=== PATIENT | male | born 1970 | race Caucasian/White ===

== ENCOUNTER 2016-04-18 11:37 | Inpatient (IN) | payer MEDICARE, BC, OTHER ==
[2016-04-18] MEDS ORDERED: HYDROmorphone 1 MG/ML 1 ML SYRINGE IVP STA ×2 (12:03→13:35)
[2016-04-18] MEDS ORDERED: SODIUM CHLORIDE 0.9% 1,000 ML IV STA (12:03)
[2016-04-18] MEDS ORDERED: SODIUM CHLORIDE 0.9% 500 ML IV STA (12:03)
[2016-04-18] MEDS ORDERED: ONDANSETRON 4 MG/2 ML VIAL IVP STA (12:03)
[2016-04-18 13:28] LABS: Basophils # (A) 0.1 k/uL (0-0.2); Basophils % (A) 0 %; CH 29.5; CHCM 31.1; Eosinophils # (A) 0.3 k/uL (0-0.7); Eosinophils % (A) 2 %; HCT 42.8 % (39.0-53.0); HDW 2.98; HGB 13.2 gm/dL (13.0-17.5); Hypochromasia Moderate; Large Platelets Flag Marked; Luc # (Auto) 0.39; Luc % (Auto) 3; Lymphocytes # (A) 2.5 k/uL (1.0-4.8); Lymphocytes % (A) 16 %; MCH 29.4 pg (25.0-35.0); MCHC 30.9 g/dL (31.0-37.0); MCV 95.3 fL (80.0-100.0); Mean Platelet Volume 14.1; Monocytes # (A) 1.8 k/uL (0-1.0); Monocytes % (A) 12 %; Neutrophils # (A) 10.8 k/uL (1.3-7.7); Neutrophils % (A) 68 %; RBC 4.49 m/uL (4.30-5.90); RDW 15.9 % (11.5-15.5); WBC 15.8 k/uL (3.8-10.6); WBC (Perox) 16.19
[2016-04-18 13:32] LABS: ALT 31 U/L (21-72); AST 25 U/L (17-59); Alkaline Phosphatase 96 U/L (38-126); Amylase 298 U/L (30-110); Anion Gap 13 mmol/L; Blood Urea Nitrogen 16 mg/dL (9-20); Calcium 8.8 mg/dL (8.4-10.2); Carbon Dioxide 30 mmol/L (22-30); Chloride 100 mmol/L (98-107); Glucose 104 mg/dL (74-99); Non-African American GFR(MDRD) >60 (>60 ml/min/1.73 sqM); Potassium 4.2 mmol/L (3.5-5.1); Sodium 143 mmol/L (137-145); Total Bilirubin 0.5 mg/dL (0.2-1.3); Total Protein 7.2 g/dL (6.3-8.2)
[2016-04-18 13:35] LABS: INR 3.9 (<1.1); Partial Thromboplastin Time 35.9 sec (22.0-30.0)
[2016-04-18 13:45] LABS: Creatine Kinase 24 U/L (55-170)
--- NOTE | 2016-04-18 13:46 | XR ---
EXAMINATION TYPE: XR KUB DATE OF EXAM: 04/18/2016 1:41 PM COMPARISON: 09/22/2015 HISTORY: Abdominal pain, nausea and vomiting TECHNIQUE: Single supine KUB image of the abdomen is obtained. FINDINGS: The osseous structures are intact. The bowel gas pattern is nonspecific. Lung bases are clear. 5 mm c alcification overlying the left upper quadrant. There is a chronic appearing deformity of the left ri b cage suggestive of previous trauma. The heart is enlarged. Air-fluid levels in the right lower quadrant noted. IMPRESSION: 1. Could not exclude a 5 mm left renal calculus. Curvilinear calcification overlying the left upper q uadrant is stable and nonspecific. 2. Nonspecific abdomen with air-fluid levels correlate for ileus or enteritis. Partial obstruction no t excluded.
[2016-04-18 13:56] LABS: Appearance,Urine Clear (Clear); Bilirubin,Urine Negative (Negative); Glucose,Urine (UA) Negative (Negative); Ketones,Urine 1+ (Negative); Leukocyte Esterase,Urine Negative (Negative); Nitrite,Urine Negative (Negative); PH, Urine 7.5 (5.0-8.0); Protein,Urine Trace (Negative); Specific Gravity,Urine 1.008 (1.001-1.035); UA Billing (MACRO vs. MICRO) CHEM; Urobilinogen,Urine <2.0 mg/dL (<2.0)
[2016-04-18 13:58] LABS: Creatine Kinase MB <0.2 ng/mL (0.0-2.4); Troponin I <0.012 ng/mL (0.000-0.034)
[2016-04-18] MEDS ORDERED: SODIUM CHLORIDE 0.9% 500 ML IV ONE (14:30)
[2016-04-18] MEDS ORDERED: RX INFO: IV CONTRAST WAS GIVEN 1 EACH MISC MISCELLANE PRN (14:31)
[2016-04-18] MEDS ORDERED: cefTRIAXone 2,000 MG in SODIUM CHLORIDE 0.9% 100 ML IVPB STA (14:31)
--- NOTE | 2016-04-18 14:40 | ED ---
Abdominal Pain HPI - General Chief Complaint: Abdominal Pain Stated Complaint: ABDOMINAL PAIN Time Seen by Provider: 04/18/16 11:54 Source: patient Mode of arrival: wheelchair Limitations: no limitations - History of Present Illness Initial Comments: Abdominal pain him a he has a history of pancreatitis he feels it's back again complaining about the epigastric pain started about 2 days ago he been now vomiting been nauseous and also had a diarrhea. He is immunocompromised he is pancreatic transplant patient he denies any fever no chills he does have a history of alcohol use in the past he has a history of complex transplant is included pancreatitis and some other internal organs. He denies any fever has some chills no neck pain no chest pain does have abdominal pain and diarrhea no frequency urgency dysuria no weakness of upper or lower extremity - Related Data Home Medications Medication Instructions Recorded Confirmed Calcium Citrate/Vitamin D3 1 tab PO BID 09/02/13 04/18/16 [Calcium Citrate - Vit D3 Tab] Clopidogrel [Plavix] 75 mg PO QAM 09/02/13 04/18/16 Ferrous Gluconate 325 mg PO BID 09/02/13 04/18/16 Magnesium Gluconate [Magonate] 500 mg PO BID 09/02/13 04/18/16 Methadone [Dolophine] 5 mg PO BID 09/02/13 04/18/16 Metoprolol Tartrate [Lopressor] 50 mg PO BID 09/02/13 04/18/16 Multivitamin [Men's Multi-Vitamin] 1 tab PO QAM 09/02/13 04/18/16 Omeprazole [PriLOSEC] 40 mg PO AC-BID 09/02/13 04/18/16 Sertraline [Zoloft] 100 mg PO QAM 09/02/13 04/18/16 Sulfamethox-Tmp 800-160Mg [Bactrim 0.5 tab PO MOWEFR 09/02/13 04/18/16 DS 800-160 mg] Tacrolimus [Prograf] 1 mg PO HS 09/02/13 04/18/16 Tacrolimus [Prograf] 2 mg PO AC-BRKFST 09/02/13 04/18/16 Tamsulosin HCl [Flomax] 0.4 mg PO QAM 09/02/13 04/18/16 Ursodiol [Actigall] 300 mg PO BID 09/02/13 04/18/16 clonazePAM [KlonoPIN] 0.5 mg PO BID 09/02/13 04/18/16 Albuterol Sulfate [Proair 2 puff PO RT-Q4H PRN 09/22/15 04/18/16 Respiclick] Cholecalciferol (Vitamin D3) 10,000 unit PO QAM 09/22/15 04/18/16 [Vitamin D3] Hydrocodone/Acetaminophen 1 tab PO QID 09/22/15 04/18/16 [Hydrocodon-Acetaminophn 10-325] Hydrocortisone 15 mg PO BID 09/22/15 04/18/16 Mspayy-Qfkffpcu-Nssjnsj [Zenpep 10] 1 cap PO BID 09/22/15 04/18/16 Metoclopramide [Reglan] 10 mg PO BID 09/22/15 04/18/16 Naloxegol Oxalate [Movantik] 25 mg PO HS 09/22/15 04/18/16 Sertraline [Zoloft] 50 mg PO QAM 09/22/15 04/18/16 Warfarin Sodium 3 mg PO HS 09/22/15 04/18/16 Previous Rx's Medication Instructions Recorded Ondansetron HCl [Zofran] 4 mg PO TID #30 tablet 04/03/16 Allergies Allergy/AdvReac Type Severity Reaction Status Date / Time ketorolac tromethamine AdvReac migraines Verified 04/18/16 11:50 [From Toradol] morphine AdvReac Itching Verified 04/18/16 11:50 Review of Systems ROS Statement: Those systems with pertinent positive or pertinent negative responses have been documented in the HPI. ROS Other: All systems not noted in ROS Statement are negative. 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, gastritis, gastroparesis, pt regurgitates after eating , past pancreatitis, adrenal insufficiency, chronic anemia, tracheobronchitis History of Any Multi-Drug Resistant Organisms: MRSA Date of last positivie culture/infection: 2002 MDRO Source:: "carrier" only per pt nasal swab Additional Past Surgical History / Comment(s): STATES MULTIPLE STOMACH SX, 2003 HAD 4 ORGAN TRANSPLANT: SMALL BOWEL, PANCREAS, duodenum, AND STOMACH performed at the [facility], knee surgical repair after injury on a barbed wire fence, as infant he had heart surgery for closed valves, EGDs and colonoscopies with last EGD 08/08/15. Past Anesthesia/Blood Transfusion Reactions: No Reported Reaction Additional Past Anesthesia/Blood Transfusion Reaction / Comment(s): STATES R/T TO MULTIPLE SX HE REQUIRES A LOT OF MEDICATION for anesthesia. He has had multiple blood transfusions without reaction. Past Psychological History: Anxiety, Depression Additional Psychological History / Comment(s): Pt resides with his significant other. He is independent. He drives. Smoking Status: Former smoker Past Alcohol Use History: Occasional Additional Past Alcohol Use History / Comment(s): Started smoking about 1981 and quit in 2011 Past Drug Use History: None Reported - Past Family History Mother History Unknown: Yes Additional Family Medical History / Comment(s): pt is adopted, does not know any hx Father History Unknown: Yes Additional Family Medical History / Comment(s): pt is adopted, does not know any hx General Exam - General Exam Comments Initial Comments: General: The patient is awake and alert, severe distress, he looks pale GCS is 15 Skin: Skin is warm and dry and no rashes or lesions are noted. Eye: Pupils are equal, round and reactive to light, extra-ocular movements are intact; there is normal conjunctiva bilaterally. Ears, nose, mouth and throat: There are moist mucous membranes and no oral lesions. Neck: The neck is supple, there is no tenderness . Cardiovascular: There is a regular rate and rhythm. No murmur, rub or gallop is appreciated. Respiratory: To auscultation bilateral, no wheezing no rhonchi no distress respiratory simeon noticed Gastrointestinal: Fairly tender in epigastric area and tender and paraumbilical area, decreased breath sounds no guarding no rebounds Back: There is no tenderness to palpation in the midline. There is no obvious deformity. Musculoskeletal: Normal ROM, no tenderness, There is no pedal edema. There is no calf tenderness or swelling. No cords were appreciated. Neurological: CN II-XII intact, Cranial nerves III through XII are intact. There are no obvious motor or sensory deficits. Coordination appears grossly intact. Speech is normal. Psychiatric: Cooperative, appropriate mood & affect, normal judgment. Limitations: no limitations Course Vital Signs 04/18/16 04/18/16 04/18/16 11:48 12:57 13:34 Temperature 99.2 F 98.7 F Pulse Rate 90 78 Respiratory 18 18 16 Rate Blood Pressure 138/65 156/75 145/76 O2 Sat by Pulse 95 98 98 Oximetry 04/18/16 04/18/16 14:15 14:53 Temperature 99.0 F Pulse Rate 87 121 H Respiratory 16 20 Rate Blood Pressure 162/83 162/83 O2 Sat by Pulse 94 L 94 L Oximetry Reason was reassessed at 1500, attempt was 99.2 white count is 15.8 with a left shift INR is 3.9 compressive metabolic panel is within normal range lipase lipase is 1600 Amylase is advised to 98, considering his pain or history of pancreatic transplant with the leukocytosis mild fever rule culture blood as well as urine and start him and rhythm. Can't about x-ray Rocephin 2 g IV him over the admit him and Dr. Carrion service, CT of the abdomen be performed as well Medical Decision Making - Lab Data Result diagrams: 04/18/16 12:50 04/18/16 12:50 Lab Results 04/18/16 04/18/16 04/18/16 Range/Units 12:50 12:50 12:50 WBC 15.8 H (3.8-10.6) k/uL RBC 4.49 (4.30-5.90) m/uL Hgb 13.2 (13.0-17.5) gm/dL Hct 42.8 (39.0-53.0) % MCV 95.3 (80.0-100.0) fL MCH 29.4 (25.0-35.0) pg MCHC 30.9 L (31.0-37.0) g/dL RDW 15.9 H (11.5-15.5) % Plt Count 171 (150-450) k/uL Neutrophils % 68 % Lymphocytes % 16 % Monocytes % 12 % Eosinophils % 2 % Basophils % 0 % Neutrophils # 10.8 H (1.3-7.7) k/uL Lymphocytes # 2.5 (1.0-4.8) k/uL Monocytes # 1.8 H (0-1.0) k/uL Eosinophils # 0.3 (0-0.7) k/uL Basophils # 0.1 (0-0.2) k/uL Hypochromasia Moderate PT (9.0-12.0) sec INR (<1.1) APTT (22.0-30.0) sec Sodium 143 (137-145) mmol/L Potassium 4.2 (3.5-5.1) mmol/L Chloride 100 (98-107) mmol/L Carbon Dioxide 30 (22-30) mmol/L Anion Gap 13 mmol/L BUN 16 (9-20) mg/dL Creatinine 1.22 (0.66-1.25) mg/dL Est GFR (MDRD) Af Amer >60 (>60 ml/min/1.73 sqM) Est GFR (MDRD) Non-Af >60 (>60 ml/min/1.73 sqM) Glucose 104 H (74-99) mg/dL Plasma Lactic Acid [place] (0.7-2.0) mmol/L Calcium 8.8 (8.4-10.2) mg/dL Total Bilirubin 0.5 (0.2-1.3) mg/dL AST 25 (17-59) U/L ALT 31 (21-72) U/L Alkaline Phosphatase 96 (38-126) U/L Total Creatine Kinase 24 L (55-170) U/L CK-MB (CK-2) <0.2 (0.0-2.4) ng/mL CK-MB (CK-2) Rel Index Troponin I <0.012 (0.000-0.034) ng/mL Total Protein 7.2 (6.3-8.2) g/dL Albumin 3.9 (3.5-5.0) g/dL Amylase 298 H (30-110) U/L Lipase 1609 H (23-300) U/L Urine Color Urine Appearance (Clear) Urine pH (5.0-8.0) Ur Specific [place] (1.001-1.035) Urine Protein (Negative) Urine Glucose (UA) (Negative) Urine Ketones (Negative) Urine Blood (Negative) Urine Nitrate (Negative) Urine Bilirubin (Negative) Urine Urobilinogen (<2.0) mg/dL Ur Leukocyte Esterase (Negative) 04/18/16 04/18/16 04/18/16 Range/Units 12:50 12:50 13:45 WBC (3.8-10.6) k/uL RBC (4.30-5.90) m/uL Hgb (13.0-17.5) gm/dL Hct (39.0-53.0) % MCV (80.0-100.0) fL MCH (25.0-35.0) pg MCHC (31.0-37.0) g/dL RDW (11.5-15.5) % Plt Count (150-450) k/uL Neutrophils % % Lymphocytes % % Monocytes % % Eosinophils % % Basophils % % Neutrophils # (1.3-7.7) k/uL Lymphocytes # (1.0-4.8) k/uL Monocytes # (0-1.0) k/uL Eosinophils # (0-0.7) k/uL Basophils # (0-0.2) k/uL Hypochromasia PT 38.0 H (9.0-12.0) sec INR 3.9 (<1.1) APTT 35.9 H (22.0-30.0) sec Sodium (137-145) mmol/L Potassium (3.5-5.1) mmol/L Chloride (98-107) mmol/L Carbon Dioxide (22-30) mmol/L Anion Gap mmol/L BUN (9-20) mg/dL Creatinine (0.66-1.25) mg/dL Est GFR (MDRD) Af Amer (>60 ml/min/1.73 sqM) Est GFR (MDRD) Non-Af (>60 ml/min/1.73 sqM) Glucose (74-99) mg/dL Plasma Lactic Acid Barrie 1.5 (0.7-2.0) mmol/L Calcium (8.4-10.2) mg/dL Total Bilirubin (0.2-1.3) mg/dL AST (17-59) U/L ALT (21-72) U/L Alkaline Phosphatase (38-126) U/L Total Creatine Kinase (55-170) U/L CK-MB (CK-2) (0.0-2.4) ng/mL CK-MB (CK-2) Rel Index Troponin I (0.000-0.034) ng/mL Total Protein (6.3-8.2) g/dL Albumin (3.5-5.0) g/dL Amylase (30-110) U/L Lipase (23-300) U/L Urine Color Yellow Urine Appearance Clear (Clear) Urine pH 7.5 (5.0-8.0) Ur Specific [place] 1.008 (1.001-1.035) Urine Protein Trace H (Negative) Urine Glucose (UA) Negative (Negative) Urine Ketones 1+ H (Negative) Urine Blood Negative (Negative) Urine Nitrate Negative (Negative) Urine Bilirubin Negative (Negative) Urine Urobilinogen <2.0 (<2.0) mg/dL Ur Leukocyte Esterase Negative (Negative) Disposition Clinical Impression: Pancreatitis, Ileus, Pancreatitis of transplanted pancreas Disposition: ADMITTED IP TO THIS [facility] Condition: Fair
[2016-04-18] MEDS ORDERED: NALOXONE 0.4 MG/ML 1 ML VIAL IV PRN (15:25)
[2016-04-18] MEDS: HYDROmorphone 1 MG/ML 1 ML SYRINGE IVP PRN ×4 (15:32→22:14)
[2016-04-18] MEDS ORDERED: ALBUTEROL NEBULIZED 2.5 MG/3 ML INHALATION PRN (15:34)
--- NOTE | 2016-04-18 16:28 | CT ---
EXAMINATION TYPE: CT abdomen pelvis w con DATE OF EXAM: 04/18/2016 4:03 PM COMPARISON: Chest CT November 09, 2012 HISTORY: Middle upper abdominal pain with nausea and vomiting x [address] DLP: 1684.00 mGycm, Automated Exposure Control for Dose Reduction was Utilized. CONTRAST: CT scan of the abdomen and pelvis is performed without oral and with IV Contrast, patient injected wi th 100 mL of Omnipaque 300. FINDINGS: LUNG BASES: Some left-sided gynecomastia is suspected on axial image 1 versus possible scar, partiall y imaged. This correlates with gynecomastia on prior chest CT. LIVER/GB: No significant abnormality is appreciated. PANCREAS: There is truncation of distal pancreatic body and tail. Pancreatic duct is mildly dilated i n the proximal body and head. No obvious mass is present. SPLEEN: Spleen is tough to visualize distinct from liver but likely is absent. ADRENALS: No significant abnormality is seen. KIDNEYS: A few low-density subcentimeter lesions scattered throughout both kidneys likely reflect sim ple cysts but are too small to definitively characterize. BOWEL: The evaluation of bowel is suboptimal due to lack of enteric contrast. There is no suspicious small or large bowel dilatation. There is suspected surgical sutures near level of gastric antrum see n best coronal image 29. There is poor visualization of duodenal sweep which may be surgically resect ed. There is suspected surgical sutures in the proximal right transverse colon. Distal remnant sigmoi d colon extends into the right lower quadrant which is mildly prominent and fluid-filled, this ends i n surgical sutures in the mid to lower abdomen near axial image 57. PROSTATE/SEMINAL VESICLES: No gross abnormality seen. LYMPH NODES: No greater than 1cm abdominal or pelvic lymph nodes are appreciated. OSSEOUS STRUCTURES: Disc space narrowing L4-L5 level is present. OTHER: There is unusual prominent vessel arising from the anterior aorta infrarenal location extendin g towards the left upper abdomen appears to have communication through branch vessel of the SMA. This is seen best on axial image 32. Curvilinear density along left lateral margin could reflect sutures. There is moderate plaque in this vessel measuring up to 2.9 cm in diameter. This could reflect fistu lous communication or aneurysm related to prior splenectomy. Clinical correlation is advised. Correla tion with old outside studies would be beneficial. Below this there is felt likely occluded LORENA to le ft of midline near axial image 46. Slight swirling of mesentery in the epigastric region is seen. IMPRESSION: 1. No bowel obstruction is seen. No significant acute finding is identified to account for patient's symptoms. 2. Unusual mid abdominal findings, strict correlation with history of prior surgery identified as the re is suspected surgery involving the colon, spleen, and duodenal sweep. There is abnormal dilated ve ssel originating from the anterior infrarenal abdominal aorta of uncertain etiology. Correlation with old outside studies and prior surgery is necessary.
[2016-04-18] MEDS: SULFAMETHOX-TMP 400-80MG 1 EACH TAB PO SCH (17:07)
[2016-04-18] MEDS: HYDROcodone/APAP 10-325MG 1 EACH TAB PO SCH ×2 (18:21→21:56)
[2016-04-18] MEDS: METOPROLOL TARTRATE 50 MG TAB PO SCH (20:14)
[2016-04-18] MEDS: URSODIOL 300 MG CAP PO SCH (20:15)
[2016-04-18] MEDS: METOCLOPRAMIDE 10 MG TAB PO SCH (20:15)
[2016-04-18] MEDS: LIPASE 5,000/PROTEASE 17,000/AMYLASE 27,0000 PO SCH (20:15)
[2016-04-18] MEDS: HYDROCORTISONE 10 MG TAB PO SCH (20:16)
[2016-04-18] MEDS: TACROLIMUS 1 MG CAP PO SCH (20:16)
[2016-04-18] MEDS: MAGNESIUM OXIDE 400 MG TAB PO SCH (20:16)
[2016-04-18] MEDS: METHADONE 5 MG TAB PO SCH (20:32)
[2016-04-18] MEDS: clonazePAM 0.5 MG TAB PO SCH (20:32)
[2016-04-18 20:40] LABS: INR 4.2 (<1.1); Prothrombin Time 41.1 sec (9.0-12.0)
[2016-04-18] MEDS ORDERED: NON-FORMULARY DRUG (Naloxegol Oxalate [Movantik] 25 MG) PO SCH (21:00)
[2016-04-19] MEDS: HYDROmorphone 1 MG/ML 1 ML SYRINGE IVP PRN ×11 (00:11→23:29)
[2016-04-19] MEDS: HYDROcodone/APAP 10-325MG 1 EACH TAB PO SCH ×5 (01:34→23:28)
[2016-04-19] MEDS: DILTIAZEM 125 MG in SODIUM CHLORIDE 0.9% 100 ML IV SCH ×2 (02:30→15:06)
[2016-04-19 06:59] LABS: Basophils # (A) 0.1 k/uL (0-0.2); Basophils % (A) 1 %; CH 28.9; CHCM 29.4; Eosinophils # (A) 0.1 k/uL (0-0.7); Eosinophils % (A) 1 %; HCT 45.2 % (39.0-53.0); HDW 2.79; HGB 13.4 gm/dL (13.0-17.5); Hypochromasia Marked; Large Platelets Flag Marked; Luc # (Auto) 0.42; Luc % (Auto) 3; Lymphocytes # (A) 2.5 k/uL (1.0-4.8); Lymphocytes % (A) 19 %; MCH 29.3 pg (25.0-35.0); MCHC 29.7 g/dL (31.0-37.0); MCV 98.7 fL (80.0-100.0); Macrocytosis Slight; Mean Platelet Volume 14.2; Monocytes # (A) 1.4 k/uL (0-1.0); Monocytes % (A) 11 %; Neutrophils # (A) 8.5 k/uL (1.3-7.7); Neutrophils % (A) 66 %; RBC 4.58 m/uL (4.30-5.90); RDW 15.7 % (11.5-15.5); WBC 12.9 k/uL (3.8-10.6); WBC (Perox) 14.88
[2016-04-19 07:36] LABS: Amylase 400 U/L (30-110)
[2016-04-19] MEDS: clonazePAM 0.5 MG TAB PO SCH ×2 (08:27→21:18)
[2016-04-19] MEDS: TACROLIMUS 1 MG CAP PO SCH ×2 (08:28→21:15)
[2016-04-19] MEDS: CLOPIDOGREL 75 MG TAB PO SCH (08:28)
[2016-04-19] MEDS: SERTRALINE 100 MG TAB PO SCH (08:29)
[2016-04-19] MEDS: METOCLOPRAMIDE 10 MG TAB PO SCH ×2 (08:29→21:14)
[2016-04-19] MEDS: MAGNESIUM OXIDE 400 MG TAB PO SCH ×2 (08:29→21:14)
[2016-04-19] MEDS: SERTRALINE 50 MG TAB PO SCH (08:29)
[2016-04-19] MEDS: URSODIOL 300 MG CAP PO SCH ×2 (08:29→21:15)
[2016-04-19] MEDS: LIPASE 5,000/PROTEASE 17,000/AMYLASE 27,0000 PO SCH ×2 (08:30→21:13)
[2016-04-19] MEDS: HYDROCORTISONE 10 MG TAB PO SCH ×2 (08:30→21:13)
[2016-04-19] MEDS: METOPROLOL TARTRATE 50 MG TAB PO SCH ×2 (08:31→21:14)
[2016-04-19] MEDS: TAMSULOSIN 0.4 MG CAP.ER.24H PO SCH (08:32)
[2016-04-19] MEDS: METHADONE 5 MG TAB PO SCH ×2 (08:39→21:18)
--- NOTE | 2016-04-19 08:58 | HP ---
DATE OF ADMISSION: 04/18/2016 CHIEF COMPLAINT: Abdominal pain. Mr. Dubon is a 46-year-old male with known history of pancreatitis, ( ) transplant including pancreas, stomach and duodenum, and small intestine and chronic pain, came to the hospital with complaints of abdominal pain, mainly in the epigastric region and unable to tolerate any p.o. diet. Patient does have pancreatic transplant at ( ) and is immunocompromised. Otherwise, denied any fever or chills. No chest pain or short of breath. Patient does history of alcohol abuse in the past. Patient denied recent illnesses and patient did have a similar admission with acute pancreatic a few months ago, patient was also found to have elevated WBC count and was started on antibiotics in the form of Zosyn empirically. Patient was found to have elevated lipase level at 1609 and ( ) level 298 on admission. REVIEW OF SYSTEMS: CONSTITUTIONAL: No fever. No chills. No weakness, malaise. RESPIRATORY: No cough or sputum production. CARDIOVASCULAR: No chest pain or short of breath. No leg swelling. ABDOMEN: The patient does have epigastric abdominal pain and nausea and no vomiting. No diarrhea. GENITOURINARY: No dysuria. No hematuria. ENDOCRINE: Negative. PSYCHIATRIC: Anxiety, anxious and ( ). All other fourteen-point review of systems negative except as above. 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 Chronic anemia and tracheobronchitis. History of methicillin-resistant Staphylococcus aureus. PAST SURGICAL HISTORY: Multiple stomach surgeries. In 2002, patient had ( ) transplant, small bowel, pancreas and duodenum and stomach performed at the [facility], left ( ) surgical repair after injury on barbed wire fence, ( ) he had heart surgery for closed valve, EGD and colonoscopy with last EGD on 08/08/2015. PSYCHOSOCIAL HISTORY: Anxiety and depression. SOCIAL HISTORY: Patient resides with his significant other. He is independent. He drives. Former smoker, started smoking age about 1981 and quit in 2011. FAMILY HISTORY: Patient adopted, not known. Home medications including. 1. Vitamin D3. 2. Lasix. 3. Ferrous Gluconate. 4. Magnesium gluconate. 5. Methadone. 6. Metoprolol. 7. Multivitamins. 8. Omeprazole. 9. Sertraline. 10. Bactrim DS 0.5 tablets p.o. Saturday, Saturday, Saturday. 11. Tacrolimus. 12. Tamsulosin. 13. Estradiol. 14. Klonopin. 15. ( ) sulfate. 16. Vitamin D3. 17. [place] 10. 18. Hydrocortisone. 19. ( ). 20. Reglan. 21. Movantick. 22. Zoloft. 23. Warfarin. PHYSICAL EXAMINATION: A 46-year-old male lying in bed. Awake, alert, oriented, x3. Appears to be in mild distress due to pain. VITALS: Blood pressure is 132/73, pulse 101, respirations 18, temperature afebrile. Pulse ox is 95% on room air. HEENT: Atraumatic, normocephalic. Neck is supple. No JVD. CVS: S1, S2 heard. No murmurs, no gallop, no rub. LUNGS: Bilateral air entry is present. No wheezing. No crackles. Nonlabored breathing. Decreased breath sounds bilaterally of lower lobes. ABDOMEN: Soft, moderate tenderness in the epigastric region and the upper abdomen. No guarding or rigidity. Bowel sounds are present. AUDIT MGR: Awake, alert and oriented x3. No focal neurological deficits. Cranial nerves grossly intact. EXTREMITIES: No edema. Pulses palpable bilaterally. No clubbing or cyanosis. PSYCHIATRIC: Cooperative, anxious. Appears to be in pain. LABORATORY DATA: WBC 15.8, hemoglobin 13.2, platelets 171, INR 3.9, sodium 143, potassium 4.2, chloride 100, bicarb is 30. BUN 16, creatinine 1.22. Liver enzymes within normal limits. Amylase 298 and lipase is 1609. UA negative for infection. INR is 3.[address] abdomen and pelvis showed no bowel obstruction ( ) mid abdominal findings. IMPRESSION: 1. Acute on chronic pancreatitis with intractable abdominal pain. 2. History of pancreas transplant. 3. History of ( ) transplant including pancreas, duodenum and ( ), in 2002 at [facility]. 4. 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 5. Atrial fibrillation, chronic. 6. Chronic pain syndrome on methadone. 7. Chronic obstructive pulmonary disease. 8. Gastroesophageal reflux disease. 9. History of Methicillin-resistant Staph aureus. 10. Adrenal insufficiency. 11. Chronic anemia. 12. Coumadin coagulopathy INR level of 3.9. 13. Chronic adrenal insufficiency. 14. Anemia of chronic disease. 15. Gastroparesis. 16. Previous history of smoking. 17. Paroxysmal atrial fibrillation. 18. Atrial fibrillation with rapid ventricular rate on admission, resolved now. DISCUSSION AND PLAN: This 45 -year-old male admitted to the hospital with acute pancreatitis, will continue with the IV fluids, pain management and Dilaudid, keep the patient n.p.o. until the pain improves and start back on his home medications including pain medications and once patient is tolerating p.o. diet. Patient does have elevated white count is 15.6 and patient was given a dose of Zosyn due to being immunocompromised patient. Otherwise, patient does not have any fever or chills. We will continue with the Lopressor and follow up closely. Prognosis is guarded. Further recommendations based on clinical course.
[2016-04-19] MEDS ORDERED: PANTOPRAZOLE 40 MG/10 ML VIAL IV SCH (09:00)
--- NOTE | 2016-04-19 14:21 | P.CRDCN ---
History of Present Illness Consult date: 04/19/16 History of present illness: This is a 46-year-old gentleman with history of smoking and alcohol use and also history of pancreatic transplantation done several years ago who was admitted to the hospital with complaints of nausea and vomiting and abdominal pain. It appears that patient has been treated for pancreatitis. Last night patient went into atrial fibrillation with fast and corresponds. Patient was asymptomatic. However patient was transferred for IV Cardizem therapy. This morning patient converted back to sinus rhythm. He seemed to be asymptomatic from atrial fibrillation. He does give history of having atrial fibrillation and also in the past several years ago. He claims he is not chronically in atrial fibrillation. He is also anticoagulated. I'm going to discontinue Cardizem at this time and continue with metoprolol. He is taking 50 mg by mouth twice a day. We cannot increase the dose because of low blood pressures. We'll continue to watch him and if he has any further recurrence ,may consider adding antiarrhythmic medication. However once his acute illness settles, he may stay in a sinus rhythm. 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 History of Any Multi-Drug Resistant Organisms: MRSA Date of last positivie culture/infection: 2002 MDRO Source:: unsure where when had organ transplant Additional Past Surgical History / Comment(s): STATES MULTIPLE STOMACH SX, 2002 HAD 4 ORGAN TRANSPLANT: SMALL BOWEL, PANCREAS, duodenum, AND STOMACH performed at the [facility], knee surgical repair after injury on a barbed wire fence, as infant he had heart surgery for closed valves, EGDs and colonoscopies with last EGD 08/08/15. Past Anesthesia/Blood Transfusion Reactions: No Reported Reaction Additional Past Anesthesia/Blood Transfusion Reaction / Comment(s): STATES R/T TO MULTIPLE SX HE REQUIRES A LOT OF MEDICATION for anesthesia. He has had multiple blood transfusions without reaction. Past Psychological History: Anxiety, Depression Additional Psychological History / Comment(s): Pt resides with his significant other. He is independent. He drives. Smoking Status: Former smoker Past Alcohol Use History: Occasional Additional Past Alcohol Use History / Comment(s): Started smoking about 1981 and quit in 2011 Past Drug Use History: None Reported - Past Family History Mother History Unknown: Yes Additional Family Medical History / Comment(s): pt is adopted, does not know any hx Father History Unknown: Yes Additional Family Medical History / Comment(s): pt is adopted, does not know any hx Medications and Allergies Home Medications Medication Instructions Recorded Confirmed Type Calcium Citrate/Vitamin D3 1 tab PO BID 09/02/13 04/18/16 History [Calcium Citrate - Vit D3 Tab] Clopidogrel [Plavix] 75 mg PO QAM 09/02/13 04/18/16 History Ferrous Gluconate 325 mg PO BID 09/02/13 04/18/16 History Magnesium Gluconate [Magonate] 500 mg PO BID 09/02/13 04/18/16 History Methadone [Dolophine] 5 mg PO BID 09/02/13 04/18/16 History Metoprolol Tartrate [Lopressor] 50 mg PO BID 09/02/13 04/18/16 History Multivitamin [Men's Multi-Vitamin] 1 tab PO QAM 09/02/13 04/18/16 History Omeprazole [PriLOSEC] 40 mg PO AC-BID 09/02/13 04/18/16 History Sertraline [Zoloft] 100 mg PO QAM 09/02/13 04/18/16 History Sulfamethox-Tmp 800-160Mg [Bactrim 0.5 tab PO MOWEFR 09/02/13 04/18/16 History DS 800-160 mg] Tacrolimus [Prograf] 1 mg PO HS 09/02/13 04/18/16 History Tacrolimus [Prograf] 2 mg PO AC-BRKFST 09/02/13 04/18/16 History Tamsulosin HCl [Flomax] 0.4 mg PO QAM 09/02/13 04/18/16 History Ursodiol [Actigall] 300 mg PO BID 09/02/13 04/18/16 History clonazePAM [KlonoPIN] 0.5 mg PO BID 09/02/13 04/18/16 History Albuterol Sulfate [Proair 2 puff PO RT-Q4H PRN 09/22/15 04/18/16 History Respiclick] Cholecalciferol (Vitamin D3) 10,000 unit PO QAM 09/22/15 04/18/16 History [Vitamin D3] Hydrocodone/Acetaminophen 1 tab PO QID 09/22/15 04/18/16 History [Hydrocodon-Acetaminophn 10-325] Hydrocortisone 15 mg PO BID 09/22/15 04/18/16 History Xrrteu-Ufhqyfcc-Nveeagf [Zenpep 10] 1 cap PO BID 09/22/15 04/18/16 History Metoclopramide [Reglan] 10 mg PO BID 09/22/15 04/18/16 History Naloxegol Oxalate [Movantik] 25 mg PO HS 09/22/15 04/18/16 History Sertraline [Zoloft] 50 mg PO QAM 09/22/15 04/18/16 History Warfarin Sodium 3 mg PO HS 09/22/15 04/18/16 History Allergies Allergy/AdvReac Type Severity Reaction Status Date / Time ketorolac tromethamine AdvReac migraines Verified 04/18/16 11:50 [From Toradol] morphine AdvReac Itching Verified 04/18/16 11:50 Physical Exam Vitals: Vital Signs Temp Pulse Pulse Pulse Resp BP BP 04/19/16 12:49 97.6 F 88 14 04/19/16 08:00 97.7 F 83 14 04/19/16 04:10 97.8 F 104 H 18 04/19/16 00:02 120 H 04/18/16 21:40 98.4 F 86 17 04/18/16 21:30 140 H 04/18/16 20:30 144/75 04/18/16 20:15 140 H 04/18/16 18:18 99.1 F 95 16 136/68 04/18/16 16:00 98.2 F 101 H 18 132/73 04/18/16 15:37 16 BP Pulse Ox 04/19/16 12:49 96/56 94 L 04/19/16 08:00 113/57 94 L 04/19/16 04:10 114/78 94 L 04/19/16 00:02 04/18/16 21:40 128/78 95 04/18/16 21:30 04/18/16 20:30 04/18/16 20:15 04/18/16 18:18 91 L 04/18/16 16:00 95 04/18/16 15:37 Intake and Output 04/18/16 04/19/16 04/19/16 22:59 06:59 14:59 Output Total 300 200 Balance -300 -200 Output: Urine 300 200 Other: Voiding Method Toilet Weight 98.7 kg 98.7 kg Patient Weight 04/20/16 06:59 Weight 98.7 kg GENERAL EXAM: Patient is alert and oriented and appears to be in moderate distress from the pain. HEENT: Normocephalic. Normal reaction of pupils, equal size, normal range of extraocular motion. No erythema or exudates in the throat. NECK: No masses, no nuchal rigidity. CHEST: No chest wall deformity. LUNGS: Equal air entry with no crackles or wheeze. HEART: S1 and S2 normal with no audible mumurs or gallops. Regular rhythm ABDOMEN: Distended and the diffuse tenderness and multiple scars from previous surgeries . SKIN: No rashes CENTRAL NERVOUS SYSTEM: No focal deficits. EXTREMITIES: No cyanosis, clubbing or edema. Results 04/19/16 05:50 04/18/16 12:50 Coagulation 04/18/16 Range/Units 20:08 PT 41.1 H (9.0-12.0) sec CBC 04/19/16 Range/Units 05:50 WBC 12.9 H (3.8-10.6) k/uL RBC 4.58 (4.30-5.90) m/uL Hgb 13.4 (13.0-17.5) gm/dL Hct 45.2 (39.0-53.0) % Plt Count 182 (150-450) k/uL Current Medications Generic Name Dose Route Start Last Admin Trade Name Freq PRN Reason Stop Dose Admin Acetaminophen/Hydrocodone Bitart 1 each 04/18/16 18:00 04/19/16 12:40 Mcrae [place] 10 PO 1 each QID GUY Administration Albuterol Sulfate 2.5 mg 04/18/16 15:34 Ventolin Nebulized INHALATION RT-Q4H PRN Shortness Of Breath Lipase/Protease/Amylase 2 each 04/18/16 21:00 04/19/16 08:[address] 5,000 Units Capsule PO 2 each BID GUY Administration Clonazepam 0.5 mg 04/18/16 21:00 04/19/16 08:27 Klonopin PO 0.5 mg BID GUY Administration Clopidogrel Bisulfate 75 mg 04/19/16 09:00 04/19/16 08:28 Plavix PO 75 mg QAM GUY Administration Hydrocortisone 15 mg 04/18/16 21:00 04/19/16 08:30 Cortef PO 15 mg BID GUY Administration Hydromorphone HCl 1 mg 04/18/16 15:24 04/19/16 12:41 Dilaudid IVP 1 mg Q1HR PRN Administration Pain Diltiazem HCl 125 mg/ Sodium 125 mls @ 10 mls/hr 04/19/16 01:00 04/19/16 02: 30 Chloride IV 10 mg/hr .[id number] GUY 10 mls/hr 10 MG/HR Administration Magnesium Oxide 400 mg 04/18/16 21:00 04/19/16 08:29 Mag-Ox PO 400 mg BID GUY Administration Methadone HCl 5 mg 04/18/16 21:00 04/19/16 08:39 Dolophine PO 5 mg BID GUY Administration Metoclopramide HCl 10 mg 04/18/16 21:00 04/19/16 08:29 Reglan PO 10 mg BID GUY Administration Metoprolol Tartrate 50 mg 04/18/16 21:00 04/19/16 08:31 Lopressor PO 50 mg BID GUY Administration Miscellaneous Information 1 each 04/18/16 14:31 Rx Info: Iv Contrast Was Given MISCELLANE 04/20/16 14:32 DAILY PRN Per Protocol Naloxone HCl 0.2 mg 04/18/16 15:25 Narcan IV Q2M PRN Opioid Reversal Ondansetron HCl 4 mg 04/18/16 15:32 Zofran IVP Q8HR PRN Nausea And Vomiting Pantoprazole Sodium 40 mg 04/19/16 09:00 04/19/16 08:31 Protonix IV 40 mg DAILY GUY Administration Sertraline HCl 50 mg 04/19/16 09:00 04/19/16 08:29 Zoloft PO 50 mg QAM GUY Administration Sertraline HCl 100 mg 04/19/16 09:00 04/19/16 08:29 Zoloft PO 100 mg QAM GUY Administration Tacrolimus 1 mg 04/18/16 21:00 04/18/16 20:16 Prograf PO 1 mg HS GUY Administration Tacrolimus 2 mg 04/19/16 07:30 04/19/16 08:28 Prograf PO 2 mg AC-BRKFST GUY Administration Tamsulosin HCl 0.4 mg 04/19/16 09:00 04/19/16 08:32 Flomax PO 0.4 mg QAM GUY Administration Trimethoprim/Sulfamethoxazole 1 each 04/18/16 16:15 04/18/16 17:07 Bactrim Ss PO 1 each MOWEFR GUY Administration Ursodiol 300 mg 04/18/16 21:00 04/19/16 08:29 Actigall PO 300 mg BID GUY Administration Intake and Output 04/18/16 04/19/16 04/19/16 22:59 06:59 14:59 Output Total 300 200 Balance -300 -200 Output: Urine 300 200 Other: Voiding Method Toilet Weight 98.7 kg 98.7 kg Patient Weight 04/20/16 06:59 Weight 98.7 kg 04/19/16 05:50 EKG Interpretations (text) Atrial fibrillation with rapid ventricular response. Patient is going to have another EKG after conversion Assessment and Plan (1) Paroxysmal atrial fibrillation Status: Acute (2) Pancreatitis Status: Acute (3) History of organ transplantation Status: Acute Plan: Patient converted back to sinus rhythm. He is on metoprolol 50 twice a day and will continue the beta lali and increase the dose as tolerated t. IV Cardizem to be discontinued. Echocardiogram to be done. Further recommend she' ll depend upon the results of the tests and clinical course.
[2016-04-20] MEDS: HYDROmorphone 1 MG/ML 1 ML SYRINGE IVP PRN ×10 (03:57→22:54)
[2016-04-20] MEDS: PANTOPRAZOLE 40 MG TABLET PO SCH (06:54)
[2016-04-20] MEDS: TACROLIMUS 1 MG CAP PO SCH ×2 (06:54→20:58)
[2016-04-20 07:13] LABS: Amylase 248 U/L (30-110); Anion Gap 12 mmol/L; Blood Urea Nitrogen 15 mg/dL (9-20); Calcium 7.7 mg/dL (8.4-10.2); Carbon Dioxide 29 mmol/L (22-30); Chloride 101 mmol/L (98-107); Glucose 97 mg/dL (74-99); Non-African American GFR(MDRD) >60 (>60 ml/min/1.73 sqM); Potassium 4.5 mmol/L (3.5-5.1); Sodium 142 mmol/L (137-145)
[2016-04-20] MEDS: METHADONE 5 MG TAB PO SCH ×2 (08:25→20:58)
[2016-04-20] MEDS: CLOPIDOGREL 75 MG TAB PO SCH (08:25)
[2016-04-20] MEDS: MAGNESIUM OXIDE 400 MG TAB PO SCH ×2 (08:25→20:58)
[2016-04-20] MEDS: clonazePAM 0.5 MG TAB PO SCH ×2 (08:25→20:58)
[2016-04-20] MEDS: LIPASE 5,000/PROTEASE 17,000/AMYLASE 27,0000 PO SCH ×2 (08:25→20:58)
[2016-04-20] MEDS: METOPROLOL TARTRATE 50 MG TAB PO SCH ×2 (08:26→20:58)
[2016-04-20] MEDS: METOCLOPRAMIDE 10 MG TAB PO SCH ×2 (08:26→20:58)
[2016-04-20] MEDS: TAMSULOSIN 0.4 MG CAP.ER.24H PO SCH (08:26)
[2016-04-20] MEDS: SERTRALINE 100 MG TAB PO SCH (08:26)
[2016-04-20] MEDS: URSODIOL 300 MG CAP PO SCH ×2 (08:26→20:58)
[2016-04-20 08:30] LABS: CH 28.7; CHCM 29.3; HCT 41.5 % (39.0-53.0); HDW 2.72; HGB 12.3 gm/dL (13.0-17.5); Hypochromasia Marked; Large Platelets Flag Marked; MCH 29.3 pg (25.0-35.0); MCHC 29.7 g/dL (31.0-37.0); MCV 98.5 fL (80.0-100.0); Macrocytosis Slight; Mean Platelet Volume 14.8; RBC 4.21 m/uL (4.30-5.90); RDW 15.6 % (11.5-15.5); WBC 12.2 k/uL (3.8-10.6); WBC (Perox) 13.99
[2016-04-20] MEDS: SERTRALINE 50 MG TAB PO SCH (08:32)
[2016-04-20] MEDS: HYDROCORTISONE 10 MG TAB PO SCH ×2 (08:32→20:58)
[2016-04-20 08:53] LABS: Add Differential Manual Differential
[2016-04-20 08:54] LABS: Howell-Jolly Bodies Present; Large Platelets Present; Nucleated Red Blood Cells 0 /100 WBC (0-0); Total Cells Counted 100
[2016-04-20 08:58] LABS: Target Cells Present
[2016-04-20] MEDS: HYDROcodone/APAP 10-325MG 1 EACH TAB PO SCH ×4 (09:55→20:57)
--- NOTE | 2016-04-20 10:17 | ECHOF ---
Referral Reason:Chest pain and cardiomyopathy MEASUREMENTS -------- HEIGHT: 188.0 cm WEIGHT: 98.4 kg BP: 96/56 RVIDd: 2.5 cm (< 3.3) IVSd: 1.3 cm (0.6 - 1.1) LVIDd: 4.7 cm (3.9 - 5.3) LVPWd: 1.2 cm (0.6 - 1.1) IVSs: 1.7 cm LVIDs: 2.9 cm LVPWs: 1.6 cm LA Diam: 2.8 cm (2.7 - 3.8) LAESV Index (A-L): 14.92 ml/m Ao Diam: 3.1 cm (2.0 - 3.7) AV Cusp: 2.0 cm (1.5 - 2.6) LA Diam: 3.2 cm (2.7 - 3.8) MV EXCURSION: 12.148 mm (> 18.000) MV EF SLOPE: 52 mm/s (70 - 150) EPSS: 0.2 cm MV E Anthony: 1.06 m/s MV DecT: 288 ms MV A Anthony: 0.66 m/s MV E/A Ratio: 1.59 FINDINGS -------- Sinus rhythm. This was a technically adequate study. There is mild concentric left ventricular hypertrophy. Overall left ventricular systolic function is normal with, an EF between 55 - 60 %. The right ventricle is normal in size. The left atrial size is normal. The right atrium is normal in size. The aortic valve is trileaflet and appears structurally normal. The mitral valve leaflets are mildly thickened. Mild mitral annular calcification present. Trace tricuspid regurgitation present. Pulmonic valve appears structurally normal. The aortic root size is normal. The pericardium is normal. CONCLUSIONS -------- 1. Sinus rhythm. 2. Mild mitral annular calcification present. 3. Trace tricuspid regurgitation present. 4. Pulmonic valve appears structurally normal. 5. The aortic root size is normal. 6. The pericardium is normal. 7. This was a technically adequate study. 8. There is mild concentric left ventricular hypertrophy. 9. Overall left ventricular systolic function is normal with, an EF between 55 - 60 %. 10. The right ventricle is normal in size. 11. The left atrial size is normal. 12. The right atrium is normal in size. 13. The aortic valve is trileaflet and appears structurally normal. 14. The mitral valve leaflets are mildly thickened. BRIM AND CROWN PRESSER: Olesya Hart RDCS
[2016-04-20 11:33] LABS: INR 3.5 (<1.1); Prothrombin Time 33.7 sec (9.0-12.0)
--- NOTE | 2016-04-20 12:48 | PN ---
DATE OF SERVICE: 04/19/2016 Interval history: Mr. Dubon is a 46-year-old male with known history of pancreatitis and four organ transplant including pancreas stomach, duodenum and small intestine and chronic pain syndrome was admitted to the hospital with epigastric abdominal pain and unable to tolerate p.o. diet. Patient was found to have an elevated lipase level and acute pancreatitis. Currently abdominal pain slightly improved. Otherwise, patient developed atrial fibrillation with rapid ventricular rate. Patient was started back on Metoprolol dose. IV Cardizem has been discontinued. Cardiology has been following this patient. Otherwise, patient denied any complaints of chest pain at this time. No fever. No chills. REVIEW OF SYSTEMS: CONSTITUTIONAL: No fever. No chills. No weakness or malaise. RESPIRATORY: No cough or sputum production. CARDIOVASCULAR: No chest pain, no palpitations. ABDOMEN: Patient does have nausea and no episodes of vomiting. Patient does have abdominal pain. No diarrhea. GENITOURINARY: No dysuria or hematuria. ENDOCRINE: Negative. SKIN: Negative. All other fourteen-point review of systems negative except as above. CURRENT MEDICATIONS: Reviewed. PHYSICAL EXAMINATION: 46-year-old male lying in bed comfortably, awake, alert, in mild distress due to pain. VITALS: Blood pressure is 128/68, pulse is 79, respiratory rate 16, temperature afebrile, pulse ox 95% on 2 L nasal cannula. HEENT: Atraumatic, normocephalic. Neck is supple. No JVD. CVS: S1, S2 heard. No murmurs, no gallops. Pulses irregularly irregular. LUNGS: Bilateral air entry is present. No wheezing. No crackles. ABDOMEN: Soft. Epigastric tenderness, moderate. Bowel sounds are present. No guarding or rigidity. Bowel sounds are present. 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 No focal neurologic deficit. Cranial nerves grossly intact. EXTREMITIES: No edema. Pulses palpable bilaterally. No clubbing. No cyanosis. PSYCHIATRIC: Cooperative. Nonsuicidal. SKIN: No rash or skin lesions. LABORATORY DATA: WBC 12.9, hemoglobin 13.4, platelets 182, amylase is increased to 400 and lipase level increased to 1973, UA negative. IMPRESSION: 1. Acute on chronic pancreatitis. 2. History of pancreatic transplant. 3. History of four organ transplant at [facility]. 4. History of mesenteric artery thrombus, on Coumadin for that. 5. Chronic atrial fibrillation which is atrial fibrillation with rapid ventricular rate improved now. 6. Chronic pain syndrome on methadone at home. 7. Chronic obstructive pulmonary disease. 8. Gastroesophageal reflux disease. 9. History of Methicillin-resistant Staph aureus. 10. Adrenal insufficiency. 11. Chronic anemia. 12. Coumadin coagulopathy on admission. 13. Chronic adrenal insufficiency. 14. Anemia of chronic disease. 15. Gastroparesis. 16. Previous history of smoking. DISCUSSION AND PLAN: A 46-year-old male admitted to the hospital with worsening abdominal pain and acute on chronic pancreatitis. Patient also developed acute atrial fibrillation with rapid ventricular rate. Rate is controlled now. Continue the pain management. Continue with IV fluids and advance the diet as tolerated. Further recommendations based on the clinical course. Follow-up WBC level tomorrow. Further recommendations based on the clinical course. Prognosis is guarded.
[2016-04-20] MEDS: SULFAMETHOX-TMP 400-80MG 1 EACH TAB PO SCH (17:12)
[2016-04-21] MEDS: HYDROmorphone 1 MG/ML 1 ML SYRINGE IVP PRN ×14 (02:17→23:38)
[2016-04-21] MEDS: SODIUM CHLORIDE 0.9% 1,000 ML IV SCH ×3 (02:19→20:20)
[2016-04-21] MEDS: TACROLIMUS 1 MG CAP PO SCH ×2 (07:02→20:13)
[2016-04-21] MEDS: PANTOPRAZOLE 40 MG TABLET PO SCH (07:02)
[2016-04-21] MEDS: LIPASE 5,000/PROTEASE 17,000/AMYLASE 27,0000 PO SCH ×2 (08:31→20:12)
[2016-04-21] MEDS: HYDROCORTISONE 10 MG TAB PO SCH ×2 (08:33→20:14)
[2016-04-21] MEDS: METOPROLOL TARTRATE 50 MG TAB PO SCH ×2 (08:33→20:13)
[2016-04-21] MEDS: CLOPIDOGREL 75 MG TAB PO SCH (08:35)
[2016-04-21] MEDS: SERTRALINE 50 MG TAB PO SCH (08:35)
[2016-04-21] MEDS: URSODIOL 300 MG CAP PO SCH ×2 (08:35→20:13)
[2016-04-21] MEDS: MAGNESIUM OXIDE 400 MG TAB PO SCH ×2 (08:35→20:14)
[2016-04-21] MEDS: METOCLOPRAMIDE 10 MG TAB PO SCH ×2 (08:36→20:13)
[2016-04-21] MEDS: METHADONE 5 MG TAB PO SCH ×2 (08:39→20:19)
[2016-04-21] MEDS: clonazePAM 0.5 MG TAB PO SCH ×2 (08:39→20:11)
[2016-04-21] MEDS: HYDROcodone/APAP 10-325MG 1 EACH TAB PO SCH ×4 (10:27→21:37)
[2016-04-21] MEDS: TAMSULOSIN 0.4 MG CAP.ER.24H PO SCH (10:41)
[2016-04-21] MEDS: SERTRALINE 100 MG TAB PO SCH (10:41)
--- NOTE | 2016-04-21 13:10 | PN ---
DATE OF SERVICE: 04/20/2016 Mr. Lopez is a 46-year-old male with known history of pancreatitis and a four organ transplant including pancreas, stomach, duodenum and small intestine and a chronic pain, was admitted to the hospital with epigastric abdominal, unable to tolerate p.o. The patient was found to have elevated lipase level and amylase level which are trending down at this time. Otherwise, the patient also has history of atrial fibrillation and developed rapid ventricular rate while in the hospital. He is now on Cardizem drip, currently heart rate is controlled with metoprolol. 2D echo shows normal ejection fraction, no residual valvular motion abnormality and Cardiology has seen the patient. Otherwise, the patient is tolerating liquid diet now and complaining of abdominal pain 8 out of 10. No chills. No acute overnight issues. REVIEW OF SYSTEMS: CONSTITUTIONAL: No fever. No chills. RESPIRATORY: No cough or congestion. CARDIOVASCULAR: No chest pain or shortness of breath. ABDOMEN: No nausea, no vomiting. The patient does have abdominal pain. No diarrhea. No constipation. GENITOURINARY: No dysuria. No hematuria. ENDOCRINE: Negative. PSYCHIATRIC: Negative. SKIN: ( ) Other fourteen-point review of as above. CURRENT MEDICATIONS: Reviewed. PHYSICAL EXAMINATION: A 46-year-old male lying in the bed. Awake, alert, oriented, x3. Patient in no apparent distress. VITALS: Blood pressure is 135/62, pulse 84, respirations 18, temperature afebrile, pulse ox 82% on room air. HEENT: Atraumatic, normocephalic. Neck is supple. No JVD. CVS: S1, S2 heard. No murmurs, no gallop. LUNGS: Bilateral air entry is present. No wheezing, no rales. ABDOMEN: Soft. Epigastric tenderness moderate. No guarding or rigidity. Bowel sounds are present. 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 No focal deficits. Cranial nerves intact. EXTREMITIES: No edema. Pulses palpable bilaterally. No clubbing or tenderness. PSYCHIATRIC: Cooperative. Nonsuicidal. SKIN: No rash or skin lesions. LABORATORY DATA: WBC 12.2, hemoglobin 12.3, platelets 132. Sodium 142, potassium 4.8, chloride 101, bicarbonate 29, BUN 15, creatinine 1.08. Lipase is elevated to 1003. Amylase 248. INR is 3.5. IMPRESSION: 1. Acute on chronic pancreatitis with abdominal pain. Patient is still having abdominal pain. 2. History of four organ transplant as discussed above. 3. History of mesenteric artery thrombus and Coumadin for that. 4. Chronic atrial fibrillation, currently rate controlled. Continue with anticoagulation with Coumadin as well. 5. Chronic pain syndrome on methadone at home. 6. Chronic obstructive pulmonary disease. 7. GERD. 8. History of MRSA. 9. Chronic adrenal insufficiency. 10. Chronic anemia. 11. Coumadin coagulopathy on admission. 12. Anemia of chronic disease. 13. Gastroparesis. 14. History of smoking. 46-year-old male admitted to the hospital with abdominal pain and found to have elevated lipase and amylase level and now trending down. Currently the patient is admitted. Current IV placed. Will continue the liquid diet and advance as tolerated. Heart rate is controlled now. Continue the anticoagulation and Coumadin monitoring and will follow up closely. Further recommendations based on clinical results.
[2016-04-22] MEDS: HYDROmorphone 1 MG/ML 1 ML SYRINGE IVP PRN ×12 (01:17→23:30)
[2016-04-22] MEDS: SODIUM CHLORIDE 0.9% 1,000 ML IV SCH ×3 (06:20→20:25)
[2016-04-22] MEDS: TACROLIMUS 1 MG CAP PO SCH ×2 (06:40→20:20)
[2016-04-22] MEDS: PANTOPRAZOLE 40 MG TABLET PO SCH (06:40)
[2016-04-22] MEDS: LIPASE 5,000/PROTEASE 17,000/AMYLASE 27,0000 PO SCH ×2 (08:01→20:20)
[2016-04-22] MEDS: CLOPIDOGREL 75 MG TAB PO SCH (08:01)
[2016-04-22] MEDS: METOCLOPRAMIDE 10 MG TAB PO SCH ×2 (08:02→20:20)
[2016-04-22] MEDS: METOPROLOL TARTRATE 50 MG TAB PO SCH ×2 (08:02→20:21)
[2016-04-22] MEDS: MAGNESIUM OXIDE 400 MG TAB PO SCH ×2 (08:02→20:20)
[2016-04-22] MEDS: SERTRALINE 100 MG TAB PO SCH (08:02)
[2016-04-22] MEDS: TAMSULOSIN 0.4 MG CAP.ER.24H PO SCH (08:02)
[2016-04-22] MEDS: URSODIOL 300 MG CAP PO SCH ×2 (08:03→20:20)
[2016-04-22] MEDS: SERTRALINE 50 MG TAB PO SCH (08:03)
[2016-04-22] MEDS: HYDROCORTISONE 10 MG TAB PO SCH ×2 (08:04→20:21)
[2016-04-22] MEDS: HYDROcodone/APAP 10-325MG 1 EACH TAB PO SCH ×4 (08:06→21:48)
[2016-04-22] MEDS: clonazePAM 0.5 MG TAB PO SCH ×2 (08:06→20:19)
[2016-04-22] MEDS: METHADONE 5 MG TAB PO SCH ×2 (08:06→20:19)
[2016-04-22 09:30] LABS: INR 3.8 (<1.1); Prothrombin Time 36.9 sec (9.0-12.0)
[2016-04-22 13:33] LABS: CH 28.5; CHCM 29.4; Hypochromasia Marked; Large Platelets Flag Marked
[2016-04-22 13:40] LABS: Anion Gap 13 mmol/L; Blood Urea Nitrogen 13 mg/dL (9-20); Calcium 8.4 mg/dL (8.4-10.2); Carbon Dioxide 26 mmol/L (22-30); Chloride 101 mmol/L (98-107); Glucose 100 mg/dL (74-99); Non-African American GFR(MDRD) >60 (>60 ml/min/1.73 sqM); Potassium 4.5 mmol/L (3.5-5.1); Sodium 140 mmol/L (137-145)
[2016-04-22 13:41] LABS: Basophils % (A) 0 %; Eosinophils # (A) 0.3 k/uL (0-0.7); Eosinophils % (A) 2 %; HCT 39.2 % (39.0-53.0); HDW 2.94; HGB 11.7 gm/dL (13.0-17.5); Luc # (Auto) 0.56; Luc % (Auto) 4; Lymphocytes # (A) 2.4 k/uL (1.0-4.8); Lymphocytes % (A) 17 %; MCH 29.1 pg (25.0-35.0); MCHC 29.9 g/dL (31.0-37.0); MCV 97.4 fL (80.0-100.0); Mean Platelet Volume 15.6; Monocytes # (A) 1.2 k/uL (0-1.0); Monocytes % (A) 9 %; Neutrophils # (A) 9.1 k/uL (1.3-7.7); Neutrophils % (A) 67 %; RBC 4.03 m/uL (4.30-5.90); RDW 15.6 % (11.5-15.5); WBC 13.7 k/uL (3.8-10.6); WBC (Perox) 16.24
[2016-04-22 14:03] LABS: Large Platelets Present; Manual Review Performed
[2016-04-22 14:04] LABS: Howell-Jolly Bodies Present; Target Cells Present
[2016-04-23] MEDS: HYDROmorphone 1 MG/ML 1 ML SYRINGE IVP PRN ×12 (01:12→23:46)
[2016-04-23] MEDS: SODIUM CHLORIDE 0.9% 1,000 ML IV SCH ×2 (01:17→11:48)
[2016-04-23] MEDS: TACROLIMUS 1 MG CAP PO SCH ×2 (07:00→20:03)
[2016-04-23] MEDS: PANTOPRAZOLE 40 MG TABLET PO SCH (07:00)
[2016-04-23] MEDS: clonazePAM 0.5 MG TAB PO SCH ×2 (09:12→20:01)
[2016-04-23] MEDS: HYDROcodone/APAP 10-325MG 1 EACH TAB PO SCH ×3 (09:13→16:58)
[2016-04-23] MEDS: SERTRALINE 100 MG TAB PO SCH (09:13)
[2016-04-23] MEDS: SERTRALINE 50 MG TAB PO SCH (09:13)
[2016-04-23] MEDS: METOPROLOL TARTRATE 50 MG TAB PO SCH ×2 (09:13→20:13)
[2016-04-23] MEDS: MAGNESIUM OXIDE 400 MG TAB PO SCH ×2 (09:13→20:02)
[2016-04-23] MEDS: CLOPIDOGREL 75 MG TAB PO SCH (09:13)
[2016-04-23] MEDS: METHADONE 5 MG TAB PO SCH ×2 (09:13→20:13)
[2016-04-23] MEDS: METOCLOPRAMIDE 10 MG TAB PO SCH ×2 (09:14→20:03)
[2016-04-23] MEDS: LIPASE 5,000/PROTEASE 17,000/AMYLASE 27,0000 PO SCH ×2 (09:14→20:02)
[2016-04-23] MEDS: TAMSULOSIN 0.4 MG CAP.ER.24H PO SCH (09:14)
[2016-04-23] MEDS: HYDROCORTISONE 10 MG TAB PO SCH ×2 (09:14→20:01)
[2016-04-23] MEDS: URSODIOL 300 MG CAP PO SCH ×2 (09:15→20:03)
[2016-04-23] MEDS: SULFAMETHOX-TMP 400-80MG 1 EACH TAB PO SCH (16:00)
[2016-04-23] MEDS: ONDANSETRON 4 MG/2 ML VIAL IVP PRN (20:14)
[2016-04-23] MEDS: TEMAZEPAM 15 MG CAP PO PRN (23:46)
[2016-04-24] MEDS: HYDROcodone/APAP 10-325MG 1 EACH TAB PO SCH ×4 (02:12→19:30)
[2016-04-24] MEDS: DOCUSATE 100 MG CAP PO SCH ×3 (03:39→21:29)
[2016-04-24] MEDS: SODIUM CHLORIDE 0.9% 1,000 ML IV SCH ×3 (03:39→16:39)
[2016-04-24] MEDS: HYDROmorphone 1 MG/ML 1 ML SYRINGE IVP PRN ×7 (03:42→22:21)
[2016-04-24] MEDS: ONDANSETRON 4 MG/2 ML VIAL IVP PRN (03:43)
[2016-04-24 06:39] LABS: INR 2.6 (<1.1); Prothrombin Time 25.2 sec (9.0-12.0)
[2016-04-24 06:44] LABS: Anion Gap 15 mmol/L; Blood Urea Nitrogen 13 mg/dL (9-20); Calcium 9.1 mg/dL (8.4-10.2); Carbon Dioxide 23 mmol/L (22-30); Chloride 101 mmol/L (98-107); Glucose 88 mg/dL (74-99); Non-African American GFR(MDRD) >60 (>60 ml/min/1.73 sqM); Potassium 4.6 mmol/L (3.5-5.1); Sodium 139 mmol/L (137-145)
[2016-04-24 06:47] LABS: Amylase 409 U/L (30-110)
[2016-04-24 07:49] LABS: Aty Lym Flag Slight; CH 28.3; CHCM 29.4; HCT 43.3 % (39.0-53.0); HDW 2.88; HGB 13.2 gm/dL (13.0-17.5); Hypochromasia Marked; Large Platelets Flag Marked; MCH 29.3 pg (25.0-35.0); MCHC 30.4 g/dL (31.0-37.0); MCV 96.5 fL (80.0-100.0); Mean Platelet Volume 18.3; RBC 4.49 m/uL (4.30-5.90); RDW 15.4 % (11.5-15.5); WBC 13.7 k/uL (3.8-10.6); WBC (Perox) 15.55
[2016-04-24] MEDS: clonazePAM 0.5 MG TAB PO SCH ×2 (08:42→21:36)
[2016-04-24] MEDS: METHADONE 5 MG TAB PO SCH ×2 (08:42→19:30)
[2016-04-24] MEDS: PANTOPRAZOLE 40 MG TABLET PO SCH (08:43)
[2016-04-24] MEDS: TACROLIMUS 1 MG CAP PO SCH ×2 (08:43→21:28)
[2016-04-24] MEDS: CLOPIDOGREL 75 MG TAB PO SCH (08:44)
[2016-04-24] MEDS: LIPASE 5,000/PROTEASE 17,000/AMYLASE 27,0000 PO SCH ×2 (08:44→21:29)
[2016-04-24] MEDS: MAGNESIUM OXIDE 400 MG TAB PO SCH ×2 (08:44→21:29)
[2016-04-24] MEDS: TAMSULOSIN 0.4 MG CAP.ER.24H PO SCH (08:45)
[2016-04-24] MEDS: METOPROLOL TARTRATE 50 MG TAB PO SCH ×2 (08:45→21:28)
[2016-04-24] MEDS: URSODIOL 300 MG CAP PO SCH ×2 (08:45→21:29)
[2016-04-24] MEDS: SERTRALINE 100 MG TAB PO SCH (08:45)
[2016-04-24] MEDS: SERTRALINE 50 MG TAB PO SCH (08:45)
[2016-04-24] MEDS: HYDROCORTISONE 10 MG TAB PO SCH ×2 (08:46→21:29)
[2016-04-24] MEDS: METOCLOPRAMIDE 10 MG TAB PO SCH ×2 (08:46→21:29)
[2016-04-24] MEDS ORDERED: POLYETHYLENE GLYCOL 3350 17 GM POWD.PACK PO PRN (09:00)
[2016-04-24 10:28] LABS: Add Differential Manual Differential
[2016-04-24 10:31] LABS: Howell-Jolly Bodies Present; Nucleated Red Blood Cells 0 /100 WBC (0-0); Target Cells Present; Total Cells Counted 100
--- NOTE | 2016-04-24 11:28 | P.CONS ---
History of Present Illness - Reason for Consult Consult date: 04/24/16 pancreatitis Requesting physician: Alycia Worley - History of Present Illness 46-year-old gentleman history of Dr. Zhao with a past medical history of multivisceral transplantation; stomach, duodenum/small bowel, and pancreas secondary to intestinal severe obstruction in 2002 at [facility], recurrent pancreatitis, remote EtOH abuse with current dependency, cholecystectomy, atrial fibrillation with Coumadin monitoring, mesentery vein graft thrombosis, gastroparesis, COPD, and GERD. Admitted week ago with abdominal pain secondary to pancreatitis. Patient had a previous episode of pancreatitis early March. He drinks on a daily basis 2-3 glasses of vodka tonic. Consultation requested for pancreatitis. Admission lipase 1609 currently 1439. Admission amylase 298 currently 409. Patient states his diet was advanced today but due to increased nausea and abdominal discomfort his diet was decreased. Currently he is resting comfortably with minimal abdominal discomfort. He has been afebrile. White count 13.7 unchanged from 2 days ago. Hemoglobin 13.2. Platelet 104. INR 2.6. CMP 04/18/[address] abdomen and pelvis 04/18/2016 reported no bowel obstruction. Postsurgical changes. No mentioning of pancreatic masses or necrosis. 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 History of Any Multi-Drug Resistant Organisms: MRSA Year Discovered:: 2002 MDRO Source:: unsure where when had organ transplant Additional Past Surgical History / Comment(s): STATES MULTIPLE STOMACH SX, 2002 HAD 4 ORGAN TRANSPLANT: SMALL BOWEL, PANCREAS, duodenum, AND STOMACH performed at the [facility], knee surgical repair after injury on a barbed wire fence, as he had heart surgery for closed valves, EGDs and colonoscopies with last EGD 08/08/15. Past Anesthesia/Blood Transfusion Reactions: No Reported Reaction Additional Past Anesthesia/Blood Transfusion Reaction / Comm: STATES R/T TO MULTIPLE SX HE REQUIRES A LOT OF MEDICATION for anesthesia. He has had multiple blood transfusions without reaction. Past Psychological History: Anxiety, Depression Additional Psychological History / Comment(s): Pt resides with his significant other. He is independent. He drives. Smoking Status: Former smoker Past Alcohol Use History: Occasional Additional Past Alcohol Use History / Comment(s): Started smoking about 1981 and quit in 2011 Past Drug Use History: None Reported - Past Family History Mother History Unknown: Yes Additional Family Medical History / Comment(s): pt is adopted, does not know any hx Father History Unknown: Yes Additional Family Medical History / Comment(s): pt is adopted, does not know any hx Medications and Allergies Home Medications Medication Instructions Recorded Confirmed Type Calcium Citrate/Vitamin D3 1 tab PO BID 09/02/13 04/18/16 History [Calcium Citrate - Vit D3 Tab] Clopidogrel [Plavix] 75 mg PO QAM 09/02/13 04/18/16 History Ferrous Gluconate 325 mg PO BID 09/02/13 04/18/16 History Magnesium Gluconate [Magonate] 500 mg PO BID 09/02/13 04/18/16 History Methadone [Dolophine] 5 mg PO BID 09/02/13 04/18/16 History Metoprolol Tartrate [Lopressor] 50 mg PO BID 09/02/13 04/18/16 History Multivitamin [Men's Multi-Vitamin] 1 tab PO QAM 09/02/13 04/18/16 History Omeprazole [PriLOSEC] 40 mg PO AC-BID 09/02/13 04/18/16 History Sertraline [Zoloft] 100 mg PO QAM 09/02/13 04/18/16 History Sulfamethox-Tmp 800-160Mg [Bactrim 0.5 tab PO MOWEFR 09/02/13 04/18/16 History DS 800-160 mg] Tacrolimus [Prograf] 1 mg PO HS 09/02/13 04/18/16 History Tacrolimus [Prograf] 2 mg PO AC-BRKFST 09/02/13 04/18/16 History Tamsulosin HCl [Flomax] 0.4 mg PO QAM 09/02/13 04/18/16 History Ursodiol [Actigall] 300 mg PO BID 09/02/13 04/18/16 History clonazePAM [KlonoPIN] 0.5 mg PO BID 09/02/13 04/18/16 History Albuterol Sulfate [Proair 2 puff PO RT-Q4H PRN 09/22/15 04/18/16 History Respiclick] Cholecalciferol (Vitamin D3) 10,000 unit PO QAM 09/22/15 04/18/16 History [Vitamin D3] Hydrocodone/Acetaminophen 1 tab PO QID 09/22/15 04/18/16 History [Hydrocodon-Acetaminophn 10-325] Hydrocortisone 15 mg PO BID 09/22/15 04/18/16 History Tyfukv-Tpefbbgs-Dzleonc [Zenpep 10] 1 cap PO BID 09/22/15 04/18/16 History Metoclopramide [Reglan] 10 mg PO BID 09/22/15 04/18/16 History Naloxegol Oxalate [Movantik] 25 mg PO HS 09/22/15 04/18/16 History Sertraline [Zoloft] 50 mg PO QAM 09/22/15 04/18/16 History Warfarin Sodium 3 mg PO HS 09/22/15 04/18/16 History Allergies Allergy/AdvReac Type Severity Reaction Status Date / Time ketorolac tromethamine AdvReac migraines Verified 04/18/16 11:50 [From Toradol] morphine AdvReac Itching Verified 04/18/16 11:50 Physical Exam Vitals: Vital Signs Temp Pulse Pulse Resp BP Pulse Ox 04/24/16 08:00 98.7 F 82 20 133/69 92 L 04/24/16 04:00 97.8 F 72 72 16 117/69 90 L 04/24/16 00:00 99.2 F 82 18 127/61 91 L 04/23/16 20:00 98.2 F 120 H 24 126/77 94 L 04/23/16 16:00 17 04/23/16 15:59 98.8 F 79 17 140/75 95 04/23/16 11:33 70 16 134/66 94 L Intake and Output 04/23/16 04/24/16 04/24/16 22:59 06:59 14:59 Intake Total 160 1000 600 Output Total 700 275 Balance -540 1000 325 Intake: IV 100 300 Sodium Chloride 0.9% 1, 100 300 000 ml @ 100 mls/hr IV . Q10H [facility] Rx#:[id number] Intake, IV Titration 700 Amount Sodium Chloride 0.9% 1, 700 000 ml @ 100 mls/hr IV . Q10H [facility] Rx#:[id number] Oral 60 600 Output: Urine 700 275 Other: Voiding Method Urinal Urinal Urinal # Voids 1 1 Weight 96.1 kg Patient Weight 04/25/16 06:59 Weight 96.1 kg General appearance: The patient is alert, oriented, in no acute distress. HET: Head is normocephalic and atraumatic. Pupils are equal and reactive. Oropharynx is clear without lesions. Neck: Supple without lymphadenopathy. Trachea midline. Heart: S1 S2. Regular rate and rhythm. Lungs: No crackles or wheezes are heard. Abdomen: Soft, multiple scars defects, tenderness midepigastrium left upper quadrant, nondistended with bowel sounds. No peritoneal signs. No palpable organomegaly or masses. Extremities: Normal skin color and turgor. No cyanosis, rash, ulceration, clubbing, or edema. Radial and pedal pulses are 2/4 bilaterally. Neurological: No focal deficits. Strength and sensation are grossly intact. Results CBC & Chem 7: 04/25/16 06:39 04/24/16 06:02 Labs: Abnormal Lab Results - Last 24 Hours (Table) 04/24/16 04/24/16 04/24/16 Range/Units 06:02 06:02 06:02 WBC 13.7 H (3.8-10.6) k/uL MCHC 30.4 L (31.0-37.0) g/dL Plt Count 104 L (150-450) k/uL Neutrophils # (Manual) 10.4 H (1.3-7.7) k/uL PT 25.2 H (9.0-12.0) sec Amylase 409 H* (30-110) U/L Lipase 1439 H (23-300) U/L CT scan - abdomen: report reviewed CT scan - pelvis: report reviewed (Reviewed by Dr. Worley) Assessment and Plan (1) Pancreatitis Status: Acute (2) ETOH abuse Status: Chronic (3) History of organ transplantation Status: Acute (4) Pancreatitis of transplanted pancreas Status: Acute (5) Paroxysmal atrial fibrillation Status: Acute (6) Coagulopathy Status: Chronic (7) EtOH dependence Status: Acute Plan: 1. Supportive measures. 2. Alcohol abstinence is strongly advised. 3. Continue to monitor chemistries. We'll follow with you. Thank you for this kind referral and the opportunity to participate in the care of your patient. This consultation was discussed with Dr. Worley. The impression and plan of care have been directed as dictated.
--- NOTE | 2016-04-24 12:00 | PN ---
DATE OF SERVICE: 04/22/2016 INTERVAL HISTORY: Mr. Dubon is a 46-year-old male admitted to the hospital with acute pancreatitis with elevated amylase and lipase levels. The patient does have a history of pancreatitis and pancreatic transplant. The patient is otherwise still complaining of abdominal pain, 7/10. He did tolerate a liquid diet and it will be advanced. Plan is for discharge in the next 24 hours if more clinical improvement. Otherwise the patient denies any fevers or chills. No nausea or vomiting. White count was slightly elevated at 13.7 today. No fevers, no chills noted. No worsening abdominal pain. REVIEW OF SYSTEMS: CONSTITUTIONAL: None. RESPIRATORY: No cough or sputum production. CARDIOVASCULAR: No chest pain. ABDOMEN: No nausea. The patient does have abdominal pain. Denied any constipation. No vomiting. GENITOURINARY: No dysuria or hematuria. ENDOCRINE: Negative. PSYCHIATRIC: Negative. SKIN: Negative. MUSCULOSKELETAL: Negative. All other fourteen-point review of systems negative except as above. CURRENT MEDICATIONS: Reviewed. PHYSICAL EXAMINATION: A 46-year-old male lying in bed comfortably, awake, alert, oriented x3. The patient is in no apparent distress. VITALS: Blood pressure is 127/80, pulse is 86, respirations 16, temperature afebrile, pulse ox 92% on room air. HEENT: Atraumatic, normocephalic. NECK: Supple. No JVD. CVS: S1, S2, no rub or gallop. LUNGS: Bilateral air entry is present. No wheezing. ABDOMEN: Soft. Epigastric tenderness. No guarding or rigidity. Bowel sounds are present. DIRECTOR OF EVENT MANAGEMENT: Awake, alert oriented x3. No focal deficit. Cranial nerves grossly intact. EXTREMITIES: No edema. Pulses palpable bilaterally. No clubbing or cyanosis. PSYCHIATRIC: Cooperative. LABORATORY DATA: WBC 13.7, hemoglobin 11.7, platelets 103, sodium 140, potassium 4.5, chloride 101, bicarb is 26. BUN 13, creatinine 0.87. Calcium 8.4. IMPRESSION: 1. Acute on chronic pancreatitis, improved abdominal pain. Start on liquid diet and advance as tolerated. 2. History of 4 organ transplant. 3. History of mesenteric artery thrombus. 4. Chronic atrial fibrillation, on anticoagulation with Coumadin, and also rate controlled with beta blockers. 5. Chronic pain syndrome, on methadone at home. 6. Chronic obstructive pulmonary disease. 7. Gastroesophageal reflux disease. 8. History of methicillin-resistant Staphylococcus aureus. 9. Chronic renal insufficiency. 10. Chronic anemia. 11. Coumadin coagulopathy on admission. 12. Anemia of chronic disease. 13. Gastroparesis. 14. History of smoking. DISCUSSION AND PLAN: A 46-year-old male admitted to the hospital with acute on chronic pancreatitis. Abdominal pain improving. Continue IV fluids. Continue pain medications. Liquid diet, advance as tolerated. Further recommendations based on progress. We will follow up on amylase and lipase levels tomorrow.
--- NOTE | 2016-04-24 12:00 | PN ---
DATE OF SERVICE: 04/23/2016 INTERVAL HISTORY: Mr. Dubon is a 46-year-old male with known history of pancreatitis, was admitted to the hospital with worsening abdominal pain and elevated lipase level and amylase level. Patient does have a history of four organ transplant including pancreas, stomach, duodenum and small intestine at [facility]. Patient is otherwise still complaining of abdominal pain of 7/10, slightly tolerating liquid diet but is still having abdominal pain, no fever, no chills. No acute overnight issues. REVIEW OF SYSTEMS: CONSTITUTIONAL: No fever or chills. RESPIRATORY: No cough or sputum production. CARDIOVASCULAR: No chest pain or short of breath. ABDOMEN: No nausea, no vomiting. Patient does have abdominal, no diarrhea, no constipation. GENITOURINARY: Negative. ENDOCRINE: Negative. PSYCHIATRY: Negative. SKIN: Negative. MUSCULOSKELETAL: Negative. All other 14-point review of systems negative except as above. Current medications include Ventress 10, Ventolin, Zenpep, Klonopin, Plavix, Colace, Cortef, Dilaudid, magnesium oxide, methadone, metoclopramide, metoprolol, Narcan, Zofran, Protonix, MiraLax, Zoloft, ( ), tacrolimus, Flomax, Restoril, Bactrim DS, and ursodiol. PHYSICAL EXAM: This is a 46-year-old male lying in bed comfortably; awake, alert, oriented x3, appears to be in no apparent distress. VITALS: Blood pressure is 133/60, pulse is 75, respiratory rate is 16, afebrile, pulse ox 93% on room air. Laboratory data reviewed. HEENT: Atraumatic, normocephalic. Neck is supple. No JVD. CVS EXAM: S1, S2 heard. No murmurs, no gallop, no rub. LUNGS: Bilateral air entry is present. No wheezing noted. ABDOMEN: Soft, no severe tenderness. No guarding or rigidity. Bowel sounds are present. GREEN TIRE INSPECTOR: Awake, alert, oriented, x3. No focal neurologic deficits. Cranial nerves grossly intact. EXTREMITIES: No edema. Pulses palpable bilaterally. No clubbing or cyanosis. PSYCHIATRIC: Cooperative. LABORATORY DATA: Reviewed. IMPRESSION: 1. Acute on chronic pancreatitis, still have abdominal pain, tolerating liquid diet slowly. 2. History of four organ transplant as discussed above. 3. 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 4. Chronic atrial fibrillation, on anticoagulation with Coumadin and rate controlled with beta lali. 5. Chronic pain syndrome on methadone. 6. Chronic obstructive pulmonary disease. 7. Gastroesophageal reflux disease. 8. Methicillin-resistant Staphylococcus aureus. 9. Chronic adrenal insufficiency. 10. Chronic anemia, chronic disease, which is Coumadin coagulopathy on admission. 11. Anemia of chronic disease. 12. Gastroparesis. 13. History of smoking. DISCUSSION AND PLAN: Patient will be continued on pain management with Dilaudid, continue with IV fluids. Continue with the current management and advance diet as tolerated. Will follow up clinically. Further recommendation based on present illness. Will repeat labs in the morning.
--- NOTE | 2016-04-24 12:16 | PN ---
DATE OF SERVICE: 04/21/2016 Mr. Dubon is a 46-year-old male with known history of pancreatitis and pancreatic transplant admitted to the hospital with epigastric abdominal pain and unable to tolerate p.o. Patient was found to have elevated lipase and amylase, which are trending down at this time. Otherwise patient was started on clear liquids and otherwise the patient is still complaining of abdominal pain. Patient was found to have atrial fibrillation on admission with rapid ventricular rate. Off Cardizem, started back on home dose of Metoprolol. Otherwise the patient denied any complaints of fever or chills. No acute overnight issues. Pain is at 8/10. REVIEW OF SYSTEMS: CONSTITUTIONAL: No fever. No chills. RESPIRATORY: No cough or sputum production. CARDIOVASCULAR: No chest pain or short of breath. ABDOMEN: Patient does have nausea, no vomiting. Patient does have abdominal pain. No diarrhea. GENITOURINARY: Negative. ENDOCRINE: Negative. PSYCHIATRIC: Negative. SKIN: Negative. All other review of systems negative except as above. VITALS: Blood pressure 138/74, pulse is 114, respirations 16, temperature afebrile, pulse ox 93% on room air. HEENT: Atraumatic, normocephalic. Neck is supple. No JVD. CVS: S1, S2 heard. No murmurs, no gallop. LUNGS: Bilateral air entry is present. No wheezing. No crackles. Nonlabored breathing. ABDOMEN: Soft. Epigastric tenderness. Bowel sounds are present. No palpable organomegaly. FLOOR SANDER: Awake, alert, oriented x3. No focal neurological deficits. EXTREMITIES: No edema. Pulses palpable bilaterally. No clubbing or cyanosis. PSYCHIATRIC: Cooperative. Nonsuicidal. SKIN: No rash or skin lesions. LABORATORY DATA: Reviewed. IMPRESSION: 1. Acute on chronic pancreatitis. Patient is still having abdominal pain and currently tolerating liquid diet and lipase and amylase are trending down. 2. History of four organ transplant as discussed above. 3. History of mesenteric artery thrombus and currently on Coumadin for that. 4. Chronic atrial fibrillation, currently rate controlled. Continue with the anticoagulation and metoprolol. 5. Chronic pain syndrome on methadone at home. 6. Chronic obstructive pulmonary disease. 7. Gastroesophageal reflux disease. 8. History of methicillin-resistant Staphylococcus aureus. 9. Chronic adrenal insufficiency. 10. Chronic anemia. 11. Coumadin coagulopathy on admission. 12. Anemia of chronic disease. 13. Gastroparesis. 14. History of smoking. DISCUSSION AND PLAN: A 46-year-old male admitted to the hospital and found to have elevated lipase and amylase. Now trending down. Continue with the pain management and liquid diet. Advanced as tolerated and follow up closely. Continue with the Coumadin monitoring.
[2016-04-24] MEDS: TEMAZEPAM 15 MG CAP PO PRN (21:36)
[2016-04-24] MEDS: WARFARIN 3 MG TAB PO SCH (22:21)
[2016-04-25] MEDS: HYDROmorphone 1 MG/ML 1 ML SYRINGE IVP PRN ×7 (01:41→23:10)
[2016-04-25] MEDS: SODIUM CHLORIDE 0.9% 1,000 ML IV SCH ×2 (01:42→07:52)
[2016-04-25] MEDS: HYDROcodone/APAP 10-325MG 1 EACH TAB PO SCH ×5 (01:47→21:00)
[2016-04-25 06:51] LABS: Basophils % (A) 0 %; CH 28.5; CHCM 30.2; Eosinophils # (A) 0.4 k/uL (0-0.7); Eosinophils % (A) 3 %; HCT 41.8 % (39.0-53.0); HGB 12.8 gm/dL (13.0-17.5); Hypochromasia Marked; Large Platelets Flag Marked; Luc # (Auto) 0.48; Luc % (Auto) 4; Lymphocytes % (A) 22 %; MCH 28.9 pg (25.0-35.0); MCHC 30.5 g/dL (31.0-37.0); MCV 94.6 fL (80.0-100.0); Mean Platelet Volume 17.8; Monocytes # (A) 1.1 k/uL (0-1.0); Monocytes % (A) 8 %; Neutrophils # (A) 8.5 k/uL (1.3-7.7); Neutrophils % (A) 63 %; RBC 4.42 m/uL (4.30-5.90); RDW 15.6 % (11.5-15.5); WBC 13.4 k/uL (3.8-10.6); WBC (Perox) 16.12
[2016-04-25 07:03] LABS: INR 2.8 (<1.1); Prothrombin Time 27.5 sec (9.0-12.0)
[2016-04-25 07:31] LABS: Amylase 302 U/L (30-110)
[2016-04-25] MEDS: DOCUSATE 100 MG CAP PO SCH ×2 (07:53→21:02)
[2016-04-25] MEDS: MAGNESIUM OXIDE 400 MG TAB PO SCH ×2 (07:53→21:02)
[2016-04-25] MEDS: CLOPIDOGREL 75 MG TAB PO SCH (07:53)
[2016-04-25] MEDS: PANTOPRAZOLE 40 MG TABLET PO SCH (07:53)
[2016-04-25] MEDS: LIPASE 5,000/PROTEASE 17,000/AMYLASE 27,0000 PO SCH ×2 (07:54→21:01)
[2016-04-25] MEDS: URSODIOL 300 MG CAP PO SCH ×2 (07:54→21:01)
[2016-04-25] MEDS: TAMSULOSIN 0.4 MG CAP.ER.24H PO SCH (07:55)
[2016-04-25] MEDS: SERTRALINE 100 MG TAB PO SCH (07:55)
[2016-04-25] MEDS: METOPROLOL TARTRATE 50 MG TAB PO SCH ×2 (07:55→21:01)
[2016-04-25] MEDS: SERTRALINE 50 MG TAB PO SCH (07:55)
[2016-04-25] MEDS: TACROLIMUS 1 MG CAP PO SCH ×2 (07:56→21:02)
[2016-04-25] MEDS: METOCLOPRAMIDE 10 MG TAB PO SCH ×2 (07:56→21:01)
[2016-04-25] MEDS: HYDROCORTISONE 10 MG TAB PO SCH ×2 (07:57→21:02)
[2016-04-25] MEDS: METHADONE 5 MG TAB PO SCH ×2 (08:03→20:59)
[2016-04-25] MEDS: clonazePAM 0.5 MG TAB PO SCH ×2 (08:03→21:00)
--- NOTE | 2016-04-25 09:31 | P.PN ---
Subjective Principal diagnosis: Pancreatitis 46-year-old male with a history of multivisceral organ/periodic transplantation admitted with recurrent pancreatitis with underlying EtOH dependency. Afebrile. White count 13.4. Pancreatic enzymes slightly improved today. Objective - Vital Signs Vital signs: Vital Signs Temp 98.2 F 04/25/16 04:00 Pulse 65 04/25/16 04:00 Resp 17 04/25/16 04:00 BP 126/67 04/25/16 04:00 Pulse Ox 92 L 04/25/16 04:00 Intake & Output 04/24/16 04/25/16 04/25/16 18:59 06:59 18:59 Intake Total 700 200 Output Total 1075 750 900 Balance -375 -550 -900 Weight 96.1 kg 96.1 kg Intake: IV 200 Sodium Chloride 0.9% 1, 200 000 ml @ 100 mls/hr IV . Q10H [facility] Rx#:[id number] Oral 700 Output: Urine 1075 750 900 Other: Voiding Method Urinal Urinal # Voids 1 # Bowel Movements 0 - Exam General appearance: The patient is alert, oriented, in no acute distress. HET: Head is normocephalic and atraumatic. Pupils are equal and reactive. Oropharynx is clear without lesions. Neck: Supple without lymphadenopathy. Trachea midline. Heart: S1 S2. Regular rate and rhythm. Lungs: No crackles or wheezes are heard. Abdomen: Soft, multiple scars defects, tenderness midepigastrium left upper quadrant, nondistended with bowel sounds. No peritoneal signs. No palpable organomegaly or masses. Extremities: Normal skin color and turgor. No cyanosis, rash, ulceration, clubbing, or edema. Radial and pedal pulses are 2/4 bilaterally. Neurological: No focal deficits. Strength and sensation are grossly intact. - Labs CBC & Chem 7: 04/25/16 06:39 04/24/16 06:02 Labs: Abnormal Lab Results - Last 24 Hours (Table) 04/24/16 04/25/16 04/25/16 Range/Units 06:02 06:39 06:39 WBC 13.7 H 13.4 H (3.8-10.6) k/uL Hgb 12.8 L (13.0-17.5) gm/dL MCHC 30.4 L 30.5 L (31.0-37.0) g/dL RDW 15.6 H (11.5-15.5) % Plt Count 104 L 115 L (150-450) k/uL Neutrophils # 8.5 H (1.3-7.7) k/uL Neutrophils # (Manual) 10.4 H (1.3-7.7) k/uL Monocytes # 1.1 H (0-1.0) k/uL PT (9.0-12.0) sec Amylase 302 H* (30-110) U/L Lipase 1295 H (23-300) U/L 04/25/16 Range/Units 06:39 WBC (3.8-10.6) k/uL Hgb (13.0-17.5) gm/dL MCHC (31.0-37.0) g/dL RDW (11.5-15.5) % Plt Count (150-450) k/uL Neutrophils # (1.3-7.7) k/uL Neutrophils # (Manual) (1.3-7.7) k/uL Monocytes # (0-1.0) k/uL PT 27.5 H (9.0-12.0) sec Amylase (30-110) U/L Lipase (23-300) U/L Assessment and Plan (1) Pancreatitis Status: Acute (2) ETOH abuse Status: Chronic (3) History of organ transplantation Status: Acute (4) Pancreatitis of transplanted pancreas Status: Acute (5) Paroxysmal atrial fibrillation Status: Acute (6) Coagulopathy Status: Chronic (7) EtOH dependence Status: Acute Plan: 1. Supportive measures. 2. Diet as tolerated. Consider PPN/TPN if patient is not able to advance diet. 3. Continue to monitor chemistries. We'll follow with you.
--- NOTE | 2016-04-25 11:29 | P.PN ---
Subjective Principal diagnosis: Abdominal pain 46-year-old gentleman with multiorgan transplant secondary to some defect in 2002' admitted to the hospital with abdominal pain secondary to acute pancreatitis due to alcohol intake. Patient has not been able to tolerate diet. States that his pain at rest is tolerable and he is able to tolerate ice chips at this time. Denies having any chest pain, difficulty breathing, any bloody diarrhea or hematemesis. Objective - Vital Signs Vital signs: Vital Signs Temp 97.1 F L 04/25/16 08:00 Pulse 113 H 04/25/16 08:00 Resp 18 04/25/16 08:00 BP 124/83 04/25/16 08:00 Pulse Ox 93 L 04/25/16 08:00 Intake & Output 04/24/16 04/25/16 04/25/16 18:59 06:59 18:59 Intake Total 700 200 Output Total 1075 750 900 Balance -375 -550 -900 Weight 96.1 kg 96.1 kg Intake: IV 200 Sodium Chloride 0.9% 1, 200 000 ml @ 100 mls/hr IV . Q10H [facility] Rx#:[id number] Oral 700 Output: Urine 1075 750 900 Other: Voiding Method Urinal Urinal Urinal # Voids 1 # Bowel Movements 0 - Exam Gen Appearance alert oriented 3 in no distress Lungs currently clear to auscultation Abdomen is soft multiple previous surgical scars noted. Nontender to palpation. Neurologically no focal motor or sensory deficit patient Heart regular rate and rhythm no murmurs appreciated - Labs CBC & Chem 7: 04/25/16 06:39 04/24/16 06:02 Labs: Abnormal Lab Results - Last 24 Hours (Table) 04/25/16 04/25/16 04/25/16 Range/Units 06:39 06:39 06:39 WBC 13.4 H (3.8-10.6) k/uL Hgb 12.8 L (13.0-17.5) gm/dL MCHC 30.5 L (31.0-37.0) g/dL RDW 15.6 H (11.5-15.5) % Plt Count 115 L (150-450) k/uL Neutrophils # 8.5 H (1.3-7.7) k/uL Monocytes # 1.1 H (0-1.0) k/uL PT 27.5 H (9.0-12.0) sec Amylase 302 H* (30-110) U/L Lipase 1295 H (23-300) U/L Assessment and Plan Plan: #1 acute pancreatitis secondary to alcohol intake #2 chronic atrial fibrillation that is rate controlled #3 history of mesenteric artery thrombosis #4 COPD #5 chronic adrenal insufficiency #6 anemia of chronic disease #7 history of gastroparesis #8 history of multiorgan transplant #8 chronic tobacco use plan Continue ongoing care. We'll try clear liquid diet again today. Ideally, feeding tube set her postpyloric in location would be ideal, however with the patient's history of a complicated surgery would need to consider parenteral nutrition in the next 2 days if patient does not tolerate increase oral intake.
--- NOTE | 2016-04-25 11:34 | CDI ---
In responding to this query, please exercise your independent professional judgment. The [facility] Coding Staff and Clinical Documentation Specialists appreciate your assistance in clarifying documentation, maintaining compliance with coding guidelines, accurately documenting patients condition and capturing severity of illness. The fact that a question is asked does not imply that any particular answer is desired or expected. Communication forms are a method of clarifying documentation and are not made part of the Legal Health Record. Thank you in advance for your clarification. Last Revision, June 2015 Chrissy Rico [address] [facility] [place] [address] Documentation Clarification Form Date: 04/25/2016 10:56:00 AM From: Nicki Robledo CCS, CCDS Admit Date: 04/18/2016 3:26:00 PM Patient Name: Adrian Dubon Visit Number: [id number] Discharge Date: Dr. Singh Marcmu: Pancreatitis is documented in the ED note, the H&P, Cardiology and GI consults and progress notes as Patient history/risk factors: History of multivisceral transplantation in 2002 at [facility], History of chronic pancreatitis and history of alcohol dependence and abuse, patient drinks daily. Clinical Indicators: Presented with abdominal pain, vomiting, nausea and epigastric pain. Immunocompromised due to transplant. LAB: WBC 15.8, Amylase 298, Lipase 1609; Enzymes trended up. Radiology: KUB: cannot exclude 5mm left renal calculus, partial obstruction not excluded. Treatment: IV Dilaudid, IV Zofran, IV fluid, IV fluid bolus x2, IV Rocephin, IV Narcan, Albuteral INH Consults: Cardiology, Gastrointestinal n your professional opinion, can the acuity and the etiology of the pancreatitis be further specified as one of the following, if known? Acuity: Acute Acute on Chronic Chronic Reoccurring Other, please specify ____ Unable to determine Etiology: Alcohol induced Biliary Cytomegaloviral Drug induced Gallstone Idiopathic Other, please specify Unable to determine Please document in your progress notes and discharge summary in order to capture severity of illness and risk of mortality. Include clinical findings that support your diagnosis. FYI: Press F11 to launch patient chart Place X here if this finding has no clinical significance, is not applicable or if you are not able to provide any additional documentation. Thank you. CA
[2016-04-25] MEDS: SULFAMETHOX-TMP 400-80MG 1 EACH TAB PO SCH (11:47)
--- NOTE | 2016-04-25 11:54 | PN ---
DATE OF SERVICE: 04/24/2016 INTERVAL HISTORY: Mr. Dubon is a 46-year-old male who has a known history of pancreatitis, was admitted to the hospital with worsening abdominal pain and elevated amylase and lipase levels. The patient does have ongoing alcohol abuse. Otherwise, patient still complaining abdominal pain today 8 out of 10 and slightly elevated lipase and amylase level today. The patient will be kept n.p.o. and continue the pain medication and IV fluids. Otherwise, no fever, no chills. No acute overnight issues. Patient is able to ambulate in the hallway today. Gastroenterology is following this patient. REVIEW OF SYSTEMS: CONSTITUTIONAL: No fever. No chills. RESPIRATORY: No cough or sputum production. CARDIOVASCULAR: No chest pain or short of breath. ABDOMEN: Patient does have nausea. No vomiting. . Patient does have abdominal pain. No diarrhea. No constipation. GENITOURINARY: Negative. ENDOCRINE: Negative. PSYCHIATRIC: Negative. SKIN: Negative. All other 14-point review of systems negative except as above. Current medications include albuterol, [place] 10, Zenpep, Klonopin, Plavix, Colace, Cortef, Dilaudid, magnesium oxide, methadone, Reglan, Lopressor, Narcan, Zofran, Protonix, MiraLAX, Zoloft, Tacrolimus. Flomax, Bactrim ( ), Ursodiol and warfarin. PHYSICAL EXAMINATION: This is a 46-year-old male, lying on the bed, awake, alert, oriented x3. Appear to be in no apparent distress. VITALS: Blood pressure 140/75, pulse is 79, respirations 19, temperature afebrile, pulse ox 90% on room air. HEENT: Atraumatic, normocephalic. Neck is supple. No JVD. CVS: S1, S2 heard. No murmurs, no gallop. LUNGS: Bilateral air entry is present. No wheezing. No crackles. ABDOMEN: Soft. Epigastric tenderness. No guarding or rigidity. Bowel sounds are present. [employer]: Awake, alert, oriented x3. No focal neurological deficits. Cranial nerves grossly intact. EXTREMITIES: No edema. Pulses palpable bilaterally. No clubbing or cyanosis. PSYCHIATRIC: Cooperative. LABORATORY DATA: WBC 13.7, hemoglobin 13.2, platelets 104. INR 2.6. Sodium 139, potassium 4.6, chloride 101, bicarb is 23, BUN 13, creatinine 1.1. Amylase 409 and lipase 1439. IMPRESSION: 1. Acute on chronic pancreatitis with continued alcohol abuse, still having abdominal pain. Will place the patient n.p.o. except medications. Continue the IV fluids and pain management with IV Dilaudid. 2. History of four organ transplant, stomach, duodenum, pancreas ( ) [facility]. 3. 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 4. Chronic atrial fibrillation, on anticoagulation with Coumadin. Rate is controlled with beta blockers. 5. Chronic pain syndrome on methadone. 6. Chronic obstructive pulmonary disease. 7. Gastroesophageal reflux disease. 8. Methicillin-resistant Staphylococcus aureus history. 9. Chronic adrenal insufficiency. 10. Chronic anemia. 11. Coumadin coagulopathy on admission. 12. Anemia of chronic disease. 13. Gastroparesis. 14. History of smoking. DISCUSSION AND PLAN: The patient will be continued on pain management with Dilaudid. Will change 1 mg q.3 hours, continue the methadone. Continue the IV fluids. Will keep the patient n.p.o. except medications. Continue with current management. Gastroenterology is following this patient. Further recommendations based on clinical course. Patient was extensively counseled for alcohol abuse. I did discuss with his mother in detail at bedside.
[2016-04-25] MEDS ORDERED: WARFARIN 3 MG TAB PO SCH (18:00)
[2016-04-25] MEDS: WARFARIN 3 MG TAB PO SCH (18:44)
[2016-04-26] MEDS: HYDROmorphone 1 MG/ML 1 ML SYRINGE IVP PRN ×8 (02:06→23:32)
[2016-04-26] MEDS: SODIUM CHLORIDE 0.9% 1,000 ML IV SCH ×3 (05:26→23:27)
[2016-04-26] MEDS: TACROLIMUS 1 MG CAP PO SCH ×2 (06:31→21:25)
[2016-04-26] MEDS: PANTOPRAZOLE 40 MG TABLET PO SCH (06:31)
[2016-04-26 06:53] LABS: Basophils # (A) 0.1 k/uL (0-0.2); Basophils % (A) 0 %; CH 28.3; CHCM 29.9; Eosinophils # (A) 0.4 k/uL (0-0.7); Eosinophils % (A) 3 %; HCT 38.6 % (39.0-53.0); HDW 2.96; HGB 11.8 gm/dL (13.0-17.5); Hypochromasia Marked; Large Platelets Flag Marked; Luc # (Auto) 0.47; Luc % (Auto) 4; Lymphocytes # (A) 3.1 k/uL (1.0-4.8); Lymphocytes % (A) 25 %; MCH 29.1 pg (25.0-35.0); MCHC 30.6 g/dL (31.0-37.0); MCV 94.9 fL (80.0-100.0); Mean Platelet Volume 17.8; Monocytes # (A) 1.2 k/uL (0-1.0); Monocytes % (A) 9 %; Neutrophils % (A) 58 %; RBC 4.06 m/uL (4.30-5.90); RDW 15.5 % (11.5-15.5); WBC 12.2 k/uL (3.8-10.6); WBC (Perox) 15.32
[2016-04-26 06:59] LABS: ALT 31 U/L (21-72); AST 19 U/L (17-59); Alkaline Phosphatase 75 U/L (38-126); Anion Gap 13 mmol/L; Blood Urea Nitrogen 14 mg/dL (9-20); Calcium 8.7 mg/dL (8.4-10.2); Carbon Dioxide 27 mmol/L (22-30); Chloride 104 mmol/L (98-107); Glucose 88 mg/dL (74-99); Non-African American GFR(MDRD) >60 (>60 ml/min/1.73 sqM); Potassium 4.2 mmol/L (3.5-5.1); Sodium 144 mmol/L (137-145); Total Bilirubin 0.4 mg/dL (0.2-1.3); Total Protein 6.6 g/dL (6.3-8.2)
[2016-04-26 07:03] LABS: Large Platelets Present; Manual Review Performed
[2016-04-26 07:05] LABS: Target Cells Present
[2016-04-26 09:23] LABS: Prothrombin Time 50.8 sec (9.0-12.0)
[2016-04-26] MEDS: LIPASE 5,000/PROTEASE 17,000/AMYLASE 27,0000 PO SCH ×2 (10:03→21:25)
[2016-04-26] MEDS: MAGNESIUM OXIDE 400 MG TAB PO SCH ×2 (10:03→23:27)
[2016-04-26] MEDS: clonazePAM 0.5 MG TAB PO SCH ×2 (10:03→21:26)
[2016-04-26] MEDS: CLOPIDOGREL 75 MG TAB PO SCH (10:03)
[2016-04-26] MEDS: TAMSULOSIN 0.4 MG CAP.ER.24H PO SCH (10:04)
[2016-04-26] MEDS: SERTRALINE 100 MG TAB PO SCH (10:04)
[2016-04-26] MEDS: SERTRALINE 50 MG TAB PO SCH (10:04)
[2016-04-26] MEDS: URSODIOL 300 MG CAP PO SCH ×2 (10:04→21:25)
[2016-04-26] MEDS: METHADONE 5 MG TAB PO SCH ×2 (10:04→21:26)
[2016-04-26] MEDS: DOCUSATE 100 MG CAP PO SCH ×2 (10:04→23:26)
[2016-04-26] MEDS: METOCLOPRAMIDE 10 MG TAB PO SCH ×2 (10:05→21:26)
[2016-04-26] MEDS: HYDROcodone/APAP 10-325MG 1 EACH TAB PO SCH ×4 (10:05→21:27)
[2016-04-26] MEDS: METOPROLOL TARTRATE 50 MG TAB PO SCH ×2 (10:05→21:27)
[2016-04-26] MEDS: HYDROCORTISONE 10 MG TAB PO SCH ×2 (10:06→21:26)
[2016-04-26 10:41] LABS: INR 5.1 (<1.1)
--- NOTE | 2016-04-26 10:59 | P.PN ---
Subjective Principal diagnosis: Pancreatitis 46-year-old male with a history of multivisceral organ/periodic transplantation admitted with recurrent pancreatitis with underlying EtOH dependency. Afebrile. Pancreatic enzymes improved yesterday. Objective - Vital Signs Vital signs: Vital Signs Temp 97.5 F L 04/26/16 03:50 Pulse 70 04/26/16 03:50 Resp 18 04/26/16 03:50 BP 118/59 04/26/16 03:50 Pulse Ox 92 L 04/26/16 03:50 Intake & Output 04/25/16 04/26/16 04/26/16 18:59 06:59 18:59 Intake Total 20 800 Output Total 900 300 300 Balance -880 500 -300 Weight 96.1 kg Intake: IV 800 Sodium Chloride 0.9% 1, 800 000 ml @ 100 mls/hr IV . Q10H [facility] Rx#:[id number] Oral 20 Output: Urine 900 300 300 Other: Voiding Method Urinal # Voids 2 - Exam General appearance: The patient is alert, oriented, in no acute distress. HET: Head is normocephalic and atraumatic. Pupils are equal and reactive. Oropharynx is clear without lesions. Neck: Supple without lymphadenopathy. Trachea midline. Heart: S1 S2. Regular rate and rhythm. Lungs: No crackles or wheezes are heard. Abdomen: Soft, multiple scars defects, tenderness midepigastrium left upper quadrant, nondistended with bowel sounds. No peritoneal signs. No palpable organomegaly or masses. Extremities: Normal skin color and turgor. No cyanosis, rash, ulceration, clubbing, or edema. Radial and pedal pulses are 2/4 bilaterally. Neurological: No focal deficits. Strength and sensation are grossly intact. - Labs CBC & Chem 7: 04/26/16 06:12 04/26/16 06:12 Labs: Abnormal Lab Results - Last 24 Hours (Table) 04/26/16 04/26/16 04/26/16 Range/Units 06:12 06:12 06:12 WBC 12.2 H (3.8-10.6) k/uL RBC 4.06 L (4.30-5.90) m/uL Hgb 11.8 L (13.0-17.5) gm/dL Hct 38.6 L (39.0-53.0) % MCHC 30.6 L (31.0-37.0) g/dL Plt Count 121 L (150-450) k/uL Monocytes # 1.2 H (0-1.0) k/uL PT 50.8 H (9.0-12.0) sec INR 5.1 H* (<1.1) Albumin 3.3 L (3.5-5.0) g/dL Assessment and Plan (1) Pancreatitis Status: Acute (2) ETOH abuse Status: Chronic (3) History of organ transplantation Status: Acute (4) Pancreatitis of transplanted pancreas Status: Acute (5) Paroxysmal atrial fibrillation Status: Acute (6) Coagulopathy Status: Chronic (7) EtOH dependence Status: Acute Plan: 1. Supportive measures. 2. Diet as tolerated. 3. Continue to monitor chemistries. Will follow as needed. RTO 2 weeks.
[2016-04-26] MEDS: WARFARIN 3 MG TAB PO SCH (17:48)
--- NOTE | 2016-04-26 19:49 | P.PN ---
Subjective Principal diagnosis: Abdominal pain 46-year-old gentleman with multiorgan transplant secondary to some defect in admitted to the hospital with abdominal pain secondary to acute pancreatitis due to alcohol intake. Patient has not been able to tolerate diet. States that his pain at rest is tolerable and he is able to tolerate ice chips at this time. Denies having any chest pain, difficulty breathing, any bloody diarrhea or hematemesis. 04/26/2016 Patient is significantly improved. Is able to tolerate liquids today. Abdominal pain is significantly improved. Objective - Vital Signs Vital signs: Vital Signs Temp 97.8 F 04/26/16 16:00 Pulse 74 04/26/16 16:00 Resp 18 04/26/16 16:00 BP 141/84 04/26/16 16:00 Pulse Ox 94 L 04/26/16 16:00 Intake & Output 04/26/16 04/26/16 04/27/16 06:59 18:59 06:59 Intake Total 800 600 Output Total 300 425 Balance 500 175 Weight 96.1 kg Intake: IV 800 Sodium Chloride 0.9% 1, 800 000 ml @ 100 mls/hr IV . Q10H [facility] Rx#:[id number] Oral 600 Output: Urine 300 425 Other: Voiding Method Urinal # Voids 1 # Bowel Movements 1 - Exam Gen Appearance alert oriented 3 in no distress Lungs currently clear to auscultation Abdomen is soft multiple previous surgical scars noted. Nontender to palpation. Neurologically no focal motor or sensory deficit patient Heart regular rate and rhythm no murmurs appreciated - Labs CBC & Chem 7: 04/26/16 06:12 04/26/16 06:12 Labs: Abnormal Lab Results - Last 24 Hours (Table) 04/26/16 04/26/16 04/26/16 Range/Units 06:12 06:12 06:12 WBC 12.2 H (3.8-10.6) k/uL RBC 4.06 L (4.30-5.90) m/uL Hgb 11.8 L (13.0-17.5) gm/dL Hct 38.6 L (39.0-53.0) % MCHC 30.6 L (31.0-37.0) g/dL Plt Count 121 L (150-450) k/uL Monocytes # 1.2 H (0-1.0) k/uL PT 50.8 H (9.0-12.0) sec INR 5.1 H* (<1.1) Albumin 3.3 L (3.5-5.0) g/dL Assessment and Plan Plan: #1 acute on chronic pancreatitis secondary to alcohol intake #2 chronic atrial fibrillation that is rate controlled #3 history of mesenteric artery thrombosis #4 COPD #5 chronic adrenal insufficiency #6 anemia of chronic disease #7 history of gastroparesis #8 history of multiorgan transplant #8 chronic tobacco use plan Continue ongoing care. Advance diet to soft as tolerated patient is recommended to try full liquid diet later today. Patient is encouraged to take oral fluids. Patient will likely be discharged home in the next 24 hours.
[2016-04-27] MEDS: SODIUM CHLORIDE 0.9% 1,000 ML IV SCH (03:09)
[2016-04-27] MEDS: HYDROmorphone 1 MG/ML 1 ML SYRINGE IVP PRN ×3 (03:11→09:58)
[2016-04-27] MEDS: LIPASE 5,000/PROTEASE 17,000/AMYLASE 27,0000 PO SCH (08:56)
[2016-04-27] MEDS: TACROLIMUS 1 MG CAP PO SCH (08:57)
[2016-04-27] MEDS: SERTRALINE 100 MG TAB PO SCH (08:58)
[2016-04-27] MEDS: URSODIOL 300 MG CAP PO SCH (08:58)
[2016-04-27] MEDS: DOCUSATE 100 MG CAP PO SCH (08:58)
[2016-04-27] MEDS: PANTOPRAZOLE 40 MG TABLET PO SCH (08:59)
[2016-04-27] MEDS: CLOPIDOGREL 75 MG TAB PO SCH (08:59)
[2016-04-27] MEDS: MAGNESIUM OXIDE 400 MG TAB PO SCH (09:00)
[2016-04-27] MEDS: HYDROCORTISONE 10 MG TAB PO SCH (09:00)
[2016-04-27] MEDS: METOCLOPRAMIDE 10 MG TAB PO SCH (09:02)
[2016-04-27] MEDS: METOPROLOL TARTRATE 50 MG TAB PO SCH (09:03)
[2016-04-27] MEDS: TAMSULOSIN 0.4 MG CAP.ER.24H PO SCH (09:04)
[2016-04-27] MEDS: SERTRALINE 50 MG TAB PO SCH (09:04)
[2016-04-27] MEDS: clonazePAM 0.5 MG TAB PO SCH (09:07)
[2016-04-27] MEDS: HYDROcodone/APAP 10-325MG 1 EACH TAB PO SCH ×2 (09:07→13:00)
[2016-04-27] MEDS: METHADONE 5 MG TAB PO SCH (09:08)
--- NOTE | 2016-04-27 12:23 | P.DS ---
Providers Date of admission: 04/18/16 15:26 Expected date of discharge: 04/27/16 Attending physician: Eros Carrion Consults: 04/19/16 00:04 Consult Physician Routine Consulting Provider: Miguel Call Consult Reason/Comments: afib/a flutter heart rate of 130-140bpm. Do you want consulting provider notified?: Yes Primary care physician: Ras Zhao [place] Course: #1 acute on chronic pancreatitis secondary to alcohol intake #2 chronic atrial fibrillation that is rate controlled #3 history of mesenteric artery thrombosis #4 COPD #5 chronic adrenal insufficiency #6 anemia of chronic disease #7 history of gastroparesis #8 history of multiorgan transplant #8 chronic tobacco use Coumadin toxicity 46-year-old gentleman is admitted to the hospital with complaints of abdominal pain. Patient has a history of chronic otitis. Patient has a multiorgan transplant at [facility]. Patient also has chronic pain syndrome currently maintained on methadone. Patient apparently ingested alcohol during the holidays and came in to the hospital with acute pancreatic otitis. Patient's amylase and lipase were elevated and thousands. Patient was maintained on nothing by mouth and was given IV fluids and clear liquids. On the day of discharge patient was able to tolerate medications and fluids. However he is not able tolerate any solid diet. Patient will be discharged home on Dilaudid 8 mg every 6 hours for 4 days is to follow-up with Dr. Ras Zhao. Patient is recommended complete alcohol cessation. Patient is encouraged to slowly advance his diet. Patient will be given a liter of IV fluids prior to discharge. Patient was also noted to have an INR of 5.1 on the day of discharge will be sent home and is recommended not to take Coumadin until Saturday. This was discussed with the patient and he is in agreement with the plan. On the day of discharge abdomen is soft nontender no organomegaly Lungs good air entry clear to auscultation Heart S1-S2 heard regular rate and rhythm no murmurs appreciated Neurologically no focal motor or sensory deficits appreciated. Patient Condition at Discharge: Fair Plan - Discharge Summary New Discharge Prescriptions: HYDROmorphone HCL [Dilaudid] 8 mg PO Q6HR PRN #30 tab PRN Reason: Pain Scale 4 To 6 Discharge Medication List Calcium Citrate/Vitamin D3 [Calcium Citrate - Vit D3 Tab] 1 tab PO BID 09/02/13 [History] Clopidogrel [Plavix] 75 mg PO QAM 09/02/13 [History] Ferrous Gluconate 325 mg PO BID 09/02/13 [History] Magnesium Gluconate [Magonate] 500 mg PO BID 09/02/13 [History] Methadone [Dolophine] 5 mg PO BID 09/02/13 [History] Metoprolol Tartrate [Lopressor] 50 mg PO BID 09/02/13 [History] Multivitamin [Men's Multi-Vitamin] 1 tab PO QAM 09/02/13 [History] Omeprazole [PriLOSEC] 40 mg PO AC-BID 09/02/13 [History] Sertraline [Zoloft] 100 mg PO QAM 09/02/13 [History] Tacrolimus [Prograf] 1 mg PO HS 09/02/13 [History] Tacrolimus [Prograf] 2 mg PO AC-BRKFST 09/02/13 [History] Tamsulosin HCl [Flomax] 0.4 mg PO QAM 09/02/13 [History] Ursodiol [Actigall] 300 mg PO BID 09/02/13 [History] clonazePAM [KlonoPIN] 0.5 mg PO BID 09/02/13 [History] Albuterol Sulfate [Proair Respiclick] 2 puff PO RT-Q4H PRN 09/22/15 [History] Cholecalciferol (Vitamin D3) [Vitamin D3] 10,000 unit PO QAM 09/22/15 [History] Hydrocortisone 15 mg PO BID 09/22/15 [History] [place]-Swyscfwt-Gomytgc [Zenpep 10] 1 cap PO BID 09/22/15 [History] Metoclopramide [Reglan] 10 mg PO BID 09/22/15 [History] Naloxegol Oxalate [Movantik] 25 mg PO HS 09/22/15 [History] Sertraline [Zoloft] 50 mg PO QAM 09/22/15 [History] Ondansetron HCl [Zofran] 4 mg PO TID #30 tablet 04/03/16 [Rx] Docusate [Colace] 100 mg PO BID cap 04/27/16 [Rx] HYDROmorphone HCL [Dilaudid] 8 mg PO Q6HR PRN #30 tab 04/27/16 [Rx] Follow up Appointment(s)/Referral(s): Ras Zhao MD [Primary Care Provider] - 1-2 days Alycia Worley MD [STAFF PHYSICIAN] - 1 Week Activity/Diet/Wound Care/Special Instructions: Hold coumadin for 3 days Discharge Disposition: HOME SELF-CARE
[2016-04-27 13:50] VITALS: BP 118/66; PULSE 78; RESP 16; TEMP 97.5
[2016-04-27 15:22] VITALS: BMI 27.1
== END 2016-04-27 17:47 | disposition home or self-care (01) | DRG 439 ==
LOC: EC 11:37 → 5MS5E 15:26 → 6SEL 04-19 01:05 → 3SUR 04-26 22:33
PROVIDERS: ADMIT Hospitalist; ATTEND Hospitalist
DX: K85.20 Alcohol induced acute pancreatitis without necrosis or infection (principal); E27.40 Unspecified adrenocortical insufficiency; Z94.83 Pancreas transplant status; Z94.82 Intestine transplant status; Z94.89 Other transplanted organ and tissue status; I48.92 Unspecified atrial flutter; K31.84 Gastroparesis; I48.0 Paroxysmal atrial fibrillation; D63.8 Anemia in other chronic diseases classified elsewhere; K86.0 Alcohol-induced chronic pancreatitis; F10.20 Alcohol dependence, uncomplicated; F32.9 Major depressive disorder, single episode, unspecified; F41.9 Anxiety disorder, unspecified; G89.4 Chronic pain syndrome; I48.2 Chronic atrial fibrillation; J44.9 Chronic obstructive pulmonary disease, unspecified; K21.9 Gastro-esophageal reflux disease without esophagitis; N18.9 Chronic kidney disease, unspecified; R79.1 Abnormal coagulation profile; T45.511A Poisoning by anticoagulants, accidental (unintentional), initial encounter; T45.515A Adverse effect of anticoagulants, initial encounter; Z72.0 Tobacco use; Z79.02 Long term (current) use of antithrombotics/antiplatelets; Z86.14 Personal history of Methicillin resistant Staphylococcus aureus infection; Z79.899 Other long term (current) drug therapy
CPT/HCPCS: 36415; 74000; 74177; 80048; 80053; 81003; 82150; 82550; 82553; 83605; 83690; 84484; 85025; 85610; 85730; 87040; 87086; 93306; 94640; 96361; 96365; 96375; 96376; 99285

== ENCOUNTER → 2016-05-01 | Outpatient (CLI) | payer MEDICARE, BC, OTHER ==
[2016-05-01 18:34] LABS: Basophils % (A) 0 %; Eosinophils % (A) 0 %; HCT 45.5 % (39.0-53.0); HDW 3.05; HGB 13.6 gm/dL (13.0-17.5); Hypochromasia Marked; Large Platelets Flag Marked; Luc # (Auto) 0.38; Luc % (Auto) 3; Lymphocytes # (A) 0.3 k/uL (1.0-4.8); Lymphocytes % (A) 3 %; MCHC 29.9 g/dL (31.0-37.0); MCV 93.7 fL (80.0-100.0); Mean Platelet Volume 17.7; Monocytes # (A) 1.2 k/uL (0-1.0); Monocytes % (A) 10 %; Neutrophils # (A) 9.8 k/uL (1.3-7.7); Neutrophils % (A) 84 %; RBC 4.86 m/uL (4.30-5.90); RDW 15.4 % (11.5-15.5); WBC 11.7 k/uL (3.8-10.6); WBC (Perox) 14.74
[2016-05-01 18:37] LABS: Calcium 10.1 mg/dL (8.4-10.2); Potassium 4.2 mmol/L (3.5-5.1); Total Bilirubin 2.5 mg/dL (0.2-1.3); Total Protein 7.4 g/dL (6.3-8.2)
[2016-05-01 21:05] LABS: Manual Review Performed
[2016-05-01 21:06] LABS: Howell-Jolly Bodies Present; Target Cells Present
[2016-05-01 21:08] LABS: Large Platelets Present
== END | disposition home or self-care (01) ==
LOC: LABWHC1 17:10
PROVIDERS: ATTEND Internal Medicine Gastroenterology
DX: K85.90 Acute pancreatitis without necrosis or infection, unspecified (principal)
CPT/HCPCS: 36415; 80053; 82150; 83690; 85025; 85610; 85730

== ENCOUNTER 2016-05-18 19:33 | Emergency (ER) | payer MEDICARE, BC, OTHER ==
[2016-05-18 19:48] VITALS: TEMP 98.1
[2016-05-18] MEDS ORDERED: SODIUM CHLORIDE 0.9% 500 ML IV STA (20:22)
[2016-05-18] MEDS ORDERED: ONDANSETRON 4 MG/2 ML VIAL IVP STA (20:22)
[2016-05-18] MEDS ORDERED: SODIUM CHLORIDE 0.9% 1,000 ML IV STA ×2 (20:22→22:08)
--- NOTE | 2016-05-18 20:37 | ED ---
General Adult HPI - General Chief complaint: Dizziness Stated complaint: LBP/96/? Time Seen by Provider: 05/18/16 20:10 Source: patient, family, RN notes reviewed, old records reviewed Mode of arrival: wheelchair Limitations: no limitations - History of Present Illness Initial comments: This is a 46-year-old male ER for evaluation of multiple complaints is a real nausea vomiting diarrhea. Patient is a chronic pain patient on the methadone. Patient is feeling been feeling lightheaded dizzy and weak, no known fevers no chest pain mild shortness of breath. Patient was sent in by his doctor's office for low blood pressure as well as debility. - Related Data Home Medications Medication Instructions Recorded Confirmed Calcium Citrate/Vitamin D3 1 tab PO BID 09/02/13 05/18/16 [Calcium Citrate - Vit D3 Tab] Clopidogrel [Plavix] 75 mg PO QAM 09/02/13 05/18/16 Ferrous Gluconate 325 mg PO BID 09/02/13 05/18/16 Magnesium Gluconate [Magonate] 500 mg PO BID 09/02/13 05/18/16 Methadone [Dolophine] 5 mg PO BID 09/02/13 05/18/16 Metoprolol Tartrate [Lopressor] 50 mg PO BID 09/02/13 05/18/16 Multivitamin [Men's Multi-Vitamin] 1 tab PO QAM 09/02/13 05/18/16 Omeprazole [PriLOSEC] 40 mg PO AC-BID 09/02/13 05/18/16 Sertraline [Zoloft] 100 mg PO QAM 09/02/13 05/18/16 Tacrolimus [Prograf] 1 mg PO HS 09/02/13 05/18/16 Tacrolimus [Prograf] 2 mg PO AC-BRKFST 09/02/13 05/18/16 Tamsulosin HCl [Flomax] 0.4 mg PO QAM 09/02/13 05/18/16 Ursodiol [Actigall] 300 mg PO BID 09/02/13 05/18/16 clonazePAM [KlonoPIN] 0.5 mg PO BID 09/02/13 05/18/16 Albuterol Sulfate [Proair 2 puff PO RT-Q4H PRN 09/22/15 05/18/16 Respiclick] Cholecalciferol (Vitamin D3) 10,000 unit PO QAM 09/22/15 05/18/16 [Vitamin D3] Hydrocortisone 15 mg PO BID 09/22/15 05/18/16 Lpajeh-Uvxihqcj-Bhiqjwr [Zenpep 10] 1 cap PO BID 09/22/15 05/18/16 Metoclopramide [Reglan] 10 mg PO BID 09/22/15 05/18/16 Naloxegol Oxalate [Movantik] 25 mg PO HS 09/22/15 05/18/16 Sertraline [Zoloft] 50 mg PO QAM 09/22/15 05/18/16 Previous Rx's Medication Instructions Recorded Ondansetron HCl [Zofran] 4 mg PO TID #30 tablet 04/03/16 Docusate [Colace] 100 mg PO BID cap 04/27/16 HYDROmorphone HCL [Dilaudid] 8 mg PO Q6HR PRN #30 tab 04/27/16 Allergies Allergy/AdvReac Type Severity Reaction Status Date / Time heparin Allergy Unknown Verified 05/18/16 20:15 ketorolac tromethamine AdvReac migraines Verified 05/18/16 20:15 [From Toradol] morphine AdvReac Itching Verified 05/18/16 20:15 Review of Systems ROS Statement: Those systems with pertinent positive or pertinent negative responses have been documented in the HPI. ROS Other: All systems not noted in ROS Statement are negative. 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 History of Any Multi-Drug Resistant Organisms: MRSA Date of last positivie culture/infection: 2002 MDRO Source:: unsure where when had organ transplant Additional Past Surgical History / Comment(s): STATES MULTIPLE STOMACH SX, 2003 HAD 4 ORGAN TRANSPLANT: SMALL BOWEL, PANCREAS, duodenum, AND STOMACH performed at the [facility], knee surgical repair after injury on a barbed wire fence, as he had heart surgery for closed valves, EGDs and colonoscopies with last EGD 08/08/15. Past Anesthesia/Blood Transfusion Reactions: No Reported Reaction Additional Past Anesthesia/Blood Transfusion Reaction / Comment(s): STATES R/T TO MULTIPLE SX HE REQUIRES A LOT OF MEDICATION for anesthesia. He has had multiple blood transfusions without reaction. Past Psychological History: Anxiety, Depression Additional Psychological History / Comment(s): Pt resides with his significant other. He is independent. He drives. Smoking Status: Former smoker Past Alcohol Use History: None Reported Additional Past Alcohol Use History / Comment(s): Started smoking about 1981 and quit in 2011 Past Drug Use History: None Reported - Past Family History Mother History Unknown: Yes Additional Family Medical History / Comment(s): pt is adopted, does not know any hx Father History Unknown: Yes Additional Family Medical History / Comment(s): pt is adopted, does not know any hx General Exam Limitations: no limitations General appearance: alert, in no apparent distress Head exam: Present: atraumatic, normocephalic, normal inspection Eye exam: Present: normal appearance, PERRL, EOMI. Absent: scleral icterus, conjunctival injection, periorbital swelling ENT exam: Present: normal exam, mucous membranes moist Neck exam: Present: normal inspection. Absent: tenderness, meningismus, lymphadenopathy Respiratory exam: Present: normal lung sounds bilaterally. Absent: respiratory distress, wheezes, rales, rhonchi, stridor Cardiovascular Exam: Present: regular rate, normal rhythm, normal heart sounds. Absent: systolic murmur, diastolic murmur, rubs, gallop, clicks GI/Abdominal exam: Present: soft, normal bowel sounds. Absent: distended, tenderness, guarding, rebound, rigid Extremities exam: Present: normal inspection, full ROM, normal capillary refill. Absent: tenderness, pedal edema, joint swelling, calf tenderness Back exam: Present: normal inspection Neurological exam: Present: alert, oriented X3, CN II-XII intact Psychiatric exam: Present: normal affect, normal mood Skin exam: Present: warm, dry, intact, normal color. Absent: rash Course Vital Signs 05/18/16 05/18/16 19:43 20:33 Temperature 98.1 F Pulse Rate 78 73 Respiratory 18 18 Rate Blood Pressure 95/51 113/57 O2 Sat by Pulse 94 L 98 Oximetry - Reevaluation(s) Reevaluation #1: 05/18/16 22:15 At this time patient feels much better no diarrhea, able to ambulate without difficulty no dizziness, patient refuses hospital admission for resuscitation, states she is able to take by mouth EKG Findings - EKG Comments: EKG Findings:: EKG shows atrial flutter shows rate of 73 QRS 108, QTC 429 Medical Decision Making - Medical Decision Making For female in the ER for weakness, increasing dizziness and lethargy, chronic diarrhea. Patient states that he feels much better with IV fluids, will like to be discharged home - Lab Data Result diagrams: 05/18/16 20:15 05/18/16 20:15 Lab Results 05/18/16 05/18/16 05/18/16 Range/Units 20:15 20:15 20:15 WBC 16.3 H (3.8-10.6) k/uL RBC 4.22 L (4.30-5.90) m/uL Hgb 11.8 L (13.0-17.5) gm/dL Hct 39.2 (39.0-53.0) % MCV 92.7 (80.0-100.0) fL MCH 28.0 (25.0-35.0) pg MCHC 30.2 L (31.0-37.0) g/dL RDW 16.0 H (11.5-15.5) % Plt Count 148 L (150-450) k/uL Neutrophils % (Manual) 68.0 % Lymphocytes % (Manual) 19.0 % Monocytes % (Manual) 11.0 % Eosinophils % (Manual) 2.0 % Neutrophils # (Manual) 11.1 H (1.3-7.7) k/uL Lymphocytes # (Manual) 3.1 (1.0-4.8) k/uL Monocytes # (Manual) 1.8 H (0-1.0) k/uL Eosinophils # (Manual) 0.3 (0-0.7) k/uL Nucleated RBCs 0 (0-0) /100 WBC Hypersegmented Neuts Present Large Platelets Present Polychromasia Present Hypochromasia Marked Poikilocytosis (manual Present Target Cells Present PT (9.0-12.0) sec INR (<1.1) APTT (22.0-30.0) sec Sodium 142 (137-145) mmol/L Potassium 4.0 (3.5-5.1) mmol/L Chloride 109 H (98-107) mmol/L Carbon Dioxide 22 (22-30) mmol/L Anion Gap 11 mmol/L BUN 24 H (9-20) mg/dL Creatinine 1.72 H (0.66-1.25) mg/dL Est GFR (MDRD) Af Amer 52 (>60 ml/min/1.73 sqM) Est GFR (MDRD) Non-Af 43 (>60 ml/min/1.73 sqM) Glucose 112 H (74-99) mg/dL Plasma Lactic Acid Barrie (0.7-2.0) mmol/L Calcium 9.0 (8.4-10.2) mg/dL Phosphorus 3.0 (2.5-4.5) mg/dL Total Bilirubin 0.6 (0.2-1.3) mg/dL AST 17 (17-59) U/L ALT 33 (21-72) U/L Alkaline Phosphatase 127 H (38-126) U/L Total Creatine Kinase 30 L (55-170) U/L CK-MB (CK-2) 2.7 H* (0.0-2.4) ng/mL CK-MB (CK-2) Rel Index 9.0 Troponin I <0.012 (0.000-0.034) ng/mL Total Protein 6.7 (6.3-8.2) g/dL Albumin 3.5 (3.5-5.0) g/dL Lipase 145 (23-300) U/L 05/18/16 05/18/16 Range/Units 20:15 20:15 WBC (3.8-10.6) k/uL RBC (4.30-5.90) m/uL Hgb (13.0-17.5) gm/dL Hct (39.0-53.0) % MCV (80.0-100.0) fL MCH (25.0-35.0) pg MCHC (31.0-37.0) g/dL RDW (11.5-15.5) % Plt Count (150-450) k/uL Neutrophils % (Manual) % Lymphocytes % (Manual) % Monocytes % (Manual) % Eosinophils % (Manual) % Neutrophils # (Manual) (1.3-7.7) k/uL Lymphocytes # (Manual) (1.0-4.8) k/uL Monocytes # (Manual) (0-1.0) k/uL Eosinophils # (Manual) (0-0.7) k/uL Nucleated RBCs (0-0) /100 WBC Hypersegmented Neuts Large Platelets Polychromasia Hypochromasia Poikilocytosis (manual Target Cells PT 30.3 H (9.0-12.0) sec INR 3.1 (<1.1) APTT 35.3 H (22.0-30.0) sec Sodium (137-145) mmol/L Potassium (3.5-5.1) mmol/L Chloride (98-107) mmol/L Carbon Dioxide (22-30) mmol/L Anion Gap mmol/L BUN (9-20) mg/dL Creatinine (0.66-1.25) mg/dL Est GFR (MDRD) Af Amer (>60 ml/min/1.73 sqM) Est GFR (MDRD) Non-Af (>60 ml/min/1.73 sqM) Glucose (74-99) mg/dL Plasma Lactic Acid Barrie 1.4 (0.7-2.0) mmol/L Calcium (8.4-10.2) mg/dL Phosphorus (2.5-4.5) mg/dL Total Bilirubin (0.2-1.3) mg/dL AST (17-59) U/L ALT (21-72) U/L Alkaline Phosphatase (38-126) U/L Total Creatine Kinase (55-170) U/L CK-MB (CK-2) (0.0-2.4) ng/mL CK-MB (CK-2) Rel Index Troponin I (0.000-0.034) ng/mL Total Protein (6.3-8.2) g/dL Albumin (3.5-5.0) g/dL Lipase (23-300) U/L - Radiology Data Radiology results: report reviewed (Chest x-ray 2 view negative for acute disease), image reviewed Disposition Clinical Impression: ETOH abuse, History of organ transplantation, Dehydration, Dizziness Disposition: HOME SELF-CARE Condition: Good Instructions: Dizziness (ED), Near Syncope (ED), Lightheadedness (ED) Referrals: Ras Zhao MD [Primary Care Provider] - 1-2 days
[2016-05-18 20:49] LABS: CH 27.7; HCT 39.2 % (39.0-53.0); HDW 3.05; HGB 11.8 gm/dL (13.0-17.5); Hypochromasia Marked; Large Platelets Flag Marked; MCHC 30.2 g/dL (31.0-37.0); MCV 92.7 fL (80.0-100.0); Mean Platelet Volume 13.5; RBC 4.22 m/uL (4.30-5.90); WBC 16.3 k/uL (3.8-10.6); WBC (Perox) 18.53
[2016-05-18 20:50] LABS: Total Bilirubin 0.6 mg/dL (0.2-1.3); Total Protein 6.7 g/dL (6.3-8.2)
[2016-05-18 20:54] LABS: Creatine Kinase 30 U/L (55-170)
[2016-05-18 20:56] LABS: INR 3.1 (<1.1); Partial Thromboplastin Time 35.3 sec (22.0-30.0); Prothrombin Time 30.3 sec (9.0-12.0)
--- NOTE | 2016-05-18 21:06 | XR ---
EXAMINATION TYPE: XR chest 2V DATE OF EXAM: 05/18/2016 8:42 PM COMPARISON: 10/29/2012 HISTORY: Weakness and dizziness TECHNIQUE: Frontal and lateral views of the chest are obtained. FINDINGS: Heart size is normal. There is no heart failure. There is some coarsening of interstitial m arkings. There is some prominence of the pulmonary pablo as well as the superior mediastinum. There is no pleural effusion. There are chest leads. Bony thorax is intact. IMPRESSION: Pulmonary fibrotic changes. There is prominence of the pulmonary pablo apparently due to pulmonary hypertension and large central pulmonary arteries. There is prominent mediastinum consiste nt with lipomatosis evident on the old CT scan of 10/29/2012.. Heart and lungs are not significantly d ifferent than old chest x-ray.. No acute lung disease.
[2016-05-18 21:07] LABS: Troponin I <0.012 ng/mL (0.000-0.034)
[2016-05-18 21:09] LABS: Creatine Kinase MB 2.7 ng/mL (0.0-2.4)
[2016-05-18 21:15] LABS: Add Differential Manual Differential
[2016-05-18 21:16] LABS: Nucleated Red Blood Cells 0 /100 WBC (0-0); Total Cells Counted 100
[2016-05-18 21:17] LABS: Large Platelets Present; Polychromasia Present; Target Cells Present
[2016-05-18 21:18] LABS: Hypersegmented Neutrophils Present
[2016-05-18] MEDS ORDERED: DICYCLOMINE 10 MG/ML 2 ML AMP IM STA (22:15)
[2016-05-18 23:05] VITALS: RESP 18
[2016-05-18 23:06] VITALS: BP 106/51; PULSE 74
[2016-05-18 23:07] LABS: Appearance,Urine Clear (Clear); Bilirubin,Urine Negative (Negative); Glucose,Urine (UA) Negative (Negative); Ketones,Urine Negative (Negative); Leukocyte Esterase,Urine Negative (Negative); Mucus,Urine Few /hpf; Nitrite,Urine Negative (Negative); Particle Count 3815; Protein,Urine 1+ (Negative); RBC,Urine 1 /hpf (0-5); Specific Gravity,Urine 1.021 (1.001-1.035); UA Billing (MACRO vs. MICRO) MICRO; Urobilinogen,Urine <2.0 mg/dL (<2.0); WBC,Urine 1 /hpf (0-5)
== END 2016-05-18 23:45 | disposition home or self-care (01) ==
LOC: EC 19:33
DX: E86.0 Dehydration (principal); R55 Syncope and collapse; F10.10 Alcohol abuse, uncomplicated; R06.02 Shortness of breath; I95.9 Hypotension, unspecified; I48.91 Unspecified atrial fibrillation; J44.9 Chronic obstructive pulmonary disease, unspecified; K21.9 Gastro-esophageal reflux disease without esophagitis; F41.8 Other specified anxiety disorders; D64.9 Anemia, unspecified; Z87.19 Personal history of other diseases of the digestive system; Z53.20 Procedure and treatment not carried out because of patient's decision for unspecified reasons; Z87.891 Personal history of nicotine dependence; Z79.02 Long term (current) use of antithrombotics/antiplatelets; Z79.899 Other long term (current) drug therapy; Z88.5 Allergy status to narcotic agent; Z88.8 Allergy status to other drugs, medicaments and biological substances; Z94.83 Pancreas transplant status; Z94.82 Intestine transplant status; Z94.89 Other transplanted organ and tissue status
CPT/HCPCS: 36415; 71020; 80053; 81001; 82550; 82553; 83605; 83690; 84100; 84484; 85025; 85610; 85730; 87086; 93005; 96360; 96361; 99284

== ENCOUNTER 2016-06-04 12:26 | Inpatient (IN) | payer MEDICARE, BC, OTHER ==
[2016-06-04] MEDS ORDERED: ALBUTEROL NEBULIZED 2.5 MG/3 ML INHALATION STA (13:05)
[2016-06-04] MEDS ORDERED: methylPREDNISolone SOD SUCCI 125 MG/2 ML VIAL IV STA (13:05)
[2016-06-04] MEDS ORDERED: SODIUM CHLORIDE 0.9% 1,000 ML IV STA (13:05)
[2016-06-04] MEDS ORDERED: IPRATROPIUM-ALBUTEROL 3 ML NEB INHALATION STA (13:05)
[2016-06-04] MEDS: HYDROmorphone 1 MG/ML 1 ML SYRINGE IVP PRN ×2 (13:48→21:06)
[2016-06-04 13:59] LABS: Calcium 9.1 mg/dL (8.4-10.2); Total Bilirubin 0.6 mg/dL (0.2-1.3); Total Protein 6.7 g/dL (6.3-8.2)
[2016-06-04 14:03] LABS: Anisocytosis Slight; Basophils # (A) 0.1 k/uL (0-0.2); Basophils % (A) 0 %; CH 27.3; CHCM 29.9; Eosinophils # (A) 0.2 k/uL (0-0.7); Eosinophils % (A) 1 %; HCT 36.6 % (39.0-53.0); HDW 3.57; HGB 11.1 gm/dL (13.0-17.5); Hypochromasia Marked; Large Platelets Flag Marked; Luc # (Auto) 0.44; Luc % (Auto) 2; Lymphocytes # (A) 2.5 k/uL (1.0-4.8); Lymphocytes % (A) 13 %; MCH 27.8 pg (25.0-35.0); MCHC 30.3 g/dL (31.0-37.0); MCV 91.8 fL (80.0-100.0); Mean Platelet Volume 13.3; Monocytes # (A) 1.5 k/uL (0-1.0); Monocytes % (A) 7 %; Neutrophils # (A) 15.4 k/uL (1.3-7.7); Neutrophils % (A) 77 %; Poikilocytosis Slight; RBC 3.98 m/uL (4.30-5.90); RDW 16.3 % (11.5-15.5); WBC 20.1 k/uL (3.8-10.6); WBC (Perox) 23.09
[2016-06-04 14:10] LABS: Creatine Kinase 23 U/L (55-170)
[2016-06-04 14:12] LABS: INR 1.7 (<1.1); Partial Thromboplastin Time 31.7 sec (22.0-30.0); Prothrombin Time 16.8 sec (9.0-12.0)
[2016-06-04 14:24] LABS: Creatine Kinase MB 0.5 ng/mL (0.0-2.4); Troponin I <0.012 ng/mL (0.000-0.034)
[2016-06-04 14:30] LABS: Large Platelets Present; Manual Review Performed
[2016-06-04 14:35] LABS: Howell-Jolly Bodies Present; Target Cells Present
--- NOTE | 2016-06-04 15:14 | XR ---
EXAMINATION TYPE: XR chest 2V DATE OF EXAM: 06/04/2016 3:09 PM COMPARISON: 05/18/2016 TECHNIQUE: PA and lateral views submitted. HISTORY: Shortness of breath and congestion FINDINGS: There is cardiomegaly and diffuse left-sided infiltrate. No pleural effusion or pneumothorax. No inte rstitial edema. Underlying COPD suspected. IMPRESSION: 1. Left-sided infiltrate correlate for pneumonia.
[2016-06-04] MEDS ORDERED: HYDROmorphone 1 MG/ML 1 ML SYRINGE IVP STA (15:18)
[2016-06-04] MEDS ORDERED: cefTRIAXone 2,000 MG in SODIUM CHLORIDE 0.9% 100 ML IVPB STA (15:26)
[2016-06-04] MEDS ORDERED: AZITHROMYCIN 500 MG in SODIUM CHLORIDE 0.9% 250 ML IVPB STA (15:27)
[2016-06-04] MEDS ORDERED: ACETAMINOPHEN TAB 500 MG TAB PO STA (15:34)
--- NOTE | 2016-06-04 15:38 | ED ---
SOB HPI - General Chief Complaint: Shortness of Breath Stated Complaint: Cough, shortness of breath Time Seen by Provider: 06/04/16 13:01 Source: patient Mode of arrival: ambulatory Limitations: no limitations - History of Present Illness Initial Comments: And with the shortness of breath, he fell recently and now bruised his ribs and the left sidecomplaining about shortness of breath and nitrates with deep breaths and he can take for] he also had a fever and chills last night he had some right is as well and his temp in the ER is a slightly elevated. Eyes any headaches no neck stiffness he does have shortness of breath and pleuritic chest pain no abdominal pain no frequency urgency dysuria - Related Data Home Medications Medication Instructions Recorded Confirmed Calcium Citrate/Vitamin D3 1 tab PO BID 09/02/13 06/04/16 [Calcium Citrate - Vit D3 Tab] Clopidogrel [Plavix] 75 mg PO QAM 09/02/13 06/04/16 Ferrous Gluconate 325 mg PO BID 09/02/13 06/04/16 Magnesium Gluconate [Magonate] 500 mg PO BID 09/02/13 06/04/16 Methadone [Dolophine] 5 mg PO BID 09/02/13 06/04/16 Metoprolol Tartrate [Lopressor] 50 mg PO BID 09/02/13 06/04/16 Multivitamin [Men's Multi-Vitamin] 1 tab PO QAM 09/02/13 06/04/16 Omeprazole [PriLOSEC] 40 mg PO AC-BID 09/02/13 06/04/16 Sertraline [Zoloft] 100 mg PO QAM 09/02/13 06/04/16 Tacrolimus [Prograf] 1 mg PO HS 09/02/13 06/04/16 Tacrolimus [Prograf] 2 mg PO AC-BRKFST 09/02/13 06/04/16 Tamsulosin HCl [Flomax] 0.4 mg PO QAM 09/02/13 06/04/16 Ursodiol [Actigall] 300 mg PO BID 09/02/13 06/04/16 clonazePAM [KlonoPIN] 0.5 mg PO BID 09/02/13 06/04/16 Albuterol Sulfate [Proair 2 puff PO RT-Q4H PRN 09/22/15 06/04/16 Respiclick] Cholecalciferol (Vitamin D3) 10,000 unit PO QAM 09/22/15 06/04/16 [Vitamin D3] Hydrocortisone 15 mg PO BID 09/22/15 06/04/16 Tpvmmr-Lzwyytgk-Uurjjrf [Zenpep 10] 1 cap PO BID 09/22/15 06/04/16 Metoclopramide [Reglan] 10 mg PO BID 09/22/15 06/04/16 Naloxegol Oxalate [Movantik] 25 mg PO HS 09/22/15 06/04/16 Sertraline [Zoloft] 50 mg PO QAM 09/22/15 06/04/16 Previous Rx's Medication Instructions Recorded Ondansetron HCl [Zofran] 4 mg PO TID #30 tablet 04/03/16 Docusate [Colace] 100 mg PO BID cap 04/27/16 HYDROmorphone HCL [Dilaudid] 8 mg PO Q6HR PRN #30 tab 04/27/16 Allergies Allergy/AdvReac Type Severity Reaction Status Date / Time heparin Allergy Unknown Verified 06/04/16 13:18 ketorolac tromethamine AdvReac migraines Verified 06/04/16 13:18 [From Toradol] morphine AdvReac Itching Verified 06/04/16 13:18 Review of Systems ROS Statement: Those systems with pertinent positive or pertinent negative responses have been documented in the HPI. ROS Other: All systems not noted in ROS Statement are negative. 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 History of Any Multi-Drug Resistant Organisms: MRSA Date of last positivie culture/infection: 2002 MDRO Source:: unsure where when had organ transplant Additional Past Surgical History / Comment(s): STATES MULTIPLE STOMACH SX, 2003 HAD 4 ORGAN TRANSPLANT: SMALL BOWEL, PANCREAS, duodenum, AND STOMACH performed at the [facility], knee surgical repair after injury on a barbed wire fence, as infant he had heart surgery for closed valves, EGDs and colonoscopies with last EGD 08/08/15. Past Anesthesia/Blood Transfusion Reactions: No Reported Reaction Additional Past Anesthesia/Blood Transfusion Reaction / Comment(s): STATES R/T TO MULTIPLE SX HE REQUIRES A LOT OF MEDICATION for anesthesia. He has had multiple blood transfusions without reaction. Past Psychological History: Anxiety, Depression Additional Psychological History / Comment(s): Pt resides with his significant other. He is independent. He drives. Smoking Status: Former smoker Past Alcohol Use History: None Reported Additional Past Alcohol Use History / Comment(s): Started smoking about 1981 and quit in 2011 Past Drug Use History: None Reported - Past Family History Mother History Unknown: Yes Additional Family Medical History / Comment(s): pt is adopted, does not know any hx Father History Unknown: Yes Additional Family Medical History / Comment(s): pt is adopted, does not know any hx General Exam - General Exam Comments Initial Comments: General: The patient is awake and alert, in [id number] distress, he looks pale, he is tachycardic Skin: Skin is warm and dry and no rashes or lesions are noted. Eye: Pupils are equal, round and reactive to light, extra-ocular movements are intact; there is normal conjunctiva bilaterally. Ears, nose, mouth and throat: There are moist mucous membranes and no oral lesions. Neck: The neck is supple, there is no tenderness or JVD. Cardiovascular: There is a regular rate and rhythm. No murmur, rub or gallop is appreciated. Respiratory: To auscultation bilateral, his breath sounds on the lower bases, crackles noticed and now COPD on the both sides as well Gastrointestinal: Soft, non-distended, non-tender abdomen without masses or organomegaly noted. There is no rebound or guarding present. Bowel sounds are unremarkable. Back: There is no tenderness to palpation in the midline. There is no obvious deformity. Musculoskeletal: Normal ROM, no tenderness, There is no pedal edema. There is no calf tenderness or swelling. No cords were appreciated. Neurological: CN II-XII intact, Cranial nerves III through XII are intact. There are no obvious motor or sensory deficits. Coordination appears grossly intact. Speech is normal. Psychiatric: Cooperative, appropriate mood & affect, normal judgment. Limitations: no limitations Course Vital Signs 06/04/16 06/04/16 06/04/16 12:55 13:46 14:00 Temperature 98.1 F Pulse Rate 92 93 124 H Respiratory 22 Rate Blood Pressure 90/54 O2 Sat by Pulse 86 L Oximetry 06/04/16 06/04/16 06/04/16 14:15 14:18 14:29 Temperature Pulse Rate 126 H 100 101 H Respiratory 18 Rate Blood Pressure 97/54 O2 Sat by Pulse 95 Oximetry 06/04/16 06/04/16 14:58 15:08 Temperature Pulse Rate 164 H Respiratory 18 Rate Blood Pressure 157/87 O2 Sat by Pulse Oximetry EKG is atrial fibrillation with rapid ventricular response is a ventricular rate is 1 or 9 QRS duration is 82 QT/QTc is 292/393, this EKG has a multiple artifacts, do not see any ST elevation or significant S2 depression in this EKG Medical Decision Making - Lab Data Result diagrams: 06/04/16 13:36 06/04/16 13:36 Lab Results 06/04/16 06/04/16 06/04/16 Range/Units 13:36 13:36 13:36 WBC 20.1 H (3.8-10.6) k/uL RBC 3.98 L (4.30-5.90) m/uL Hgb 11.1 L (13.0-17.5) gm/dL Hct 36.6 L (39.0-53.0) % MCV 91.8 (80.0-100.0) fL MCH 27.8 (25.0-35.0) pg MCHC 30.3 L (31.0-37.0) g/dL RDW 16.3 H (11.5-15.5) % Plt Count 263 (150-450) k/uL Neutrophils % 77 % Lymphocytes % 13 % Monocytes % 7 % Eosinophils % 1 % Basophils % 0 % Neutrophils # 15.4 H (1.3-7.7) k/uL Lymphocytes # 2.5 (1.0-4.8) k/uL Monocytes # 1.5 H (0-1.0) k/uL Eosinophils # 0.2 (0-0.7) k/uL Basophils # 0.1 (0-0.2) k/uL Manual Slide Review Performed Large Platelets Present Hypochromasia Marked Poikilocytosis Slight Anisocytosis Slight Target Cells Present Ross-Chadbourn Bodies Present PT (9.0-12.0) sec INR (<1.1) APTT (22.0-30.0) sec D-Dimer (<0.60) mg/L FEU Sodium 143 (137-145) mmol/L Potassium 4.0 (3.5-5.1) mmol/L Chloride 109 H (98-107) mmol/L Carbon Dioxide 23 (22-30) mmol/L Anion Gap 11 mmol/L BUN 23 H (9-20) mg/dL Creatinine 1.64 H (0.66-1.25) mg/dL Est GFR (MDRD) Af Amer 55 (>60 ml/min/1.73 sqM) Est GFR (MDRD) Non-Af 45 (>60 ml/min/1.73 sqM) Glucose 110 H (74-99) mg/dL Calcium 9.1 (8.4-10.2) mg/dL Total Bilirubin 0.6 (0.2-1.3) mg/dL AST 18 (17-59) U/L ALT 20 L (21-72) U/L Alkaline Phosphatase 138 H (38-126) U/L Total Creatine Kinase 23 L (55-170) U/L CK-MB (CK-2) 0.5 (0.0-2.4) ng/mL CK-MB (CK-2) Rel Index 2.2 Troponin I <0.012 (0.000-0.034) ng/mL NT-Pro-B Natriuret Pep pg/mL Total Protein 6.7 (6.3-8.2) g/dL Albumin 3.3 L (3.5-5.0) g/dL 06/04/16 06/04/16 Range/Units 13:36 13:36 WBC (3.8-10.6) k/uL RBC (4.30-5.90) m/uL Hgb (13.0-17.5) gm/dL Hct (39.0-53.0) % MCV (80.0-100.0) fL MCH (25.0-35.0) pg MCHC (31.0-37.0) g/dL RDW (11.5-15.5) % Plt Count (150-450) k/uL Neutrophils % % Lymphocytes % % Monocytes % % Eosinophils % % Basophils % % Neutrophils # (1.3-7.7) k/uL Lymphocytes # (1.0-4.8) k/uL Monocytes # (0-1.0) k/uL Eosinophils # (0-0.7) k/uL Basophils # (0-0.2) k/uL Manual Slide Review Large Platelets Hypochromasia Poikilocytosis Anisocytosis Target Cells Ross-Chadbourn Bodies PT 16.8 H (9.0-12.0) sec INR 1.7 (<1.1) APTT 31.7 H (22.0-30.0) sec D-Dimer 0.75 H (<0.60) mg/L FEU Sodium (137-145) mmol/L Potassium (3.5-5.1) mmol/L Chloride (98-107) mmol/L Carbon Dioxide (22-30) mmol/L Anion Gap mmol/L BUN (9-20) mg/dL Creatinine (0.66-1.25) mg/dL Est GFR (MDRD) Af Amer (>60 ml/min/1.73 sqM) Est GFR (MDRD) Non-Af (>60 ml/min/1.73 sqM) Glucose (74-99) mg/dL Calcium (8.4-10.2) mg/dL Total Bilirubin (0.2-1.3) mg/dL AST (17-59) U/L ALT (21-72) U/L Alkaline Phosphatase (38-126) U/L Total Creatine Kinase (55-170) U/L CK-MB (CK-2) (0.0-2.4) ng/mL CK-MB (CK-2) Rel Index Troponin I (0.000-0.034) ng/mL NT-Pro-B Natriuret Pep 1100 pg/mL Total Protein (6.3-8.2) g/dL Albumin (3.5-5.0) g/dL Disposition Clinical Impression: Tachycardia, Tachypnea, Pneumonia, Atrial fibrillation, Chronic renal failure, Elevated d-dimer Disposition: ADMITTED IP TO THIS HOSP Condition: Fair
[2016-06-04] MEDS ORDERED: PNEUMONIA PROTOCOL UTILIZED 1 EACH MISC PO PRN (15:48)
[2016-06-04] MEDS ORDERED: IPRATROPIUM-ALBUTEROL 3 ML NEB INHALATION PRN (15:48)
[2016-06-04] MEDS ORDERED: IPRATROPIUM 0.5 MG/2.5 ML NEBU INHALATION PRN (15:48)
[2016-06-04] MEDS ORDERED: ALBUTEROL NEBULIZED 2.5 MG/3 ML INHALATION PRN (15:52)
[2016-06-04] MEDS ORDERED: ONDANSETRON 4 MG TAB PO PRN (16:00)
[2016-06-04] MEDS ORDERED: DILTIAZEM 5 MG/ML 5 ML VIAL IVP STA (16:04)
[2016-06-04] MEDS ORDERED: DILTIAZEM 125 MG in SODIUM CHLORIDE 0.9% 100 ML IV ONE (16:04)
[2016-06-04] MEDS ORDERED: NON-FORMULARY DRUG (Naloxegol Oxalate [Movantik] 25 MG) PO SCH (21:00)
[2016-06-05] MEDS: HYDROmorphone 1 MG/ML 1 ML SYRINGE IVP PRN ×4 (01:19→21:36)
[2016-06-05] MEDS: PANTOPRAZOLE 40 MG TABLET PO SCH ×3 (06:53→17:26)
[2016-06-05] MEDS: LIPASE 5,000/PROTEASE 17,000/AMYLASE 27,0000 PO SCH ×3 (06:53→17:26)
[2016-06-05] MEDS: FERROUS SULFATE 325 MG TAB PO SCH ×3 (06:53→17:26)
[2016-06-05] MEDS: CALCIUM CARB-VIT D 500MG-200UN 1 EACH TAB PO SCH ×3 (06:53→17:26)
[2016-06-05] MEDS: clonazePAM 0.5 MG TAB PO SCH ×3 (06:54→21:35)
[2016-06-05] MEDS: DOCUSATE 100 MG CAP PO SCH ×3 (06:54→21:28)
[2016-06-05] MEDS: HYDROCORTISONE 10 MG TAB PO SCH ×3 (06:54→21:26)
[2016-06-05] MEDS: MAGNESIUM OXIDE 400 MG TAB PO SCH ×3 (06:54→21:27)
[2016-06-05] MEDS: METHADONE 5 MG TAB PO SCH ×3 (06:55→21:34)
[2016-06-05] MEDS: METOCLOPRAMIDE 10 MG TAB PO SCH ×3 (06:55→21:29)
[2016-06-05] MEDS: URSODIOL 300 MG CAP PO SCH ×4 (06:55→21:29)
[2016-06-05] MEDS: METOPROLOL TARTRATE 50 MG TAB PO SCH ×3 (06:55→21:29)
[2016-06-05] MEDS: TACROLIMUS 1 MG CAP PO SCH ×3 (06:55→21:29)
--- NOTE | 2016-06-05 09:05 | NM ---
EXAMINATION TYPE: NM pul vent and perfuse DATE OF EXAM: 06/05/2016 8:55 AM COMPARISON: Chest x-ray from yesterday. HISTORY: Shortness of breath and congestion. History of recent rib fractures. TECHNIQUE: Utilizing inhalation of 70 mCi Tc 99m DTPA aerosol and intravenous injection of 5.5 mCi o f Tc 99m MAA, ventilation and perfusion images are acquired post injection in multiple projections. FINDINGS: There are some small to moderate-sized matching defects throughout both lungs most pronounced central ly. Findings more pronounced in upper lungs. No mismatch defects are clearly seen. IMPRESSION: Low probability for pulmonary embolism.
[2016-06-05] MEDS: HYDROmorphone 2 MG TAB PO PRN ×2 (09:58→19:58)
[2016-06-05] MEDS: CHOLECALCIFEROL 1,000 UNIT TAB PO SCH (10:02)
[2016-06-05] MEDS: TAMSULOSIN 0.4 MG CAP.ER.24H PO SCH (10:03)
[2016-06-05] MEDS: SERTRALINE 50 MG TAB PO SCH (10:04)
[2016-06-05] MEDS: SERTRALINE 100 MG TAB PO SCH (10:05)
[2016-06-05] MEDS: CLOPIDOGREL 75 MG TAB PO SCH (10:05)
--- NOTE | 2016-06-05 10:34 | XR ---
EXAMINATION TYPE: XR chest 2V DATE OF EXAM: 06/05/2016 9:24 AM COMPARISON: Prior chest x-ray May, prior CT abdomen pelvis 18 April 2016 HISTORY: Pneumonia, left rib fractures TECHNIQUE: Frontal and lateral views of the chest are obtained. FINDINGS: Multiple old left-sided rib fractures are present. There is no pneumothorax or pleural eff usion. There are overlying cardiac leads. Question some airspace disease at the left lower lobe. Hear t size is borderline enlarged although the size may be accentuated by rotation. IMPRESSION: There may be some improvement in aeration in the left lower lobe. Additional follow-up r ecommended. Consider follow-up CT abdomen pelvis for abnormal appearance of pancreas.
--- NOTE | 2016-06-05 10:54 | ECHOF ---
Referral Reason:afib MEASUREMENTS -------- HEIGHT: 188.0 cm WEIGHT: 96.2 kg BP: 117/55 RVIDd: 3.3 cm (< 3.3) IVSd: 1.0 cm (0.6 - 1.1) LVIDd: 5.4 cm (3.9 - 5.3) LVPWd: 1.0 cm (0.6 - 1.1) IVSs: 1.6 cm LVIDs: 3.0 cm LVPWs: 1.7 cm LA Diam: 3.6 cm (2.7 - 3.8) LAESV Index (A-L): 15.87 ml/m Ao Diam: 3.0 cm (2.0 - 3.7) AV Cusp: 2.2 cm (1.5 - 2.6) MV EXCURSION: 18.048 mm (> 18.000) MV EF SLOPE: 64 mm/s (70 - 150) EPSS: 0.7 cm MV E Anthony: 1.56 m/s MV DecT: 231 ms MV A Anthony: 0.98 m/s MV E/A Ratio: 1.60 FINDINGS -------- Sinus rhythm. This was a technically adequate study. The left ventricular size is normal. Left ventricular wall thickness is normal. Overall left ventricular systolic function is normal with, an EF between 60 - 65 %. The right ventricle is normal in size and function. The left atrium is normal in size. Normal LA size by volume 22+/-6 ml/m2. The right atrium is normal in size. Aortic valve is trileaflet and is mildly thickened. Mild mitral annular calcification present. Mild mitral regurgitation is present. The tricuspid valve appears structurally normal. No regurgitation noted Trace/mild (physiologic) pulmonic regurgitation. The aortic root size is normal. The inferior vena cava is moderately dilated. There is no pericardial effusion. CONCLUSIONS -------- 1. Sinus rhythm. 2. Mild mitral annular calcification present. 3. Mild mitral regurgitation is present. 4. The tricuspid valve appears structurally normal. 5. Trace/mild (physiologic) pulmonic regurgitation. 6. The aortic root size is normal. 7. The inferior vena cava is moderately dilated. 8. There is no pericardial effusion. 9. This was a technically adequate study. 10. The left ventricular size is normal. 11. Left ventricular wall thickness is normal. 12. Overall left ventricular systolic function is normal with, an EF between 60 - 65 %. 13. The right ventricle is normal in size and function. 14. Normal LA size by volume 22+/-6 ml/m2. 15. The right atrium is normal in size. 16. Aortic valve is trileaflet and is mildly thickened. CHECK WRITER: Lorene Holly RDCS
[2016-06-05] MEDS: MULTIVITAMINS, THERA 1 EACH TAB PO SCH (11:13)
--- NOTE | 2016-06-05 11:39 | CONS ---
DATE OF CONSULTATION: CHIEF COMPLAINT: Chest discomfort and shortness of breath. Patient states that he has developed a sensation of cough, sharp chest pain and when he initially arrived was in atrial fibrillation with rapid ventricular rate for which Cardiology has been consulted. He converted back to sinus rhythm on his own. His D-dimer was elevated, underwent a V/Q scan that did not reveal any pulmonary embolism. Had an echocardiogram that showed normal LV function with mild mitral regurgitation patient. Patient has history of kidney and pancreatic transplant and states that he takes Coumadin regularly for thrombus that he has in relation to his graft. MEDICATIONS: He is on Klonopin, Actigall, Flomax, Prograf, Zoloft, Zofran, Prilosec, Lopressor 50 b.i.d., methadone and Dilaudid, Colace, Plavix, albuterol. Allergies are as charted and include HEPARIN, TORADOL and MORPHINE. FAMILY HISTORY: Negative for premature coronary artery disease. SOCIAL HISTORY: Negative current smoking, EtOH abuse, or drug abuse. REVIEW OF SYSTEMS: HEENT: Unremarkable. CARDIAC: As described above. RESPIRATORY: As described above. GI: Negative. GENITOURINARY: Significant for renal failure and transplant. PSYCHOSOCIAL: Negative. ENDOCRINE: Negative. HEMATOLOGIC: Negative. DERMATOLOGIC: Negative. CONSTITUTIONAL: Negative. The rest of the system review is not relevant. Labs show a BUN of 23, creatinine 1.6. INR is 1.7. D-dimer is 0.75. White cell count is elevated at 20, hemoglobin is 11.1. EKGs, the initial EKG showed atrial fibrillation with rapid ventricular rate. He subsequently converted to sinus rhythm. I do not have any EKGs from the conversion. V/Q scan was low probability for pulmonary embolism. Echocardiogram shows normal LV function. ASSESSMENT: 1. Paroxysmal atrial fibrillation. 2. Shortness of breath, probably due to left possible pneumonia. Patient has multiple rib fractures. 3. History of renal and pancreatic transplant. PLAN: From cardiac standpoint, patient is doing well. Will continue with his current medications then discharge. Please arrange followup with Dr. Call who seen him at last visit. Please resume Coumadin. His INR is 1.7, try to maintain the INR between 2 to 2.5.
--- NOTE | 2016-06-05 13:22 | HP ---
DATE OF ADMISSION: 06/04/2016 PRESENTING COMPLAINT: Cough, shortness of breath. HISTORY OF PRESENTING COMPLAINT: This is pleasant 46-year-old patient of Dr. Karimi who has got extensive medical history. Patient had a intestinal tract obstruction from congenital defect and had multiple visceral transplants at [facility] including mesenteric vein graft thrombosis and also ( ) gastroparesis. The chronic stable medical conditions include adrenal insufficiency, chronic anemia and as well as pancreatitis in the past. Patient had 4 organ transplant in 2002 including small bowel, pancreas, duodenum and stomach. Patient also had as infant cardiac surgery for cardiac valves. Patient about 2 weeks ago took a fall and has fractures of left-sided ribs. Patient started to cough more yesterday with yellow significant amount of sputum, low grade fever, pulse ox at home did drop down to about 70% and therefore decided to come in. Patient also was found to be in atrial fibrillation with rapid ventricular rate. The patient at the baseline has about 6 to 7 bowel movements a day. REVIEW OF SYSTEMS: CONSTITUTIONAL: Tired. HEENT: None. RESPIRATORY: As above. CARDIOVASCULAR: As above. GASTROINTESTINAL: As above. GENITOURINARY: None. MUSCULOSKELETAL: None. DERMATOLOGICAL: Chronic skin changes. HEMATOLOGICAL: None. LYMPHATIC: None. PSYCHIATRY: Some depression. NEUROLOGICAL: None. Past medical history of atrial fibrillation, COPD, GERD, congenital defects with intestinal tract obstruction including multivisceral organ transplant including small bowel, pancreas, duodenum and stomach at [facility] in 2002. Also patient had mesenteric vein graft thrombosis, gastritis, gastroparesis, adrenal insufficiency, chronic anemia. Additional surgical history includes left knee surgical repair after barbed wire fence and heart surgery as before. SOCIAL HISTORY: Patient resides with significant other. Patient smoked for about 30 years; stopped in 2011. FAMILY HISTORY: Patient is adopted. HOME MEDICATIONS: 1. Klonopin 0.5 mg p.o. b.i.d. 2. Actigall 300 mg p.o. b.i.d. 3. Flomax 0.4 mg p.o. daily. 4. Prograf 2 mg p.o. at breakfast. 5. Prograf 1 mg p.o. q.h.s. 6. Zoloft 50 mg in the morning and 100 mg in the morning. 7. Zofran 4 mg p.o. t.i.d. 8. Prilosec 40 mg a.c. b.i.d. 9. Movantik 25 mg p.o. q.h.s. 10. Multivitamin 1 tablet p.o. daily. 11. Lopressor 50 mg p.o. b.i.d. 12. Reglan 10 mg p.o. b.i.d. 13. Methadone 5 mg p.o. b.i.d. 14. Magnesium 500 mg p.o. b.i.d. 15. Zenpep 1 capsule p.o. b.i.d. 16. Hydrocortisone 15 mg p.o. b.i.d. 17. Dilaudid 8 mg p.o. q.6 p.r.n. 18. Ferrous gluconate 325 p.o. b.i.d. 19. Colace 100 mg b.i.d. 20. Plavix 75 p.o. daily. 21. Vitamin D3, 10,000 units p.o. daily. 22. ( ) vitamin D3 1 tablet p.o. b.i.d. 23. ProAir 2 puffs q.4 p.r.n. Allergy to HEPARIN, TORADOL, MORPHINE. ON EXAMINATION: VITAL SIGNS ON PRESENTATION: Temperature 100, pulse of 128, respirations 16, blood pressure 91/5, pulse ox 93% on 2 L. GENERAL APPEARANCE: Average built, lying in bed, tired appearing. EYES: Pupils equal. Conjunctivae normal. HEENT: Oral cavity normal. NECK: JVD not raised. Mass not palpable. RESPIRATORY: Effort ( ). LUNGS: Some diminished breath sounds on the left side. CARDIOVASCULAR: First and second sounds normal. No edema. ABDOMEN: Soft, nontender. Liver and spleen not palpable. LYMPHATIC: No lymph nodes palpable of the neck or axillae. PSYCHIATRY: Alert and oriented x3. Mood and affect slightly low appearing. NEUROLOGICAL: Pupils equal. Cranial nerves grossly intact. Power and sensation grossly intact. INVESTIGATIONS: White count 20.1, [id number]. INR 1.7. Potassium 4. BUN 23, creatinine 1.64. Patient's baseline was 14 and 1.08 on 04/26/16. Influenza A and B is negative. Chest x-ray reviewed by me shows left lower lobe infiltrate. ASSESSMENT: 1. Left lower lobe pneumonia, community acquired in an immunosuppressed patient. 2. Paroxysmal atrial fibrillation. 3. History for 4 organ transplant in 2002 including small bowel, pancreas, duodenum and stomach at [facility]. 4. Acute renal failure, could be prerenal, multifactorial including that from sepsis. 5. Chronic obstructive pulmonary disease in an ex-smoker. 6. Gastroesophageal reflux disease. 7. Gastroparesis. 8. Chronic mesenteric vein thrombosis for which the patient is on Coumadin. 9. Coumadin monitoring for therapeutic level. 10. Chronic adrenal insufficiency. 11. Anemia of chronic disease. PLAN: Patient is on ceftriaxone. Home medications are resumed. Will put the patient on IV stress dose of cortisone. Patient also was put on IV Cardizem, did convert to sinus rhythm. Home medication resumed. Care was discussed with the patient. Repeat electrolytes in the morning.
[2016-06-05] MEDS: AZITHROMYCIN 500 MG TAB PO SCH (15:55)
--- NOTE | 2016-06-05 15:57 | P.CNPUL ---
History of Present Illness Consult date: 06/05/16 Requesting physician: Angel Swanson Reason for consult: dyspnea Chief complaint: Left-sided chest pain, cough, congestion, palpitations History of present illness: This is a very pleasant 46-year-old gentleman who follows with Dr. Ras Zhao as his primary care physician. He has a history of previous history of small bowel pancreas duodenum and stomach transplant at the [facility] secondary to congenital defects and gastroparesis. 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 He also has a history of chronic obstructive pulmonary disease and paroxysmal atrial fibrillation. He presented here yesterday with complaints of left-sided chest pain. He had sustained a fall about 2 weeks ago. He developed increasing shortness of breath, cough and congestion. Left-sided chest pain with inhalation as well. He presented to the emergency room yesterday for the same. His initial chest x-ray did reveal left-sided infiltrate suspicious for pneumonia. He also has underlying chronic obstructive pulmonary disease. He does have a 30 year pack per day smoking history however quit approximately 4 years ago. He was found to be in atrial fibrillation with a rapid ventricular response requiring Cardizem drip. INR 1.7. White count 20.1. T-max 100.1. He initially was 86% on room air. He is maintaining O2 saturations in the 90s on 2 L/m per nasal cannula. He is seen today in consultation on the selective care unit. He is awake and alert in no acute distress. He has a loose nonproductive cough. He still has left-sided chest pain on inhalation. Denies any chills or night sweats. He is initiated on Rocephin and azithromycin. His heart rate is better controlled. Resume drip down to 5 mg per hour. Review of Systems 14 point review of system was conducted. 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, gastritis, gastroparesis, pt regurgitates after eating , past pancreatitis, adrenal insufficiency, chronic anemia, tracheobronchitis, pt stated stool is always on the loose side.BRONCHITIS History of Any Multi-Drug Resistant Organisms: MRSA Date of last positivie culture/infection: 2002 MDRO Source:: unsure where when had organ transplant Additional Past Surgical History / Comment(s): STATES MULTIPLE STOMACH SX, 2003 HAD 4 ORGAN TRANSPLANT: SMALL BOWEL, PANCREAS, duodenum, AND STOMACH performed at the [facility], knee surgical repair after injury on a barbed wire fence, as infant he had heart surgery for closed valves, EGDs and colonoscopies with last EGD 08/08/15. Past Anesthesia/Blood Transfusion Reactions: No Reported Reaction Additional Past Anesthesia/Blood Transfusion Reaction / Comment(s): STATES R/T TO MULTIPLE SX HE REQUIRES A LOT OF MEDICATION for anesthesia. He has had multiple blood transfusions without reaction. Past Psychological History: Anxiety, Depression Additional Psychological History / Comment(s): Pt resides with his significant other. He is independent. He drives. Smoking Status: Former smoker Past Alcohol Use History: None Reported Additional Past Alcohol Use History / Comment(s): Started smoking about 1981 and quit in 2011 Past Drug Use History: None Reported - Past Family History Mother History Unknown: Yes Additional Family Medical History / Comment(s): pt is adopted, does not know any hx Father History Unknown: Yes Additional Family Medical History / Comment(s): pt is adopted, does not know any hx Medications and Allergies Home Medications Medication Instructions Recorded Confirmed Type Calcium Citrate/Vitamin D3 1 tab PO BID 09/02/13 06/04/16 History [Calcium Citrate - Vit D3 Tab] Clopidogrel [Plavix] 75 mg PO QAM 09/02/13 06/04/16 History Ferrous Gluconate 325 mg PO BID 09/02/13 06/04/16 History Magnesium Gluconate [Magonate] 500 mg PO BID 09/02/13 06/04/16 History Methadone [Dolophine] 5 mg PO BID 09/02/13 06/04/16 History Metoprolol Tartrate [Lopressor] 50 mg PO BID 09/02/13 06/04/16 History Multivitamin [Men's Multi-Vitamin] 1 tab PO QAM 09/02/13 06/04/16 History Omeprazole [PriLOSEC] 40 mg PO AC-BID 09/02/13 06/04/16 History Sertraline [Zoloft] 100 mg PO QAM 09/02/13 06/04/16 History Tacrolimus [Prograf] 1 mg PO HS 09/02/13 06/04/16 History Tacrolimus [Prograf] 2 mg PO AC-BRKFST 09/02/13 06/04/16 History Tamsulosin HCl [Flomax] 0.4 mg PO QAM 09/02/13 06/04/16 History Ursodiol [Actigall] 300 mg PO BID 09/02/13 06/04/16 History clonazePAM [KlonoPIN] 0.5 mg PO BID 09/02/13 06/04/16 History Albuterol Sulfate [Proair 2 puff PO RT-Q4H PRN 09/22/15 06/04/16 History Respiclick] Cholecalciferol (Vitamin D3) 10,000 unit PO QAM 09/22/15 06/04/16 History [Vitamin D3] Hydrocortisone 15 mg PO BID 09/22/15 06/04/16 History Lucwqk-Syomgzqj-Raavepv [Zenpep 10] 1 cap PO BID 09/22/15 06/04/16 History Metoclopramide [Reglan] 10 mg PO BID 09/22/15 06/04/16 History Naloxegol Oxalate [Movantik] 25 mg PO HS 09/22/15 06/04/16 History Sertraline [Zoloft] 50 mg PO QAM 09/22/15 06/04/16 History Allergies Allergy/AdvReac Type Severity Reaction Status Date / Time heparin Allergy Unknown Verified 06/04/16 13:18 ketorolac tromethamine AdvReac migraines Verified 06/04/16 13:18 [From Toradol] morphine AdvReac Itching Verified 06/04/16 13:18 Physical Exam Vitals: Vital Signs Temp Pulse Pulse Pulse Resp BP BP 06/05/16 12:21 06/05/16 11:51 88 18 121/57 06/05/16 08:00 98 F 84 18 116/56 06/05/16 04:00 98.1 F 84 18 117/55 06/05/16 01:57 97.8 F 85 85 18 115/53 06/04/16 19:55 97.8 F 85 18 107/49 06/04/16 19:24 88 18 98/53 06/04/16 17:53 18 97/51 06/04/16 17:46 128 H 16 91/51 06/04/16 17:15 18 102/58 Pulse Ox 06/05/16 12:21 92 L 06/05/16 11:51 92 L 06/05/16 08:00 92 L 06/05/16 04:00 93 L 06/05/16 01:57 93 L 06/04/16 19:55 93 L 06/04/16 19:24 99 06/04/16 17:53 97 06/04/16 17:46 93 L 06/04/16 17:15 Intake and Output 06/05/16 06/05/16 06/05/16 06:59 14:59 22:59 Intake Total 240 120 Output Total 175 Balance 65 120 Intake: Oral 240 120 Output: Urine 175 Other: Voiding Method Urinal Weight 96.2 kg GENERAL EXAM: Alert, active, in no apparent distress. HEAD: Normocephalic. EYES: Normal reaction of pupils, equal size. NOSE: Clear with pink turbinates. THROAT: No erythema or exudates. NECK: No masses, no JVD. CHEST: No chest wall deformity. Left sided chest pain with inhalation. LUNGS: Equal air entry with crackles in the left posterior base. Diminished. CVS: S1 and S2 normal with no audible murmurs, irregular rhythm. ABDOMEN: Soft, normal bowel sounds, no guarding or rigidity. Extremities: There is no significant peripheral edema. No clubbing, no cyanosis. Peripheral pulses are intact. Results - Laboratory Findings CBC and BMP: 06/04/16 13:36 06/04/16 13:36 PT/INR, D-dimer PT 16.8 sec (9.0-12.0) H 06/04/16 13:36 INR 1.7 (<1.1) 06/04/16 13:36 D-Dimer 0.75 mg/L FEU (<0.60) H 06/04/16 13:36 - Diagnostic Findings Chest x-ray: image reviewed (Left lower lobe infiltrate) Assessment and Plan Plan: Impression: #1 Acute left lower lobe pneumonia, suspect community-acquired an immunocompromised patient. #2 Atrial fibrillation with a rapid ventricular response, currently better controlled on a Cardizem drip at 5 mg per hour. #3 History of for organ transplant including pancreas, stomach, duodenum, and small bowel in 2002 at the [facility]. Maintained on Prograf and Zenpep. #4 Chronic obstructive pulmonary disease in a patient with a 30 year smoking history. Quit in 2011. #5 History of mesenteric vein graft thrombosis, maintained on warfarin. #6 Adrenal insufficiency initiated on Cortef. #7 Anemia of chronic disease. #8 Chronic pain syndrome. Plan: The patient was seen and evaluated by Dr. Redmond. His chest x-ray and labs were reviewed. We'll continue with his current medications including ceftriaxone and azithromycin. We will continue with bronchodilators as needed. We'll continue to follow make further recommendations based on his clinical status.
[2016-06-06] MEDS ORDERED: cefTRIAXone 2,000 MG in SODIUM CHLORIDE 0.9% 100 ML IVPB SCH ×2 (03:20→03:21)
[2016-06-06] MEDS: FERROUS SULFATE 325 MG TAB PO SCH ×2 (06:11→16:56)
[2016-06-06] MEDS: PANTOPRAZOLE 40 MG TABLET PO SCH ×2 (06:11→22:01)
[2016-06-06] MEDS: TACROLIMUS 1 MG CAP PO SCH ×2 (06:11→22:02)
[2016-06-06] MEDS: CALCIUM CARB-VIT D 500MG-200UN 1 EACH TAB PO SCH ×2 (06:11→16:56)
[2016-06-06] MEDS: LIPASE 5,000/PROTEASE 17,000/AMYLASE 27,0000 PO SCH ×2 (06:11→16:56)
[2016-06-06] MEDS: HYDROmorphone 2 MG TAB PO PRN ×2 (06:12→14:49)
[2016-06-06] MEDS: METHADONE 5 MG TAB PO SCH ×2 (08:20→22:09)
[2016-06-06] MEDS: clonazePAM 0.5 MG TAB PO SCH ×2 (08:21→22:09)
[2016-06-06] MEDS: MAGNESIUM OXIDE 400 MG TAB PO SCH ×2 (08:21→22:01)
[2016-06-06] MEDS: HYDROmorphone 1 MG/ML 1 ML SYRINGE IVP PRN ×3 (08:21→20:40)
[2016-06-06] MEDS: METOPROLOL TARTRATE 50 MG TAB PO SCH ×2 (08:21→22:01)
[2016-06-06] MEDS: URSODIOL 300 MG CAP PO SCH ×2 (08:21→22:00)
[2016-06-06] MEDS: MULTIVITAMINS, THERA 1 EACH TAB PO SCH (08:22)
[2016-06-06] MEDS: CLOPIDOGREL 75 MG TAB PO SCH (08:22)
[2016-06-06] MEDS: CHOLECALCIFEROL 1,000 UNIT TAB PO SCH (08:22)
[2016-06-06] MEDS: SERTRALINE 50 MG TAB PO SCH (08:22)
[2016-06-06] MEDS: SERTRALINE 100 MG TAB PO SCH (08:23)
[2016-06-06] MEDS: HYDROCORTISONE 10 MG TAB PO SCH ×2 (08:23→22:10)
[2016-06-06] MEDS: METOCLOPRAMIDE 10 MG TAB PO SCH ×2 (08:23→22:01)
[2016-06-06] MEDS: DOCUSATE 100 MG CAP PO SCH ×2 (08:24→22:01)
[2016-06-06] MEDS: TAMSULOSIN 0.4 MG CAP.ER.24H PO SCH (08:24)
[2016-06-06 08:58] LABS: INR 1.5 (<1.1); Prothrombin Time 14.7 sec (9.0-12.0)
[2016-06-06 09:14] LABS: Anion Gap 10 mmol/L; Blood Urea Nitrogen 28 mg/dL (9-20); Carbon Dioxide 25 mmol/L (22-30); Chloride 108 mmol/L (98-107); Glucose 94 mg/dL (74-99); Non-African American GFR(MDRD) 55 (>60 ml/min/1.73 sqM); Potassium 4.2 mmol/L (3.5-5.1); Sodium 143 mmol/L (137-145)
--- NOTE | 2016-06-06 11:27 | P.PN ---
Subjective Principal diagnosis: Left-sided chest pain This is a 46-year-old gentleman who has history of paroxysmal atrial fibrillation, COPD, for prior origin transplant, small bowel, pancreas, duodenum , and stomach performed at [facility], anxiety and depression, prior smoking history, history of mesenteric vein graft thrombosis maintained on Coumadin, he presented to the hospital with symptoms of left-sided chest pain. Patient sustained a fall approximately 2 weeks prior to admission here, developed increasing shortness of breath with associated cough and congestion. Initial chest x-ray revealed a left-sided infiltrate suspicious for pneumonia. Patient does have significant prior smoking history. Cardiology consultation was initially requested because the patient was in atrial fibrillation with a rapid ventricular response. Patient's heart rate today is in the 70s to 80s, blood pressure 114/60. White blood cell count on admission 20.1. INR today 1.5. D-dimer 0.75, VQ scan of the chest was low probability for a pulmonary embolism. Echocardiogram with Doppler study was performed which revealed normal left ventricular systolic function. Patient is currently on metoprolol tartrate 50 mg one tablet by mouth twice a day, we'll give 7-1/2 mg of Coumadin today. Maintaining an INR in the range of 2-2.5. Objective - Vital Signs Vital signs: Vital Signs Temp 98.1 F 06/06/16 08:00 Pulse 79 06/06/16 08:00 Resp 18 06/06/16 08:00 BP 114/59 06/06/16 08:00 Pulse Ox 93 L 06/06/16 08:00 Intake & Output 06/05/16 06/06/16 06/06/16 18:59 06:59 18:59 Intake Total 720 100 Balance 720 100 Weight 96.5 kg Intake: Oral 720 100 Other: Voiding Method Urinal # Voids 1 0 - Exam PHYSICAL EXAMINATION: HEENT: Head is atraumatic, normocephalic. Pupils equal, round. Neck is supple. There is no elevated jugular venous pressure. HEART EXAMINATION: Heart S1, S2 normal. No murmur or gallop heard. CHEST EXAMINATION: Lungs reveal crackles to bilateral bases with diminished air entry to the bases. ABDOMEN: Soft, nontender. Bowel sounds are heard. No organomegaly noted. EXTREMITIES: 2+ peripheral pulses with no evidence of peripheral edema and no calf tenderness noted. NEUROLOGIC patient is awake, alert and oriented -3. . - Labs CBC & Chem 7: 06/04/16 13:36 06/06/16 08:35 Labs: Abnormal Lab Results - Last 24 Hours (Table) 06/06/16 06/06/16 Range/Units 08:35 08:35 PT 14.7 H (9.0-12.0) sec Chloride 108 H (98-107) mmol/L BUN 28 H (9-20) mg/dL Creatinine 1.39 H (0.66-1.25) mg/dL Assessment and Plan (1) Left lower lobe pneumonia Status: Acute (2) Paroxysmal a-fib Status: Acute (3) Anemia Status: Acute (4) Elevated d-dimer Status: Acute (5) History of organ transplantation Status: Acute (6) Pancreatitis of transplanted pancreas Status: Acute (7) Vascular graft thrombosis Status: Acute Plan: From cardiology's perspective, we'll give the patient 7-1/2 mg of Coumadin today. Maintain INR in the range of 2-2.5. Follow-up with Dr. Call in the office post discharge. Transferred to [facility] from cardiology's perspective. From cardiology's perspective, we will follow this patient with you now on an as-needed basis only, please don't hesitate to call with any questions.
--- NOTE | 2016-06-06 12:50 | P.PN ---
Subjective This is a very pleasant 46-year-old gentleman who follows with Dr. Ras Zhao as his primary care physician. He has a history of previous history of small bowel pancreas duodenum and stomach transplant at the [facility] secondary to congenital defects and gastroparesis. 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 He also has a history of chronic obstructive pulmonary disease and paroxysmal atrial fibrillation. He presented here yesterday with complaints of left-sided chest pain. He had sustained a fall about 2 weeks ago. He developed increasing shortness of breath, cough and congestion. Left-sided chest pain with inhalation as well. He presented to the emergency room yesterday for the same. His initial chest x-ray did reveal left-sided infiltrate suspicious for pneumonia. He also has underlying chronic obstructive pulmonary disease. He does have a 30 year pack per day smoking history however quit approximately 4 years ago. He was found to be in atrial fibrillation with a rapid ventricular response requiring Cardizem drip. INR 1.7. White count 20.1. T-max 100.1. He initially was 86% on room air. He is seen again today 06/06/2016 in follow-up on the selective care unit. He is awake and alert in no acute distress. He is breathing easier today as compared to yesterday. Not quite back to his baseline. He is dyspneic on extended conversation and with minimal exertion. He's been initiated on Rocephin and azithromycin. He is maintaining good O2 saturations in the 90s on 2 L/m per nasal cannula. His left-sided chest wall discomfort is improved. His atrial fibrillation is well controlled. He has been anticoagulated with warfarin. Objective - Vital Signs Vital signs: Vital Signs Temp 98.1 F 06/06/16 08:00 Pulse 80 06/06/16 12:00 Resp 18 06/06/16 12:00 BP 115/58 06/06/16 12:00 Pulse Ox 89 L 06/06/16 12:00 Intake & Output 06/05/16 06/06/16 06/06/16 18:59 06:59 18:59 Intake Total 720 200 Balance 720 200 Weight 96.5 kg Intake: Intake, IV Titration 100 Amount cefTRIAXone 2,000 mg In 100 Sodium Chloride 0.9% 100 ml @ 200 mls/hr IVPB Q24H [facility] Rx#:[id number] Oral 720 100 Other: Voiding Method Urinal # Voids 1 0 - Exam GENERAL EXAM: Alert, comfortable in no apparent distress. HEAD: Normocephalic. EYES: Normal reaction of pupils, equal size. NOSE: Clear with pink turbinates. THROAT: No erythema or exudates. NECK: No masses, no JVD. CHEST: No chest wall deformity. LUNGS: Equal air entry with few scattered rhonchi, crackles in the left posterior base. CVS: S1 and S2 normal with no audible murmurs, irregular rhythm. ABDOMEN: No hepatosplenomegaly, normal bowel sounds, no guarding or rigidity. SPINE: No scoliosis or deformity SKIN: No rashes CENTRAL NERVOUS SYSTEM: No focal deficits, tone is normal in all 4 extremities. Extremities: There is no significant peripheral edema. No clubbing, no cyanosis. Peripheral pulses are intact. - Labs CBC & Chem 7: 06/04/16 13:36 06/06/16 08:35 Labs: Abnormal Lab Results - Last 24 Hours (Table) 06/06/16 06/06/16 Range/Units 08:35 08:35 PT 14.7 H (9.0-12.0) sec Chloride 108 H (98-107) mmol/L BUN 28 H (9-20) mg/dL Creatinine 1.39 H (0.66-1.25) mg/dL Assessment and Plan Plan: Impression: #1 Acute left lower lobe pneumonia, suspect community-acquired an immunocompromised patient. #2 Atrial fibrillation with a rapid ventricular response, currently better controlled on a beta blockers and calcium channel blockers. #3 History of four organ transplant including pancreas, stomach, duodenum, and small bowel in 2002 at the [facility]. Maintained on Prograf and Zenpep. #4 Chronic obstructive pulmonary disease in a patient with a 30 year smoking history. Quit in 2011. #5 History of mesenteric vein graft thrombosis, maintained on warfarin. #6 Adrenal insufficiency initiated on Cortef. #7 Anemia of chronic disease. #8 Chronic pain syndrome. Plan: The patient was seen and evaluated by Dr. Redmond. The patient is improving from the pulmonary standpoint. We'll continue with his current medications. We will increase his activity as tolerated. We'll continue to follow make further recommendations based on his clinical status.
[2016-06-06] MEDS: AZITHROMYCIN 500 MG TAB PO SCH (16:56)
--- NOTE | 2016-06-06 18:16 | PN ---
DATE OF SERVICE: 06/06/2016 PRESENTING COMPLAINT: Cough, shortness of breath. INTERVAL HISTORY: This is a patient with multiple problems who presented with pneumonia. Cough is going down. Sputum production has gone down. Does feel weak and tired. Appetite is down. Patient also has atrial fibrillation, which is back in sinus rhythm. Lying in bed. Review of systems done for constitutional, cardiovascular, GI, pulmonary; relevant findings as above. Current medications are reviewed that include IV ceftriaxone. On examination, afebrile, pulse 79, respiration 18, blood pressure 114/59, pulse ox 93% on 2 L. GENERAL APPEARANCE: Lying in bed. Tired-appearing. EYES: Pupils equal. Conjunctivae normal. NECK: JVD not raised. Mass not palpable. RESPIRATORY: Effort normal. LUNGS: Decreased breath sounds in the bases. CARDIOVASCULAR: First and second sounds normal. No edema. ABDOMEN: Soft, non-tender. Liver and spleen not palpable. PSYCHIATRY: Alert and oriented x3. Mood and affect slightly low. INVESTIGATIONS: INR 1.5. Potassium 4.2. BUN 28, creatinine 1.39. ASSESSMENT: 1. Left lobe pneumonia, community-acquired, in an immunosuppressed patient, clinically improving. 2. Paroxysmal atrial fibrillation, currently in sinus rhythm. 3. History of 4-organ transplant in 2002, including small bowel, pancreas, duodenum and stomach at [facility]. 4. Acute renal failure; could be prerenal; multifactorial, including that from sepsis; could be acute tubular necrosis, slow to respond. 5. Chronic obstructive pulmonary disease in an ex-smoker. 6. Gastroesophageal reflux disease. 7. Gastroparesis. 8. Chronic mesenteric vein thrombosis, for which patient is on Coumadin. 9. Coumadin monitoring for therapeutic level. 10. Chronic adrenal insufficiency. 11. Anemia of chronic disease. PLAN: Continue current medication and treatment plan. Patient is doing better. Continue with antibiotics. Encourage to be out of bed.
[2016-06-06] MEDS ORDERED: traZODone HCL 100 MG TAB PO SCH (21:45)
[2016-06-06] MEDS: HYDROcodone/APAP 10-325MG 1 EACH TAB PO PRN (23:38)
[2016-06-06 23:53] VITALS: RESP 16
[2016-06-07] MEDS: HYDROcodone/APAP 10-325MG 1 EACH TAB PO PRN ×2 (05:56→13:17)
[2016-06-07] MEDS ORDERED: cefTRIAXone 2,000 MG in SODIUM CHLORIDE 0.9% 100 ML IVPB SCH (06:00)
[2016-06-07 07:59] VITALS: BP 132/91; PULSE 79; TEMP 99
[2016-06-07 08:53] LABS: INR 1.4 (<1.1); Prothrombin Time 13.4 sec (9.0-12.0)
[2016-06-07 08:57] LABS: Anion Gap 11 mmol/L; Blood Urea Nitrogen 22 mg/dL (9-20); Calcium 9.1 mg/dL (8.4-10.2); Carbon Dioxide 27 mmol/L (22-30); Chloride 105 mmol/L (98-107); Glucose 91 mg/dL (74-99); Non-African American GFR(MDRD) 59 (>60 ml/min/1.73 sqM); Potassium 4.4 mmol/L (3.5-5.1); Sodium 143 mmol/L (137-145)
[2016-06-07] MEDS: LIPASE 5,000/PROTEASE 17,000/AMYLASE 27,0000 PO SCH (09:43)
[2016-06-07] MEDS: TACROLIMUS 1 MG CAP PO SCH (09:45)
[2016-06-07] MEDS: FERROUS SULFATE 325 MG TAB PO SCH (09:45)
[2016-06-07] MEDS: PANTOPRAZOLE 40 MG TABLET PO SCH (09:46)
[2016-06-07] MEDS: URSODIOL 300 MG CAP PO SCH (09:46)
[2016-06-07] MEDS: DOCUSATE 100 MG CAP PO SCH (09:47)
[2016-06-07] MEDS: CLOPIDOGREL 75 MG TAB PO SCH (09:47)
[2016-06-07] MEDS: HYDROCORTISONE 10 MG TAB PO SCH (09:47)
[2016-06-07] MEDS: TAMSULOSIN 0.4 MG CAP.ER.24H PO SCH (09:47)
[2016-06-07] MEDS: CALCIUM CARB-VIT D 500MG-200UN 1 EACH TAB PO SCH (09:47)
[2016-06-07] MEDS: METOPROLOL TARTRATE 50 MG TAB PO SCH (09:47)
[2016-06-07] MEDS: SERTRALINE 100 MG TAB PO SCH (09:47)
[2016-06-07] MEDS: SERTRALINE 50 MG TAB PO SCH (09:47)
[2016-06-07] MEDS: METOCLOPRAMIDE 10 MG TAB PO SCH (09:47)
[2016-06-07] MEDS: MAGNESIUM OXIDE 400 MG TAB PO SCH (09:47)
[2016-06-07] MEDS: clonazePAM 0.5 MG TAB PO SCH (09:47)
[2016-06-07] MEDS: METHADONE 5 MG TAB PO SCH (09:48)
[2016-06-07] MEDS ORDERED: ENOXAPARIN 150 MG/ML SYRINGE SQ STA (12:47)
[2016-06-07] MEDS ORDERED: WARFARIN 5 MG TAB PO ONE (13:00)
[2016-06-07] MEDS: CHOLECALCIFEROL 1,000 UNIT TAB PO SCH (13:02)
[2016-06-07] MEDS: MULTIVITAMINS, THERA 1 EACH TAB PO SCH (13:02)
--- NOTE | 2016-06-07 13:24 | P.GSCN ---
History of Present Illness Consult date: 06/07/16 Reason for Consult: Surgical eval Requesting physician: Angel Swanson History of present illness: This is a 46-year-old gentleman who is being seen at the request of the attending for a surgical evaluation in a patient who has a past medical history of a multi-visceral transplantation involving stomach, duodenum, small bowel and pancreas secondary to interstitial severe obstruction in 2002 at the [place] [facility]. Patient does have a history of reoccurring pancreatitis remote history of alcohol abuse. Patient came into the emergency room this admission on June 04. Patient stated at that time he had fallen a couple weeks ago bruised his ribs on the left complaint of left-sided chest discomfort. He stated it hurt with he took in a deep breath. He did not any fever chills. Patient stated that he felt short of breath Patient is being treated by the attending for left lower lobe pneumonia community-acquired in a patient who is immune suppressed who is clinically improving. Patient currently is denying any abdominal discomfort. Denies any nausea vomiting. Denies any change in bowel habits. Patient states he follows up with Dr. Sanders [facility] and his last colonoscopy EGD was probably within the last 12 months with no acute findings. 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, knee surgical repair after injury on a barbed wire fence, as he had heart surgery for closed valves, EGDs and colonoscopies with last EGD 08/08/15. Past Anesthesia/Blood Transfusion Reactions: No Reported Reaction Additional Past Anesthesia/Blood Transfusion Reaction / Comm: STATES R/T TO MULTIPLE SX HE REQUIRES A LOT OF MEDICATION for anesthesia. He has had multiple blood transfusions without reaction. Past Psychological History: Anxiety, Depression Additional Psychological History / Comment(s): Pt resides with his significant other. He is independent. He drives. Smoking Status: Former smoker Past Alcohol Use History: None Reported Additional Past Alcohol Use History / Comment(s): Started smoking about 1981 and quit in 2011 Past Drug Use History: None Reported - Past Family History Mother History Unknown: Yes Additional Family Medical History / Comment(s): pt is adopted, does not know any hx Father History Unknown: Yes Additional Family Medical History / Comment(s): pt is adopted, does not know any hx Medications and Allergies Home Medications Medication Instructions Recorded Confirmed Type Calcium Citrate/Vitamin D3 1 tab PO BID 09/02/13 06/04/16 History [Calcium Citrate - Vit D3 Tab] Clopidogrel [Plavix] 75 mg PO QAM 09/02/13 06/04/16 History Ferrous Gluconate 325 mg PO BID 09/02/13 06/04/16 History Magnesium Gluconate [Magonate] 500 mg PO BID 09/02/13 06/04/16 History Methadone [Dolophine] 5 mg PO BID 09/02/13 06/04/16 History Metoprolol Tartrate [Lopressor] 50 mg PO BID 09/02/13 06/04/16 History Multivitamin [Men's Multi-Vitamin] 1 tab PO QAM 09/02/13 06/04/16 History Omeprazole [PriLOSEC] 40 mg PO AC-BID 09/02/13 06/04/16 History Sertraline [Zoloft] 100 mg PO QAM 09/02/13 06/04/16 History Tacrolimus [Prograf] 1 mg PO HS 09/02/13 06/04/16 History Tacrolimus [Prograf] 2 mg PO AC-BRKFST 09/02/13 06/04/16 History Tamsulosin HCl [Flomax] 0.4 mg PO QAM 09/02/13 06/04/16 History Ursodiol [Actigall] 300 mg PO BID 09/02/13 06/04/16 History clonazePAM [KlonoPIN] 0.5 mg PO BID 09/02/13 06/04/16 History Albuterol Sulfate [Proair 2 puff PO RT-Q4H PRN 09/22/15 06/04/16 History Respiclick] Cholecalciferol (Vitamin D3) 10,000 unit PO QAM 09/22/15 06/04/16 History [Vitamin D3] Hydrocortisone 15 mg PO BID 09/22/15 06/04/16 History Lsyxjh-Yalphngk-Hfrgutz [Zenpep 10] 1 cap PO BID 09/22/15 06/04/16 History Metoclopramide [Reglan] 10 mg PO BID 09/22/15 06/04/16 History Naloxegol Oxalate [Movantik] 25 mg PO HS 09/22/15 06/04/16 History Sertraline [Zoloft] 50 mg PO QAM 09/22/15 06/04/16 History Warfarin [Coumadin] 3 mg PO DAILY 06/07/16 06/07/16 History Allergies Allergy/AdvReac Type Severity Reaction Status Date / Time heparin Allergy Unknown Verified 06/04/16 13:18 ketorolac tromethamine AdvReac migraines Verified 06/04/16 13:18 [From Toradol] morphine AdvReac Itching Verified 06/04/16 13:18 Surgical - Exam Vital Signs Temp Pulse Resp BP Pulse Ox 98.1 F 92 22 90/54 86 L 06/04/16 12:55 06/04/16 12:55 06/04/16 12:55 06/04/16 12:55 06/04/16 12:55 Physical exam 46-year-old gentleman resting in bed appears stated age pleasant cooperative talkative oriented 3 states breathing feels improved. Denies cough. HEENT head is normocephalic mucous membranes moist no nasal drainage pupils equal neck is supple Lungs bilateral adequate air movement slightly diminished no wheezing noted no cough noted Heart S1-S2 audible regular no murmur denying chest pain Abdomen soft not distended no palpable organomegaly multiple well-healed scars on the abdominal wall no facial grimacing with palpitation to the abdominal wall no guarding no rigidity states no difficulty in urinating no frequent stooling Extremities upper and lower extremities no evidence of edema palpable peripheral pulse Skin warm and dry Results - Labs 06/04/16 13:36 06/07/16 08:08 Abnormal Lab Results - Last 24 Hours (Table) 06/07/16 06/07/16 Range/Units 08:08 08:08 PT 13.4 H (9.0-12.0) sec BUN 22 H (9-20) mg/dL Creatinine 1.29 H (0.66-1.25) mg/dL Diabetes panel 06/07/16 Range/Units 08:08 Sodium 143 (137-145) mmol/L Potassium 4.4 (3.5-5.1) mmol/L Chloride 105 (98-107) mmol/L Carbon Dioxide 27 (22-30) mmol/L BUN 22 H (9-20) mg/dL Creatinine 1.29 H (0.66-1.25) mg/dL Glucose 91 (74-99) mg/dL Calcium 9.1 (8.4-10.2) mg/dL Calcium panel 06/07/16 Range/Units 08:08 Calcium 9.1 (8.4-10.2) mg/dL Pituitary panel 06/07/16 Range/Units 08:08 Sodium 143 (137-145) mmol/L Potassium 4.4 (3.5-5.1) mmol/L Chloride 105 (98-107) mmol/L Carbon Dioxide 27 (22-30) mmol/L BUN 22 H (9-20) mg/dL Creatinine 1.29 H (0.66-1.25) mg/dL Glucose 91 (74-99) mg/dL Calcium 9.1 (8.4-10.2) mg/dL Adrenal panel 06/07/16 Range/Units 08:08 Sodium 143 (137-145) mmol/L Potassium 4.4 (3.5-5.1) mmol/L Chloride 105 (98-107) mmol/L Carbon Dioxide 27 (22-30) mmol/L BUN 22 H (9-20) mg/dL Creatinine 1.29 H (0.66-1.25) mg/dL Glucose 91 (74-99) mg/dL Calcium 9.1 (8.4-10.2) mg/dL Assessment and Plan Plan: Impression Present on admission shortness of breath likely due to left lower lobe pneumonia History of organ transplant involving the pancreas, stomach, duodenum, and small bowel in 2002 at the 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 This consultation has been discussed with Dr. carrillo. Impression and plan a care have been dictated as dictated
--- NOTE | 2016-06-07 14:24 | P.PN ---
Subjective This is a very pleasant 46-year-old gentleman who follows with Dr. Ras Zhao as his primary care physician. He has a history of previous history of small bowel pancreas duodenum and stomach transplant at the [facility] secondary to congenital defects and gastroparesis. 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 He also has a history of chronic obstructive pulmonary disease and paroxysmal atrial fibrillation. He presented here yesterday with complaints of left-sided chest pain. He had sustained a fall about 2 weeks ago. He developed increasing shortness of breath, cough and congestion. Left-sided chest pain with inhalation as well. He presented to the emergency room yesterday for the same. His initial chest x-ray did reveal left-sided infiltrate suspicious for pneumonia. He also has underlying chronic obstructive pulmonary disease. He does have a 30 year pack per day smoking history however quit approximately 4 years ago. He was found to be in atrial fibrillation with a rapid ventricular response requiring Cardizem drip. INR 1.7. White count 20.1. T-max 100.1. He initially was 86% on room air. He is seen again today 06/07/2016 in follow-up. He is awake and alert in no acute distress. He states he is breathing much easier today as compared to yesterday. The cultures show no growth to date. He is maintaining good O2 saturations in the 90s on room air. Current temperature 99.0. His creatinine is improving. Currently at 1.29. Objective - Vital Signs Vital signs: Vital Signs Temp 99.0 F 06/07/16 07:00 Pulse 79 06/07/16 07:00 Resp 16 06/07/16 07:00 BP 132/91 06/07/16 07:00 Pulse Ox 91 L 06/07/16 07:00 Intake & Output 06/06/16 06/07/16 06/07/16 18:59 06:59 18:59 Intake Total 200 500 Output Total 600 Balance 200 -600 500 Weight 96.5 kg Intake: Intake, IV Titration 100 Amount cefTRIAXone 2,000 mg In 100 Sodium Chloride 0.9% 100 ml @ 200 mls/hr IVPB Q24H [facility] Rx#:[id number] Oral 100 500 Output: Urine 600 Other: Voiding Method Urinal # Voids 0 - Exam GENERAL EXAM: Alert, comfortable in no apparent distress. HEAD: Normocephalic. EYES: Normal reaction of pupils, equal size. NOSE: Clear with pink turbinates. THROAT: No erythema or exudates. NECK: No masses, no JVD. CHEST: No chest wall deformity. LUNGS: Equal air entry with few scattered rhonchi, crackles in the left posterior base. CVS: S1 and S2 normal with no audible murmurs, irregular rhythm. ABDOMEN: No hepatosplenomegaly, normal bowel sounds, no guarding or rigidity. SPINE: No scoliosis or deformity SKIN: No rashes CENTRAL NERVOUS SYSTEM: No focal deficits, tone is normal in all 4 extremities. Extremities: There is no significant peripheral edema. No clubbing, no cyanosis. Peripheral pulses are intact. - Labs CBC & Chem 7: 06/04/16 13:36 06/07/16 08:08 Labs: Abnormal Lab Results - Last 24 Hours (Table) 06/07/16 06/07/16 Range/Units 08:08 08:08 PT 13.4 H (9.0-12.0) sec BUN 22 H (9-20) mg/dL Creatinine 1.29 H (0.66-1.25) mg/dL Assessment and Plan Plan: Impression: #1 Acute left lower lobe pneumonia, suspect community-acquired in an immunocompromised patient. #2 Atrial fibrillation with a rapid ventricular response, currently better controlled on a beta blockers and calcium channel blockers. #3 History of four organ transplant including pancreas, stomach, duodenum, and small bowel in 2002 at the [facility]. Maintained on Prograf and Zenpep. #4 Chronic obstructive pulmonary disease in a patient with a 30 year smoking history. Quit in 2011. #5 History of mesenteric vein graft thrombosis, maintained on warfarin. #6 Adrenal insufficiency initiated on Cortef. #7 Anemia of chronic disease. #8 Chronic pain syndrome. Plan: The patient was seen and evaluated by Dr. Redmond. The patient is improving from the pulmonary standpoint. We'll continue with his current medications including antibiotics in the form of ceftriaxone and bronchodilators. We will increase his activity as tolerated. We'll continue to follow make further recommendations based on his clinical status.
[2016-06-08] MEDS ORDERED: cefTRIAXone 2,000 MG in SODIUM CHLORIDE 0.9% 100 ML IVPB SCH (06:00)
--- NOTE | 2016-06-08 19:51 | DS ---
DATE OF ADMISSION: 06/04/2016 DATE OF DISCHARGE: 06/07/2016 FINAL DIAGNOSIS(ES): 1. Left lower lobe pneumonia community-acquired in an immunosuppressed patient suspect gram-negative organism, present on admission. 2. Paroxysmal atrial fibrillation with rapid ventricular rate on presentation back in sinus rhythm. 3. History of four organ transplant in 2002 including small bowel, pancreas, duodenum and stomach at the [facility]. 4. Acute renal failure; could be acute tubular necrosis from infection, present on admission, from underlying sepsis. 5. Chronic obstructive pulmonary disease in an ex-smoker. 6. Gastroesophageal reflux disease. 7. Gastroparesis. 8. Chronic mesenteric vein thrombosis. The patient on Coumadin. 9. Coumadin monitoring for therapeutic level. 10. Chronic ( ) insufficiency. 11. Anemia of chronic disease. CONSULTATIONS: Dr. Marc Worley from cardiology. Dr. Redmond from pulmonary. HOSPITAL COURSE: This patient presents with pneumonia. Blood culture was negative, but the time of discharge was afebrile, up and about in the hallway, feeling really well. On examination, lungs are clear. CARDIOVASCULAR: First and second seconds are normal. The patient advised against smoking. Patient also was in atrial fibrillation, ventricular sinus rhythm. Patient did have a 2-D echocardiogram shows preserved LV function. Care was discussed with the patient. DISCHARGE MEDICATIONS: 1. Calcium citrate. 2. Vitamin D3 1 tablet p.o. b.i.d. 3. Plavix 75 mg a day. 4. Iron 325 p.o. b.i.d. 5. Magnesium 500 mg p.o. b.i.d. 6. Methadone 5 mg p.o. b.i.d. 7. Lopressor 50 mg p.o. b.i.d. 8. Men's multivitamin 1 tablet p.o. daily. 9. Prilosec 40 mg p.o. b.i.d. 10. Zoloft 100 mg p.o. daily. 11. Prograf 1 mg p.o. q.h.s. 12. Prograf 2 mg a.c. before breakfast. 13. Flomax 0.4 mg p.o. daily. 14. Actigall 300 mg p.o. b.i.d. 15. Klonopin 0.5 mg p.o. b.i.d. 16. Pro-air 2 puffs q.4 p.r.n. 17. Vitamin D3 10,000 units p.o. daily. 18. Hydrocortisone 50 mg p.o. b.i.d. 19. ( ) 10 1 capsules p.o. b.i.d. 20. Reglan 10 mg p.o. b.i.d. 21. ( ) 25 mg p.o. q.h.s. 22. Zoloft 50 mg p.o. daily. 23. Zofran 4 mg p.o. t.i.d. 24. Colace 1 mg p.o. b.i.d. 25. Dilaudid 8 mg p.o. q.6 p.r.n. 26. Ceftin 500 mg p.o. b.i.d. 10 tablets. 27. Coumadin 3 mg p.o. daily. Follow-up with Dr. Zhao on 06/11/2016. LABS: CBC, BMP, INR in 3 days. Care was discussed with the patient.
== END 2016-06-07 15:36 | disposition home or self-care (01) | DRG 871 ==
LOC: EC 12:26 → 6SEL 15:49 → 4MS4W 06-06 21:35
PROVIDERS: ADMIT Hospitalist; ATTEND Hospitalist
DX: A41.9 Sepsis, unspecified organism (principal); J18.9 Pneumonia, unspecified organism; I81 Portal vein thrombosis; N17.9 Acute kidney failure, unspecified; E27.40 Unspecified adrenocortical insufficiency; J44.0 Chronic obstructive pulmonary disease with (acute) lower respiratory infection; S22.49XA Multiple fractures of ribs, unspecified side, initial encounter for closed fracture; I48.0 Paroxysmal atrial fibrillation; D63.8 Anemia in other chronic diseases classified elsewhere; K31.84 Gastroparesis; G89.4 Chronic pain syndrome; I34.0 Nonrheumatic mitral (valve) insufficiency; K21.9 Gastro-esophageal reflux disease without esophagitis; F32.9 Major depressive disorder, single episode, unspecified; F41.9 Anxiety disorder, unspecified; Z94.83 Pancreas transplant status; Z94.0 Kidney transplant status; Z79.01 Long term (current) use of anticoagulants; Z79.02 Long term (current) use of antithrombotics/antiplatelets; Z79.899 Other long term (current) drug therapy; Z88.5 Allergy status to narcotic agent; Z88.8 Allergy status to other drugs, medicaments and biological substances; Z86.14 Personal history of Methicillin resistant Staphylococcus aureus infection; Z87.891 Personal history of nicotine dependence; W19.XXXA Unspecified fall, initial encounter
CPT/HCPCS: 36415; 71020; 78582; 80048; 80053; 82550; 82553; 83880; 84484; 85025; 85379; 85610; 85730; 87040; 87502; 93005; 93306; 94644; 94760; 96361; 96365; 96366; 96367; 96375; 96376; 99285

== ENCOUNTER → 2016-07-06 | Outpatient (CLI) | payer MEDICARE, BC, OTHER ==
[2016-07-06 12:11] LABS: Calcium 8.8 mg/dL (8.4-10.2); Potassium 4.3 mmol/L (3.5-5.1); Total Bilirubin 0.3 mg/dL (0.2-1.3); Total Protein 7.2 g/dL (6.3-8.2)
[2016-07-06 12:45] LABS: Anisocytosis Slight; Aty Lym Flag Slight; CH 26.5; CHCM 28.4; HCT 38.6 % (39.0-53.0); HDW 3.14; HGB 11.3 gm/dL (13.0-17.5); Hypochromasia Marked; Large Platelets Flag Marked; MCH 27.3 pg (25.0-35.0); MCHC 29.2 g/dL (31.0-37.0); MCV 93.8 fL (80.0-100.0); Mean Platelet Volume 12.4; RBC 4.12 m/uL (4.30-5.90); RDW 16.4 % (11.5-15.5); WBC 10.2 k/uL (3.8-10.6); WBC (Perox) 12.16
[2016-07-06 13:52] LABS: Add Differential Manual Differential
[2016-07-06 13:57] LABS: Manual Review Performed; Nucleated Red Blood Cells 0 /100 WBC (0-0); Total Cells Counted 200
[2016-07-06 13:58] LABS: Large Platelets Present; Target Cells Present
[2016-07-06 13:59] LABS: Howell-Jolly Bodies Present
== END | disposition home or self-care (01) ==
LOC: LABWHC1 09:55
PROVIDERS: ATTEND Internal Medicine Gastroenterology
DX: K85.90 Acute pancreatitis without necrosis or infection, unspecified (principal); R94.5 Abnormal results of liver function studies
CPT/HCPCS: 36415; 80053; 85025

== ENCOUNTER 2016-08-02 13:36 | Inpatient (IN) | payer MEDICARE, BC, OTHER ==
[2016-08-02] MEDS ORDERED: IPRATROPIUM-ALBUTEROL 3 ML NEB INHALATION STA (14:19)
[2016-08-02] MEDS ORDERED: SODIUM CHLORIDE 0.9% 1,000 ML IV STA (14:19)
[2016-08-02] MEDS ORDERED: ACETAMINOPHEN TAB 500 MG TAB PO STA (14:20)
--- NOTE | 2016-08-02 14:22 | ED ---
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 He's saws . 2 days ago was placed on oral antibiotics is getting worse not better is scheduled shortness of breath cough or phlegm production is chronic abdominal pain surgery site. He just generally doesn't feel well. MD Complaint: shortness of breath, cough - Related Data Home Medications Medication Instructions Recorded Confirmed Calcium Citrate/Vitamin D3 1 tab PO BID 09/02/13 08/02/16 [Calcium Citrate - Vit D3 Tab] Clopidogrel [Plavix] 75 mg PO QAM 09/02/13 08/02/16 Ferrous Gluconate 325 mg PO BID 09/02/13 08/02/16 Magnesium Gluconate [Magonate] 500 mg PO BID 09/02/13 08/02/16 Metoprolol Tartrate [Lopressor] 50 mg PO BID 09/02/13 08/02/16 Multivitamin [Men's Multi-Vitamin] 1 tab PO QAM 09/02/13 08/02/16 Omeprazole [PriLOSEC] 40 mg PO AC-BID 09/02/13 08/02/16 Sertraline [Zoloft] 100 mg PO QAM 09/02/13 08/02/16 Tacrolimus [Prograf] 1 mg PO HS 09/02/13 08/02/16 Tacrolimus [Prograf] 2 mg PO AC-BRKFST 09/02/13 08/02/16 Tamsulosin HCl [Flomax] 0.4 mg PO HS 09/02/13 08/02/16 Ursodiol [Actigall] 300 mg PO BID 09/02/13 08/02/16 clonazePAM [KlonoPIN] 0.5 mg PO BID 09/02/13 08/02/16 Albuterol Sulfate [Proair 2 puff PO RT-Q4H PRN 09/22/15 08/02/16 Respiclick] Cholecalciferol (Vitamin D3) 10,000 unit PO QAM 06/02/16 04/13/17 [Vitamin D3] Hydrocortisone 15 mg PO BID 09/22/15 08/02/16 Ckucig-Uxcprduw-Mgtirsh [Zenpep 10] 1 cap PO BID 09/22/15 08/02/16 Metoclopramide [Reglan] 10 mg PO BID 09/22/15 08/02/16 Sertraline [Zoloft] 50 mg PO QAM 09/22/15 08/02/16 Warfarin [Coumadin] 3 mg PO DAILY 06/07/16 08/02/16 Budesonide-Formot 160-4.5 Mcg 2 puff PO RT-BID 08/02/16 08/02/16 [Symbicort 160-4.5 Mcg Inhaler] Methadone HCl [Methadone HCl] 10 mg PO BID 08/02/16 08/02/16 Sulfamethoxazole/Trimethoprim 0.5 tab PO MOWEFR 08/02/16 08/02/16 [Bactrim DS 800-160 mg] Previous Rx's Medication Instructions Recorded Ondansetron HCl [Zofran] 4 mg PO TID #30 tablet 04/03/16 Docusate [Colace] 100 mg PO BID cap 04/27/16 Allergies Allergy/AdvReac Type Severity Reaction Status Date / Time heparin Allergy Unknown Verified 08/02/16 14:41 ketorolac tromethamine AdvReac migraines Verified 08/02/16 14:41 [From Toradol] morphine AdvReac Itching Verified 08/02/16 14:41 Review of Systems ROS Statement: Those systems with pertinent positive or pertinent negative responses have been documented in the HPI. ROS Other: All systems not noted in ROS Statement are negative. 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, gastritis, gastroparesis, pt regurgitates after eating , past pancreatitis, adrenal insufficiency, chronic anemia, tracheobronchitis, pt stated stool is always on the loose side.BRONCHITIS History of Any Multi-Drug Resistant Organisms: MRSA Date of last positivie culture/infection: 2002 MDRO Source:: unknown Additional Past Surgical History / Comment(s): STATES MULTIPLE STOMACH SX, 2003 HAD 4 ORGAN TRANSPLANT: SMALL BOWEL, PANCREAS, duodenum, AND STOMACH performed at the [facility], L knee surgical repair after injury on a barbed wire fence, as he had heart surgery for closed valves, EGDs and colonoscopies with last EGD 08/08/15. Past Anesthesia/Blood Transfusion Reactions: No Reported Reaction Additional Past Anesthesia/Blood Transfusion Reaction / Comment(s): STATES R/T TO MULTIPLE SX HE REQUIRES A LOT OF MEDICATION for anesthesia. He has had multiple blood transfusions without reaction. Past Psychological History: Anxiety, Depression Additional Psychological History / Comment(s): Pt resides with his significant other. He is independent. He drives. Smoking Status: Former smoker Past Alcohol Use History: None Reported Additional Past Alcohol Use History / Comment(s): Started smoking about 1981 and quit in 2011 Past Drug Use History: None Reported - Past Family History Mother History Unknown: Yes Additional Family Medical History / Comment(s): pt is adopted, does not know any hx Father History Unknown: Yes Additional Family Medical History / Comment(s): pt is adopted, does not know any hx General Exam - General Exam Comments Initial Comments: Is a well-developed well-nourished awake alert oriented x 3 male Limitations: no limitations General appearance: alert, in no apparent distress Head exam: Present: atraumatic, normocephalic, normal inspection Eye exam: Present: normal appearance, PERRL, EOMI. Absent: scleral icterus, conjunctival injection, periorbital swelling ENT exam: Present: mucous membranes dry Neck exam: Present: normal inspection. Absent: tenderness, meningismus, lymphadenopathy Respiratory exam: Present: decreased breath sounds. Absent: respiratory distress, wheezes, rales, rhonchi, stridor Cardiovascular Exam: Present: regular rate, normal rhythm, normal heart sounds. Absent: systolic murmur, diastolic murmur, rubs, gallop, clicks GI/Abdominal exam: Present: soft, normal bowel sounds. Absent: distended, tenderness, guarding, rebound, rigid Extremities exam: Present: normal inspection, full ROM, normal capillary refill. Absent: tenderness, pedal edema, joint swelling, calf tenderness Back exam: Present: normal inspection Neurological exam: Present: alert, oriented X3, CN II-XII intact Psychiatric exam: Present: normal affect, normal mood Skin exam: Present: warm, dry, intact, normal color. Absent: rash Course Vital Signs 08/02/16 08/02/16 08/02/16 13:38 14:41 15:25 Temperature 102.7 F H 102.5 F H Pulse Rate 73 83 82 Respiratory 16 18 18 Rate Blood Pressure 92/48 112/58 92/54 O2 Sat by Pulse 93 L 94 L 96 Oximetry 08/02/16 08/02/16 15:26 15:40 Temperature Pulse Rate 86 85 Respiratory Rate Blood Pressure O2 Sat by Pulse Oximetry Medical Decision Making - Medical Decision Making I did discuss findings with the patient he will be admitted for inpatient treatment and outpatient failure consultation by Dr. Duarte. - Lab Data Result diagrams: 08/02/16 14:07 08/02/16 14:07 Lab Results 08/02/16 08/02/16 08/02/16 Range/Units 14:07 14:07 14:07 WBC 10.5 (3.8-10.6) k/uL RBC 3.73 L (4.30-5.90) m/uL Hgb 10.3 L (13.0-17.5) gm/dL Hct 34.8 L (39.0-53.0) % MCV 93.1 (80.0-100.0) fL MCH 27.5 (25.0-35.0) pg MCHC 29.6 L (31.0-37.0) g/dL RDW 16.9 H (11.5-15.5) % Plt Count 132 L (150-450) k/uL Neutrophils % 54 % Lymphocytes % 34 % Monocytes % 8 % Eosinophils % 1 % Basophils % 1 % Neutrophils # 5.6 (1.3-7.7) k/uL Lymphocytes # 3.5 (1.0-4.8) k/uL Monocytes # 0.8 (0-1.0) k/uL Eosinophils # 0.1 (0-0.7) k/uL Basophils # 0.1 (0-0.2) k/uL Large Platelets Present Hypochromasia Marked Anisocytosis Slight Sodium 140 (137-145) mmol/L Potassium 4.3 (3.5-5.1) mmol/L Chloride 98 (98-107) mmol/L Carbon Dioxide 31 H (22-30) mmol/L Anion Gap 11 mmol/L BUN 23 H (9-20) mg/dL Creatinine 2.26 H (0.66-1.25) mg/dL Est GFR (MDRD) Af Amer 38 (>60 ml/min/1.73 sqM) Est GFR (MDRD) Non-Af 31 (>60 ml/min/1.73 sqM) Glucose 107 H (74-99) mg/dL Plasma Lactic Acid Barrie 1.8 (0.7-2.0) mmol/L Calcium 9.3 (8.4-10.2) mg/dL Magnesium (1.6-2.3) mg/dL Total Bilirubin 0.4 (0.2-1.3) mg/dL AST 28 (17-59) U/L ALT 25 (21-72) U/L Alkaline Phosphatase 79 (38-126) U/L Total Protein 7.2 (6.3-8.2) g/dL Albumin 3.8 (3.5-5.0) g/dL Urine Color Urine Appearance (Clear) Urine pH (5.0-8.0) Ur Specific [place] (1.001-1.035) Urine Protein (Negative) Urine Glucose (UA) (Negative) Urine Ketones (Negative) Urine Blood (Negative) Urine Nitrite (Negative) Urine Bilirubin (Negative) Urine Urobilinogen (<2.0) mg/dL Ur Leukocyte Esterase (Negative) Urine RBC (0-5) /hpf Urine WBC (0-5) /hpf Ur Squamous Epith Cells (0-4) /hpf Hyaline Casts (0-2) /lpf Urine Mucus (None) /hpf 08/02/16 08/02/16 Range/Units 14:07 16:45 WBC (3.8-10.6) k/uL RBC (4.30-5.90) m/uL Hgb (13.0-17.5) gm/dL Hct (39.0-53.0) % MCV (80.0-100.0) fL MCH (25.0-35.0) pg MCHC (31.0-37.0) g/dL RDW (11.5-15.5) % Plt Count (150-450) k/uL Neutrophils % % Lymphocytes % % Monocytes % % Eosinophils % % Basophils % % Neutrophils # (1.3-7.7) k/uL Lymphocytes # (1.0-4.8) k/uL Monocytes # (0-1.0) k/uL Eosinophils # (0-0.7) k/uL Basophils # (0-0.2) k/uL Large Platelets Hypochromasia Anisocytosis Sodium (137-145) mmol/L Potassium (3.5-5.1) mmol/L Chloride (98-107) mmol/L Carbon Dioxide (22-30) mmol/L Anion Gap mmol/L BUN (9-20) mg/dL Creatinine (0.66-1.25) mg/dL Est GFR (MDRD) Af Amer (>60 ml/min/1.73 sqM) Est GFR (MDRD) Non-Af (>60 ml/min/1.73 sqM) Glucose (74-99) mg/dL Plasma Lactic Acid Barrie (0.7-2.0) mmol/L Calcium (8.4-10.2) mg/dL Magnesium 1.9 (1.6-2.3) mg/dL Total Bilirubin (0.2-1.3) mg/dL AST (17-59) U/L ALT (21-72) U/L Alkaline Phosphatase (38-126) U/L Total Protein (6.3-8.2) g/dL Albumin (3.5-5.0) g/dL Urine Color Yellow Urine Appearance Clear (Clear) Urine pH 5.5 (5.0-8.0) Ur Specific [place] 1.024 (1.001-1.035) Urine Protein 1+ H (Negative) Urine Glucose (UA) Negative (Negative) Urine Ketones Negative (Negative) Urine Blood Negative (Negative) Urine Nitrite Negative (Negative) Urine Bilirubin Negative (Negative) Urine Urobilinogen <2.0 (<2.0) mg/dL Ur Leukocyte Esterase Negative (Negative) Urine RBC 1 (0-5) /hpf Urine WBC 1 (0-5) /hpf Ur Squamous Epith Cells 1 (0-4) /hpf Hyaline Casts 54 H (0-2) /lpf Urine Mucus Rare H (None) /hpf - Radiology Data Radiology results: report reviewed (I did review the x-ray report evidence of a possible left upper lobe mass pneumonia was not mentioned though there is some evidence of scarring in the right lower lobe.), image reviewed Disposition Clinical Impression: Acute exacerbation of chronic obstructive airways disease, Adult respiratory distress syndrome, Bronchitis, Renal insufficiency, Dehydration, History of intestine transplant, Febrile illness, acute, Failure of outpatient treatment Disposition: ADMITTED IP TO THIS HOSP Condition: Stable
[2016-08-02 14:25] LABS: Anisocytosis Slight; Basophils # (A) 0.1 k/uL (0-0.2); Basophils % (A) 1 %; CH 26.6; CHCM 28.7; Eosinophils # (A) 0.1 k/uL (0-0.7); Eosinophils % (A) 1 %; HCT 34.8 % (39.0-53.0); HDW 3.01; HGB 10.3 gm/dL (13.0-17.5); Hypochromasia Marked; Large Platelets Flag Marked; Luc # (Auto) 0.38; Luc % (Auto) 4; Lymphocytes # (A) 3.5 k/uL (1.0-4.8); Lymphocytes % (A) 34 %; MCH 27.5 pg (25.0-35.0); MCHC 29.6 g/dL (31.0-37.0); MCV 93.1 fL (80.0-100.0); Monocytes # (A) 0.8 k/uL (0-1.0); Monocytes % (A) 8 %; Neutrophils # (A) 5.6 k/uL (1.3-7.7); Neutrophils % (A) 54 %; RBC 3.73 m/uL (4.30-5.90); RDW 16.9 % (11.5-15.5); WBC 10.5 k/uL (3.8-10.6); WBC (Perox) 11.29
[2016-08-02 14:30] LABS: Calcium 9.3 mg/dL (8.4-10.2); Potassium 4.3 mmol/L (3.5-5.1); Total Bilirubin 0.4 mg/dL (0.2-1.3); Total Protein 7.2 g/dL (6.3-8.2)
--- NOTE | 2016-08-02 14:34 | XR ---
EXAMINATION TYPE: XR chest 2V DATE OF EXAM: 08/02/2016 2:28 PM COMPARISON: 06/05/2016 TECHNIQUE: PA and lateral views submitted. HISTORY: Shortness of breath FINDINGS: Hyperinflation suggests COPD. The heart is enlarged. No pleural effusion or pneumothorax. Deformities involving the anterior left rib cage are again seen. Question a nodular density in the left suprahil ar region measuring 1.5 cm. IMPRESSION: 1. Recommend CT of the chest for possible left upper lobe pulmonary mass. 2. Chronic left rib deformities are 3 correlate for COPD
[2016-08-02] MEDS ORDERED: HYDROmorphone 1 MG/ML 1 ML SYRINGE IVP STA (15:16)
[2016-08-02] MEDS ORDERED: ONDANSETRON 4 MG/2 ML VIAL IVP STA (15:16)
[2016-08-02 15:25] LABS: Large Platelets Present
[2016-08-02 17:07] LABS: Appearance,Urine Clear (Clear); Bilirubin,Urine Negative (Negative); Glucose,Urine (UA) Negative (Negative); Ketones,Urine Negative (Negative); Leukocyte Esterase,Urine Negative (Negative); Mucus,Urine Rare /hpf; Nitrite,Urine Negative (Negative); PH, Urine 5.5 (5.0-8.0); Particle Count 3991; Protein,Urine 1+ (Negative); RBC,Urine 1 /hpf (0-5); Specific Gravity,Urine 1.024 (1.001-1.035); Squamous Epithelial Cell,Urine 1 /hpf (0-4); UA Billing (MACRO vs. MICRO) MICRO; Urobilinogen,Urine <2.0 mg/dL (<2.0); WBC,Urine 1 /hpf (0-5)
[2016-08-02] MEDS: methylPREDNISolone SOD SUCCI 125 MG/2 ML VIAL IV SCH ×2 (18:25→20:47)
[2016-08-02] MEDS: HYDROmorphone 1 MG/ML 1 ML SYRINGE IVP PRN (18:47)
[2016-08-02 18:58] LABS: INR 1.6 (<1.1); Prothrombin Time 15.4 sec (9.0-12.0)
[2016-08-02] MEDS: IPRATROPIUM-ALBUTEROL 3 ML NEB INHALATION SCH ×2 (19:44→20:37)
[2016-08-02] MEDS ORDERED: IPRATROPIUM-ALBUTEROL 3 ML NEB INHALATION PRN (20:41)
[2016-08-02] MEDS: URSODIOL 300 MG CAP PO SCH (20:49)
[2016-08-02] MEDS: METOCLOPRAMIDE 10 MG TAB PO SCH (20:49)
[2016-08-02] MEDS: MAGNESIUM OXIDE 400 MG TAB PO SCH (20:49)
[2016-08-02] MEDS: TAMSULOSIN 0.4 MG CAP.ER.24H PO SCH (20:49)
[2016-08-02] MEDS: DOCUSATE 100 MG CAP PO SCH (20:49)
[2016-08-02] MEDS: TACROLIMUS 1 MG CAP PO SCH (20:49)
[2016-08-02] MEDS: LIPASE 5,000/PROTEASE 17,000/AMYLASE 27,0000 PO SCH (20:50)
[2016-08-02] MEDS: METOPROLOL TARTRATE 50 MG TAB PO SCH (20:51)
[2016-08-02] MEDS ORDERED: IV VANCOMYCIN PER PHARMACY 1 EACH MISC MISCELLANE PRN (21:55)
[2016-08-02] MEDS ORDERED: VANCOMYCIN 1,750 MG in SODIUM CHLORIDE 0.9% 250 ML IVPB STA (21:59)
--- NOTE | 2016-08-02 22:37 | P.CNPUL ---
History of Present Illness Consult date: 08/02/16 Requesting physician: Angel Swanson Reason for consult: pneumonia Chief complaint: Cough shortness of breath wheezing History of present illness: This is a 46-year-old white male, smoker, history of transplant of the stomach, small bowel, pancreas in 2002 in [place]. 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 Patient has been complaining of cough wheezing shortness of breath for the last 2 weeks, and he received so far 2 courses of Levaquin by his primary care physician, but has not been improving. Follow-up chest x-ray showed worsening pneumonia involving both lungs, hence patient was advised to go to the ER for admission. Chest x-ray upon admission showed deformities involving the anterior left rib cage right lower lobe infiltrate was strongly suspected, and left lower lobe nodular infiltrate was also suspected. Considering the patient is immunocompromised, patient was admitted, and this consult was initiated. On the chest x-ray I have noted slight fullness of the mediastinum also. In addition to cough wheezing and shortness of breath, patient has been complaining of low-grade fever, no hemoptysis, no chest pain. Review of Systems 14 point review of systems were obtained, please refer to pertinent positives and negatives as per HPI. 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, gastritis, gastroparesis, pt regurgitates after eating , past pancreatitis, adrenal insufficiency, chronic anemia, tracheobronchitis, pt stated stool is always on the loose side.BRONCHITIS History of Any Multi-Drug Resistant Organisms: MRSA Date of last positivie culture/infection: 2002 MDRO Source:: unknown Additional Past Surgical History / Comment(s): STATES MULTIPLE STOMACH SX, 2002 HAD 4 ORGAN TRANSPLANT: SMALL BOWEL, PANCREAS, duodenum, AND STOMACH performed at the [facility], knee surgical repair after injury on a barbed wire fence, as he had heart surgery for closed valves, EGDs and colonoscopies with last EGD 08/08/15. Past Anesthesia/Blood Transfusion Reactions: No Reported Reaction Additional Past Anesthesia/Blood Transfusion Reaction / Comment(s): STATES R/T TO MULTIPLE SX HE REQUIRES A LOT OF MEDICATION for anesthesia. He has had multiple blood transfusions without reaction. Past Psychological History: Anxiety, Depression Additional Psychological History / Comment(s): Pt resides with his significant other. He is independent. He drives. Smoking Status: Former smoker Past Alcohol Use History: None Reported Additional Past Alcohol Use History / Comment(s): Started smoking about 1981 and quit in 2011 Past Drug Use History: None Reported - Past Family History Mother History Unknown: Yes Additional Family Medical History / Comment(s): pt is adopted, does not know any hx Father History Unknown: Yes Additional Family Medical History / Comment(s): pt is adopted, does not know any hx Medications and Allergies Home Medications Medication Instructions Recorded Confirmed Type Calcium Citrate/Vitamin D3 1 tab PO BID 09/02/13 08/02/16 History [Calcium Citrate - Vit D3 Tab] Clopidogrel [Plavix] 75 mg PO QAM 09/02/13 08/02/16 History Ferrous Gluconate 325 mg PO BID 09/02/13 08/02/16 History Magnesium Gluconate [Magonate] 500 mg PO BID 09/02/13 08/02/16 History Metoprolol Tartrate [Lopressor] 50 mg PO BID 09/02/13 08/02/16 History Multivitamin [Men's Multi-Vitamin] 1 tab PO QAM 09/02/13 08/02/16 History Omeprazole [PriLOSEC] 40 mg PO AC-BID 09/02/13 08/02/16 History Sertraline [Zoloft] 100 mg PO QAM 09/02/13 08/02/16 History Tacrolimus [Prograf] 1 mg PO HS 09/02/13 08/02/16 History Tacrolimus [Prograf] 2 mg PO AC-BRKFST 09/02/13 08/02/16 History Tamsulosin HCl [Flomax] 0.4 mg PO HS 09/02/13 08/02/16 History Ursodiol [Actigall] 300 mg PO BID 09/02/13 08/02/16 History clonazePAM [KlonoPIN] 0.5 mg PO BID 09/02/13 08/02/16 History Albuterol Sulfate [Proair 2 puff PO RT-Q4H PRN 09/22/15 08/02/16 History Respiclick] Cholecalciferol (Vitamin D3) 10,000 unit PO QAM 09/22/15 08/02/16 History [Vitamin D3] Hydrocortisone 15 mg PO BID 09/22/15 08/02/16 History Nzodde-Qbkmquqt-Xkzdaip [Zenpep 10] 1 cap PO BID 09/22/15 08/02/16 History Metoclopramide [Reglan] 10 mg PO BID 09/22/15 08/02/16 History Sertraline [Zoloft] 50 mg PO QAM 09/22/15 08/02/16 History Warfarin [Coumadin] 3 mg PO DAILY 06/07/16 08/02/16 History Budesonide-Formot 160-4.5 Mcg 2 puff PO RT-BID 08/02/16 08/02/16 History [Symbicort 160-4.5 Mcg Inhaler] Methadone HCl [Methadone HCl] 10 mg PO BID 08/02/16 08/02/16 History Sulfamethoxazole/Trimethoprim 0.5 tab PO MOWEFR 08/02/16 08/02/16 History [Bactrim DS 800-160 mg] Allergies Allergy/AdvReac Type Severity Reaction Status Date / Time heparin Allergy Unknown Verified 08/02/16 14:41 ketorolac tromethamine AdvReac migraines Verified 08/02/16 14:41 [From Toradol] morphine AdvReac Itching Verified 08/02/16 14:41 Physical Exam Vitals: Vital Signs Temp Pulse Resp BP BP Pulse Ox 08/02/16 21:07 16 96 08/02/16 20:45 84 08/02/16 20:44 16 107/53 96 08/02/16 20:37 79 08/02/16 20:00 99.0 F 16 119/55 94 L 08/02/16 18:24 99.0 F 99 20 112/53 96 08/02/16 18:08 16 121/61 93 L Intake and Output 08/02/16 08/02/16 08/02/16 06:59 14:59 22:59 Intake Total 750 Balance 750 Intake: Intake, IV Titration 750 Amount Sodium Chloride 0.9% 1, 750 000 ml @ 75 mls/hr IV . [id number] STA Rx#:[id number] Other: Weight 96.5 kg Patient Weight 08/03/16 06:59 Weight 96.5 kg Physical Exam: Revealed a 46-year-old white male in no distress, patient looks comfortable and he is presently on a nonrebreather mask. HEENT:[Neck is supple.] [No neck masses.] [No thyromegaly.] [No JVD.] Chest: [Diffuse crackles and rhonchi and wheezes noted bilaterally.] Cardiac Exam: [Normal S1 and S2, no S3 gallop, no murmur.] Abdomen: [Multiple surgical scars noted throughout the abdomen otherwise Soft, nontender, no megaly, no rebound, no guarding, normal bowel sounds.] Extremities: Positive clubbing, no edema, no cyanosis.] Neurological Exam: [No focal neurologic deficit.] Results - Laboratory Findings CBC and BMP: 08/02/16 14:07 08/02/16 14:07 PT/INR, D-dimer PT 15.4 sec (9.0-12.0) H 08/02/16 13:56 INR 1.6 (<1.1) 08/02/16 13:56 - Diagnostic Findings Chest x-ray: image reviewed (Chest x-ray is suspicious for nodular infiltrate involving the right lower lobe and some infiltrate in the left retrocardiac area.) Assessment and Plan Plan: Impression: 1 Acute exacerbation of COPD 2 acute right lower lobe pneumonia is strongly suspected, considering the patient is immunocompromised, and did not respond to different courses of antibiotics given on outpatient basis, patient will need to be placed on broad- spectrum empiric antibiotics coverage and it doesn't improve will definitely need bronchoscopy and BAL for diagnosis. 3 history of stomach small bowel and pancreatic transplant, patient is on immunosuppressive therapy 4 suspect chronic renal failure, creatinine is 2.26, no baseline for comparison. 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 Recommendation: Patient will be placed on bronchodilators, broad-spectrum antibiotics, steroids, we'll continue his cardiac meds including Coumadin and Plavix titrate O2 to keep saturation above 90%, resume his home meds including Prograf and Bactrim. Patient was evaluated and he was transferred [facility] monitoring. Bronchoscopy would have to be seriously considered if the patient doesn't show much improvement in the next couple of days. Time with Patient: Greater than 30
[2016-08-03] MEDS ORDERED: HYDROmorphone 1 MG/ML 1 ML SYRINGE ONE (04:40)
[2016-08-03] MEDS: clonazePAM 0.5 MG TAB PO SCH ×3 (05:15→22:06)
[2016-08-03] MEDS: METHADONE 10 MG TAB PO SCH ×3 (05:15→22:05)
[2016-08-03] MEDS: PIPERACILLIN-TAZOBACTAM 3.375 GM in DEXTROSE/WATER 1 50ML.BAG IVPB SCH ×3 (05:16→16:53)
[2016-08-03] MEDS: ONDANSETRON 4 MG TAB PO SCH ×4 (05:16→21:59)
[2016-08-03] MEDS: HYDROmorphone 1 MG/ML 1 ML SYRINGE IVP PRN ×5 (05:24→21:51)
[2016-08-03 06:26] LABS: Glucose,Whole Blood 189 mg/dL (75-99)
[2016-08-03] MEDS: methylPREDNISolone SOD SUCCI 125 MG/2 ML VIAL IV SCH ×2 (06:36→12:41)
[2016-08-03] MEDS: INSULIN LISPRO (humaLOG) 300 UNIT/3 ML VIAL SQ SCH ×4 (06:36→21:59)
[2016-08-03] MEDS: TACROLIMUS 1 MG CAP PO SCH ×2 (06:37→22:20)
[2016-08-03] MEDS: PANTOPRAZOLE 40 MG TABLET PO SCH ×2 (06:37→16:55)
[2016-08-03 06:50] LABS: Anisocytosis Slight; Basophils % (A) 0 %; Hypochromasia Marked; Large Platelets Flag Marked; Luc # (Auto) 0.11
[2016-08-03 06:58] LABS: INR 1.5 (<1.1); Prothrombin Time 14.7 sec (9.0-12.0)
[2016-08-03 06:59] LABS: CH 26.9; CHCM 28.2; Eosinophils % (A) 0 %; HCT 34.8 % (39.0-53.0); HDW 2.93; Luc % (Auto) 2; Lymphocytes # (A) 1.4 k/uL (1.0-4.8); Lymphocytes % (A) 21 %; MCH 27.6 pg (25.0-35.0); MCHC 28.7 g/dL (31.0-37.0); Macrocytosis Slight; Mean Platelet Volume 14.2; Monocytes # (A) 0.1 k/uL (0-1.0); Monocytes % (A) 2 %; Neutrophils # (A) 5.2 k/uL (1.3-7.7); Neutrophils % (A) 76 %; RBC 3.63 m/uL (4.30-5.90); WBC 6.8 k/uL (3.8-10.6); WBC (Perox) 7.61
--- NOTE | 2016-08-03 06:59 | HP ---
DATE OF ADMISSION: 08/02/2016 PRESENTING COMPLAINT: Cough, short of breath. HISTORY OF PRESENTING COMPLAINT: This is a pleasant 46-year-old patient of Dr. Zhao with extensive medical history. Patient had an intestinal tract obstruction from congenital defect and had multiple visceral transplant in [place] including mesenteric vein graft, mesenteric graft thrombosis and also had gastroparesis. Other stable medical conditions include adrenal insufficiency, chronic anemia. Patient also had a 4 organ transplant in 2002 including small bowel, pancreas, duodenum and stomach at [place]. Patient also had cardiac surgery for ( ) valve. Patient at a baseline has about 3 to 4 bowel movements a day. Patient has been treated by his family doctor, Dr. Zhao, for pneumonia. Has had 2 rounds of Levaquin and also got an IV antibiotic shot, not getting better, cough, sputum production, short of breath, wheezing. It may be noted that patient is a smoker. Hence, he came in. Appetite is gone. Patient is rundown and tired. REVIEW OF SYSTEMS: CONSTITUTIONAL: Weak, tired, fever. HEENT: As above. RESPIRATORY: As above. CARDIOVASCULAR: None. GASTROINTESTINAL: Chronic diarrhea. GENITOURINARY: None. MUSCULOSKELETAL: None. DERMATOLOGICAL: Chronic skin changes. HEMATOLOGICAL: None. LYMPHATICS: None. PSYCHIATRY: Some depression. NEUROLOGICAL: None. Past medical history of atrial fibrillation, COPD, GERD, congenital defect of the intestinal tract obstruction including multiple visceral organ transplant including small bowel, pancreas, duodenum and stomach at the [facility] in 2002. Also patient had mesenteric vein graft thrombosis, gastritis, gastroparesis, adrenal insufficiency, chronic anemia. Additional surgical history includes left knee surgical repair after barbed wire fence and heart surgery as before. SOCIAL HISTORY: The patient lives with significant other. Patient been smoking for a long time, still doing a few cigarettes a day. FAMILY HISTORY: Patient is adopted. HOME MEDICATIONS: 1. Methadone 10 mg p.o. b.i.d. 2. Klonopin 0.5 mg p.o. b.i.d. 3. Coumadin 3 mg p.o. daily. 4. Actigall 300 mg p.o. b.i.d. 5. Flomax 0.4 mg q.h.s. 6. Prograf 2 mg with breakfast, 1 mg at night. 7. Bactrim DS 1/2 tablet Saturday, Saturday and Saturday. 8. Zoloft 50 mg p.o. daily. 9. Zoloft 100 mg p.o. in the morning. 10. Zofran 4 mg t.i.d. 11. Prilosec 40 mg p.o. b.i.d. 12. Men's multivitamin 1 tablet p.o. daily. 13. Lopressor 50 mg p.o. b.i.d. 14. Reglan 10 mg p.o. b.i.d. 15. Magnesium 500 mg p.o. b.i.d. 16. Zenpep 10 one capsule p.o. b.i.d. 17. Hydrocortisone 15 mg p.o. b.i.d. 18. Iron 325 mg p.o. b.i.d. 19. Colace 100 mg p.o. b.i.d. 20. Plavix 75 mg p.o. daily. 21. Vitamin D3, 10,000 units p.o. daily. 22. Calcium with vitamin D 1 tablet p.o. b.i.d. 23. Symbicort 160/4.5 two puffs b.i.d. 24. ProAir 2 puffs q.4 p.r.n. Allergies to HEPARIN TORADOL, MORPHINE. ON EXAMINATION: VITAL SIGNS ON PRESENTATION: Temperature on 102.7, pulse 73, respiration 16, blood pressure 92/48, pulse ox 93% on 3 L. GENERAL APPEARANCE: Well built, lying in bed, tired appearing. EYES: Pupils equal. Conjunctivae normal. HENT: Oral cavity normal. NECK: JVD not raised. Mass not palpable. RESPIRATORY: Effort increased. LUNGS: Diminished breath sounds. Prolonged expiration wheezing, coarse crackles in the right side. CARDIOVASCULAR: First and second sounds normal. No edema. ABDOMEN: Multiple scars. Liver and spleen not palpable. No tenderness. LYMPHATIC: No lymph nodes palpable in the neck or axillae. PSYCHIATRY: Alert and oriented x3. Mood and affect anxious appearing. NEUROLOGICAL: Pupils equal. Cranial nerves grossly intact. Power and sensation grossly intact. INVESTIGATIONS: White count 10.5, hemoglobin 10.3, platelets 132. Potassium 4.3, BUN 23, creatinine 2.26. Patient's BUN and creatinine 22 and 1.29 on 06/07/16. Chest x-ray shows bilateral infiltrates. ASSESSMENT: 1. Acute bilateral pneumonia, multilobar, suspect gram-negative organism having failed outpatient treatment in an immunosuppressed patient. 2. Acute chronic obstructive pulmonary disease exacerbation in a smoker 3. Four organ transplant in 2002 including small bowel, pancreas, duodenum, stomach, being followed at [facility]. 4. Acute renal failure, could be acute tubular necrosis or prerenal including that from sepsis. 5. Gastroesophageal reflux disease. 6. Chronic gastroparesis. 7. Chronic mesenteric vein thrombosis for which patient is on Coumadin. 8. Chronic adrenal insufficiency. 9. Anemia of chronic disease. 10. Thrombocytopenia, could be from sepsis. 11. Chronic nicotine dependence. Patient is a smoker. PLAN: Patient was started on nebulized bronchodilator. Home medications are resumed. Patient is also put on IV Solu-Medrol. IV Zosyn and vancomycin. Coumadin will be continued. Dr. Duarte from pulmonary was consulted. Sputum will be sent for Gram stain and culture. Patient advised against smoking.
[2016-08-03 07:09] LABS: Calcium 8.6 mg/dL (8.4-10.2); Potassium 5.5 mmol/L (3.5-5.1)
[2016-08-03] MEDS ORDERED: VANCOMYCIN 1,500 MG in SODIUM CHLORIDE 0.9% 250 ML IVPB SCH (08:00)
[2016-08-03] MEDS: CLOPIDOGREL 75 MG TAB PO SCH (08:19)
[2016-08-03] MEDS: SERTRALINE 100 MG TAB PO SCH (08:20)
[2016-08-03] MEDS: MAGNESIUM OXIDE 400 MG TAB PO SCH ×2 (08:20→21:59)
[2016-08-03] MEDS: URSODIOL 300 MG CAP PO SCH ×2 (08:20→21:59)
[2016-08-03] MEDS: LIPASE 5,000/PROTEASE 17,000/AMYLASE 27,0000 PO SCH ×2 (08:20→21:59)
[2016-08-03] MEDS: DOCUSATE 100 MG CAP PO SCH ×3 (08:21→21:58)
[2016-08-03] MEDS: CHOLECALCIFEROL 1,000 UNIT TAB PO SCH (08:21)
[2016-08-03] MEDS: METOPROLOL TARTRATE 50 MG TAB PO SCH ×2 (08:21→21:59)
[2016-08-03] MEDS: LEVOFLOXACIN 500 MG TAB PO SCH (08:21)
[2016-08-03] MEDS: SERTRALINE 50 MG TAB PO SCH (08:22)
[2016-08-03] MEDS: IPRATROPIUM-ALBUTEROL 3 ML NEB INHALATION SCH ×5 (08:22→19:38)
[2016-08-03] MEDS: METOCLOPRAMIDE 10 MG TAB PO SCH ×2 (08:22→21:59)
[2016-08-03] MEDS: MULTIVITAMINS, THERA 1 EACH TAB PO SCH (08:23)
[2016-08-03 10:42] LABS: Large Platelets Present; Manual Review Performed; Target Cells Present
[2016-08-03 10:43] LABS: Polychromasia Present
--- NOTE | 2016-08-03 12:09 | P.PN ---
Subjective Principal diagnosis: Acute exacerbation of COPD and right lower lobe pneumonia This is a 46-year-old white male, smoker, history of transplant of the stomach, small bowel, pancreas in 2002 in [place]. 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 Patient has been complaining of cough wheezing shortness of breath for the last 2 weeks, and he received so far 2 courses of Levaquin by his primary care physician, but has not been improving. Follow-up chest x-ray showed worsening pneumonia involving both lungs, hence patient was advised to go to the ER for admission. Chest x-ray upon admission showed deformities involving the anterior left rib cage right lower lobe infiltrate was strongly suspected, and left lower lobe nodular infiltrate was also suspected. Considering the patient is immunocompromised, patient was admitted, and this consult was initiated. On the chest x-ray I have noted slight fullness of the mediastinum also. In addition to cough wheezing and shortness of breath, patient has been complaining of low-grade fever, no hemoptysis, no chest pain. Patient was reevaluated today on 08/03/2016, he is definitely feeling better, breathing easier. WBC count is 6.8 hemoglobin is 10. INR is 1.5 electrolytes are normal except for elevated potassium of 5.5 renal functioning is improving creatinine is down to 1.78 from 2.26 on admission. Influenza A and B are negative. Patient has no fever, and his vital signs are stable. Has some occasional wheezing, but overall significantly improved compared to yesterday. Objective - Vital Signs Vital signs: Vital Signs Temp 98.3 F 08/03/16 08:00 Pulse 84 08/03/16 12:01 Resp 18 08/03/16 08:00 BP 107/59 08/03/16 08:00 Pulse Ox 95 08/03/16 08:26 Intake & Output 08/02/16 08/03/16 08/03/16 18:59 06:59 18:59 Intake Total 1625 Output Total 650 Balance 975 Weight 96.5 kg 97 kg Intake: IV 750 Sodium Chloride 0.9% 1, 750 000 ml @ 75 mls/hr IV . [id number] [facility] Rx#:[id number] Intake, IV Titration 875 Amount Sodium Chloride 0.9% 1, 750 000 ml @ 75 mls/hr IV . [id number] [facility] Rx#:[id number] Vancomycin 1,500 mg In 125 Sodium Chloride 0.9% 250 ml @ 125 mls/hr IVPB Q12HR@0800,2000 [facility] Rx#: [id number] Output: Urine 650 Other: Voiding Method Urinal # Voids 1 - Exam Physical Exam: Revealed a 46-year-old white male in no distress, patient looks comfortable and he is presently on a nonrebreather mask. HEENT:[Neck is supple.] [No neck masses.] [No thyromegaly.] [No JVD.] Chest: [Diminished breath sounds at the bases some wheezing on forced expiratory maneuver noted.] Cardiac Exam: [Normal S1 and S2, no S3 gallop, no murmur.] Abdomen: [Multiple surgical scars noted throughout the abdomen otherwise Soft, nontender, no megaly, no rebound, no guarding, normal bowel sounds.] Extremities: Positive clubbing, no edema, no cyanosis.] Neurological Exam: [No focal neurologic deficit.] - Labs CBC & Chem 7: 08/03/16 05:32 08/03/16 05:32 Labs: Abnormal Lab Results - Last 24 Hours (Table) 08/03/16 08/03/16 08/03/16 Range/Units 05:32 05:32 05:32 RBC 3.63 L (4.30-5.90) m/uL Hgb 10.0 L (13.0-17.5) gm/dL Hct 34.8 L (39.0-53.0) % MCHC 28.7 L (31.0-37.0) g/dL RDW 17.0 H (11.5-15.5) % Plt Count 125 L (150-450) k/uL PT 14.7 H (9.0-12.0) sec Potassium 5.5 H (3.5-5.1) mmol/L BUN 24 H (9-20) mg/dL Creatinine 1.78 H (0.66-1.25) mg/dL Glucose 183 H (74-99) mg/dL POC Glucose (mg/dL) (75-99) mg/dL 08/03/16 Range/Units 06:24 RBC (4.30-5.90) m/uL Hgb (13.0-17.5) gm/dL Hct (39.0-53.0) % MCHC (31.0-37.0) g/dL RDW (11.5-15.5) % Plt Count (150-450) k/uL PT (9.0-12.0) sec Potassium (3.5-5.1) mmol/L BUN (9-20) mg/dL Creatinine (0.66-1.25) mg/dL Glucose (74-99) mg/dL POC Glucose (mg/dL) 189 H (75-99) mg/dL Assessment and Plan Plan: Impression: 1 Acute exacerbation of COPD 2 acute right lower lobe pneumonia is strongly suspected, considering the patient is immunocompromised, and did not respond to different courses of antibiotics given on outpatient basis, patient will need to be placed on broad- spectrum empiric antibiotics coverage and it doesn't improve will definitely need bronchoscopy and BAL for diagnosis. Today, I will arrange for a high- resolution CT of the chest to fully evaluate the nodular infiltrates noted on the chest x-ray. 3 history of stomach small bowel and pancreatic transplant, patient is on immunosuppressive therapy 4 suspect chronic renal failure, creatinine is improving compared to admission creatinine, no baseline for comparison. 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 Recommendation: Continue bronchodilators, broad-spectrum antibiotics, steroids, we'll continue his cardiac meds including Coumadin and Plavix titrate O2 to keep saturation above 90%, resume his home meds including Prograf and Bactrim. CT of the chest will be ordered without contrast. We'll continue to follow. Time with Patient: Less than 30
[2016-08-03 12:13] LABS: Glucose,Whole Blood 158 mg/dL (75-99)
--- NOTE | 2016-08-03 13:09 | CT ---
EXAMINATION TYPE: CT chest wo con DATE OF EXAM: 08/03/2016 1:00 PM COMPARISON: NONE HISTORY: nodular infiltrate CT DLP: 422.[address] of the chest was performed with lung and mediastinal window settings submitted. The la ck of contrast limits evaluation of the vascular, mediastinal and parenchymal structures including th e upper abdomen. LUNGS: There are scattered nodular infiltrates identified bilaterally. The largest area right upper l obe measures approximately 3.3 cm, right lower lobe measures 2.1 cm with air bronchogram. Largest are a on the left is seen within the left lower lobe measuring 1.8 cm. Consider multifocal pneumonia. Kaye ear atelectasis is also seen at the lung bases without effusion. MEDIASTINUM/KAVON: Anterior chest wall varices are noted on the left. There is prominence of the pulm onary arteries and pulmonary veins of uncertain etiology. Correlate for pulmonary arterial hypertensi on. Thoracic aorta is of normal caliber with limited evaluation given lack of contrast. The heart is not enlarged. No evidence for mediastinal mass. No lymph nodes greater than 1cm. UPPER ABDOMEN: Postoperative changes suspected. OTHER: Remote left-sided rib fractures. IMPRESSION: 1. Bilateral nodular infiltrates are nonspecific. Correlate for multifocal pneumonia. 2. Prominence of the pulmonary arteries may reflect pulmonary arterial hypertension.
--- NOTE | 2016-08-03 16:51 | CONS ---
DATE OF CONSULTATION: 08/03/2016 REASON FOR CONSULTATION: Pneumonia. HISTORY OF PRESENT ILLNESS: The patient is a 46-year-old male with a past medical history significant for COPD. Patient also has a history of a congenital defect and did have multiple visceral transplants , complications of a mesenteric graft thrombosis. Patient did have previous history of pneumonia. He started having difficulty in breathing, and that was getting worse over the last 2 weeks. The patient said he was using his updraft machine at home; however, the patient's breathing continued to get worse. He also had a cough productive of yellow sputum but no hemoptysis. No significant chest pain. Patient started having a fever that did concern him. The patient hence presented to the [facility] ER. Patient was evaluated by the ER physician. Patient did have a chest x-ray which shows chronic left rib deformities; correlate for COPD; and nodular density in the left suprahilar region. A CT of the chest was recommended, which was completed this afternoon, and it shows bilateral nodular infiltrates, non-specific; correlate for multifocal pneumonia. Patient has been treated with vancomycin, Zosyn and Levaquin. His fever seems to have resolved. I was asked to see the patient for further recommendations regarding antibiotic therapy. The patient denies having nausea or any vomiting; no significant abdominal pain or any diarrhea. No burning or frequency of urine. REVIEW OF SYSTEMS: CONSTITUTIONAL: Positive for weakness and a fever. EYES: No complaint. ENT: No complaint. RESPIRATORY: As per HPI. CARDIOVASCULAR: No complaint. GENITOURINARY: No complaint. GASTROINTESTINAL: No complaint. MUSCULOSKELETAL: No complaint. INTEGUMENTARY: No complaint. PSYCHOLOGICAL: No complaint. ENDOCRINE: No complaint. NEUROLOGICAL: No complaint. PAST MEDICAL HISTORY: 1. COPD. 2. Gastroesophageal reflux disease. 3. Congenital defect with reconstruction. 4. Mesenteric vein graft thrombosis. 5. Gastroparesis. 6. Adrenal insufficiency. 7. Chronic anemia. PAST SURGICAL HISTORY: Multiple visceral organ transplants, including small bowel, pancreas, duodenum and stomach. Left knee surgical repair. SOCIAL HISTORY: The patient lives with his significant other. He has a history of smoking but has cut down to a few cigarettes per day. No drug use. FAMILY HISTORY: None, as the patient was adopted. Medications currently include: 1. Vancomycin, Pharmacy to dose. 2. Zosyn. 3. Levaquin. 4. Zoloft. 5. Prograf. 6. Flomax. 7. Actigall. 8. Protonix. 9. Zofran. 10. Lopressor. 11. Solu-Medrol. 12. Humalog. 13. DuoNeb. On examination, blood pressure is 106/59 with a pulse of 68, temperature 98.1. He is 96% on 3 L nasal cannula. General description is a middle-aged male lying in bed in no distress. No tachypnea or accessory muscle of respiration use. HEENT examination shows pallor. No scleral icterus. Oral mucosal membranes dry. NECK: Trachea is central. No thyromegaly. LUNGS: Unlabored breathing. Some coarse breath sounds at the base. No wheeze. HEART: S1, S2. Regular rate and rhythm. ABDOMEN: Soft. No tenderness. EXTREMITIES: No edema of the feet. SKIN EXAMINATION: No rash or mass palpable. Neurologically patient is awake, alert, oriented x3. Mood and affect normal. LABS: Hemoglobin is 10.3, white count 10.5. BUN of 24, creatinine 1.78. Admission creatinine was 2.26. Potassium is 5.5. Liver enzymes are normal. Patient did have a blood culture obtained which is currently pending. DIAGNOSTIC IMPRESSION AND PLAN: Patient presented to hospital with a fever of 102 degrees Fahrenheit. Patient did have evidence of multifocal pneumonia on CT of the chest. The patient did have a significant cough with yellow sputum production; no hemoptysis. More likely a community-acquired pneumonia, though the patient has risk of opportunistic infection in view of the patient being immunocompromised from all the immunosuppressant medication he has been taking. But in view of response to the current antibiotic therapy, we are more likely dealing with a possible community-acquired pathogen, though resistant Gram-positive as well as Gram-negative cannot be entirely excluded. PLAN: 1. Will obtain sputum for Gram stain and culture and sensitivity. 2. Obtain urine for legionella antigen. 3. Will continue the patient on current antibiotics in the form of Zosyn and Vancomycin , will need to watch his kidney function closely. 4. Will follow up on the clinical condition and cultures to further adjust medication if needed. Thank you for this consultation. Will follow this patient along with you. CA
[2016-08-03] MEDS: WARFARIN 3 MG TAB PO SCH (16:55)
[2016-08-03 17:22] LABS: Glucose,Whole Blood 171 mg/dL (75-99)
--- NOTE | 2016-08-03 18:50 | PN ---
DATE OF SERVICE: 08/03/2016 PRESENTING COMPLAINT: Cough, yellow sputum. INTERVAL HISTORY: This is a patient with a 4-organ transplant, a smoker, who presented with bilateral multi-lobar pneumonia. Wheezing is slightly better. Still coughing up yellow sputum. Weak, tired. Lying down. Review of systems done for constitutional, cardiovascular, GI, pulmonary; relevant findings as above. Current medications are reviewed and include nebulized bronchodilator, IV Zosyn, IV vancomycin, Solu-Medrol. On examination, temperature 98.1, pulse 68, respiration 19, blood pressure 106/59, pulse ox 96% on 3 L. Patient's T-max last night was 102.5. GENERAL APPEARANCE: Lying in bed, tired-appearing. EYES: Pupils equal. Conjunctivae normal. NECK: JVD not raised. Mass not possible. RESPIRATORY: Effort increased. LUNGS: Decreased breath sounds. Some wheezing. Some ( ) crackles. CARDIOVASCULAR: First and second sounds normal. No edema. ABDOMEN: Soft, nontender. Liver and spleen not palpable. PSYCHIATRY: Alert and oriented x3. Mood and affect tired-appearing. INVESTIGATIONS: White count 6.8, hemoglobin 10. INR 1.5. Potassium 5.5. BUN 24, creatinine 1.78. ASSESSMENT: 1. Acute bilateral pneumonia, multi-lobar; suspect Gram-negative organism, having failed outpatient treatment in an immunosuppressed patient. 2. Acute chronic obstructive pulmonary disease exacerbation in a smoker, slow to respond. 3. Four-organ transplant in 2002, including small bowel, pancreas, duodenum, stomach done at [facility]. 4. Acute renal failure; could be acute tubular necrosis or prerenal, with some improvement, including that from sepsis. 5. Gastroesophageal reflux disease. 6. Chronic gastroparesis. 7. Chronic mesenteric vein thrombosis, for which patient is on Coumadin. 8. Chronic adrenal insufficiency, on IV steroids. 9. Anemia of chronic disease. 10. Thrombocytopenia; could be from sepsis. 11. Chronic nicotine dependence. Patient is a smoker. PLAN: Care was discussed with the patient. Cut back on the dose of Solu-Medrol. Continue the other antibiotics. Sputum to be sent off for Gram stain and culture. Will follow.
[2016-08-03 20:35] LABS: Glucose,Whole Blood 187 mg/dL (75-99)
[2016-08-03] MEDS: TAMSULOSIN 0.4 MG CAP.ER.24H PO SCH (21:59)
[2016-08-03] MEDS: methylPREDNISolone SOD SUCCI 40 MG/ML 1 ML VIAL IV SCH (23:30)
[2016-08-03] MEDS: VANCOMYCIN 1,500 MG in SODIUM CHLORIDE 0.9% 250 ML IVPB SCH (23:39)
[2016-08-04] MEDS: PIPERACILLIN-TAZOBACTAM 3.375 GM in DEXTROSE/WATER 1 50ML.BAG IVPB SCH ×4 (02:48→23:31)
[2016-08-04] MEDS: HYDROmorphone 1 MG/ML 1 ML SYRINGE IVP PRN ×5 (02:54→21:00)
[2016-08-04 06:02] LABS: Anion Gap 11 mmol/L; Blood Urea Nitrogen 27 mg/dL (9-20); Calcium 8.2 mg/dL (8.4-10.2); Carbon Dioxide 25 mmol/L (22-30); Chloride 105 mmol/L (98-107); Glucose 155 mg/dL (74-99); INR 1.6 (<1.1); Non-African American GFR(MDRD) 54 (>60 ml/min/1.73 sqM); Potassium 4.8 mmol/L (3.5-5.1); Prothrombin Time 15.6 sec (9.0-12.0); Sodium 141 mmol/L (137-145)
[2016-08-04 06:10] LABS: Glucose,Whole Blood 167 mg/dL (75-99)
[2016-08-04 06:11] LABS: Anisocytosis Slight; Basophils % (A) 0 %; CH 26.9; CHCM 28.3; Eosinophils % (A) 0 %; HCT 32.7 % (39.0-53.0); HDW 3.01; HGB 9.4 gm/dL (13.0-17.5); Hypochromasia Marked; Large Platelets Flag Marked; Luc % (Auto) 1; Lymphocytes # (A) 1.2 k/uL (1.0-4.8); Lymphocytes % (A) 14 %; MCH 27.4 pg (25.0-35.0); MCHC 28.7 g/dL (31.0-37.0); MCV 95.7 fL (80.0-100.0); Macrocytosis Slight; Mean Platelet Volume 13.1; Monocytes # (A) 0.4 k/uL (0-1.0); Monocytes % (A) 5 %; Neutrophils # (A) 6.4 k/uL (1.3-7.7); Neutrophils % (A) 79 %; RBC 3.41 m/uL (4.30-5.90); RDW 17.4 % (11.5-15.5); WBC 8.2 k/uL (3.8-10.6); WBC (Perox) 9.46
[2016-08-04] MEDS: INSULIN LISPRO (humaLOG) 300 UNIT/3 ML VIAL SQ SCH ×4 (06:31→21:22)
[2016-08-04] MEDS: TACROLIMUS 1 MG CAP PO SCH ×2 (06:31→20:56)
[2016-08-04] MEDS: PANTOPRAZOLE 40 MG TABLET PO SCH ×2 (06:32→17:10)
[2016-08-04 06:36] LABS: Large Platelets Present; Manual Review Performed; Target Cells Present
[2016-08-04 06:39] LABS: Howell-Jolly Bodies Present
[2016-08-04] MEDS: IPRATROPIUM-ALBUTEROL 3 ML NEB INHALATION SCH ×4 (08:28→19:47)
[2016-08-04] MEDS: DOCUSATE 100 MG CAP PO SCH ×2 (08:33→20:55)
[2016-08-04] MEDS: SERTRALINE 100 MG TAB PO SCH (08:47)
[2016-08-04] MEDS: clonazePAM 0.5 MG TAB PO SCH ×2 (08:47→20:59)
[2016-08-04] MEDS: SERTRALINE 50 MG TAB PO SCH (08:47)
[2016-08-04] MEDS: ONDANSETRON 4 MG TAB PO SCH ×3 (08:48→20:56)
[2016-08-04] MEDS: METOPROLOL TARTRATE 50 MG TAB PO SCH ×2 (08:48→20:56)
[2016-08-04] MEDS: METHADONE 10 MG TAB PO SCH ×2 (08:48→21:00)
[2016-08-04] MEDS: MULTIVITAMINS, THERA 1 EACH TAB PO SCH (08:48)
[2016-08-04] MEDS: URSODIOL 300 MG CAP PO SCH ×2 (08:48→20:56)
[2016-08-04] MEDS: methylPREDNISolone SOD SUCCI 40 MG/ML 1 ML VIAL IV SCH ×3 (08:49→23:31)
[2016-08-04] MEDS: CHOLECALCIFEROL 1,000 UNIT TAB PO SCH (08:49)
[2016-08-04] MEDS: METOCLOPRAMIDE 10 MG TAB PO SCH ×2 (08:55→20:56)
[2016-08-04] MEDS: CLOPIDOGREL 75 MG TAB PO SCH (08:55)
[2016-08-04] MEDS: MAGNESIUM OXIDE 400 MG TAB PO SCH ×2 (08:55→20:56)
[2016-08-04] MEDS: LIPASE 5,000/PROTEASE 17,000/AMYLASE 27,0000 PO SCH ×2 (08:55→20:55)
[2016-08-04] MEDS: LEVOFLOXACIN 500 MG TAB PO SCH (08:55)
--- NOTE | 2016-08-04 11:02 | P.PN ---
Subjective Principal diagnosis: Acute exacerbation of COPD and right lower lobe pneumonia This is a 46-year-old white male, smoker, history of transplant of the stomach, small bowel, pancreas in 2002 in [place]. 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 Patient has been complaining of cough wheezing shortness of breath for the last 2 weeks, and he received so far 2 courses of Levaquin by his primary care physician, but has not been improving. Follow-up chest x-ray showed worsening pneumonia involving both lungs, hence patient was advised to go to the ER for admission. Chest x-ray upon admission showed deformities involving the anterior left rib cage right lower lobe infiltrate was strongly suspected, and left lower lobe nodular infiltrate was also suspected. Considering the patient is immunocompromised, patient was admitted, and this consult was initiated. On the chest x-ray I have noted slight fullness of the mediastinum also. In addition to cough wheezing and shortness of breath, patient has been complaining of low-grade fever, no hemoptysis, no chest pain. Patient was reevaluated today on 08/03/2016, he is definitely feeling better, breathing easier. WBC count is 6.8 hemoglobin is 10. INR is 1.5 electrolytes are normal except for elevated potassium of 5.5 renal functioning is improving creatinine is down to 1.78 from 2.26 on admission. Influenza A and B are negative. Patient has no fever, and his vital signs are stable. Has some occasional wheezing, but overall significantly improved compared to yesterday. Patient was seen on 08/04/2016, continues to gradually improve, no cough no fever no chills no hemoptysis no chest pain. Patient is on multiple antibiotics for what seems to be bilateral pneumonia with nodular infiltrates. Patient is immunocompromised, overall he is doing much better today compared to 2 days ago. SGOT is 8.2 hemoglobin is 9.4 electrolytes and renal profile were noted, electrolytes are normal BUN is 27 creatinine is 1.41/improving. Blood cultures are negative so far. Sputum cultures are pending, patient was able to submit a sputum sample today. Objective - Vital Signs Vital signs: Vital Signs Temp 97.9 F 08/04/16 04:00 Pulse 92 08/04/16 08:41 Resp 18 08/04/16 04:00 BP 114/58 08/04/16 04:00 Pulse Ox 92 L 08/04/16 04:00 Intake & Output 08/03/16 08/04/16 08/04/16 18:59 06:59 18:59 Intake Total 1405 850 Output Total 1300 750 Balance 105 100 Weight 96.4 kg Intake: IV 750 600 Sodium Chloride 0.9% 1, 750 600 000 ml @ 75 mls/hr IV . [id number] [facility] Rx#:[id number] Intake, IV Titration 175 Amount Piperacillin-Tazobactam 3 50 .375 gm In Dextrose/Water 1 50ml.bag @ 12.5 mls/hr IVPB Q8HR [facility] Rx#: [id number] Vancomycin 1,500 mg In 125 Sodium Chloride 0.9% 250 ml @ 125 mls/hr IVPB Q16H [facility] Rx#:[id number] Oral 480 250 Output: Urine 1300 750 Other: Voiding Method Urinal # Voids 1 1 - Exam Physical Exam: Revealed a 46-year-old white male in no distress, patient looks comfortable and he is presently on a nonrebreather mask. HEENT:[Neck is supple.] [No neck masses.] [No thyromegaly.] [No JVD.] Chest: [Diminished breath sounds at the bases no crackles or rhonchi or wheezes noted today. Cardiac Exam: [Normal S1 and S2, no S3 gallop, no murmur.] Abdomen: [Multiple surgical scars noted throughout the abdomen otherwise Soft, nontender, no megaly, no rebound, no guarding, normal bowel sounds.] Extremities: Positive clubbing, no edema, no cyanosis.] Neurological Exam: [No focal neurologic deficit.] - Labs CBC & Chem 7: 08/04/16 05:39 08/04/16 05:39 Labs: Abnormal Lab Results - Last 24 Hours (Table) 08/03/16 08/03/16 08/03/16 Range/Units 12:10 17:01 20:34 RBC (4.30-5.90) m/uL Hgb (13.0-17.5) gm/dL Hct (39.0-53.0) % MCHC (31.0-37.0) g/dL RDW (11.5-15.5) % Plt Count (150-450) k/uL PT (9.0-12.0) sec BUN (9-20) mg/dL Creatinine (0.66-1.25) mg/dL Glucose (74-99) mg/dL POC Glucose (mg/dL) 158 H 171 H 187 H (75-99) mg/dL Calcium (8.4-10.2) mg/dL 08/04/16 08/04/16 08/04/16 Range/Units 05:39 05:39 05:39 RBC 3.41 L (4.30-5.90) m/uL Hgb 9.4 L (13.0-17.5) gm/dL Hct 32.7 L (39.0-53.0) % MCHC 28.7 L (31.0-37.0) g/dL RDW 17.4 H (11.5-15.5) % Plt Count 113 L (150-450) k/uL PT 15.6 H (9.0-12.0) sec BUN 27 H (9-20) mg/dL Creatinine 1.41 H (0.66-1.25) mg/dL Glucose 155 H (74-99) mg/dL POC Glucose (mg/dL) (75-99) mg/dL Calcium 8.2 L (8.4-10.2) mg/dL 08/04/16 Range/Units 06:09 RBC (4.30-5.90) m/uL Hgb (13.0-17.5) gm/dL Hct (39.0-53.0) % MCHC (31.0-37.0) g/dL RDW (11.5-15.5) % Plt Count (150-450) k/uL PT (9.0-12.0) sec BUN (9-20) mg/dL Creatinine (0.66-1.25) mg/dL Glucose (74-99) mg/dL POC Glucose (mg/dL) 167 H (75-99) mg/dL Calcium (8.4-10.2) mg/dL Assessment and Plan Plan: Impression: 1 Acute exacerbation of COPD 2 acute bilateral pneumonia , considering the patient is immunocompromised, and did not respond to different courses of antibiotics given on outpatient basis, patient will remain on present empiric antibiotics coverage and it doesn' t improve will definitely need bronchoscopy and BAL for diagnosis. High- resolution CT of the chest was reviewed again suggestive of bilateral nodular infiltrates/pneumonia. 3 history of stomach small bowel and pancreatic transplant, patient is on immunosuppressive therapy 4 suspect chronic renal failure, creatinine is improving compared to admission creatinine, no baseline for comparison. 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 Recommendation: Continue bronchodilators, broad-spectrum antibiotics, steroids, we'll continue his cardiac meds including Coumadin and Plavix titrate O2 to keep saturation above 90%, resume his home meds including Prograf and Bactrim. Follow-up chest x-ray on Saturday, and if improving consider discharge planning on Saturday. Otherwise if it is getting any worse, patient will need to be bronchoscoped. We'll continue to follow. Time with Patient: Less than 30
[2016-08-04 11:50] LABS: Glucose,Whole Blood 150 mg/dL (75-99)
[2016-08-04] MEDS ORDERED: VANCOMYCIN TROUGH DUE 1 EACH MISC MISCELLANE ONE (15:00)
[2016-08-04 17:08] LABS: Glucose,Whole Blood 158 mg/dL (75-99)
[2016-08-04] MEDS: WARFARIN 3 MG TAB PO SCH (17:11)
[2016-08-04] MEDS: VANCOMYCIN 1,500 MG in SODIUM CHLORIDE 0.9% 250 ML IVPB SCH (17:24)
[2016-08-04] MEDS: TAMSULOSIN 0.4 MG CAP.ER.24H PO SCH (20:56)
[2016-08-04 21:17] LABS: Glucose,Whole Blood 164 mg/dL (75-99)
[2016-08-05] MEDS: HYDROmorphone 1 MG/ML 1 ML SYRINGE IVP PRN ×6 (03:32→23:58)
[2016-08-05 06:09] LABS: Glucose,Whole Blood 124 mg/dL (75-99)
[2016-08-05 06:17] LABS: INR 1.8 (<1.1); Prothrombin Time 17.5 sec (9.0-12.0)
[2016-08-05] MEDS: INSULIN LISPRO (humaLOG) 300 UNIT/3 ML VIAL SQ SCH ×4 (06:18→21:28)
[2016-08-05] MEDS: PANTOPRAZOLE 40 MG TABLET PO SCH ×2 (06:44→17:02)
[2016-08-05] MEDS: TACROLIMUS 1 MG CAP PO SCH ×2 (06:45→20:22)
[2016-08-05] MEDS: IPRATROPIUM-ALBUTEROL 3 ML NEB INHALATION SCH ×4 (07:04→20:39)
--- NOTE | 2016-08-05 07:39 | PN ---
DATE OF SERVICE: 08/04/2016 Reason for follow-up is pneumonia. INTERVAL HISTORY: The patient is afebrile. Overall feeling better. He continues to have a cough decreased in intensity and bringing up some sputum. The patient denies having any chest pain. No abdominal pain and no diarrhea. On examination, blood pressure is 124/71 with a pulse of 93, temperature 98.4. He is 93% on 2 L nasal cannula. General description is a middle-age male lying in bed in no distress. RESPIRATORY SYSTEM: Unlabored breathing. Some coarse breath sounds at the bases. No wheezing. HEART: S1, S2 regular rate and rhythm. ABDOMEN: Soft, no tenderness. LABS: Hemoglobin 9.4, white count 8.2, BUN of 27, creatinine 1.41. Blood cultures so far negative. DIAGNOSTIC IMPRESSION AND PLAN: Patient admitted to hospital with sepsis, source is likely pneumonia in a patient who does have immuno compromise from his meds. However, the patient did show response to the current broad spectrum antibiotics that will be continued, adjusting antibiotics on the basis of sputum culture. Continue supportive care. CA
[2016-08-05] MEDS: methylPREDNISolone SOD SUCCI 40 MG/ML 1 ML VIAL IV SCH ×2 (08:20→17:02)
[2016-08-05] MEDS: CHOLECALCIFEROL 1,000 UNIT TAB PO SCH ×2 (08:21→08:36)
[2016-08-05] MEDS: LEVOFLOXACIN 500 MG TAB PO SCH (08:22)
[2016-08-05] MEDS: DOCUSATE 100 MG CAP PO SCH ×2 (08:22→20:21)
[2016-08-05] MEDS: CLOPIDOGREL 75 MG TAB PO SCH (08:22)
[2016-08-05] MEDS: LIPASE 5,000/PROTEASE 17,000/AMYLASE 27,0000 PO SCH ×2 (08:23→20:21)
[2016-08-05] MEDS: MAGNESIUM OXIDE 400 MG TAB PO SCH ×2 (08:23→20:21)
[2016-08-05] MEDS: URSODIOL 300 MG CAP PO SCH ×2 (08:23→20:21)
[2016-08-05] MEDS: ONDANSETRON 4 MG TAB PO SCH ×3 (08:24→20:21)
[2016-08-05] MEDS: METOCLOPRAMIDE 10 MG TAB PO SCH ×2 (08:24→20:22)
[2016-08-05] MEDS: SERTRALINE 50 MG TAB PO SCH (08:24)
[2016-08-05] MEDS: METOPROLOL TARTRATE 50 MG TAB PO SCH ×2 (08:24→20:21)
[2016-08-05] MEDS: SERTRALINE 100 MG TAB PO SCH (08:24)
[2016-08-05] MEDS: clonazePAM 0.5 MG TAB PO SCH ×2 (08:30→20:25)
[2016-08-05] MEDS: METHADONE 10 MG TAB PO SCH ×2 (08:30→20:25)
[2016-08-05] MEDS: VANCOMYCIN 1,500 MG in SODIUM CHLORIDE 0.9% 250 ML IVPB SCH ×2 (08:30→23:51)
--- NOTE | 2016-08-05 10:32 | P.PN ---
Subjective Principal diagnosis: Acute exacerbation of COPD and right lower lobe pneumonia This is a 46-year-old white male, smoker, history of transplant of the stomach, small bowel, pancreas in 2002 in [place]. 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 Patient has been complaining of cough wheezing shortness of breath for the last 2 weeks, and he received so far 2 courses of Levaquin by his primary care physician, but has not been improving. Follow-up chest x-ray showed worsening pneumonia involving both lungs, hence patient was advised to go to the ER for admission. Chest x-ray upon admission showed deformities involving the anterior left rib cage right lower lobe infiltrate was strongly suspected, and left lower lobe nodular infiltrate was also suspected. Considering the patient is immunocompromised, patient was admitted, and this consult was initiated. On the chest x-ray I have noted slight fullness of the mediastinum also. In addition to cough wheezing and shortness of breath, patient has been complaining of low-grade fever, no hemoptysis, no chest pain. Patient was reevaluated today on 08/03/2016, he is definitely feeling better, breathing easier. WBC count is 6.8 hemoglobin is 10. INR is 1.5 electrolytes are normal except for elevated potassium of 5.5 renal functioning is improving creatinine is down to 1.78 from 2.26 on admission. Influenza A and B are negative. Patient has no fever, and his vital signs are stable. Has some occasional wheezing, but overall significantly improved compared to yesterday. Patient was seen on 08/04/2016, continues to gradually improve, no cough no fever no chills no hemoptysis no chest pain. Patient is on multiple antibiotics for what seems to be bilateral pneumonia with nodular infiltrates. Patient is immunocompromised, overall he is doing much better today compared to 2 days ago. SGOT is 8.2 hemoglobin is 9.4 electrolytes and renal profile were noted, electrolytes are normal BUN is 27 creatinine is 1.41/improving. Blood cultures are negative so far. Sputum cultures are pending, patient was able to submit a sputum sample today. Seen on 08/05/2016, patient continues to gradually improve, no cough no wheezing no shortness of breath no fever no chills no hemoptysis and no chest pain. Labs were reviewed,CBC is unremarkable, INR is 1.8 basic metabolic profile is normal renal profile is significantly improved. Objective - Vital Signs Vital signs: Vital Signs Temp 97.9 F 08/05/16 03:41 Pulse 84 08/05/16 07:15 Resp 20 08/05/16 03:41 BP 107/59 08/05/16 03:41 Pulse Ox 93 L 08/05/16 03:41 Intake & Output 08/04/16 08/05/16 08/05/16 18:59 06:59 18:59 Intake Total 1965 60 Output Total 1250 1 Balance 715 59 Weight 95.1 kg Intake: IV 650 Piperacillin-Tazobactam 3 50 .375 gm In Dextrose/Water 1 50ml.bag @ 12.5 mls/hr IVPB Q8HR [facility] Rx#: [id number] Sodium Chloride 0.9% 1, 600 000 ml @ 75 mls/hr IV . [id number] [facility] Rx#:[id number] Intake, IV Titration 775 Amount Piperacillin-Tazobactam 3 50 .375 gm In Dextrose/Water 1 50ml.bag @ 12.5 mls/hr IVPB Q8HR [facility] Rx#: [id number] Vancomycin 1,500 mg In 125 Sodium Chloride 0.9% 250 ml @ 125 mls/hr IVPB Q12HR@0800,2000 [facility] Rx#: [id number] Vancomycin 1,500 mg In 600 Sodium Chloride 0.9% 250 ml @ 125 mls/hr IVPB Q16H [facility] Rx#:[id number] Oral 540 60 Output: Urine 1250 1 Other: Voiding Method Urinal Toilet # Voids 425 - Exam Physical Exam: Revealed a 46-year-old white male in no distress, patient looks comfortable and he is presently on a nonrebreather mask. HEENT:[Neck is supple.] [No neck masses.] [No thyromegaly.] [No JVD.] Chest: [Diminished breath sounds at the bases no crackles or rhonchi or wheezes noted today. Cardiac Exam: [Normal S1 and S2, no S3 gallop, no murmur.] Abdomen: [Multiple surgical scars noted throughout the abdomen otherwise Soft, nontender, no megaly, no rebound, no guarding, normal bowel sounds.] Extremities: Positive clubbing, no edema, no cyanosis.] Neurological Exam: [No focal neurologic deficit.] - Labs CBC & Chem 7: 08/04/16 05:39 08/04/16 05:39 Labs: Abnormal Lab Results - Last 24 Hours (Table) 08/04/16 08/04/16 08/04/16 Range/Units 11:42 16:58 20:44 PT (9.0-12.0) sec POC Glucose (mg/dL) 150 H 158 H 164 H (75-99) mg/dL 08/05/16 08/05/16 Range/Units 05:33 06:08 PT 17.5 H (9.0-12.0) sec POC Glucose (mg/dL) 124 H (75-99) mg/dL Microbiology - Last 24 Hours (Table) 08/04/16 16:30 Gram Stain - Preliminary Sputum Assessment and Plan Plan: Impression: 1 Acute exacerbation of COPD 2 acute bilateral pneumonia , considering the patient is immunocompromised, and did not respond to different courses of antibiotics given on outpatient basis, patient will remain on present empiric antibiotics coverage and it doesn' t improve will definitely need bronchoscopy and BAL for diagnosis. High- resolution CT of the chest was reviewed again suggestive of bilateral nodular infiltrates/pneumonia. Gram stain of sputum is showing moderate gram-positive cocci, final report is pending. 3 history of stomach small bowel and pancreatic transplant, patient is on immunosuppressive therapy 4 suspect chronic renal failure, creatinine is improving compared to admission creatinine, no baseline for comparison. 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 Recommendation: Continue bronchodilators, broad-spectrum antibiotics, steroids, we'll continue his cardiac meds including Coumadin and Plavix titrate O2 to keep saturation above 90%, resume his home meds including Prograf and Bactrim. Follow-up chest x-ray on Saturday, and if improving consider discharge planning on Saturday. Considering his improvement, no need for bronchoscopy, I will go ahead and repeat his chest x-ray in a.m. Time with Patient: Less than 30
--- NOTE | 2016-08-05 11:53 | PN ---
DATE OF SERVICE: 08/04/2016 PRESENTING COMPLAINT: Cough with yellow sputum. INTERVAL HISTORY: This patient with four organ transplant, smoker, presented with lateral, multilobar pneumonia. Has a cough, sputum production is still yellow but slowly coming down. Patient did walk up the hallway. Appetite is getting better. Patient has baseline diarrhea. Review of systems done for constitutional, cardiovascular, GI, pulmonary; relevant findings as above. Current medications are reviewed that include IV Zosyn and vancomycin. On examination, temperature 97.9, pulse 90, respirations 18, blood pressure 104/58, pulse ox 92% on 2-L. GENERAL APPEARANCE: Lying in bed, tired-appearing. EYES: Pupils equal. Conjunctivae normal. HEENT: JVD not raised. Mass not palpable. RESPIRATORY: Effort increased. LUNGS: Decreased breath sounds, wheezing present. CARDIOVASCULAR: First and second sounds normal. No edema. ABDOMEN: Soft, nontender. Liver and spleen not palpable. PSYCHIATRY: Alert and oriented x3. Mood and affect, anxious-appearing. INVESTIGATIONS: Accu-Cheks are noted. White count 8.2, hemoglobin 9.4, INR 1.6. Potassium 4.8. BUN 26, creatinine 1.41. ASSESSMENT: 1. Acute bilateral pneumonia, multilobar, suspect gram-negative organism having failed outpatient treatment in an immunosuppressed patient, slow to respond. 2. Acute chronic obstructive pulmonary disease exacerbation in a smoker. 3. Four organ transplant in 2002 including small bowel, pancreas, duodenum, stomach done at the [facility]. 4. Acute renal failure, could be acute tubular necrosis and/or prerenal with some biochemical improvement including that from sepsis. 5. Gastroesophageal reflux disease. 6. Chronic gastroparesis. 7. Chronic deep venous thrombosis with the patient on Coumadin. 8. Chronic adrenal insufficiency with patient on IV steroids. 9. Anemia of chronic disease. 10. Thrombocytopenia, could be from sepsis. 11. Chronic nicotine dependence. Patient smoker. 12. Pneumonia, causing sepsis on presentation. PLAN: Care was discussed with the patient and at the bedside. Continue current medication and treatment plan. Blood cultures are still pending.
[2016-08-05] MEDS: MULTIVITAMINS, THERA 1 EACH TAB PO SCH (12:30)
[2016-08-05] MEDS: PIPERACILLIN-TAZOBACTAM 3.375 GM in DEXTROSE/WATER 1 50ML.BAG IVPB SCH ×2 (12:30→17:02)
[2016-08-05] MEDS: WARFARIN 3 MG TAB PO SCH (17:02)
[2016-08-05 17:07] LABS: Glucose,Whole Blood 141 mg/dL (75-99)
[2016-08-05] MEDS: TAMSULOSIN 0.4 MG CAP.ER.24H PO SCH (20:22)
[2016-08-05 21:25] LABS: Glucose,Whole Blood 180 mg/dL (75-99)
[2016-08-05] MEDS: predniSONE 20 MG TAB PO SCH (23:52)
[2016-08-06] MEDS: PIPERACILLIN-TAZOBACTAM 3.375 GM in DEXTROSE/WATER 1 50ML.BAG IVPB SCH ×4 (03:18→23:20)
[2016-08-06] MEDS: HYDROmorphone 1 MG/ML 1 ML SYRINGE IVP PRN ×7 (03:21→22:51)
--- NOTE | 2016-08-06 07:22 | XR ---
EXAMINATION TYPE: XR chest 2V DATE OF EXAM: 08/06/2016 7:11 AM COMPARISON: Prior chest x-ray 02 August 2016 HISTORY: Abnormal chest x-ray, pneumonia TECHNIQUE: Frontal and lateral views of the chest are obtained. FINDINGS: Nodular densities somewhat less conspicuous. No pneumothorax or pleural effusion. Cardiome diastinal silhouette, pulmonary vascularity and pablo show similar appearance. IMPRESSION: There may be some improvement in aeration.
[2016-08-06] MEDS: IPRATROPIUM-ALBUTEROL 3 ML NEB INHALATION SCH ×4 (07:31→21:04)
[2016-08-06 07:47] LABS: INR 2.3 (<1.1); Prothrombin Time 22.1 sec (9.0-12.0)
[2016-08-06 07:55] LABS: Anisocytosis Slight; CH 26.9; CHCM 28.3; HCT 37.4 % (39.0-53.0); HGB 10.8 gm/dL (13.0-17.5); Hypochromasia Marked; Large Platelets Flag Marked; MCH 27.6 pg (25.0-35.0); MCHC 28.8 g/dL (31.0-37.0); MCV 95.9 fL (80.0-100.0); Macrocytosis Slight; Mean Platelet Volume 13.3; RDW 17.5 % (11.5-15.5); WBC 11.3 k/uL (3.8-10.6); WBC (Perox) 13.78
[2016-08-06 07:58] LABS: Calcium 8.8 mg/dL (8.4-10.2); Potassium 4.2 mmol/L (3.5-5.1)
[2016-08-06] MEDS: INSULIN LISPRO (humaLOG) 300 UNIT/3 ML VIAL SQ SCH ×4 (08:15→20:46)
[2016-08-06] MEDS: METHADONE 10 MG TAB PO SCH ×2 (08:34→20:44)
[2016-08-06] MEDS: clonazePAM 0.5 MG TAB PO SCH ×2 (08:35→20:44)
[2016-08-06] MEDS: CHOLECALCIFEROL 1,000 UNIT TAB PO SCH (08:35)
[2016-08-06] MEDS: predniSONE 20 MG TAB PO SCH (08:36)
[2016-08-06] MEDS: TACROLIMUS 1 MG CAP PO SCH ×2 (08:36→20:45)
[2016-08-06] MEDS: LIPASE 5,000/PROTEASE 17,000/AMYLASE 27,0000 PO SCH ×2 (08:36→20:45)
[2016-08-06] MEDS: URSODIOL 300 MG CAP PO SCH ×2 (08:36→20:46)
[2016-08-06] MEDS: SERTRALINE 100 MG TAB PO SCH (08:36)
[2016-08-06] MEDS: METOPROLOL TARTRATE 50 MG TAB PO SCH ×2 (08:36→20:45)
[2016-08-06] MEDS: ONDANSETRON 4 MG TAB PO SCH ×3 (08:36→20:45)
[2016-08-06] MEDS: SERTRALINE 50 MG TAB PO SCH (08:36)
[2016-08-06] MEDS: METOCLOPRAMIDE 10 MG TAB PO SCH ×2 (08:36→20:46)
[2016-08-06] MEDS: MAGNESIUM OXIDE 400 MG TAB PO SCH ×2 (08:36→20:46)
[2016-08-06] MEDS: PANTOPRAZOLE 40 MG TABLET PO SCH (08:37)
[2016-08-06] MEDS: CLOPIDOGREL 75 MG TAB PO SCH (08:37)
[2016-08-06 08:52] LABS: Add Differential Manual Differential
[2016-08-06 08:57] LABS: Nucleated Red Blood Cells 0 /100 WBC (0-0); Total Cells Counted 200
[2016-08-06 08:59] LABS: Target Cells Present
[2016-08-06 09:00] LABS: Polychromasia Present
[2016-08-06 09:01] LABS: Howell-Jolly Bodies Present
[2016-08-06 09:04] LABS: Large Platelets Present
--- NOTE | 2016-08-06 09:25 | PN ---
DATE OF SERVICE: 08/05/2016 PRESENTING COMPLAINT: Cough. INTERVAL HISTORY: This patient ( ) smoker presented with multilobar pneumonia; doing much better, up and about in the hallways. ( ) has really gone down. Eating much better. Review of systems done for constitutional, cardiovascular, GI, pulmonary; relevant findings as above. Current medications include IV Zosyn vancomycin. On examination, temperature 97.9, pulse 80, respirations 20, blood pressure 107/79, pulse ox 93% on room air. GENERAL APPEARANCE: Lying in bed, more comfortable. EYES: Pupils equal. Conjunctivae normal. NECK: JVD not raised. Mass not palpable. RESPIRATORY: Effort normal. LUNGS: Decreased breath sounds, improved wheezing. CARDIOVASCULAR: First and second sounds normal. No edema. ABDOMEN: Soft, nontender. Liver and spleen not palpable. PSYCHIATRY: Alert and oriented x3. Mood and affect normal. INVESTIGATIONS: Accu-Cheks are noted. Sputum is growing some Staph aureus. ASSESSMENT: 1. Acute bilateral pneumonia, multilobar, suspect gram-negative organism, also growing Staph aureus with clinical improvement. 2. Acute chronic obstructive pulmonary disease exacerbation in a smoker. 3. ( ) transplant in ( ) small bowel, pancreas, duodenum, stomach at [facility]. 4. Acute renal failure, could be acute tubular necrosis and prerenal with ( ) improvement including that from sepsis. 5. Gastroesophageal reflux disease. 6. Chronic gastroparesis. 7. Chronic deep venous thrombosis. The patient on Coumadin. 8. Chronic renal insufficiency. Patient on IV steroids. 9. Anemia of chronic disease. 10. Thrombocytopenia from sepsis. 11. Chronic nicotine dependence, patient did stop smoking he says a few weeks ago. 12. Pneumonia causing sepsis on presentation. PLAN: Overall doing much better. Repeat a chest x-ray in the morning. We will switch to oral prednisone in the morning.
--- NOTE | 2016-08-06 09:45 | PN ---
DATE OF SERVICE: 08/05/2016 Reason for follow-up pneumonia. INTERVAL HISTORY: The patient overall feels better. He has been breathing more comfortably. He continues to have a cough and bringing up some sputum. Denies any chest pain, no abdominal pain and no diarrhea. On examination, blood pressure 133/67 with a pulse of 68, temperature 98. He is 98% on room air. General description is a middle-age male lying in bed in no distress. RESPIRATORY SYSTEM: Unlabored breathing. Clear to auscultation anteriorly. HEART: S1, S2. Regular rate and rhythm. Abdomen soft, no tenderness. LABS: White count normal at 8.2. BUN of 27 and creatinine 1.41. Sputum showed presumptive Staph aureus. Blood cultures have been negative. DIAGNOSTIC IMPRESSION AND PLAN: Patient admitted to hospital with sepsis with evidence of pneumonia sputum with Staph aureus, waiting for the final ID of this pathogen. Continue Zosyn and Vanco, discharge antibiotic will depend on sensitivity. Continue supportive care. CA
[2016-08-06] MEDS: MULTIVITAMINS, THERA 1 EACH TAB PO SCH (13:15)
[2016-08-06 13:32] LABS: Glucose,Whole Blood 132 mg/dL (75-99)
--- NOTE | 2016-08-06 13:36 | P.PN ---
Subjective Progress note dated 08/06/2016 The patient looks well. Continues to improve. Seen by my partner yesterday. Continues to have less shortness of breath coughing or wheezing. A bit short of breath on exertion. Chest x-rays improved. The patient is not coughing up any phlegm or blood. No nausea vomiting or diarrhea. No chest pain or chest discomfort. The patient's initial presentation was that of COPD exacerbation a right lower lobe pneumonia. This gentleman has a history of stomach transplant small bowel pancreas transplant 2002 [facility]. He has a history of chronic atrial fibrillation transplant graft thrombosis requiring anticoagulation and IVC is immunocompromised. Again, the patient does seem to be getting better. Much less short of breath. Chest x-rays improving. Objective - Vital Signs Vital signs: Vital Signs Temp 97.1 F L 08/06/16 07:00 Pulse 68 08/06/16 11:31 Resp 16 08/06/16 09:41 BP 126/64 08/06/16 07:00 Pulse Ox 98 08/06/16 07:00 Intake & Output 08/05/16 08/06/16 08/06/16 18:59 06:59 18:59 Intake Total 300 650 Output Total 251 1500 Balance 49 -850 Weight 95.1 kg Intake: IV 650 Piperacillin-Tazobactam 3 50 .375 gm In Dextrose/Water 1 50ml.bag @ 12.5 mls/hr IVPB Q8HR [facility] Rx#: [id number] Sodium Chloride 0.9% 1, 600 000 ml @ 75 mls/hr IV . [id number] [facility] Rx#:[id number] Oral 300 Output: Urine 251 1500 Other: Voiding Method Toilet # Voids 1 1 - Exam No acute distress, oriented 3. HEENT examination is grossly unremarkable. Mucous membranes are moist. No oral lesions. Neck supple. Full range of motion. No adenopathy or thyromegaly. Cardiovascular examination reveals regular rhythm rate. S1-S2 normal. No S3- S4 murmur. Lungs reveal few scattered rhonchi. No wheezes or crackles. Abdomen soft bowel sounds are heard. No active abdominal masses or tenderness. Well-healed scars are noted. Extremities are intact. No sinus clubbing or edema. Skin is without lesion or rash. Brief neurologic examination is nonfocal - Labs CBC & Chem 7: 08/06/16 07:21 08/06/16 07:21 Labs: Abnormal Lab Results - Last 24 Hours (Table) 08/05/16 08/05/16 08/06/16 Range/Units 17:03 21:24 07:21 WBC (3.8-10.6) k/uL RBC (4.30-5.90) m/uL Hgb (13.0-17.5) gm/dL Hct (39.0-53.0) % MCHC (31.0-37.0) g/dL RDW (11.5-15.5) % Plt Count (150-450) k/uL Neutrophils # (Manual) (1.3-7.7) k/uL Lymphocytes # (Manual) (1.0-4.8) k/uL Monocytes # (Manual) (0-1.0) k/uL PT 22.1 H (9.0-12.0) sec Sodium (137-145) mmol/L BUN (9-20) mg/dL Creatinine (0.66-1.25) mg/dL Glucose (74-99) mg/dL POC Glucose (mg/dL) 141 H 180 H (75-99) mg/dL 08/06/16 08/06/16 Range/Units 07:21 07:21 WBC 11.3 H (3.8-10.6) k/uL RBC 3.90 L (4.30-5.90) m/uL Hgb 10.8 L (13.0-17.5) gm/dL Hct 37.4 L (39.0-53.0) % MCHC 28.8 L (31.0-37.0) g/dL RDW 17.5 H (11.5-15.5) % Plt Count 141 L (150-450) k/uL Neutrophils # (Manual) 9.3 H (1.3-7.7) k/uL Lymphocytes # (Manual) 0.6 L (1.0-4.8) k/uL Monocytes # (Manual) 1.5 H (0-1.0) k/uL PT (9.0-12.0) sec Sodium 146 H (137-145) mmol/L BUN 31 H (9-20) mg/dL Creatinine 2.07 H (0.66-1.25) mg/dL Glucose 126 H (74-99) mg/dL POC Glucose (mg/dL) (75-99) mg/dL Microbiology - Last 24 Hours (Table) 08/04/16 16:30 Gram Stain - Final Sputum Sputum Culture - Final Methicillin resist S. aureus Assessment and Plan (1) Acute exacerbation of chronic obstructive airways disease Status: Acute (2) Bronchitis Status: Acute (3) Febrile illness, acute Status: Acute (4) History of intestine transplant Status: Acute (5) EtOH dependence Status: Acute (6) Immunocompromised Status: Acute (7) Pancreatitis of pancreas transplant Status: Acute (8) Pancreatitis of transplanted pancreas Status: Acute (9) Pneumonia Status: Acute (10) Atrial fibrillation Status: Chronic Plan: Plan dated 08/06/2016 The patient continues to improve. His COPD is improved. His pneumonia is clearing on chest x-ray clinically pneumonia is improved. His CAT scan was consistent with bilateral nodular infiltrates which have improved. We'll continue to follow closely. The patient continues on broad-spectrum antibiotic steroids bronchodilators and oxygen therapy and his immunosuppressive regimen. Time with Patient: Less than 30
[2016-08-06] MEDS: VANCOMYCIN 1,500 MG in SODIUM CHLORIDE 0.9% 250 ML IVPB SCH (16:18)
[2016-08-06 17:32] LABS: Glucose,Whole Blood 219 mg/dL (75-99)
[2016-08-06] MEDS: WARFARIN 3 MG TAB PO SCH (17:37)
[2016-08-06 20:19] LABS: Glucose,Whole Blood 197 mg/dL (75-99)
[2016-08-06] MEDS: TAMSULOSIN 0.4 MG CAP.ER.24H PO SCH (20:45)
--- NOTE | 2016-08-06 22:38 | PN ---
DATE OF SERVICE: 08/06/2016 PRESENTING COMPLAINT: Cough. INTERVAL HISTORY: Patient is a smoker with a history of transplant. He presented with multi-lobar pneumonia. Sputum production has greatly gone down. Sputum is growing MRSA. He is eating better; up and about better. Review of systems done for constitutional, cardiovascular, GI, pulmonary; relevant findings as above. Current medications are reviewed that include IV Zosyn and vancomycin. On examination, temperature 98.4, pulse 67, respiration 16, blood pressure 111/62, pulse ox 93% on room air. GENERAL APPEARANCE: Lying in bed, awake. EYES: Pupils equal. Conjunctivae normal. NECK: JVD not raised. Mass not palpable. RESPIRATORY: Effort normal. LUNGS: Decreased breath sounds. Improved wheezing. CARDIOVASCULAR: First and second sounds normal. No edema. ABDOMEN: Soft, nontender. Liver and spleen not palpable. PSYCHIATRY: Alert and oriented x3. Mood and affect normal. INVESTIGATIONS: White count 11.3, hemoglobin 10.8. Potassium 4.2. BUN 31, creatinine 2.07. INR 2.3. Accu-Cheks are noted. ASSESSMENT: 1. Acute bilateral pneumonia, multi-lobar; suspect Gram-negative organism. Also growing Staphylococcus aureus. Showing clinical improvement. 2. Acute chronic obstructive pulmonary disease exacerbation in a smoker, improving. 3. Four-organ transplant, including duodenum, small bowel, pancreas, stomach at [facility] in 2002. 4. Acute renal failure, acute tubular necrosis and prerenal, with improvement, including that from sepsis. 5. Gastroesophageal reflux disease. 6. Chronic gastroparesis. 7. Chronic deep venous thrombosis. Patient is on Coumadin. 8. Chronic renal insufficiency. 9. Chronic kidney disease, stage III. 10. Anemia of chronic disease. 11. Thrombocytopenia with sepsis. 12. Chronic nicotine dependence. Patient did stop smoking some time ago. 13. Pneumonia causing sepsis on presentation. Patient continues to improve. ( ) Dr. Zhao, who is covering for Dr. Suárez, Infectious Disease. He is going to coordinate the antibiotics. Possibly will need a PICC line. Will follow.
[2016-08-07] MEDS: HYDROmorphone 1 MG/ML 1 ML SYRINGE IVP PRN ×6 (04:52→21:49)
[2016-08-07 07:10] LABS: Glucose,Whole Blood 128 mg/dL (75-99)
[2016-08-07] MEDS: INSULIN LISPRO (humaLOG) 300 UNIT/3 ML VIAL SQ SCH ×4 (07:10→21:43)
--- NOTE | 2016-08-07 07:23 | PN ---
DATE OF SERVICE: 08/06/2016 Reason for followup is MRSA pneumonia. INTERVAL HISTORY: The patient is afebrile. He has been breathing comfortably. Patient denies significant chest pain. He did have some cough, but not bringing up any sputum. No abdominal pain or any diarrhea. On examination, blood pressure is 106/64 with a pulse of 70, temperature 98. He is 96% on room air. General description is a middle-age lying in bed in no distress. RESPIRATORY SYSTEM: Unlabored breathing. Clear to auscultation anteriorly. HEART: S1, S2. Regular rate and rhythm. ABDOMEN: Soft. No tenderness. LABS: BUN of 31 with creatinine 2.07. Hemoglobin is 10.8, white count 11.3. INR is 2.3. DIAGNOSTIC IMPRESSION AND PLAN: Patient with methicillin-resistant Staphylococcus aureus pneumonia for which the patient is continued on vancomycin, pharmacy to dose. As o gram negative has been grown, Zosyn was discontinued. The patient is on Zoloft that will contraindicate use of zyvox and the patient seems to be high risk of nephrotoxicity from the vancomycin in outpatient setting. We will discuss with the pharmacy if the Zyvox could be used holding on the Zoloft so we can avoid the PICC line. If that is a possibility PICC line will be avoided. Plan has be discussed in detail with the attending physician. Continue supportive care. MTDD
[2016-08-07] MEDS: IPRATROPIUM-ALBUTEROL 3 ML NEB INHALATION SCH ×4 (07:34→20:01)
[2016-08-07] MEDS: LIPASE 5,000/PROTEASE 17,000/AMYLASE 27,0000 PO SCH ×2 (08:02→21:42)
[2016-08-07] MEDS: CLOPIDOGREL 75 MG TAB PO SCH (08:02)
[2016-08-07] MEDS: CHOLECALCIFEROL 1,000 UNIT TAB PO SCH (08:02)
[2016-08-07] MEDS: METHADONE 10 MG TAB PO SCH ×2 (08:03→21:41)
[2016-08-07] MEDS: URSODIOL 300 MG CAP PO SCH ×2 (08:03→21:44)
[2016-08-07] MEDS: TACROLIMUS 1 MG CAP PO SCH ×2 (08:03→21:43)
[2016-08-07] MEDS: clonazePAM 0.5 MG TAB PO SCH ×2 (08:04→21:41)
[2016-08-07] MEDS: SERTRALINE 50 MG TAB PO SCH (08:04)
[2016-08-07] MEDS: METOCLOPRAMIDE 10 MG TAB PO SCH ×2 (08:04→21:44)
[2016-08-07] MEDS: METOPROLOL TARTRATE 50 MG TAB PO SCH ×2 (08:04→21:44)
[2016-08-07] MEDS: predniSONE 20 MG TAB PO SCH (08:04)
[2016-08-07] MEDS: ONDANSETRON 4 MG TAB PO SCH ×3 (08:04→21:42)
[2016-08-07] MEDS: MAGNESIUM OXIDE 400 MG TAB PO SCH ×2 (08:04→21:43)
[2016-08-07] MEDS: VANCOMYCIN 1,500 MG in SODIUM CHLORIDE 0.9% 250 ML IVPB SCH (08:04)
[2016-08-07] MEDS: SERTRALINE 100 MG TAB PO SCH (08:06)
[2016-08-07 09:03] LABS: INR 2.3 (<1.1); Prothrombin Time 22.4 sec (9.0-12.0)
[2016-08-07 09:08] LABS: Calcium 8.9 mg/dL (8.4-10.2); Potassium 4.3 mmol/L (3.5-5.1)
[2016-08-07 09:12] LABS: Anisocytosis Slight; Basophils % (A) 0 %; CH 27.1; CHCM 29.2; Eosinophils % (A) 0 %; HCT 35.5 % (39.0-53.0); HDW 3.25; HGB 10.7 gm/dL (13.0-17.5); Hypochromasia Marked; Large Platelets Flag Marked; Luc # (Auto) 0.42; Luc % (Auto) 3; Lymphocytes # (A) 2.8 k/uL (1.0-4.8); Lymphocytes % (A) 21 %; MCH 28.2 pg (25.0-35.0); MCHC 30.2 g/dL (31.0-37.0); MCV 93.5 fL (80.0-100.0); Monocytes # (A) 1.3 k/uL (0-1.0); Monocytes % (A) 9 %; Neutrophils # (A) 8.9 k/uL (1.3-7.7); Neutrophils % (A) 67 %; RBC 3.79 m/uL (4.30-5.90); RDW 17.3 % (11.5-15.5); WBC 13.4 k/uL (3.8-10.6); WBC (Perox) 14.29
[2016-08-07 11:37] LABS: Glucose,Whole Blood 128 mg/dL (75-99)
[2016-08-07] MEDS: MULTIVITAMINS, THERA 1 EACH TAB PO SCH (12:06)
--- NOTE | 2016-08-07 13:23 | P.PN ---
Subjective Progress note dated 08/06/2016 The patient looks well. Continues to improve. Seen by my partner yesterday. Continues to have less shortness of breath coughing or wheezing. A bit short of breath on exertion. Chest x-rays improved. The patient is not coughing up any phlegm or blood. No nausea vomiting or diarrhea. No chest pain or chest discomfort. The patient's initial presentation was that of COPD exacerbation a right lower lobe pneumonia. This gentleman has a history of stomach transplant small bowel pancreas transplant 2002 [facility]. He has a history of chronic atrial fibrillation transplant graft thrombosis requiring anticoagulation and IVC is immunocompromised. Again, the patient does seem to be getting better. Much less short of breath. Chest x-rays improving. Progress note dated 08/07/2016 46-year-old gentleman with a history of stomach transplant small bowel and pancreas transplant back in 2002 [facility]. He has a history of chronic atrial fibrillation transplant graft thrombosis and he is immunocompromised because of his immunosuppressants. He was admitted with a diagnosis of COPD exacerbation and right lower lobe pneumonia. He states he might be going home tomorrow. Feeling better. Still little fatigued and weak. A little short of breath. No nausea vomiting or diarrhea. No fever currently. Is producing a small amount of phlegm when he coughs not much. Overall his respiratory status has improved. Objective - Vital Signs Vital signs: Vital Signs Temp 97.7 F 08/07/16 07:00 Pulse 69 08/07/16 08:00 Resp 16 08/07/16 08:00 BP 128/68 08/07/16 07:00 Pulse Ox 94 L 08/07/16 07:00 Intake & Output 08/06/16 08/07/16 08/07/16 18:59 06:59 18:59 Intake Total 130 650 360 Output Total 700 Balance -570 650 360 Intake: IV 130 650 0.9 80 600 Piperacillin-Tazobactam 3 50 50 .375 gm In Dextrose/Water 1 50ml.bag @ 12.5 mls/hr IVPB Q8HR [facility] Rx#: [id number] Oral 360 Output: Urine 700 Other: Voiding Method Toilet Toilet Toilet # Voids 4 # Bowel Movements 3 - Exam No acute distress, oriented 3. HEENT examination is grossly unremarkable. Mucous membranes are moist. No oral lesions. Neck supple. Full range of motion. No adenopathy or thyromegaly. Cardiovascular examination reveals regular rhythm rate. S1-S2 normal. No S3- S4 murmur. Lungs reveal few scattered rhonchi. No wheezes or crackles. lung sounds are improved today. He still has some residual findings as above. Overall though, things are much improved. Abdomen soft bowel sounds are heard. No active abdominal masses or tenderness. Well-healed scars are noted. Extremities are intact. No sinus clubbing or edema. Skin is without lesion or rash. Brief neurologic examination is nonfocal - Labs CBC & Chem 7: 08/07/16 08:25 08/07/16 08:25 Labs: Abnormal Lab Results - Last 24 Hours (Table) 08/06/16 08/06/16 08/06/16 Range/Units 13:19 17:29 20:14 WBC (3.8-10.6) k/uL RBC (4.30-5.90) m/uL Hgb (13.0-17.5) gm/dL Hct (39.0-53.0) % MCHC (31.0-37.0) g/dL RDW (11.5-15.5) % Plt Count (150-450) k/uL Neutrophils # (1.3-7.7) k/uL Monocytes # (0-1.0) k/uL PT (9.0-12.0) sec BUN (9-20) mg/dL Creatinine (0.66-1.25) mg/dL Glucose (74-99) mg/dL POC Glucose (mg/dL) 132 H 219 H 197 H (75-99) mg/dL 08/07/16 08/07/16 08/07/16 Range/Units 07:07 08:25 08:25 WBC (3.8-10.6) k/uL RBC (4.30-5.90) m/uL Hgb (13.0-17.5) gm/dL Hct (39.0-53.0) % MCHC (31.0-37.0) g/dL RDW (11.5-15.5) % Plt Count (150-450) k/uL Neutrophils # (1.3-7.7) k/uL Monocytes # (0-1.0) k/uL PT 22.4 H (9.0-12.0) sec BUN 36 H (9-20) mg/dL Creatinine 2.26 H (0.66-1.25) mg/dL Glucose 108 H (74-99) mg/dL POC Glucose (mg/dL) 128 H (75-99) mg/dL 08/07/16 08/07/16 Range/Units 08:25 11:31 WBC 13.4 H (3.8-10.6) k/uL RBC 3.79 L (4.30-5.90) m/uL Hgb 10.7 L (13.0-17.5) gm/dL Hct 35.5 L (39.0-53.0) % MCHC 30.2 L (31.0-37.0) g/dL RDW 17.3 H (11.5-15.5) % Plt Count 137 L (150-450) k/uL Neutrophils # 8.9 H (1.3-7.7) k/uL Monocytes # 1.3 H (0-1.0) k/uL PT (9.0-12.0) sec BUN (9-20) mg/dL Creatinine (0.66-1.25) mg/dL Glucose (74-99) mg/dL POC Glucose (mg/dL) 128 H (75-99) mg/dL Microbiology - Last 24 Hours (Table) 08/04/16 16:30 Gram Stain - Final Sputum Sputum Culture - Final Methicillin resist S. aureus Assessment and Plan (1) Acute exacerbation of chronic obstructive airways disease Status: Acute (2) Bronchitis Status: Acute (3) Febrile illness, acute Status: Acute (4) History of intestine transplant Status: Acute (5) EtOH dependence Status: Acute (6) Immunocompromised Status: Acute (7) Pancreatitis of pancreas transplant Status: Acute (8) Pancreatitis of transplanted pancreas Status: Acute (9) Pneumonia Status: Acute (10) Atrial fibrillation Status: Chronic Plan: Plan dated 08/06/2016 The patient continues to improve. His COPD is improved. His pneumonia is clearing on chest x-ray clinically pneumonia is improved. His CAT scan was consistent with bilateral nodular infiltrates which have improved. We'll continue to follow closely. The patient continues on broad-spectrum antibiotic steroids bronchodilators and oxygen therapy and his immunosuppressive regimen. Plan dated 08/07/2016 The patient continues to show improvement. Less short of breath. His COPD is improved. Coughing a bit. Not producing much in the way of phlegm. His chest x-rays improved as well. His chest CAT scan was reviewed. Is consistent with bilateral nodular infiltrates which have also improved. He sitting with his mother today. He does request a regular diet. We'll provide that for him. Hopefully discharge tomorrow. We'll continue to follow closely. Prognosis is guarded. Time with Patient: Less than 30
[2016-08-07] MEDS ORDERED: PHYTONADIONE 2.5 MG in SODIUM CHLORIDE 0.9% 50 ML IVPB STA (14:45)
[2016-08-07 17:16] LABS: Glucose,Whole Blood 204 mg/dL (75-99)
[2016-08-07 20:00] LABS: Glucose,Whole Blood 179 mg/dL (75-99)
[2016-08-07 21:30] LABS: INR 1.8 (<1.1); Prothrombin Time 17.3 sec (9.0-12.0)
[2016-08-07] MEDS: CEFTAROLINE FOSAMIL 400 MG in SODIUM CHLORIDE 0.9% 250 ML IVPB SCH (21:41)
[2016-08-07] MEDS: TAMSULOSIN 0.4 MG CAP.ER.24H PO SCH (21:42)
--- NOTE | 2016-08-07 21:59 | PN ---
DATE OF SERVICE: 08/07/2016 REASON FOR FOLLOWUP: MRSA pneumonia. INTERVAL HISTORY: The patient is afebrile. He is currently breathing comfortably. The patient denies significant chest pain. Occasional cough. No abdominal pain. No nausea, vomiting or any diarrhea. On examination, blood pressure is 117/63 with pulse of 68, temperature 97.9. He is 94% on room air. General description is a middle-aged male lying in bed in no distress. RESPIRATORY SYSTEM: Unlabored breathing. Some coarse breath sounds at the base. No wheeze. HEART: S1, S2. Regular rate and rhythm. ABDOMEN: Soft. No tenderness. LABS: Hemoglobin is 10.7, white count 13.4 with a BUN of 36, creatinine now of 2.26. Sputum with MRSA. Blood culture negative. DIAGNOSTIC IMPRESSION AND PLAN: Patient admitted to hospital with sepsis with methicillin-resistant Staphylococcus aureus pneumonia. Patient currently on multiple medications that contraindicate the use of the Zyvox. Hence will have to go with a PICC line and IV antibiotic therapy. Patient is also at high risk of nephrotoxicity from the vancomycin, especially in the outpatient setting. It will be hard to monitor his levels. Patient will be switched over to Teflaro 400 q.12. PICC line to be placed tomorrow. His Coumadin will be put on hold today with vitamin K per attending. Patient has said that he has held his Coumadin in the past without any problem. Once he gets a PICC line and antibiotic, he should then be able to go home from ID standpoint with outpatient followup. Continue supportive care.
[2016-08-07] MEDS ORDERED: VANCOMYCIN TROUGH DUE 1 EACH MISC MISCELLANE ONE (23:00)
[2016-08-08] MEDS: HYDROmorphone 1 MG/ML 1 ML SYRINGE IVP PRN ×8 (01:30→23:34)
[2016-08-08 07:10] LABS: Glucose,Whole Blood 113 mg/dL (75-99)
[2016-08-08] MEDS: SERTRALINE 100 MG TAB PO SCH (07:23)
[2016-08-08] MEDS: TACROLIMUS 1 MG CAP PO SCH ×2 (07:23→20:28)
[2016-08-08] MEDS: predniSONE 20 MG TAB PO SCH (07:24)
[2016-08-08] MEDS: LIPASE 5,000/PROTEASE 17,000/AMYLASE 27,0000 PO SCH ×2 (07:24→20:26)
[2016-08-08] MEDS: URSODIOL 300 MG CAP PO SCH ×2 (07:24→20:27)
[2016-08-08] MEDS: SERTRALINE 50 MG TAB PO SCH (07:24)
[2016-08-08] MEDS: ONDANSETRON 4 MG TAB PO SCH ×3 (07:24→20:27)
[2016-08-08] MEDS: MAGNESIUM OXIDE 400 MG TAB PO SCH ×2 (07:25→20:27)
[2016-08-08] MEDS: METOCLOPRAMIDE 10 MG TAB PO SCH ×2 (07:25→20:26)
[2016-08-08] MEDS: CHOLECALCIFEROL 1,000 UNIT TAB PO SCH (07:25)
[2016-08-08] MEDS: METOPROLOL TARTRATE 50 MG TAB PO SCH ×2 (07:25→20:27)
[2016-08-08] MEDS: CLOPIDOGREL 75 MG TAB PO SCH (07:26)
--- NOTE | 2016-08-08 07:30 | PN ---
DATE OF SERVICE: 08/07/2016 PRESENTING COMPLAINT: Cough. INTERVAL HISTORY: This is a smoker, four organ transplant. Presented with multilobar pneumonia, growing MRSA. Spoke to Dr. Zhao earlier today, getting a PICC line, INR has to be scaled back and ordered some IV vitamin K. Sputum production is going down, but still some present. Review of systems done for constitutional, cardiovascular, GI, pulmonary; relevant findings as above. Current medications are reviewed that include IV ceftaroline. On examination, temperature 97.9, pulse 58, respiration 16, blood pressure 117/63, pulse ox 94% on room air room air. GENERAL APPEARANCE: Lying in bed, more awake. EYES: Pupils equal. Conjunctivae normal. JVD not raised. Mass not palpable. Respiratory effort normal. LUNGS: Improved air entry. CARDIOVASCULAR: First and second sounds normal. No edema. ABDOMEN: Soft, nontender. Liver and spleen not palpable. PSYCHIATRY: Alert and oriented x3. Mood and affect normal. INVESTIGATIONS: White count 13.4, hemoglobin 10.7, potassium 4.3, BUN 36, creatinine 2.26, INR 2.3. ASSESSMENT: 1. Acute bilateral pneumonia, multilobar, from methicillin-susceptible Staphylococcus aureus with clinical improvement. 2. Acute chronic obstructive pulmonary disease exacerbation in a smoker. 3. Four organ transplant including duodenum, small bowel, pancreas, stomach in the [facility] in 2002, on immunosuppressive. 4. Acute renal failure, acute tubular necrosis and prerenal with improvement including that from sepsis, present on admission. 5. Gastroesophageal reflux disease. 6. Chronic gastroparesis. 7. Chronic deep venous thrombosis. Patient is on Coumadin. 8. Chronic kidney disease stage III, from nephrosclerosis. 9. Anemia of chronic disease secondary to kidney disease. 10. Thrombocytopenia with sepsis. 11. Pneumonia causing sepsis on presentation. PLAN: Vitamin K 2.5 mg was ordered by me earlier today. Repeat INR this evening, came back under 1.8. Will repeat INR in the morning. Patient is good to proceed with the PICC line.
[2016-08-08] MEDS: INSULIN LISPRO (humaLOG) 300 UNIT/3 ML VIAL SQ SCH ×4 (07:36→20:24)
[2016-08-08] MEDS: METHADONE 10 MG TAB PO SCH ×2 (07:37→21:48)
[2016-08-08] MEDS: clonazePAM 0.5 MG TAB PO SCH ×2 (07:37→21:48)
[2016-08-08] MEDS: CEFTAROLINE FOSAMIL 400 MG in SODIUM CHLORIDE 0.9% 250 ML IVPB SCH ×2 (07:38→21:48)
[2016-08-08] MEDS: IPRATROPIUM-ALBUTEROL 3 ML NEB INHALATION SCH ×4 (07:49→20:23)
[2016-08-08 08:37] LABS: INR 1.4 (<1.1); Prothrombin Time 13.7 sec (9.0-12.0)
[2016-08-08 08:41] LABS: Anisocytosis Slight; Basophils % (A) 0 %; CH 26.7; CHCM 29.1; Calcium 8.9 mg/dL (8.4-10.2); Eosinophils % (A) 0 %; HCT 36.4 % (39.0-53.0); HDW 3.21; HGB 10.9 gm/dL (13.0-17.5); Hypochromasia Marked; Large Platelets Flag Marked; Luc % (Auto) 3; Lymphocytes # (A) 3.6 k/uL (1.0-4.8); Lymphocytes % (A) 22 %; MCH 27.8 pg (25.0-35.0); MCV 92.5 fL (80.0-100.0); Mean Platelet Volume 13.7; Monocytes # (A) 1.4 k/uL (0-1.0); Monocytes % (A) 9 %; Neutrophils # (A) 10.7 k/uL (1.3-7.7); Neutrophils % (A) 66 %; RBC 3.94 m/uL (4.30-5.90); RDW 16.9 % (11.5-15.5); WBC 16.1 k/uL (3.8-10.6); WBC (Perox) 17.82
[2016-08-08 10:03] LABS: Large Platelets Present; Manual Review Performed; Target Cells Present
[2016-08-08 10:05] LABS: Howell-Jolly Bodies Present
[2016-08-08 11:13] LABS: Glucose,Whole Blood 117 mg/dL (75-99)
[2016-08-08] MEDS ORDERED: LIDOCAINE 2% INJ 20 MG/ML (20 ML MDV) ONE (11:15)
[2016-08-08] MEDS: MULTIVITAMINS, THERA 1 EACH TAB PO SCH (12:08)
--- NOTE | 2016-08-08 15:43 | IR ---
EXAMINATION TYPE: IR venogram upper ext BILAT DATE OF EXAM: 08/08/2016 12:16 PM COMPARISON: NONE CLINICAL HISTORY: Infection Needs long-term intravenous access for antibiotics. PROCEDURE: After informed consent, the skin overlying the left cephalic vein was localized with ultrasound and n oted to be compressible and patent. An ultrasound image was obtained and submitted on the patient's chart. The overlying skin was prepped and draped and Lidocaine was used for local anesthesia. A ski n daniel was made with a scalpel. Access was gained to the vein under ultrasound guidance with a 21 ga uge needle and a 0.018 inch wire was advanced but could not be advanced centrally. Using similar kerwin hnique and attention directed to the brachial vein on the left. Similarly the wire could not be advan nasra centrally. 3 Telugu catheter was introduced over the wire general hand injection of contrast mate rial was. Based on the findings the procedure was aborted on the left and attention directed to the r ight brachial vein. Using similar technique access was gained to the right brachial vein. The wire co uld not be advanced central to the subclavian vein. Exam was aborted. FINDINGS: Extensive collateralization noted over the left upper extremity. Fluoro time and fluoroscopic images submitted to document procedure: 292 intraoperative C-arm images, 1.9 minutes fluoroscopy time IMPRESSION: Aborted bilateral PICC line attempt. There is likely central venous occlusion.
--- NOTE | 2016-08-08 15:55 | P.PN ---
Subjective Progress note dated 08/06/2016 The patient looks well. Continues to improve. Seen by my partner yesterday. Continues to have less shortness of breath coughing or wheezing. A bit short of breath on exertion. Chest x-rays improved. The patient is not coughing up any phlegm or blood. No nausea vomiting or diarrhea. No chest pain or chest discomfort. The patient's initial presentation was that of COPD exacerbation a right lower lobe pneumonia. This gentleman has a history of stomach transplant small bowel pancreas transplant 2002 [facility]. He has a history of chronic atrial fibrillation transplant graft thrombosis requiring anticoagulation and IVC is immunocompromised. Again, the patient does seem to be getting better. Much less short of breath. Chest x-rays improving. Progress note dated 08/07/2016 46-year-old gentleman with a history of stomach transplant small bowel and pancreas transplant back in 2002 [facility]. He has a history of chronic atrial fibrillation transplant graft thrombosis and he is immunocompromised because of his immunosuppressants. He was admitted with a diagnosis of COPD exacerbation and right lower lobe pneumonia. He states he might be going home tomorrow. Feeling better. Still little fatigued and weak. A little short of breath. No nausea vomiting or diarrhea. No fever currently. Is producing a small amount of phlegm when he coughs not much. Overall his respiratory status has improved. Progress note dated 08/08/2016 The patient looks pretty well from the pulmonary standpoint. He is a 46-year- old male with a history of stomach and small bowel as well as pancreas transplant back in 2002 [facility]. He has a history of chronic atrial fibrillation, transplant graft thrombosis, he is immunocompromised because of his immunosuppressive medications. He was admitted with a diagnosis of COPD exacerbation with right lower lobe pneumonia. Clinically and radiographically, he is much improved a PICC line was attempted today but apparently fell. He needs to go home on IV antibiotics. I'm not sure what the plan will be. No fever no chills. Not coughing up any phlegm or blood. Feeling much better from the pulmonary standpoint. Objective - Vital Signs Vital signs: Vital Signs Temp 98.0 F 08/08/16 10:42 Pulse 76 08/08/16 15:10 Resp 20 08/08/16 15:10 BP 117/65 08/08/16 10:42 Pulse Ox 97 08/08/16 10:42 Intake & Output 08/07/16 08/08/16 08/08/16 18:59 06:59 18:59 Intake Total 0499 961 0822 Output Total 2300 Balance 1860 400 -850 Weight 95.1 kg Intake: IV 160 160 600 0.9 160 160 600 Intake, IV Titration 500 250 Amount Ceftaroline Fosamil 400 250 250 mg In Sodium Chloride 0.9 % 250 ml @ 250 mls/hr IVPB Q12HR [facility] Rx#: [id number] Phytonadione 2.5 mg In 50 Sodium Chloride 0.9% 50 ml @ 100 mls/hr IVPB [facility] Rx#:[id number] Vancomycin 1,500 mg In 200 Sodium Chloride 0.9% 250 ml @ 125 mls/hr IVPB Q16H [facility] Rx#:[id number] Oral 1200 240 600 Output: Urine 2300 Other: Voiding Method Toilet Toilet Toilet # Voids 4 1 3 # Bowel Movements 2 - Exam No acute distress, oriented 3. HEENT examination is grossly unremarkable. Mucous membranes are moist. No oral lesions. Neck supple. Full range of motion. No adenopathy or thyromegaly. Cardiovascular examination reveals regular rhythm rate. S1-S2 normal. No S3- S4 murmur. Lungs reveal few scattered rhonchi. No wheezes or crackles. lung sounds are improved today. He still has some residual findings as above. Overall though, things are much improved. Abdomen soft bowel sounds are heard. No active abdominal masses or tenderness. Well-healed scars are noted. Extremities are intact. No sinus clubbing or edema. Skin is without lesion or rash. Brief neurologic examination is nonfocal - Labs CBC & Chem 7: 08/08/16 07:57 08/08/16 07:57 Labs: Abnormal Lab Results - Last 24 Hours (Table) 08/07/16 08/07/16 08/07/16 Range/Units 17:13 19:58 21:06 WBC (3.8-10.6) k/uL RBC (4.30-5.90) m/uL Hgb (13.0-17.5) gm/dL Hct (39.0-53.0) % MCHC (31.0-37.0) g/dL RDW (11.5-15.5) % Neutrophils # (1.3-7.7) k/uL Monocytes # (0-1.0) k/uL PT 17.3 H (9.0-12.0) sec BUN (9-20) mg/dL Creatinine (0.66-1.25) mg/dL Glucose (74-99) mg/dL POC Glucose (mg/dL) 204 H 179 H (75-99) mg/dL 08/08/16 08/08/16 08/08/16 Range/Units 07:03 07:57 07:57 WBC (3.8-10.6) k/uL RBC (4.30-5.90) m/uL Hgb (13.0-17.5) gm/dL Hct (39.0-53.0) % MCHC (31.0-37.0) g/dL RDW (11.5-15.5) % Neutrophils # (1.3-7.7) k/uL Monocytes # (0-1.0) k/uL PT 13.7 H (9.0-12.0) sec BUN 38 H (9-20) mg/dL Creatinine 2.04 H (0.66-1.25) mg/dL Glucose 112 H (74-99) mg/dL POC Glucose (mg/dL) 113 H (75-99) mg/dL 08/08/16 08/08/16 Range/Units 07:57 11:07 WBC 16.1 H (3.8-10.6) k/uL RBC 3.94 L (4.30-5.90) m/uL Hgb 10.9 L (13.0-17.5) gm/dL Hct 36.4 L (39.0-53.0) % MCHC 30.0 L (31.0-37.0) g/dL RDW 16.9 H (11.5-15.5) % Neutrophils # 10.7 H (1.3-7.7) k/uL Monocytes # 1.4 H (0-1.0) k/uL PT (9.0-12.0) sec BUN (9-20) mg/dL Creatinine (0.66-1.25) mg/dL Glucose (74-99) mg/dL POC Glucose (mg/dL) 117 H (75-99) mg/dL Assessment and Plan (1) Acute exacerbation of chronic obstructive airways disease Status: Acute (2) Bronchitis Status: Acute (3) Febrile illness, acute Status: Acute (4) History of intestine transplant Status: Acute (5) EtOH dependence Status: Acute (6) Immunocompromised Status: Acute (7) Pancreatitis of pancreas transplant Status: Acute (8) Pancreatitis of transplanted pancreas Status: Acute (9) Pneumonia Status: Acute (10) Atrial fibrillation Status: Chronic Plan: Plan dated 08/06/2016 The patient continues to improve. His COPD is improved. His pneumonia is clearing on chest x-ray clinically pneumonia is improved. His CAT scan was consistent with bilateral nodular infiltrates which have improved. We'll continue to follow closely. The patient continues on broad-spectrum antibiotic steroids bronchodilators and oxygen therapy and his immunosuppressive regimen. Plan dated 08/07/2016 The patient continues to show improvement. Less short of breath. His COPD is improved. Coughing a bit. Not producing much in the way of phlegm. His chest x-rays improved as well. His chest CAT scan was reviewed. Is consistent with bilateral nodular infiltrates which have also improved. He sitting with his mother today. He does request a regular diet. We'll provide that for him. Hopefully discharge tomorrow. We'll continue to follow closely. Prognosis is guarded. Plan dated 08/08/2016 The patient continues to show improvement. PICC line's were attempted today but failed. Chest x-rays improved. Clinically is auscultation has improved. From our perspective he could be ready for discharge. Chest x-ray initially showed some bilateral nodular infiltrates but that has improved. From the pulmonary standpoint not feeling short of breath. No fever no chills. Not coughing. Not bringing up any phlegm or blood. Time with Patient: Less than 30
[2016-08-08 17:18] LABS: Glucose,Whole Blood 153 mg/dL (75-99)
[2016-08-08 20:06] LABS: Glucose,Whole Blood 326 mg/dL (75-99)
[2016-08-08] MEDS: TAMSULOSIN 0.4 MG CAP.ER.24H PO SCH (20:27)
--- NOTE | 2016-08-08 20:35 | PN ---
DATE OF SERVICE: 08/08/2016 REASON FOR FOLLOWUP: MRSA pneumonia. INTERVAL HISTORY: The patient is afebrile. He is feeling better. He did go down for a PICC line; however, that could not be placed because of the previous PICC line he had. The patient denies any significant chest pain or cough of increased intensity. No abdominal pain. No nausea, vomiting or any diarrhea. On examination, blood pressure 100/65 with a pulse of 76, temperature 97.1. He is 95% on room air. General description is a middle-age male lying in bed in no distress. RESPIRATORY SYSTEM: Unlabored breathing. A coarse breath sounds at the base. No wheeze. HEART: S1, S2 regular rate and rhythm. ABDOMEN: Soft. No tenderness.. LABS: Hemoglobin is 10.9, white count of 16.1. BUN of 38 with creatinine 2.04. DIAGNOSTIC IMPRESSION AND PLAN: Patient with methicillin-resistant Staphylococcus aureus pneumonia. Currently has been Teflaro, chosen because of risk of nephrotoxicity with the vancomycin. Unfortunately, the PICC line could not be placed and will talked to the family to see if Teflaro can be done through a peripheral IV for about a week, which he more likely he has received about 6 days of IV antibiotic therapy here and we will have to avoid the PICC line. Continue supportive care.
[2016-08-08 22:34] LABS: Glucose,Whole Blood 142 mg/dL (75-99)
[2016-08-09] MEDS: HYDROmorphone 1 MG/ML 1 ML SYRINGE IVP PRN ×4 (03:15→14:37)
[2016-08-09] MEDS: IPRATROPIUM-ALBUTEROL 3 ML NEB INHALATION SCH ×3 (07:28→16:39)
[2016-08-09 07:47] LABS: Glucose,Whole Blood 93 mg/dL (75-99)
[2016-08-09] MEDS: INSULIN LISPRO (humaLOG) 300 UNIT/3 ML VIAL SQ SCH ×2 (07:54→11:47)
[2016-08-09] MEDS: CLOPIDOGREL 75 MG TAB PO SCH (07:55)
[2016-08-09] MEDS: CEFTAROLINE FOSAMIL 400 MG in SODIUM CHLORIDE 0.9% 250 ML IVPB SCH (07:55)
[2016-08-09] MEDS: METOPROLOL TARTRATE 50 MG TAB PO SCH (07:56)
[2016-08-09] MEDS: TACROLIMUS 1 MG CAP PO SCH (07:56)
[2016-08-09] MEDS: predniSONE 20 MG TAB PO SCH (07:57)
[2016-08-09] MEDS: SERTRALINE 50 MG TAB PO SCH (07:57)
[2016-08-09] MEDS: LIPASE 5,000/PROTEASE 17,000/AMYLASE 27,0000 PO SCH (07:57)
[2016-08-09] MEDS: CHOLECALCIFEROL 1,000 UNIT TAB PO SCH ×2 (07:57→08:12)
[2016-08-09] MEDS: MAGNESIUM OXIDE 400 MG TAB PO SCH (07:57)
[2016-08-09] MEDS: URSODIOL 300 MG CAP PO SCH (07:58)
[2016-08-09] MEDS: SERTRALINE 100 MG TAB PO SCH (07:58)
[2016-08-09] MEDS: ONDANSETRON 4 MG TAB PO SCH (07:58)
[2016-08-09] MEDS: METOCLOPRAMIDE 10 MG TAB PO SCH (08:12)
[2016-08-09 08:13] VITALS: RESP 18
[2016-08-09] MEDS: METHADONE 10 MG TAB PO SCH (08:14)
[2016-08-09] MEDS: clonazePAM 0.5 MG TAB PO SCH (08:14)
--- NOTE | 2016-08-09 08:14 | PN ---
DATE OF SERVICE: 08/08/2016 PRESENTING COMPLAINT: Cough. INTERVAL HISTORY: This is a patient with 4 organ transplant, presented with multilobar pneumonia growing MRSA. Intervention radiology could get a PICC line placed. Patient to continue with IV antibiotics. The patient still bringing up some sputum. Review of systems done for constitutional, cardiovascular, GI, pulmonary; relevant findings as above. Current medications are reviewed that include IV ceftaroline. On examination, temperature 97.2, pulse 102, respirations 18, blood pressure 112/56, pulse ox 95% on room air. GENERAL APPEARANCE: Sitting up, not in distress. EYES: Pupils equal. Conjunctivae normal. NECK: JVD not raised. Mass not palpable. RESPIRATORY: Effort normal. LUNGS: Improved air entry. CARDIOVASCULAR: First and second sounds normal. No edema. ABDOMEN: Soft, nontender. Liver and spleen not palpable. PSYCHIATRIC: Alert and oriented x3. Mood and affect normal. INVESTIGATIONS: White count 16.1, hemoglobin 10.9. Creatinine is 2.04. ASSESSMENT: 1. Acute bilateral pneumonia, multilobar, from methicillin-resistant Staphylococcus aureus. 2. Acute chronic obstructive pulmonary disease exacerbation in a smoker. 3. Four organ transplant including duodenum, small bowel, pancreas, stomach at the [facility] in 2002 on immunosuppressives. 4. Acute renal failure, probably acute tubular necrosis secondary form sepsis, present on admission. 5. Gastroesophageal reflux disease. 6. Chronic gastroparesis. 7. Chronic deep venous thrombosis. Patient is on Coumadin. 8. Chronic kidney disease stage III from nephrosclerosis. 9. Anemia of chronic disease secondary to kidney disease. 10. Thrombocytopenia from sepsis. 11. Pneumonia causing sepsis on presentation. PLAN: Patient will continue with IV Teflaro. Patient's Coumadin will be resumed since INR has come down. Will put the patient on Lovenox in the meantime.
[2016-08-09 08:18] LABS: INR 1.2 (<1.1); Prothrombin Time 11.6 sec (9.0-12.0)
[2016-08-09 11:36] LABS: Glucose,Whole Blood 117 mg/dL (75-99)
[2016-08-09] MEDS: MULTIVITAMINS, THERA 1 EACH TAB PO SCH (11:40)
[2016-08-09 13:13] VITALS: BMI 26.9
--- NOTE | 2016-08-09 14:50 | PN ---
DATE OF SERVICE: 08/09/2016 Reason for followup is MRSA pneumonia. INTERVAL HISTORY: The patient is afebrile. He is currently feeling better, breathing comfortably, of somewhat decreased intensity. Denies any chest pain, no abdominal pain, no diarrhea. On examination, blood pressure 116/65 with a pulse of 64, temperature 97.4. He is 94% on room air. General description is a middle-aged male, lying in bed in no distress. RESPIRATORY SYSTEM: Unlabored with this the base. No wheeze. HEART: S1, S2. Regular rate and rhythm. ABDOMEN: Soft. No tenderness. LABS: Sputum with MRSA blood culture. DIAGNOSTIC IMPRESSION AND PLAN: Patient with methicillin-resistant Staphylococcus aureus pneumonia. Patient did have borderline kidney function, high risk of nephrotoxicity from vancomycin in the outpatient setting. PICC line could not be placed. He has a peripheral IV. I would recommend keeping the patient on IV ceftaroline 400 q.12 done on the basis of his kidney function for another week with close outpatient followup, we can avoid the PICC line. Continue supportive care.
[2016-08-09 15:52] VITALS: BP 142/82; PULSE 98; TEMP 97.5
--- NOTE | 2016-08-09 15:54 | P.PN ---
Subjective This is a 46-year-old white male, smoker, history of transplant of the stomach, small bowel, pancreas in 2002 in [place]. 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 Patient has been complaining of cough wheezing shortness of breath for the last 2 weeks, and he received so far 2 courses of Levaquin by his primary care physician, but has not been improving. Follow-up chest x-ray showed worsening pneumonia involving both lungs, hence patient was advised to go to the ER for admission. Chest x-ray upon admission showed deformities involving the anterior left rib cage right lower lobe infiltrate was strongly suspected, and left lower lobe nodular infiltrate was also suspected. Considering the patient is immunocompromised, patient was admitted, and this consult was initiated. On the chest x-ray I have noted slight fullness of the mediastinum also. In addition to cough wheezing and shortness of breath, patient has been complaining of low-grade fever, no hemoptysis, no chest pain. Patient was reevaluated today on 08/03/2016, he is definitely feeling better, breathing easier. WBC count is 6.8 hemoglobin is 10. INR is 1.5 electrolytes are normal except for elevated potassium of 5.5 renal functioning is improving creatinine is down to 1.78 from 2.26 on admission. Influenza A and B are negative. Patient has no fever, and his vital signs are stable. Has some occasional wheezing, but overall significantly improved compared to yesterday. Patient was seen on 08/04/2016, continues to gradually improve, no cough no fever no chills no hemoptysis no chest pain. Patient is on multiple antibiotics for what seems to be bilateral pneumonia with nodular infiltrates. Patient is immunocompromised, overall he is doing much better today compared to 2 days ago. SGOT is 8.2 hemoglobin is 9.4 electrolytes and renal profile were noted, electrolytes are normal BUN is 27 creatinine is 1.41/improving. Blood cultures are negative so far. Sputum cultures are pending, patient was able to submit a sputum sample today. Seen on 08/05/2016, patient continues to gradually improve, no cough no wheezing no shortness of breath no fever no chills no hemoptysis and no chest pain. Labs were reviewed,CBC is unremarkable, INR is 1.8 basic metabolic profile is normal renal profile is significantly improved. Progress note dated 08/06/2016 The patient looks well. Continues to improve. Seen by my partner yesterday. Continues to have less shortness of breath coughing or wheezing. A bit short of breath on exertion. Chest x-rays improved. The patient is not coughing up any phlegm or blood. No nausea vomiting or diarrhea. No chest pain or chest discomfort. The patient's initial presentation was that of COPD exacerbation a right lower lobe pneumonia. This gentleman has a history of stomach transplant small bowel pancreas transplant 2002 [facility]. He has a history of chronic atrial fibrillation transplant graft thrombosis requiring anticoagulation and IVC is immunocompromised. Again, the patient does seem to be getting better. Much less short of breath. Chest x-rays improving. Progress note dated 08/07/2016 46-year-old gentleman with a history of stomach transplant small bowel and pancreas transplant back in 2002 [facility]. He has a history of chronic atrial fibrillation transplant graft thrombosis and he is immunocompromised because of his immunosuppressants. He was admitted with a diagnosis of COPD exacerbation and right lower lobe pneumonia. He states he might be going home tomorrow. Feeling better. Still little fatigued and weak. A little short of breath. No nausea vomiting or diarrhea. No fever currently. Is producing a small amount of phlegm when he coughs not much. Overall his respiratory status has improved. Progress note dated 08/08/2016 The patient looks pretty well from the pulmonary standpoint. He is a 46-year- old male with a history of stomach and small bowel as well as pancreas transplant back in 2002 [facility]. He has a history of chronic atrial fibrillation, transplant graft thrombosis, he is immunocompromised because of his immunosuppressive medications. He was admitted with a diagnosis of COPD exacerbation with right lower lobe pneumonia. Clinically and radiographically, he is much improved a PICC line was attempted today but apparently fell. He needs to go home on IV antibiotics. I'm not sure what the plan will be. No fever no chills. Not coughing up any phlegm or blood. Feeling much better from the pulmonary standpoint. The patient was seen again today 08/09/2016 in followfollow-up on the regular medical floor. He is awake and alert in no acute distress. He does have MRSA infection in his sputum and he is going to go home on IV antibiotics. He is currently afebrile. Maintaining good O2 saturations in the mid 90s on room air. Objective - Vital Signs Vital signs: Vital Signs Temp 97.4 F L 08/09/16 07:00 Pulse 64 08/09/16 07:00 Resp 18 08/09/16 07:00 BP 116/65 08/09/16 07:00 Pulse Ox 94 L 08/09/16 07:00 Intake & Output 08/08/16 08/09/16 08/09/16 18:59 06:59 18:59 Intake Total 1450 1080 Output Total 2300 650 200 Balance -850 430 -200 Weight 95.1 kg 95.1 kg Intake: IV 600 0.9 600 Intake, IV Titration 250 Amount Ceftaroline Fosamil 400 250 mg In Sodium Chloride 0.9 % 250 ml @ 250 mls/hr IVPB Q12HR GUY Rx#: [id number] Oral 600 1080 Output: Urine 2300 650 200 Other: Voiding Method Toilet Toilet Toilet # Voids 3 2 - Exam GENERAL EXAM: Alert, active, comfortable in no apparent distress. HEAD: Normocephalic. EYES: Normal reaction of pupils, equal size. NOSE: Clear with pink turbinates. THROAT: No erythema or exudates. NECK: No masses, no JVD. CHEST: No chest wall deformity. LUNGS: Equal air entry with T scattered rhonchi. CVS: S1 and S2 normal with no audible murmurs, regular rhythm. ABDOMEN: No hepatosplenomegaly, normal bowel sounds, no guarding or rigidity. SPINE: No scoliosis or deformity SKIN: No rashes CENTRAL NERVOUS SYSTEM: No focal deficits, tone is normal in all 4 extremities. extremities: No significant peripheral edema. No clubbing, no cyanosis. Peripheral pulses are intact. - Labs CBC & Chem 7: 08/08/16 07:57 08/08/16 07:57 Labs: Abnormal Lab Results - Last 24 Hours (Table) 08/08/16 08/08/16 08/08/16 Range/Units 17:17 20:02 22:32 POC Glucose (mg/dL) 153 H 326 H 142 H (75-99) mg/dL 08/09/16 Range/Units 11:33 POC Glucose (mg/dL) 117 H (75-99) mg/dL Microbiology - Last 24 Hours (Table) 08/04/16 16:30 Gram Stain - Final Sputum Sputum Culture - Final Methicillin resist S. aureus Assessment and Plan Plan: Impression: 1 Acute exacerbation of COPD 2 acute bilateral pneumonia , positive for MRSA. 3 history of stomach small bowel and pancreatic transplant, patient is on immunosuppressive therapy 4 suspect chronic renal failure, creatinine is improving compared to admission creatinine, no baseline for comparison. 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 plan: The patient was seen and evaluated by Dr. Redmond. He is cleared for discharge from the pulmonary standpoint. ID is on the case regarding home IV antibioticshe'll be seen in our office in 1 week's time. He is however encouraged to call sooner with any recurrence of symptoms or other questions or concerns.
[2016-08-09] MEDS ORDERED: ENOXAPARIN 100 MG/ML SYRINGE SQ STA (16:25)
[2016-08-09] MEDS ORDERED: ENOXAPARIN 100 MG/ML SYRINGE SQ SCH (21:00)
--- NOTE | 2016-08-13 18:52 | DS ---
DATE OF ADMISSION: 08/02/2016 DATE OF DISCHARGE: 08/09/2016 FINAL DIAGNOSIS(ES): 1. Acute bilateral pneumonia, multilobar, from Methicillin-resistant Staph aureus in an immunosuppressed patient. 2. Acute chronic obstructive pulmonary disease exacerbation in an ex-smoker. 3. Four organ transplant including duodenum, small bowel, pancreas and stomach at the [facility] in 2002 on immunosuppression. 4. Acute renal failure, probably acute tubular necrosis secondary from sepsis present on admission. 5. Gastroesophageal reflux disease. 6. Chronic gastroparesis. 7. Chronic deep venous thrombosis, on Coumadin. 8. Chronic kidney stage III from nephrosclerosis. 9. Anemia of chronic disease secondary to ( ) disease. 10. Thrombocytopenia with sepsis. 11. Pneumonia causing sepsis on presentation. HOSPITAL COURSE: This is a patient with ( ) bilateral severe sepsis, pneumonia growing MRSA, doing much better at the time of discharge. The patient could not have a PICC line placed, hence he will have a peripheral line to complete a course of antibiotics. CONSULTATION: Dr. Redmond from pulmonary, Dr. Zhao from infectious disease. The patient being sent in for overlap of Lovenox and Coumadin until INR can come up. BUN and creatinine were 38 and 2.04. DISCHARGE MEDICATIONS: 1. Calcium citrate vitamin D3 1 tablet p.o. b.i.d. 2. Plavix 75 mg p.o. daily. 3. Ferrous sulfate 325 mg p.o. b.i.d. 4. Magnesium gluconate 5 mg p.o. b.i.d. 5. Lopressor 50 mg p.o. b.i.d. 6. Men's multivitamin 1 tablet p.o. daily. 7. Prilosec 40 mg p.o. b.i.d. 8. Zoloft 100 mg p.o. daily. 9. Prograf 1 mg p.o. q.h.s. 10. Prozac 20 mg p.o. with breakfast. 11. Flomax 0.4 mg p.o. q.h.s. 12. Actigall 300 mg p.o. b.i.d. 13. Klonopin 0.5 mg p.o. b.i.d. 14. Pro-Air 2 puffs q.4 p.r.n. 15. Vitamin D3, 10,000 units p.o. daily. 16. Hydrocortisone 50 mg p.o. b.i.d. 17. Zantac 1 capsule p.o. b.i.d. 18. Reglan 10 mg p.o. b.i.d. 19. Zoloft 50 mg p.o. daily. 20. Zofran 4 mg p.o. t.i.d. 21. Colace 100 mg p.o. b.i.d. 22. Coumadin 3 mg p.o. daily. 23. Symbicort 160/4.5, 2 puffs b.i.d. 24. Methadone 10 mg p.o. b.i.d. 25. Bactrim DS half tablet p.o. Saturday, Saturday and Saturday. 26. ( ) 1 mg IV piggyback q.12 14. 27. Lovenox 100 mg subcu q.h.s. 5 days or until INR is therapeutic. 28. Atrovent HFA 2 puffs q.i.d. Follow up with Dr. Zhao on 08/16, follow-up with Dr. Zhao on 08/16/2016. LABS: BMP, CBC, INR on 08/13/2016. LUNGS: Decreased breath sounds. CARDIOVASCULAR: First and second sounds normal. PSYCH: Alert and oriented x3. DC planning more than 35 minutes.
== END 2016-08-09 16:53 | disposition home health service (06) | DRG 871 ==
LOC: EC 13:36 → 5MS5E 17:34 → 6SEL 22:07 → 5MS5E 08-05 23:27
PROVIDERS: ADMIT Hospitalist; ATTEND Hospitalist
PROC: B51P1ZZ Fluoroscopy of Bilateral Upper Extremity Veins using Low Osmolar Contrast (ICD-10-PCS; principal; 2016-08-08 11:20)
DX: A41.02 Sepsis due to Methicillin resistant Staphylococcus aureus (principal); J15.212 Pneumonia due to Methicillin resistant Staphylococcus aureus; N17.0 Acute kidney failure with tubular necrosis; I81 Portal vein thrombosis; Z94.83 Pancreas transplant status; D69.59 Other secondary thrombocytopenia; J44.0 Chronic obstructive pulmonary disease with (acute) lower respiratory infection; K31.84 Gastroparesis; N18.3 Chronic kidney disease, stage 3 (moderate); Z94.82 Intestine transplant status; E27.40 Unspecified adrenocortical insufficiency; J44.1 Chronic obstructive pulmonary disease with (acute) exacerbation; I48.2 Chronic atrial fibrillation; E86.0 Dehydration; I12.9 Hypertensive chronic kidney disease with stage 1 through stage 4 chronic kidney disease, or unspecified chronic kidney disease; R65.20 Severe sepsis without septic shock; D63.8 Anemia in other chronic diseases classified elsewhere; F10.20 Alcohol dependence, uncomplicated; F17.210 Nicotine dependence, cigarettes, uncomplicated; K21.9 Gastro-esophageal reflux disease without esophagitis; Z79.01 Long term (current) use of anticoagulants; Z79.02 Long term (current) use of antithrombotics/antiplatelets; Z79.899 Other long term (current) drug therapy; Z87.01 Personal history of pneumonia (recurrent); Z88.5 Allergy status to narcotic agent; Z88.8 Allergy status to other drugs, medicaments and biological substances; Z94.89 Other transplanted organ and tissue status; Z53.8 Procedure and treatment not carried out for other reasons
CPT/HCPCS: 36005; 36415; 36569; 71020; 71250; 75820; 76937; 77001; 80048; 80053; 80202; 81001; 83605; 83735; 85025; 85610; 87040; 87070; 87077; 87186; 87205; 87449; 87502; 94640; 94760; 96361; 96374; 96375; 99285

== ENCOUNTER → 2016-08-22 | Outpatient (CLI) | payer MEDICARE, BC, OTHER ==
[2016-08-22 13:23] LABS: Potassium 4.7 mmol/L (3.5-5.1); Total Bilirubin 0.4 mg/dL (0.2-1.3); Total Protein 6.9 g/dL (6.3-8.2)
[2016-08-22 13:25] LABS: Anisocytosis Slight; CH 26.6; CHCM 29.1; HCT 34.1 % (39.0-53.0); HDW 2.91; HGB 10.1 gm/dL (13.0-17.5); Hypochromasia Marked; Large Platelets Flag Marked; MCH 27.3 pg (25.0-35.0); MCHC 29.8 g/dL (31.0-37.0); MCV 91.8 fL (80.0-100.0); RBC 3.71 m/uL (4.30-5.90); RDW 16.2 % (11.5-15.5); WBC 11.4 k/uL (3.8-10.6); WBC (Perox) 13.21
[2016-08-22 15:28] LABS: Add Differential Manual Differential
[2016-08-22 15:29] LABS: Large Platelets Present; Nucleated Red Blood Cells 0 /100 WBC (0-0); Total Cells Counted 100
[2016-08-22 15:30] LABS: Target Cells Present
== END | disposition home or self-care (01) ==
LOC: LABWHC1 12:22
PROVIDERS: ATTEND Internal Medicine Gastroenterology
DX: J18.9 Pneumonia, unspecified organism (principal); R94.5 Abnormal results of liver function studies
CPT/HCPCS: 36415; 80053; 85025

== ENCOUNTER → 2016-08-31 | Outpatient (CLI) | payer MEDICARE, BC, OTHER ==
[2016-08-31 11:11] LABS: Anisocytosis Slight; Basophils # (A) 0.1 k/uL (0-0.2); Basophils % (A) 1 %; CH 26.7; CHCM 29.5; Eosinophils # (A) 0.6 k/uL (0-0.7); Eosinophils % (A) 5 %; HCT 36.5 % (39.0-53.0); HDW 3.15; Hypochromasia Marked; Large Platelets Flag Marked; Luc # (Auto) 0.35; Luc % (Auto) 3; Lymphocytes # (A) 2.9 k/uL (1.0-4.8); Lymphocytes % (A) 26 %; MCH 27.4 pg (25.0-35.0); MCV 91.1 fL (80.0-100.0); Mean Platelet Volume 12.5; Monocytes % (A) 10 %; Neutrophils # (A) 6.1 k/uL (1.3-7.7); Neutrophils % (A) 56 %; RBC 4.01 m/uL (4.30-5.90); RDW 16.5 % (11.5-15.5); WBC 10.9 k/uL (3.8-10.6); WBC (Perox) 10.24
[2016-08-31 12:16] LABS: Manual Review Performed
[2016-08-31 12:19] LABS: Target Cells Present; Toxic Granulation Present
[2016-08-31 12:20] LABS: Large Platelets Present
[2016-08-31 12:36] LABS: Calcium 9.9 mg/dL (8.4-10.2); Potassium 4.4 mmol/L (3.5-5.1); Total Bilirubin 0.2 mg/dL (0.2-1.3)
[2016-09-07 16:36] LABS: Pregnenolone <5 ng/dL (13-208); Total, Free (MN + NMN) 80 pg/mL (< OR = 205)
== END | disposition home or self-care (01) ==
LOC: LABWHC1 09:45
PROVIDERS: ATTEND Family Medicine
DX: E27.40 Unspecified adrenocortical insufficiency (principal)
CPT/HCPCS: 36415; 80053; 82024; 82533; 83835; 84140; 85025

== ENCOUNTER 2016-09-03 19:39 | Emergency (ER) | payer MEDICARE, BC, OTHER ==
[2016-09-03] MEDS ORDERED: SODIUM CHLORIDE 0.9% 1,000 ML IV STA (21:05)
[2016-09-03] MEDS ORDERED: HYDROmorphone 1 MG/ML 1 ML SYRINGE IVP STA ×2 (21:05→23:33)
[2016-09-03 21:27] LABS: Anisocytosis Slight; Basophils # (A) 0.1 k/uL (0-0.2); Basophils % (A) 1 %; CH 26.9; CHCM 30.3; Calcium 9.2 mg/dL (8.4-10.2); Eosinophils # (A) 0.4 k/uL (0-0.7); Eosinophils % (A) 4 %; HCT 33.4 % (39.0-53.0); HDW 3.12; HGB 9.9 gm/dL (13.0-17.5); Hypochromasia Marked; Large Platelets Flag Marked; Luc # (Auto) 0.45; Luc % (Auto) 4; Lymphocytes # (A) 2.8 k/uL (1.0-4.8); Lymphocytes % (A) 26 %; MCH 26.6 pg (25.0-35.0); MCHC 29.8 g/dL (31.0-37.0); MCV 89.2 fL (80.0-100.0); Mean Platelet Volume 11.9; Monocytes # (A) 1.1 k/uL (0-1.0); Monocytes % (A) 10 %; Neutrophils # (A) 5.8 k/uL (1.3-7.7); Neutrophils % (A) 55 %; Potassium 4.3 mmol/L (3.5-5.1); RBC 3.74 m/uL (4.30-5.90); RDW 16.4 % (11.5-15.5); Total Bilirubin 0.3 mg/dL (0.2-1.3); Total Protein 6.9 g/dL (6.3-8.2); WBC 10.5 k/uL (3.8-10.6); WBC (Perox) 10.82
--- NOTE | 2016-09-03 21:29 | XR ---
EXAMINATION TYPE: XR KUB DATE OF EXAM: 09/03/2016 9:18 PM COMPARISON: CT abdomen pelvis dated 04/18/2016. HISTORY: Generalized abdominal pain TECHNIQUE: FINDINGS: Bowel gas similar in appearance to the prior exams with mild prominence of the hepatic flex ure colonic loops. Surgical suture is seen in the left mid abdomen. Stool is noted within the rectum. Posterior bowel gas is seen within the left mid abdomen. This is similar to the prior exam. No abnor mal calcifications within the abdomen or pelvis. Osseous structures appear intact. IMPRESSION: Bowel gas is similar in appearance to the prior exam with mild gaseous prominence of the hepatic flexure/cecum. Stool and air are noted within the the rectum suggesting a nonobstructive smita l gas pattern.
--- NOTE | 2016-09-03 21:35 | ED ---
Abdominal Pain HPI - General Chief Complaint: Abdominal Pain Stated Complaint: abdominal Pain Time Seen by Provider: 09/03/16 20:42 Source: patient, RN notes reviewed, old records reviewed Mode of arrival: ambulatory Limitations: no limitations - History of Present Illness Initial Comments: There is a 46-year-old male presents emergency Department with chief complaint of abdominal distention and discomfort for the past 2 days. He patient reports that he's had a history of pancreatitis frequently however he quit drinking in March. Patient reports that this the pain is mainly left upper quadrant but does radiate all over the entire abdomen. Patient states it feels similar to some previous fever titers episodes. Patient denies any fever or chills. He states that he has had some diarrhea but relatively normal bowel movements. No nausea or vomiting. Patient has a 6 symptoms of surgical history including pancreas, duodenum, jejunum transplant. Patient reports that this occurred because he had gastroparesis. - Related Data Home Medications Medication Instructions Recorded Confirmed Calcium Citrate/Vitamin D3 1 tab PO BID 09/02/13 09/03/16 [Calcium Citrate - Vit D3 Tab] Clopidogrel [Plavix] 75 mg PO QAM 09/02/13 09/03/16 Ferrous Gluconate 325 mg PO BID 09/02/13 09/03/16 Magnesium Gluconate [Magonate] 500 mg PO BID 09/02/13 09/03/16 Multivitamin [Men's Multi-Vitamin] 1 tab PO QAM 09/02/13 09/03/16 Sertraline [Zoloft] 100 mg PO QAM 09/02/13 09/03/16 Tacrolimus [Prograf] 1 mg PO HS 09/02/13 09/03/16 Tacrolimus [Prograf] 2 mg PO AC-BRKFST 09/02/13 09/03/16 Ursodiol [Actigall] 300 mg PO BID 09/02/13 09/03/16 clonazePAM [KlonoPIN] 0.5 mg PO BID 09/02/13 09/03/16 Albuterol Sulfate [Proair 2 puff PO RT-Q4H PRN 09/22/15 09/03/16 Respiclick] Cholecalciferol (Vitamin D3) 10,000 unit PO QAM 09/22/15 09/03/16 [Vitamin D3] Hydrocortisone 15 mg PO BID 09/22/15 09/03/16 Ldhqky-Rykrnlvn-Wfbrndq [Zenpep 10] 1 cap PO BID 09/22/15 09/03/16 Metoclopramide [Reglan] 10 mg PO BID 09/22/15 09/03/16 Sertraline [Zoloft] 50 mg PO QAM 09/22/15 09/03/16 Warfarin [Coumadin] 3 mg PO HS 06/07/16 09/03/16 Budesonide-Formot 160-4.5 Mcg 2 puff PO RT-BID 08/02/16 09/03/16 [Symbicort 160-4.5 Mcg Inhaler] Methadone HCl 10 mg PO BID 08/02/16 09/03/16 Sulfamethoxazole/Trimethoprim 0.5 tab PO MOWEFR 08/02/16 09/03/16 [Bactrim DS 800-160 mg] Ipratropium [place] [Atrovent Hfa] 2 puff INHALATION RT-BID 09/03/16 09/03/16 Omeprazole 40 mg PO QAM 09/03/16 09/03/16 Allergies Allergy/AdvReac Type Severity Reaction Status Date / Time heparin AdvReac Unknown Verified 09/03/16 21:14 ketorolac tromethamine AdvReac migraines Verified 09/03/16 21:14 [From Toradol] morphine AdvReac Itching Verified 09/03/16 21:14 Review of Systems ROS Statement: Those systems with pertinent positive or pertinent negative responses have been documented in the HPI. ROS Other: All systems not noted in ROS Statement are negative. 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, gastritis, gastroparesis, pt regurgitates after eating , past pancreatitis, adrenal insufficiency, chronic anemia, tracheobronchitis, pt stated stool is always on the loose side.BRONCHITIS History of Any Multi-Drug Resistant Organisms: MRSA Date of last positivie culture/infection: 08/04/16 MDRO Source:: sputum Additional Past Surgical History / Comment(s): STATES MULTIPLE STOMACH SX, 2002 HAD 4 ORGAN TRANSPLANT: SMALL BOWEL, PANCREAS, duodenum, AND STOMACH performed at the [facility], knee surgical repair after injury on a barbed wire fence, as he had heart surgery for closed valves, EGDs and colonoscopies with last EGD 08/08/15. Past Anesthesia/Blood Transfusion Reactions: No Reported Reaction Additional Past Anesthesia/Blood Transfusion Reaction / Comment(s): STATES R/T TO MULTIPLE SX HE REQUIRES A LOT OF MEDICATION for anesthesia. He has had multiple blood transfusions without reaction. Past Psychological History: Anxiety, Depression Additional Psychological History / Comment(s): Pt resides with his significant other. He is independent. He drives. Smoking Status: Former smoker Past Alcohol Use History: None Reported Additional Past Alcohol Use History / Comment(s): Started smoking about 1981 and quit in 2011 Past Drug Use History: None Reported - Past Family History Mother History Unknown: Yes Additional Family Medical History / Comment(s): pt is adopted, does not know any hx Father History Unknown: Yes Additional Family Medical History / Comment(s): pt is adopted, does not know any hx General Exam - General Exam Comments Initial Comments: This is a pleasant 46-year-old male. Patient does appear to be in some discomfort. Limitations: no limitations General appearance: alert, in no apparent distress Head exam: Present: atraumatic, normocephalic, normal inspection Eye exam: Present: normal appearance, PERRL, EOMI. Absent: scleral icterus, conjunctival injection, periorbital swelling ENT exam: Present: normal exam, mucous membranes moist Neck exam: Present: normal inspection. Absent: tenderness, meningismus, lymphadenopathy Respiratory exam: Present: normal lung sounds bilaterally. Absent: respiratory distress, wheezes, rales, rhonchi, stridor Cardiovascular Exam: Present: regular rate, normal rhythm, normal heart sounds. Absent: systolic murmur, diastolic murmur, rubs, gallop, clicks GI/Abdominal exam: Present: soft, distended, tenderness (diffuse tenderness. ). Absent: guarding, rebound, rigid, normal bowel sounds Extremities exam: Present: normal inspection, full ROM, normal capillary refill. Absent: tenderness, pedal edema, joint swelling, calf tenderness Back exam: Present: normal inspection Neurological exam: Present: alert, oriented X3, CN II-XII intact Psychiatric exam: Present: normal affect, normal mood Skin exam: Present: warm, dry, intact, normal color. Absent: rash Course Vital Signs 05/15/17 05/15/17 05/16/17 20:27 23:48 00:45 Temperature 99.0 F 98 F 98.2 F Pulse Rate 88 75 74 Respiratory 18 20 18 Rate Blood Pressure 104/61 130/57 163/56 O2 Sat by Pulse 95 96 95 Oximetry Medical Decision Making - Medical Decision Making 46 year old male with significant past medical history of multiple abdominal surgeries presenting with abdominal distension, diarrhea, and abdominal pain. Lab work reviewed, no significant acute process. PAtient CT abdomen shows previous clots that are known within abdominal ariteries, these are stable. No other significant process. PAtient informed of results, discussed case with Dr. Braga. PAtient will be discharged at this time. PAtient later relates that he has been starting probiotics, and thinks that this has been related to his knew symptoms. They have follow up with Dr. Worley within 2 weeks. Patient agrees to treatment plan and return paramteres discussed. - Lab Data Result diagrams: 09/03/16 21:00 09/03/16 21:00 Lab Results 09/03/16 09/03/16 09/03/16 Range/Units 21:00 21:00 21:00 WBC 10.5 (3.8-10.6) k/uL RBC 3.74 L (4.30-5.90) m/uL Hgb 9.9 L (13.0-17.5) gm/dL Hct 33.4 L (39.0-53.0) % MCV 89.2 (80.0-100.0) fL MCH 26.6 (25.0-35.0) pg MCHC 29.8 L (31.0-37.0) g/dL RDW 16.4 H (11.5-15.5) % Plt Count 223 (150-450) k/uL Neutrophils % 55 % Lymphocytes % 26 % Monocytes % 10 % Eosinophils % 4 % Basophils % 1 % Neutrophils # 5.8 (1.3-7.7) k/uL Lymphocytes # 2.8 (1.0-4.8) k/uL Monocytes # 1.1 H (0-1.0) k/uL Eosinophils # 0.4 (0-0.7) k/uL Basophils # 0.1 (0-0.2) k/uL Polychromasia Present Hypochromasia Marked Anisocytosis Slight Sodium 139 (137-145) mmol/L Potassium 4.3 (3.5-5.1) mmol/L Chloride 102 (98-107) mmol/L Carbon Dioxide 28 (22-30) mmol/L Anion Gap 9 mmol/L BUN 21 H (9-20) mg/dL Creatinine 1.62 H (0.66-1.25) mg/dL Est GFR (MDRD) Af Amer 55 (>60 ml/min/1.73 sqM) Est GFR (MDRD) Non-Af 46 (>60 ml/min/1.73 sqM) Glucose 85 (74-99) mg/dL Plasma Lactic Acid Barrie 1.0 (0.7-2.0) mmol/L Calcium 9.2 (8.4-10.2) mg/dL Total Bilirubin 0.3 (0.2-1.3) mg/dL AST 20 (17-59) U/L ALT 16 L (21-72) U/L Alkaline Phosphatase 84 (38-126) U/L Total Protein 6.9 (6.3-8.2) g/dL Albumin 3.9 (3.5-5.0) g/dL Amylase 126 H (30-110) U/L Lipase 102 (23-300) U/L - Radiology Data Radiology results: report reviewed REdomonstrated total colectomy, capacious anastomosis, no perforation. 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 No obstructing left renal calculus. Disposition Clinical Impression: Abdominal pain Disposition: HOME SELF-CARE Condition: Good Instructions: Abdominal Pain (ED) Additional Instructions: Patient should follow-up with primary care provider [id number] hours. Continue medication regimen. Follow-up with GI specialist as soon as possible. Return to emergency department if any alarming signs or symptoms occur. Referrals: Ras Zhao MD [Primary Care Provider] - 1-2 days Alycia Worley MD [STAFF PHYSICIAN] - 1-2 days Time of Disposition: 00:29
[2016-09-03 21:41] LABS: Polychromasia Present
[2016-09-03] MEDS ORDERED: SODIUM CHLORIDE 0.9% 1,000 ML IV SCH (22:15)
[2016-09-03] MEDS ORDERED: RX INFO: IV CONTRAST WAS GIVEN 1 EACH MISC MISCELLANE PRN (22:33)
--- NOTE | 2016-09-03 23:51 | CT ---
EXAM: CT Abdomen and Pelvis With Intravenous Contrast. CLINICAL HISTORY: Reason: Pain TECHNIQUE: Axial computed tomography images of the abdomen and pelvis with intravenous contrast. CTDI is 14.1 mGy and DLP is 960.3 mGy-cm. This CT exam was performed using one or more of the following dose reduction techniques: automated exposure control, adjustment of the mA and/or kV according to patient size, and/or use of iterative reconstruction technique. COMPARISON: 04/18/16. FINDINGS: Lung bases are clear. Once again, there is abnormal visceral arterial supply. Below the celiac artery there is an occluded branch from the anterior aorta which could be the [place] SMA or a large congenitally aberrant gastroduodenal artery. More inferiorly, there is a branch from the infrarenal anterior abdominal aorta which ramifies upon distal mesenteric arteries. This is a large branch with a fairly uniform diameter of 2.3 cm, stable in the interval. This vessel could reflect an adaptive response to provide collateral flow from the aforementioned occlusion. This could also be postsurgical in nature. Regardless, this appearance is stable. There is no occlusion of this mesenteric artery. Stable occluded inferior mesenteric artery. No evidence of acute mesenteric ischemia. Near total colectomy again noted. Capacious ileocolic anastomosis without perforation or high-grade obstruction. Presumed operative change of the proximal small bowel. Gallbladder is not identified. Iliac atherosclerosis without high-grade narrowing. 2 mm upper pole left renal calculus. No ureteral stone or hydronephrosis. Bilateral cortical hypodensities that are too small characterize. Splenectomy. Healed left rib fractures. No acute fracture. IMPRESSION: Redemonstrated near total colectomy. Capacious anastomosis, but no perforation or high-grade obstruction. 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 Nonobstructing left renal calculus. Other incidental findings as discussed above.
[2016-09-04 00:47] VITALS: BP 163/56; PULSE 74; RESP 18; TEMP 98.2
== END 2016-09-04 00:46 | disposition home or self-care (01) ==
LOC: EC 19:39
DX: R10.12 Left upper quadrant pain (principal); R19.7 Diarrhea, unspecified; K21.9 Gastro-esophageal reflux disease without esophagitis; J44.9 Chronic obstructive pulmonary disease, unspecified; I48.91 Unspecified atrial fibrillation; F32.9 Major depressive disorder, single episode, unspecified; F41.9 Anxiety disorder, unspecified; D64.9 Anemia, unspecified; Z87.891 Personal history of nicotine dependence; Z79.51 Long term (current) use of inhaled steroids; Z79.899 Other long term (current) drug therapy; Z79.02 Long term (current) use of antithrombotics/antiplatelets; Z79.01 Long term (current) use of anticoagulants; Z88.6 Allergy status to analgesic agent; Z88.5 Allergy status to narcotic agent; Z88.8 Allergy status to other drugs, medicaments and biological substances; Z87.19 Personal history of other diseases of the digestive system; Z94.83 Pancreas transplant status; Z94.82 Intestine transplant status; Z94.89 Other transplanted organ and tissue status
CPT/HCPCS: 36415; 80053; 82150; 83605; 83690; 85025; 74000; 74177; 99285; 96374; 96376; 96361 ×3; Q9967; J1170

== ENCOUNTER → 2016-11-06 | Outpatient (CLI) | payer MEDICARE, BC, OTHER ==
--- NOTE | 2016-11-06 16:32 | MR ---
EXAMINATION TYPE: MR lumbar spine wo con DATE OF EXAM: 11/06/2016 COMPARISON: CT abdomen and pelvis September 03, 2016 HISTORY: low back pain x8 months TECHNIQUE: Multiplanar, multisequence imaging of the lumbar spine is performed without IV contrast. FINDINGS: Sagittal images of the lumbar spine show vertebral body heights and alignment to appear sat isfactory. Multilevel disc desiccation is present most prominent in lower lumbar levels. Fairly moder ate disc space narrowing L4-L5 level is seen. There is mild to moderate disc space narrowing L5-S1 le linette. Posterior disc herniation L4-L5 level as seen on sagittal images The conus medullaris is normal in position and signal ending at T12-L1 level. There is heterogeneous diminished T1 and increased T2 signal consistent with Modic type I degenerative change involving right L4-L5 vertebra. No significan t spurring is seen. Axial images show the T12-L1, L1-L2, and L2-L3 levels all to appear within normal limits. Axial images at the L3-L4 level show mild facet degenerative changes bilaterally. There is broad-base d right paracentral disc protrusion effacing anterolateral thecal sac on axial image 12. Bilateral ne ural foramina remain patent. Axial images at L4-L5 level show mild facet degenerative changes bilaterally. There is broad-based ri ght paracentral disc protrusion mildly effacing anterolateral thecal sac and axial image 8. There is moderate right and mild left-sided anterior inferior neural foraminal narrowing at this level identif ied. Axial images at L5-S1 level show mild facet degenerative changes bilaterally. Spinal canal is preserv ed and bilateral neural foramina are patent. No suspicious retroperitoneal findings are seen. IMPRESSION: Multilevel degenerative changes in the mid to lower lumbar spine as detailed above with f indings most prominent L4-L5 level noted.
== END | disposition home or self-care (01) ==
LOC: RADMRIMAIN 14:45
PROVIDERS: ATTEND Family Medicine
DX: M47.26 Other spondylosis with radiculopathy, lumbar region (principal)
CPT/HCPCS: 72148

== ENCOUNTER 2016-12-20 10:51 | Day surgery (SDC) | payer MEDICARE, BC, OTHER ==
[2016-12-18 15:56] VITALS: BMI 28.3
[~2016-12-20 10:51] MED LIST: LACTATED RINGERS 1,000 ML IV SCH; LIDOCAINE 1% 20 ML VIAL (10MG/ML) FOR IV START INTRADERMA PRN
[2016-12-20 11:55] LABS: Glucose,Whole Blood 96 mg/dL (75-99)
[2016-12-20 11:57] VITALS: TEMP 97.8
[2016-12-20] MEDS ORDERED: LIDOCAINE 1% INJ 10MG/ML (20 ML MDV) ONE (12:30)
[2016-12-20] MEDS ORDERED: PROPOFOL 10 MG/ML 20 ML VIAL IV ONE (12:30)
--- NOTE | 2016-12-20 13:02 | P.PCN ---
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 Lately has been having diarrhea with bowel movements anywhere from 5-6 a day which are loose to watery in consistency but denies any blood or mucus in the stool. Procedure performed: Esophagogastroduodenoscopy with biopsy Colonoscopy with biopsy Preoperative diagnosis: Anesthesia: [facility] Procedure: After informed consent was obtained from the patient was brought into the endoscopy unit and IV sedation was administered by anesthesia under continuous monitoring. Initially upper endoscopy was done. The Olympus GF 160 video endoscope was inserted inserted into the mouth and esophagus intubated without any difficulty and was gradually advanced into the stomach and duodenum and carefully examined. The bulb and second part of the duodenum appeared normal. Biopsies were done from this area to rule out infectious etiology The scope was then withdrawn into the stomach adequately insufflated with air and upon careful examination the antrum had mild gastritis and biopsies were done from this area. The body, cardia and fundus appeared normal. small amount of retained food noted in the stomach.The scope was then withdrawn into the esophagus. The GE junction was located at 47 cm to the incisors. There was a small island of Marie's appearing mucosa measuring 5 mm proximal to the GE junction and this was biopsied. It appeared regular with no erythema erosions or ulcerations. Rest of the esophagus appeared normal. Patient tolerated the procedure well. At this time the patient continued to remain sedation. Initial digital rectal examination was normal. Olympus CF 160 video colonoscope was then inserted into the rectum and gradually advanced to the sigmoid colon with a recurrent anastomotic site was visualized at approximately 35 to the medicine the anal verge. The scope was advanced into a blind loop that extended about 30 cm which appeared normal. At this time the scope was advanced through the anastomosis much more proximally and about 60 cm of the distal ileum was visualized and appeared normal. At the ileocolic anastomosis there was some friability of the mucosa noted and multiple biopsies were done from this area. Also biopsies from the distal ileum to rule out any infectious etiology as a cause of diarrhea. The, sigmoid colon and rectum appeared normal. Retroflexion was performed in the rectum and no lesions were noted. Patient tolerated the procedure well. Impression: 1. Upper endoscopy revealed mild antral gastritis, small amount of retained food in the stomach and short segment Marie's esophagus 2. Colonoscopy revealed mild friability of the left colic anastomosis located at 30 cm from the anal verge with normal-appearing distal ileum. Recommendations: Findings of this examination were discussed with the patient as well as his family. He was advised to follow with the biopsy results. he was advised to follow with the biopsy results. He'll be seen in office in 3-4 weeks. Implants: Indications for Procedure: Operative Findings: Description of Procedure:
[2016-12-20 13:06] VITALS: RESP 16
[2016-12-20 13:19] VITALS: BP 113/63; PULSE 74
== END 2016-12-20 13:32 | disposition home or self-care (01) ==
LOC: ORWHC2ENDO 10:51
PROVIDERS: ATTEND Internal Medicine Gastroenterology
DX: K29.50 Unspecified chronic gastritis without bleeding (principal); K21.0 Gastro-esophageal reflux disease with esophagitis; K52.9 Noninfective gastroenteritis and colitis, unspecified; K22.70 Barrett's esophagus without dysplasia; R19.4 Change in bowel habit; Z94.83 Pancreas transplant status; Z94.82 Intestine transplant status; K63.89 Other specified diseases of intestine; I48.91 Unspecified atrial fibrillation; E27.40 Unspecified adrenocortical insufficiency; Z79.899 Other long term (current) drug therapy; Z79.51 Long term (current) use of inhaled steroids; Z79.891 Long term (current) use of opiate analgesic; Z79.02 Long term (current) use of antithrombotics/antiplatelets; Z79.01 Long term (current) use of anticoagulants; Z88.6 Allergy status to analgesic agent; Z88.8 Allergy status to other drugs, medicaments and biological substances
CPT/HCPCS: 88305; 88342; 43239; J2001; J2704

== ENCOUNTER → 2017-01-23 | Outpatient (CLI) | payer MEDICARE, BC, OTHER ==
[2017-01-23 15:23] LABS: INR 1.2 (<1.2); Prothrombin Time 11.5 sec (9.0-12.0)
[2017-01-23 15:31] LABS: Anion Gap 9 mmol/L; Blood Urea Nitrogen 21 mg/dL (9-20); Calcium 8.9 mg/dL (8.4-10.2); Carbon Dioxide 27 mmol/L (22-30); Chloride 102 mmol/L (98-107); Glucose 86 mg/dL (74-99); Non-African American GFR(MDRD) 58 (>60 ml/min/1.73 sqM); Potassium 4.5 mmol/L (3.5-5.1); Sodium 138 mmol/L (137-145)
[2017-01-23 15:54] LABS: Anisocytosis Slight; Basophils % (A) 0 %; CH 24.1; CHCM 27.1; Eosinophils # (A) 0.1 k/uL (0-0.7); Eosinophils % (A) 1 %; HCT 36.6 % (39.0-53.0); HDW 3.03; HGB 10.1 gm/dL (13.0-17.5); Hypochromasia Marked; Large Platelets Flag Marked; Luc # (Auto) 0.43; Luc % (Auto) 4; Lymphocytes # (A) 2.6 k/uL (1.0-4.8); Lymphocytes % (A) 23 %; MCH 24.8 pg (25.0-35.0); MCHC 27.7 g/dL (31.0-37.0); MCV 89.5 fL (80.0-100.0); Mean Platelet Volume 11.8; Monocytes # (A) 0.9 k/uL (0-1.0); Monocytes % (A) 8 %; Neutrophils # (A) 7.2 k/uL (1.3-7.7); Neutrophils % (A) 64 %; RBC 4.09 m/uL (4.30-5.90); RDW 16.1 % (11.5-15.5); WBC 11.3 k/uL (3.8-10.6); WBC (Perox) 11.84
== END | disposition home or self-care (01) ==
LOC: LABWHC1 15:05
PROVIDERS: ATTEND Family Medicine
DX: I48.91 Unspecified atrial fibrillation (principal); Z94.82 Intestine transplant status; Z79.01 Long term (current) use of anticoagulants
CPT/HCPCS: 36415; 80048; 85025; 85610

== ENCOUNTER 2017-04-05 11:06 | Day surgery (SDC) | payer MEDICARE, BC, OTHER ==
[2017-04-05 11:59] VITALS: TEMP 97.3
[2017-04-05] MEDS ORDERED: PHENYLEPHRINE-0.9% NACL SYG 1 MG/10 ML SYRINGE ONE (12:39)
[2017-04-05] MEDS ORDERED: KETAMINE 10 MG/ML 20 ML VIAL ONE (12:39)
[2017-04-05] MEDS ORDERED: PROPOFOL 10 MG/ML 20 ML VIAL IV ONE (12:39)
[2017-04-05] MEDS ORDERED: LIDOCAINE 1% INJ 10MG/ML (20 ML MDV) ONE (12:39)
[2017-04-05] MEDS ORDERED: fentaNYL (PF) 50 MCG/ML 2 ML AMP ONE (12:39)
--- NOTE | 2017-04-05 12:53 | P.PCN ---
Date of Procedure: 04/05/17 Procedure(s) Performed: BRIEF HISTORY: Patient is a 47-year-old, pleasant, white male, scheduled for an EGD for pain. Extent removal that was placed during an ERCP at [facility] 4 weeks ago. Patient is status post multivisceral transplant at [facility] in 2002. He had chronic pancreatitis and hence had an ERCP with pancreatic stent placement in 03/03/2017.. PROCEDURE PERFORMED: Esophagogastroduodenoscopy and antibiotic stent removal. PREOPERATIVE DIAGNOSIS: History of ERCP at [facility] with paregoric stent placement 4 weeks ago. IV sedation per anesthesia. PROCEDURE: After informed consent was obtained, the patient was brought into the endoscopy unit. IV sedation was administered by Anesthesia under continuous monitoring. Initially the Olympus GIF-140 video endoscope was inserted into the mouth. Esophagus intubated without any difficulty. It was gradually advanced into the stomach and duodenum and carefully examined. The bulb and the second part of the duodenum appeared normal. Pigtail pancreatic stent was in place which was removed using a snare without any difficulty with the scope. The scope at this time was withdrawn to the stomach, adequately insufflated with air , and upon careful examination, there was large amount of retained food in the stomach suggestive of gastroparesis but no evidence of gastric outlet obstruction. The scope was then withdrawn into the esophagus. The GE junction was located at 39 cm from the incisors. The esophagus appeared normal. There were no erosions or ulcerations seen and the patient tolerated the procedure well. IMPRESSION: 1. Pancreatic stent removal as described above. 2. Large amount of retained food in the stomach suggestive of gastroparesis. RECOMMENDATIONS: The findings of this examination were discussed with the patient as his family. He is admitted was advised to resume Coumadin today and advance diet as tolerated.
[2017-04-05 13:53] VITALS: BP 95/54; PULSE 72; RESP 18
== END 2017-04-05 14:09 | disposition home or self-care (01) ==
LOC: ORWHC2ENDO 11:06
PROVIDERS: ATTEND Internal Medicine Gastroenterology
DX: Z45.89 Encounter for adjustment and management of other implanted devices (principal); Z79.899 Other long term (current) drug therapy; Z88.6 Allergy status to analgesic agent; Z88.5 Allergy status to narcotic agent; Z88.8 Allergy status to other drugs, medicaments and biological substances; I48.91 Unspecified atrial fibrillation; K21.9 Gastro-esophageal reflux disease without esophagitis; J44.9 Chronic obstructive pulmonary disease, unspecified; Z94.9 Transplanted organ and tissue status, unspecified
CPT/HCPCS: 43235; J2001; J3010; J2370; J2704

== ENCOUNTER → 2017-05-10 | Outpatient (CLI) | payer MEDICARE, BC, OTHER ==
--- NOTE | 2017-05-10 13:27 | CT ---
EXAMINATION TYPE: CT chest wo con DATE OF EXAM: 05/10/2017 COMPARISON: 08/03/2016 HISTORY: 47-year-old male solitary pulmonary nodule; cough, evaluate for pneumonia TECHNIQUE: Contiguous axial scanning of the chest without IV contrast. Coronal and sagittal reconstru ctions performed. CT DLP: 424.5 mGycm Automated exposure control for dose reduction was used. FINDINGS: Heart upper limits of normal in size. Coronary vessel calcifications are marker for coronary artery d isease. Conventional arterial vessel branching anatomy. 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 Large caliber to the main right and left pulmonary arteries are 3.1 and 2.6 cm, respectively, suggest ing underlying pulmonary artery hypertension. Mild bilateral gynecomastia. Prominent subcutaneous varices along the left chest wall. Mild biapical paraseptal emphysema. The previous nodular infiltrates seen on 08/03/2016 have resolved. Some strandy atelectasis at the inferior lingula. Mild diffuse bronchial wall thickening. Visualized upper abdomen shows post surgical changes in the proximal jejunum and anterior right upper quadrant. Bones: Old left-sided rib fracture deformities. No osseous destructive process. IMPRESSION: 1. INTERVAL RESOLUTION OF PREVIOUS NODULAR INFILTRATES SEEN ON 08/03/2016. 2. VERY MILD BRONCHIAL WALL THICKENING ON THE CURRENT EXAM COULD REPRESENT BRONCHITIS OR ASTHMA. THER E IS MILD BIAPICAL PARASEPTAL EMPHYSEMA. 3. FINDINGS SUGGEST UNDERLYING PULMONARY ARTERIAL 4. STABLE ANEURYSM UPPER DESCENDING THORACIC AORTA AT 3.7 CM.
== END | disposition home or self-care (01) ==
LOC: RADCTMAIN 12:42
PROVIDERS: ATTEND Internal Medicine Critical Care Medicine
DX: J43.8 Other emphysema (principal); I71.2 Thoracic aortic aneurysm, without rupture; J98.09 Other diseases of bronchus, not elsewhere classified
CPT/HCPCS: 71250

== ENCOUNTER 2017-05-29 11:23 | Day surgery (SDC) | payer MEDICARE, BC, OTHER ==
[~2017-05-29 11:23] MED LIST changes: +ALBUTEROL NEB (CONC) 2.5 MG/0.5 ML INHALATION ONE; +LACTATED RINGERS 1,000 ML IV ONE; -LACTATED RINGERS 1,000 ML IV SCH; -LIDOCAINE 1% 20 ML VIAL (10MG/ML) FOR IV START INTRADERMA PRN; +LIDOCAINE 2% (PF) 20 MG/ML 2 ML AMP INHALATION ONE
[2017-05-29 12:12] VITALS: TEMP 98.9
[2017-05-29 12:20] LABS: Glucose,Whole Blood 115 mg/dL (75-99)
[2017-05-29] MEDS ORDERED: PROPOFOL 10 MG/ML 20 ML VIAL IV ONE (12:38)
[2017-05-29] MEDS ORDERED: fentaNYL (PF) 50 MCG/ML 2 ML AMP ONE (12:38)
[2017-05-29] MEDS ORDERED: LIDOCAINE 1% INJ 10MG/ML (20 ML MDV) ONE (12:38)
[2017-05-29] MEDS ORDERED: LIDOCAINE 2% INJ 20 MG/ML INTRATRACH ONE (12:52)
--- NOTE | 2017-05-29 13:01 | P.PCN ---
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 The patient is a organ transplant recipient and his been maintained on immunosuppression including Prograf. He is on Bactrim 1 tablet times a week for the city prophylaxis. Based on his failure to respond to conventional antibiotics, the patient had a flexible bronchoscopy and bronchial lavage of the lingular segment This procedure was done under conscious sedation. After adequate sedation flexible bronchoscope was inserted to the right nostril. A complete airway examination was done. Examination of the upper airway included the posterior oropharynx, larynx, epiglottis and vocal cords was done. All of this upper airway structures were within normal limits. The arytenoids ,the vallecula and a true and the false vocal cords were all intact without any significant abnormalities noted. The patient had no vocal cord abnormalities, no lesions, no polyps and he had normal mobility. A total of 2 mL of 1% lidocaine was applied to the vocal cords and following that the bronchoscope was advanced into the upper trachea. Around 1 cm below the cricoid, there was an area of narrowing of the tracheal lumen and this resulted from a fracture of the cartilaginous ring and the breakpoint was anterior at the site of the previous tracheostomy tube insertion. This had caused approximately 50% drop in the lumen caliber. I was able to pass the flexible bronchoscope easily passes area of stenosis of the mid and lower trachea. There is some looseness for secretions were encountered throughout the airways and secretion were occupying the distal trachea, bilateral mainstem bronchi in the lower lobe segments bilaterally. Examination airways including trachea, mainstem bronchi, right upper lobe bronchus, right lower lobe bronchus, right middle lobe bronchus and bronchus intermedius. Examination of the left side included the left mainstem bronchus. At the site of the secondary edgar the left upper lobe and the left lower lobe, there was extensive inflammatory changes mainly specially at the level of the lingula. There were looseness for secretions that were suctioned out. Examination of the left lower lobe segments and subsegments were within normal limits. The bronchoscope was then moved to the severe segment of the lingula and the bronchioloalveolar lavage was done. A total of 120 mL of fluid was infused and 30 mL of bloody aspirate was obtained. Addendum of the procedure the bronchoscope was moved back to the airways and seborrheic it was suctioning was done. The airways were cleared from any residual fluid and secretions and bronchoscope was removed and the patient was transferred to recovery in stable condition. The samples will be sent for microbial analysis and further recommendations are to follow started antibiotic treatments.
[2017-05-29 13:52] VITALS: BP 104/60; PULSE 64; RESP 20
[2017-05-29 16:10] LABS: Color,BF Red
[2017-05-29 16:11] LABS: Appearance,BF Bloody
[2017-05-29 16:13] LABS: Nucleated Cells, Body Fluid 800 /uL; RBC, Body Fluid 50400 /uL
[2017-05-29 16:16] LABS: Mononuclear WBC,Body Fluid 34 %; Polynuclear WBC,Body Fluid 66 %; Total Cells Counted,Body Fluid 100
== END 2017-05-29 13:53 | disposition home or self-care (01) ==
LOC: ORWHC2ENDO 11:23
PROVIDERS: ATTEND Internal Medicine Critical Care Medicine
DX: J20.9 Acute bronchitis, unspecified (principal); J44.0 Chronic obstructive pulmonary disease with (acute) lower respiratory infection; J39.8 Other specified diseases of upper respiratory tract; A49.02 Methicillin resistant Staphylococcus aureus infection, unspecified site; I48.2 Chronic atrial fibrillation; G47.33 Obstructive sleep apnea (adult) (pediatric); N18.9 Chronic kidney disease, unspecified; F41.9 Anxiety disorder, unspecified; E27.40 Unspecified adrenocortical insufficiency; Z86.718 Personal history of other venous thrombosis and embolism; D64.9 Anemia, unspecified; F32.9 Major depressive disorder, single episode, unspecified; K21.9 Gastro-esophageal reflux disease without esophagitis; E66.9 Obesity, unspecified; Z68.28 Body mass index [BMI] 28.0-28.9, adult; Z94.82 Intestine transplant status; Z94.83 Pancreas transplant status; Z94.89 Other transplanted organ and tissue status; Q43.9 Congenital malformation of intestine, unspecified; Z87.19 Personal history of other diseases of the digestive system; F17.210 Nicotine dependence, cigarettes, uncomplicated; Z79.2 Long term (current) use of antibiotics; Z79.899 Other long term (current) drug therapy; Z79.51 Long term (current) use of inhaled steroids; Z79.891 Long term (current) use of opiate analgesic; Z79.52 Long term (current) use of systemic steroids; Z79.01 Long term (current) use of anticoagulants; F11.99 Opioid use, unspecified with unspecified opioid-induced disorder; Z88.5 Allergy status to narcotic agent; Z88.6 Allergy status to analgesic agent; Z88.8 Allergy status to other drugs, medicaments and biological substances
CPT/HCPCS: 94640; 87798 ×3; 87496; 87498; 87529; 88108; 88305; 89050; 87252; 87502; 87634; 87070; 87205; 87116; 87102; 87077; 87186; 87206; 31645; 31624; J2001 ×3; J3010; J2704

== ENCOUNTER 2017-06-04 13:36 | Day surgery (SDC) | payer MEDICARE, BC, OTHER ==
[2017-06-04 08:51] VITALS: BMI 29.0
[~2017-06-04 13:36] MED LIST changes: -ALBUTEROL NEB (CONC) 2.5 MG/0.5 ML INHALATION ONE; -LACTATED RINGERS 1,000 ML IV ONE; -LIDOCAINE 2% (PF) 20 MG/ML 2 ML AMP INHALATION ONE; +VANCOMYCIN 1,250 MG in SODIUM CHLORIDE 0.9% 250 ML IVPB ONE
[2017-06-04 14:03] VITALS: BP 127/63; PULSE 84; RESP 20
[2017-06-04 14:22] LABS: INR 4.7 (<1.2); Prothrombin Time 42.4 sec (9.0-12.0)
== END 2017-06-04 14:45 | disposition home or self-care (01) ==
LOC: CATHCVL 13:36
PROVIDERS: ATTEND Radiology Diagnostic Radiology
DX: A49.02 Methicillin resistant Staphylococcus aureus infection, unspecified site (principal); Z53.8 Procedure and treatment not carried out for other reasons
CPT/HCPCS: 85610

== ENCOUNTER → 2017-06-12 | Outpatient (CLI) | payer MEDICARE, BC, OTHER ==
[2017-06-03 12:49] VITALS: BMI 28.8
--- NOTE | 2017-06-12 20:18 | MR ---
EXAMINATION TYPE: MR brain wo con DATE OF EXAM: 06/12/2017 4:49 PM COMPARISON: NONE HISTORY: Headaches Multiplanar and multispin-echo imaging of the brain was performed . The ventricles, basal cisterns and sulci overlying the cerebral convexities are within normal limits. There is no evidence for midline shift or mass effect. Acute intracranial hemorrhage or extra-axial collection is not evident. Nonspecific white matter changes with periventricular and subcortical foci of increased signal may re flect demyelinating disease, vasculopathy, sequela of chronic migraine headaches or Lyme's disease. No acute edema is identified. The paranasal sinuses and mastoid air cells are well-aerated. IMPRESSION: Specific white matter changes. See above.
== END | disposition home or self-care (01) ==
LOC: RADUSWWP 16:16
PROVIDERS: ATTEND Podiatrist Foot & Ankle Surgery
DX: R90.82 White matter disease, unspecified (principal)
CPT/HCPCS: 70551

== ENCOUNTER → 2017-06-13 | Outpatient (CLI) | payer MEDICARE, BC, OTHER ==
--- NOTE | 2017-06-19 10:35 | P.ARTDOP ---
Arterial Doppler LOWER EXTREMITY ARTERIAL DOPPLER: DATE OF SERVICE: 06/13/2017 Reason for study: Bilateral foot numbness. Doppler waveforms: Multiphasic at both femorals, popliteals and posterior tibials. Atypical of the dorsalis pedis.. Pulse volume recording: Minimal distal blunting. Pressure gradients: Mild gradient distally. Ankle-brachial indices: 0.96 on the right and greater than 1 on the left.. Toe pressures: 71 on the right, 64 on the left Impression: Suggests mild distal disease. Possible vasospastic phenomenon.
== END | disposition home or self-care (01) ==
LOC: RADUSWWP 12:22
PROVIDERS: ATTEND Podiatrist Foot & Ankle Surgery
DX: I73.9 Peripheral vascular disease, unspecified (principal)
CPT/HCPCS: 93923

== ENCOUNTER 2017-07-22 12:07 | Inpatient (IN) | payer MEDICARE, BC, OTHER ==
[2017-07-22] MEDS ORDERED: diphenhydrAMINE 50 MG/ML 1 ML VIAL IVP STA (12:56)
[2017-07-22] MEDS ORDERED: MORPHINE SULF 5MG/10ML VL IV STA (12:56)
[2017-07-22] MEDS ORDERED: SODIUM CHLORIDE 0.9% 1,000 ML IV STA (12:56)
[2017-07-22 13:33] LABS: Anisocytosis Slight; Basophils % (A) 0 %; Eosinophils # (A) 0.5 k/uL (0-0.7); Eosinophils % (A) 3 %; HCT 29.6 % (39.0-53.0); HGB 8.3 gm/dL (13.0-17.5); Hypochromasia Marked; Lymphocytes # (A) 2.1 k/uL (1.0-4.8); Lymphocytes % (A) 12 %; MCH 23.4 pg (25.0-35.0); MCHC 28.1 g/dL (31.0-37.0); MCV 83.4 fL (80.0-100.0); Mean Platelet Volume 7.4; Monocytes # (A) 1.2 k/uL (0-1.0); Monocytes % (A) 7 %; Neutrophils # (A) 13.2 k/uL (1.3-7.7); Neutrophils % (A) 75 %; Platelet Count 180 k/uL (150-450); Poikilocytosis Slight; RBC 3.55 m/uL (4.30-5.90); RDW 17.9 % (11.5-15.5); WBC 17.5 k/uL (3.8-10.6)
--- NOTE | 2017-07-22 13:33 | XR ---
EXAMINATION TYPE: XR chest 2V DATE OF EXAM: 07/22/2017 COMPARISON: 05/20/2017 TECHNIQUE: PA and lateral views submitted. HISTORY: Chest pain and pleurisy FINDINGS: Bilateral pleural thickening seen with cardiomegaly and hyperinflation. Areas of subsegmental consoli dation left lung noted. No pleural effusion or pneumothorax. IMPRESSION: 1. Patchy left-sided infiltrate with subsegmental consolidation and pleural thickening. Underlying ca rdiomegaly is stable. 2. More nodular appearing density along the lateral margin of the left heart border may be representa tive new area of consolidation rather than pulmonary nodule. Correlate clinically.
[2017-07-22 13:35] LABS: INR 1.7 (<1.2); Partial Thromboplastin Time 30.5 sec (22.0-30.0); Prothrombin Time 15.9 sec (9.0-12.0)
[2017-07-22 13:36] LABS: Albumin 3.4 g/dL (3.5-5.0); Calcium 9.2 mg/dL (8.4-10.2); Potassium 4.4 mmol/L (3.5-5.1); Total Bilirubin 0.1 mg/dL (0.2-1.3)
--- NOTE | 2017-07-22 13:36 | XR ---
EXAMINATION TYPE: XR KUB DATE OF EXAM: 07/22/2017 CLINICAL DATA: 47 year-old male abdominal bloating and pain, PH[facility] COMPARISON: 03/23/[address] 09/03/2016 FINDINGS: No evidence for free intraperitoneal air. Bowel loops in the right mid abdomen and right lower quadrant are dilated up to 6.5 cm with air-fluid levels. Paucity of bowel gas elsewhere in the abdomen. IMPRESSION: Dilated bowel loops right mid abdomen and right lower quadrant with air-fluid levels. There is a pauc ity of bowel gas elsewhere in the abdomen. Correlating with CT of 09/03/2016, there appears to be a ne ar total colectomy with small bowel sigmoid anastomosis. Bowel obstruction difficult to exclude on th e basis of this exam.
--- NOTE | 2017-07-22 13:42 | ED ---
General Adult HPI - General Chief complaint: Abdominal Pain Stated complaint: Bloating,SOB Time Seen by Provider: 07/22/17 12:44 Source: patient, RN notes reviewed, old records reviewed Mode of arrival: ambulatory Limitations: no limitations - History of Present Illness Initial comments: Patient's 47-year-old male presenting to the emergency room today with multiple complaints. He does admit to abdominal pain located in the upper abdomen over the last 3 days. Patient states that it is a cramping and fullness to sensation. Patient states that the symptoms are consistent with abdominal pain that is had in the past. Patient does admit to multiple surgeries in the past with a organ transplant of the stomach and intestines. Patient also admits to having some chest pain over the last 2 days. He states currently, for this time but is noticeably is up moving around. He was somewhat short of breath and feels some pain anterior chest wall. He states he was recently diagnosed with pleurisy and is currently on antibiotics over the last 6 days. He states the pain has been improving. Patient denies any other complaints or symptoms currently. Patient denies any recent fever, chills, back pain, nausea or vomiting, numbness or tingling, dysuria or hematuria, constipation or diarrhea, headaches or visual changes, or any other complaints. - Related Data Home Medications Medication Instructions Recorded Confirmed Calcium Citrate/Vitamin D3 1 tab PO BID 09/02/13 07/22/17 [Calcium Citrate - Vit D3 Tab] Ferrous Gluconate 325 mg PO BID 09/02/13 07/22/17 Magnesium Gluconate [Magonate] 500 mg PO BID 09/02/13 07/22/17 Multivitamin [Men's Multi-Vitamin] 1 tab PO QAM 09/02/13 07/22/17 Sertraline [Zoloft] 150 mg PO QAM 09/02/13 07/22/17 Tacrolimus [Prograf] 1 mg PO 09/02/13 07/22/17 Tacrolimus [Prograf] 2 mg PO QAM 09/02/13 07/22/17 Cholecalciferol (Vitamin D3) 10,000 unit PO QAM 09/22/15 07/22/17 [Vitamin D3] Hydrocortisone 10 mg PO 09/22/15 07/22/17 Lhvfzy-Tdwtbyiz-Gzfdyiq [Zenpep 10] 1 cap PO BID 09/22/15 07/22/17 Sulfamethoxazole/Trimethoprim 0.5 tab PO MOWEFR 08/02/16 07/22/17 [Bactrim DS 800-160 mg] Ipratropium [place] [Atrovent Hfa] 2 puff INHALATION RT-BID 09/03/16 07/22/17 Albuterol Sulfate [Proair Hfa] 1 - 2 puff INHALATION RT-Q6H PRN 12/19/16 Fludrocortisone [Florinef] 0.1 mg PO DAILY 12/19/16 07/22/17 traZODone HCL 100 mg PO HS 12/19/16 07/22/17 Gabapentin [Neurontin] 300 mg PO TID 03/23/17 07/22/17 HYDROcodone/APAP 10-325MG [[place] 1 tab PO Q4HR PRN 03/23/17 07/22/17 10-325] Hydrocortisone [Cortef] 20 mg PO QAM 03/23/17 07/22/17 Methadone HCl [Dolophine HCl] 5 mg PO HS 03/23/17 07/22/17 Sucralfate [Carafate] 1 gm PO BID 03/23/17 07/22/17 Budesonide/Formoterol Fumarate 2 puff INHALATION RT-BID 05/17/17 07/22/17 [Symbicort 160-4.5 Mcg Inhaler] Methadone [Dolophine] 10 mg PO QAM 05/17/17 07/22/17 Metoprolol Succinate [Toprol XL] 25 mg PO DAILY 05/17/17 07/22/17 Omeprazole 40 mg PO BID 05/17/17 07/22/17 Pyridoxine [Vitamin B-6] 50 mg PO DAILY 05/17/17 07/22/17 Cefdinir [Omnicef] 300 mg PO BID 07/22/17 07/22/17 Fluticasone Nasal [place] [Flonase 2 spr EA NOSTRIL DAILY PRN 07/22/17 07/22/17 Nasal Gaastra] Warfarin [Coumadin] 5 mg PO HS 07/22/17 07/22/17 Allergies Allergy/AdvReac Type Severity Reaction Status Date / Time aspirin Allergy GI Verified 07/22/17 13:56 BLEEDING , ABDOMINAL PAIN heparin AdvReac abdominal Verified 07/22/17 13:56 pain , GI bleeding ketorolac tromethamine AdvReac migraines Verified 07/22/17 13:56 [From Toradol] morphine AdvReac Itching Verified 07/22/17 13:56 Review of Systems ROS Statement: Those systems with pertinent positive or pertinent negative responses have been documented in the HPI. ROS Other: All systems not noted in ROS Statement are negative. 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, small bowel and pancreas, history of adrenal insufficiency maintained on Cortef on outpatient basis, chronic anemia, chronic back pain, paroxysmal atrial fibrillation, acid reflux, obstructive sleep apnea, COPD, previous exposure to MRSA, previous hospitalization for GI bleeding, chronic renal failure, gastroparesis suspected based on the previous EGD that showed large amount of retained food in the stomach, History of Any Multi-Drug Resistant Organisms: MRSA Date of last positivie culture/infection: 05/29/17 MDRO Source:: BRONCH WASH Additional Past Surgical History / Comment(s): Multivisceral organ transplant including bowel, pancreas, and stomach at [facility], left knee arthrotomy, EGD, colonoscopy, ERCP with insertion of a pancreatic duct stent Past Anesthesia/Blood Transfusion Reactions: No Reported Reaction Additional Past Anesthesia/Blood Transfusion Reaction / Comment(s): STATES R/T TO MULTIPLE SX HE REQUIRES A LOT OF MEDICATION for anesthesia. He has had multiple blood transfusions without reaction. Past Psychological History: Anxiety, Depression Smoking Status: Current some day smoker Past Alcohol Use History: Rare Past Drug Use History: None Reported - Past Family History Mother History Unknown: Yes Additional Family Medical History / Comment(s): pt is adopted, does not know any hx Father History Unknown: Yes Additional Family Medical History / Comment(s): pt is adopted, does not know any hx General Exam - General Exam Comments Initial Comments: General: The patient is awake and alert, in no distress, and does not appear acutely ill. Eye: Pupils are equal, round and reactive to light, extra-ocular movements are intact. No nystagmus. There is normal conjunctiva bilaterally. No signs of icterus. Ears, nose, mouth and throat: There are moist mucous membranes and no oral lesions. Neck: The neck is supple, there is no tenderness or JVD. Cardiovascular: There is a regular rate and rhythm. No murmur, rub or gallop is appreciated. Respiratory: Lungs are clear to auscultation, respirations are non-labored, breath sounds are equal. No wheezes, stridor, rales, or rhonchi. Gastrointestinal: Abdomen soft on the patient. Mild discomfort in the upper abdomen both left and right sides. No rebound tenderness. No guarding. No CVA tenderness. Musculoskeletal: Normal ROM, no tenderness. Strength 5/5. Sensation intact. Pulses equal bilaterally 2+. Neurological: A&O x 3. CN II-XII intact, There are no obvious motor or sensory deficits. Coordination appears grossly intact. Speech is normal. Skin: Skin is warm and dry and no rashes or lesions are noted. Psychiatric: Cooperative, appropriate mood & affect, normal judgment. Limitations: no limitations Course Vital Signs 07/22/17 07/22/17 12:11 13:40 Temperature 97.7 F Pulse Rate 85 79 Respiratory 24 18 Rate Blood Pressure 100/43 145/82 O2 Sat by Pulse 98 95 Oximetry EKG Findings - EKG Comments: EKG Findings:: EKG performed at 1305: Shows a normal sinus rhythm at 73 bpm. ID interval is 200. QRS 84. QT/QTC 358/394. No acute ST changes. Medical Decision Making - Medical Decision Making 1602: Patient updated at this time shows no signs of distress. Patient's CT of the abdomen shows 1. Status post some total colectomy. Suspect a small fall sigmoid anastomosis. No evidence of bowel instruction. 2. The proximal sigmoid, more dilated than prior 8.2 cm compared to 6.1 cm. There is mild circumferential wall thickening extending throughout the remainder of the sigmoid. Questionable findings of either trap dependent along the posterior sigmoid or mild colonic pneumatosis. Patient's lactic acid 1.3 here in emergency room. Abdomen is soft on palpation. 3. There is redemonstration of chronic dyspnea occlusion with surgical bypass. Portal vein is dilated suggesting underlying portal venous hypertension. 5. New wall thickening along the posterior gastric fundus could represent a focal gastritis. 6. Soft tissue density material along the posterior half of the bladder could represent a diluted dependent contrast material. Patient's CT of the chest show 1. New multifocal nodular patient is most likely reflecting multifocal pneumonia. 2. Left axillary patch stranding of opacification of the axillary and subclavian vasculature concerning for thrombosed. 3. Mild paraseptal emphysema. 4. Findings suggestive of underlying pulmonary arterial hypertension and stable ascending thoracic aorta aneurysm patient's vitals are stable at this time. Ultrasound of the left upper extremity has been ordered. Currently pending at this time. Patient started on antibiotics of Zosyn and Levaquin cover for pneumonia. - Lab Data Result diagrams: 07/22/17 13:13 07/22/17 13:13 Lab Results 07/22/17 07/22/17 07/22/17 Range/Units 13:13 13:13 13:13 WBC 17.5 H (3.8-10.6) k/uL RBC 3.55 L (4.30-5.90) m/uL Hgb 8.3 L (13.0-17.5) gm/dL Hct 29.6 L (39.0-53.0) % MCV 83.4 (80.0-100.0) fL MCH 23.4 L (25.0-35.0) pg MCHC 28.1 L (31.0-37.0) g/dL RDW 17.9 H (11.5-15.5) % Plt Count 180 (150-450) k/uL Neutrophils % 75 % Lymphocytes % 12 % Monocytes % 7 % Eosinophils % 3 % Basophils % 0 % Neutrophils # 13.2 H (1.3-7.7) k/uL Lymphocytes # 2.1 (1.0-4.8) k/uL Monocytes # 1.2 H (0-1.0) k/uL Eosinophils # 0.5 (0-0.7) k/uL Basophils # 0.0 (0-0.2) k/uL Hypochromasia Marked Poikilocytosis Slight Anisocytosis Slight PT (9.0-12.0) sec INR (<1.2) APTT (22.0-30.0) sec Sodium 139 (137-145) mmol/L Potassium 4.4 (3.5-5.1) mmol/L Chloride 103 (98-107) mmol/L Carbon Dioxide 28 (22-30) mmol/L Anion Gap 8 mmol/L BUN 20 (9-20) mg/dL Creatinine 1.40 H (0.66-1.25) mg/dL Est GFR (CKD-EPI)AfAm 68 (>60 ml/min/1.73 sqM) Est GFR (CKD-EPI)NonAf 59 (>60 ml/min/1.73 sqM) Glucose 95 (74-99) mg/dL Plasma Lactic Acid Barrie (0.7-2.0) mmol/L Calcium 9.2 (8.4-10.2) mg/dL Total Bilirubin 0.1 L (0.2-1.3) mg/dL AST 18 (17-59) U/L ALT 23 (21-72) U/L Alkaline Phosphatase 69 (38-126) U/L Total Creatine Kinase 36 L (55-170) U/L CK-MB (CK-2) 0.4 (0.0-2.4) ng/mL CK-MB (CK-2) Rel Index 1.1 Troponin I <0.012 (0.000-0.034) ng/mL Total Protein 6.0 L (6.3-8.2) g/dL Albumin 3.4 L (3.5-5.0) g/dL Amylase 79 (30-110) U/L Lipase 75 (23-300) U/L Urine Color Urine Appearance (Clear) Urine pH (5.0-8.0) Ur Specific [place] (1.001-1.035) Urine Protein (Negative) Urine Glucose (UA) (Negative) Urine Ketones (Negative) Urine Blood (Negative) Urine Nitrite (Negative) Urine Bilirubin (Negative) Urine Urobilinogen (<2.0) mg/dL Ur Leukocyte Esterase (Negative) 07/22/17 07/22/17 07/22/17 Range/Units 13:13 13:13 14:02 WBC (3.8-10.6) k/uL RBC (4.30-5.90) m/uL Hgb (13.0-17.5) gm/dL Hct (39.0-53.0) % MCV (80.0-100.0) fL MCH (25.0-35.0) pg MCHC (31.0-37.0) g/dL RDW (11.5-15.5) % Plt Count (150-450) k/uL Neutrophils % % Lymphocytes % % Monocytes % % Eosinophils % % Basophils % % Neutrophils # (1.3-7.7) k/uL Lymphocytes # (1.0-4.8) k/uL Monocytes # (0-1.0) k/uL Eosinophils # (0-0.7) k/uL Basophils # (0-0.2) k/uL Hypochromasia Poikilocytosis Anisocytosis PT 15.9 H (9.0-12.0) sec INR 1.7 H (<1.2) APTT 30.5 H (22.0-30.0) sec Sodium (137-145) mmol/L Potassium (3.5-5.1) mmol/L Chloride (98-107) mmol/L Carbon Dioxide (22-30) mmol/L Anion Gap mmol/L BUN (9-20) mg/dL Creatinine (0.66-1.25) mg/dL Est GFR (CKD-EPI)AfAm (>60 ml/min/1.73 sqM) Est GFR (CKD-EPI)NonAf (>60 ml/min/1.73 sqM) Glucose (74-99) mg/dL Plasma Lactic Acid Barrie 1.3 (0.7-2.0) mmol/L Calcium (8.4-10.2) mg/dL Total Bilirubin (0.2-1.3) mg/dL AST (17-59) U/L ALT (21-72) U/L Alkaline Phosphatase (38-126) U/L Total Creatine Kinase (55-170) U/L CK-MB (CK-2) (0.0-2.4) ng/mL CK-MB (CK-2) Rel Index Troponin I (0.000-0.034) ng/mL Total Protein (6.3-8.2) g/dL Albumin (3.5-5.0) g/dL Amylase (30-110) U/L Lipase (23-300) U/L Urine Color Yellow Urine Appearance Clear (Clear) Urine pH 5.5 (5.0-8.0) Ur Specific [place] 1.016 (1.001-1.035) Urine Protein Trace H (Negative) Urine Glucose (UA) Negative (Negative) Urine Ketones Negative (Negative) Urine Blood Negative (Negative) Urine Nitrite Negative (Negative) Urine Bilirubin Negative (Negative) Urine Urobilinogen <2.0 (<2.0) mg/dL Ur Leukocyte Esterase Negative (Negative) Disposition Clinical Impression: CAP (community acquired pneumonia), Abdominal pain Disposition: ADMITTED IP TO THIS HOSP Condition: Stable Referrals: Ras Zhao MD [Primary Care Provider] - 1-2 days Time of Disposition: 16:24
[2017-07-22 13:48] LABS: Creatine Kinase 36 U/L (55-170)
[2017-07-22] MEDS ORDERED: RX INFO: IV CONTRAST WAS GIVEN 1 EACH MISC MISCELLANE PRN (13:54)
[2017-07-22 14:02] LABS: Creatine Kinase MB 0.4 ng/mL (0.0-2.4); Troponin I <0.012 ng/mL (0.000-0.034)
[2017-07-22 14:18] LABS: Appearance,Urine Clear (Clear); Bilirubin,Urine Negative (Negative); Blood,Urine Negative (Negative); Color,Urine Yellow; Glucose,Urine (UA) Negative (Negative); Ketones,Urine Negative (Negative); Leukocyte Esterase,Urine Negative (Negative); Nitrite,Urine Negative (Negative); PH, Urine 5.5 (5.0-8.0); Protein,Urine Trace (Negative); Specific Gravity,Urine 1.016 (1.001-1.035); Urobilinogen,Urine <2.0 mg/dL (<2.0)
--- NOTE | 2017-07-22 15:22 | CT ---
EXAMINATION TYPE: CT angio chest DATE OF EXAM: 07/22/2017 COMPARISON: 05/10/2017 HISTORY: Abdominal distention with SOB x3 days CT DLP: 1644.8 mGycm. Automated Exposure Control for Dose Reduction was Utilized. CONTRAST: CTA scan of the thorax is performed with IV Contrast, patient injected with 80 mL of Isovue 370, pulm onary embolism protocol. MIP Images are created on CT scanner and reviewed. FINDINGS: LUNGS: Mild paraseptal emphysematous changes are most pronounced at the lung apices. New reticulonodu lar opacity is seen within the left upper lobe and to a lesser degree within the right and left lower lobes, not present on the recent exam of 05/10/2017. There is no pleural effusion or pneumothorax see n. The tracheobronchial tree is patent. MEDIASTINUM: Ascending thoracic aortic aneurysm measuring 3.7 cm is unchanged. Enlargement of the kevin n pulmonary arteries are similar to the prior measuring 3.0 and 2.5 cm respectively. Again this sugge sts underlying pulmonary arterial hypertension. There is satisfactory enhancement of the pulmonary ar nilsa and its branches, there is no CT evidence for pulmonary embolism. There are no greater than 1 c m hilar or mediastinal lymph nodes. No cardiomegaly or pericardial effusion is seen. Moderate coron leobardo artery calcifications are seen of the left main and left anterior descending coronary arteries. OTHER: Chest wall varicosities are again redemonstrated, greatest on the left with bilateral gynecoma stia again noted in the retroareolar location. There are again postsurgical changes of the upper abdo men. Fatty replacement of the pancreatic head is incidentally noted. There is some fat stranding in t he left axilla no contrast is seen within the axillary arteries concerning for thrombosis. Ultrasound of the left upper extremity is recommended. IMPRESSION: 1. New multifocal reticular nodular opacity that given this was not present on the most recent exam o f 05/10/2017 likely reflects multifocal pneumonia. 2. Left axillary fat stranding and nonopacification of the axillary and subclavian vasculature concer adams for thrombus. Vascular ultrasound of the left upper extremity is recommended. 3. Mild paraseptal emphysema. 4. Again findings suggesting underlying pulmonary arterial hypertension and stable descending thoraci c aortic aneurysm.
[2017-07-22] MEDS ORDERED: MORPHINE SULF 5MG/10ML VL IVP STA (15:35)
--- NOTE | 2017-07-22 15:49 | CT ---
EXAMINATION TYPE: CT abdomen pelvis w con DATE OF EXAM: 07/22/2017 COMPARISON: 09/03/2016 HISTORY: 47-year-old male with abdominal distention with SOB x3 days TECHNIQUE: Contiguous axial scanning of the abdomen and pelvis following administration of 100 ml Omn ipaque 300 IV contrast. Delayed images through the kidneys and coronal/sagittal reconstructions perf ormed. CT DLP: 414.4 mGycm Automated exposure control for dose reduction was used. FINDINGS: Heart is normal size without pericardial effusion. There is patchy infiltrate at the inferior lingula and basilar lateral left lower lobe. Nodule measures 1 cm, axial image 15. No pleural effusion. Postsurgical changes along the anterior midline of the abdomen. No focal liver lesion. Stable prominence to the biliary system. Status post cholecystectomy. Adrenal glands and atrophic pancreas show no gross abnormality. A couple subcentimeter hypodensities, one in each kidney too small for accurate CT characterization, unchanged from 09/03/2016 just above cysts. Co ntrast is seen being excreted from the renal collecting systems. The proximal third right ureter is m ildly patulous without a suspicious filling defects seen. There is suggestion of some eccentric wall thickening along the posterior gastric fundus and proximal body, axial image 23. Redemonstrated findings of chronic SMA occlusion. There appears to be surgical collateralization with a large vessel anastomosed to the infrarenal aorta in feeding the mid SMA large caliber to the main portal vein at 2.1 cm similar prior reflect underlying pulmonary artery hypertension. There is focal tortuosity of the superior mesenteric vein also similar prior. There is mild diffuse wall thickening of the residual sigmoid colon with findings suggesting small linda wel sigmoid anastomosis. The proximal sigmoid as before the anastomosis is very patulous measuring up to 8.2 cm in caliber versus 6.1 cm, previously. Right questionable subtle findings possible mural ba sed linear tear along the dependent portion, for example, axial image 63. Scattered mesenteric lymphadenopathy or possibly splenules given absence of the spleen relatively sim ilar to prior exam. Example, right mid abdominal mesenteric lymph node axial image 51 measures 1.2 cm versus 1.1 cm, previously. Small bowel loops show no abnormal dilatation. There is dependent relatively hyperdense material seen within the bladder suspected to represent mark ecting contrast material. This should be correlated with urinalysis and urine cytology to exclude hem orrhage within the bladder, infected debris, or less likely neoplasm, reference axial image 82. No ab normal fluid collection in the pelvis or pelvic lymphadenopathy. Bones: Degenerative changes lower lumbar spine. No osseous destructive process. Old healed left-sided rib fracture deformities. IMPRESSION: 1. Status post subtotal colectomy. Suspect small bowel sigmoid anastomosis. No evidence for bowel obs truction. 2. The proximal sigmoid has become even more dilated than prior exam (8.2 cm in diameter now versus 6 .1 cm, previously) with mild circumferential wall thickening extending throughout the remainder of th e sigmoid. There are questionable findings of either trapped dependent air along the posterior sigmoi d or mild colonic pneumatosis. CLINICAL CORRELATION FOR SIGNS OF ACUTE ABDOMEN AND WITH LACTIC ACID L EVELS IS RECOMMENDED TO EXCLUDE COLONIC ISCHEMIA. 3. Redemonstrated chronic SMA occlusion with a surgical bypass from the aorta supplying SMA branches. Of note, the portal vein is dilated suggesting underlying portal venous hypertension. The upper SMV is markedly tortuous and an aberrant arterial portal communication is difficult to exclude in the lef t upper quadrant. Consider measurement of portal venous pressures when patient is able. 4. 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 There is either stable mesenteric lymphadenop athy measuring up to 1.2 cm or multiple intra-abdominal splenules. Correlate for trauma history. 5. New wall thickening along the posterior gastric fundus could represent focal gastritis. Direct vis ualization as indicated to exclude neoplasm. 6. Soft tissue density material along the posterior half of the bladder could represent dilute depend ent contrast material, hemorrhagic/infective debris, or less likely mass. Correlate with urinalysis a nd urine cytology. 7. New nodular infiltrate at the left base. CT chest reported separately.
[2017-07-22] MEDS ORDERED: VANCOMYCIN 1,000 MG in SODIUM CHLORIDE 0.9% 250 ML IVPB STA (16:02)
[2017-07-22] MEDS ORDERED: PIPERACILLIN-TAZOBACTAM 3.375 GM in DEXTROSE/WATER 1 50ML.BAG IVPB STA (16:02)
[2017-07-22] MEDS ORDERED: VANCOMYCIN IV PER PHARMACY 1 EACH MISC MISCELLANE PRN (16:02)
[2017-07-22] MEDS ORDERED: VANCOMYCIN 1,750 MG in SODIUM CHLORIDE 0.9% 250 ML IVPB STA (16:08)
[2017-07-22] MEDS ORDERED: ACETAMINOPHEN TAB 325 MG TAB PO PRN (17:11)
[2017-07-22] MEDS ORDERED: ONDANSETRON 4 MG/2 ML VIAL IVP PRN (17:11)
[2017-07-22] MEDS ORDERED: NALOXONE 0.4 MG/ML 1 ML VIAL IV PRN (17:11)
[2017-07-22] MEDS ORDERED: SODIUM CHLORIDE 0.9% 1,000 ML IV ONE (17:11)
--- NOTE | 2017-07-22 17:27 | US ---
EXAMINATION TYPE: US venous doppler duplex UE LT DATE OF EXAM: 07/22/2017 COMPARISON: NONE CLINICAL HISTORY: Pain. abnormal CT 07/22/2017 SIDE PERFORMED: left Left Arm: Positive for DVT no flow Left IJV, left proximal Subclavian shows minimal flow with mid and distal showing no flow, n o flow seen in left Brachials Patient has extensive varicosities in arm complicating imaging IMPRESSION: The exam shows venous thrombosis involving the subclavian vein extending into the axillary and brachi ocephalic vein. Internal jugular vein also appears to be thrombosed.
[2017-07-22] MEDS ORDERED: HEPARIN SODIUM,PORCINE 5,000 UNIT/ML 1 ML VIAL IV PRN (17:32)
[2017-07-22] MEDS ORDERED: HEPARIN SODIUM,PORCINE 5,000 UNIT/ML 1 ML VIAL IV ONE (17:32)
[2017-07-22] MEDS: HEPARIN SOD,PORK IN 0.45% NACL 25,000 UNIT in 0.45% NACL 1 500ML.BAG IV SCH (18:08)
[2017-07-22] MEDS ORDERED: HYDROcodone/APAP 10-325MG 1 EACH TAB PO PRN (18:29)
[2017-07-22] MEDS: MAGNESIUM OXIDE 400 MG TAB PO SCH (20:03)
[2017-07-22] MEDS: CALCIUM CARB-VIT D 250MG-125UN 1 EACH TAB PO SCH (20:03)
[2017-07-22] MEDS: SULFAMETHOX-TMP 800-160MG 1 EACH TAB PO SCH (20:04)
[2017-07-22] MEDS: FERROUS SULFATE 325 MG TAB PO SCH (20:04)
[2017-07-22] MEDS: traZODone HCL 100 MG TAB PO SCH (20:04)
[2017-07-22] MEDS: SUCRALFATE 1 GM TAB PO SCH (20:04)
[2017-07-22] MEDS: GABAPENTIN 300 MG CAP PO SCH (20:04)
[2017-07-22] MEDS: TACROLIMUS 1 MG CAP PO SCH (20:04)
[2017-07-22] MEDS: MORPHINE SULF 5MG/10ML VL IV PRN (20:05)
[2017-07-22] MEDS: SYMBICORT 160-4.5 MCG INHALER INHALATION SCH (20:11)
[2017-07-22] MEDS: METHADONE 5 MG TAB PO SCH (20:15)
[2017-07-22] MEDS ORDERED: WARFARIN 1 MG TAB PO SCH (21:00)
[2017-07-22] MEDS: diphenhydrAMINE 50 MG/ML 1 ML VIAL IVP PRN (21:02)
[2017-07-22] MEDS: HYDROCORTISONE 10 MG TAB PO SCH (21:08)
[2017-07-23] MEDS: MORPHINE SULF 5MG/10ML VL IV PRN ×5 (00:16→20:49)
[2017-07-23] MEDS: PIPERACILLIN-TAZOBACTAM 3.375 GM in DEXTROSE/WATER 1 50ML.BAG IVPB SCH ×3 (00:28→16:31)
[2017-07-23] MEDS ORDERED: VANCOMYCIN 1,750 MG in SODIUM CHLORIDE 0.9% 250 ML IVPB SCH (06:00)
[2017-07-23] MEDS: HEPARIN SOD,PORK IN 0.45% NACL 25,000 UNIT in 0.45% NACL 1 500ML.BAG IV SCH (06:10)
[2017-07-23] MEDS: PANTOPRAZOLE 40 MG TABLET PO SCH ×2 (06:13→16:32)
[2017-07-23] MEDS: LIPASE 5,000/PROTEASE 17,000/AMYLASE 27,0000 PO SCH ×2 (06:13→16:12)
[2017-07-23] MEDS: SERTRALINE 50 MG TAB PO SCH (08:11)
[2017-07-23] MEDS: METOPROLOL SUCCINATE (ER) 25 MG TAB.ER.24H PO SCH (08:11)
[2017-07-23] MEDS: FLUDROCORTISONE 0.1 MG TAB PO SCH (08:11)
[2017-07-23] MEDS: HYDROCORTISONE 20 MG TAB PO SCH (08:11)
[2017-07-23] MEDS: TACROLIMUS 1 MG CAP PO SCH ×2 (08:11→21:05)
[2017-07-23] MEDS: GABAPENTIN 300 MG CAP PO SCH ×3 (08:11→23:12)
[2017-07-23] MEDS: METHADONE 10 MG TAB PO SCH (08:12)
[2017-07-23 08:18] LABS: Anisocytosis Slight; Basophils % (A) 0 %; Eosinophils # (A) 0.6 k/uL (0-0.7); Eosinophils % (A) 5 %; HCT 27.7 % (39.0-53.0); HGB 7.8 gm/dL (13.0-17.5); Hypochromasia Marked; Lymphocytes # (A) 2.4 k/uL (1.0-4.8); Lymphocytes % (A) 23 %; MCH 23.6 pg (25.0-35.0); MCHC 28.2 g/dL (31.0-37.0); MCV 83.7 fL (80.0-100.0); Monocytes # (A) 1.1 k/uL (0-1.0); Monocytes % (A) 10 %; Neutrophils % (A) 57 %; Platelet Count 218 k/uL (150-450); Poikilocytosis Slight; RBC 3.31 m/uL (4.30-5.90); RDW 18.5 % (11.5-15.5); WBC 10.6 k/uL (3.8-10.6)
[2017-07-23] MEDS: SYMBICORT 160-4.5 MCG INHALER INHALATION SCH ×2 (08:33→19:37)
[2017-07-23 08:38] LABS: Potassium 4.5 mmol/L (3.5-5.1); Total Protein 5.3 g/dL (6.3-8.2)
[2017-07-23 08:41] LABS: Calcium 8.1 mg/dL (8.4-10.2); Total Bilirubin 0.2 mg/dL (0.2-1.3)
[2017-07-23 09:22] LABS: INR 1.9 (<1.2); Prothrombin Time 17.4 sec (9.0-12.0)
[2017-07-23] MEDS: QUEtiapine 25 MG TAB PO SCH ×2 (09:56→20:40)
[2017-07-23] MEDS: diphenhydrAMINE 50 MG/ML 1 ML VIAL IVP PRN ×2 (09:58→16:31)
[2017-07-23] MEDS: FERROUS SULFATE 325 MG TAB PO SCH ×2 (10:52→20:41)
[2017-07-23] MEDS: MAGNESIUM OXIDE 400 MG TAB PO SCH ×2 (10:52→20:41)
[2017-07-23] MEDS: CALCIUM CARB-VIT D 250MG-125UN 1 EACH TAB PO SCH ×2 (10:52→20:41)
[2017-07-23] MEDS: PYRIDOXINE 50 MG TAB PO SCH (10:52)
[2017-07-23] MEDS: SUCRALFATE 1 GM TAB PO SCH ×2 (10:52→21:05)
[2017-07-23] MEDS: CHOLECALCIFEROL 1,000 UNIT TAB PO SCH (10:52)
[2017-07-23] MEDS ORDERED: QUEtiapine 25 MG TAB PO SCH (11:15)
--- NOTE | 2017-07-23 12:22 | P.GSCN ---
History of Present Illness Consult date: 07/23/17 Reason for Consult: Abdominal pain History of present illness: 47-year-old male being seen at the request of the attending for a surgical eval patient developed abdominal pain. Patient has a very complex surgical history. Patient states he has had multiple organ transplant which was of stomach, small bowel, pancreas, duodenum done 2002 at [facility]. 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 states he has had several admissions for abdominal pain. Patient was last hospitalized in April 2017 for abdominal pain states he's been having more gas and more bloating sensation. Patient states that he normally has abdominal pain couple times a year requiring hospitalization put on bowel rest with ice chips and IV fluid. Patient states this therapy works for him in the abdominal pain resolves cannot tolerate a nasal gastric tube. Patient reportedly was previously hospitalized in March 2017 patient stated that he had a GI bleed at that time was transferred down to [facility] and treated. 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 History of Any Multi-Drug Resistant Organisms: MRSA Year Discovered:: 05/29/17 MDRO Source:: BRONCH WASH Additional Past Surgical History / Comment(s): Multivisceral organ transplant including bowel, pancreas, and stomach at [facility], left knee arthrotomy, EGD, colonoscopy, ERCP with insertion of a pancreatic duct stent Past Anesthesia/Blood Transfusion Reactions: No Reported Reaction Additional Past Anesthesia/Blood Transfusion Reaction / Comm: STATES R/T TO MULTIPLE SX HE REQUIRES A LOT OF MEDICATION for anesthesia. He has had multiple blood transfusions without reaction. Smoking Status: Former smoker - Past Family History Mother History Unknown: Yes Additional Family Medical History / Comment(s): pt is adopted, does not know any hx Father History Unknown: Yes Additional Family Medical History / Comment(s): pt is adopted, does not know any hx Medications and Allergies Home Medications Medication Instructions Recorded Confirmed Type Calcium Citrate/Vitamin D3 1 tab PO BID 09/02/13 07/22/17 History [Calcium Citrate - Vit D3 Tab] Ferrous Gluconate 325 mg PO BID 09/02/13 07/22/17 History Magnesium Gluconate [Magonate] 500 mg PO BID 09/02/13 07/22/17 History Multivitamin [Men's Multi-Vitamin] 1 tab PO QAM 09/02/13 07/22/17 History Sertraline [Zoloft] 150 mg PO QAM 09/02/13 07/22/17 History Tacrolimus [Prograf] 1 mg PO HS 09/02/13 07/22/17 History Tacrolimus [Prograf] 2 mg PO QAM 09/02/13 07/22/17 History Cholecalciferol (Vitamin D3) 10,000 unit PO QAM 09/22/15 07/22/17 History [Vitamin D3] Hydrocortisone 10 mg PO HS 09/22/15 07/22/17 History Pjroke-Xzobbgkz-Rmcoznp [Zenpep 10] 1 cap PO BID 09/22/15 07/22/17 History Sulfamethoxazole/Trimethoprim 0.5 tab PO MOWEFR 08/02/16 07/22/17 History [Bactrim DS 800-160 mg] Ipratropium [place] [Atrovent Hfa] 2 puff INHALATION RT-BID 09/03/16 07/22/17 History Albuterol Sulfate [Proair Hfa] 1 - 2 puff INHALATION RT-Q6H PRN 12/19/16 History Fludrocortisone [Florinef] 0.1 mg PO DAILY 12/19/16 07/22/17 History traZODone HCL 100 mg PO HS 12/19/16 07/22/17 History Gabapentin [Neurontin] 300 mg PO TID 03/23/17 07/22/17 History HYDROcodone/APAP 10-325MG [[place] 1 tab PO Q4HR PRN 03/23/17 07/22/17 History 10-325] Hydrocortisone [Cortef] 20 mg PO QAM 03/23/17 07/22/17 History Methadone HCl [Dolophine HCl] 5 mg PO HS 03/23/17 07/22/17 History Sucralfate [Carafate] 1 gm PO BID 03/23/17 07/22/17 History Budesonide/Formoterol Fumarate 2 puff INHALATION RT-BID 05/17/17 07/22/17 History [Symbicort 160-4.5 Mcg Inhaler] Methadone [Dolophine] 10 mg PO QAM 05/17/17 07/22/17 History Metoprolol Succinate [Toprol XL] 25 mg PO DAILY 05/17/17 07/22/17 History Omeprazole 40 mg PO BID 05/17/17 07/22/17 History Pyridoxine [Vitamin B-6] 50 mg PO DAILY 05/17/17 07/22/17 History Cefdinir [Omnicef] 300 mg PO BID 07/22/17 07/22/17 History Fluticasone Nasal [place] [Flonase 2 spr EA NOSTRIL DAILY PRN 07/22/17 07/22/17 History Nasal [place]] Warfarin [Coumadin] 5 mg PO HS 07/22/17 07/22/17 History QUEtiapine [SEROquel] 25 mg PO BID 07/23/17 07/23/17 History Allergies Allergy/AdvReac Type Severity Reaction Status Date / Time aspirin Allergy GI Verified 07/22/17 13:56 BLEEDING , ABDOMINAL PAIN heparin AdvReac abdominal Verified 07/22/17 13:56 pain , GI bleeding ketorolac tromethamine AdvReac migraines Verified 07/22/17 13:56 [From Toradol] morphine AdvReac Itching Verified 07/22/17 13:56 Surgical - Exam Vital Signs Temp Pulse Resp BP Pulse Ox 97.7 F 85 24 100/43 98 07/22/17 12:11 07/22/17 12:11 07/22/17 12:11 07/22/17 12:11 07/22/17 12:11 GENERAL APPEARANCE: 47-year-old male sitting up in bed is alert, oriented, in no acute distress. Taking ice chips VITAL SIGNS: Reviewed HEENT: Head is normocephalic and atraumatic. Pupils are equal and reactive. The nares are patent. Oropharynx is clear without lesions. NECK: Supple without lymphadenopathy. Traches midline. HEART: S1, S2. Regular rate and rhythm. Currently denying chest pain LUNGS: No crackles or wheezes are heard. Adequate air movement on room air no cough ABDOMEN: Soft, multiple surgical scars to the abdominal wall no bloating no abdominal distention states has mild tenderness nontender, nondistended with good bowel sounds. No peritoneal signs. No palpable organomegaly or masses. EXTREMITIES: Normal skin color and turgor. No cyanosis, rash, ulceration, clubbing or edema. Radial pedal pulses are 2/4 bilaterally. Peripheral IV left axillary area no redness NEUROLOGICAL: No focal deficits. Strength and sensation are grossly intact. Results - Labs 07/23/17 07:55 07/23/17 07:55 Abnormal Lab Results - Last 24 Hours (Table) 07/22/17 07/22/17 07/22/17 Range/Units 13:13 13:13 13:13 WBC 17.5 H (3.8-10.6) k/uL RBC 3.55 L (4.30-5.90) m/uL Hgb 8.3 L (13.0-17.5) gm/dL Hct 29.6 L (39.0-53.0) % MCH 23.4 L (25.0-35.0) pg MCHC 28.1 L (31.0-37.0) g/dL RDW 17.9 H (11.5-15.5) % Neutrophils # 13.2 H (1.3-7.7) k/uL Monocytes # 1.2 H (0-1.0) k/uL PT (9.0-12.0) sec INR (<1.2) APTT (22.0-30.0) sec Creatinine 1.40 H (0.66-1.25) mg/dL Calcium (8.4-10.2) mg/dL Total Bilirubin 0.1 L (0.2-1.3) mg/dL Total Creatine Kinase 36 L (55-170) U/L Total Protein 6.0 L (6.3-8.2) g/dL Albumin 3.4 L (3.5-5.0) g/dL Urine Protein (Negative) 07/22/17 07/22/17 07/22/17 Range/Units 13:13 14:02 23:30 WBC (3.8-10.6) k/uL RBC (4.30-5.90) m/uL Hgb (13.0-17.5) gm/dL Hct (39.0-53.0) % MCH (25.0-35.0) pg MCHC (31.0-37.0) g/dL RDW (11.5-15.5) % Neutrophils # (1.3-7.7) k/uL Monocytes # (0-1.0) k/uL PT 15.9 H (9.0-12.0) sec INR 1.7 H (<1.2) APTT 30.5 H 154.8 H* (22.0-30.0) sec Creatinine (0.66-1.25) mg/dL Calcium (8.4-10.2) mg/dL Total Bilirubin (0.2-1.3) mg/dL Total Creatine Kinase (55-170) U/L Total Protein (6.3-8.2) g/dL Albumin (3.5-5.0) g/dL Urine Protein Trace H (Negative) 07/23/17 07/23/17 07/23/17 Range/Units 07:55 07:55 07:55 WBC (3.8-10.6) k/uL RBC 3.31 L (4.30-5.90) m/uL Hgb 7.8 L (13.0-17.5) gm/dL Hct 27.7 L (39.0-53.0) % MCH 23.6 L (25.0-35.0) pg MCHC 28.2 L (31.0-37.0) g/dL RDW 18.5 H (11.5-15.5) % Neutrophils # (1.3-7.7) k/uL Monocytes # 1.1 H (0-1.0) k/uL PT (9.0-12.0) sec INR (<1.2) APTT 44.3 H (22.0-30.0) sec Creatinine 1.32 H (0.66-1.25) mg/dL Calcium 8.1 L (8.4-10.2) mg/dL Total Bilirubin (0.2-1.3) mg/dL Total Creatine Kinase (55-170) U/L Total Protein 5.3 L (6.3-8.2) g/dL Albumin 3.0 L (3.5-5.0) g/dL Urine Protein (Negative) 07/23/17 Range/Units 07:55 WBC (3.8-10.6) k/uL RBC (4.30-5.90) m/uL Hgb (13.0-17.5) gm/dL Hct (39.0-53.0) % MCH (25.0-35.0) pg MCHC (31.0-37.0) g/dL RDW (11.5-15.5) % Neutrophils # (1.3-7.7) k/uL Monocytes # (0-1.0) k/uL PT 17.4 H (9.0-12.0) sec INR 1.9 H (<1.2) APTT (22.0-30.0) sec Creatinine (0.66-1.25) mg/dL Calcium (8.4-10.2) mg/dL Total Bilirubin (0.2-1.3) mg/dL Total Creatine Kinase (55-170) U/L Total Protein (6.3-8.2) g/dL Albumin (3.5-5.0) g/dL Urine Protein (Negative) Diabetes panel 07/22/17 07/23/17 Range/Units 13:13 07:55 Sodium 139 142 (137-145) mmol/L Potassium 4.4 4.5 (3.5-5.1) mmol/L Chloride 103 105 (98-107) mmol/L Carbon Dioxide 28 29 (22-30) mmol/L BUN 20 16 (9-20) mg/dL Creatinine 1.40 H 1.32 H (0.66-1.25) mg/dL Glucose 95 81 (74-99) mg/dL Calcium 9.2 8.1 L (8.4-10.2) mg/dL AST 18 18 (17-59) U/L ALT 23 36 (21-72) U/L Alkaline Phosphatase 69 71 (38-126) U/L Total Protein 6.0 L 5.3 L (6.3-8.2) g/dL Albumin 3.4 L 3.0 L (3.5-5.0) g/dL Calcium panel 07/22/17 07/23/17 Range/Units 13:13 07:55 Calcium 9.2 8.1 L (8.4-10.2) mg/dL Albumin 3.4 L 3.0 L (3.5-5.0) g/dL Pituitary panel 07/22/17 07/23/17 Range/Units 13:13 07:55 Sodium 139 142 (137-145) mmol/L Potassium 4.4 4.5 (3.5-5.1) mmol/L Chloride 103 105 (98-107) mmol/L Carbon Dioxide 28 29 (22-30) mmol/L BUN 20 16 (9-20) mg/dL Creatinine 1.40 H 1.32 H (0.66-1.25) mg/dL Glucose 95 81 (74-99) mg/dL Calcium 9.2 8.1 L (8.4-10.2) mg/dL Adrenal panel 07/22/17 07/23/17 Range/Units 13:13 07:55 Sodium 139 142 (137-145) mmol/L Potassium 4.4 4.5 (3.5-5.1) mmol/L Chloride 103 105 (98-107) mmol/L Carbon Dioxide 28 29 (22-30) mmol/L BUN 20 16 (9-20) mg/dL Creatinine 1.40 H 1.32 H (0.66-1.25) mg/dL Glucose 95 81 (74-99) mg/dL Calcium 9.2 8.1 L (8.4-10.2) mg/dL Total Bilirubin 0.1 L 0.2 (0.2-1.3) mg/dL AST 18 18 (17-59) U/L ALT 23 36 (21-72) U/L Alkaline Phosphatase 69 71 (38-126) U/L Total Protein 6.0 L 5.3 L (6.3-8.2) g/dL Albumin 3.4 L 3.0 L (3.5-5.0) g/dL Assessment and Plan Assessment: Impression History of multi-organ transplant stomach, pancreas,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 done at the [facility] History of obstructive sleep apnea COPD no evidence of an exacerbation History of Gastroparesis History of paroxysmal atrial fibrillation on anticoagulation Coumadin Left arm positive for DVT subclavian vein extending into the axillary present on admission Present on admission acute on chronic abdominal pain with abdominal distention unclear etiology Plan We'll repeat an abdominal x-ray in the morning follow up on results No evidence of an acute surgical abdomen at this time Continue with the recommendations by medicine defer to Home meds as appropriate Ice chips for now if tolerated we'll start clear liquids IV fluid for hydration DVT and GI prophylaxis We'll follow with you Surgical consultation note dictated for Dr. jeremías blount The above impression and plan of care have been discussed and directed by signing physician. Summer Quintana nurse practitioner acting as scribe for signing physician.
[2017-07-23] MEDS ORDERED: SODIUM CHLORIDE 0.9% 1,000 ML IV SCH (14:00)
[2017-07-23] MEDS: SODIUM CHLORIDE 0.9% 1,000 ML IV SCH (14:24)
[2017-07-23] MEDS ORDERED: NALOXONE 0.4 MG/ML 1 ML VIAL IV PRN (14:59)
[2017-07-23] MEDS ORDERED: LORazepam 0.5 MG TAB PO PRN (14:59)
[2017-07-23] MEDS ORDERED: MELATONIN 3 MG TABLET PO PRN (14:59)
--- NOTE | 2017-07-23 15:14 | P.CNPUL ---
History of Present Illness Consult date: 07/23/17 Requesting physician: Angel Swanson Reason for consult: dyspnea, abnormal CXR/CT Chief complaint: Abdominal pain, shortness of breath History of present illness: This is a very pleasant 47-year-old gentleman who follows with Dr. Zhao as his primary care physician. 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 He does follow closely with Dr. Daniels in our office as well. He had recently undergone bronchoscopy with BAL and May 2017 and was found to have an MRSA infection and was treated appropriately. 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 The patient presented here yesterday to the emergency room with multiple complaints. That mostly being of abdominal pain located in the upper abdomen over the last 2-3 days. Also had some complaints of shortness of breath, cough and congestion. He was treated with antibiotics in the outpatient setting for pleuritic type chest pain. That pain has subsided however he does remain dyspneic on minimal exertion. He is maintaining good O2 saturations in the 90s on room air. Initial white count 17.5. Current white count 10.6. Hemoglobin 7.8. Presenting INR 1.7. Current INR 1.9. The patient was found to have left upper extremity venous thrombosis involving the subclavian vein extending to the axilla and brachiocephalic vein. There is also noted thrombosis in the internal jugular vein on the left. He is currently on a heparin drip. Computed tomography scan of the chest revealed new multifocal reticular nodular opacities that were not present on the previous exam in April 2017. Most likely reflecting multifocal pneumonia in this immunocompromised patient. He has been initiated on vancomycin, meropenem and Zosyn. He is continued on Bactrim on Saturday. Review of Systems 14 point review of system was conducted. All negative other than as mentioned in HPI. 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 History of Any Multi-Drug Resistant Organisms: MRSA Date of last positivie culture/infection: 05/29/17 MDRO Source:: BRONCH WASH Additional Past Surgical History / Comment(s): Multivisceral organ transplant including bowel, pancreas, and stomach at [facility], left knee arthrotomy, EGD, colonoscopy, ERCP with insertion of a pancreatic duct stent Past Anesthesia/Blood Transfusion Reactions: No Reported Reaction Additional Past Anesthesia/Blood Transfusion Reaction / Comment(s): STATES R/T TO MULTIPLE SX HE REQUIRES A LOT OF MEDICATION for anesthesia. He has had multiple blood transfusions without reaction. Smoking Status: Former smoker - Past Family History Mother History Unknown: Yes Additional Family Medical History / Comment(s): pt is adopted, does not know any hx Father History Unknown: Yes Additional Family Medical History / Comment(s): pt is adopted, does not know any hx Medications and Allergies Home Medications Medication Instructions Recorded Confirmed Type Calcium Citrate/Vitamin D3 1 tab PO BID 09/02/13 07/22/17 History [Calcium Citrate - Vit D3 Tab] Ferrous Gluconate 325 mg PO BID 09/02/13 07/22/17 History Magnesium Gluconate [Magonate] 500 mg PO BID 09/02/13 07/22/17 History Multivitamin [Men's Multi-Vitamin] 1 tab PO QAM 09/02/13 07/22/17 History Sertraline [Zoloft] 150 mg PO QAM 09/02/13 07/22/17 History Tacrolimus [Prograf] 1 mg PO HS 09/02/13 07/22/17 History Tacrolimus [Prograf] 2 mg PO QAM 09/02/13 07/22/17 History Cholecalciferol (Vitamin D3) 10,000 unit PO QAM 09/22/15 07/22/17 History [Vitamin D3] Hydrocortisone 10 mg PO HS 09/22/15 07/22/17 History Wdhypk-Nsfjfyks-Iauyuzu [Zenpep 10] 1 cap PO BID 09/22/15 07/22/17 History Sulfamethoxazole/Trimethoprim 0.5 tab PO MOWEFR 08/02/16 07/22/17 History [Bactrim DS 800-160 mg] Ipratropium [place] [Atrovent Hfa] 2 puff INHALATION RT-BID 09/03/16 07/22/17 History Albuterol Sulfate [Proair Hfa] 1 - 2 puff INHALATION RT-Q6H PRN 12/19/16 History Fludrocortisone [Florinef] 0.1 mg PO DAILY 12/19/16 07/22/17 History traZODone HCL 100 mg PO HS 12/19/16 07/22/17 History Gabapentin [Neurontin] 300 mg PO TID 03/23/17 07/22/17 History HYDROcodone/APAP 10-325MG [[place] 1 tab PO Q4HR PRN 03/23/17 07/22/17 History 10-325] Hydrocortisone [Cortef] 20 mg PO QAM 03/23/17 07/22/17 History Methadone HCl [Dolophine HCl] 5 mg PO HS 03/23/17 07/22/17 History Sucralfate [Carafate] 1 gm PO BID 03/23/17 07/22/17 History Budesonide/Formoterol Fumarate 2 puff INHALATION RT-BID 05/17/17 07/22/17 History [Symbicort 160-4.5 Mcg Inhaler] Methadone [Dolophine] 10 mg PO QAM 05/17/17 07/22/17 History Metoprolol Succinate [Toprol XL] 25 mg PO DAILY 05/17/17 07/22/17 History Omeprazole 40 mg PO BID 05/17/17 07/22/17 History Pyridoxine [Vitamin B-6] 50 mg PO DAILY 05/17/17 07/22/17 History Cefdinir [Omnicef] 300 mg PO BID 07/22/17 07/22/17 History Fluticasone Nasal [place] [Flonase 2 spr EA NOSTRIL DAILY PRN 07/22/17 07/22/17 History Nasal [place]] Warfarin [Coumadin] 5 mg PO HS 07/22/17 07/22/17 History QUEtiapine [SEROquel] 25 mg PO BID 07/23/17 07/23/17 History Allergies Allergy/AdvReac Type Severity Reaction Status Date / Time aspirin Allergy GI Verified 07/22/17 13:56 BLEEDING , ABDOMINAL PAIN heparin AdvReac abdominal Verified 07/22/17 13:56 pain , GI bleeding ketorolac tromethamine AdvReac migraines Verified 07/22/17 13:56 [From Toradol] morphine AdvReac Itching Verified 07/22/17 13:56 Physical Exam Vitals: Vital Signs Temp Pulse Pulse Resp BP BP Pulse Ox 07/23/17 11:35 77 16 121/58 94 L 07/23/17 08:00 96.7 F L 76 18 120/55 95 07/23/17 04:00 85 17 114/59 95 07/23/17 00:00 97.3 F L 77 17 111/54 93 L 07/22/17 20:00 97.0 F L 77 16 116/63 94 L 07/22/17 17:38 98 F 71 16 118/58 97 Intake and Output 07/22/17 07/23/17 07/23/17 22:59 06:59 14:59 Intake Total 364.105 165.808 Output Total 200 1160 1150 Balance -200 -795.895 -984.192 Intake: Intake, IV Titration 364.105 165.808 Amount Heparin Sod,Pork in 0.45% 364.105 115.808 NaCl 25,000 unit In 0.45 % NaCl 1 500ml.bag @ 18 UNITS/KG/HR 36.74 mls/hr IV .[id number] GUY Rx#: [id number] Piperacillin-Tazobactam 3 50 .375 gm In Dextrose/Water 1 50ml.bag @ 12.5 mls/hr IVPB Q8HR GUY Rx#: [id number] Output: Urine 200 1160 1150 Other: Voiding Method Urinal Urinal Urinal # Voids 1 Weight 99.8 kg GENERAL EXAM: Pale, weak. Alert, fairly comfortable in no apparent distress. HEAD: Normocephalic. EYES: Normal reaction of pupils, equal size. NOSE: Clear with pink turbinates. THROAT: No erythema or exudates. NECK: No masses, no JVD. CHEST: No chest wall deformity. LUNGS: Equal air entry with bilateral scattered rhonchi. Diminished.. CVS: S1 and S2 normal with no audible murmur, regular rhythm. ABDOMEN: Slightly distended, normal bowel sounds, no guarding or rigidity. SPINE: No scoliosis or deformity SKIN: No rashes CENTRAL NERVOUS SYSTEM: No focal deficits, tone is normal in all 4 extremities. EXTREMITIES: Left upper extremity edema. No clubbing, no cyanosis. Peripheral pulses are intact. Results - Laboratory Findings CBC and BMP: 07/23/17 07:55 07/24/17 05:43 PT/INR, D-dimer PT 17.4 sec (9.0-12.0) H 07/23/17 07:55 INR 1.9 (<1.2) H 07/23/17 07:55 Abnormal lab findings: Abnormal Labs 07/22/17 07/22/17 07/22/17 13:13 13:13 13:13 WBC 17.5 H RBC 3.55 L Hgb 8.3 L Hct 29.6 L MCH 23.4 L MCHC 28.1 L RDW 17.9 H Neutrophils # 13.2 H Monocytes # 1.2 H PT INR APTT Creatinine 1.40 H Calcium Total Bilirubin 0.1 L Total Creatine Kinase 36 L Total Protein 6.0 L Albumin 3.4 L Urine Protein 07/22/17 07/22/17 07/22/17 13:13 14:02 23:30 WBC RBC Hgb Hct MCH MCHC RDW Neutrophils # Monocytes # PT 15.9 H INR 1.7 H APTT 30.5 H 154.8 H* Creatinine Calcium Total Bilirubin Total Creatine Kinase Total Protein Albumin Urine Protein Trace H 07/23/17 07/23/17 07/23/17 07:55 07:55 07:55 WBC RBC 3.31 L Hgb 7.8 L Hct 27.7 L MCH 23.6 L MCHC 28.2 L RDW 18.5 H Neutrophils # Monocytes # 1.1 H PT INR APTT 44.3 H Creatinine 1.32 H Calcium 8.1 L Total Bilirubin Total Creatine Kinase Total Protein 5.3 L Albumin 3.0 L Urine Protein 07/23/17 07:55 WBC RBC Hgb Hct MCH MCHC RDW Neutrophils # Monocytes # PT 17.4 H INR 1.9 H APTT Creatinine Calcium Total Bilirubin Total Creatine Kinase Total Protein Albumin Urine Protein - Diagnostic Findings Chest x-ray: image reviewed CT scan - chest: image reviewed Assessment and Plan Assessment: Assessment #1 Abdominal pain of unclear etiology. CT angiogram of the abdomen revealed the proximal sigmoid has become even more dilated than the prior exam with mild circumferential wall thickening extending to the remainder of the sigmoid. Questionable findings of either trapped dependent air along the posterior sigmoid or mild colonic pneumatosis. Surgical services are consulted. #2 Acute venous thrombosis involving the subclavian vein extending in the axilla and brachiocephalic vein on the left upper extremity. Internal jugular vein also appears to be thrombosed. The patient has been on warfarin in the outpatient setting, presenting subtherapeutic at 1.7 INR. #3 Dyspnea secondary to new multifocal reticulonodular opacities reflecting possible multifocal pneumonia in an immunocompromised patient. There is underlying pulmonary arterial hypertension. #4 Multivisceral organ transplantation done at the [facility] including stomach small bowel and pancreas. Splenectomy. #5 Chronic pancreatitis, requiring insertion of a pancreatic stent and the patient is currently up ectatic enzyme supplements #6 Chronic immunosuppression maintain on a combination of Prograf #7 Chronic adrenal insufficiency maintained on Cortef #8 Previous hospitalization for GI bleed #9 Gastroparesis #10 Chronic renal failure #11 Chronic anemia secondary to renal failure #12 Previous exposure to MRSA most recently noted in bronchial washings from 10/2017. 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 Plan: The patient was seen and evaluated by Dr. Duarte. Chest x-ray, CAT scans and labs were all reviewed. We'll continue with DuoNeb inhalations, Symbicort, Cortef. The patient is covered with vancomycin, Zosyn and meropenem. He is continued on Bactrim Saturday. Continue with heparin drip for now regarding the thrombosis. We'll repeat a chest x-ray in the a.m. We will continue to follow and make further recommendations based on his clinical status. I, the cosigning physician, performed a history & physical examination of the patient. Lungs sounds have few scattered rhonchi. Maintaining good O2 saturations in the 90s on room air. I discussed the assessment and plan of care with my nurse practitioner, Zenobia Haney. I attest to the above note as dictated by her. Time with Patient: Greater than 30
[2017-07-23] MEDS: IPRATROPIUM-ALBUTEROL 3 ML NEB INHALATION SCH ×2 (15:46→19:37)
[2017-07-23] MEDS ORDERED: PIPERACILLIN-TAZOBACTAM 3.375 GM in DEXTROSE/WATER 1 50ML.BAG IVPB SCH (16:00)
[2017-07-23] MEDS ORDERED: MEROPENEM 1 GM in SODIUM CHLORIDE 0.9% 100 ML IVPB SCH (16:00)
--- NOTE | 2017-07-23 16:29 | HP ---
HISTORY AND PHYSICAL DATE OF ADMISSION: 07/22/2017 PRESENTING COMPLAINT: Abdominal pain, short of breath. HISTORY OF PRESENTING COMPLAINT: This is a 47-year-old patient who follows with Dr. Zhao. Patient had a multivisceral transplant in [place] that included mesenteric vein graft, then followed by mesenteric graft thrombosis and some subsequent gastroparesis. Patient does take Coumadin. Patient did have intestinal tract obstruction from congenital defect. Patient's other chronic stable medical conditions include adrenal insufficiency, chronic anemia. The patient also had a 4-organ transplant in 2002, including small bowel, pancreas, duodenum and stomach in [place]. The patient also had valvular cardiac surgery done. At baseline, patient has anywhere from 2-4 bowel movements a day. Patient was a cigarette smoker up until about a week ago. Patient stated he had pneumonia as an outpatient, was being treated with Omnicef by Dr. Zhao. Patient states that he is having increasing abdominal pain and distention, and from a baseline of about 2-4 bowel movements a day, he has had in the last few days about 3-4 bowel movements only. Patient is increasingly short of breath; not much cough or sputum right now. He gets easily tired. REVIEW OF SYSTEMS: CONSTITUTIONAL: Weak, tired. HEENT: None. RESPIRATORY: Shortness of breath, cough. No sputum. CARDIOVASCULAR: None. GASTROINTESTINAL: As above. GENITOURINARY: None. MUSCULOSKELETAL: None. DERMATOLOGICAL: Chronic skin changes. HEMATOLOGICAL: None. LYMPHATICS: None. PSYCHIATRY: Anxiety, depression. NEUROLOGICAL: None. PAST MEDICAL HISTORY: 1. Atrial fibrillation. 2. COPD. 3. GERD. 4. 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 5. Patient also had mesenteric vein graft thrombosis. 6. Gastritis. 7. Gastroparesis. 8. Adrenal insufficiency. 9. Chronic anemia. 10.Additional surgery includes left knee surgical repair after a barbed-wire fence incident. 11.Heart surgery for a valve. SOCIAL HISTORY: Patient lives with significant other. He was smoking up until a week ago; had been smoking for several years. Patient used to drink alcohol daily; quit drinking in 2016 and now drinks rarely. FAMILY HISTORY: Patient is adopted. HOME MEDICATIONS: 1. Seroquel 25 p.o. b.i.d. 2. Trazodone 100 mg p.o. at bedtime. 3. Coumadin 5 mg p.o. at bedtime. 4. Prograf 2 mg p.o. daily, 1 mg p.o. at bedtime. 5. Bactrim 800/160 half a tablet Saturday, Saturday, Saturday. 6. Carafate 1 gram p.o. b.i.d. 7. Zoloft 150 mg p.o. daily. 8. Vitamin B6 50 mg p.o. daily. 9. Omeprazole 40 mg p.o. b.i.d. 10.Multivitamin 1 tablet p.o. daily. 11.Toprol XL 25 p.o. daily. 12.Methadone 5 mg at bedtime. 13.Methadone 10 mg p.o. in the morning. 14.Magnesium gluconate 500 mg p.o. b.i.d. 15.Zenpep 1 capsule p.o. b.i.d. 16.Atrovent HFA 2 puffs b.i.d. 17.Cortef 20 mg in the morning, 10 mg in the evening. 18.[place] 10 one tablet q.4 p.r.n. 19.Neurontin 300 mg t.i.d. 20.Flonase 2 sprays each nostril daily p.r.n. 21.Florinef 0.1 mg p.o. daily. 22.Iron 325 p.o. b.i.d. 23.Vitamin D3 10,000 units p.o. in the morning. 24.Omnicef 300 mg b.i.d. 25.Calcium with vitamin D3 one tablet p.o. b.i.d. 26.Symbicort 160/4.5 two puffs b.i.d. 27.ProAir 1-2 puffs q.6 p.r.n. ALLERGIES: 1. ASPIRIN. 2. HEPARIN. 3. TORADOL. 4. MORPHINE. PHYSICAL EXAMINATION: VITAL SIGNS ON PRESENTATION: Temperature 97.7, pulse 85, respiration 24, blood pressure 100/43, pulse ox 98% on room air. GENERAL APPEARANCE: Average build. Lying in bed, tired-appearing. EYES: Pupils equal. Conjunctivae normal. HEENT: External appearance of nose and ears normal. Oral cavity normal. NECK: JVD not raised. Mass not palpable. RESPIRATORY: Effort increased. LUNGS: Diminished breath sounds. CARDIOVASCULAR: First and second sounds normal. Minimal edema. ABDOMEN: Slightly distended. Soft. Bowel sounds present. Liver and spleen not palpable. Scars are present. LYMPHATIC: No lymph node palpable in neck or axillae. PSYCHIATRY: Alert and oriented x3. Mood and affect slightly anxious-appearing. NEUROLOGICAL: Pupils equal. Cranial nerves grossly intact. Power and sensation grossly intact. INVESTIGATIONS: Admission labs showed white count 17.5, hemoglobin 8.3, platelets 180. Repeat white count today is 10.6. INR is 1.9. Potassium 4.4. BUN 20, creatinine 1.4. sinus rhythm. Chest x-ray shows infiltrates. Chest CTA shows some new opacities. CT scan of the abdomen and pelvis showed findings rather extensive, including previous surgical findings. ASSESSMENT: 1. Acute multilateral, bilateral, multi-segmental pneumonia; suspect Gram-negative organism in a patient who is chronically immunosuppressed. 2. Chronic obstructive pulmonary disease in an ex-smoker. 3. Four organ transplants in 2002, including small bowel, pancreas, duodenum, stomach, being followed at [facility]. 4. Gastroesophageal reflux disease. 5. Chronic gastroparesis. 6. Chronic mesenteric vein thrombosis, for which patient is on Coumadin. 7. Chronic kidney disease, stage III. 8. Immunosuppressed state. PLAN: Patient's home medications will be resumed. Patient will be put on IV meropenem. Also will consult Dr. Duarte from Pulmonary and Dr. Ortega from General Surgery, given the abdominal findings on the CT scan. Care was discussed with the patient. Patient is currently n.p.o. per Surgery. Also consultations have been requested from Nephrology and GI. MMODL / IJN: [id number] /
[2017-07-23] MEDS: NICOTINE 14MG/24HR PATCH TRANSDERM SCH (16:32)
--- NOTE | 2017-07-23 17:44 | CONS ---
CONSULTATION . REASON FOR CONSULT: Renal failure. HISTORY OF PRESENT ILLNESS: Patient is a 47-year-old male who was admitted to the hospital yesterday with complaints of abdominal pain. The patient also stated he had not been feeling well. He had some nausea. He denied any fever or chills. No chest pain. No significant urinary symptoms. The patient denies any prior history of kidney diseases. The patient has had an extensive multivisceral organ transplant at the [facility], which is bowel, pancreatitis, and stomach for congenital defect in organ development. The patient is currently maintained on Prograf for immunosuppression. I do not see CellCept or Myfortic on his med list. The patient is also on Bactrim 3 times a week for prophylaxis. His serum creatinine was 1.4 mg/dL yesterday and it is at 1.3 today. Review of previous labs shows the previous creatinine of 1.4 and 1.5 mg/dL in March of 2017. In April, it was as low as 1.1. Patient did have a CT with IV contrast yesterday. The blood pressure has not been low. The patient is maintained on IV fluids at 75 mL an hour. Vancomycin has been ordered as well. PAST MEDICAL HISTORY: Congenital defect in intestinal tract. Status post multivisceral transplant. The transplant of his stomach, small bowel pancreatitis in 2002 at [facility]. Paroxysmal atrial fibrillation, chronic back pain. His renal insufficiency, COPD, previous history of MRSA infection and GI bleed, gastroparesis, history of pancreatitis, pleurisy. PAST SURGICAL HISTORY: Multivisceral organ transplant at the [facility], left knee arthroscopy, EGD, colonoscopy, ERCP. SOCIAL HISTORY: Patient is a former smoker. No history of drug abuse or alcohol abuse. CURRENT MEDICATIONS: Include calcium citrate, iron, magnesium, multivitamin, Zoloft, Prograf, hydrocortisone, Bactrim, Zenpep, albuterol, trazodone, Neurontin, Cortef, Carafate, vitamin B6, Omnicef, Coumadin, Seroquel. ALLERGIES: INCLUDE TORADOL, MORPHINE, HEPARIN, ASPIRIN. EXAMINATION: Patient is currently awake, comfortable, alert and oriented x3. He is not in any acute distress. Blood pressure is 121/68, heart rate 77 per minute. He is afebrile. Examination of the heart S1, S2. Examination of the lungs bilateral breath sounds are heard. Abdomen is soft. Minimal tenderness noted in the central abdomen. No rebound tenderness is noted. Examination of the lower extremities shows no evidence of edema. Skin exam is grossly intact. Patient moving all 4 extremities. LABS SHOW: Sodium 142, potassium 4.2, chloride 105, BUN 16, serum creatinine 1.32, hemoglobin 7.8 g/dL. UA shows trace protein. ' ASSESSMENT: 1. Acute kidney injury, likely prerenal. Continue with IV fluids. The patient did receive IV contrast. Therefore, we need to continue with aggressive IV hydration and avoid any nephrotoxic agents. Vancomycin has been ordered and consider discontinuation of vancomycin unless absolutely necessary. Patient is also on the Bactrim for prophylaxis, which we will continue for now. 2. Chronic kidney disease stage III, with the previous creatinine staying at about 1.18 mg/dL at its lowest. It has been as high as 1.5 and 2 mg/dL previously. UA is fairly benign with trace proteinuria and review of previous UAs shows trace to negative protein. Etiology is likely nephrosclerosis. The patient is currently not on calcium, urine inhibitor for immunosuppression. I am not sure if he had been previously on cyclosporine. We will continue to monitor the renal function and continue to avoid nephrotoxic agents. Avoid hypotension as well. 3. Abdominal pain with a complex history of multivisceral organ transplant at [facility], being followed by surgery. 4. Anemia with no active bleeding noted with previous history of GI bleed. INR is at 1.9. We will check iron studies. PLAN: 1. IV hydration, hold off. 2. Recommend to DC vancomycin unless absolutely indicated. 3. May continue with the Bactrim. 4. Check iron studies. 5. Repeat labs in a.m. 6. Thank you for this consultation. We will continue to follow the patient with you during his hospitalization. MMODL / IJN: [id number] /
[2017-07-23] MEDS: MEROPENEM 1 GM in SODIUM CHLORIDE 0.9% 100 ML IVPB SCH (20:40)
[2017-07-23] MEDS: HYDROCORTISONE 10 MG TAB PO SCH (20:42)
[2017-07-23] MEDS: METHADONE 5 MG TAB PO SCH (20:48)
[2017-07-23] MEDS: traZODone HCL 100 MG TAB PO SCH (21:05)
--- NOTE | 2017-07-23 22:26 | P.CONS ---
History of Present Illness - Reason for Consult Consult date: 07/23/17 - Chief Complaint Abdominal bloating and cough - History of Present Illness 47-year-old male presents to emergency center feeling poorly with a several-day history of increasing abdominal bloating that was causing increasing discomfort. 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 He done modestly well over time with what appears to be limited rejection issues, but remains immunosuppressed overtime. The patient also relates over the last several days he's had some increasing difficulties with some cough and sputum production. The patient was hospitalized in April which point in time he had pneumonia and severe pleuritic chest pain that is improved after his hospitalization. He was doing relatively well until the onset of the current symptoms. He did relate these having cough without much sputum production. He is not having hemoptysis. He is not having the severe pleuritic chest pain like he had earlier in the year. He's had significant abdominal bloating that has been problematic as of late, his transplant surgeon has related that he has gained some weight and this has had some impact on the organs and seems to be causing some of his bloating and discomfort. He did have difficulties and required pancreatic stent in the past but seems to have normal amylase and lipase at this time. He is denying high- grade fevers chills or rigors but does feel quite poorly overall. Review of Systems HEENT: As per the HPI has congestion in his sinuses and his ears. This is been bothering him for months. He is due to see a new surgeon at the [facility] for further evaluation, he relates that he has had imaging studies without evidence of severe sinus disease, concerns to eustachian tube dysfunction No visual changes. No dysphagia. Lungs: As per the HPI has minimal shortness of breath he has some cough without sputum production, without hemoptysis cardiac: Patient denies substernal pain. He has dyspnea with exertion with the current pulmonary symptoms. He has no orthopnea or PND. Gastrointestinal:Denies nausea, vomiting, diarrhea, constipation, hematemesis, melena, hematochez, As noted is having some bloating and change of stool is following with his transplant surgeon Musculoskeletal: denies significant myalgias or arthralgias. No new joint swelling. Denies new back pain. Skin: Denies new rash or lesions. No new ulcers or wounds are related.. Neuro: Denies headache or visual change. Denies any new onset weakness or difficulty with ambulation. Denies falls or seizures. Psychiatric:Denies anxiety or depression. 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 History of Any Multi-Drug Resistant Organisms: MRSA Year Discovered:: 05/29/17 MDRO Source:: [place] Additional Past Surgical History / Comment(s): Multivisceral organ transplant including bowel, pancreas, and stomach at [facility], left knee arthrotomy, EGD, colonoscopy, ERCP with insertion of a pancreatic duct stent Past Anesthesia/Blood Transfusion Reactions: No Reported Reaction Additional Past Anesthesia/Blood Transfusion Reaction / Comm: STATES R/T TO MULTIPLE SX HE REQUIRES A LOT OF MEDICATION for anesthesia. He has had multiple blood transfusions without reaction. Additional Psychological History / Comment(s): . Medically disabled. Alcohol user to a year ago. No international travel. No experience. No animal exposures. Was a daily tobacco smoker but has decreased or stopped since his pulmonary issues of this year Smoking Status: Former smoker - Past Family History Mother History Unknown: Yes Additional Family Medical History / Comment(s): pt is adopted, does not know any hx Father History Unknown: Yes Additional Family Medical History / Comment(s): pt is adopted, does not know any hx Medications and Allergies Home Medications and Allergies Comment(s): Current Medications Acetaminophen (Tylenol Tab) 650 mg PO Q6HR PRN PRN Reason: Mild Pain or Fever > 100.5 Hydrocodone Bitart/Acetaminophen ([place] 10) 1 each PO Q4HR PRN PRN Reason: Pain Last Admin: 07/23/17 02:23 Dose: 1 each Albuterol/Ipratropium (Duoneb 0.5 Mg-3 Mg/3 Ml Soln) 3 ml INHALATION RT-QID [facility] Last Admin: 07/23/17 19:37 Dose: Not Given Lipase/Protease/Amylase (Zenpep Dr 5,000 Units Capsule) 2 each PO BID-W/MEALS [facility] Last Admin: 07/23/17 16:12 Dose: Not Given Budesonide/Formoterol Fumarate (Symbicort 160-4.5 Mcg Inhaler) 2 puff INHALATION RT-BID [facility] Last Admin: 07/23/17 19:37 Dose: 2 puff Calcium Carbonate (Oscal 250+D) 1 each PO BID [facility] Last Admin: 07/23/17 20:41 Dose: 1 each Cholecalciferol (Vitamin D3) 10,000 unit PO QAM [facility] Last Admin: 07/23/17 10:52 Dose: Not Given Diphenhydramine HCl (Benadryl) 25 mg IVP Q6HR PRN PRN Reason: Allergy Symptoms Last Admin: 07/23/17 16:31 Dose: 25 mg Ferrous Sulfate (Feosol) 325 mg PO BID [facility] Last Admin: 07/23/17 20:41 Dose: 325 mg Fludrocortisone Acetate (Florinef) 0.1 mg PO DAILY [facility] Last Admin: 07/23/17 08:11 Dose: 0.1 mg Gabapentin (Neurontin) 300 mg PO TID [facility] Last Admin: 07/23/17 16:31 Dose: 300 mg Heparin Sodium (Porcine) (Heparin) 0 unit IV PER PROTOCOL PRN; Protocol PRN Reason: Low PTT Last Admin: 07/23/17 09:57 Dose: 4,000 unit Hydrocortisone (Cortef) 20 mg PO QAM [facility] Last Admin: 07/23/17 08:11 Dose: 20 mg Hydrocortisone (Cortef) 10 mg PO HS [facility] Last Admin: 07/23/17 20:42 Dose: 10 mg Heparin Sodium/Sodium Chloride (25,000 unit/ Sodium Chloride) 500 mls @ 36.74 mls/hr IV .[id number] [facility]; 18 UNITS/KG/HR PRN Reason: Protocol Last Titration: 07/23/17 18:15 Dose: 15 units/kg/hr, 30.61 mls/hr Sodium Chloride (Saline 0.9%) 1,000 mls @ 75 mls/hr IV .[id number] [facility] Last Admin: 07/23/17 14:24 Dose: 75 mls/hr Ceftaroline Fosamil 600 mg/ (Sodium Chloride) 250 mls @ 250 mls/hr IVPB Q12H [facility] Meropenem 1 gm/ Sodium (Chloride) 100 mls @ 100 mls/hr IVPB Q12HR [facility] Last Admin: 07/23/17 20:40 Dose: 100 mls/hr Lorazepam (Ativan) 0.5 mg PO Q6HR PRN PRN Reason: Anxiety Magnesium Oxide (Mag-Ox) 400 mg PO BID [facility] Last Admin: 07/23/17 20:41 Dose: 400 mg Melatonin (Melatonin) 3 mg PO HS PRN PRN Reason: Insomnia Methadone HCl (Dolophine) 10 mg PO QAM [facility] Last Admin: 07/23/17 08:12 Dose: 10 mg Methadone HCl (Dolophine) 5 mg PO HS [facility] Last Admin: 07/23/17 20:48 Dose: 5 mg Metoprolol Succinate (Toprol Xl) 25 mg PO DAILY [facility] Last Admin: 07/23/17 08:11 Dose: 25 mg Miscellaneous Information (Rx Info: Iv Contrast Was Given) 1 each MISCELLANE DAILY PRN PRN Reason: Per Protocol Stop: 07/24/17 13:54 Morphine Sulfate (Morphine Sulf) 4 mg IV Q4HR PRN PRN Reason: Severe Pain Last Admin: 07/23/17 20:49 Dose: 4 mg Naloxone HCl (Narcan) 0.2 mg IV Q2M PRN PRN Reason: Opioid Reversal Nicotine (Habitrol 14mg/24hr Patch) 1 patch TRANSDERM Q24H [facility] Last Admin: 07/23/17 16:32 Dose: Not Given Ondansetron HCl (Zofran) 4 mg IVP Q8HR PRN PRN Reason: Nausea And Vomiting Pantoprazole Sodium (Protonix) 40 mg PO AC-BID [facility] Last Admin: 07/23/17 16:32 Dose: 40 mg Pyridoxine HCl (Vitamin B-6) 50 mg PO DAILY [facility] Last Admin: 07/23/17 10:52 Dose: Not Given Quetiapine Fumarate (Seroquel) 25 mg PO BID [facility] Last Admin: 07/23/17 20:40 Dose: 25 mg [facility]raline [facility] ([facility]ft) [facility] Admin: 07/23/17 08:11 Dose: 150 mg Sucralfate (Carafate) 1 gm PO BID [facility] Last Admin: 07/23/17 21:05 Dose: 1 gm Tacrolimus (Prograf) 1 mg PO [facility] Last Admin: 07/23/17 21:05 Dose: 1 mg Tacrolimus (Prograf) [facility] Last Admin: 07/23/17 08:11 Dose: 2 mg Trazodone HCl (Desyrel) 100 mg PO [facility] Last Admin: 07/23/17 21:05 Dose: 100 mg Trimethoprim/Sulfamethoxazole (Bactrim Ds) 0.5 each PO MOWEFR [facility] Last Admin: 07/22/17 20:04 Dose: 0.5 each Home Medications Medication Instructions Recorded Confirmed Type Calcium Citrate/Vitamin D3 1 tab PO BID 09/02/13 07/22/17 History [Calcium Citrate - Vit D3 Tab] Ferrous Gluconate 325 mg PO BID 09/02/13 07/22/17 History Magnesium Gluconate [Magonate] 500 mg PO BID 09/02/13 07/22/17 History Multivitamin [Men's Multi-Vitamin] 1 tab PO [facility] 09/02/13 07/22/17 History Sertraline [Zoloft] 150 mg PO [facility] 09/02/13 07/22/17 History Tacrolimus [Prograf] 1 mg PO 09/02/13 07/22/17 History Tacrolimus [Prograf] 2 mg PO [facility] 09/02/13 07/22/17 History Cholecalciferol (Vitamin D3) 10,000 unit PO [facility] 09/22/15 07/22/17 History [Vitamin D3] Hydrocortisone 10 mg PO 09/22/15 07/22/17 History Mqbbni-Yadnbwwk-Umumkru [Zenpep 10] 1 cap PO BID 09/22/15 07/22/17 History Sulfamethoxazole/Trimethoprim 0.5 tab PO MOWEFR 08/02/16 07/22/17 History [Bactrim DS 800-160 mg] Ipratropium [place] [Atrovent Hfa] 2 puff INHALATION RT-BID 09/03/16 07/22/17 History Albuterol Sulfate [Proair Hfa] 1 - 2 puff INHALATION RT-Q6H PRN 12/19/16 History Fludrocortisone [Florinef] 0.1 mg PO DAILY 12/19/16 07/22/17 History traZODone HCL 100 mg PO HS 12/19/16 07/22/17 History Gabapentin [Neurontin] 300 mg PO TID 03/23/17 07/22/17 History HYDROcodone/APAP 10-325MG [[place] 1 tab PO Q4HR PRN 03/23/17 07/22/17 History 10-325] Hydrocortisone [Cortef] 20 mg PO QAM 03/23/17 07/22/17 History Methadone HCl [Dolophine HCl] 5 mg PO HS 03/23/17 07/22/17 History Sucralfate [Carafate] 1 gm PO BID 03/23/17 07/22/17 History Budesonide/Formoterol Fumarate 2 puff INHALATION RT-BID 05/17/17 07/22/17 History [Symbicort 160-4.5 Mcg Inhaler] Methadone [Dolophine] 10 mg PO QAM 05/17/17 07/22/17 History Metoprolol Succinate [Toprol XL] 25 mg PO DAILY 05/17/17 07/22/17 History Omeprazole 40 mg PO BID 05/17/17 07/22/17 History Pyridoxine [Vitamin B-6] 50 mg PO DAILY 05/17/17 07/22/17 History Cefdinir [Omnicef] 300 mg PO BID 07/22/17 07/22/17 History Fluticasone Nasal [place] [Flonase 2 spr EA NOSTRIL DAILY PRN 07/22/17 07/22/17 History Nasal Graham] Warfarin [Coumadin] 5 mg PO HS 07/22/17 07/22/17 History QUEtiapine [SEROquel] 25 mg PO BID 07/23/17 07/23/17 History Allergies Allergy/AdvReac Type Severity Reaction Status Date / Time aspirin Allergy GI Verified 07/22/17 13:56 BLEEDING , ABDOMINAL PAIN heparin AdvReac abdominal Verified 07/22/17 13:56 pain , GI bleeding ketorolac tromethamine AdvReac migraines Verified 07/22/17 13:56 [From Toradol] morphine AdvReac Itching Verified 07/22/17 13:56 Physical Exam Vitals: Vital Signs Temp Pulse Pulse Resp BP Pulse Ox 07/23/17 16:30 97.3 F L 98 16 123/59 94 L 07/23/17 15:56 80 07/23/17 15:46 80 07/23/17 11:35 77 16 121/58 94 L 07/23/17 08:00 96.7 F L 76 18 120/55 95 07/23/17 04:00 85 17 114/59 95 07/23/17 00:00 97.3 F L 77 17 111/54 93 L Intake and Output 07/23/17 07/23/17 07/23/17 06:59 14:59 22:59 Intake Total 364.105 165.808 252.081 Output Total 1160 1150 1000 Balance -795.895 -984.192 -747.919 Intake: Intake, IV Titration 364.105 165.808 252.081 Amount Heparin Sod,Pork in 0.45% 364.105 115.808 252.081 NaCl 25,000 unit In 0.45 % NaCl 1 500ml.bag @ 18 UNITS/KG/HR 36.74 mls/hr IV .[id number] [facility] Rx#: [id number] Piperacillin-Tazobactam 3 50 .375 gm In Dextrose/Water 1 50ml.bag @ 12.5 mls/hr IVPB Q8HR [facility] Rx#: [id number] Oral 0 Output: Urine 1160 1150 1000 Other: Voiding Method Urinal Urinal Urinal # Voids 1 Weight 99.8 kg 47-year-old male who is not in distress but complains of weakness fatigue and malaise HEENT: Anicteric conjunctiva are pink and moist nasal mucosa grossly intact without significant lesions, there is no thrush. Neck: The neck is supple without significant lymphadenopathy or thyromegaly. Lungs: Symmetrical air entry is noted, few expiratory wheezes are scattered but no bronchial sounds are heard. No dullness or egophony is appreciated Heart: Regular rate and rhythm with an audible S1-S2, no S3 soft S4. There is no significant murmur click or rub, PMI was nondisplaced. Abdomen: Patient complains of distention, abdomen is not tympanic, Positive bowel sounds is some mild generalized tenderness without palpable masses or organomegaly. There was no guarding or rebound. Extremities: The upper extremities have symmetrical pulses, left arm is more swollen than compared to the right. There is no significant erythema and it is not very tender. No splinter hemorrhages were noted. The lower extremities are free from significant edema. The peripheral pulses were 2+ and symmetric. Neuro: Awake alert oriented to person place and time. There are no acute new gross focal sensory motor deficits. Results CBC & Chem 7: 07/23/17 07:55 07/23/17 07:55 Labs: Abnormal Lab Results - Last 24 Hours (Table) 07/22/17 07/23/17 07/23/17 Range/Units 23:30 07:55 07:55 RBC 3.31 L (4.30-5.90) m/uL Hgb 7.8 L (13.0-17.5) gm/dL Hct 27.7 L (39.0-53.0) % MCH 23.6 L (25.0-35.0) pg MCHC 28.2 L (31.0-37.0) g/dL RDW 18.5 H (11.5-15.5) % Monocytes # 1.1 H (0-1.0) k/uL PT (9.0-12.0) sec INR (<1.2) APTT 154.8 H* (22.0-30.0) sec Creatinine 1.32 H (0.66-1.25) mg/dL Calcium 8.1 L (8.4-10.2) mg/dL Total Protein 5.3 L (6.3-8.2) g/dL Albumin 3.0 L (3.5-5.0) g/dL 07/23/17 07/23/17 07/23/17 Range/Units 07:55 07:55 16:08 RBC (4.30-5.90) m/uL Hgb (13.0-17.5) gm/dL Hct (39.0-53.0) % MCH (25.0-35.0) pg MCHC (31.0-37.0) g/dL RDW (11.5-15.5) % Monocytes # (0-1.0) k/uL PT 17.4 H (9.0-12.0) sec INR 1.9 H (<1.2) APTT 44.3 H 97.0 H* (22.0-30.0) sec Creatinine (0.66-1.25) mg/dL Calcium (8.4-10.2) mg/dL Total Protein (6.3-8.2) g/dL Albumin (3.5-5.0) g/dL Microbiology - Last 24 Hours (Table) 07/22/17 13:13 Blood Culture - Preliminary Blood No Growth after 24 hours Laboratory Results WBC 10.6 k/uL (3.8-10.6) 07/23/17 07:55 RBC 3.31 m/uL (4.30-5.90) L 07/23/17 07:55 Hgb 7.8 gm/dL (13.0-17.5) L 07/23/17 07:55 Hct 27.7 % (39.0-53.0) L 07/23/17 07:55 MCV 83.7 fL (80.0-100.0) 07/23/17 07:55 MCH 23.6 pg (25.0-35.0) L 07/23/17 07:55 MCHC 28.2 g/dL (31.0-37.0) L 07/23/17 07:55 RDW 18.5 % (11.5-15.5) H 07/23/17 07:55 Plt Count 218 k/uL (150-450) 07/23/17 07:55 Neutrophils % 57 % 07/23/17 07:55 Lymphocytes % 23 % 07/23/17 07:55 Monocytes % 10 % 07/23/17 07:55 Eosinophils % 5 % 07/23/17 07:55 Basophils % 0 % 07/23/17 07:55 Neutrophils # 6.0 k/uL (1.3-7.7) 07/23/17 07:55 Lymphocytes # 2.4 k/uL (1.0-4.8) 07/23/17 07:55 Monocytes # 1.1 k/uL (0-1.0) H 07/23/17 07:55 Eosinophils # 0.6 k/uL (0-0.7) 07/23/17 07:55 Basophils # 0.0 k/uL (0-0.2) 07/23/17 07:55 Hypochromasia Marked 07/23/17 07:55 Poikilocytosis Slight 07/23/17 07:55 Anisocytosis Slight 07/23/17 07:55 PT 17.4 sec (9.0-12.0) H 07/23/17 07:55 INR 1.9 (<1.2) H 07/23/17 07:55 APTT 97.0 sec (22.0-30.0) H* 07/23/17 16:08 Sodium 142 mmol/L (137-145) 07/23/17 07:55 Potassium 4.5 mmol/L (3.5-5.1) 07/23/17 07:55 Chloride 105 mmol/L (98-107) 07/23/17 07:55 Carbon Dioxide 29 mmol/L (22-30) 07/23/17 07:55 Anion Gap 8 mmol/L 07/23/17 07:55 BUN 16 mg/dL (9-20) 07/23/17 07:55 Creatinine 1.32 mg/dL (0.66-1.25) H 07/23/17 07:55 Est GFR (CKD-EPI)AfAm 73 (>60 ml/min/1.73 sqM) 07/23/17 07:55 Est GFR (CKD-EPI)NonAf 63 (>60 ml/min/1.73 sqM) 07/23/17 07:55 Glucose 81 mg/dL (74-99) 07/23/17 07:55 Plasma Lactic Acid [place] 1.3 mmol/L (0.7-2.0) 07/22/17 13:13 Calcium 8.1 mg/dL (8.4-10.2) L 07/23/17 07:55 Total Bilirubin 0.2 mg/dL (0.2-1.3) 07/23/17 07:55 AST 18 U/L (17-59) 07/23/17 07:55 ALT 36 U/L (21-72) 07/23/17 07:55 Alkaline Phosphatase 71 U/L (38-126) 07/23/17 07:55 Total Creatine Kinase 36 U/L (55-170) L 07/22/17 13:13 CK-MB (CK-2) 0.4 ng/mL (0.0-2.4) 07/22/17 13:13 CK-MB (CK-2) Rel Index 1.1 07/22/17 13:13 Troponin I <0.012 ng/mL (0.000-0.034) 07/22/17 13:13 Total Protein 5.3 g/dL (6.3-8.2) L 07/23/17 07:55 Albumin 3.0 g/dL (3.5-5.0) L 07/23/17 07:55 Amylase 79 U/L (30-110) 07/22/17 13:13 Lipase 75 U/L (23-300) 07/22/17 13:13 Urine Color Yellow 07/22/17 14:02 Urine Appearance Clear (Clear) 07/22/17 14:02 Urine pH 5.5 (5.0-8.0) 07/22/17 14:02 Ur Specific [place] 1.016 (1.001-1.035) 07/22/17 14:02 Urine Protein Trace (Negative) H 07/22/17 14:02 Urine Glucose (UA) Negative (Negative) 07/22/17 14:02 Urine Ketones Negative (Negative) 07/22/17 14:02 Urine Blood Negative (Negative) 07/22/17 14:02 Urine Nitrite Negative (Negative) 07/22/17 14:02 Urine Bilirubin Negative (Negative) 07/22/17 14:02 Urine Urobilinogen <2.0 mg/dL (<2.0) 07/22/17 14:02 Ur Leukocyte Esterase Negative (Negative) 07/22/17 14:02 Microbiology 07/22/17 13:13 Blood Blood Culture - Preliminary No Growth after [address] scan - abdomen: report reviewed CT scan - chest: report reviewed (Multifocal pneumonia and a significant changes of his prior organ transplant are noted) Assessment and Plan (1) Multifocal pneumonia Narrative/Plan: 47-year-old male who has a history of the multilayer organ transplant silver years ago with hospitalist earlier this year with significant pleuritic chest pain. He was treated and then later on with ongoing symptoms was taken for bronchoscopy. MRSA was positive from his sputum is received treatment with appears to be with a course of outpatient intravenous antibiotic therapy with vancomycin. Nephrology is now following and have requested no further vancomycin therapy given his worsening of his baseline chronic kidney disease. Pharmacy does have Tefloro available which can be utilized at this time for the failure of his vancomycin therapy. With his many medications he is not a Zyvox candidate and since pneumonia daptomycin would not be effective. It is not noted with recent bronchoscopy that any other pathogens were found, however I was not able to determine if pneumocystis testing was performed. If the patient fails to respond to therapy targeted against MRSA may need further bronchoscopy with specimens specifically looking for pneumocystis and other pathogens. Given his level of immunocompromise will continue with gram-negative coverage and Merrem will be utilized in conjunction with the Ceftaroline. Cultures are in process may further help direct therapy. His abdominal distention seems to be quite subjective at the moment and even better than during his last stay. The significant leukocytosis at admission seems to be improving and shall be monitored. 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 Does have mild swelling of the arm fortunately is not uncomfortable. Current Visit: Yes Status: Acute Code(s): J18.9 - PNEUMONIA, UNSPECIFIED ORGANISM SNOMED Code(s): 336801208 (2) Subtherapeutic anticoagulation Current Visit: No Status: Acute Code(s): Z51.81 - ENCOUNTER FOR THERAPEUTIC DRUG LEVEL MONITORING; Z79.01 - LONGTERM (CURRENT) USE OF ANTICOAGULANTS SNOMED Code(s): 54477624 (3) History of intestine transplant Current Visit: No Status: Acute Code(s): Z94.82 - INTESTINE TRANSPLANT STATUS SNOMED Code(s): 947397914 (4) Encounter for aftercare following multiple organ transplant Current Visit: Yes Status: Acute Code(s): Z48.288 - ENCOUNTER FOR AFTERCARE FOLLOWING MULTIPLE ORGAN TRANSPLANT SNOMED Code(s): 867935092
[2017-07-23] MEDS: CEFTAROLINE FOSAMIL 600 MG in SODIUM CHLORIDE 0.9% 250 ML IVPB SCH (23:10)
[2017-07-24] MEDS: MORPHINE SULF 5MG/10ML VL IV PRN ×4 (00:45→14:51)
[2017-07-24] MEDS: diphenhydrAMINE 50 MG/ML 1 ML VIAL IVP PRN ×3 (00:46→20:32)
[2017-07-24 01:25] LABS: Iron Saturation 2.13 (15.00-50.00)
[2017-07-24] MEDS ORDERED: VANCOMYCIN TROUGH DUE 1 EACH MISC MISCELLANE ONE (05:00)
[2017-07-24] MEDS: SODIUM CHLORIDE 0.9% 1,000 ML IV SCH ×2 (06:11→11:33)
[2017-07-24] MEDS: PANTOPRAZOLE 40 MG TABLET PO SCH ×2 (06:14→17:03)
[2017-07-24] MEDS: LIPASE 5,000/PROTEASE 17,000/AMYLASE 27,0000 PO SCH ×2 (06:16→17:03)
[2017-07-24 06:29] LABS: Calcium 8.3 mg/dL (8.4-10.2); Potassium 4.5 mmol/L (3.5-5.1)
[2017-07-24] MEDS: HEPARIN SOD,PORK IN 0.45% NACL 25,000 UNIT in 0.45% NACL 1 500ML.BAG IV SCH ×2 (08:21→11:33)
[2017-07-24] MEDS: CEFTAROLINE FOSAMIL 600 MG in SODIUM CHLORIDE 0.9% 250 ML IVPB SCH ×2 (08:31→20:22)
[2017-07-24] MEDS: GABAPENTIN 300 MG CAP PO SCH ×3 (08:32→20:34)
[2017-07-24] MEDS: METOPROLOL SUCCINATE (ER) 25 MG TAB.ER.24H PO SCH (08:33)
[2017-07-24] MEDS: FERROUS SULFATE 325 MG TAB PO SCH ×2 (08:33→20:35)
[2017-07-24] MEDS: HYDROCORTISONE 20 MG TAB PO SCH (08:33)
[2017-07-24] MEDS: FLUDROCORTISONE 0.1 MG TAB PO SCH (08:34)
[2017-07-24] MEDS: SERTRALINE 50 MG TAB PO SCH (08:34)
[2017-07-24] MEDS: TACROLIMUS 1 MG CAP PO SCH ×2 (08:34→20:34)
[2017-07-24] MEDS: QUEtiapine 25 MG TAB PO SCH ×2 (08:36→20:34)
[2017-07-24] MEDS: METHADONE 10 MG TAB PO SCH (08:39)
[2017-07-24] MEDS: CHOLECALCIFEROL 1,000 UNIT TAB PO SCH (08:40)
[2017-07-24] MEDS: PYRIDOXINE 50 MG TAB PO SCH (08:40)
[2017-07-24] MEDS: SUCRALFATE 1 GM TAB PO SCH ×2 (08:40→20:35)
[2017-07-24] MEDS: CALCIUM CARB-VIT D 250MG-125UN 1 EACH TAB PO SCH ×2 (08:40→20:35)
[2017-07-24] MEDS: MAGNESIUM OXIDE 400 MG TAB PO SCH ×2 (08:40→20:34)
[2017-07-24] MEDS: IPRATROPIUM-ALBUTEROL 3 ML NEB INHALATION SCH ×4 (08:45→20:44)
[2017-07-24] MEDS: SYMBICORT 160-4.5 MCG INHALER INHALATION SCH ×2 (08:45→20:43)
--- NOTE | 2017-07-24 09:21 | XR ---
EXAMINATION TYPE: XR abdomen 2V DATE OF EXAM: 07/24/2017 COMPARISON: 07/22/2017 HISTORY: Pain TECHNIQUE: One view abdominal series FINDINGS: There are dilated bowel loops with air-fluid levels. Calcifications in the pelvis are seen. Arthropat hy of the hips. Lung bases are clear. Large calcification in the left abdomen noted which is nonspec ific. IMPRESSION: 1. Nonspecific abdomen with air-fluid levels in dilated bowel correlate for ileus versus partial obst ruction.
[2017-07-24] MEDS: MEROPENEM 1 GM in SODIUM CHLORIDE 0.9% 100 ML IVPB SCH ×2 (10:04→23:58)
[2017-07-24] MEDS: SODIUM FERRIC GLUCONAT-SUCROSE 125 MG in SODIUM CHLORIDE 0.9% 100 ML IVPB SCH (11:33)
--- NOTE | 2017-07-24 12:34 | ECHOF ---
Referral Reason:Rule out emboli MEASUREMENTS -------- HEIGHT: 157.5 cm WEIGHT: 98.0 kg BP: 111/55 RVIDd: 2.9 cm (< 3.3) IVSd: 1.0 cm (0.6 - 1.1) LVIDd: 5.2 cm (3.9 - 5.3) LVPWd: 1.2 cm (0.6 - 1.1) IVSs: 1.5 cm LVIDs: 3.4 cm LVPWs: 1.6 cm LA Diam: 3.2 cm (2.7 - 3.8) LAESV Index (A-L): 33.89 ml/m Ao Diam: 3.4 cm (2.0 - 3.7) AV Cusp: 2.3 cm (1.5 - 2.6) MV EXCURSION: 21.150 mm (> 18.000) MV EF SLOPE: 115 mm/s (70 - 150) EPSS: 0.7 cm MV E Anthony: 1.44 m/s MV DecT: 181 ms MV A Anthony: 0.98 m/s MV E/A Ratio: 1.46 FINDINGS -------- Sinus rhythm. This was a technically adequate study. The left ventricular size is normal. There is borderline concentric left ventricular hypertrophy. Overall left ventricular systolic function is normal with, an EF between 55 - 60 %. The right ventricle is normal in size. LA is midly dilated 29-33ml/m2. The right atrium is normal in size. The aortic valve is trileaflet and appears structurally normal. Mild mitral annular calcification present. There is trace to mild mitral regurgitation. Trace tricuspid regurgitation present. Trace/mild (physiologic) pulmonic regurgitation. The aortic root size is normal. Normal inferior vena cava with normal inspiratory collapse consistent with estimated right atrial pre ssure of 5 mmHg. The inferior vena cava is mildly dilated. There is no pericardial effusion. CONCLUSIONS -------- 1. Sinus rhythm. 2. This was a technically adequate study. 3. The left ventricular size is normal. 4. There is borderline concentric left ventricular hypertrophy. 5. Overall left ventricular systolic function is normal with, an EF between 55 - 60 %. 6. The right ventricle is normal in size. 7. LA is midly dilated 29-33ml/m2. 8. The right atrium is normal in size. 9. The aortic valve is trileaflet and appears structurally normal. 10. Mild mitral annular calcification present. 11. There is trace to mild mitral regurgitation. 12. Trace tricuspid regurgitation present. 13. Trace/mild (physiologic) pulmonic regurgitation. 14. The aortic root size is normal. 15. Normal inferior vena cava with normal inspiratory collapse consistent with estimated right atrial pressure of 5 mmHg. 16. The inferior vena cava is mildly dilated. 17. There is no pericardial effusion. INDUSTRIAL PSYCHOLOGY PROFESSOR: Lorene Holly RDCS
--- NOTE | 2017-07-24 13:19 | P.PN ---
Subjective Progress Note Date: 07/24/17 47-year-old seen and examined at the bedside states noted improvement in the abdominal pain. Tolerating clear liquid diet no nausea no vomiting states passing gas and had a bowel movement this morning abdominal x-ray done this morning report reviewed dilated bowel loop with air-fluid level correlate ileus versus partial obstruction. No labs pending afebrile Objective - Vital Signs Vital signs: Vital Signs Temp 97 F L 07/24/17 08:28 Pulse 74 07/24/17 11:35 Resp 18 07/24/17 11:42 BP 112/57 07/24/17 11:35 Pulse Ox 94 L 07/24/17 11:35 Intake & Output 07/23/17 07/24/17 07/24/17 18:59 06:59 18:59 Intake Total 417.889 132.111 0 Output Total 2150 600 Balance -1732.111 132.111 -600 Weight 98.2 kg Intake: Intake, IV Titration 417.889 132.111 Amount Heparin Sod,Pork in 0.45% 367.889 132.111 NaCl 25,000 unit In 0.45 % NaCl 1 500ml.bag @ 18 UNITS/KG/HR 36.74 mls/hr IV .[id number] [facility] Rx#: [id number] Piperacillin-Tazobactam 3 50 .375 gm In Dextrose/Water 1 50ml.bag @ 12.5 mls/hr IVPB Q8HR [facility] Rx#: [id number] Oral 0 0 Output: Urine 2150 600 Other: Voiding Method Urinal Urinal Urinal # Voids 3 - Exam Physical exam 47-year-old resting in bed appears in no acute distress states abdominal pain has improved Lungs adequate air movement bilaterally Heart S1-S2 audible regular denying chest pain Abdomen soft no facial grimacing with palpitation to the abdominal wall no nausea no vomiting states had a bowel movement this morning. Passing gas. Extremities no edema - Labs CBC & Chem 7: 07/23/17 07:55 07/24/17 05:43 Labs: Abnormal Lab Results - Last 24 Hours (Table) 07/23/17 07/23/17 07/23/17 Range/Units 16:08 16:08 23:57 APTT 97.0 H* 55.1 H (22.0-30.0) sec Creatinine (0.66-1.25) mg/dL Calcium (8.4-10.2) mg/dL Iron <2 L (65-175) ug/dL TIBC 47 L (228-460) ug/dL Iron Saturation 2.13 L (15.00-50.00) 07/24/17 07/24/17 Range/Units 05:43 07:50 APTT 48.5 H (22.0-30.0) sec Creatinine 1.30 H (0.66-1.25) mg/dL Calcium 8.3 L (8.4-10.2) mg/dL Iron (65-175) ug/dL TIBC (228-460) ug/dL Iron Saturation (15.00-50.00) Microbiology - Last 24 Hours (Table) 07/22/17 13:13 Blood Culture - Preliminary Blood No Growth after 24 hours Assessment and Plan Assessment: Impression History of multi-organ transplant stomach, pancreas,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 done at the [facility] History of obstructive sleep apnea COPD no evidence of an exacerbation History of Gastroparesis History of paroxysmal atrial fibrillation on anticoagulation Coumadin Left arm positive for DVT subclavian vein extending into the axillary present on admission Present on admission acute on chronic abdominal pain with abdominal distention unclear etiology Plan No evidence of an acute surgical abdomen at this time Continue with the recommendations by medicine defer to Home meds as appropriate start clear liquids advance as tolerated IV fluid for hydration DVT and GI prophylaxis We'll follow with you Repeat abdominal x-ray in the morning note dictated for Dr. jeremías blount The above impression and plan of care have been discussed and directed by signing physician. Summer Quintana nurse practitioner acting as scribe for signing physician.
--- NOTE | 2017-07-24 15:09 | P.PN ---
Subjective Progress Note Date: 07/24/17 Principal diagnosis: Abdominal pain suspect gastroparesis. Acute venous thrombosis in the left upper extremity. Multifocal pneumonia This is a very pleasant 47-year-old gentleman who follows with Dr. Zhao as his primary care physician. 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 He does follow closely with Dr. Daniels in our office as well. He had recently undergone bronchoscopy with BAL and May 2017 and was found to have an MRSA infection and was treated appropriately. 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 The patient presented here yesterday to the emergency room with multiple complaints. That mostly being of abdominal pain located in the upper abdomen over the last 2-3 days. Also had some complaints of shortness of breath, cough and congestion. He was treated with antibiotics in the outpatient setting for pleuritic type chest pain. That pain has subsided however he does remain dyspneic on minimal exertion. He is maintaining good O2 saturations in the 90s on room air. Initial white count 17.5. Current white count 10.6. Hemoglobin 7.8. Presenting INR 1.7. Current INR 1.9. The patient was found to have left upper extremity venous thrombosis involving the subclavian vein extending to the axilla and brachiocephalic vein. There is also noted thrombosis in the internal jugular vein on the left. He is currently on a heparin drip. Computed tomography scan of the chest revealed new multifocal reticular nodular opacities that were not present on the previous exam in April 2017. Most likely reflecting multifocal pneumonia in this immunocompromised patient. He has been initiated on vancomycin, meropenem and Zosyn. He is continued on Bactrim on Saturday. The patient is seen again today in 08/07/2017 in follow-up on the selective care unit. He is awake and alert in no acute distress. He has been up ambulating in the room and in the hallway without any significant shortness of breath. He is maintaining good O2 saturations in the 90s on room air. His been afebrile. Hemodynamically stable. His abdominal discomfort has subsided. He is tolerating a liquid diet. Objective - Vital Signs Vital signs: Vital Signs Temp 97 F L 07/24/17 08:28 Pulse 74 07/24/17 11:35 Resp 18 07/24/17 11:42 BP 112/57 07/24/17 11:35 Pulse Ox 94 L 07/24/17 11:35 Intake & Output 07/23/17 07/24/17 07/24/17 18:59 06:59 18:59 Intake Total 417.889 132.111 0 Output Total 2150 600 Balance -1732.111 132.111 -600 Weight 98.2 kg Intake: Intake, IV Titration 417.889 132.111 Amount Heparin Sod,Pork in 0.45% 367.889 132.111 NaCl 25,000 unit In 0.45 % NaCl 1 500ml.bag @ 18 UNITS/KG/HR 36.74 mls/hr IV .[id number] [facility] Rx#: [id number] Piperacillin-Tazobactam 3 50 .375 gm In Dextrose/Water 1 50ml.bag @ 12.5 mls/hr IVPB Q8HR [facility] Rx#: [id number] Oral 0 0 Output: Urine 2150 600 Other: Voiding Method Urinal Urinal Urinal # Voids 3 - Exam GENERAL EXAM: Pale, weak. Alert, fairly comfortable in no apparent distress. HEAD: Normocephalic. EYES: Normal reaction of pupils, equal size. NOSE: Clear with pink turbinates. THROAT: No erythema or exudates. NECK: No masses, no JVD. CHEST: No chest wall deformity. LUNGS: Equal air entry with bilateral scattered rhonchi. Diminished.. CVS: S1 and S2 normal with no audible murmur, regular rhythm. ABDOMEN: Slightly distended, normal bowel sounds, no guarding or rigidity. SPINE: No scoliosis or deformity SKIN: No rashes CENTRAL NERVOUS SYSTEM: No focal deficits, tone is normal in all 4 extremities. EXTREMITIES: Left upper extremity edema. No clubbing, no cyanosis. Peripheral pulses are intact. - Labs CBC & Chem 7: 07/23/17 07:55 07/24/17 05:43 Labs: Abnormal Lab Results - Last 24 Hours (Table) 07/23/17 07/23/17 07/23/17 Range/Units 16:08 16:08 23:57 APTT 97.0 H* 55.1 H (22.0-30.0) sec Creatinine (0.66-1.25) mg/dL Calcium (8.4-10.2) mg/dL Iron <2 L (65-175) ug/dL TIBC 47 L (228-460) ug/dL Iron Saturation 2.13 L (15.00-50.00) 07/24/17 07/24/17 Range/Units 05:43 07:50 APTT 48.5 H (22.0-30.0) sec Creatinine 1.30 H (0.66-1.25) mg/dL Calcium 8.3 L (8.4-10.2) mg/dL Iron (65-175) ug/dL TIBC (228-460) ug/dL Iron Saturation (15.00-50.00) Microbiology - Last 24 Hours (Table) 07/22/17 13:13 Blood Culture - Preliminary Blood No Growth after 24 hours Assessment and Plan Assessment: Assessment #1 Abdominal pain of unclear etiology. CT angiogram of the abdomen revealed the proximal sigmoid has become even more dilated than the prior exam with mild circumferential wall thickening extending to the remainder of the sigmoid. Questionable findings of either trapped dependent air along the posterior sigmoid or mild colonic pneumatosis. Surgical services planning no interventions. The patient is tolerating a liquid diet today. Abdominal x-ray today reveals evidence of ileus versus partial obstruction. #2 Acute venous thrombosis involving the subclavian vein extending in the axilla and brachiocephalic vein on the left upper extremity. Internal jugular vein also appears to be thrombosed. The patient has been on warfarin in the outpatient setting, presenting subtherapeutic at 1.7 INR. Remains on heparin drip. #3 Dyspnea secondary to new multifocal reticulonodular opacities reflecting possible multifocal pneumonia in an immunocompromised patient. There is underlying pulmonary arterial hypertension. Currently on ceftaroline, meropenem and Bactrim. #4 Multivisceral organ transplantation done at the [facility] including stomach small bowel and pancreas. Splenectomy. #5 Chronic pancreatitis, requiring insertion of a pancreatic stent and the patient is currently up ectatic enzyme supplements #6 Chronic immunosuppression maintain on a combination of Prograf #7 Chronic adrenal insufficiency maintained on Cortef #8 Previous hospitalization for GI bleed #9 Gastroparesis #10 Chronic renal failure #11 Chronic anemia secondary to renal failure #12 Previous exposure to MRSA most recently noted in bronchial washings from 10/2017. 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 Plan: The patient was seen and evaluated by Dr. Duarte. We'll continue with DuoNeb inhalations, Symbicort, Cortef. The patient is covered with ceftaroline and meropenem. He is continued on Bactrim Saturday. Continue with heparin drip for now regarding the thrombosis. We'll repeat a chest x-ray in the a.m. We will continue to follow and make further recommendations based on his clinical status. I, the cosigning physician, performed a history & physical examination of the patient. Lungs sounds have few scattered rhonchi. Maintaining good O2 saturations in the 90s on room air. I discussed the assessment and plan of care with my nurse practitioner, Zenobia Haney. I attest to the above note as dictated by her.
--- NOTE | 2017-07-24 16:57 | PN ---
PROGRESS NOTE Patient is seen for followup for acute kidney injury on top of chronic kidney disease. Patient's renal function is stable. Creatinine staying at 1.3 mg/dL. He was at 1.4 on initial admission. REVIEW OF LABS: Serum creatinine at 1.18 on 05/20/2017, but mostly staying above 1.4. The patient was started on IV fluids. He has had a CT with IV contrast. Currently, he has good urine output. He was maintained on vancomycin, which is now discontinued. Patient has multivisceral organ transplant including the small intestine, stomach, and pancreas and remains on Prograf. He also has adrenal insufficiency for which he is maintained on hydrocortisone. PHYSICAL EXAMINATION: On examination today, blood pressure is 112/57, heart rate 74 per minute. He is afebrile. Examination of the heart S1, S2. Examination of the lungs bilateral breath sounds are heard. Abdomen is soft, nontender. Examination of lower extremities shows no evidence of edema. [employer] exam is grossly intact. Patient moving all 4 extremities. LABS: Show sodium 143, potassium 4.5, BUN 14, serum creatinine 1.3. Hemoglobin was 7.8 g/dL yesterday. ASSESSMENT: 1. Acute kidney injury, mostly prerenal currently maintained on IV fluids. Patient did get IV contrast for CT of the abdomen. He is currently nonoliguric with good urine output and creatinine staying at 1.3 mg/dL. 2. Chronic kidney disease stage 3 with previous creatinine lowest at 1.18. The etiology is likely nephrosclerosis. The previous UA showed no evidence of proteinuria. The patient is not on a inhibitor for immunosuppression and he will need monitoring of renal function as outpatient. 3. Abdominal pain with complex history of multivisceral organ transplant at [facility], being followed by surgery. Abdominal pain has improved. 4. Severe iron deficiency. Will start IV iron. PLAN: Continue IV fluids. Continue with Bactrim. Start IV iron. Repeat labs in a.m. Recommend outpatient followup of renal function. MMODL / IJN: [id number] /
[2017-07-24] MEDS: NICOTINE 14MG/24HR PATCH TRANSDERM SCH (16:58)
[2017-07-24] MEDS: SULFAMETHOX-TMP 800-160MG 1 EACH TAB PO SCH (17:03)
[2017-07-24] MEDS: MORPHINE SULFATE 4MG/4ML SYRG IV PRN (20:23)
--- NOTE | 2017-07-24 20:33 | PN ---
PROGRESS NOTE DATE OF SERVICE: 07/24/17 PRESENTING COMPLAINT: Abdominal pain, short of breath. INTERVAL HISTORY: This patient with a rather complicated medical history including multivisceral transplant, presented with pneumonia, abdominal distention is actually better. Also found to have left subclavian vein extending proximally for which patient is on IV heparin. The patient's breathing is actually getting better. Did cough up a very small amount. Did have a bowel movement. Abdomen is less distended. REVIEW OF SYSTEMS: Done for constitutional, cardiovascular, GI, pulmonary, relevant findings as above. CURRENT MEDICATIONS: Include DuoNeb, IV ceftaroline, IV iron, IV heparin, IV meropenem. PHYSICAL EXAMINATION: Temperature 97, pulse 72, respiration 16, blood pressure 106/59, pulse ox 93% on room air. General appearance: Lying in bed more comfortable today. Eyes: Pupils equal. Conjunctivae normal. HEENT external appearance of nose and ears normal. Oral cavity normal. Neck JVD not raised. Mass not palpable. Respiratory effort increased. Lungs decreased breath sounds. Cardiovascular 1st and 2nd sounds normal. Minimal edema. ABDOMEN: Soft, nontender. Liver and spleen not palpable, less distended today. PSYCHIATRY: Alert and oriented x3. Mood and affect normal. Extremities: Slight swelling of the left upper extremity. INVESTIGATIONS: Potassium 4.5, BUN 14, creatinine 1.30. Iron studies are low. The patient's Doppler of the left upper extremity showed venous thrombosis involving the subclavian vein extending into the axillary and brachiocephalic vein. Internal jugular vein also appears to be thrombosed. ASSESSMENT: 1. Acute multifocal bilateral multi segmental pneumonia suspect gram-negative organism in a chronically immunosuppressed patient. 2. Chronic obstructive pulmonary disease in an ex-smoker. 3. Four organ transplant in 2002 including small-bowel pancreas, duodenum, stomach being followed at [facility]. 4. Gastroesophageal reflux disease. 5. Chronic gastroparesis. 6. Chronic mesenteric vein thrombosis for which patient had been on Coumadin. 7. Chronic kidney disease, stage IIIB. 8. Immunosuppressed state. 9. Possibly acute deep vein thrombosis of the left subclavian vein extending into the axillary and brachiocephalic vein/internal jugular vein. PLAN: Continue with IV antibiotics, IV heparin. Patient also getting IV iron. The patient is already being followed by Infectious Disease and General surgery. We advanced the patient to a clear liquid diet. Nephrology. Will also have vascular, Dr. Shipley see the patient. At this point, choices are limited it seems. Continue on IV heparin. Clinically patient looks better. MMODL / IJN: [id number] /
[2017-07-24] MEDS: HYDROCORTISONE 10 MG TAB PO SCH (20:35)
[2017-07-24] MEDS: traZODone HCL 100 MG TAB PO SCH (20:37)
[2017-07-24] MEDS: METHADONE 5 MG TAB PO SCH (20:38)
--- NOTE | 2017-07-24 21:23 | P.PN ---
Subjective Progress Note Date: 07/24/17 Principal diagnosis: abd pain 47-year-old male presents to emergency center feeling poorly with a several-day history of increasing abdominal bloating that was causing increasing discomfort. 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 He done modestly well over time with what appears to be limited rejection issues, but remains immunosuppressed overtime. The patient also relates over the last several days he's had some increasing difficulties with some cough and sputum production. The patient was hospitalized in April which point in time he had pneumonia and severe pleuritic chest pain that is improved after his hospitalization. He was doing relatively well until the onset of the current symptoms. He did relate these having cough without much sputum production. He is not having hemoptysis. He is not having the severe pleuritic chest pain like he had earlier in the year. He's had significant abdominal bloating that has been problematic as of late, his transplant surgeon has related that he has gained some weight and this has had some impact on the organs and seems to be causing some of his bloating and discomfort. He did have difficulties and required pancreatic stent in the past but seems to have normal amylase and lipase at this time. He is denying high- grade fevers chills or rigors but does feel quite poorly overall. 07/24/2017 reveals the patient be feeling somewhat better and walking in the halls. He continues to have some abdominal pain. Seems to be less short of breath and denies new acute pains. Objective - Vital Signs Vital signs: Vital Signs Temp 97.4 F L 07/24/17 17:00 Pulse 72 07/24/17 17:00 Resp 16 07/24/17 17:00 BP 120/63 07/24/17 17:00 Pulse Ox 94 L 07/24/17 17:00 Intake & Output 07/24/17 07/24/17 07/25/17 06:59 18:59 06:59 Intake Total 206.602 8930 Output Total 600 Balance 132.111 990 Weight 98.2 kg Intake: Intake, IV Titration 929.547 9807 Amount Ceftaroline Fosamil 600 250 mg In Sodium Chloride 0.9 % 250 ml @ 250 mls/hr IVPB Q12H [facility] Rx#: [id number] Heparin Sod,Pork in 0.45% 132.111 NaCl 25,000 unit In 0.45 % NaCl 1 500ml.bag @ 18 UNITS/KG/HR 36.74 mls/hr IV .[id number] [facility] Rx#: [id number] Meropenem 1 gm In Sodium 100 Chloride 0.9% 100 ml @ 100 mls/hr IVPB Q12HR [facility] Rx#:[id number] Sodium Chloride 0.9% 1, 600 000 ml @ 75 mls/hr IV . [id number] [facility] Rx#:[id number] Sodium Ferric Gluconat- 100 Sucrose 125 mg In Sodium Chloride 0.9% 100 ml @ 100 mls/hr IVPB DAILY [facility] Rx#:[id number] Oral 540 Output: Urine 600 Other: Voiding Method Urinal Urinal # Voids 3 1,600 - Exam 47-year-old male who is not in distress but complains of weakness fatigue and malaise HEENT: Anicteric conjunctiva are pink and moist nasal mucosa grossly intact without significant lesions, there is no thrush. Neck: The neck is supple without significant lymphadenopathy or thyromegaly. Lungs: Symmetrical air entry is noted, few expiratory wheezes are scattered but no bronchial sounds are heard. No dullness or egophony is appreciated Heart: Regular rate and rhythm with an audible S1-S2, no S3 soft S4. There is no significant murmur click or rub, PMI was nondisplaced. Abdomen: Patient complains of distention, abdomen is not tympanic, Positive bowel sounds is some mild generalized tenderness without palpable masses or organomegaly. There was no guarding or rebound. Extremities: The upper extremities have symmetrical pulses, left arm is more swollen than compared to the right. There is no significant erythema and it is not very tender. No splinter hemorrhages were noted. The lower extremities are free from significant edema. The peripheral pulses were 2+ and symmetric. Neuro: Awake alert oriented to person place and time. There are no acute new gross focal sensory motor deficits. - Labs CBC & Chem 7: 07/23/17 07:55 07/24/17 05:43 Labs: Abnormal Lab Results - Last 24 Hours (Table) 07/23/17 07/23/17 07/24/17 Range/Units 16:08 23:57 05:43 APTT 55.1 H (22.0-30.0) sec Creatinine 1.30 H (0.66-1.25) mg/dL Calcium 8.3 L (8.4-10.2) mg/dL Iron <2 L (65-175) ug/dL TIBC 47 L (228-460) ug/dL Iron Saturation 2.13 L (15.00-50.00) 07/24/17 Range/Units 07:50 APTT 48.5 H (22.0-30.0) sec Creatinine (0.66-1.25) mg/dL Calcium (8.4-10.2) mg/dL Iron (65-175) ug/dL TIBC (228-460) ug/dL Iron Saturation (15.00-50.00) Microbiology - Last 24 Hours (Table) 07/22/17 13:13 Blood Culture - Preliminary Blood No Growth after 48 hours Laboratory Results WBC 10.6 k/uL (3.8-10.6) 07/23/17 07:55 RBC 3.31 m/uL (4.30-5.90) L 07/23/17 07:55 Hgb 7.8 gm/dL (13.0-17.5) L 07/23/17 07:55 Hct 27.7 % (39.0-53.0) L 07/23/17 07:55 MCV 83.7 fL (80.0-100.0) 07/23/17 07:55 MCH 23.6 pg (25.0-35.0) L 07/23/17 07:55 MCHC 28.2 g/dL (31.0-37.0) L 07/23/17 07:55 RDW 18.5 % (11.5-15.5) H 07/23/17 07:55 Plt Count 218 k/uL (150-450) 07/23/17 07:55 Neutrophils % 57 % 07/23/17 07:55 Lymphocytes % 23 % 07/23/17 07:55 Monocytes % 10 % 07/23/17 07:55 Eosinophils % 5 % 07/23/17 07:55 Basophils % 0 % 07/23/17 07:55 Neutrophils # 6.0 k/uL (1.3-7.7) 07/23/17 07:55 Lymphocytes # 2.4 k/uL (1.0-4.8) 07/23/17 07:55 Monocytes # 1.1 k/uL (0-1.0) H 07/23/17 07:55 Eosinophils # 0.6 k/uL (0-0.7) 07/23/17 07:55 Basophils # 0.0 k/uL (0-0.2) 07/23/17 07:55 Hypochromasia Marked 07/23/17 07:55 Poikilocytosis Slight 07/23/17 07:55 Anisocytosis Slight 07/23/17 07:55 PT 17.4 sec (9.0-12.0) H 07/23/17 07:55 INR 1.9 (<1.2) H 07/23/17 07:55 APTT 48.5 sec (22.0-30.0) H 07/24/17 07:50 Sodium 143 mmol/L (137-145) 07/24/17 05:43 Potassium 4.5 mmol/L (3.5-5.1) 07/24/17 05:43 Chloride 107 mmol/L (98-107) 07/24/17 05:43 Carbon Dioxide 28 mmol/L (22-30) 07/24/17 05:43 Anion Gap 8 mmol/L 07/24/17 05:43 BUN 14 mg/dL (9-20) 07/24/17 05:43 Creatinine 1.30 mg/dL (0.66-1.25) H 07/24/17 05:43 Est GFR (CKD-EPI)AfAm 74 (>60 ml/min/1.73 sqM) 07/24/17 05:43 Est GFR (CKD-EPI)NonAf 64 (>60 ml/min/1.73 sqM) 07/24/17 05:43 Glucose 88 mg/dL (74-99) 07/24/17 05:43 Plasma Lactic Acid Barrie 1.3 mmol/L (0.7-2.0) 07/22/17 13:13 Calcium 8.3 mg/dL (8.4-10.2) L 07/24/17 05:43 Iron <2 ug/dL (65-175) L 07/23/17 16:08 TIBC 47 ug/dL (228-460) L 07/23/17 16:08 Iron Saturation 2.13 (15.00-50.00) L 07/23/17 16:08 Total Bilirubin 0.2 mg/dL (0.2-1.3) 07/23/17 07:55 AST 18 U/L (17-59) 07/23/17 07:55 ALT 36 U/L (21-72) 07/23/17 07:55 Alkaline Phosphatase 71 U/L (38-126) 07/23/17 07:55 Total Creatine Kinase 36 U/L (55-170) L 07/22/17 13:13 CK-MB (CK-2) 0.4 ng/mL (0.0-2.4) 07/22/17 13:13 CK-MB (CK-2) Rel Index 1.1 07/22/17 13:13 Troponin I <0.012 ng/mL (0.000-0.034) 07/22/17 13:13 Total Protein 5.3 g/dL (6.3-8.2) L 07/23/17 07:55 Albumin 3.0 g/dL (3.5-5.0) L 07/23/17 07:55 Amylase 79 U/L (30-110) 07/22/17 13:13 Lipase 75 U/L (23-300) 07/22/17 13:13 Urine Color Yellow 07/22/17 14:02 Urine Appearance Clear (Clear) 07/22/17 14:02 Urine pH 5.5 (5.0-8.0) 07/22/17 14:02 Ur Specific Douglas 1.016 (1.001-1.035) 07/22/17 14:02 Urine Protein Trace (Negative) H 07/22/17 14:02 Urine Glucose (UA) Negative (Negative) 07/22/17 14:02 Urine Ketones Negative (Negative) 07/22/17 14:02 Urine Blood Negative (Negative) 07/22/17 14:02 Urine Nitrite Negative (Negative) 07/22/17 14:02 Urine Bilirubin Negative (Negative) 07/22/17 14:02 Urine Urobilinogen <2.0 mg/dL (<2.0) 07/22/17 14:02 Ur Leukocyte Esterase Negative (Negative) 07/22/17 14:02 Microbiology 07/22/17 13:13 Blood Blood Culture - Preliminary No Growth after 48 hours Assessment and Plan (1) Multifocal pneumonia Narrative/Plan: 47-year-old male who has a history of the multilayer organ transplant silver years ago with hospitalist earlier this year with significant pleuritic chest pain. He was treated and then later on with ongoing symptoms was taken for bronchoscopy. MRSA was positive from his sputum is received treatment with appears to be with a course of outpatient intravenous antibiotic therapy with vancomycin. Nephrology is now following and have requested no further vancomycin therapy given his worsening of his baseline chronic kidney disease. Pharmacy does have Tefloro available which can be utilized at this time for the failure of his vancomycin therapy. With his many medications he is not a Zyvox candidate and since pneumonia daptomycin would not be effective. It is not noted with recent bronchoscopy that any other pathogens were found, however I was not able to determine if pneumocystis testing was performed. If the patient fails to respond to therapy targeted against MRSA may need further bronchoscopy with specimens specifically looking for pneumocystis and other pathogens. Given his level of immunocompromise will continue with gram-negative coverage and Merrem will be utilized in conjunction with the Ceftaroline. Cultures are in process may further help direct therapy. His abdominal distention seems to be quite subjective at the moment and even better than during his last stay. The significant leukocytosis at admission seems to be improving and shall be monitored. 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 Does have mild swelling of the arm fortunately is not uncomfortable. 07/24/2017 the patient is feeling Some what better and is tolerating the antibiotic therapy well of Merrem and Ceftaroline. Cultures are negative so far.leukocytosis is improving and no further fever is noted.Patient is being followed by multiple consultants and seems to be having some improvement. Creatinine is down to 1.30 also. We'll plan continue current antibiotic therapy and will have to determine best possible option for antibiotics at discharge given his multiple medications including his immunosuppressive regimen. Current Visit: Yes Status: Acute Code(s): J18.9 - PNEUMONIA, UNSPECIFIED ORGANISM SNOMED Code(s): 101294575 (2) Subtherapeutic anticoagulation Current Visit: No Status: Acute Code(s): Z51.81 - ENCOUNTER FOR THERAPEUTIC DRUG LEVEL MONITORING; Z79.01 - INTERNATIONAL [employer] SPECIALIST (CURRENT) USE OF ANTICOAGULANTS SNOMED Code(s): 02218554 (3) History of intestine transplant Current Visit: No Status: Acute Code(s): Z94.82 - INTESTINE TRANSPLANT STATUS SNOMED Code(s): 132349068 (4) Encounter for aftercare following multiple organ transplant Current Visit: Yes Status: Acute Code(s): Z48.288 - ENCOUNTER FOR AFTERCARE FOLLOWING MULTIPLE ORGAN TRANSPLANT SNOMED Code(s): 087629789
[2017-07-25] MEDS: MORPHINE SULFATE 4MG/4ML SYRG IV PRN ×3 (00:49→09:48)
[2017-07-25 06:39] LABS: Calcium 8.5 mg/dL (8.4-10.2); Potassium 4.2 mmol/L (3.5-5.1)
[2017-07-25] MEDS: CEFTAROLINE FOSAMIL 600 MG in SODIUM CHLORIDE 0.9% 250 ML IVPB SCH ×2 (06:56→18:01)
[2017-07-25] MEDS: HEPARIN SOD,PORK IN 0.45% NACL 25,000 UNIT in 0.45% NACL 1 500ML.BAG IV SCH ×2 (06:57→20:02)
[2017-07-25] MEDS: SODIUM CHLORIDE 0.9% 1,000 ML IV SCH ×2 (06:58→22:04)
[2017-07-25] MEDS: PANTOPRAZOLE 40 MG TABLET PO SCH ×2 (08:43→17:58)
[2017-07-25] MEDS: LIPASE 5,000/PROTEASE 17,000/AMYLASE 27,0000 PO SCH ×2 (08:43→17:58)
--- NOTE | 2017-07-25 08:47 | P.PN ---
Subjective Patient is seen in follow-up for acute kidney injury on chronic kidney disease. Creatinine is down to 1.26 today. Patient does have chronic kidney disease stage III secondary to nephrosclerosis and also due to long-term calcineurin inhibitor use with baseline creatinine in the range of 1.2-1.3. Patient underwent multilevel several organ transplant due to congenital abnormalities at [facility] several years ago. Patient presented with abdominal discomfort. He is currently on clear liquid diet. Overall the pain is improved. He is also being treated for pneumonia. Vital signs are stable. General: The patient appeared well nourished and normally developed. HEENT: Head exam is unremarkable. Neck is without jugular venous distension. LUNGS: Lungs are clear to auscultation and percussion. Breath sounds decreased. HEART: Rate and Rhythm are regular. First and second heart sounds normal. No murmurs, rubs or gallops. ABDOMEN: Abdominal exam reveals normal bowel sounds. Non-tender and non- distended. No evidence of peritonitis. EXTREMITITES: No clubbing, cyanosis, or edema. Objective - Vital Signs Vital signs: Vital Signs Temp 97.5 F L 07/25/17 04:00 Pulse 70 07/25/17 04:00 Resp 18 07/25/17 04:00 BP 104/56 07/25/17 04:00 Pulse Ox 92 L 07/25/17 04:00 Intake & Output 07/24/17 07/25/17 07/25/17 18:59 06:59 18:59 Intake Total 1590 1750 Output Total 600 1200 900 Balance 990 550 -900 Weight 98.7 kg Intake: Intake, IV Titration 1050 1750 Amount Ceftaroline Fosamil 600 250 250 mg In Sodium Chloride 0.9 % 250 ml @ 250 mls/hr IVPB Q12H [facility] Rx#: [id number] Heparin Sod,Pork in 0.45% 500 NaCl 25,000 unit In 0.45 % NaCl 1 500ml.bag @ 18 UNITS/KG/HR 36.74 mls/hr IV .[id number] [facility] Rx#: [id number] Meropenem 1 gm In Sodium 100 100 Chloride 0.9% 100 ml @ 100 mls/hr IVPB Q12HR [facility] Rx#:[id number] Sodium Chloride 0.9% 1, 600 900 000 ml @ 75 mls/hr IV . [id number] [facility] Rx#:[id number] Sodium Ferric Gluconat- 100 Sucrose 125 mg In Sodium Chloride 0.9% 100 ml @ 100 mls/hr IVPB DAILY [facility] Rx#:[id number] Oral 540 Output: Urine 600 1200 900 Other: Voiding Method Urinal Urinal # Voids 1,600 2 - Labs CBC & Chem 7: 07/23/17 07:55 07/25/17 06:03 Labs: Abnormal Lab Results - Last 24 Hours (Table) 07/25/17 07/25/17 Range/Units 06:03 06:03 APTT 51.8 H (22.0-30.0) sec Chloride 109 H (98-107) mmol/L Creatinine 1.26 H (0.66-1.25) mg/dL Microbiology - Last 24 Hours (Table) 07/22/17 13:13 Blood Culture - Preliminary Blood No Growth after 48 hours Assessment and Plan Plan: Assessment: #1. Nonoliguric acute kidney injury mostly prerenal improved with IV hydration. Creatinine around 1.26 today. Urinalysis is quite benign. Patient did receive IV contrast on July 22. #2. Chronic kidney disease stage III with baseline creatinine in the range of 1.2-1.3 secondary to nephrosclerosis and long-term calcineurin inhibitor use. #3. Abdominal pain with history of multivisceral organ transplant that he was stiff [place] several years ago. Overall the pain is improved. He is now tolerating a clear liquid diet. #4. Pneumonia maintain antibiotics. Infectious disease following. #5. Anemia. Severe iron deficiency noted. #6. Possible acute left subclavian thromboses maintained on anticoagulation. Plan: Continue normal saline at 75 mL an hour. Ferrlicit 125 mg IV daily for 3 days. Second dose today. Advance diet per surgical recommendations. Continue to monitor renal function and urine output. Continue with Prograf and Bactrim for now.
--- NOTE | 2017-07-25 08:56 | XR ---
EXAMINATION TYPE: XR abdomen 2V DATE OF EXAM: 07/25/2017 COMPARISON: 07/24/2017 HISTORY: Pain TECHNIQUE: One view abdominal series FINDINGS: The osseous structures are intact. The bowel gas pattern is nonspecific. There are prominent bowel l oops in the abdomen. Predominantly confined to the right side of the abdomen. Vascular calcifications are seen. Arthropathy of the hips. Air-fluid level noted. IMPRESSION: 1. Persistent dilated bowel loops with air-fluid level. Differential diagnosis would include an ileus or partial obstruction. Could not exclude a small amount of free intraperitoneal air. Recommend repe at CT scan. Report called to patient's nurse.
[2017-07-25] MEDS: IPRATROPIUM-ALBUTEROL 3 ML NEB INHALATION SCH ×3 (08:57→20:39)
[2017-07-25] MEDS: SYMBICORT 160-4.5 MCG INHALER INHALATION SCH ×2 (08:57→20:39)
--- NOTE | 2017-07-25 08:58 | XR ---
EXAMINATION TYPE: XR chest 1V portable DATE OF EXAM: 07/25/2017 COMPARISON: 07/22/2017 HISTORY: Shortness of breath TECHNIQUE: Single frontal view of the chest is obtained. FINDINGS: The heart is enlarged and there is subsegmental consolidation involving the left upper lob e and right lower lobe. Underlying interstitial lung disease suspected with no sizable pleural effusi on or pneumothorax. Apical pleural thickening noted. IMPRESSION: 1. Correlate for COPD. 2. Multifocal areas of consolidation correlate for pneumonia.
[2017-07-25] MEDS: diphenhydrAMINE 50 MG/ML 1 ML VIAL IVP PRN ×2 (09:49→20:04)
[2017-07-25] MEDS: CALCIUM CARB-VIT D 250MG-125UN 1 EACH TAB PO SCH ×2 (09:50→19:52)
[2017-07-25] MEDS: FERROUS SULFATE 325 MG TAB PO SCH ×2 (09:50→19:52)
[2017-07-25] MEDS: MAGNESIUM OXIDE 400 MG TAB PO SCH ×2 (09:51→19:51)
[2017-07-25] MEDS: QUEtiapine 25 MG TAB PO SCH ×2 (09:51→19:52)
[2017-07-25] MEDS: TACROLIMUS 1 MG CAP PO SCH ×2 (09:51→22:05)
[2017-07-25] MEDS: SUCRALFATE 1 GM TAB PO SCH ×2 (09:52→19:51)
[2017-07-25] MEDS: HYDROCORTISONE 20 MG TAB PO SCH (09:52)
[2017-07-25] MEDS: METOPROLOL SUCCINATE (ER) 25 MG TAB.ER.24H PO SCH (09:52)
[2017-07-25] MEDS: PYRIDOXINE 50 MG TAB PO SCH (09:52)
[2017-07-25] MEDS: GABAPENTIN 300 MG CAP PO SCH ×3 (09:52→22:05)
[2017-07-25] MEDS: SERTRALINE 50 MG TAB PO SCH (09:53)
[2017-07-25] MEDS: FLUDROCORTISONE 0.1 MG TAB PO SCH (09:53)
[2017-07-25] MEDS: CHOLECALCIFEROL 1,000 UNIT TAB PO SCH ×2 (09:54→10:01)
[2017-07-25] MEDS: MEROPENEM 1 GM in SODIUM CHLORIDE 0.9% 100 ML IVPB SCH ×2 (10:03→20:04)
[2017-07-25] MEDS: METHADONE 10 MG TAB PO SCH (10:14)
--- NOTE | 2017-07-25 10:15 | CONS ---
CONSULTATION REASON FOR CONSULTATION: Deep vein thrombosis. The subclavian vein break is cephalic vein and every vein including possible internal jugular vein. This is a 47-year-old gentleman who has been admitted to the hospital with abdominal pain. Patient had a transplant surgery done including the small bowel, pancreas, duodenum, stomach at [facility]. He also had a valve surgery for the heart in the past. Patient came with some abdominal pain and discomfort, seen by General Surgery. Patient also has a longstanding history of swelling of the left arm. According to the patient, he does not remember clearly that he was told that he had some kind of clot in his left arm area, but he is not sure, but he definitely has a chronic swelling of the left upper arm. Patient is under care of Ras Zhao, who has all his history. PAST MEDICAL HISTORY: Atrial fibrillation, COPD, history of chronic anemia, history of chronic kidney disease. PHYSICAL EXAMINATION: Patient was seen in his room. His vital signs are stable. NECK: Supple, trachea central. CHEST: Clear to auscultation. ABDOMEN: Soft. Patient has a has chronic swelling of the left extremity and also right arm has no swelling noted. His radial and brachial artery pulses are present. There is no evidence of any vascular compromise noted other than swelling of the left upper arm. PLAN: Patient is on heparin. We will review the ultrasound with Radiology to see if this is a fresh clot or old clot and we will get the report from Dr. Ras Zhao about his past history of blood clot in his left arm. Will follow with you. Thank you very much and I will discuss this case with Dr. Swanson. MMSILVIAL / CRISTELAN: [id number] /
[2017-07-25 10:43] VITALS: BMI 27.9
[2017-07-25] MEDS: SODIUM FERRIC GLUCONAT-SUCROSE 125 MG in SODIUM CHLORIDE 0.9% 100 ML IVPB SCH (11:38)
--- NOTE | 2017-07-25 12:31 | CT ---
EXAMINATION TYPE: CT abdomen pelvis wo con DATE OF EXAM: 07/25/2017 COMPARISON: 07/22/2017 HISTORY: Pain, history of stomach, small bowel and pancreas transplant CT DLP: 844.7 mGycm Automated exposure control for dose reduction was used. TECHNIQUE: Helical acquisition of images was performed from the lung bases through the pelvis. FINDINGS: Lack of intravenous and oral contrast limit evaluation of both the hollow and solid viscera . LUNG BASES: There is improved degree of reticular opacity seen on the recent CT dated 07/22/2017. Right middle lobe pulmonary nodule measuring 4 mm remains on image 4. Patchy opacity also remains within t he left lower lobe also on image 4. LIVER/GB: Gallbladder surgically absent. Unchanged extrahepatic biliary ductal dilatation. Hepatic pa renchyma is homogeneous and the liver is elongated extending into the left upper quadrant. Dilation of the main portal vein is again identified measuring up to 2.3 cm. Extensive varices are seen in the region of the gastrohepatic ligament. PANCREAS: Prior pancreatic resection is seen of the pancreatic tail. SPLEEN: Surgically absent ADRENALS: No significant abnormality is seen. KIDNEYS: The previously identified hypoattenuating lesions within the kidneys are better seen on the prior examination given intravenous contrast. These were subcentimeter and too small to accurately ch aracterize. The right ureter is again noted to be patulous without hydronephrosis. FREE AIR: No free air is visualized ADENOPATHY: None visualized URINARY BLADDER: No significant abnormality is seen. OSSEOUS STRUCTURES: Multiple old healed fracture deformities of the left-sided ribs. Degenerative ewelina nges of the spine are redemonstrated. BOWEL: Again noted is subtotal colectomy. Multiple sites of small bowel anastomosis are identified. There is redemonstration of gastric rugal thickening most notably within the body and fundus. There i s redundancy of the sigmoid colon and there appears to be sigmoid to small bowel anastomosis. No smal l bowel dilatation is identified. OTHER: The previously noted findings of chronic superior mesenteric occlusion with collateralization are better appreciated on the prior examination of as there is administration of intravenous co ntrast on that examination. There is redemonstration of a large vessel anastomosed to the distal abdo diandra aorta and distal superior mesenteric branches. IMPRESSION: 1. IMPROVEMENT OF PREVIOUSLY SEEN BIBASILAR OPACITIES WITH FEW NODULAR AREAS REMAINING. FOLLOW-UP AFT ER TREATMENT IS RECOMMENDED TO EXCLUDE PULMONARY NODULE. 2. MULTIFOCAL POSTSURGICAL CHANGES OF THE BOWEL WITHOUT EVIDENCE OF OBSTRUCTION. PERSISTENT GASTRIC F OLD THICKENING AGAIN COULD REPRESENT GASTRITIS ALTHOUGH DIRECT VISUALIZATION REMAINS A RECOMMENDATION . 3. 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 4. 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
--- NOTE | 2017-07-25 12:52 | CONS ---
CONSULTATION REQUESTING PHYSICIAN: Dr. Swanson. REASON FOR CONSULTATION: Abdominal pain. HISTORY OF PRESENT ILLNESS: The patient is a 47-year-old white male well known to me from his previous hospitalizations. He has history of multiorgan transplant which included stomach, small bowel, pancreas and duodenum done in 2002 at the [facility]. He was admitted 6 months ago with acute pancreatitis related to alcohol use. The patient has been having some abdominal discomfort, abdominal distention and tightness on and off for the last 3 weeks. He felt extremely bloated, had some nausea, vomiting, came into the emergency room and subsequently had a CT of the abdomen and pelvis done that showed multiple loops of dilated small bowel suspicious for ileus versus obstruction and surgery has been consulted. This morning the patient states that he continues to have some bloating. He did have a couple of bowel movements yesterday. No further episodes of nausea, vomiting. Abdomen feels much better, less bloated, but still not back to normal. He reports no abdominal pain. Denies any rectal bleeding or melena. PAST MEDICAL HISTORY: Significant for atrial fibrillation, COPD, sleep apnea, multiorgan transplant as described above, acute pancreatitis, chronic renal insufficiency, diabetic gastroparesis. PAST SURGICAL HISTORY: Multivisceral organ transplant, left knee arthroscopy, EGD and colonoscopy a year ago, ERCP with insertion of pancreatic stent at [facility] 3 months ago. MEDICATIONS: At home include vitamin D3, magnesium gluconate, multivitamin, Prograf, Vitamin D3, hydrocortisone, Vimpat, Bactrim, [place], trazodone, Florinef, ProAir, Atrovent, vitamin B6, Coumadin, Seroquel, Flonase, Neurontin. ALLERGIES: To MORPHINE, HEPARIN, ASPIRIN, TORADOL. SOCIAL HISTORY: History of smoking, alcohol use, which he quit drinking a few months ago. REVIEW OF SYSTEMS: CARDIOPULMONARY: Denies any chest pain, shortness of breath. GENITOURINARY: No dysuria or hematuria. MUSCULOSKELETAL: Unremarkable. SKIN: Unremarkable. ENDOCRINE: Unremarkable. PSYCHIATRIC: Unremarkable. NEUROLOGY: Unremarkable. ENT/VISION: Unremarkable. CONSTITUTIONAL: No recent weight loss, fever, or night sweats. PHYSICAL EXAMINATION: VITAL SIGNS: Blood pressure is 111/51, pulse rate 68, temperature 97.8. HEENT EXAMINATION: Unremarkable. Conjunctivae clear. Sclerae anicteric. Oral cavity, no lesions. NECK: No jugular venous distention or lymph node enlargement. CHEST: Clear to auscultation. HEART: Regular rate and rhythm. ABDOMEN: Soft, nondistended, was nontender, no organomegaly. EXTREMITIES: No pedal edema. SKIN: No rashes. NEUROLOGIC: Alert and oriented x3. No focal deficits. LAB: At the time of admission hospital; WBC 10.5, hemoglobin 8.3, platelets are 180. INR 1.7. ALT, AST, T bilirubin, alkaline phosphatase are normal. Amylase and lipase were normal. CT of the abdomen done on July 22 on the day of admission the hospital did reveal multiple distended small bowel loops with mild circumferential wall thickening throughout the sigmoid colon, evidence of subtotal colectomy and chronic mesenteric occlusion with surgical bypass. IMPRESSION: 1. This is a patient with a history of multiorgan transplant in 2002 at the [facility] who presents to the hospital with abdominal distention, abdominal discomfort for the last [address] scan showed multiple dilated small bowel loops suspicious for ileus versus partial obstruction. Surgery following the patient closely. 2. History of acute recurrent pancreatitis. Last episode 3 months ago. Currently no evidence of acute pancreatitis. The patient is status post ERCP with pancreatic biliary duct stent placement at [facility] 3 months ago and he had repeat EGD with stent removal by me about 4 weeks ago. 3. History of gastroparesis. 4. Atrial fibrillation on Coumadin. RECOMMENDATION: 1. Continue management as per Surgery. The patient did have abdominal x-rays done this morning, which showed evidence of persistent dilation of small bowel loops with air-fluid levels. However, there was a small amount of fluid and intraperitoneal air could not be excluded and Radiology recommended a CT of the abdomen. Recommendations discussed with the nurse at the bedside and she conveyed the results of the abdominal x-ray to the . 2. From GI perspective, we will not plan on any endoscopy intervention at the present time. Continue with broad-spectrum antibiotics. Thank you for this consultation. MMODL / IJN: [id number] /
--- NOTE | 2017-07-25 12:56 | P.PN ---
Subjective Progress Note Date: 07/25/17 Patient is a 47-year-old white male who is status post stomach/small bowel/ pancreas/duodenal transplant. He was admitted to the hospital with inability to tolerate his diet and abdominal discomfort. The patient had an abdominal x- ray done today in which there was some concern of free air. The patient subsequently had a CAT scan which does not show any evidence of free air. The patient states he is feeling well. He is tolerating clear liquids. He has had some flatus. He wishes his diet to be advanced. Objective - Vital Signs Vital signs: Vital Signs Temp 97.5 F L 07/25/17 04:00 Pulse 70 07/25/17 04:00 Resp 18 07/25/17 04:00 BP 104/56 07/25/17 04:00 Pulse Ox 92 L 07/25/17 04:00 Intake & Output 07/24/17 07/25/17 07/25/17 18:59 06:59 18:59 Intake Total 1590 1750 240 Output Total 600 1200 1400 Balance 990 550 -1160 Weight 98.7 kg 98.7 kg Intake: Intake, IV Titration 1050 1750 Amount Ceftaroline Fosamil 600 250 250 mg In Sodium Chloride 0.9 % 250 ml @ 250 mls/hr IVPB Q12H GUY Rx#: [id number] Heparin Sod,Pork in 0.45% 500 NaCl 25,000 unit In 0.45 % NaCl 1 500ml.bag @ 18 UNITS/KG/HR 36.74 mls/hr IV .[id number] GUY Rx#: [id number] Meropenem 1 gm In Sodium 100 100 Chloride 0.9% 100 ml @ 100 mls/hr IVPB Q12HR GUY Rx#:[id number] Sodium Chloride 0.9% 1, 600 900 000 ml @ 75 mls/hr IV . [id number] GUY Rx#:[id number] Sodium Ferric Gluconat- 100 Sucrose 125 mg In Sodium Chloride 0.9% 100 ml @ 100 mls/hr IVPB DAILY GUY Rx#:[id number] Oral 540 240 Output: Urine 600 1200 1400 Other: Voiding Method Urinal Urinal # Voids 1,600 2 - Constitutional General appearance: Present: no acute distress - Respiratory Respiratory: bilateral: CTA - Cardiovascular Heart sounds: normal: S1, S2 - Gastrointestinal General gastrointestinal: Present: normal bowel sounds, soft - Psychiatric Psychiatric: Present: A&O x's 3, appropriate affect, intact judgment & insight - Labs CBC & Chem 7: 07/23/17 07:55 07/25/17 06:03 Labs: Abnormal Lab Results - Last 24 Hours (Table) 07/25/17 07/25/17 Range/Units 06:03 06:03 APTT 51.8 H (22.0-30.0) sec Chloride 109 H (98-107) mmol/L Creatinine 1.26 H (0.66-1.25) mg/dL Microbiology - Last 24 Hours (Table) 07/22/17 13:13 Blood Culture - Preliminary Blood No Growth after 48 hours Assessment and Plan Assessment: Impression/plan: 1. No evidence of acute surgical abdomen at this time 2. Computed tomography scan does not show free air 3. Advance diet as tolerated 4. DVT subclavian vein extending into the axillary vein 5. COPD 6. Atrial fibrillation 4. We will follow as needed
--- NOTE | 2017-07-25 13:27 | P.PN ---
Subjective Progress Note Date: 07/25/17 Principal diagnosis: Abdominal pain suspect gastroparesis. Acute venous thrombosis in the left upper extremity. Multifocal pneumonia This is a very pleasant 47-year-old gentleman who follows with Dr. Zhao as his primary care physician. 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 He does follow closely with Dr. Daniels in our office as well. He had recently undergone bronchoscopy with BAL and May 2017 and was found to have an MRSA infection and was treated appropriately. 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 The patient presented here yesterday to the emergency room with multiple complaints. That mostly being of abdominal pain located in the upper abdomen over the last 2-3 days. Also had some complaints of shortness of breath, cough and congestion. He was treated with antibiotics in the outpatient setting for pleuritic type chest pain. That pain has subsided however he does remain dyspneic on minimal exertion. He is maintaining good O2 saturations in the 90s on room air. Initial white count 17.5. Current white count 10.6. Hemoglobin 7.8. Presenting INR 1.7. Current INR 1.9. The patient was found to have left upper extremity venous thrombosis involving the subclavian vein extending to the axilla and brachiocephalic vein. There is also noted thrombosis in the internal jugular vein on the left. He is currently on a heparin drip. Computed tomography scan of the chest revealed new multifocal reticular nodular opacities that were not present on the previous exam in April 2017. Most likely reflecting multifocal pneumonia in this immunocompromised patient. He has been initiated on vancomycin, meropenem and Zosyn. He is continued on Bactrim on Saturday. The patient is seen again today in 07/24/2017 in follow-up on the selective care unit. He is awake and alert in no acute distress. He has been up ambulating in the room and in the hallway without any significant shortness of breath. He is maintaining good O2 saturations in the 90s on room air. His been afebrile. Hemodynamically stable. His abdominal discomfort has subsided. He is tolerating a liquid diet. The patient is seen again today 07/25/2017 in follow-up on the selective care unit. He is awake and alert in no acute distress. He denies any shortness of breath, cough or congestion. Continues to maintain good O2 saturations in the 90s on room air. His chest x-ray continues to show multifocal pneumonia. His abdominal discomfort has subsided. Computed tomography scan of the abdomen did not reveal any evidence of free air. His diet is been advanced to Objective - Vital Signs Vital signs: Vital Signs Temp 97.5 F L 07/25/17 04:00 Pulse 70 07/25/17 04:00 Resp 18 07/25/17 04:00 BP 104/56 07/25/17 04:00 Pulse Ox 92 L 07/25/17 04:00 Intake & Output 07/24/17 07/25/17 07/25/17 18:59 06:59 18:59 Intake Total 1590 1750 240 Output Total 600 1200 1400 Balance 990 550 -1160 Weight 98.7 kg 98.7 kg Intake: Intake, IV Titration 1050 1750 Amount Ceftaroline Fosamil 600 250 250 mg In Sodium Chloride 0.9 % 250 ml @ 250 mls/hr IVPB Q12H GUY Rx#: [id number] Heparin Sod,Pork in 0.45% 500 NaCl 25,000 unit In 0.45 % NaCl 1 500ml.bag @ 18 UNITS/KG/HR 36.74 mls/hr IV .[id number] GUY Rx#: [id number] Meropenem 1 gm In Sodium 100 100 Chloride 0.9% 100 ml @ 100 mls/hr IVPB Q12HR UGY Rx#:[id number] Sodium Chloride 0.9% 1, 600 900 000 ml @ 75 mls/hr IV . [id number] GUY Rx#:[id number] Sodium Ferric Gluconat- 100 Sucrose 125 mg In Sodium Chloride 0.9% 100 ml @ 100 mls/hr IVPB DAILY GUY Rx#:[id number] Oral 540 240 Output: Urine 600 1200 1400 Other: Voiding Method Urinal Urinal # Voids 1,600 2 - Exam GENERAL EXAM: Pale, weak. Alert, fairly comfortable in no apparent distress. HEAD: Normocephalic. EYES: Normal reaction of pupils, equal size. NOSE: Clear with pink turbinates. THROAT: No erythema or exudates. NECK: No masses, no JVD. CHEST: No chest wall deformity. LUNGS: Equal air entry with bilateral scattered rhonchi. Diminished.. CVS: S1 and S2 normal with no audible murmur, regular rhythm. ABDOMEN: Slightly distended, normal bowel sounds, no guarding or rigidity. SPINE: No scoliosis or deformity SKIN: No rashes CENTRAL NERVOUS SYSTEM: No focal deficits, tone is normal in all 4 extremities. EXTREMITIES: Left upper extremity edema. No clubbing, no cyanosis. Peripheral pulses are intact. - Labs CBC & Chem 7: 07/23/17 07:55 07/25/17 06:03 Labs: Abnormal Lab Results - Last 24 Hours (Table) 07/25/17 07/25/17 Range/Units 06:03 06:03 APTT 51.8 H (22.0-30.0) sec Chloride 109 H (98-107) mmol/L Creatinine 1.26 H (0.66-1.25) mg/dL Microbiology - Last 24 Hours (Table) 07/22/17 13:13 Blood Culture - Preliminary Blood No Growth after 48 hours Assessment and Plan Assessment: Assessment #1 Abdominal pain of unclear etiology. CT angiogram of the abdomen revealed the proximal sigmoid has become even more dilated than the prior exam with mild circumferential wall thickening extending to the remainder of the sigmoid. Questionable findings of either trapped dependent air along the posterior sigmoid or mild colonic pneumatosis. Surgical services planning no interventions. The patient is tolerating a liquid diet today. Abdominal x-ray today reveals evidence of ileus versus partial obstruction. The patient had a follow-up computed tomography scan of the abdomen today 07/25/2017 that did not reveal any evidence of free air. His abdominal discomfort is improved. His diet has been advanced. #2 Acute venous thrombosis involving the subclavian vein extending in the axilla and brachiocephalic vein on the left upper extremity. Internal jugular vein also appears to be thrombosed. The patient has been on warfarin in the outpatient setting, presenting subtherapeutic at 1.7 INR. Remains on heparin drip. #3 Dyspnea secondary to new multifocal reticulonodular opacities reflecting possible multifocal pneumonia in an immunocompromised patient. There is underlying pulmonary arterial hypertension. Currently on ceftaroline, meropenem and Bactrim. #4 Multivisceral organ transplantation done at the [facility], [place] including stomach small bowel and pancreas. Splenectomy. #5 Chronic pancreatitis, requiring insertion of a pancreatic stent and the patient is currently up ectatic enzyme supplements #6 Chronic immunosuppression maintain on a combination of Prograf #7 Chronic adrenal insufficiency maintained on Cortef #8 Previous hospitalization for GI bleed #9 Gastroparesis #10 Chronic renal failure #11 Chronic anemia secondary to renal failure #12 Previous exposure to MRSA most recently noted in bronchial washings from 10/2017. 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 Plan: The patient was seen and evaluated by Dr. Duarte. His x-ray and labs were reviewed. We'll continue with his current medications. We will increase his activity as tolerated. We will continue to follow and make further recommendations based on his clinical status. I, the cosigning physician, performed a history & physical examination of the patient. Lungs sounds have few scattered rhonchi. Maintaining good O2 saturations in the 90s on room air. I discussed the assessment and plan of care with my nurse practitioner, Zenobia Haney. I attest to the above note as dictated by her.
[2017-07-25] MEDS: MORPHINE ORAL SOLN 10 MG/5 ML CUP PO PRN ×2 (14:25→19:53)
--- NOTE | 2017-07-25 16:37 | PN ---
PROGRESS NOTE DATE OF SERVICE: 07/25/17. PRESENTING COMPLAINT: Abdominal pain. INTERVAL HISTORY: This patient rather complicated medical history and multivisceral transplant, presented with pneumonia. Patient is also on IV heparin for left subclavian DVT. At this point, it is unclear if this is chronic. Dr. Shipley from vascular is following up on the same. Breathing is doing much better. Patient has been on clear liquids. Did have a repeat CT scan of the abdomen today, out of bed which is looking much better. Abdomen is rather soft. The patient has been out of bed. Overall feels much better. REVIEW OF SYSTEMS: Done for constitutional, cardiovascular, GI, pulmonary; relevant findings as above. CURRENT MEDICATIONS: Reviewed that include IV ceftaroline, IV heparin, IV meropenem, normal saline. PHYSICAL EXAMINATION: Afebrile, pulse 74, respiratory 18, blood pressure 109/59, pulse ox 94% on room air. General appearance: Lying in bed, comfortable. Eyes: Pupils are equal. Conjunctivae normal. HEENT: External appearance of nose and ears normal. Oral cavity normal. Neck JVD not raised. Mass not palpable. Respiratory effort lungs slightly decreased breath sounds. Cardiovascular 1st and 2nd sounds normal. Minimal edema. ABDOMEN: Soft, nontender. Liver and spleen not palpable. Psychiatry: Alert and oriented times three. Mood and affect normal. Extremities: Chronic swelling of the left lower extremity. INVESTIGATIONS: Potassium 4.2, BUN 10, creatinine 1.26. ASSESSMENT: 1. Acute multifocal bilateral multi segment pneumonia suspect gram-negative organism. 2. Chronically improved immunosuppressed patient with clinical improvement significantly. 3. Chronic obstructive pulmonary disease in an ex-smoker. 4. Four organ transplant 2002 including small-bowel, pancreas, duodenum, stomach being followed at [facility]. 5. Gastroesophageal reflux disease. 6. Chronic gastroparesis. 7. Chronic mesenteric vein thrombosis. The patient has been on Coumadin. 8. Chronic kidney disease stage IIIB. 9. Immunosuppressed state. 10.Possible acute. 11.Acute versus chronic deep vein thrombosis in the left subclavian extending into the axillary, brachiocephalic, internal jugular vein. PLAN: Clinically doing quite much better. Patient is on clear liquids. Per surgery, patient diet is being advanced. Pulmonary simeon, also patient doing much better. Will await further input from Dr. Shipley. Repeat labs in the morning. The patient will be walking to the hallway today he says. Overall feeling much better. MMODL / IJN: [id number] /
[2017-07-25] MEDS: NICOTINE 14MG/24HR PATCH TRANSDERM SCH (16:52)
[2017-07-25] MEDS ORDERED: WARFARIN 7.5 MG TAB PO ONE (18:00)
[2017-07-25] MEDS: traZODone HCL 100 MG TAB PO SCH (19:52)
[2017-07-25] MEDS: HYDROCORTISONE 10 MG TAB PO SCH (19:52)
[2017-07-25] MEDS: METHADONE 5 MG TAB PO SCH (20:04)
--- NOTE | 2017-07-25 22:22 | P.PN ---
Subjective Progress Note Date: 07/25/17 Principal diagnosis: abd pain 47-year-old male presents to emergency center feeling poorly with a several-day history of increasing abdominal bloating that was causing increasing discomfort. 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 He done modestly well over time with what appears to be limited rejection issues, but remains immunosuppressed overtime. The patient also relates over the last several days he's had some increasing difficulties with some cough and sputum production. The patient was hospitalized in April which point in time he had pneumonia and severe pleuritic chest pain that is improved after his hospitalization. He was doing relatively well until the onset of the current symptoms. He did relate these having cough without much sputum production. He is not having hemoptysis. He is not having the severe pleuritic chest pain like he had earlier in the year. He's had significant abdominal bloating that has been problematic as of late, his transplant surgeon has related that he has gained some weight and this has had some impact on the organs and seems to be causing some of his bloating and discomfort. He did have difficulties and required pancreatic stent in the past but seems to have normal amylase and lipase at this time. He is denying high- grade fevers chills or rigors but does feel quite poorly overall. 07/24/2017 reveals the patient be feeling somewhat better and walking in the halls. He continues to have some abdominal pain. Seems to be less short of breath and denies new acute pains. 07/25/2017 patient is improved further today. His abdominal pain is improved. His shortness of breath is improved. X-ray for the morning revealed some concerns of potential free air in the abdomen. Consequently a computed tomography scan of the abdomen and pelvis been requested. In fortunately no free air has been found. Surgery has been following and have no further surgical plans at this time. Objective - Vital Signs Vital signs: Vital Signs Temp 97.1 F L 07/25/17 20:00 Pulse 76 07/25/17 20:00 Resp 20 07/25/17 20:00 BP 99/51 07/25/17 20:00 Pulse Ox 95 07/25/17 20:00 Intake & Output 07/25/17 07/25/17 07/26/17 06:59 18:59 06:59 Intake Total 1750 1490 400.481 Output Total 1200 2275 Balance 550 -785 400.481 Weight 98.7 kg 98.7 kg Intake: Intake, IV Titration 1750 400.481 Amount Ceftaroline Fosamil 600 250 mg In Sodium Chloride 0.9 % 250 ml @ 250 mls/hr IVPB Q12H [facility]Y Rx#: [id number] Heparin Sod,Pork in 0.45% 500 400.481 NaCl 25,000 unit In 0.45 % NaCl 1 500ml.bag @ 18 UNITS/KG/HR 36.74 mls/hr IV .[id number] [facility]Y Rx#: [id number] Meropenem 1 gm In Sodium 100 Chloride 0.9% 100 ml @ 100 mls/hr IVPB Q12HR [facility] Rx#:[id number] Sodium Chloride 0.9% 1, 900 000 ml @ 75 mls/hr IV . [id number] [facility]Y Rx#:[id number] Oral 1490 Output: Urine 1200 2275 Other: Voiding Method Urinal # Voids 2 2 # Bowel Movements 0 - Exam 47-year-old male who is not in distress but complains of weakness fatigue and malaise HEENT: Anicteric conjunctiva are pink and moist nasal mucosa grossly intact without significant lesions, there is no thrush. Neck: The neck is supple without significant lymphadenopathy or thyromegaly. Lungs: Symmetrical air entry is noted, few expiratory wheezes are scattered but no bronchial sounds are heard. No dullness or egophony is appreciated Heart: Regular rate and rhythm with an audible S1-S2, no S3 soft S4. There is no significant murmur click or rub, PMI was nondisplaced. Abdomen: Patient complains of distention, abdomen is not tympanic, Positive bowel sounds is some mild generalized tenderness without palpable masses or organomegaly. There was no guarding or rebound. Extremities: The upper extremities have symmetrical pulses, left arm is more swollen than compared to the right. There is no significant erythema and it is not very tender. No splinter hemorrhages were noted. The lower extremities are free from significant edema. The peripheral pulses were 2+ and symmetric. Neuro: Awake alert oriented to person place and time. There are no acute new gross focal sensory motor deficits. - Labs CBC & Chem 7: 07/23/17 07:55 07/25/17 06:03 Labs: Abnormal Lab Results - Last 24 Hours (Table) 07/25/17 07/25/17 Range/Units 06:03 06:03 APTT 51.8 H (22.0-30.0) sec Chloride 109 H (98-107) mmol/L Creatinine 1.26 H (0.66-1.25) mg/dL Microbiology - Last 24 Hours (Table) 07/22/17 13:13 Blood Culture - Preliminary Blood No Growth after 72 hours Laboratory Results WBC 10.6 k/uL (3.8-10.6) 07/23/17 07:55 RBC 3.31 m/uL (4.30-5.90) L 07/23/17 07:55 Hgb 7.8 gm/dL (13.0-17.5) L 07/23/17 07:55 Hct 27.7 % (39.0-53.0) L 07/23/17 07:55 MCV 83.7 fL (80.0-100.0) 07/23/17 07:55 MCH 23.6 pg (25.0-35.0) L 07/23/17 07:55 MCHC 28.2 g/dL (31.0-37.0) L 07/23/17 07:55 RDW 18.5 % (11.5-15.5) H 07/23/17 07:55 Plt Count 218 k/uL (150-450) 07/23/17 07:55 Neutrophils % 57 % 07/23/17 07:55 Lymphocytes % 23 % 07/23/17 07:55 Monocytes % 10 % 07/23/17 07:55 Eosinophils % 5 % 07/23/17 07:55 Basophils % 0 % 07/23/17 07:55 Neutrophils # 6.0 k/uL (1.3-7.7) 07/23/17 07:55 Lymphocytes # 2.4 k/uL (1.0-4.8) 07/23/17 07:55 Monocytes # 1.1 k/uL (0-1.0) H 07/23/17 07:55 Eosinophils # 0.6 k/uL (0-0.7) 07/23/17 07:55 Basophils # 0.0 k/uL (0-0.2) 07/23/17 07:55 Hypochromasia Marked 07/23/17 07:55 Poikilocytosis Slight 07/23/17 07:55 Anisocytosis Slight 07/23/17 07:55 PT 17.4 sec (9.0-12.0) H 07/23/17 07:55 INR 1.9 (<1.2) H 07/23/17 07:55 APTT 51.8 sec (22.0-30.0) H 07/25/17 06:03 Sodium 144 mmol/L (137-145) 07/25/17 06:03 Potassium 4.2 mmol/L (3.5-5.1) 07/25/17 06:03 Chloride 109 mmol/L (98-107) H 07/25/17 06:03 Carbon Dioxide 25 mmol/L (22-30) 07/25/17 06:03 Anion Gap 10 mmol/L 07/25/17 06:03 BUN 10 mg/dL (9-20) 07/25/17 06:03 Creatinine 1.26 mg/dL (0.66-1.25) H 07/25/17 06:03 Est GFR (CKD-EPI)AfAm 77 (>60 ml/min/1.73 sqM) 07/25/17 06:03 Est GFR (CKD-EPI)NonAf 67 (>60 ml/min/1.73 sqM) 07/25/17 06:03 Glucose 90 mg/dL (74-99) 07/25/17 06:03 Plasma Lactic Acid [place] 1.3 mmol/L (0.7-2.0) 07/22/17 13:13 Calcium 8.5 mg/dL (8.4-10.2) 07/25/17 06:03 Iron <2 ug/dL (65-175) L 07/23/17 16:08 TIBC 47 ug/dL (228-460) L 07/23/17 16:08 Iron Saturation 2.13 (15.00-50.00) L 07/23/17 16:08 Total Bilirubin 0.2 mg/dL (0.2-1.3) 07/23/17 07:55 AST 18 U/L (17-59) 07/23/17 07:55 ALT 36 U/L (21-72) 07/23/17 07:55 Alkaline Phosphatase 71 U/L (38-126) 07/23/17 07:55 Total Creatine Kinase 36 U/L (55-170) L 07/22/17 13:13 CK-MB (CK-2) 0.4 ng/mL (0.0-2.4) 07/22/17 13:13 CK-MB (CK-2) Rel Index 1.1 07/22/17 13:13 Troponin I <0.012 ng/mL (0.000-0.034) 07/22/17 13:13 Total Protein 5.3 g/dL (6.3-8.2) L 07/23/17 07:55 Albumin 3.0 g/dL (3.5-5.0) L 07/23/17 07:55 Amylase 79 U/L (30-110) 07/22/17 13:13 Lipase 75 U/L (23-300) 07/22/17 13:13 Urine Color Yellow 07/22/17 14:02 Urine Appearance Clear (Clear) 07/22/17 14:02 Urine pH 5.5 (5.0-8.0) 07/22/17 14:02 Ur Specific [place] 1.016 (1.001-1.035) 07/22/17 14:02 Urine Protein Trace (Negative) H 07/22/17 14:02 Urine Glucose (UA) Negative (Negative) 07/22/17 14:02 Urine Ketones Negative (Negative) 07/22/17 14:02 Urine Blood Negative (Negative) 07/22/17 14:02 Urine Nitrite Negative (Negative) 07/22/17 14:02 Urine Bilirubin Negative (Negative) 07/22/17 14:02 Urine Urobilinogen <2.0 mg/dL (<2.0) 07/22/17 14:02 Ur Leukocyte Esterase Negative (Negative) 07/22/17 14:02 Microbiology 07/22/17 13:13 Blood Blood Culture - Preliminary No Growth after 72 hours Assessment and Plan (1) Multifocal pneumonia Narrative/Plan: 47-year-old male who has a history of the multilayer organ transplant silver years ago with hospitalist earlier this year with significant pleuritic chest pain. He was treated and then later on with ongoing symptoms was taken for bronchoscopy. MRSA was positive from his sputum is received treatment with appears to be with a course of outpatient intravenous antibiotic therapy with vancomycin. Nephrology is now following and have requested no further vancomycin therapy given his worsening of his baseline chronic kidney disease. Pharmacy does have Tefloro available which can be utilized at this time for the failure of his vancomycin therapy. With his many medications he is not a Zyvox candidate and since pneumonia daptomycin would not be effective. It is not noted with recent bronchoscopy that any other pathogens were found, however I was not able to determine if pneumocystis testing was performed. If the patient fails to respond to therapy targeted against MRSA may need further bronchoscopy with specimens specifically looking for pneumocystis and other pathogens. Given his level of immunocompromise will continue with gram-negative coverage and Merrem will be utilized in conjunction with the Ceftaroline. Cultures are in process may further help direct therapy. His abdominal distention seems to be quite subjective at the moment and even better than during his last stay. The significant leukocytosis at admission seems to be improving and shall be monitored. 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 Does have mild swelling of the arm fortunately is not uncomfortable. 07/24/2017 the patient is feeling Some what better and is tolerating the antibiotic therapy well of Merrem and Ceftaroline. Cultures are negative so far.leukocytosis is improving and no further fever is noted.Patient is being followed by multiple consultants and seems to be having some improvement. Creatinine is down to 1.30 also. We'll plan continue current antibiotic therapy and will have to determine best possible option for antibiotics at discharge given his multiple medications including his immunosuppressive regimen. 07/25/2017 reveals the patient to have further improvement today, his abdominal pain is definitely improved. His appetite is improved and is eating a more normal diet. His shortness of breath is improving. He is having no significant fevers or chills. He is tolerating heparin well without evidence of bleeding. He's been seen by pulmonary critical care and general surgery. No plans for surgical intervention. As he improves we'll have to consider options for antibiotic therapy at the time of discharge. Profound iron deficiency has been found is receiving intravenous iron as per nephrology. There is a concern that with his transplant he is not absorbing iron well. Patient may need to be on a outpatient program for iron supplementation. Current Visit: Yes Status: Acute Code(s): J18.9 - PNEUMONIA, UNSPECIFIED ORGANISM SNOMED Code(s): 554962466 (2) Subtherapeutic anticoagulation Current Visit: No Status: Acute Code(s): Z51.81 - ENCOUNTER FOR THERAPEUTIC DRUG LEVEL MONITORING; Z79.01 - PROCESS PLANNER (CURRENT) USE OF ANTICOAGULANTS SNOMED Code(s): 26587368 (3) History of intestine transplant Current Visit: No Status: Acute Code(s): Z94.82 - INTESTINE TRANSPLANT STATUS SNOMED Code(s): 020651316 (4) Encounter for aftercare following multiple organ transplant Current Visit: Yes Status: Acute Code(s): Z48.288 - ENCOUNTER FOR AFTERCARE FOLLOWING MULTIPLE ORGAN TRANSPLANT SNOMED Code(s): 993043463
[2017-07-26] MEDS: MORPHINE ORAL SOLN 10 MG/5 ML CUP PO PRN ×3 (02:46→15:20)
[2017-07-26] MEDS: diphenhydrAMINE 50 MG/ML 1 ML VIAL IVP PRN ×3 (02:52→15:24)
[2017-07-26] MEDS: HEPARIN SOD,PORK IN 0.45% NACL 25,000 UNIT in 0.45% NACL 1 500ML.BAG IV SCH (06:37)
[2017-07-26] MEDS: PANTOPRAZOLE 40 MG TABLET PO SCH ×2 (06:47→17:24)
[2017-07-26] MEDS: LIPASE 5,000/PROTEASE 17,000/AMYLASE 27,0000 PO SCH ×2 (06:47→17:24)
[2017-07-26] MEDS: CEFTAROLINE FOSAMIL 600 MG in SODIUM CHLORIDE 0.9% 250 ML IVPB SCH (06:47)
[2017-07-26 07:00] LABS: INR 1.3 (<1.2); Partial Thromboplastin Time 58.6 sec (22.0-30.0)
[2017-07-26 07:01] LABS: Calcium 8.4 mg/dL (8.4-10.2); Potassium 4.4 mmol/L (3.5-5.1)
[2017-07-26] MEDS: SYMBICORT 160-4.5 MCG INHALER INHALATION SCH (08:26)
[2017-07-26] MEDS: IPRATROPIUM-ALBUTEROL 3 ML NEB INHALATION SCH ×3 (08:27→15:51)
[2017-07-26] MEDS ORDERED: SODIUM FERRIC GLUCONAT-SUCROSE 125 MG in SODIUM CHLORIDE 0.9% 100 ML IVPB SCH (09:00)
[2017-07-26] MEDS: METOPROLOL SUCCINATE (ER) 25 MG TAB.ER.24H PO SCH (09:14)
[2017-07-26] MEDS: SUCRALFATE 1 GM TAB PO SCH (09:14)
[2017-07-26] MEDS: MAGNESIUM OXIDE 400 MG TAB PO SCH (09:14)
[2017-07-26] MEDS: FLUDROCORTISONE 0.1 MG TAB PO SCH (09:15)
[2017-07-26] MEDS: QUEtiapine 25 MG TAB PO SCH (09:15)
[2017-07-26] MEDS: GABAPENTIN 300 MG CAP PO SCH ×2 (09:15→15:20)
[2017-07-26] MEDS: SERTRALINE 50 MG TAB PO SCH (09:16)
[2017-07-26] MEDS: TACROLIMUS 1 MG CAP PO SCH (09:16)
[2017-07-26] MEDS: PYRIDOXINE 50 MG TAB PO SCH (09:17)
[2017-07-26] MEDS: FERROUS SULFATE 325 MG TAB PO SCH (09:17)
[2017-07-26] MEDS: CALCIUM CARB-VIT D 250MG-125UN 1 EACH TAB PO SCH (09:18)
[2017-07-26] MEDS: CHOLECALCIFEROL 1,000 UNIT TAB PO SCH (09:18)
[2017-07-26] MEDS: HYDROCORTISONE 20 MG TAB PO SCH (09:20)
--- NOTE | 2017-07-26 09:24 | P.PN ---
Subjective Patient is seen in follow-up for acute kidney injury on chronic kidney disease. Creatinine is stable at 1.3 today. Patient does have chronic kidney disease stage III secondary to nephrosclerosis and also due to long-term calcineurin inhibitor use with baseline creatinine in the range of 1.2-1.3. Patient underwent multi-visceral organ transplant due to congenital abnormalities at [facility] several years ago. Patient presented with abdominal discomfort. He is currently on full liquid diet. Overall the pain is improved. He is also being treated for pneumonia. Hemodynamically stable. Vital signs are stable. General: The patient appeared well nourished and normally developed. HEENT: Head exam is unremarkable. Neck is without jugular venous distension. LUNGS: Lungs are clear to auscultation and percussion. Breath sounds decreased. HEART: Rate and Rhythm are regular. First and second heart sounds normal. No murmurs, rubs or gallops. ABDOMEN: Abdominal exam reveals normal bowel sounds. Non-tender and non- distended. No evidence of peritonitis. EXTREMITITES: No clubbing, cyanosis, or edema. Objective - Vital Signs Vital signs: Vital Signs Temp 97.1 F L 07/26/17 04:00 Pulse 69 07/26/17 04:00 Resp 20 07/26/17 04:00 BP 114/55 07/26/17 04:00 Pulse Ox 95 07/26/17 04:00 Intake & Output 07/25/17 07/26/17 07/26/17 18:59 06:59 18:59 Intake Total 1490 724.437 Output Total 2275 325 Balance -785 399.437 Weight 98.7 kg 99.2 kg Intake: Intake, IV Titration 724.437 Amount Heparin Sod,Pork in 0.45% 724.437 NaCl 25,000 unit In 0.45 % NaCl 1 500ml.bag @ 18 UNITS/KG/HR 36.74 mls/hr IV .[id number] ON LICENSE OF [facility] Rx#: [id number] Oral 1490 Output: Urine 2275 325 Other: Voiding Method Urinal # Voids 2 2 # Bowel Movements 0 - Labs CBC & Chem 7: 07/23/17 07:55 07/26/17 06:33 Labs: Abnormal Lab Results - Last 24 Hours (Table) 07/26/17 07/26/17 Range/Units 06:33 06:33 INR 1.3 H (<1.2) APTT 58.6 H (22.0-30.0) sec Chloride 110 H (98-107) mmol/L BUN 7 L (9-20) mg/dL Creatinine 1.30 H (0.66-1.25) mg/dL Microbiology - Last 24 Hours (Table) 07/22/17 13:13 Blood Culture - Preliminary Blood No Growth after 72 hours Assessment and Plan Plan: Assessment: #1. Nonoliguric acute kidney injury mostly prerenal improved with IV hydration. Creatinine stable at 1.3 today. Urinalysis is quite benign. Patient did receive IV contrast on July 22 -no evidence of contrast-induced nephropathy. #2. Chronic kidney disease stage III with baseline creatinine in the range of 1.2-1.3 secondary to nephrosclerosis and long-term calcineurin inhibitor use. #3. Abdominal pain with history of multivisceral organ transplant that he was stiff [place] several years ago. Overall the pain is improved. He is now tolerating a full liquid diet. #4. Pneumonia maintained antibiotics. Infectious disease following. #5. Anemia. Severe iron deficiency noted. #6. Possible acute left subclavian thromboses maintained on anticoagulation. Plan: Continue normal saline at 75 mL an hour. Ferrlicit 125 mg IV daily for 3 days. Third dose today. Advance diet per surgical recommendations. Continue to monitor renal function and urine output. Continue with Prograf and Bactrim for now.
[2017-07-26] MEDS: METHADONE 10 MG TAB PO SCH (09:25)
[2017-07-26] MEDS: SODIUM CHLORIDE 0.9% 1,000 ML IV SCH (09:36)
[2017-07-26] MEDS: MEROPENEM 1 GM in SODIUM CHLORIDE 0.9% 100 ML IVPB SCH (09:36)
--- NOTE | 2017-07-26 12:23 | P.PN ---
Subjective Progress Note Date: 07/26/17 47-year-old male seen at the bedside patient currently is stating he is hungry and is asking for his diet to be advanced states had a bowel movement this morning urinating no difficulty feels like his abdominal pain is significantly improved.. Patient initially was admitted to the hospital with inability to tolerate a diet nausea vomiting increased abdominal discomfort. Patient has a past history of stomach small bowel pancreas duodenal transplant done 15 years prior at the [facility]. Objective - Vital Signs Vital signs: Vital Signs Temp 97.6 F 07/26/17 08:15 Pulse 68 07/26/17 08:15 Resp 18 07/26/17 08:15 BP 119/58 07/26/17 08:15 Pulse Ox 93 L 07/26/17 08:15 Intake & Output 07/25/17 07/26/17 07/26/17 18:59 06:59 18:59 Intake Total 1490 336.550 7049 Output Total 2275 325 Balance -785 235.423 9725 Weight 98.7 kg 99.2 kg Intake: Intake, IV Titration 002.760 4715 Amount Heparin Sod,Pork in 0.45% 724.437 NaCl 25,000 unit In 0.45 % NaCl 1 500ml.bag @ 18 UNITS/KG/HR 36.74 mls/hr IV .[id number] GUY Rx#: [id number] Meropenem 1 gm In Sodium 250 Chloride 0.9% 100 ml @ 100 mls/hr IVPB Q12HR GUY Rx#:[id number] Sodium Chloride 0.9% 1, 600 000 ml @ 75 mls/hr IV . [id number] GUY Rx#:[id number] Sodium Ferric Gluconat- 500 Sucrose 125 mg In Sodium Chloride 0.9% 100 ml @ 100 mls/hr IVPB DAILY GUY Rx#:[id number] Oral 1490 1540 Output: Urine 2275 325 Other: Voiding Method Urinal # Voids 2 2 # Bowel Movements 0 - Exam Physical exam 47-year-old resting in bed appears in no acute distress states abdominal pain has improved asking for diet to be advanced Lungs adequate air movement bilaterally no shortness of breath on room air Heart S1-S2 audible regular denying chest pain Abdomen soft no facial grimacing with palpitation to the abdominal wall no nausea no vomiting states had a bowel movement this morning. Passing gas. 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 done at the [facility] History of obstructive sleep apnea COPD no evidence of an exacerbation History of Gastroparesis History of paroxysmal atrial fibrillation on anticoagulation Coumadin Left arm positive for DVT subclavian vein extending into the axillary present on admission Present on admission acute on chronic abdominal pain with abdominal distention unclear etiology Plan No evidence of an acute surgical abdomen at this time Continue with the recommendations by medicine defer to Home meds as appropriate advance diet as tolerated IV fluid for hydration DVT and GI prophylaxis Will sign off and re-eval as needed no further surgical recommendations at this time note dictated for Dr. jeremías blount The above impression and plan of care have been discussed and directed by signing physician. Summer Quintana nurse practitioner acting as scribe for signing physician.
--- NOTE | 2017-07-26 12:47 | P.PN ---
Subjective Progress Note Date: 07/26/17 Principal diagnosis: Abdominal pain suspect gastroparesis. Acute venous thrombosis in the left upper extremity. Multifocal pneumonia This is a very pleasant 47-year-old gentleman who follows with Dr. Zhao as his primary care physician. 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 He does follow closely with Dr. Daniels in our office as well. He had recently undergone bronchoscopy with BAL and May 2017 and was found to have an MRSA infection and was treated appropriately. 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 The patient presented here yesterday to the emergency room with multiple complaints. That mostly being of abdominal pain located in the upper abdomen over the last 2-3 days. Also had some complaints of shortness of breath, cough and congestion. He was treated with antibiotics in the outpatient setting for pleuritic type chest pain. That pain has subsided however he does remain dyspneic on minimal exertion. He is maintaining good O2 saturations in the 90s on room air. Initial white count 17.5. Current white count 10.6. Hemoglobin 7.8. Presenting INR 1.7. Current INR 1.9. The patient was found to have left upper extremity venous thrombosis involving the subclavian vein extending to the axilla and brachiocephalic vein. There is also noted thrombosis in the internal jugular vein on the left. He is currently on a heparin drip. Computed tomography scan of the chest revealed new multifocal reticular nodular opacities that were not present on the previous exam in April 2017. Most likely reflecting multifocal pneumonia in this immunocompromised patient. He has been initiated on vancomycin, meropenem and Zosyn. He is continued on Bactrim on Saturday. The patient is seen again today in 07/24/2017 in follow-up on the selective care unit. He is awake and alert in no acute distress. He has been up ambulating in the room and in the hallway without any significant shortness of breath. He is maintaining good O2 saturations in the 90s on room air. His been afebrile. Hemodynamically stable. His abdominal discomfort has subsided. He is tolerating a liquid diet. The patient is seen again today 07/25/2017 in follow-up on the selective care unit. He is awake and alert in no acute distress. He denies any shortness of breath, cough or congestion. Continues to maintain good O2 saturations in the 90s on room air. His chest x-ray continues to show multifocal pneumonia. His abdominal discomfort has subsided. Computed tomography scan of the abdomen did not reveal any evidence of free air. His diet is been advanced to full liquids. The patient is seen again today 07/26/2017 in follow-up on the selective care unit. He is resting comfortably in bed. He denies any shortness of breath, cough or congestion. Diminished maintaining good O2 saturations in the 90s on room air. No significant abdominal discomfort. His diet has now been advanced to regular. The edema of the left upper extremity is improved. He remains on a heparin drip and being transitioned back to his warfarin. Objective - Vital Signs Vital signs: Vital Signs Temp 97.6 F 07/26/17 08:15 Pulse 68 07/26/17 08:15 Resp 18 07/26/17 08:15 BP 119/58 07/26/17 08:15 Pulse Ox 93 L 07/26/17 08:15 Intake & Output 07/25/17 07/26/17 07/26/17 18:59 06:59 18:59 Intake Total 1490 265.109 8101 Output Total 2275 325 Balance -785 872.542 1855 Weight 98.7 kg 99.2 kg Intake: Intake, IV Titration 059.899 4570 Amount Heparin Sod,Pork in 0.45% 724.437 NaCl 25,000 unit In 0.45 % NaCl 1 500ml.bag @ 18 UNITS/KG/HR 36.74 mls/hr IV .[id number] [facility] Rx#: [id number] Meropenem 1 gm In Sodium 250 Chloride 0.9% 100 ml @ 100 mls/hr IVPB Q12HR [facility] Rx#:[id number] Sodium Chloride 0.9% 1, 600 000 ml @ 75 mls/hr IV . [id number] [facility] Rx#:[id number] Sodium Ferric Gluconat- 500 Sucrose 125 mg In Sodium Chloride 0.9% 100 ml @ 100 mls/hr IVPB DAILY [facility] Rx#:[id number] Oral 1490 1540 Output: Urine 2275 325 Other: Voiding Method Urinal # Voids 2 2 # Bowel Movements 0 - Exam GENERAL EXAM: Pale, weak. Alert, fairly comfortable in no apparent distress. HEAD: Normocephalic. EYES: Normal reaction of pupils, equal size. NOSE: Clear with pink turbinates. THROAT: No erythema or exudates. NECK: No masses, no JVD. CHEST: No chest wall deformity. LUNGS: Equal air entry with bilateral scattered rhonchi. Diminished.. CVS: S1 and S2 normal with no audible murmur, regular rhythm. ABDOMEN: Slightly distended, normal bowel sounds, no guarding or rigidity. SPINE: No scoliosis or deformity SKIN: No rashes CENTRAL NERVOUS SYSTEM: No focal deficits, tone is normal in all 4 extremities. EXTREMITIES: Left upper extremity edema. No clubbing, no cyanosis. Peripheral pulses are intact. - Labs CBC & Chem 7: 07/23/17 07:55 07/26/17 06:33 Labs: Abnormal Lab Results - Last 24 Hours (Table) 07/26/17 07/26/17 Range/Units 06:33 06:33 INR 1.3 H (<1.2) APTT 58.6 H (22.0-30.0) sec Chloride 110 H (98-107) mmol/L BUN 7 L (9-20) mg/dL Creatinine 1.30 H (0.66-1.25) mg/dL Microbiology - Last 24 Hours (Table) 07/22/17 13:13 Blood Culture - Preliminary Blood No Growth after 72 hours Assessment and Plan Assessment: Assessment #1 Abdominal pain of unclear etiology. CT angiogram of the abdomen revealed the proximal sigmoid has become even more dilated than the prior exam with mild circumferential wall thickening extending to the remainder of the sigmoid. Questionable findings of either trapped dependent air along the posterior sigmoid or mild colonic pneumatosis. Surgical services planning no interventions. The patient is tolerating a liquid diet today. Abdominal x-ray today reveals evidence of ileus versus partial obstruction. The patient had a follow-up computed tomography scan of the abdomen today 07/25/2017 that did not reveal any evidence of free air. His abdominal discomfort is improved. His diet has been advanced. #2 Acute venous thrombosis involving the subclavian vein extending in the axilla and brachiocephalic vein on the left upper extremity. Internal jugular vein also appears to be thrombosed. The patient has been on warfarin in the outpatient setting, presenting subtherapeutic at 1.7 INR. Remains on heparin drip. Current INR 1.3. Been transitioned back to warfarin. #3 Dyspnea secondary to new multifocal reticulonodular opacities reflecting possible multifocal pneumonia in an immunocompromised patient. There is underlying pulmonary arterial hypertension. Currently on ceftaroline, meropenem and Bactrim. #4 Multivisceral organ transplantation done at the [facility] including stomach small bowel and pancreas. Splenectomy. #5 Chronic pancreatitis, requiring insertion of a pancreatic stent and the patient is currently up ectatic enzyme supplements #6 Chronic immunosuppression maintain on a combination of Prograf #7 Chronic adrenal insufficiency maintained on Cortef #8 Previous hospitalization for GI bleed #9 Gastroparesis #10 Chronic renal failure #11 Chronic anemia secondary to renal failure #12 Previous exposure to MRSA most recently noted in bronchial washings from 10/2017. 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 Plan: The patient was seen and evaluated by Dr. Duarte. We'll continue with his current medications. He is being transitioned back to his warfarin. Heparin drip remains. We will increase his activity as tolerated. We will continue to follow and make further recommendations based on his clinical status. I, the cosigning physician, performed a history & physical examination of the patient. Lungs sounds have few scattered rhonchi. Maintaining good O2 saturations in the 90s on room air. I discussed the assessment and plan of care with my nurse practitioner, Zenobia Haney. I attest to the above note as dictated by her.
[2017-07-26] MEDS: NICOTINE 14MG/24HR PATCH TRANSDERM SCH (15:13)
[2017-07-26] MEDS ORDERED: ENOXAPARIN 100 MG/ML SYRINGE SQ SCH (15:15)
[2017-07-26 15:30] VITALS: BP 119/59; PULSE 66; RESP 16; TEMP 97.7
[2017-07-26] MEDS: SULFAMETHOX-TMP 800-160MG 1 EACH TAB PO SCH (17:28)
[2017-07-26] MEDS ORDERED: WARFARIN 5 MG TAB PO SCH (18:00)
--- NOTE | 2017-07-26 19:59 | DS ---
DISCHARGE SUMMARY DATE OF ADMISSION: 07/22/2017. DATE OF DISCHARGE: 07/26/2017. FINAL DIAGNOSES: 1. Acute multifocal bilateral multi-segment pneumonia; suspect Gram-negative organism, present on admission. 2. Chronic obstructive pulmonary disease in an ex-smoker. 3. Four-organ transplant in 2002, including small bowel, pancreas, duodenum, stomach, being followed at [facility]. 4. Gastroesophageal reflux disease. 5. Chronic gastroparesis. 6. Chronic mesenteric vein thrombosis. 7. Chronic kidney disease, stage IIIB. 8. Immunosuppressed state. 9. 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 10.IV heparin monitoring. HOSPITAL COURSE: This patient presented with abdominal pain and distention. Workup remained all negative. Eventually patient was having bowel movements and tolerating a diet. The patient was being treated for an outpatient pneumonia, came in for the pneumonia. He was given IV antibiotics, including IV ceftaroline and meropenem. He did really well. By the time of discharge, patient's breathing was much improved. He was tolerating a diet, up and about. Patient is now afebrile. Patient's creatinine is 1.30. Patient was switched to oral antibiotics by Dr. Suárez. Care was discussed with the patient and his . Patient has stopped smoking now, he says. CONSULTATIONS: 1. Dr. Duarte from Pulmonary. 2. Dr. Linda Barroso from General Surgery. 3. Dr. Suárez from Infectious Disease. 4. Dr. Shipley from Vascular Surgery. 5. Dr. Barnard from GI. Dr. Shipley saw the patient from Vascular Surgery and thinks that the DVTs and the outbreaks are all chronic. Because patient's INR is a bit on the lower side, patient is being sent home with overlapping Lovenox. This was discussed with the patient. DISCHARGE MEDICATIONS: 1. Calcium citrate, vitamin D3 one tablet p.o. b.i.d. 2. Ferrous gluconate 325 p.o. b.i.d. 3. Magnesium 500 mg p.o. b.i.d. 4. Men's multivitamin 1 tablet p.o. daily. 5. Zoloft 150 mg p.o. daily. 6. Prograf 1 mg p.o. at bedtime. 7. Prograf 2 mg p.o. daily in the morning. 8. Vitamin D3 10,000 units p.o. daily in the morning. 9. Hydrocortisone 10 mg p.o. at bedtime. 10.Zenpep 1 capsule p.o. b.i.d. 11.Bactrim DS half a tablet p.o. Saturday, Saturday, Saturday. 12.Atrovent HFA 2 puffs b.i.d. 13.ProAir 1-2 puffs q.6 p.r.n. 14.Florinef 0.1 mg p.o. daily. 15.Trazodone 100 mg at bedtime. 16.Neurontin 300 mg p.o. t.i.d. 17.[place] 10 one tablet q.4 p.r.n. 18.Cortef 20 mg p.o. in the morning. 19.Methadone 5 mg p.o. at bedtime. 20.Carafate 1 gram p.o. b.i.d. 21.Symbicort 160/4.5 two puffs b.i.d. 22.Methadone 10 mg in the morning. 23.Toprol XL 25 mg p.o. daily. 24.Vitamin B6 50 mg p.o. daily. 25.Flonase 2 sprays each nostril daily p.r.n. 26.Coumadin 5 mg p.o. at bedtime. 27.Seroquel 25 mg p.o. b.i.d. 28.Clindamycin 300 mg q.6 for 7 days. 29.Lovenox 100 mg subcutaneously q.12; 14 doses. 30.Nicotine 14 mg patch. Follow up with Dr. Zhao in 3 days. Follow up with Dr. Maciej Shipley in 2 weeks. Follow up with Dr. Juan José Shipley in the office. Patient to have his INR checked in 3 days. Care was discussed with the patient and his . Questions were answered. MMODL / IJN: [id number] /
--- NOTE | 2017-07-26 23:19 | P.PN ---
Subjective Progress Note Date: 07/26/17 Principal diagnosis: abd pain 47-year-old male presents to emergency center feeling poorly with a several-day history of increasing abdominal bloating that was causing increasing discomfort. 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 He done modestly well over time with what appears to be limited rejection issues, but remains immunosuppressed overtime. The patient also relates over the last several days he's had some increasing difficulties with some cough and sputum production. The patient was hospitalized in April which point in time he had pneumonia and severe pleuritic chest pain that is improved after his hospitalization. He was doing relatively well until the onset of the current symptoms. He did relate these having cough without much sputum production. He is not having hemoptysis. He is not having the severe pleuritic chest pain like he had earlier in the year. He's had significant abdominal bloating that has been problematic as of late, his transplant surgeon has related that he has gained some weight and this has had some impact on the organs and seems to be causing some of his bloating and discomfort. He did have difficulties and required pancreatic stent in the past but seems to have normal amylase and lipase at this time. He is denying high- grade fevers chills or rigors but does feel quite poorly overall. 07/24/2017 reveals the patient be feeling somewhat better and walking in the halls. He continues to have some abdominal pain. Seems to be less short of breath and denies new acute pains. 07/25/2017 patient is improved further today. His abdominal pain is improved. His shortness of breath is improved. X-ray for the morning revealed some concerns of potential free air in the abdomen. Consequently a computed tomography scan of the abdomen and pelvis been requested. In fortunately no free air has been found. Surgery has been following and have no further surgical plans at this time. 07/26/2016 patient is feeling considerably better today and looks forward to going home. He has noted his abdominal pain is improved he is eating a regular diet without difficulties. No nausea or emesis. Is having bowel movements. He has received his last dose of intravenous iron and well as also improvement of significant iron deficiency anemia that has been problematic as of late. Objective - Vital Signs Vital signs: Vital Signs Temp 97.7 F 07/26/17 15:28 Pulse 66 07/26/17 15:28 Resp 16 07/26/17 15:28 BP 119/59 07/26/17 15:28 Pulse Ox 95 07/26/17 15:28 Intake & Output 07/26/17 07/26/17 07/27/17 06:59 18:59 06:59 Intake Total 178.676 6233 Output Total 325 Balance 755.276 9607 Weight 99.2 kg Intake: Intake, IV Titration 120.580 2440 Amount Heparin Sod,Pork in 0.45% 724.437 NaCl 25,000 unit In 0.45 % NaCl 1 500ml.bag @ 18 UNITS/KG/HR 36.74 mls/hr IV .[id number] [facility] Rx#: [id number] Meropenem 1 gm In Sodium 250 Chloride 0.9% 100 ml @ 100 mls/hr IVPB Q12HR [facility] Rx#:[id number] Sodium Chloride 0.9% 1, 600 000 ml @ 75 mls/hr IV . [id number] [facility] Rx#:[id number] Sodium Ferric Gluconat- 500 Sucrose 125 mg In Sodium Chloride 0.9% 100 ml @ 100 mls/hr IVPB DAILY [facility] Rx#:[id number] Oral 1540 Output: Urine 325 Other: Voiding Method Urinal # Voids 2 - Exam 47-year-old male who is not in distress but complains of weakness fatigue and malaise HEENT: Anicteric conjunctiva are pink and moist nasal mucosa grossly intact without significant lesions, there is no thrush. Neck: The neck is supple without significant lymphadenopathy or thyromegaly. Lungs: Symmetrical air entry is noted, few expiratory wheezes are scattered but no bronchial sounds are heard. No dullness or egophony is appreciated Heart: Regular rate and rhythm with an audible S1-S2, no S3 soft S4. There is no significant murmur click or rub, PMI was nondisplaced. Abdomen: Patient complains of distention, abdomen is not tympanic, Positive bowel sounds is some mild generalized tenderness without palpable masses or organomegaly. There was no guarding or rebound. Extremities: The upper extremities have symmetrical pulses, left arm is more swollen than compared to the right. There is no significant erythema and it is not very tender. No splinter hemorrhages were noted. The lower extremities are free from significant edema. The peripheral pulses were 2+ and symmetric. Neuro: Awake alert oriented to person place and time. There are no acute new gross focal sensory motor deficits. - Labs CBC & Chem 7: 07/23/17 07:55 07/26/17 06:33 Labs: Abnormal Lab Results - Last 24 Hours (Table) 07/26/17 07/26/17 Range/Units 06:33 06:33 INR 1.3 H (<1.2) APTT 58.6 H (22.0-30.0) sec Chloride 110 H (98-107) mmol/L BUN 7 L (9-20) mg/dL Creatinine 1.30 H (0.66-1.25) mg/dL Microbiology - Last 24 Hours (Table) 07/22/17 13:13 Blood Culture - Preliminary Blood No Growth after 96 hours Laboratory Results WBC 10.6 k/uL (3.8-10.6) 07/23/17 07:55 RBC 3.31 m/uL (4.30-5.90) L 07/23/17 07:55 Hgb 7.8 gm/dL (13.0-17.5) L 07/23/17 07:55 Hct 27.7 % (39.0-53.0) L 07/23/17 07:55 MCV 83.7 fL (80.0-100.0) 07/23/17 07:55 MCH 23.6 pg (25.0-35.0) L 07/23/17 07:55 MCHC 28.2 g/dL (31.0-37.0) L 07/23/17 07:55 RDW 18.5 % (11.5-15.5) H 07/23/17 07:55 Plt Count 218 k/uL (150-450) 07/23/17 07:55 Neutrophils % 57 % 07/23/17 07:55 Lymphocytes % 23 % 07/23/17 07:55 Monocytes % 10 % 07/23/17 07:55 Eosinophils % 5 % 07/23/17 07:55 Basophils % 0 % 07/23/17 07:55 Neutrophils # 6.0 k/uL (1.3-7.7) 07/23/17 07:55 Lymphocytes # 2.4 k/uL (1.0-4.8) 07/23/17 07:55 Monocytes # 1.1 k/uL (0-1.0) H 07/23/17 07:55 Eosinophils # 0.6 k/uL (0-0.7) 07/23/17 07:55 Basophils # 0.0 k/uL (0-0.2) 07/23/17 07:55 Hypochromasia Marked 07/23/17 07:55 Poikilocytosis Slight 07/23/17 07:55 Anisocytosis Slight 07/23/17 07:55 PT 12.0 sec (9.0-12.0) 07/26/17 06:33 INR 1.3 (<1.2) H 07/26/17 06:33 APTT 58.6 sec (22.0-30.0) H 07/26/17 06:33 Sodium 143 mmol/L (137-145) 07/26/17 06:33 Potassium 4.4 mmol/L (3.5-5.1) 07/26/17 06:33 Chloride 110 mmol/L (98-107) H 07/26/17 06:33 Carbon Dioxide 24 mmol/L (22-30) 07/26/17 06:33 Anion Gap 9 mmol/L 07/26/17 06:33 BUN 7 mg/dL (9-20) L 07/26/17 06:33 Creatinine 1.30 mg/dL (0.66-1.25) H 07/26/17 06:33 Est GFR (CKD-EPI)AfAm 74 (>60 ml/min/1.73 sqM) 07/26/17 06:33 Est GFR (CKD-EPI)NonAf 64 (>60 ml/min/1.73 sqM) 07/26/17 06:33 Glucose 79 mg/dL (74-99) 07/26/17 06:33 Plasma Lactic Acid [place] 1.3 mmol/L (0.7-2.0) 07/22/17 13:13 Calcium 8.4 mg/dL (8.4-10.2) 07/26/17 06:33 Iron <2 ug/dL (65-175) L 07/23/17 16:08 TIBC 47 ug/dL (228-460) L 07/23/17 16:08 Iron Saturation 2.13 (15.00-50.00) L 07/23/17 16:08 Total Bilirubin 0.2 mg/dL (0.2-1.3) 07/23/17 07:55 AST 18 U/L (17-59) 07/23/17 07:55 ALT 36 U/L (21-72) 07/23/17 07:55 Alkaline Phosphatase 71 U/L (38-126) 07/23/17 07:55 Total Creatine Kinase 36 U/L (55-170) L 07/22/17 13:13 CK-MB (CK-2) 0.4 ng/mL (0.0-2.4) 07/22/17 13:13 CK-MB (CK-2) Rel Index 1.1 07/22/17 13:13 Troponin I <0.012 ng/mL (0.000-0.034) 07/22/17 13:13 Total Protein 5.3 g/dL (6.3-8.2) L 07/23/17 07:55 Albumin 3.0 g/dL (3.5-5.0) L 07/23/17 07:55 Amylase 79 U/L (30-110) 07/22/17 13:13 Lipase 75 U/L (23-300) 07/22/17 13:13 Urine Color Yellow 07/22/17 14:02 Urine Appearance Clear (Clear) 07/22/17 14:02 Urine pH 5.5 (5.0-8.0) 07/22/17 14:02 Ur Specific [place] 1.016 (1.001-1.035) 07/22/17 14:02 Urine Protein Trace (Negative) H 07/22/17 14:02 Urine Glucose (UA) Negative (Negative) 07/22/17 14:02 Urine Ketones Negative (Negative) 07/22/17 14:02 Urine Blood Negative (Negative) 07/22/17 14:02 Urine Nitrite Negative (Negative) 07/22/17 14:02 Urine Bilirubin Negative (Negative) 07/22/17 14:02 Urine Urobilinogen <2.0 mg/dL (<2.0) 07/22/17 14:02 Ur Leukocyte Esterase Negative (Negative) 07/22/17 14:02 Microbiology 07/22/17 13:13 Blood Blood Culture - Preliminary No Growth after 96 hours Assessment and Plan (1) Multifocal pneumonia Narrative/Plan: 47-year-old male who has a history of the multilayer organ transplant silver years ago with hospitalist earlier this year with significant pleuritic chest pain. He was treated and then later on with ongoing symptoms was taken for bronchoscopy. MRSA was positive from his sputum is received treatment with appears to be with a course of outpatient intravenous antibiotic therapy with vancomycin. Nephrology is now following and have requested no further vancomycin therapy given his worsening of his baseline chronic kidney disease. Pharmacy does have Tefloro available which can be utilized at this time for the failure of his vancomycin therapy. With his many medications he is not a Zyvox candidate and since pneumonia daptomycin would not be effective. It is not noted with recent bronchoscopy that any other pathogens were found, however I was not able to determine if pneumocystis testing was performed. If the patient fails to respond to therapy targeted against MRSA may need further bronchoscopy with specimens specifically looking for pneumocystis and other pathogens. Given his level of immunocompromise will continue with gram-negative coverage and Merrem will be utilized in conjunction with the Ceftaroline. Cultures are in process may further help direct therapy. His abdominal distention seems to be quite subjective at the moment and even better than during his last stay. The significant leukocytosis at admission seems to be improving and shall be monitored. 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 Does have mild swelling of the arm fortunately is not uncomfortable. 07/24/2017 the patient is feeling Some what better and is tolerating the antibiotic therapy well of Merrem and Ceftaroline. Cultures are negative so far.leukocytosis is improving and no further fever is noted.Patient is being followed by multiple consultants and seems to be having some improvement. Creatinine is down to 1.30 also. We'll plan continue current antibiotic therapy and will have to determine best possible option for antibiotics at discharge given his multiple medications including his immunosuppressive regimen. 07/25/2017 reveals the patient to have further improvement today, his abdominal pain is definitely improved. His appetite is improved and is eating a more normal diet. His shortness of breath is improving. He is having no significant fevers or chills. He is tolerating heparin well without evidence of bleeding. He's been seen by pulmonary critical care and general surgery. No plans for surgical intervention. As he improves we'll have to consider options for antibiotic therapy at the time of discharge. Profound iron deficiency has been found is receiving intravenous iron as per nephrology. There is a concern that with his transplant he is not absorbing iron well. Patient may need to be on a outpatient program for iron supplementation. 07/26/2017 patient has further improvement. His been evaluated and is ready for discharge to home as per the surgeon and primary team. Patient is doing better. Eating a regular diet. His renal function is improved. He is receiving his last dose of intravenous iron and that will be followed up in the outpatient setting and that there is concerned that he is just simply not observing iron well after his multiorgan transplant. The patient has had recent sputum cultures that have evidence of MRSA and with his transplant status antibiotic therapy without be changed to clindamycin to complete his course of therapy at discharge, sent to his pharmacy and will follow-up in the office if he has any further issues. Status: Acute Code(s): J18.9 - PNEUMONIA, UNSPECIFIED ORGANISM SNOMED Code(s ): 569677603 (2) Subtherapeutic anticoagulation Status: Acute Code(s): Z51.81 - ENCOUNTER FOR THERAPEUTIC DRUG LEVEL MONITORING; Z79.01 - ORTHOPEDIC SHOES SALESPERSON (CURRENT) USE OF ANTICOAGULANTS SNOMED Code(s) : 75578128 (3) History of intestine transplant Status: Acute Code(s): Z94.82 - INTESTINE TRANSPLANT STATUS SNOMED Code(s): 536041106 (4) Encounter for aftercare following multiple organ transplant Status: Acute Code(s): Z48.288 - ENCOUNTER FOR AFTERCARE FOLLOWING MULTIPLE ORGAN TRANSPLANT SNOMED Code(s): 337213960
--- NOTE | 2017-08-02 10:36 | CDI ---
Documentation Clarification Form Date: 08/02/17 From: Lesa Barahona Admit Date: 07/22/2017 5:15:00 PM Patient Name: Adrian Dubon Visit Number: [id number] Discharge Date: 07/26/17 ATTENTION: The Clinical Documentation Specialists (CDI) and [facility] Coding Staff appreciate your assistance in clarifying documentation. Please respond to the clarification below the line at the bottom and electronically sign. The CDI & [facility] Coding staff will review the response and follow-up if needed. Please note: Queries are made part of the Legal Health Record. If you have any questions, please contact the author of this message via ITS. Dr. Angel Swanson Your patient has the documented diagnosis of chronic gastroparesis and patient has a stomach transplant. A relationship between diagnoses cannot be assumed unless documented as such by the attending physician. In order to capture the severity of condition; please document the relationship, if any, between these diagnoses. History/Risk Factors:patient has a four organ transplant history Please clarify and document your clinical opinion if any relationship (due to, caused by, secondary to) exists between these two diagnoses. Chronic gastroparesis Chronic gastroparesis due to stomach transplant Other explanation of clinical findings (please specify) Unable to determine (no explanation for clinical findings) unable to determine MTDD
--- NOTE | 2017-08-02 10:44 | CDI ---
Last Revision, March 2017 Documentation Clarification Form Date: 08/02/17 From: Lesa Barahona Admit Date: 07/22/2017 5:15:00 PM Patient Name: Adrian Dubon Visit Number: [id number] Discharge Date: 07/26/17 ATTENTION: The Clinical Documentation Specialists (CDI) and [facility] Coding Staff appreciate your assistance in clarifying documentation. Please respond to the clarification below the line at the bottom and electronically sign. The CDI & [facility] Coding staff will review the response and follow-up if needed. Please note: Queries are made part of the Legal Health Record. If you have any questions, please contact the author of this message via ITS. Dr. Angel Swanson Your patient has the documented diagnosis of intestine transplant and ileus vs SBO. History/Risk Factors: intestine transplant 07/26 Progress Note (Dr. Duarte) , the patient has abdominal pain of unclear etiology. "Questionable findings of either trapped dependent air...or mild colonic pneumatosis... Abdominal x-ray today reveals evidence of ileus versus partial obstruction. The patient had a follow-up CT scan...that did not reveal any evidence of free air". Please clarify and document your clinical opinion if ileus\\SOB ileus\\SOB ruled out Other explanation of clinical findings (please specify) Unable to determine (no explanation for clinical findings) unable to determine-see surgery documentation MTDD
--- NOTE | 2017-08-16 20:29 | HP ---
HISTORY AND PHYSICAL ADDENDUM: DATE OF ADMISSION: 07/22/2017. DATE OF SERVICE: 07/23/2017 MMODL / IJN: [id number] /
--- NOTE | 2017-08-17 08:03 | DS ---
DISCHARGE SUMMARY ADDENDUM: To discharge summary on Adrian Dubon DATE OF ADMISSION: 07/22/17 DISCHARGE DATE: July 26, 2017. EXAMINATION: Respiratory effort normal. Lungs slightly decreased breath sounds. ABDOMEN: Soft, nontender. Liver and spleen not palpable. Psychiatry: Alert and oriented times three. Mood and affect normal. MMODL / IJN: [id number] /
--- NOTE | 2017-08-19 11:32 | CDI ---
Last Revision, March 2017 Documentation Clarification Form Date: 08/19/2017 From: Lesa Barahona Admit Date: 07/22/2017 5:15:00 PM Patient Name: Adrian Dubon Visit Number: [id number] Discharge Date:07/26/17 ATTENTION: The Clinical Documentation Specialists (CDI) and [facility] Coding Staff appreciate your assistance in clarifying documentation. Please respond to the clarification below the line at the bottom and electronically sign. The CDI & [facility] Coding staff will review the response and follow-up if needed. Please note: Queries are made part of the Legal Health Record. If you have any questions, please contact the author of this message via ITS. Dr. Angel Swanson Your patient has the documented diagnosis of intestine transplant and ileus vs SBO. History/Risk Factors: intestine transplant 07/26 Progress Note (Dr. Duarte) , the patient has abdominal pain of unclear etiology. "Questionable findings of either trapped dependent air...or mild colonic pneumatosis... Abdominal x-ray today reveals evidence of ileus versus partial obstruction. The patient had a follow-up CT scan...that did not reveal any evidence of free air". Please clarify and document your clinical opinion if Ileus SOB Ileus ruled out SOB ruled out Other explanation of clinical findings (please specify) Unable to determine (no explanation for clinical findings) No SBO No Ileus MTDD
--- NOTE | 2017-08-28 16:20 | CDI ---
Last Revision, March 2017 Documentation Clarification Form Date: 08/28/17 From: Lesa Barahona Admit Date: 07/22/2017 5:15:00 PM Patient Name: Adrian Dubon Visit Number: [id number] Discharge Date:07/26/17 ATTENTION: The Clinical Documentation Specialists (CDI) and [facility] Coding Staff appreciate your assistance in clarifying documentation. Please respond to the clarification below the line at the bottom and electronically sign. The CDI & [facility] Coding staff will review the response and follow-up if needed. Please note: Queries are made part of the Legal Health Record. If you have any questions, please contact the author of this message via ITS. Dr. Angel Swanson Your patient has the documented diagnosis of intestine transplant and ileus vs SBO. History/Risk Factors: intestine transplant 07/26 Progress Note (Dr. Duarte) , the patient has abdominal pain of unclear etiology. "Questionable findings of either trapped dependent air...or mild colonic pneumatosis... Abdominal x-ray today reveals evidence of ileus versus partial obstruction. The patient had a follow-up CT scan...that did not reveal any evidence of free air". Please clarify and document your clinical opinion if Ileus SBO Ileus ruled out SBO ruled out Other explanation of clinical findings (please specify) Unable to determine (no explanation for clinical findings) no ileus and no SBO MTDD
== END 2017-07-26 18:25 | disposition home or self-care (01) | DRG 178 ==
LOC: EC 12:07 → 6SEL 17:15
PROVIDERS: ADMIT Hospitalist; ATTEND Hospitalist
DX: J15.6 Pneumonia due to other Gram-negative bacteria (principal); N17.9 Acute kidney failure, unspecified; Z94.82 Intestine transplant status; E27.40 Unspecified adrenocortical insufficiency; I82.B22 Chronic embolism and thrombosis of left subclavian vein; I82.A22 Chronic embolism and thrombosis of left axillary vein; I82.291 Chronic embolism and thrombosis of other thoracic veins; I82.C22 Chronic embolism and thrombosis of left internal jugular vein; K86.1 Other chronic pancreatitis; T86.898 Other complications of other transplanted tissue; I27.21 Secondary pulmonary arterial hypertension; E11.22 Type 2 diabetes mellitus with diabetic chronic kidney disease; N18.3 Chronic kidney disease, stage 3 (moderate); K31.84 Gastroparesis; K29.70 Gastritis, unspecified, without bleeding; F41.9 Anxiety disorder, unspecified; F32.9 Major depressive disorder, single episode, unspecified; D50.9 Iron deficiency anemia, unspecified; E11.43 Type 2 diabetes mellitus with diabetic autonomic (poly)neuropathy; I48.0 Paroxysmal atrial fibrillation; K21.9 Gastro-esophageal reflux disease without esophagitis; J43.9 Emphysema, unspecified; I71.2 Thoracic aortic aneurysm, without rupture; G47.33 Obstructive sleep apnea (adult) (pediatric); J39.8 Other specified diseases of upper respiratory tract; R14.0 Abdominal distension (gaseous); M79.89 Other specified soft tissue disorders; D63.1 Anemia in chronic kidney disease; T45.1X5S Adverse effect of antineoplastic and immunosuppressive drugs, sequela; S12.8XXS Fracture of other parts of neck, sequela; I12.9 Hypertensive chronic kidney disease with stage 1 through stage 4 chronic kidney disease, or unspecified chronic kidney disease; G89.29 Other chronic pain; R79.1 Abnormal coagulation profile; Z88.6 Allergy status to analgesic agent; Z88.8 Allergy status to other drugs, medicaments and biological substances; Z79.899 Other long term (current) drug therapy; Z79.01 Long term (current) use of anticoagulants; Z79.891 Long term (current) use of opiate analgesic; Z95.2 Presence of prosthetic heart valve; Z86.39 Personal history of other endocrine, nutritional and metabolic disease; Z79.51 Long term (current) use of inhaled steroids; Z86.14 Personal history of Methicillin resistant Staphylococcus aureus infection; Z90.89 Acquired absence of other organs; Z90.81 Acquired absence of spleen; Z51.81 Encounter for therapeutic drug level monitoring; Z87.891 Personal history of nicotine dependence; Z87.738 Personal history of other specified (corrected) congenital malformations of digestive system; Z79.52 Long term (current) use of systemic steroids; Z88.5 Allergy status to narcotic agent
CPT/HCPCS: 36415; 71045; 71046; 71275; 74018; 74019; 74176; 74177; 80048; 80053; 81003; 82150; 82550; 82553; 83540; 83550; 83605; 83690; 84484; 85025; 85610; 85730; 87040; 93005; 93306; 94640; 96361; 96365; 96366; 96368; 96375; 96376; 99285

== ENCOUNTER 2017-08-18 16:07 | Inpatient (IN) | payer MEDICARE, BC, OTHER ==
[2017-08-18] MEDS ORDERED: RX INFO: IV CONTRAST WAS GIVEN 1 EACH MISC MISCELLANE PRN (17:23)
[2017-08-18] MEDS ORDERED: SODIUM CHLORIDE 0.9% 1,000 ML IV STA (17:23)
[2017-08-18] MEDS ORDERED: MORPHINE SULFATE 4 MG/0.8 ML SYRINGE (INJ) IVP STA (17:24)
[2017-08-18] MEDS ORDERED: diphenhydrAMINE 50 MG/ML 1 ML VIAL IVP STA (17:24)
--- NOTE | 2017-08-18 17:32 | ED ---
Abdominal Pain HPI - General Chief Complaint: Abdominal Pain Stated Complaint: Abd Pain Time Seen by Provider: 08/18/17 17:13 Source: patient, RN notes reviewed Mode of arrival: ambulatory Limitations: no limitations - History of Present Illness Initial Comments: This is a 47-year-old male who presents to the emergency department with chief complaint of abdominal pain. Patient has a history of stomach, small intestines , pancreas and duodenum transplant in 2002 for defect. Patient states that he had a pseudoabdominal obstruction and gastroparesis. He states that he did well for approximately 13 years and then started developing abdominal pains. He states that he was seen here a couple weeks ago with abdominal pain and was admitted. He states that he does have a follow-up appointment with his surgeon at the [facility] on August 28. Patient states that over the past month his abdominal pain has worsened. He states that at first the abdominal pain would come on every time he eats but now it is present at all times. He describes the pain as feeling "full of air" and "feeling like a balloon." He denies fevers or chills, nausea or vomiting, chest pain or shortness of breath. He does state that he has chronic diarrhea for which he takes methadone to slow down his intestines. Patient does state he has an allergy to morphine but was given it last time while in the emergency department as well as Benadryl and he had no adverse reaction. - Related Data Home Medications Medication Instructions Recorded Confirmed Calcium Citrate/Vitamin D3 1 tab PO BID 09/02/13 07/22/17 [Calcium Citrate - Vit D3 Tab] Ferrous Gluconate 325 mg PO BID 09/02/13 07/22/17 Magnesium Gluconate [Magonate] 500 mg PO BID 09/02/13 07/22/17 Multivitamin [Men's Multi-Vitamin] 1 tab PO QAM 09/02/13 07/22/17 Sertraline [Zoloft] 150 mg PO QAM 09/02/13 07/22/17 Tacrolimus [Prograf] 1 mg PO 09/02/13 07/22/17 Tacrolimus [Prograf] 2 mg PO QAM 09/02/13 07/22/17 Cholecalciferol (Vitamin D3) 10,000 unit PO QAM 09/22/15 07/22/17 [Vitamin D3] Hydrocortisone 10 mg PO 09/22/15 07/22/17 Kxoowx-Vennfiqu-Lbturfi [Zenpep 10] 1 cap PO BID 09/22/15 07/22/17 Sulfamethoxazole/Trimethoprim 0.5 tab PO MOWEFR 08/02/16 07/22/17 [Bactrim DS 800-160 mg] Ipratropium [place] [Atrovent Hfa] 2 puff INHALATION RT-BID 09/03/16 07/22/17 Albuterol Sulfate [Proair Hfa] 1 - 2 puff INHALATION RT-Q6H PRN 12/19/16 Fludrocortisone [Florinef] 0.1 mg PO DAILY 12/19/16 07/22/17 traZODone HCL 100 mg PO HS 12/19/16 07/22/17 Gabapentin [Neurontin] 300 mg PO TID 03/23/17 07/22/17 HYDROcodone/APAP 10-325MG [[place] 1 tab PO Q4HR PRN 03/23/17 07/22/17 10-325] Hydrocortisone [Cortef] 20 mg PO QAM 03/23/17 07/22/17 Methadone HCl [Dolophine HCl] 5 mg PO HS 03/23/17 07/22/17 Sucralfate [Carafate] 1 gm PO BID 03/23/17 07/22/17 Budesonide/Formoterol Fumarate 2 puff INHALATION RT-BID 05/17/17 07/22/17 [Symbicort 160-4.5 Mcg Inhaler] Methadone [Dolophine] 10 mg PO QAM 05/17/17 07/22/17 Metoprolol Succinate [Toprol XL] 25 mg PO DAILY 05/17/17 07/22/17 Pyridoxine [Vitamin B-6] 50 mg PO DAILY 05/17/17 07/22/17 Fluticasone Nasal [place] [Flonase 2 spr EA NOSTRIL DAILY PRN 07/22/17 07/22/17 Nasal [place]] Warfarin [Coumadin] 5 mg PO HS 07/22/17 07/22/17 QUEtiapine [SEROquel] 25 mg PO BID 07/23/17 07/23/17 Previous Rx's Medication Instructions Recorded Enoxaparin [Lovenox] 100 mg SQ Q12H #14 syr 07/26/17 Nicotine 14Mg/24Hr Patch [Habitrol] 1 patch TRANSDERM Q24H #30 patch 07/26/17 Allergies Allergy/AdvReac Type Severity Reaction Status Date / Time aspirin Allergy GI Verified 08/18/17 16:38 BLEEDING , ABDOMINAL PAIN heparin AdvReac abdominal Verified 08/18/17 16:38 pain , GI bleeding ketorolac tromethamine AdvReac migraines Verified 08/18/17 16:38 [From Toradol] morphine AdvReac Itching Verified 08/18/17 16:38 Review of Systems ROS Statement: Those systems with pertinent positive or pertinent negative responses have been documented in the HPI. ROS Other: All systems not noted in ROS Statement are negative. 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 History of Any Multi-Drug Resistant Organisms: MRSA Date of last positivie culture/infection: 05/29/17 MDRO Source:: BRONCH WASH Additional Past Surgical History / Comment(s): Multivisceral organ transplant including bowel, pancreas, and stomach at [facility], left knee arthrotomy, EGD, colonoscopy, ERCP with insertion of a pancreatic duct stent Past Anesthesia/Blood Transfusion Reactions: No Reported Reaction Additional Past Anesthesia/Blood Transfusion Reaction / Comment(s): STATES R/T TO MULTIPLE SX HE REQUIRES A LOT OF MEDICATION for anesthesia. He has had multiple blood transfusions without reaction. Past Psychological History: Anxiety, Depression Smoking Status: Former smoker Past Alcohol Use History: Rare Past Drug Use History: None Reported - Past Family History Mother History Unknown: Yes Additional Family Medical History / Comment(s): pt is adopted, does not know any hx Father History Unknown: Yes Additional Family Medical History / Comment(s): pt is adopted, does not know any hx General Exam - General Exam Comments Initial Comments: General: Awake and alert, well-developed; in no apparent distress. HEENT: Head atraumatic, normocephalic. Pupils are equal, round and reactive to light. Extraocular movements intact. Oropharynx dry without erythema or exudate. Neck: Supple. Normal ROM. Cardiovascular: Regular rate and rhythm. No murmurs, rubs or gallops. Chest symmetrical. Respiratory: Lungs clear to auscultation bilaterally. No wheezes, rales or rhonchi. Normal respiratory effort with no use of accessory muscles. Abdomen: Tenderness on palpation of the epigastrium and left upper quadrant. Mildly distended. Multiple abdominal surgical scars noted. No rigidity, rebound or guarding. Normal bowel sounds in all 4 quadrants. Musculoskeletal: Normal ROM, no tenderness bilateral upper and lower extremities. Skin: Pale, warm and dry without rashes or lesions. Neurological: Alert and oriented x3. CN II-XII grossly intact. Speech is fluent and answers are appropriate. No focal neuro deficits. Psychiatric: Normal mood and affect. No overt signs of depression or anxiety noted. Limitations: no limitations Course Vital Signs 08/18/17 08/18/17 16:36 18:47 Temperature 97.6 F Pulse Rate 96 82 Respiratory 18 16 Rate Blood Pressure 104/45 135/71 O2 Sat by Pulse 99 98 Oximetry Medical Decision Making - Medical Decision Making This is a 47-year-old male who presents to the emergency department with chief complaint of abdominal pain. Patient has an extensive abdominal surgical history with stomach, small intestine, pancreas and duodenal transplant in 2002. CBC revealed a white blood cell, 16.8 with left shift at 2.4. Hemoglobin is 7.3 however review of previous laboratories this is consistent. Coags are elevated with an INR at 4.4 and PTT of 40.0. CMP revealed a BUN of 21 and a creatinine of 1.36. This appears consistent review of previous studies. UA is within normal limits. Patient given IV fluids and pain medication while in the emergency department. He states he has had no relief of his abdominal pain. Patient will be admitted to Dr. Carrion's group for intractable abdominal pain. Vital signs are stable and patient is in no acute distress. He is in agreement with admission and voices understanding. All questions answered. - Lab Data Result diagrams: 08/18/17 17:35 08/18/17 17:35 Lab Results 08/18/17 08/18/17 08/18/17 Range/Units 17:35 17:35 17:35 WBC 16.8 H (3.8-10.6) k/uL RBC 3.03 L (4.30-5.90) m/uL Hgb 7.3 L (13.0-17.5) gm/dL Hct 25.3 L (39.0-53.0) % MCV 83.5 (80.0-100.0) fL MCH 24.0 L (25.0-35.0) pg MCHC 28.7 L (31.0-37.0) g/dL RDW 18.0 H (11.5-15.5) % Plt Count 239 (150-450) k/uL Neutrophils % (Manual) 80 % Lymphocytes % (Manual) 15 % Monocytes % (Manual) 3 % Eosinophils % (Manual) 2 % Neutrophils # (Manual) 13.44 H (1.3-7.7) k/uL Lymphocytes # (Manual) 2.52 (1.0-4.8) k/uL Monocytes # (Manual) 0.50 (0-1.0) k/uL Eosinophils # (Manual) 0.34 (0-0.7) k/uL Nucleated RBCs 0 (0-0) /100 WBC Manual Slide Review Performed Large Platelets Present Polychromasia Present Hypochromasia Marked Poikilocytosis Slight Poikilocytosis (manual Present Anisocytosis Slight Anisocytosis (manual) Present Target Cells Present PT 40.0 H (9.0-12.0) sec INR 4.4 H (<1.2) APTT 45.9 H (22.0-30.0) sec Sodium 140 (137-145) mmol/L Potassium 4.0 (3.5-5.1) mmol/L Chloride 102 (98-107) mmol/L Carbon Dioxide 28 (22-30) mmol/L Anion Gap 10 mmol/L BUN 21 H (9-20) mg/dL Creatinine 1.36 H (0.66-1.25) mg/dL Est GFR (CKD-EPI)AfAm 70 (>60 ml/min/1.73 sqM) Est GFR (CKD-EPI)NonAf 61 (>60 ml/min/1.73 sqM) Glucose 94 (74-99) mg/dL Calcium 9.2 (8.4-10.2) mg/dL Total Bilirubin 0.4 (0.2-1.3) mg/dL AST 76 H (17-59) U/L ALT 17 L (21-72) U/L Alkaline Phosphatase 80 (38-126) U/L Total Protein 6.0 L (6.3-8.2) g/dL Albumin 3.7 (3.5-5.0) g/dL Amylase 81 (30-110) U/L Lipase 57 (23-300) U/L Urine Color Urine Appearance (Clear) Urine pH (5.0-8.0) Ur Specific [place] (1.001-1.035) Urine Protein (Negative) Urine Glucose (UA) (Negative) Urine Ketones (Negative) Urine Blood (Negative) Urine Nitrite (Negative) Urine Bilirubin (Negative) Urine Urobilinogen (<2.0) mg/dL Ur Leukocyte Esterase (Negative) 08/18/17 Range/Units 17:35 WBC (3.8-10.6) k/uL RBC (4.30-5.90) m/uL Hgb (13.0-17.5) gm/dL Hct (39.0-53.0) % MCV (80.0-100.0) fL MCH (25.0-35.0) pg MCHC (31.0-37.0) g/dL RDW (11.5-15.5) % Plt Count (150-450) k/uL Neutrophils % (Manual) % Lymphocytes % (Manual) % Monocytes % (Manual) % Eosinophils % (Manual) % Neutrophils # (Manual) (1.3-7.7) k/uL Lymphocytes # (Manual) (1.0-4.8) k/uL Monocytes # (Manual) (0-1.0) k/uL Eosinophils # (Manual) (0-0.7) k/uL Nucleated RBCs (0-0) /100 WBC Manual Slide Review Large Platelets Polychromasia Hypochromasia Poikilocytosis Poikilocytosis (manual Anisocytosis Anisocytosis (manual) Target Cells PT (9.0-12.0) sec INR (<1.2) APTT (22.0-30.0) sec Sodium (137-145) mmol/L Potassium (3.5-5.1) mmol/L Chloride (98-107) mmol/L Carbon Dioxide (22-30) mmol/L Anion Gap mmol/L BUN (9-20) mg/dL Creatinine (0.66-1.25) mg/dL Est GFR (CKD-EPI)AfAm (>60 ml/min/1.73 sqM) Est GFR (CKD-EPI)NonAf (>60 ml/min/1.73 sqM) Glucose (74-99) mg/dL Calcium (8.4-10.2) mg/dL Total Bilirubin (0.2-1.3) mg/dL AST (17-59) U/L ALT (21-72) U/L Alkaline Phosphatase (38-126) U/L Total Protein (6.3-8.2) g/dL Albumin (3.5-5.0) g/dL Amylase (30-110) U/L Lipase (23-300) U/L Urine Color Light Yellow Urine Appearance Clear (Clear) Urine pH 5.0 (5.0-8.0) Ur Specific [place] 1.006 (1.001-1.035) Urine Protein Negative (Negative) Urine Glucose (UA) Negative (Negative) Urine Ketones Negative (Negative) Urine Blood Negative (Negative) Urine Nitrite Negative (Negative) Urine Bilirubin Negative (Negative) Urine Urobilinogen <2.0 (<2.0) mg/dL Ur Leukocyte Esterase Negative (Negative) - Radiology Data Radiology results: report reviewed Computed tomography scan abdomen and pelvis with contrast impression: Inspissated stool is noted in a loop of bowel in the right lower quadrant. Disposition Clinical Impression: Intractable abdominal pain, Renal failure Disposition: ADMITTED IP TO THIS [facility] Condition: Stable Is patient prescribed a controlled substance at d/c from ED?: No Referrals: Ras Zhao MD [Primary Care Provider] - 1-2 days Time of Disposition: 20:13
[2017-08-18 17:44] LABS: Appearance,Urine Clear (Clear); Bilirubin,Urine Negative (Negative); Blood,Urine Negative (Negative); Color,Urine Light Yellow; Glucose,Urine (UA) Negative (Negative); Ketones,Urine Negative (Negative); Leukocyte Esterase,Urine Negative (Negative); Nitrite,Urine Negative (Negative); Protein,Urine Negative (Negative); Specific Gravity,Urine 1.006 (1.001-1.035); Urobilinogen,Urine <2.0 mg/dL (<2.0)
[2017-08-18 17:51] LABS: INR 4.4 (<1.2); Partial Thromboplastin Time 45.9 sec (22.0-30.0)
[2017-08-18 17:54] LABS: Anisocytosis Slight; HCT 25.3 % (39.0-53.0); HGB 7.3 gm/dL (13.0-17.5); Hypochromasia Marked; MCHC 28.7 g/dL (31.0-37.0); MCV 83.5 fL (80.0-100.0); Mean Platelet Volume 10.6; Platelet Count 239 k/uL (150-450); Poikilocytosis Slight; RBC 3.03 m/uL (4.30-5.90); WBC 16.8 k/uL (3.8-10.6)
[2017-08-18 17:58] LABS: Albumin 3.7 g/dL (3.5-5.0); Calcium 9.2 mg/dL (8.4-10.2); Total Bilirubin 0.4 mg/dL (0.2-1.3)
[2017-08-18 18:22] LABS: Anisocytosis (M) Present; Eosinophils # (M) 0.34 k/uL (0-0.7); Large Platelets Present; Lymphocytes # (M) 2.52 k/uL (1.0-4.8); Neutrophils # (M) 13.44 k/uL (1.3-7.7); Neutrophils % (M) 80 %; Nucleated Red Blood Cells 0 /100 WBC (0-0); Polychromasia Present; Total Cells Counted 100
[2017-08-18 18:23] LABS: Poikilocytosis (M) Present; Target Cells Present
--- NOTE | 2017-08-18 19:04 | CT ---
EXAMINATION TYPE: CT abdomen pelvis w con DATE OF EXAM: 08/18/2017 COMPARISON: July 25, 2017 HISTORY: Patient complains of generalized abdominal pain and chronic diarrhea. History of small bowel and pancreas transplant. CT DLP: 853.4 mGycm Automated exposure control for dose reduction was used. TECHNIQUE: Helical acquisition of images was performed from the lung bases through the pelvis. CONTRAST: Performed without Oral Contrast and with IV Contrast, patient injected with 80 mL of Isovue 300. FINDINGS: Lung bases are clear. There is no pleural pericardial effusion. The liver is unremarkable. The spleen is not seen. The adrenal glands are unremarkable. Mild hydronep hrosis is noted in the right kidney with a mildly dilated right ureter. There is no evidence of a bow el obstruction. However there is a large amount of inspissated stool noted in several loops of bowel in the right mid and lower abdomen. This is a new finding since the previous study. There is no free intraperitoneal air or free fluid. No mesenteric or retroperitoneal lymphadenopathy is noted. Findings consistent with prior bowel transplantation are noted. The aorta is not dilated. The urinary bladder and prostate are unremarkable. No osteolytic or osteoblastic lesions are identified. IMPRESSION: Inspissated stool is noted in a loop of bowel in the right lower quadrant.
[2017-08-18] MEDS ORDERED: Acetaminophen-Codeine 300-30mg TAB PO PRN (20:13)
[2017-08-18] MEDS ORDERED: NALOXONE 0.4 MG/ML 1 ML VIAL IV PRN (20:13)
[2017-08-18] MEDS ORDERED: ACETAMINOPHEN TAB 325 MG TAB PO PRN (20:13)
[2017-08-18] MEDS ORDERED: ONDANSETRON 4 MG/2 ML VIAL IVP PRN (20:13)
[2017-08-18] MEDS: MORPHINE SULFATE 4 MG/0.8 ML SYRINGE (INJ) IV PRN (21:22)
[2017-08-18] MEDS ORDERED: ALBUTEROL NEBULIZED 2.5 MG/3 ML INHALATION PRN (23:18)
[2017-08-19] MEDS: diphenhydrAMINE 50 MG/ML 1 ML VIAL IVP PRN ×3 (01:43→19:18)
[2017-08-19] MEDS: MORPHINE SULFATE 4 MG/0.8 ML SYRINGE (INJ) IV PRN ×3 (01:43→11:02)
[2017-08-19] MEDS: SUCRALFATE 1 GM TAB PO SCH ×3 (01:45→21:37)
[2017-08-19] MEDS: QUEtiapine 25 MG TAB PO SCH ×3 (01:45→21:37)
[2017-08-19] MEDS: GABAPENTIN 300 MG CAP PO SCH ×4 (01:45→21:37)
[2017-08-19] MEDS: HYDROCORTISONE 10 MG TAB PO SCH ×2 (01:45→21:37)
[2017-08-19] MEDS: TACROLIMUS 1 MG CAP PO SCH ×2 (01:46→21:37)
[2017-08-19] MEDS: traZODone HCL 100 MG TAB PO SCH ×2 (01:46→21:37)
[2017-08-19] MEDS: METHADONE 5 MG TAB PO SCH ×2 (02:01→21:37)
[2017-08-19] MEDS: SODIUM CHLORIDE 0.9% 1,000 ML IV SCH ×3 (02:08→20:51)
[2017-08-19 07:30] VITALS: RESP 16
[2017-08-19] MEDS: SYMBICORT 160-4.5 MCG INHALER INHALATION SCH ×2 (07:30→21:15)
[2017-08-19] MEDS: FERROUS SULFATE 325 MG TAB PO SCH (11:02)
--- NOTE | 2017-08-19 11:17 | P.HPIM ---
History of Present Illness 47-year-old male who presents to the emergency department with chief complaint of abdominal pain. 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 Patient states that he had a pseudoabdominal obstruction and gastroparesis. He states that he did well for approximately 13 years and then started developing abdominal pains. He states that he was seen here a couple weeks ago with abdominal pain and was admitted. He states that he does have a follow-up appointment with his surgeon at the [facility] on August 28. Patient states that over the past month his abdominal pain has worsened. He states that at first the abdominal pain would come on every time he eats but now it is present at all times. He describes the pain as feeling "full of air" and "feeling like a balloon." His pain is 9/ 10 in severity He denies fevers or chills, nausea or vomiting, chest pain or shortness of breath. He does state that he has chronic diarrhea for which he takes methadone to slow down his intestines. It was noted that patient is ALLERGIC to morphine but patient didn't have an ALLERGIC reaction here and is receiving morphine at this time. Patient does have chronic diarrhea still having some diarrhea patient is on Bactrim as per the transplant physician. This is being held temporarily right now because of acute renal dysfunction which is probably due to decreased secretion of creatinine in the urine. Patient is found to have significant amount of stool in the right colon patient may be having postobstructive diarrhea, patient was evaluated by multiple surgeons in the past and this hospital and patient at the time was requested to go back to [facility] in [facility]. Patient is wishing to see his regular physicians rather than me although the covering doctor for [facility] normally sees him in the hospital. I'll get the opinion from surgery and gastroenterology regarding his management of abdominal pain because of the complexity and history of the patient. Patient just wanted his pain to be managed and wanted to be discharged after that. Review of Systems REVIEW OF SYSTEMS: CONSTITUTIONAL: No fever, no malaise, no fatigue. HEENT: No recent visual problems or hearing problems. Denied any sore throat. CARDIOVASCULAR: No chest pain, orthopnea, PND, no palpitations, no syncope. PULMONARY: No shortness of breath, no cough, no hemoptysis. GASTROINTESTINAL: As mentioned in HPI NEUROLOGICAL: No headaches, no weakness, no numbness. HEMATOLOGICAL: Denies any bleeding or petechiae. GENITOURINARY: Denies any burning micturition, frequency, or urgency. MUSCULOSKELETAL/RHEUMATOLOGICAL: Denies any joint pain, swelling, or any muscle pain. ENDOCRINE: Denies any polyuria or polydipsia. The rest of the 14-point review of systems is negative. Past Medical History Past Medical History: Atrial Fibrillation, COPD, Deep Vein Thrombosis (DVT), GERD/Reflux, Pneumonia, Sleep Apnea/CPAP/BIPAP Additional Past Medical History / Comment(s): Pt had recent admission to [facility] with pneumonia. 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 History of Any Multi-Drug Resistant Organisms: MRSA Date of last positivie culture/infection: 05/29/17 MDRO Source:: BRONCH WASH Additional Past Surgical History / Comment(s): Multivisceral organ transplant including bowel, pancreas, and stomach at [facility]-follows thru [facility], left knee arthrotomy, EGD, colonoscopy, ERCP with insertion of a pancreatic duct stent Past Anesthesia/Blood Transfusion Reactions: No Reported Reaction Additional Past Anesthesia/Blood Transfusion Reaction / Comment(s): STATES R/T TO MULTIPLE SX HE REQUIRES A LOT OF MEDICATION for anesthesia. He has had multiple blood transfusions without reaction. Smoking Status: Former smoker - Past Family History Mother History Unknown: Yes Additional Family Medical History / Comment(s): pt is adopted, does not know any hx Father History Unknown: Yes Additional Family Medical History / Comment(s): pt is adopted, does not know any hx Medications and Allergies Home Medications Medication Instructions Recorded Confirmed Type Calcium Citrate/Vitamin D3 1 tab PO BID 09/02/13 08/19/17 History [Calcium Citrate - Vit D3 Tab] Ferrous Gluconate 325 mg PO BID 09/02/13 08/19/17 History Magnesium Gluconate [Magonate] 500 mg PO BID 09/02/13 08/19/17 History Multivitamin [Men's Multi-Vitamin] 1 tab PO QAM 09/02/13 08/19/17 History Sertraline [Zoloft] 150 mg PO QAM 09/02/13 08/19/17 History Tacrolimus [Prograf] 1 mg PO HS 09/02/13 08/19/17 History Tacrolimus [Prograf] 2 mg PO QAM 09/02/13 08/19/17 History Cholecalciferol (Vitamin D3) 10,000 unit PO QAM 09/22/15 08/19/17 History [Vitamin D3] Hydrocortisone 10 mg PO HS 09/22/15 08/19/17 History Qzefcy-Mexicrse-Mtrwpeg [Zenpep 10] 1 cap PO BID 09/22/15 08/19/17 History Sulfamethoxazole/Trimethoprim 0.5 tab PO MOWEFR 08/02/16 08/19/17 History [Bactrim DS 800-160 mg] Ipratropium [place] [Atrovent Hfa] 2 puff INHALATION RT-BID 09/03/16 08/19/17 History Albuterol Sulfate [Proair Hfa] 1 - 2 puff INHALATION RT-Q6H PRN 12/19/16 History Fludrocortisone [Florinef] 0.1 mg PO DAILY 12/19/16 08/19/17 History traZODone HCL 100 mg PO HS 12/19/16 08/19/17 History Gabapentin [Neurontin] 300 mg PO TID 03/23/17 08/19/17 History HYDROcodone/APAP 10-325MG [[place] 1 tab PO Q4HR PRN 03/23/17 08/19/17 History 10-325] Hydrocortisone [Cortef] 20 mg PO QAM 03/23/17 08/19/17 History Methadone HCl [Dolophine HCl] 5 mg PO HS 03/23/17 08/19/17 History Sucralfate [Carafate] 1 gm PO BID 03/23/17 08/19/17 History Budesonide/Formoterol Fumarate 2 puff INHALATION RT-BID 05/17/17 08/19/17 History [Symbicort 160-4.5 Mcg Inhaler] Methadone [Dolophine] 10 mg PO QAM 05/17/17 08/19/17 History Metoprolol Succinate [Toprol XL] 25 mg PO DAILY 05/17/17 08/19/17 History Pyridoxine [Vitamin B-6] 50 mg PO DAILY 05/17/17 08/19/17 History Fluticasone Nasal [place] [Flonase 2 spr EA NOSTRIL DAILY PRN 07/22/17 08/19/17 History Nasal [place]] Warfarin [Coumadin] 5 mg PO HS 07/22/17 08/19/17 History QUEtiapine [SEROquel] 25 mg PO BID 07/23/17 08/19/17 History Enoxaparin [Lovenox] 100 mg SQ Q12H #14 syr 07/26/17 08/19/17 Rx Nicotine 14Mg/24Hr Patch [Habitrol] 1 patch TRANSDERM Q24H #30 patch 07/26/17 Rx Allergies Allergy/AdvReac Type Severity Reaction Status Date / Time aspirin Allergy GI Verified 08/19/17 07:24 BLEEDING , ABDOMINAL PAIN heparin AdvReac abdominal Verified 08/19/17 07:24 pain , GI bleeding ketorolac tromethamine AdvReac migraines Verified 08/19/17 07:24 [From Toradol] morphine AdvReac Itching Verified 08/19/17 07:24 Physical Exam Vitals: Vital Signs Temp Pulse Pulse Resp BP BP Pulse Ox 08/19/17 07:00 97.8 F 101 H 16 111/58 94 L 08/18/17 22:01 97.6 F 79 17 127/67 96 08/18/17 21:24 81 16 142/67 96 08/18/17 18:47 82 16 135/71 98 08/18/17 16:36 97.6 F 96 18 104/45 99 Intake and Output 08/18/17 08/19/17 08/19/17 22:59 06:59 14:59 Other: Voiding Method Urinal # Voids 1 Weight 99.79 kg PHYSICAL EXAMINATION: GENERAL: The patient is alert and oriented x3, not in any acute distress. Well developed, well nourished. HEENT: Pupils are round and equally reacting to light. EOMI. No scleral icterus. No conjunctival pallor. Normocephalic, atraumatic. No pharyngeal erythema. No thyromegaly. CARDIOVASCULAR: S1 and S2 present. No murmurs, rubs, or gallops. PULMONARY: Chest is clear to auscultation, no wheezing or crackles. ABDOMEN: Multiple abdominal scars patient does have good bowel sounds on the left side of the abdomen no rebound or rigidity mildly tympanic nondistended MUSCULOSKELETAL: No joint swelling or deformity. EXTREMITIES: No cyanosis, clubbing, or pedal edema. NEUROLOGICAL: Gross neurological examination did not reveal any focal deficits. SKIN: No rashes. Results CBC & Chem 7: 08/18/17 17:35 08/18/17 17:35 Labs: Abnormal Lab Results - Last 24 Hours (Table) 08/18/17 08/18/17 08/18/17 Range/Units 17:35 17:35 17:35 WBC 16.8 H (3.8-10.6) k/uL RBC 3.03 L (4.30-5.90) m/uL Hgb 7.3 L (13.0-17.5) gm/dL Hct 25.3 L (39.0-53.0) % MCH 24.0 L (25.0-35.0) pg MCHC 28.7 L (31.0-37.0) g/dL RDW 18.0 H (11.5-15.5) % Neutrophils # (Manual) 13.44 H (1.3-7.7) k/uL PT 40.0 H (9.0-12.0) sec INR 4.4 H (<1.2) APTT 45.9 H (22.0-30.0) sec BUN 21 H (9-20) mg/dL Creatinine 1.36 H (0.66-1.25) mg/dL AST 76 H (17-59) U/L ALT 17 L (21-72) U/L Total Protein 6.0 L (6.3-8.2) g/dL Microbiology - Last 24 Hours (Table) 08/18/17 17:35 Urine Culture - Preliminary Urine,Voided Thrombosis Risk Factor Assmnt - Choose All That Apply Any of the Below Risk Factors Present?: Yes Each Factor Represents 1 point: Abnormal pulmonary function (COPD), Age 41-60 years, Obesity (BMI >25), Serious lung disease incl. pneumonia (< 1month) Other Risk Factors: Yes Each Risk Factor Represents 3 Points: History of DVT/PE Other congenital or acquired thrombophilia - If yes, enter type in comment: No Thrombosis Risk Factor Assessment Total Risk Factor Score: 7 Thrombosis Risk Factor Assessment Level: High Risk Assessment and Plan Plan: -Abdominal pain appears to be mostly chronic and probably related to retained stool in the right; because of the complexity and multiple surgeries in the past , surgery and gastroenterology will be consulted, patient is well-known to those services. Further management as per gastroenterology and surgery. I will leave the pain management decision to surgery as well. -History of DVT in the past, patient INR is supratherapeutic will hold on Coumadin -Acute renal failure: May be related to Bactrim are related to decrease the secretion of creatinine in the renal she feels, Bactrim will be held temporarily continue with IV fluids -Gastroesophageal reflux disease -sleep apnea -Leukocytosis: Probably reactive in nature -Abdominal viscera transplant follows up with in [facility] -Gastroparesis -Mesenteric vein thrombosis chronic -Immunosuppressed state secondary to immunosuppressive therapy chronic
--- NOTE | 2017-08-19 12:07 | CDI ---
Last Revision, March 2017 Documentation Clarification Form Date: 08/19/17 1203 From: Crystal Bright RN, CCDS Admit Date: 08/18/2017 8:13:00 PM Patient Name: Adrian Dubon Visit Number: [id number] ATTENTION: The Clinical Documentation Specialists (CDI) and [facility] Coding Staff appreciate your assistance in clarifying documentation. Please respond to the clarification below the line at the bottom and electronically sign. The CDI & [facility] Coding staff will review the response and follow-up if needed. Please note: Queries are made part of the Legal Health Record. If you have any questions, please contact the author of this message via ITS. Dr. Ton Gregory A diagnosis of chronic anemia in the PMH lacks specificity to accurately reflect your patients severity of condition and clarification is needed. History/Risk Factors: Chronic immunosuppression, CKD stage 3 b, chronic mesenteric vein thrombosis, chronic DVT, GIB hx, multiabdominal organ transplant Clinical indicators: Hemoglobin: 7.3 Hematocrit: 25.3 Treatment: Labs AM Daily Feosol 325 mg Po QD In order to capture the severity of condition, please clarify the type of anemia and etiology if known: Acute blood loss anemia Acute on chronic blood loss anemia Chronic blood loss anemia Iron deficiency anemia Drug induced anemia Nutritional anemia Anemia of chronic kidney disease Unable to determine Other, please specify Please continue to document in your progress notes and discharge summary in order to capture severity of illness and risk of mortality. Include clinical findings that support your diagnosis. Probably anemia of chronic disease MTDD
[2017-08-19] MEDS: MORPHINE SULFATE 4 MG/ML SYRINGE IV PRN ×2 (15:20→19:18)
--- NOTE | 2017-08-19 16:34 | P.GSCN ---
History of Present Illness Consult date: 08/19/17 Reason for Consult: Abdominal pain History of present illness: This is a 47-year-old male who has a chronic history of abdominal pain. Patient has had previous history of stomach small bowel transplant. He is routinely seen at [facility]. He is she is scheduled for a visit next week for upper and lower endoscopy and other tests with his transplant doctor. Patient was admitted to the hospital for complaints of abdominal pain. On x- rays noted to have some stool-like material in the right colon and ileum. Past Medical History Past Medical History: Atrial Fibrillation, COPD, Deep Vein Thrombosis (DVT), GERD/Reflux, Pneumonia, Sleep Apnea/CPAP/BIPAP Additional Past Medical History / Comment(s): Pt had recent admission to [facility] with pneumonia. 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 History of Any Multi-Drug Resistant Organisms: MRSA Year Discovered:: 05/29/17 MDRO Source:: BRONCH WASH Additional Past Surgical History / Comment(s): Multivisceral organ transplant including bowel, pancreas, and stomach at [facility]-follows thru [facility], left knee arthrotomy, EGD, colonoscopy, ERCP with insertion of a pancreatic duct stent Past Anesthesia/Blood Transfusion Reactions: No Reported Reaction Additional Past Anesthesia/Blood Transfusion Reaction / Comm: STATES R/T TO MULTIPLE SX HE REQUIRES A LOT OF MEDICATION for anesthesia. He has had multiple blood transfusions without reaction. Smoking Status: Former smoker - Past Family History Mother History Unknown: Yes Additional Family Medical History / Comment(s): pt is adopted, does not know any hx Father History Unknown: Yes Additional Family Medical History / Comment(s): pt is adopted, does not know any hx Medications and Allergies Home Medications Medication Instructions Recorded Confirmed Type Calcium Citrate/Vitamin D3 1 tab PO BID 09/02/13 08/19/17 History [Calcium Citrate - Vit D3 Tab] Ferrous Gluconate 325 mg PO BID 09/02/13 08/19/17 History Magnesium Gluconate [Magonate] 500 mg PO BID 09/02/13 08/19/17 History Multivitamin [Men's Multi-Vitamin] 1 tab PO QAM 09/02/13 08/19/17 History Sertraline [Zoloft] 150 mg PO QAM 09/02/13 08/19/17 History Tacrolimus [Prograf] 1 mg PO HS 09/02/13 08/19/17 History Tacrolimus [Prograf] 2 mg PO QAM 09/02/13 08/19/17 History Cholecalciferol (Vitamin D3) 10,000 unit PO QAM 09/22/15 08/19/17 History [Vitamin D3] Hydrocortisone 10 mg PO HS 09/22/15 08/19/17 History Ogcqpm-Zpzfrrml-Oscqzox [Zenpep 10] 1 cap PO BID 09/22/15 08/19/17 History Sulfamethoxazole/Trimethoprim 0.5 tab PO MOWEFR 08/02/16 08/19/17 History [Bactrim DS 800-160 mg] Ipratropium [place] [Atrovent Hfa] 2 puff INHALATION RT-BID 09/03/16 08/19/17 History Albuterol Sulfate [Proair Hfa] 1 - 2 puff INHALATION RT-Q6H PRN 12/19/16 History Fludrocortisone [Florinef] 0.1 mg PO DAILY 12/19/16 08/19/17 History traZODone HCL 100 mg PO HS 12/19/16 08/19/17 History Gabapentin [Neurontin] 300 mg PO TID 03/23/17 08/19/17 History HYDROcodone/APAP 10-325MG [[place] 1 tab PO Q4HR PRN 03/23/17 08/19/17 History 10-325] Hydrocortisone [Cortef] 20 mg PO QAM 03/23/17 08/19/17 History Methadone HCl [Dolophine HCl] 5 mg PO HS 03/23/17 08/19/17 History Sucralfate [Carafate] 1 gm PO BID 03/23/17 08/19/17 History Budesonide/Formoterol Fumarate 2 puff INHALATION RT-BID 05/17/17 08/19/17 History [Symbicort 160-4.5 Mcg Inhaler] Methadone [Dolophine] 10 mg PO QAM 05/17/17 08/19/17 History Metoprolol Succinate [Toprol XL] 25 mg PO DAILY 05/17/17 08/19/17 History Pyridoxine [Vitamin B-6] 50 mg PO DAILY 05/17/17 08/19/17 History Fluticasone Nasal [place] [Flonase 2 spr EA NOSTRIL DAILY PRN 07/22/17 08/19/17 History Nasal [place]] Warfarin [Coumadin] 5 mg PO HS 07/22/17 08/19/17 History QUEtiapine [SEROquel] 25 mg PO BID 07/23/17 08/19/17 History Enoxaparin [Lovenox] 100 mg SQ Q12H #14 syr 07/26/17 08/19/17 Rx Nicotine 14Mg/24Hr Patch [Habitrol] 1 patch TRANSDERM Q24H #30 patch 07/26/17 Rx Allergies Allergy/AdvReac Type Severity Reaction Status Date / Time aspirin Allergy GI Verified 08/19/17 07:24 BLEEDING , ABDOMINAL PAIN heparin AdvReac abdominal Verified 08/19/17 07:24 pain , GI bleeding ketorolac tromethamine AdvReac migraines Verified 08/19/17 07:24 [From Toradol] morphine AdvReac Itching Verified 08/19/17 07:24 Surgical - Exam Vital Signs Temp Pulse Resp BP Pulse Ox 97.6 F 96 18 104/45 99 08/18/17 16:36 08/18/17 16:36 08/18/17 16:36 08/18/17 16:36 08/18/17 16:36 - General well developed, no distress - Eyes PERRL - ENT normal pinna - Neck no masses - Respiratory normal expansion - Cardiovascular Rhythm: regular - Abdomen Minimal tenderness right lower quadrant. There is no rebound or guarding. Abdomen: soft, non tender Results - Labs 08/18/17 17:35 08/18/17 17:35 Abnormal Lab Results - Last 24 Hours (Table) 08/18/17 08/18/17 08/18/17 Range/Units 17:35 17:35 17:35 WBC 16.8 H (3.8-10.6) k/uL RBC 3.03 L (4.30-5.90) m/uL Hgb 7.3 L (13.0-17.5) gm/dL Hct 25.3 L (39.0-53.0) % MCH 24.0 L (25.0-35.0) pg MCHC 28.7 L (31.0-37.0) g/dL RDW 18.0 H (11.5-15.5) % Neutrophils # (Manual) 13.44 H (1.3-7.7) k/uL PT 40.0 H (9.0-12.0) sec INR 4.4 H (<1.2) APTT 45.9 H (22.0-30.0) sec BUN 21 H (9-20) mg/dL Creatinine 1.36 H (0.66-1.25) mg/dL AST 76 H (17-59) U/L ALT 17 L (21-72) U/L Total Protein 6.0 L (6.3-8.2) g/dL Microbiology - Last 24 Hours (Table) 08/18/17 17:35 Urine Culture - Preliminary Urine,Voided Diabetes panel 08/18/17 Range/Units 17:35 Sodium 140 (137-145) mmol/L Potassium 4.0 (3.5-5.1) mmol/L Chloride 102 (98-107) mmol/L Carbon Dioxide 28 (22-30) mmol/L BUN 21 H (9-20) mg/dL Creatinine 1.36 H (0.66-1.25) mg/dL Glucose 94 (74-99) mg/dL Calcium 9.2 (8.4-10.2) mg/dL AST 76 H (17-59) U/L ALT 17 L (21-72) U/L Alkaline Phosphatase 80 (38-126) U/L Total Protein 6.0 L (6.3-8.2) g/dL Albumin 3.7 (3.5-5.0) g/dL Calcium panel 08/18/17 Range/Units 17:35 Calcium 9.2 (8.4-10.2) mg/dL Albumin 3.7 (3.5-5.0) g/dL Pituitary panel 08/18/17 Range/Units 17:35 Sodium 140 (137-145) mmol/L Potassium 4.0 (3.5-5.1) mmol/L Chloride 102 (98-107) mmol/L Carbon Dioxide 28 (22-30) mmol/L BUN 21 H (9-20) mg/dL Creatinine 1.36 H (0.66-1.25) mg/dL Glucose 94 (74-99) mg/dL Calcium 9.2 (8.4-10.2) mg/dL Adrenal panel 08/18/17 Range/Units 17:35 Sodium 140 (137-145) mmol/L Potassium 4.0 (3.5-5.1) mmol/L Chloride 102 (98-107) mmol/L Carbon Dioxide 28 (22-30) mmol/L BUN 21 H (9-20) mg/dL Creatinine 1.36 H (0.66-1.25) mg/dL Glucose 94 (74-99) mg/dL Calcium 9.2 (8.4-10.2) mg/dL Total Bilirubin 0.4 (0.2-1.3) mg/dL AST 76 H (17-59) U/L ALT 17 L (21-72) U/L Alkaline Phosphatase 80 (38-126) U/L Total Protein 6.0 L (6.3-8.2) g/dL Albumin 3.7 (3.5-5.0) g/dL - Imaging CT scan - chest: report reviewed (Insipated. stool in the right lower quadrant) Assessment and Plan Assessment: Abdominal pain History of stomach and bowel transplant. The patient may have issues with dysmotility was bowel. He currently is having bowel movements. I would recommend follow-up at [facility] with his transplant team. If he has any change in his condition. We will repeat his x- ray tomorrow.
[2017-08-19] MEDS: IPRATROPIUM 0.5 MG/2.5 ML NEBU INHALATION SCH (20:51)
[2017-08-19] MEDS: ZENPEP PO SCH (21:19)
[2017-08-20] MEDS: MORPHINE SULFATE 4 MG/ML SYRINGE IV PRN ×3 (00:19→11:08)
[2017-08-20 02:15] VITALS: PULSE 90
[2017-08-20] MEDS: SODIUM CHLORIDE 0.9% 1,000 ML IV SCH (05:17)
[2017-08-20] MEDS: diphenhydrAMINE 50 MG/ML 1 ML VIAL IVP PRN (06:32)
[2017-08-20] MEDS: SYMBICORT 160-4.5 MCG INHALER INHALATION SCH (07:14)
[2017-08-20 07:37] LABS: Anisocytosis Slight; HCT 28.6 % (39.0-53.0); Hypochromasia Marked; MCH 23.9 pg (25.0-35.0); MCHC 28.1 g/dL (31.0-37.0); MCV 85.1 fL (80.0-100.0); Mean Platelet Volume 11.7; RBC 3.36 m/uL (4.30-5.90); RDW 18.1 % (11.5-15.5); WBC 12.6 k/uL (3.8-10.6)
[2017-08-20 07:43] LABS: INR 2.8 (<1.2)
[2017-08-20 07:48] LABS: Calcium 8.2 mg/dL (8.4-10.2); Potassium 4.6 mmol/L (3.5-5.1)
[2017-08-20 08:15] LABS: Platelet Count 218 k/uL (150-450)
[2017-08-20] MEDS ORDERED: SERTRALINE 50 MG TAB PO SCH (09:00)
[2017-08-20] MEDS ORDERED: METOPROLOL SUCCINATE (ER) 25 MG TAB.ER.24H PO SCH (09:00)
[2017-08-20] MEDS ORDERED: PYRIDOXINE 50 MG TAB PO SCH (09:00)
[2017-08-20] MEDS: GABAPENTIN 300 MG CAP PO SCH (09:19)
[2017-08-20] MEDS: QUEtiapine 25 MG TAB PO SCH (09:19)
[2017-08-20] MEDS: FERROUS SULFATE 325 MG TAB PO SCH (09:19)
[2017-08-20] MEDS: SUCRALFATE 1 GM TAB PO SCH (09:20)
[2017-08-20 09:30] VITALS: BP 103/57; TEMP 98.3
--- NOTE | 2017-08-20 10:09 | P.CONS ---
History of Present Illness - Reason for Consult Consult date: 08/20/17 Abdominal pain Requesting physician: Ton Gregory - History of Present Illness 47-year-old gentleman admitted with generalized mid abdominal pain with an underlying extensive surgical history that includes multiorgan transplantation followed closely at [facility], including the stomach small bowel duodenum and pancreas as well as an additional underlying history of adrenal insufficiency chronic mesenteric vein thrombosis maintained on warfarin, chronic DVT left subclavian vein axillary and brachial cephalic, chronic anemia , chronic diarrhea maintained on methadone, paroxysmal atrial fibrillation, sleep apnea, GI bleeds, chronic renal failure, gastroparesis, pancreatitis, pleurisy,. Patient has scheduled follow-up at the [facility] next for EGD colonoscopy. His last upper endoscopy was less than a year ago secondary to GI bleed according to the patient they found an ulcer. Presently denies hematemesis hematochezia melena. Pain is generalized localized mostly around the mid to upper abdomen. No fever or chills. White count 12.6-16.8. Hemoglobin 7.3-8. Platelets 218. INR 2.8. BUN [address] abdomen and pelvis no evidence of bowel obstruction. Large amount of stool noted in several loops of bowel in the right mid and lower abdomen. No free air. Review of Systems RConstitutional: Denies fever, chills, sweats, weight gain, or loss. HEENT: Negative for migraines, blurred vision or loss, earaches, drainage, tinnitus, oral mucosal lesions, dysphagia, or odynophagia. Cardiac: Denies chest pain or arrhythmia or palpitations.. Respiratory: Negative for shortness of breath, hemoptysis, cough, or sputum production. Gastrointestinal: See HPI for pertinent findings. Genitourinary: Negative for hematuria, urgency, frequency, polyuria, dysuria, or penile discharge. Musculoskeletal: Negative for muscle aches, swelling, arthritis, and arthralgias. Neurologic: Negative for stroke or TIA. Endocrine: Negative for thyroid problems. Skin: Negative for rash or itching. Psychiatric: History of anxiety depression. Past Medical History Past Medical History: Atrial Fibrillation, COPD, Deep Vein Thrombosis (DVT), GERD/Reflux, Pneumonia, Sleep Apnea/CPAP/BIPAP Additional Past Medical History / Comment(s): Pt had recent admission to [facility] with pneumonia. 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 History of Any Multi-Drug Resistant Organisms: MRSA Year Discovered:: 05/29/17 MDRO Source:: BRONCH WASH Additional Past Surgical History / Comment(s): Multivisceral organ transplant including bowel, pancreas, and stomach at [facility]-follows thru [facility], left knee arthrotomy, EGD, colonoscopy, ERCP with insertion of a pancreatic duct stent Past Anesthesia/Blood Transfusion Reactions: No Reported Reaction Additional Past Anesthesia/Blood Transfusion Reaction / Comm: STATES R/T TO MULTIPLE SX HE REQUIRES A LOT OF MEDICATION for anesthesia. He has had multiple blood transfusions without reaction. Smoking Status: Former smoker - Past Family History Mother History Unknown: Yes Additional Family Medical History / Comment(s): pt is adopted, does not know any hx Father History Unknown: Yes Additional Family Medical History / Comment(s): pt is adopted, does not know any hx Medications and Allergies Home Medications Medication Instructions Recorded Confirmed Type Calcium Citrate/Vitamin D3 1 tab PO BID 09/02/13 08/19/17 History [Calcium Citrate - Vit D3 Tab] Ferrous Gluconate 325 mg PO BID 09/02/13 08/19/17 History Magnesium Gluconate [Magonate] 500 mg PO BID 09/02/13 08/19/17 History Multivitamin [Men's Multi-Vitamin] 1 tab PO QAM 09/02/13 08/19/17 History Sertraline [Zoloft] 150 mg PO QAM 09/02/13 08/19/17 History Tacrolimus [Prograf] 1 mg PO HS 09/02/13 08/19/17 History Tacrolimus [Prograf] 2 mg PO QAM 09/02/13 08/19/17 History Cholecalciferol (Vitamin D3) 10,000 unit PO QAM 09/22/15 08/19/17 History [Vitamin D3] Hydrocortisone 10 mg PO HS 09/22/15 08/19/17 History Iexblf-Jbwjjwho-Xafaoeu [Zenpep 10] 1 cap PO BID 09/22/15 08/19/17 History Sulfamethoxazole/Trimethoprim 0.5 tab PO MOWEFR 08/02/16 08/19/17 History [Bactrim DS 800-160 mg] Ipratropium [place] [Atrovent Hfa] 2 puff INHALATION RT-BID 09/03/16 08/19/17 History Albuterol Sulfate [Proair Hfa] 1 - 2 puff INHALATION RT-Q6H PRN 12/19/16 History Fludrocortisone [Florinef] 0.1 mg PO DAILY 12/19/16 08/19/17 History traZODone HCL 100 mg PO HS 12/19/16 08/19/17 History Gabapentin [Neurontin] 300 mg PO TID 03/23/17 08/19/17 History HYDROcodone/APAP 10-325MG [[place] 1 tab PO Q4HR PRN 03/23/17 08/19/17 History 10-325] Hydrocortisone [Cortef] 20 mg PO QAM 03/23/17 08/19/17 History Methadone HCl [Dolophine HCl] 5 mg PO HS 03/23/17 08/19/17 History Sucralfate [Carafate] 1 gm PO BID 03/23/17 08/19/17 History Budesonide/Formoterol Fumarate 2 puff INHALATION RT-BID 05/17/17 08/19/17 History [Symbicort 160-4.5 Mcg Inhaler] Methadone [Dolophine] 10 mg PO QAM 05/17/17 08/19/17 History Metoprolol Succinate [Toprol XL] 25 mg PO DAILY 05/17/17 08/19/17 History Pyridoxine [Vitamin B-6] 50 mg PO DAILY 05/17/17 08/19/17 History Fluticasone Nasal [place] [Flonase 2 spr EA NOSTRIL DAILY PRN 07/22/17 08/19/17 History Nasal [place]] Warfarin [Coumadin] 5 mg PO HS 07/22/17 08/19/17 History QUEtiapine [SEROquel] 25 mg PO BID 07/23/17 08/19/17 History Enoxaparin [Lovenox] 100 mg SQ Q12H #14 syr 07/26/17 08/19/17 Rx Nicotine 14Mg/24Hr Patch [Habitrol] 1 patch TRANSDERM Q24H #30 patch 07/26/17 Rx Allergies Allergy/AdvReac Type Severity Reaction Status Date / Time aspirin Allergy GI Verified 08/19/17 07:24 BLEEDING , ABDOMINAL PAIN heparin AdvReac abdominal Verified 08/19/17 07:24 pain , GI bleeding ketorolac tromethamine AdvReac migraines Verified 08/19/17 07:24 [From Toradol] morphine AdvReac Itching Verified 08/19/17 07:24 Physical Exam Vitals: Vital Signs Temp Pulse Resp BP Pulse Ox 08/20/17 09:29 98.3 F 90 103/57 93 L 08/20/17 01:10 97.7 F 90 16 121/62 96 08/19/17 20:00 98.6 F 93 16 121/63 96 08/19/17 14:35 97.9 F 96 16 124/67 91 L Intake and Output 08/19/17 08/20/17 08/20/17 22:59 06:59 14:59 Intake Total 800 Output Total 200 Balance 800 -200 Intake: Intake, IV Titration 800 Amount Sodium Chloride 0.9% 1, 800 000 ml @ 100 mls/hr IV . Q10H [facility] Rx#:[id number] Output: Urine 200 Other: # Voids 2 General appearance: The patient is alert, oriented, in no acute distress. HET: Head is normocephalic and atraumatic. Pupils are equal and reactive. Oropharynx is clear without lesions. Neck: Supple without lymphadenopathy. Trachea midline. Heart: S1 S2. Regular rate and rhythm. Lungs: No crackles or wheezes are heard. Abdomen: Soft, mild tenderness across mid abdomen, nondistended with bowel sounds. No peritoneal signs. No palpable organomegaly or masses. Extremities: Normal skin color and turgor. No cyanosis, rash, ulceration, clubbing, or edema. Radial and pedal pulses are 2/4 bilaterally. Neurological: No focal deficits. Strength and sensation are grossly intact. Results CBC & Chem 7: 08/20/17 07:13 08/20/17 07:13 Labs: Abnormal Lab Results - Last 24 Hours (Table) 08/20/17 08/20/17 08/20/17 Range/Units 07:13 07:13 07:13 WBC 12.6 H (3.8-10.6) k/uL RBC 3.36 L (4.30-5.90) m/uL Hgb 8.0 L (13.0-17.5) gm/dL Hct 28.6 L (39.0-53.0) % MCH 23.9 L (25.0-35.0) pg MCHC 28.1 L (31.0-37.0) g/dL RDW 18.1 H (11.5-15.5) % PT 25.0 H (9.0-12.0) sec INR 2.8 H (<1.2) Calcium 8.2 L (8.4-10.2) mg/dL Microbiology - Last 24 Hours (Table) 08/18/17 17:35 Urine Culture - Final Urine,Voided CT scan - abdomen: report reviewed (Dr. Barnard) Assessment and Plan (1) Abdominal pain Narrative/Plan: 47-year-old male with a history of multiorgan transplantation of the small bowel stomach and pancreas presents with generalized mid abdominal pain with CT findings reported no evidence of free air or obstruction, stool retention and bowel loops in the right mid to lower quadrant. Presently under medical care at [facility] with appointment scheduled in 1 week for EGD colonoscopy evaluation. Current Visit: No Status: Acute Code(s): R10.9 - UNSPECIFIED ABDOMINAL PAIN SNOMED Code(s): 66786022 (2) Warfarin-induced coagulopathy Current Visit: Yes Status: Acute Code(s): D68.32 - HEMORRHAGIC DISORD D/T EXTRINSIC CIRCULATING ANTICOAGULANTS; T45.515A - ADVERSE EFFECT OF ANTICOAGULANTS, INITIAL ENCOUNTER SNOMED Code(s): 58546344 (3) History of organ transplantation Current Visit: Yes Status: Chronic Code(s): Z94.9 - TRANSPLANTED ORGAN AND TISSUE STATUS, UNSPECIFIED SNOMED Code(s): 288928956 Plan: 1. Patient has called his coordinator of library services this morning with a request to move up his appointment to the end of the week. At this time his abdominal pain is mild without evidence of peritonitis; he is passing bowel movements without blood or fever. Recommend follow-up at tertiary center for continuance of care. No further workup from a GI standpoint at this time. Continue supportive and symptomatic measures. Thank you for this kind referral and the opportunity to participate in the care of your patient. This consultation was discussed with Dr. Barnard. The impression and plan of care have been directed as dictated.
--- NOTE | 2017-08-20 10:15 | XR ---
EXAMINATION TYPE: XR abdomen complete w decub DATE OF EXAM: 08/20/2017 COMPARISON: CT abdomen pelvis 08/18/2017, abdomen dated 07/25/2017 HISTORY: Bowel obstruction, abdominal pain TECHNIQUE: Supine, upright, and left side down lateral decubitus views of the abdomen are obtained. FINDINGS: There is some gas-filled loops of bowel with air-fluid levels present. No pneumoperitoneum. Lung base s are clear. Some spherical high density is noted at the level of the upper quadrant on the left whic h may represent calcification, postop change. Degenerative disc changes are present in the visualized spine, probable vascular calcifications present within the pelvis. IMPRESSION: There may be an underlying enteritis, follow-up as indicated if bowel obstruction is suspected.
[2017-08-20] MEDS: IPRATROPIUM 0.5 MG/2.5 ML NEBU INHALATION SCH (10:19)
[2017-08-20] MEDS: ZENPEP PO SCH (10:19)
--- NOTE | 2017-08-20 13:05 | P.PN ---
Progress Note - Text Progress Note Date: 08/20/17 The patient still has some complaints of crampy pain. On exam his vital signs appear stable. His abdomen is soft there is some mild tenderness throughout. I had a lengthy discussion with the patient and his mother I recommended transfer to his transplant team. Apparently the patient scheduled see them next week. The patient wishes to drive to his transplant team. He will be transferred per the medical service. We will sign off.
--- NOTE | 2017-08-20 15:03 | P.DS ---
Providers Date of admission: 08/18/17 20:13 Attending physician: Niurka Lundberg Consults: 08/19/17 10:35 Consult Physician Routine Consulting Provider: Derick Mortensen Consult Reason/Comments: abdominal pain Do you want consulting provider notified?: Already Contacted 08/19/17 10:36 Consult Physician Routine Consulting Provider: Alycia Worley Consult Reason/Comments: Abdominal pain Do you want consulting provider notified?: Yes Primary care physician: Ras Lau [facility] Course: 47-year-old male who presents to the emergency department with chief complaint of abdominal pain. 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 Patient states that he had a pseudoabdominal obstruction and gastroparesis. He states that he did well for approximately 13 years and then started developing abdominal pains. He states that he was seen here a couple weeks ago with abdominal pain and was admitted. He states that he does have a follow-up appointment with his surgeon at the [facility] on August 28. Patient states that over the past month his abdominal pain has worsened. He states that at first the abdominal pain would come on every time he eats but now it is present at all times. He describes the pain as feeling "full of air" and "feeling like a balloon." His pain is 9/ 10 in severity He denies fevers or chills, nausea or vomiting, chest pain or shortness of breath. He does state that he has chronic diarrhea for which he takes methadone to slow down his intestines. It was noted that patient is ALLERGIC to morphine but patient didn't have an ALLERGIC reaction here and is receiving morphine at this time. Patient does have chronic diarrhea still having some diarrhea patient is on Bactrim as per the transplant physician. This is being held temporarily right now because of acute renal dysfunction which is probably due to decreased secretion of creatinine in the urine. Patient is found to have significant amount of stool in the right colon patient may be having postobstructive diarrhea, patient was evaluated by multiple surgeons in the past and this hospital and patient at the time was requested to go back to [facility] in [facility]. Patient is wishing to see his regular physicians rather than me although the covering doctor for [place] normally sees him in the hospital. I'll get the opinion from surgery and gastroenterology regarding his management of abdominal pain because of the complexity and history of the patient. Patient just wanted his pain to be managed and wanted to be discharged after that. 08/20/2017 Patient was evaluated by surgery and gastric body services, patient does not have any signs or symptoms of acute abdomen patient does have good bowel sounds. Patient did move his bowel. Presently no acute abdominal events patient has chronic abdominal pain for which patient is on pain medications at home. Patient is complaining of some dizziness today which I believe is secondary to excessive narcotics that he is getting a here in the hospital. Patient doesn't have any emergent need to be transferred to [facility]. Patient will be discharged home and he will follow in [facility] as scheduled. His INR is 2.8 which was elevated at the time of admission cutting down the dose of Coumadin to 3 mg with repeat INR in 2 days PHYSICAL EXAMINATION: GENERAL: The patient is alert and oriented x3, not in any acute distress. Well developed, well nourished. HEENT: Pupils are round and equally reacting to light. EOMI. No scleral icterus. No conjunctival pallor. Normocephalic, atraumatic. No pharyngeal erythema. No thyromegaly. CARDIOVASCULAR: S1 and S2 present. No murmurs, rubs, or gallops. PULMONARY: Chest is clear to auscultation, no wheezing or crackles. ABDOMEN: Multiple abdominal scars patient does have good bowel sounds on the left side of the abdomen no rebound or rigidity mildly tympanic nondistended MUSCULOSKELETAL: No joint swelling or deformity. EXTREMITIES: No cyanosis, clubbing, or pedal edema. NEUROLOGICAL: Gross neurological examination did not reveal any focal deficits. SKIN: No rashes. Assessment and Plan Plan: -Abdominal pain appears to be mostly chronic and probably related to retained stool in the right; because of the complexity and multiple surgeries in the past , surgery and gastroenterology will be consulted, patient is well-known to those services. Further management as per gastroenterology and surgery. I will leave the pain management decision to surgery as well. -History of DVT in the past, patient INR is supratherapeutic will hold on Coumadin -Acute renal failure: Patient may have false elevation of creatinine from Bactrim which actually improved now patient can be resumed on Bactrim and follow -up with [facility] -Gastroesophageal reflux disease -sleep apnea -Leukocytosis: Probably reactive in nature -Abdominal viscera transplant follows up with in [facility] -Gastroparesis -Mesenteric vein thrombosis chronic -Immunosuppressed state secondary to immunosuppressive therapy. Patient Condition at Discharge: Stable Plan - Discharge Summary Discharge Rx Participant: Yes New Discharge Prescriptions: New Warfarin [Coumadin] 3 mg PO DAILY #30 tab Discontinued Warfarin [Coumadin] 5 mg PO HS No Action Sertraline [Zoloft] 150 mg PO QAM Tacrolimus [Prograf] 1 mg PO HS Tacrolimus [Prograf] 2 mg PO QAM Ferrous Gluconate 325 mg PO BID Multivitamin [Men's Multi-Vitamin] 1 tab PO QAM Magnesium Gluconate [Magonate] 500 mg PO BID Calcium Citrate/Vitamin D3 [Calcium Citrate - Vit D3 Tab] 1 tab PO BID Sgyjxm-Dbzjgkjf-Jjtfcga [Zenpep 10] 1 cap PO BID Hydrocortisone 10 mg PO HS Cholecalciferol (Vitamin D3) [Vitamin D3] 10,000 unit PO QAM Sulfamethoxazole/Trimethoprim [Bactrim DS 800-160 mg] 0.5 tab PO MOWEFR Ipratropium [place] [Atrovent Hfa] 2 puff INHALATION RT-BID traZODone HCL 100 mg PO HS Fludrocortisone [Florinef] 0.1 mg PO DAILY Albuterol Sulfate [Proair Hfa] 1 - 2 puff INHALATION RT-Q6H PRN PRN Reason: Shortness Of Breath Gabapentin [Neurontin] 300 mg PO TID HYDROcodone/APAP 10-325MG [[place] 10-325] 1 tab PO Q4HR PRN PRN Reason: Pain Methadone HCl [Dolophine HCl] 5 mg PO HS Sucralfate [Carafate] 1 gm PO BID Hydrocortisone [Cortef] 20 mg PO QAM Budesonide/Formoterol Fumarate [Symbicort 160-4.5 Mcg Inhaler] 2 puff INHALATION RT-BID Pyridoxine [Vitamin B-6] 50 mg PO DAILY Metoprolol Succinate [Toprol XL] 25 mg PO DAILY Methadone [Dolophine] 10 mg PO QAM Fluticasone Nasal [place] [Flonase Nasal [place]] 2 spr EA NOSTRIL DAILY PRN PRN Reason: Allergy Symptoms QUEtiapine [SEROquel] 25 mg PO BID Enoxaparin [Lovenox] 100 mg SQ Q12H #14 syr Nicotine 14Mg/24Hr Patch [Habitrol] 1 patch TRANSDERM Q24H #30 patch Discharge Medication List Calcium Citrate/Vitamin D3 [Calcium Citrate - Vit D3 Tab] 1 tab PO BID 09/02/13 [History] Ferrous Gluconate 325 mg PO BID 09/02/13 [History] Magnesium Gluconate [Magonate] 500 mg PO BID 09/02/13 [History] Multivitamin [Men's Multi-Vitamin] 1 tab PO QAM 09/02/13 [History] Sertraline [Zoloft] 150 mg PO QAM 09/02/13 [History] Tacrolimus [Prograf] 1 mg PO HS 09/02/13 [History] Tacrolimus [Prograf] 2 mg PO QAM 09/02/13 [History] Cholecalciferol (Vitamin D3) [Vitamin D3] 10,000 unit PO QAM 09/22/15 [History] Hydrocortisone 10 mg PO HS 09/22/15 [History] Lmzxzv-Qlcomrhm-Agbppfb [Zenpep 10] 1 cap PO BID 09/22/15 [History] Sulfamethoxazole/Trimethoprim [Bactrim DS 800-160 mg] 0.5 tab PO MOWEFR [History] Ipratropium [place] [Atrovent Hfa] 2 puff INHALATION RT-BID 09/03/16 [History] Albuterol Sulfate [Proair Hfa] 1 - 2 puff INHALATION RT-Q6H PRN 12/19/16 [ History] Fludrocortisone [Florinef] 0.1 mg PO DAILY 12/19/16 [History] traZODone HCL 100 mg PO HS 12/19/16 [History] Gabapentin [Neurontin] 300 mg PO TID 03/23/17 [History] HYDROcodone/APAP 10-325MG [[place] 10-325] 1 tab PO Q4HR PRN 03/23/17 [History] Hydrocortisone [Cortef] 20 mg PO QAM 03/23/17 [History] Methadone HCl [Dolophine HCl] 5 mg PO HS 03/23/17 [History] Sucralfate [Carafate] 1 gm PO BID 03/23/17 [History] Budesonide/Formoterol Fumarate [Symbicort 160-4.5 Mcg Inhaler] 2 puff INHALATION RT-BID 05/17/17 [History] Methadone [Dolophine] 10 mg PO QAM 05/17/17 [History] Metoprolol Succinate [Toprol XL] 25 mg PO DAILY 05/17/17 [History] Pyridoxine [Vitamin B-6] 50 mg PO DAILY 05/17/17 [History] Fluticasone Nasal [place] [Flonase Nasal [place]] 2 spr EA NOSTRIL DAILY PRN [History] QUEtiapine [SEROquel] 25 mg PO BID 07/23/17 [History] Enoxaparin [Lovenox] 100 mg SQ Q12H #14 syr 07/26/17 [Rx] Nicotine 14Mg/24Hr Patch [Habitrol] 1 patch TRANSDERM Q24H #30 patch 07/26/17 [ Rx] Warfarin [Coumadin] 3 mg PO DAILY #30 tab 08/20/17 [Rx] Follow up Appointment(s)/Referral(s): Ras Zhao MD [Primary Care Provider] - 3 Days (Please follow up with PCP upon leaving [facility]) Ambulatory/Diagnostic Orders: Prothrombin Time INR [LAB.AMB] Time Frame: 2 Days, Location: Determined By Patient Discharge Disposition: HOME SELF-CARE
== END 2017-08-20 15:40 | disposition home or self-care (01) | DRG 391 ==
LOC: EC 16:07 → 3SUR 20:13
PROVIDERS: ADMIT Internal Medicine; ATTEND Internal Medicine
DX: K31.84 Gastroparesis (principal); I81 Portal vein thrombosis; E27.40 Unspecified adrenocortical insufficiency; N17.9 Acute kidney failure, unspecified; I82.722 Chronic embolism and thrombosis of deep veins of left upper extremity; Z94.82 Intestine transplant status; Z94.83 Pancreas transplant status; K59.09 Other constipation; G47.33 Obstructive sleep apnea (adult) (pediatric); I48.0 Paroxysmal atrial fibrillation; J44.9 Chronic obstructive pulmonary disease, unspecified; K21.9 Gastro-esophageal reflux disease without esophagitis; K52.9 Noninfective gastroenteritis and colitis, unspecified; N18.3 Chronic kidney disease, stage 3 (moderate); R79.1 Abnormal coagulation profile; F32.9 Major depressive disorder, single episode, unspecified; F41.9 Anxiety disorder, unspecified; G89.29 Other chronic pain; M54.9 Dorsalgia, unspecified; R42 Dizziness and giddiness; T45.1X5A Adverse effect of antineoplastic and immunosuppressive drugs, initial encounter; D63.8 Anemia in other chronic diseases classified elsewhere; T40.605A Adverse effect of unspecified narcotics, initial encounter; T37.0X5A Adverse effect of sulfonamides, initial encounter; Z79.01 Long term (current) use of anticoagulants; Z79.51 Long term (current) use of inhaled steroids; Z79.899 Other long term (current) drug therapy; Z79.891 Long term (current) use of opiate analgesic; Z86.14 Personal history of Methicillin resistant Staphylococcus aureus infection; Z87.891 Personal history of nicotine dependence; Z88.5 Allergy status to narcotic agent; Z88.6 Allergy status to analgesic agent; Z94.89 Other transplanted organ and tissue status; Z88.8 Allergy status to other drugs, medicaments and biological substances; Y92.239 Unspecified place in hospital as the place of occurrence of the external cause; Y92.009 Unspecified place in unspecified non-institutional (private) residence as the place of occurrence of the external cause
CPT/HCPCS: 36415; 74021; 74177; 80048; 80053; 81003; 82150; 83690; 85025; 85027; 85610; 85730; 87086; 94640; 96361; 96374; 96375; 96376; 99285

== ENCOUNTER → 2017-10-03 | Outpatient (CLI) | payer MEDICARE, BC ==
--- NOTE | 2017-10-03 20:10 | CT ---
EXAMINATION TYPE: CT chest wo con DATE OF EXAM: 10/03/2017 COMPARISON: 07/22/2017 HISTORY: Cough x6 days CT DLP: 745 mGycm. Automated Exposure Control for Dose Reduction was Utilized. TECHNIQUE: CT scan of the thorax is performed without IV contrast. FINDINGS: There is mild bullous pulmonary emphysema at the lung apices. There is no evidence of a pulmonary mas s. There is no pleural effusion. There is no pericardial effusion. There is some reticular density in the lingula left upper lobe. The bony thorax is intact. Heart size is normal. I see no hilar mass. T here are large central pulmonary arteries. There are paratracheal lymph nodes measure less than 1 cm. There are multiple varicose veins on the anterior chest. The proximal descending thoracic aorta jessica ures 3.6 cm. IMPRESSION: Varicose veins on the anterior left upper chest consistent with left subclavian vein thro mbosis and collateral flow. Mild aneurysm of the descending thoracic aorta. Large central pulmonary a rteries consistent with pulmonary hypertension. No pulmonary mass seen. Minimal reticular infiltrate in the lingula left upper lobe shows clearing compared to old exam. There is clearing of the mild inf iltrate in the left upper lobe compared to old exam. Minimal pulmonary emphysema.
== END | disposition home or self-care (01) ==
LOC: RADCTMAIN 18:51
PROVIDERS: ATTEND Family Medicine
DX: J43.9 Emphysema, unspecified (principal); I71.2 Thoracic aortic aneurysm, without rupture; I86.8 Varicose veins of other specified sites
CPT/HCPCS: 71250

== ENCOUNTER → 2017-10-30 | Outpatient (CLI) | payer MEDICARE, BC ==
[2017-10-30 15:04] LABS: INR 1.1 (<1.2); Prothrombin Time 10.8 sec (9.0-12.0)
[2017-10-30 15:28] LABS: Anisocytosis Slight; Basophils % (A) 0 %; Eosinophils # (A) 0.2 k/uL (0-0.7); Eosinophils % (A) 2 %; HCT 36.2 % (39.0-53.0); HGB 10.7 gm/dL (13.0-17.5); Hypochromasia Marked; Lymphocytes # (A) 2.1 k/uL (1.0-4.8); Lymphocytes % (A) 19 %; MCH 24.6 pg (25.0-35.0); MCHC 29.6 g/dL (31.0-37.0); MCV 82.9 fL (80.0-100.0); Mean Platelet Volume 12.6; Monocytes # (A) 0.9 k/uL (0-1.0); Monocytes % (A) 8 %; Neutrophils # (A) 7.6 k/uL (1.3-7.7); Neutrophils % (A) 68 %; Platelet Count 214 k/uL (150-450); RBC 4.36 m/uL (4.30-5.90); RDW 18.6 % (11.5-15.5); WBC 11.1 k/uL (3.8-10.6)
[2017-10-30 15:29] LABS: Calcium 9.5 mg/dL (8.4-10.2); Magnesium 1.6 mg/dL (1.6-2.3); Phosphorus 3.5 mg/dL (2.5-4.5); Potassium 4.7 mmol/L (3.5-5.1); Total Bilirubin 0.1 mg/dL (0.2-1.3); Total Protein 6.8 g/dL (6.3-8.2)
[2017-10-30 15:49] LABS: Poikilocytosis (M) Present; Polychromasia Present; Target Cells Present
[2017-10-30 15:50] LABS: Large Platelets Present
[2017-10-30 20:57] LABS: EBV-VCA (IgG) >8.0 AI
== END | disposition home or self-care (01) ==
LOC: LABWHC1 14:08
PROVIDERS: ATTEND Nurse Practitioner Adult Health
DX: Z48.288 Encounter for aftercare following multiple organ transplant (principal); D64.9 Anemia, unspecified
CPT/HCPCS: 36415; 80053; 80197; 83735; 84100; 85025; 85610; 86644; 86645; 86663; 86664; 86665

== ENCOUNTER → 2017-12-04 | Outpatient (CLI) | payer MEDICARE, BC | END | disposition home or self-care (01) | LOC: LABWHC1 12:48 | PROVIDERS: ATTEND Family Medicine | DX: Z53.9 Procedure and treatment not carried out, unspecified reason (principal) ==

== ENCOUNTER 2017-12-12 21:33 | Emergency (ER) | payer MEDICARE, BC ==
[2017-12-12 21:46] VITALS: RESP 18; TEMP 98.2
[2017-12-12] MEDS ORDERED: HYDROmorphone 0.5 MG/0.5 ML SYRINGE IVP STA ×2 (22:07→23:07)
[2017-12-12] MEDS ORDERED: LORazepam 2 MG/ML INJ IV STA (22:23)
[2017-12-12 22:37] LABS: Anisocytosis Slight; Basophils % (A) 0 %; Eosinophils # (A) 0.1 k/uL (0-0.7); Eosinophils % (A) 1 %; HCT 27.4 % (39.0-53.0); Hypochromasia Marked; Lymphocytes # (A) 2.3 k/uL (1.0-4.8); Lymphocytes % (A) 17 %; MCH 23.4 pg (25.0-35.0); MCHC 27.6 g/dL (31.0-37.0); MCV 84.9 fL (80.0-100.0); Mean Platelet Volume 11.2; Monocytes % (A) 7 %; Neutrophils % (A) 73 %; Platelet Count 231 k/uL (150-450); Poikilocytosis Moderate; RBC 3.23 m/uL (4.30-5.90); RDW 17.4 % (11.5-15.5); WBC 13.7 k/uL (3.8-10.6)
[2017-12-12 22:38] LABS: HGB 7.5 gm/dL (13.0-17.5)
[2017-12-12 22:42] LABS: Albumin 3.1 g/dL (3.5-5.0); Calcium 8.5 mg/dL (8.4-10.2); Total Bilirubin 0.4 mg/dL (0.2-1.3); Total Protein 5.9 g/dL (6.3-8.2)
[2017-12-12 22:53] LABS: Potassium 4.6 mmol/L (3.5-5.1)
--- NOTE | 2017-12-12 23:55 | ED ---
General Adult HPI - General Chief complaint: Wound/Laceration Stated complaint: open incision/intestines showing Time Seen by Provider: 12/12/17 21:55 Source: patient, RN notes reviewed, old records reviewed Mode of arrival: ambulatory Limitations: no limitations - History of Present Illness Initial comments: 47-year-old male presents for evaluation. Patient is postop abdominal surgery with bowel resection. This was performed at the [facility]. While driving home patient sneezed and felt sudden pain and wetness in his incisional dressing. Patient's surgeon did call ahead requesting urgent evaluation. Patient is having some pain at the site. Denies significant bleeding. No changes in bowels. No vomiting. No fever or chills. Patient has remote history of stomach, pancreatic, and duodenal transplant. He follows at the [facility] for his surgical needs. He was discharged today. - Related Data Home Medications Medication Instructions Recorded Confirmed Calcium Citrate/Vitamin D3 1 tab PO BID 09/02/13 12/12/17 [Calcium Citrate - Vit D3 Tab] Ferrous Gluconate 325 mg PO BID 09/02/13 12/12/17 Magnesium Gluconate [Magonate] 500 mg PO BID 09/02/13 12/12/17 Multivitamin [Men's Multi-Vitamin] 1 tab PO QAM 09/02/13 12/12/17 Sertraline [Zoloft] 100 mg PO QAM 09/02/13 12/12/17 Tacrolimus [Prograf] 1 mg PO HS 09/02/13 12/12/17 Tacrolimus [Prograf] 2 mg PO QAM 09/02/13 12/12/17 Cholecalciferol (Vitamin D3) 10,000 unit PO QAM 09/22/15 12/12/17 [Vitamin D3] Bbtcic-Ldmuuizb-Nldlqjn [Zenpep 10] 1 cap PO BID 09/22/15 12/12/17 Sulfamethoxazole/Trimethoprim 0.5 tab PO MOWEFR 08/02/16 12/12/17 [Bactrim DS 800-160 mg] Albuterol Sulfate [Proair Hfa] 1 - 2 puff INHALATION RT-Q6H PRN 12/19/16 Fludrocortisone [Florinef] 0.1 mg PO DAILY 12/19/16 12/12/17 traZODone HCL 100 mg PO HS 12/19/16 12/12/17 Methadone HCl [Dolophine HCl] 5 mg PO HS 03/23/17 12/12/17 Sucralfate [Carafate] 1 gm PO BID 03/23/17 12/12/17 Budesonide/Formoterol Fumarate 2 puff INHALATION RT-BID 05/17/17 12/12/17 [Symbicort 160-4.5 Mcg Inhaler] Methadone [Dolophine] 10 mg PO QAM 05/17/17 12/12/17 Pyridoxine [Vitamin B-6] 50 mg PO MOWEFR 05/17/17 12/12/17 QUEtiapine [SEROquel] 50 mg PO HS 07/23/17 12/12/17 Copper Gluconate 2mg 2 mg PO BID 12/12/17 12/12/17 Flecainide Acetate [Tambocor] 150 mg PO Q12H 12/12/17 12/12/17 Gabapentin [Neurontin] 400 mg PO TID 12/12/17 12/12/17 Hydrocortisone [Cortef] 35 mg PO TID 12/12/17 12/12/17 Nystatin 100,000 Unit/ml Susp 500,000 unit PO QID 12/12/17 12/12/17 [Mycostatin Oral Susp] Omeprazole 40 mg PO DAILY 12/12/17 12/12/17 Warfarin [Coumadin] 3 mg PO TH 12/12/17 12/12/17 Warfarin [Coumadin] 5 mg PO MOTUWE 12/12/17 12/12/17 clonazePAM [Klonopin ODT Wafer] 0.25 mg PO HS 12/12/17 12/12/17 metroNIDAZOLE [Flagyl] 500 mg PO TID 12/12/17 12/12/17 Allergies Allergy/AdvReac Type Severity Reaction Status Date / Time aspirin Allergy GI Verified 12/12/17 21:55 BLEEDING , ABDOMINAL PAIN heparin AdvReac abdominal Verified 12/12/17 21:55 pain , GI bleeding ketorolac tromethamine AdvReac migraines Verified 12/12/17 21:55 [From Toradol] morphine AdvReac Itching Verified 12/12/17 21:55 Review of Systems ROS Statement: Those systems with pertinent positive or pertinent negative responses have been documented in the HPI. ROS Other: All systems not noted in ROS Statement are negative. Past Medical History Past Medical History: Atrial Fibrillation, COPD, Deep Vein Thrombosis (DVT), GERD/Reflux, Pneumonia, Sleep Apnea/CPAP/BIPAP Additional Past Medical History / Comment(s): Pt had recent admission to [facility] with pneumonia. 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 History of Any Multi-Drug Resistant Organisms: MRSA Date of last positivie culture/infection: 05/29/17 MDRO Source:: BRONCH WASH Additional Past Surgical History / Comment(s): Multivisceral organ transplant including bowel, pancreas, and stomach at [facility]-follows thru [facility], left knee arthrotomy, EGD, colonoscopy, ERCP with insertion of a pancreatic duct stent Past Anesthesia/Blood Transfusion Reactions: No Reported Reaction Additional Past Anesthesia/Blood Transfusion Reaction / Comment(s): STATES R/T TO MULTIPLE SX HE REQUIRES A LOT OF MEDICATION for anesthesia. He has had multiple blood transfusions without reaction. Past Psychological History: Anxiety, Depression Smoking Status: Former smoker - Past Family History Mother History Unknown: Yes Additional Family Medical History / Comment(s): pt is adopted, does not know any hx Father History Unknown: Yes Additional Family Medical History / Comment(s): pt is adopted, does not know any hx General Exam Limitations: no limitations General appearance: alert, in no apparent distress Head exam: Present: atraumatic, normocephalic Eye exam: Present: normal appearance, PERRL, EOMI ENT exam: Present: mucous membranes dry Neck exam: Present: normal inspection. Absent: tenderness, meningismus Respiratory exam: Present: normal lung sounds bilaterally. Absent: respiratory distress, wheezes Cardiovascular Exam: Present: regular rate, normal rhythm GI/Abdominal exam: Present: soft, other (Patient has incisional dehiscence with granulation and some purulent drainage throughout the length of midline abdominal incision. There is approximately 10 cm of evisceration.) Course Vital Signs 12/12/17 12/12/17 12/12/17 21:43 22:20 23:06 Temperature 98.2 F Pulse Rate 97 89 87 Respiratory 18 18 18 Rate Blood Pressure 122/62 143/62 137/71 O2 Sat by Pulse 99 100 95 Oximetry Medical Decision Making - Medical Decision Making 47-year-old male presenting with wound dehiscence and abdominal evisceration. Case is discussed with the patient's surgeon Dr. Magaña, recommends sterile dressing with plastic wrap over. I was able to send him a picture from the emergency department. I discussed the case with the general surgeon on-call at this institution, Dr. Salas. She agrees that sterile dressing with plastic wrap is appropriate. She is able to come to the emergency department and placed this dressing in the emergency department. Patient will be transferred back to [facility] for evaluation by his general surgeon. Accepting physician is Dr. Mack. Patient had reported history of anemia according to his surgeon. Hemoglobin was repeated and this is stable. Patient's vitals remained stable while in the emergency department. He is given pain control while awaiting transfer. - Lab Data Result diagrams: 12/12/17 22:23 12/12/17 22:23 Lab Results 12/12/17 12/12/17 Range/Units 22:23 22:23 WBC 13.7 H (3.8-10.6) k/uL RBC 3.23 L (4.30-5.90) m/uL Hgb 7.5 L D (13.0-17.5) gm/dL Hct 27.4 L (39.0-53.0) % MCV 84.9 (80.0-100.0) fL MCH 23.4 L (25.0-35.0) pg MCHC 27.6 L (31.0-37.0) g/dL RDW 17.4 H (11.5-15.5) % Plt Count 231 (150-450) k/uL Neutrophils % 73 % Lymphocytes % 17 % Monocytes % 7 % Eosinophils % 1 % Basophils % 0 % Neutrophils # 10.0 H (1.3-7.7) k/uL Lymphocytes # 2.3 (1.0-4.8) k/uL Monocytes # 1.0 (0-1.0) k/uL Eosinophils # 0.1 (0-0.7) k/uL Basophils # 0.0 (0-0.2) k/uL Hypochromasia Marked Poikilocytosis Moderate Anisocytosis Slight Sodium 138 (137-145) mmol/L Potassium 4.6 (3.5-5.1) mmol/L Chloride 106 (98-107) mmol/L Carbon Dioxide 25 (22-30) mmol/L Anion Gap 7 mmol/L BUN 27 H (9-20) mg/dL Creatinine 1.16 (0.66-1.25) mg/dL Est GFR (CKD-EPI)AfAm 86 (>60 ml/min/1.73 sqM) Est GFR (CKD-EPI)NonAf 74 (>60 ml/min/1.73 sqM) Glucose 106 H (74-99) mg/dL Calcium 8.5 (8.4-10.2) mg/dL Total Bilirubin 0.4 (0.2-1.3) mg/dL AST 38 (17-59) U/L ALT 25 (21-72) U/L Alkaline Phosphatase 55 (38-126) U/L Total Protein 5.9 L (6.3-8.2) g/dL Albumin 3.1 L (3.5-5.0) g/dL Disposition Clinical Impression: Abdominal wound dehiscence, Evisceration of bowel Disposition: OTHER INSTITUTION NOT DEFINED Condition: Serious Is patient prescribed a controlled substance at d/c from ED?: No Referrals: Ras Zhao MD [Primary Care Provider] - 1-2 days Time of Disposition: 22:45 - Out of Hospital Transfer - Req. Specs Out of Hospital Transfer - Requested Specifics: Other Non-Acute (Transfer to [facility], in [facility].)
[2017-12-13] MEDS ORDERED: LORazepam 2 MG/ML INJ IV STA (00:34)
--- NOTE | 2017-12-13 00:38 | P.GSCN ---
History of Present Illness Consult date: 12/12/17 History of present illness: CHIEF COMPLAINT: Wound dehiscence HISTORY OF PRESENT ILLNESS: The patient is a 47 year old male with history pancreas small bowel transplant at [facility] more than 15-20 years ago. He chronically takes immunosuppressants including steroids. Upon 1 month ago, he obtained his surgical care at [facility] for complicated abdominal wall hernia repair with colostomy creation. He reports being at that hospital for at least 3 weeks and was recently sent home 1 week ago. He was seeing his surgeon in the last 2 days where he had wound complications including infection and wound breakdown. He reports that his wound was recently debrided. Earlier he reported coughing and had immediate separation of this wound hence presentation to the emergency room. The patient was being seen by the emergency room as the patient is being prepared for transfer back to [facility] for wound dehiscence. PAST MEDICAL HISTORY: See list. PAST SURGICAL HISTORY: See list. MEDICATIONS: See list. ALLERGIES: See list. SOCIAL HISTORY: No illicit drug use FAMILY HISTORY: No reports of Crohn's disease or inflammatory bowel disease REVIEW OF ORGAN SYSTEMS: CONSTITUTIONAL: No fevers or chills HEENT: No troubles with vision or hearing. No reports of dysphagia. ENDOCRINE: No reports of thyroid disorders. No diabetes. Pancreatic insufficiency chronic adrenal suppression with chronic steroid use and immunosuppression. CARDIOVASCULAR: No recent heart attack. No recent chest pain. RESPIRATORY: Has shortness of breath and asthma. GASTROINTESTINAL: See above. A recent history of multiple abdominal surgeries including colostomy operation. NEURO: No reports of recent stroke or seizure disorders. Has chronic pain PSYCH: No suicidal ideation. Has depression. HEMATOLOGIC: He is on chronic anticoagulation. Past history of vascular graft thrombosis. LYMPHATIC: The patient denies any lumps and bumps around the neck. GENITOURINARY: Denies any blood in urine or increased urinary frequency. MUSCULOSKELETAL: Has back pain, stiffness and joint arthritis. SKIN: No skin cancer or rash per PHYSICAL EXAM: VITAL SIGNS: Currently stable. GENERAL: Well-developed in mild distress. HEENT: No sclera icterus. Extraocular movements grossly intact. Moist buccal mucosa. Head is atraumatic, normocephalic. Hears conversational speech. No nasal drainage. NECK: Supple without lymphadenopathy. CHEST: Non-labored respirations and equal bilateral excursions. CARDIOVASCULAR: Regular rate with regular rhythm. Palpable 2+ radial pulses. ABDOMEN: Soft. Mildly distended. Midline incision of 26 x 9 cm in greatest dimension with moderate chronic fat necrosis noted along the mid two thirds of the wound. Pressence of retention sutures of the proximal third of the incision. Complete separation of wound edges noted along the distal third aspect with small bowel exposure however with appearance of chronic fibrosis of dehiscence measuring 6 x 6 cm. Small bowel pink and viable. No overt evisceration of bowel identified. Colostomy along right lower quadrant patent functioning with stool in Coloplast. Peritonitis. Cellulitic changes along the wound edges noted along the mid to distal third of wound. MUSCULOSKELETAL: No clubbing, cyanosis or edema. NEUROLOGIC: No focal or lateralizing signs. Cranial nerves II through XII grossly intact. PSYCH: Appropriate affect. Alert and oriented to person, place and time. SKIN: Well perfused. Good skin turgor. LABS: Reviewed ASSESSMENT: 1. Acute wound dehiscence of chronic surgical wound 2. History of small bowel pancreas transplant 3. Immunosuppressive therapy 4. Chronic steroid use 5. History of multiple abdominal wall surgeries with complicated chronic surgical wound over 3+ weeks duration 6. Colostomy status, right lower quadrant PLAN: 1. Patient's been scheduled for transfer back to [facility] 2. I have been asked to assess and prepare the wound to minimize risk for evisceration. PROCEDURE: Temporary covering of acute abdominal wall dehiscence 6 x 6 cm DETAILS: After discussion of the planned event, verbal consent was given. Patient was laid supine after lowering the head of the bed. His dressing including ABD was taken down. A sterile field was created using a minor procedure tray and a x-ray sterile plastic covering. The wound was assessed with measurements noted including moderate chronic fat necrosis of the wound over 70% of the midline. Wound dehiscence noted at least 6 x 6 cm with small bowel exposed and features of chronic fibrosis. The small bowel remained within the abdomen and without overt evisceration. Using sterile gauze and draping, the previous gauze was removed and was fairly dry despite being initially moist. Next, a pack a 4 x 4 gauze was soaked in sterile normal saline solution and placed immediately over midline wound and depth of the wound. Next, sterile x-ray plastic draping was cut to size of 30 x 10 cm to cover length and breath of wound without exposure to colostomy. Using sterile paper drape, the draping was placed over the plastic surface of the x-ray plastic. Using surgical foam tape, the dressing was reinforced as a pressure dressing using initially a transverse placement including oblique placement extending from the bilateral flanks to the hips on each side. Finally, abdominal binder was fit snug over the abdomen with opening for his colostomy. At least 2 abdominal binders was placed reinforcement of his dressing. At the end of the procedure, patient felt secure with his dressings and coverage. Patient tolerated the procedure well. Critical care time: 39 minutes Thank you for this kind consultation. Past Medical History Past Medical History: Atrial Fibrillation, COPD, Deep Vein Thrombosis (DVT), GERD/Reflux, Pneumonia, Sleep Apnea/CPAP/BIPAP Additional Past Medical History / Comment(s): Pt had recent admission to [facility] with pneumonia. 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 History of Any Multi-Drug Resistant Organisms: MRSA Year Discovered:: 05/29/17 MDRO Source:: BRONCH WASH Additional Past Surgical History / Comment(s): Multivisceral organ transplant including bowel, pancreas, and stomach at [facility]-follows thru [facility], left knee arthrotomy, EGD, colonoscopy, ERCP with insertion of a pancreatic duct stent Past Anesthesia/Blood Transfusion Reactions: No Reported Reaction Additional Past Anesthesia/Blood Transfusion Reaction / Comm: STATES R/T TO MULTIPLE SX HE REQUIRES A LOT OF MEDICATION for anesthesia. He has had multiple blood transfusions without reaction. Past Psychological History: Anxiety, Depression Smoking Status: Former smoker - Past Family History Mother History Unknown: Yes Additional Family Medical History / Comment(s): pt is adopted, does not know any hx Father History Unknown: Yes Additional Family Medical History / Comment(s): pt is adopted, does not know any hx Medications and Allergies Home Medications Medication Instructions Recorded Confirmed Type Calcium Citrate/Vitamin D3 1 tab PO BID 09/02/13 12/12/17 History [Calcium Citrate - Vit D3 Tab] Ferrous Gluconate 325 mg PO BID 09/02/13 12/12/17 History Magnesium Gluconate [Magonate] 500 mg PO BID 09/02/13 12/12/17 History Multivitamin [Men's Multi-Vitamin] 1 tab PO QAM 09/02/13 12/12/17 History Sertraline [Zoloft] 100 mg PO QAM 09/02/13 12/12/17 History Tacrolimus [Prograf] 1 mg PO HS 09/02/13 12/12/17 History Tacrolimus [Prograf] 2 mg PO QAM 09/02/13 12/12/17 History Cholecalciferol (Vitamin D3) 10,000 unit PO QAM 09/22/15 12/12/17 History [Vitamin D3] Cbbybu-Ouizwjbw-Mgygiju [Zenpep 10] 1 cap PO BID 09/22/15 12/12/17 History Sulfamethoxazole/Trimethoprim 0.5 tab PO MOWEFR 08/02/16 12/12/17 History [Bactrim DS 800-160 mg] Albuterol Sulfate [Proair Hfa] 1 - 2 puff INHALATION RT-Q6H PRN 12/19/16 History Fludrocortisone [Florinef] 0.1 mg PO DAILY 12/19/16 12/12/17 History traZODone HCL 100 mg PO HS 12/19/16 12/12/17 History Methadone HCl [Dolophine HCl] 5 mg PO HS 03/23/17 12/12/17 History Sucralfate [Carafate] 1 gm PO BID 03/23/17 12/12/17 History Budesonide/Formoterol Fumarate 2 puff INHALATION RT-BID 05/17/17 12/12/17 History [Symbicort 160-4.5 Mcg Inhaler] Methadone [Dolophine] 10 mg PO QAM 05/17/17 12/12/17 History Pyridoxine [Vitamin B-6] 50 mg PO MOWEFR 05/17/17 12/12/17 History QUEtiapine [SEROquel] 50 mg PO HS 07/23/17 12/12/17 History Copper Gluconate 2mg 2 mg PO BID 12/12/17 12/12/17 History Flecainide Acetate [Tambocor] 150 mg PO Q12H 12/12/17 12/12/17 History Gabapentin [Neurontin] 400 mg PO TID 12/12/17 12/12/17 History Hydrocortisone [Cortef] 35 mg PO TID 12/12/17 12/12/17 History Nystatin 100,000 Unit/ml Susp 500,000 unit PO QID 12/12/17 12/12/17 History [Mycostatin Oral Susp] Omeprazole 40 mg PO DAILY 12/12/17 12/12/17 History Warfarin [Coumadin] 3 mg PO TH 12/12/17 12/12/17 History Warfarin [Coumadin] 5 mg PO MOTUWE 12/12/17 12/12/17 History clonazePAM [Klonopin ODT Wafer] 0.25 mg PO HS 12/12/17 12/12/17 History metroNIDAZOLE [Flagyl] 500 mg PO TID 12/12/17 12/12/17 History Allergies Allergy/AdvReac Type Severity Reaction Status Date / Time aspirin Allergy GI Verified 12/12/17 21:55 BLEEDING , ABDOMINAL PAIN heparin AdvReac abdominal Verified 12/12/17 21:55 pain , GI bleeding ketorolac tromethamine AdvReac migraines Verified 12/12/17 21:55 [From Toradol] morphine AdvReac Itching Verified 12/12/17 21:55 Surgical - Exam Vital Signs Temp Pulse Resp BP Pulse Ox 98.2 F 97 18 122/62 99 12/12/17 21:43 12/12/17 21:43 12/12/17 21:43 12/12/17 21:43 12/12/17 21:43 Results - Labs 12/12/17 22:23 12/12/17 22:23 Abnormal Lab Results - Last 24 Hours (Table) 12/12/17 12/12/17 Range/Units 22:23 22:23 WBC 13.7 H (3.8-10.6) k/uL RBC 3.23 L (4.30-5.90) m/uL Hgb 7.5 L D (13.0-17.5) gm/dL Hct 27.4 L (39.0-53.0) % MCH 23.4 L (25.0-35.0) pg MCHC 27.6 L (31.0-37.0) g/dL RDW 17.4 H (11.5-15.5) % Neutrophils # 10.0 H (1.3-7.7) k/uL BUN 27 H (9-20) mg/dL Glucose 106 H (74-99) mg/dL Total Protein 5.9 L (6.3-8.2) g/dL Albumin 3.1 L (3.5-5.0) g/dL Diabetes panel 12/12/17 Range/Units 22:23 Sodium 138 (137-145) mmol/L Potassium 4.6 (3.5-5.1) mmol/L Chloride 106 (98-107) mmol/L Carbon Dioxide 25 (22-30) mmol/L BUN 27 H (9-20) mg/dL Creatinine 1.16 (0.66-1.25) mg/dL Glucose 106 H (74-99) mg/dL Calcium 8.5 (8.4-10.2) mg/dL AST 38 (17-59) U/L ALT 25 (21-72) U/L Alkaline Phosphatase 55 (38-126) U/L Total Protein 5.9 L (6.3-8.2) g/dL Albumin 3.1 L (3.5-5.0) g/dL Calcium panel 12/12/17 Range/Units 22:23 Calcium 8.5 (8.4-10.2) mg/dL Albumin 3.1 L (3.5-5.0) g/dL Pituitary panel 12/12/17 Range/Units 22:23 Sodium 138 (137-145) mmol/L Potassium 4.6 (3.5-5.1) mmol/L Chloride 106 (98-107) mmol/L Carbon Dioxide 25 (22-30) mmol/L BUN 27 H (9-20) mg/dL Creatinine 1.16 (0.66-1.25) mg/dL Glucose 106 H (74-99) mg/dL Calcium 8.5 (8.4-10.2) mg/dL Adrenal panel 12/12/17 Range/Units 22:23 Sodium 138 (137-145) mmol/L Potassium 4.6 (3.5-5.1) mmol/L Chloride 106 (98-107) mmol/L Carbon Dioxide 25 (22-30) mmol/L BUN 27 H (9-20) mg/dL Creatinine 1.16 (0.66-1.25) mg/dL Glucose 106 H (74-99) mg/dL Calcium 8.5 (8.4-10.2) mg/dL Total Bilirubin 0.4 (0.2-1.3) mg/dL AST 38 (17-59) U/L ALT 25 (21-72) U/L Alkaline Phosphatase 55 (38-126) U/L Total Protein 5.9 L (6.3-8.2) g/dL Albumin 3.1 L (3.5-5.0) g/dL Assessment and Plan (1) Immunosuppressed status Current Visit: Yes Status: Acute Code(s): D89.9 - DISORDER INVOLVING THE IMMUNE MECHANISM, UNSPECIFIED SNOMED Code(s): 01399180 (2) Steroid dependent for adrenal supression Current Visit: Yes Status: Acute Code(s): Z79.52 - CARE HOME (CURRENT) USE OF SYSTEMIC STEROIDS SNOMED Code(s): 02592672 (3) Anticoagulant long-term use Current Visit: Yes Status: Acute Code(s): Z79.01 - CARE HOME (CURRENT) USE OF ANTICOAGULANTS SNOMED Code(s): 381626139 (4) Abdominal wound dehiscence Current Visit: Yes Status: Acute Code(s): T81.30XA - DISRUPTION OF WOUND, UNSPECIFIED, INITIAL ENCOUNTER SNOMED Code(s): 086468188 (5) Abdominal pain Current Visit: No Status: Acute Code(s): R10.9 - UNSPECIFIED ABDOMINAL PAIN SNOMED Code(s): 00582186 (6) History of intestine transplant Current Visit: No Status: Acute Code(s): Z94.82 - INTESTINE TRANSPLANT STATUS SNOMED Code(s): 087096707
[2017-12-13] MEDS ORDERED: HYDROmorphone 0.5 MG/0.5 ML SYRINGE IVP STA (00:57)
[2017-12-13 02:00] VITALS: BP 118/59; PULSE 94
== END 2017-12-13 02:14 | disposition other institution (70) ==
LOC: EC 21:33
DX: T81.31XA Disruption of external operation (surgical) wound, not elsewhere classified, initial encounter (principal); I48.0 Paroxysmal atrial fibrillation; J44.9 Chronic obstructive pulmonary disease, unspecified; K21.9 Gastro-esophageal reflux disease without esophagitis; F41.9 Anxiety disorder, unspecified; F32.9 Major depressive disorder, single episode, unspecified; G47.33 Obstructive sleep apnea (adult) (pediatric); Z99.89 Dependence on other enabling machines and devices; Z86.14 Personal history of Methicillin resistant Staphylococcus aureus infection; Z94.82 Intestine transplant status; Z94.83 Pancreas transplant status; Z94.89 Other transplanted organ and tissue status; Z98.890 Other specified postprocedural states; Z86.718 Personal history of other venous thrombosis and embolism; Z87.891 Personal history of nicotine dependence; Z79.52 Long term (current) use of systemic steroids; Z79.51 Long term (current) use of inhaled steroids; Z79.891 Long term (current) use of opiate analgesic; Z79.01 Long term (current) use of anticoagulants; Z79.899 Other long term (current) drug therapy; Z88.6 Allergy status to analgesic agent; Z88.8 Allergy status to other drugs, medicaments and biological substances; Z88.5 Allergy status to narcotic agent
CPT/HCPCS: 36415; 80053; 85025; 99285; 96374; 96375; 96376 ×3; J2060 ×2; J1170 ×2

== ENCOUNTER 2018-01-10 10:55 | Emergency (ER) | payer MEDICARE, BC ==
[2018-01-10 11:30] VITALS: RESP 18
[2018-01-10] MEDS ORDERED: HYDROmorphone 1 MG/ML 1 ML SYRINGE IVP STA ×2 (12:53→16:26)
[2018-01-10] MEDS ORDERED: LORazepam 2 MG/ML INJ IV STA ×2 (12:53→17:21)
[2018-01-10] MEDS ORDERED: VANCOMYCIN 2,000 MG in SODIUM CHLORIDE 0.9% 500 ML IVPB STA (13:02)
[2018-01-10] MEDS ORDERED: CEFEPIME 2 GM in SODIUM CHLORIDE 0.9% 50 ML IVPB STA (13:02)
--- NOTE | 2018-01-10 13:02 | ED ---
General Adult HPI - General Chief complaint: Abdominal Pain Stated complaint: post op pain Source: patient Mode of arrival: wheelchair Limitations: no limitations - History of Present Illness Initial comments: Dictation was produced using [employer] dictation software. please excuse any grammatical, word or spelling errors. Chief Complaint: 47-year-old male with extensive abdominal surgical history presents with the dehiscence to abdominal wound. 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 Patient had initial surgery performed at [facility]. 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 Just recently patient has been followed by [facility]. He recently had a couple acute abdominal hernia repaired colostomy creation. Patient was recently admitted to the hospital presently 2 months ago where he was admitted for several days and spares, occasions with abdominal wound infections. Today he called his primary surgeon. He has had wound dehiscence. He called his primary surgeon today and requested that he come to the emergency department for transfer to [facility]. The ROS documented in this emergency department record has been reviewed and confirmed by me. Those systems with pertinent positive or negative responses have been documented in the HPI. All other systems are other negative and/or noncontributory. - Related Data Home Medications Medication Instructions Recorded Confirmed Calcium Citrate/Vitamin D3 1 tab PO BID 09/02/13 01/10/18 [Calcium Citrate - Vit D3 Tab] Ferrous Gluconate 325 mg PO BID 09/02/13 01/10/18 Magnesium Gluconate [Magonate] 500 mg PO BID 09/02/13 01/10/18 Multivitamin [Men's Multi-Vitamin] 1 tab PO QAM 09/02/13 01/10/18 Sertraline [Zoloft] 100 mg PO QAM 09/02/13 01/10/18 Tacrolimus [Prograf] 3 mg PO HS 09/02/13 01/10/18 Tacrolimus [Prograf] 3 mg PO QAM 09/02/13 01/10/18 Cholecalciferol (Vitamin D3) 10,000 unit PO QAM 09/22/15 01/10/18 [Vitamin D3] Sulfamethoxazole/Trimethoprim 0.5 tab PO MOWEFR 08/02/16 01/10/18 [Bactrim DS 800-160 mg] Albuterol Sulfate [Proair Hfa] 1 - 2 puff INHALATION RT-Q6H PRN 12/19/16 traZODone HCL 100 mg PO HS 12/19/16 01/10/18 Methadone HCl [Dolophine HCl] 5 mg PO HS 03/23/17 01/10/18 Sucralfate [Carafate] 1 gm PO BID 03/23/17 01/10/18 Budesonide/Formoterol Fumarate 2 puff INHALATION RT-BID 05/17/17 01/10/18 [Symbicort 160-4.5 Mcg Inhaler] Methadone [Dolophine] 10 mg PO QAM 05/17/17 01/10/18 Pyridoxine [Vitamin B-6] 50 mg PO MOWEFR 05/17/17 01/10/18 QUEtiapine [SEROquel] 50 mg PO HS 07/23/17 01/10/18 Copper Gluconate 2mg 2 mg PO BID 12/12/17 01/10/18 Flecainide Acetate [Tambocor] 150 mg PO Q12H 12/12/17 01/10/18 Gabapentin [Neurontin] 400 mg PO TID 12/12/17 01/10/18 Hydrocortisone [Cortef] 30 mg PO BID 12/12/17 01/10/18 Nystatin 100,000 Unit/ml Susp 500,000 unit PO QID 12/12/17 01/10/18 [Mycostatin Oral Susp] clonazePAM [Klonopin ODT Wafer] 0.25 mg PO HS 12/12/17 01/10/18 HYDROcodone/APAP 10-325MG [[place] 1 tab PO Q6HR PRN 01/10/18 01/10/18 10-325] Pantoprazole Sodium [Protonix] 40 mg PO DAILY 01/10/18 01/10/18 Warfarin [Coumadin] 2.5 mg PO HS 01/10/18 01/10/18 Allergies Allergy/AdvReac Type Severity Reaction Status Date / Time aspirin Allergy GI Verified 01/10/18 15:01 BLEEDING , ABDOMINAL PAIN heparin AdvReac abdominal Verified 01/10/18 15:01 pain , GI bleeding ketorolac tromethamine AdvReac migraines Verified 01/10/18 15:01 [From Toradol] morphine AdvReac Itching Verified 01/10/18 15:01 Review of Systems ROS Statement: Those systems with pertinent positive or pertinent negative responses have been documented in the HPI. ROS Other: All systems not noted in ROS Statement are negative. Past Medical History Past Medical History: Atrial Fibrillation, COPD, Deep Vein Thrombosis (DVT), GERD/Reflux, Pneumonia, Sleep Apnea/CPAP/BIPAP Additional Past Medical History / Comment(s): Pt had recent admission to [facility] with pneumonia. 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 History of Any Multi-Drug Resistant Organisms: MRSA Date of last positivie culture/infection: 05/29/17 MDRO Source:: BRONCH WASH Additional Past Surgical History / Comment(s): Multivisceral organ transplant including bowel, pancreas, and stomach at [facility]-follows thru [facility], left knee arthrotomy, EGD, colonoscopy, ERCP with insertion of a pancreatic duct stent Past Anesthesia/Blood Transfusion Reactions: No Reported Reaction Additional Past Anesthesia/Blood Transfusion Reaction / Comment(s): STATES R/T TO MULTIPLE SX HE REQUIRES A LOT OF MEDICATION for anesthesia. He has had multiple blood transfusions without reaction. Past Psychological History: Anxiety, Depression Smoking Status: Light tobacco smoker Past Alcohol Use History: None Reported Past Drug Use History: None Reported - Past Family History Mother History Unknown: Yes Additional Family Medical History / Comment(s): pt is adopted, does not know any hx Father History Unknown: Yes Additional Family Medical History / Comment(s): pt is adopted, does not know any hx General Exam - General Exam Comments Initial Comments: PHYSICAL EXAM: General Impression: Alert and oriented x3, not in acute distress HEENT: Normocephalic atraumatic, extra-ocular movements intact, pupils equal and reactive to light bilaterally, mucous membranes moist, pale Cardiovascular: Heart regular rate and rhythm, S1&S2 audible, no murmurs, rubs or gallops Chest: Lungs clear to auscultation bilaterally, no rhonchi, no wheeze, no rales Abdomen: Ostomy in place with dark stool in the right lower quadrant. He has abdominal wound with fibrinous tissue. Discharge is malodorous. Musculoskeletal: Pulses present and equal in all extremities, no peripheral edemaabdomen is slightly distended. Motor: Power 5/5 bilaterally, no focal deficits noted Neurological: CN II-XII grossly intact, no focal motor or sensory deficits noted Skin: Intact with no visualized rashes Psych: Normal affect and mood Limitations: no limitations Course Vital Signs 01/10/18 01/10/18 01/10/18 11:28 13:35 14:47 Temperature 98.4 F Pulse Rate 104 H 92 86 Respiratory 18 18 18 Rate Blood Pressure 94/45 138/63 135/63 O2 Sat by Pulse 98 95 95 Oximetry Medical Decision Making - Medical Decision Making ED course: 47-year-old male with complex abdominal surgical history presents with instruction from primary surgeon To the emergency department. Patient recently had prolonged inpatient hospital course secondary to, wound infections. Vital signs upon arrival shows heart rate of 104, blood pressure 94 /45, rest of vital signs within normal limits. Patient given Ativan and Dilaudid. He states his pain is severe however it's at baseline very severe. Patient appears comfortable at this time. Patient is borderline hypotensive and tachycardic. Laboratory evaluation and blood and urine cultures obtained. Patient started on antibiotics.Laboratory evaluation obtained. Leukocytosis of 12.7 which is around patient's baseline. Hemoglobin of 7.5 which is around patient's baseline compared to last lab about a month ago. Metabolic panel is unremarkable. Abdominal labs are negative. Discussed patient case with [facility] who has arranged a bed for transfer. Patient given broad- spectrum antibiotics for possible intra-abdominal infection. Repeat labs are improved. Patient also given intravenous dose. Patient be transferred to [facility]. - Lab Data Result diagrams: 01/10/18 12:01 01/10/18 12:01 Lab Results 01/10/18 01/10/18 Range/Units 12:01 12:01 WBC 12.7 H (3.8-10.6) k/uL RBC 3.21 L (4.30-5.90) m/uL Hgb 7.5 L (13.0-17.5) gm/dL Hct 26.9 L (39.0-53.0) % MCV 83.7 (80.0-100.0) fL MCH 23.2 L (25.0-35.0) pg MCHC 27.7 L (31.0-37.0) g/dL RDW 18.1 H (11.5-15.5) % Plt Count 201 (150-450) k/uL Neutrophils % 86 % Lymphocytes % 9 % Monocytes % 4 % Eosinophils % 0 % Basophils % 0 % Neutrophils # 10.9 H (1.3-7.7) k/uL Lymphocytes # 1.1 (1.0-4.8) k/uL Monocytes # 0.6 (0-1.0) k/uL Eosinophils # 0.0 (0-0.7) k/uL Basophils # 0.0 (0-0.2) k/uL Hypochromasia Marked Poikilocytosis Moderate Anisocytosis Slight Sodium 141 (137-145) mmol/L Potassium 4.3 (3.5-5.1) mmol/L Chloride 105 (98-107) mmol/L Carbon Dioxide 29 (22-30) mmol/L Anion Gap 7 mmol/L BUN 20 (9-20) mg/dL Creatinine 0.98 (0.66-1.25) mg/dL Est GFR (CKD-EPI)AfAm >90 (>60 ml/min/1.73 sqM) Est GFR (CKD-EPI)NonAf >90 (>60 ml/min/1.73 sqM) Glucose 158 H (74-99) mg/dL Calcium 8.3 L (8.4-10.2) mg/dL Magnesium 1.7 (1.6-2.3) mg/dL Total Bilirubin 0.2 (0.2-1.3) mg/dL AST 20 (17-59) U/L ALT 20 L (21-72) U/L Alkaline Phosphatase 74 (38-126) U/L Total Protein 5.5 L (6.3-8.2) g/dL Albumin 2.8 L (3.5-5.0) g/dL Lipase 56 (23-300) U/L Disposition Clinical Impression: Abdominal pain Disposition: OTHER INSTITUTION NOT DEFINED Condition: Fair Referrals: Ras Zhao MD [Primary Care Provider] - 1-2 days Time of Disposition: 15:25 - Out of Hospital Transfer - Req. Specs Out of Hospital Transfer - Requested Specifics: Other Emergency Center ( [facility] for primary surgeon)
[2018-01-10] MEDS ORDERED: SODIUM CHLORIDE 0.9% 1,000 ML IV STA (13:03)
[2018-01-10 13:27] LABS: Anisocytosis Slight; Basophils % (A) 0 %; Eosinophils % (A) 0 %; HCT 26.9 % (39.0-53.0); HGB 7.5 gm/dL (13.0-17.5); Hypochromasia Marked; Lymphocytes # (A) 1.1 k/uL (1.0-4.8); Lymphocytes % (A) 9 %; MCH 23.2 pg (25.0-35.0); MCHC 27.7 g/dL (31.0-37.0); MCV 83.7 fL (80.0-100.0); Mean Platelet Volume 8.7; Monocytes # (A) 0.6 k/uL (0-1.0); Monocytes % (A) 4 %; Neutrophils # (A) 10.9 k/uL (1.3-7.7); Neutrophils % (A) 86 %; Platelet Count 201 k/uL (150-450); Poikilocytosis Moderate; RBC 3.21 m/uL (4.30-5.90); RDW 18.1 % (11.5-15.5); WBC 12.7 k/uL (3.8-10.6)
[2018-01-10 13:34] LABS: ALT 20 U/L (21-72); AST 20 U/L (17-59); Albumin 2.8 g/dL (3.5-5.0); Alkaline Phosphatase 74 U/L (38-126); Anion Gap 7 mmol/L; Blood Urea Nitrogen 20 mg/dL (9-20); Calcium 8.3 mg/dL (8.4-10.2); Carbon Dioxide 29 mmol/L (22-30); Chloride 105 mmol/L (98-107); Glucose 158 mg/dL (74-99); Lipase 56 U/L (23-300); Magnesium 1.7 mg/dL (1.6-2.3); Potassium 4.3 mmol/L (3.5-5.1); Sodium 141 mmol/L (137-145); Total Bilirubin 0.2 mg/dL (0.2-1.3); Total Protein 5.5 g/dL (6.3-8.2)
[2018-01-10 15:44] LABS: Appearance,Urine Clear (Clear); Bilirubin,Urine Negative (Negative); Blood,Urine Negative (Negative); Color,Urine Yellow; Glucose,Urine (UA) Negative (Negative); Ketones,Urine Negative (Negative); Leukocyte Esterase,Urine Negative (Negative); Nitrite,Urine Negative (Negative); PH, Urine 5.5 (5.0-8.0); Protein,Urine Trace (Negative); Specific Gravity,Urine 1.018 (1.001-1.035); Urobilinogen,Urine <2.0 mg/dL (<2.0)
[2018-01-10 18:34] VITALS: BP 147/69; PULSE 85; TEMP 98.6
== END 2018-01-10 18:20 | disposition short-term general hospital (02) ==
LOC: EC 10:55
DX: R10.9 Unspecified abdominal pain (principal); I95.9 Hypotension, unspecified; R00.0 Tachycardia, unspecified; D72.829 Elevated white blood cell count, unspecified; R14.0 Abdominal distension (gaseous); T81.30XA Disruption of wound, unspecified, initial encounter; N18.3 Chronic kidney disease, stage 3 (moderate); J44.9 Chronic obstructive pulmonary disease, unspecified; I48.0 Paroxysmal atrial fibrillation; D64.9 Anemia, unspecified; E27.40 Unspecified adrenocortical insufficiency; G47.33 Obstructive sleep apnea (adult) (pediatric); G89.29 Other chronic pain; F32.9 Major depressive disorder, single episode, unspecified; F41.9 Anxiety disorder, unspecified; K21.9 Gastro-esophageal reflux disease without esophagitis; F17.200 Nicotine dependence, unspecified, uncomplicated; Z88.5 Allergy status to narcotic agent; Z88.6 Allergy status to analgesic agent; Z88.8 Allergy status to other drugs, medicaments and biological substances; Z79.51 Long term (current) use of inhaled steroids; Z79.891 Long term (current) use of opiate analgesic; Z79.52 Long term (current) use of systemic steroids; Z79.01 Long term (current) use of anticoagulants; Z79.899 Other long term (current) drug therapy; Z94.83 Pancreas transplant status; Z94.82 Intestine transplant status; Z98.890 Other specified postprocedural states; Z99.89 Dependence on other enabling machines and devices; Z94.89 Other transplanted organ and tissue status; Z86.718 Personal history of other venous thrombosis and embolism; Z87.738 Personal history of other specified (corrected) congenital malformations of digestive system; Z86.14 Personal history of Methicillin resistant Staphylococcus aureus infection; Z93.3 Colostomy status
CPT/HCPCS: 36415; 80053; 83690; 83735; 85025; 81003; 87040; 87086; 99285; 96365; 96366 ×2; 96367; 96375 ×2; 96376 ×2; J3370; J2060; J0692; J1170

== ENCOUNTER 2018-01-22 21:48 | Emergency (ER) | payer MEDICARE, BC ==
[2018-01-22 21:55] VITALS: RESP 16; TEMP 98.4
[2018-01-22] MEDS ORDERED: PIPERACILLIN-TAZOBACTAM 3.375 GM in DEXTROSE/WATER 1 50ML.BAG IVPB STA (22:06)
[2018-01-22] MEDS ORDERED: HYDROmorphone 1 MG/ML 1 ML SYRINGE IVP STA (22:06)
--- NOTE | 2018-01-22 22:07 | ED ---
General Adult HPI - General Chief complaint: Abdominal Pain Stated complaint: abdominal recheck Time Seen by Provider: 01/22/18 21:53 Source: patient, EMS, RN notes reviewed Limitations: no limitations - History of Present Illness Initial comments: Patient is a pleasant 47-year-old male presenting to the emergency Department with complaints of abdominal discomfort and dehiscence. Patient did have some abdominal discomfort early this evening and took a nap. Around 9:00 patient woke up with increased discomfort and food material coming from his area of dehiscence. Patient has seen her goals. Patient believes these are vehicles and need for lunch. Patient does have history of previous transplant of bowel and other organs. This was in 2002. [facility] Patient has been dealing with wound dehiscence over the past several weeks. Patient has had sutures in place however has been having infections with sutures. Patient has not had had sutures in an several weeks now. Patient has been keeping wound covered just with bandages. Patient states his doctor does not believe and having wound VAC secondary to potential problems with it. - Related Data Home Medications Medication Instructions Recorded Confirmed Calcium Citrate/Vitamin D3 1 tab PO BID 09/02/13 01/22/18 [Calcium Citrate - Vit D3 Tab] Ferrous Gluconate 325 mg PO BID 09/02/13 01/22/18 Multivitamin [Men's Multi-Vitamin] 1 tab PO QAM 09/02/13 01/22/18 Sertraline [Zoloft] 100 mg PO QAM 09/02/13 01/22/18 Tacrolimus [Prograf] 4 mg PO BID 09/02/13 01/22/18 Sulfamethoxazole/Trimethoprim 0.5 tab PO MOWEFR 08/02/16 01/22/18 [Bactrim DS 800-160 mg] Albuterol Sulfate [Proair Hfa] 2 puff INHALATION RT-Q6H PRN 12/19/16 01/22/18 traZODone HCL 100 mg PO HS 12/19/16 01/22/18 Sucralfate [Carafate] 1 gm PO BID 03/23/17 01/22/18 Budesonide/Formoterol Fumarate 2 puff INHALATION RT-BID 05/17/17 01/22/18 [Symbicort 160-4.5 Mcg Inhaler] Methadone [Dolophine] 10 mg PO QAM 05/17/17 01/22/18 Pyridoxine [Vitamin B-6] 50 mg PO MOWEFR 05/17/17 01/22/18 QUEtiapine [SEROquel] 25 mg PO BID 07/23/17 01/22/18 Copper Gluconate 2mg 2 mg PO BID 12/12/17 01/22/18 Flecainide Acetate [Tambocor] 150 mg PO Q12H 12/12/17 01/22/18 Gabapentin [Neurontin] 400 mg PO TID 12/12/17 01/22/18 Hydrocortisone [Cortef] 30 mg PO BID 12/12/17 01/22/18 Nystatin 100,000 Unit/ml Susp 500,000 unit PO QID 12/12/17 01/22/18 [Mycostatin Oral Susp] clonazePAM [Klonopin ODT Wafer] 0.25 mg PO HS 12/12/17 01/22/18 HYDROcodone/APAP 10-325MG [[place] 1 tab PO Q6HR PRN 01/10/18 01/22/18 10-325] Pantoprazole Sodium [Protonix] 40 mg PO BID 01/10/18 01/22/18 Warfarin [Coumadin] 2.5 mg PO HS 01/10/18 01/22/18 Calcium Carbonate [Tums] 500 mg PO QID 01/22/18 01/22/18 Cholecalciferol [Vitamin D3] 5,000 unit PO MOWEFR 01/22/18 01/22/18 Doxycycline Monohydrate [Monodox] 100 mg PO BID 01/22/18 01/22/18 Ipratropium [place] [Atrovent Hfa] 2 puff INHALATION RT-QID PRN 01/22/18 Magnesium Oxide [Mag-Ox] 500 mg PO BID 01/22/18 01/22/18 Methadone [Dolophine] 5 mg PO HS 01/22/18 01/22/18 Sod Phos Di, [place]/K Phos [place] 250 mg PO ACHS 01/22/18 01/22/18 [K-Phos Neutral Tablet] Allergies Allergy/AdvReac Type Severity Reaction Status Date / Time aspirin Allergy GI Verified 01/22/18 22:08 BLEEDING , ABDOMINAL PAIN heparin AdvReac abdominal Verified 01/22/18 22:08 pain , GI bleeding ketorolac tromethamine AdvReac migraines Verified 01/22/18 22:08 [From Toradol] morphine AdvReac Itching Verified 01/22/18 22:08 Review of Systems ROS Statement: Those systems with pertinent positive or pertinent negative responses have been documented in the HPI. ROS Other: All systems not noted in ROS Statement are negative. Constitutional: Denies: fever Eyes: Denies: eye pain ENT: Denies: ear pain Respiratory: Denies: cough Cardiovascular: Denies: chest pain Endocrine: Denies: fatigue Gastrointestinal: Reports: abdominal pain Genitourinary: Denies: dysuria Musculoskeletal: Denies: back pain Skin: Denies: rash Neurological: Denies: weakness Past Medical History Past Medical History: Atrial Fibrillation, COPD, Deep Vein Thrombosis (DVT), GERD/Reflux, Pneumonia, Sleep Apnea/CPAP/BIPAP Additional Past Medical History / Comment(s): Pt had recent admission to [facility] with pneumonia. 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 History of Any Multi-Drug Resistant Organisms: MRSA Date of last positivie culture/infection: 05/29/17 MDRO Source:: BRONCH WASH Additional Past Surgical History / Comment(s): Multivisceral organ transplant including bowel, pancreas, and stomach at [facility]-follows thru [facility], left knee arthrotomy, EGD, colonoscopy, ERCP with insertion of a pancreatic duct stent. colostomy bag Past Anesthesia/Blood Transfusion Reactions: No Reported Reaction Additional Past Anesthesia/Blood Transfusion Reaction / Comment(s): STATES R/T TO MULTIPLE SX HE REQUIRES A LOT OF MEDICATION for anesthesia. He has had multiple blood transfusions without reaction. Past Psychological History: Anxiety, Depression Smoking Status: Light tobacco smoker Past Alcohol Use History: None Reported Past Drug Use History: None Reported - Past Family History Mother History Unknown: Yes Additional Family Medical History / Comment(s): pt is adopted, does not know any hx Father History Unknown: Yes Additional Family Medical History / Comment(s): pt is adopted, does not know any hx General Exam Limitations: no limitations General appearance: alert Head exam: Present: atraumatic Eye exam: Present: normal appearance, PERRL ENT exam: Present: normal oropharynx Neck exam: Present: normal inspection Respiratory exam: Present: normal lung sounds bilaterally Cardiovascular Exam: Present: tachycardia GI/Abdominal exam: Present: soft, distended, tenderness, other (Patient does have open area in the mid abdomen of wound dehiscence. There is active excretion of bowel material from the area of wound dehiscence) Extremities exam: Present: normal inspection Neurological exam: Present: alert Psychiatric exam: Present: normal affect, normal mood Skin exam: Present: normal color Course Vital Signs 01/22/18 01/22/18 21:50 23:26 Temperature 98.4 F Pulse Rate 123 H 123 H Respiratory 16 16 Rate Blood Pressure 142/114 135/63 O2 Sat by Pulse 97 97 Oximetry - Reevaluation(s) Reevaluation #1: 01/22/18 22:11 Case was discussed in detail with Dr. Salas who is somewhat familiar with this patient. She does recommend immediately getting in touch with [facility] for transfer. 01/22/18 22:23 Case was discussed with transfer team at [facility] as well as nurse practitioner Milvia with transplant team. Chest good did speak with Dr. Johnson who does want patient transferred as soon as possible. He agrees surgical care will best be provided there. He does request patient be transferred by air and [facility] transfer team is going to send the unit. They estimate they can be here within 45 minutes. They're working on bed assignment and realized this is stat and will, as soon as that happens. Milvia states Dr. Johnson also recommended Zosyn and vancomycin and Flagyl. 01/22/18 22:30 Dr. Salas updated again and notified. Patient and family notified. 01/22/18 22:38 Case also discussed with Dr. Black with surgical ICU who will accept patient. 01/22/18 22:52 Fluid bolus provided based on ideal body weight of 86.2 kg. EKG Findings - EKG Comments: EKG Findings:: A flutter with 21 conduction rate 122. QRS 88. QT 312. QTC 444. Normal axis. Normal QRS. Nonspecific T waves. Medical Decision Making - Lab Data Result diagrams: 01/22/18 21:56 01/22/18 21:56 Lab Results 01/22/18 01/22/18 01/22/18 Range/Units 21:56 21:56 21:56 WBC 11.6 H (3.8-10.6) k/uL RBC 3.67 L (4.30-5.90) m/uL Hgb 8.4 L (13.0-17.5) gm/dL Hct 32.2 L (39.0-53.0) % MCV 87.9 (80.0-100.0) fL MCH 23.0 L (25.0-35.0) pg MCHC 26.1 L (31.0-37.0) g/dL RDW 17.2 H (11.5-15.5) % Plt Count 161 (150-450) k/uL Neutrophils % 69 % Lymphocytes % 20 % Monocytes % 7 % Eosinophils % 1 % Basophils % 1 % Neutrophils # 8.1 H (1.3-7.7) k/uL Lymphocytes # 2.3 (1.0-4.8) k/uL Monocytes # 0.8 (0-1.0) k/uL Eosinophils # 0.1 (0-0.7) k/uL Basophils # 0.1 (0-0.2) k/uL Hypochromasia Marked Poikilocytosis Moderate Anisocytosis Slight PT (9.0-12.0) sec INR (<1.2) APTT (22.0-30.0) sec Sodium 140 (137-145) mmol/L Potassium 4.4 (3.5-5.1) mmol/L Chloride 112 H (98-107) mmol/L Carbon Dioxide 17 L (22-30) mmol/L Anion Gap 11 mmol/L BUN 32 H (9-20) mg/dL Creatinine 1.64 H (0.66-1.25) mg/dL Est GFR (CKD-EPI)AfAm 56 (>60 ml/min/1.73 sqM) Est GFR (CKD-EPI)NonAf 48 (>60 ml/min/1.73 sqM) Glucose 80 (74-99) mg/dL Plasma Lactic Acid [place] 4.1 H* (0.7-2.0) mmol/L Calcium 8.5 (8.4-10.2) mg/dL Total Bilirubin <0.1 L (0.2-1.3) mg/dL AST 21 (17-59) U/L ALT 19 L (21-72) U/L Alkaline Phosphatase 72 (38-126) U/L Total Protein 5.9 L (6.3-8.2) g/dL Albumin 3.1 L (3.5-5.0) g/dL 01/22/18 Range/Units 21:56 WBC (3.8-10.6) k/uL RBC (4.30-5.90) m/uL Hgb (13.0-17.5) gm/dL Hct (39.0-53.0) % MCV (80.0-100.0) fL MCH (25.0-35.0) pg MCHC (31.0-37.0) g/dL RDW (11.5-15.5) % Plt Count (150-450) k/uL Neutrophils % % Lymphocytes % % Monocytes % % Eosinophils % % Basophils % % Neutrophils # (1.3-7.7) k/uL Lymphocytes # (1.0-4.8) k/uL Monocytes # (0-1.0) k/uL Eosinophils # (0-0.7) k/uL Basophils # (0-0.2) k/uL Hypochromasia Poikilocytosis Anisocytosis PT 13.8 H (9.0-12.0) sec INR 1.5 H (<1.2) APTT 22.5 (22.0-30.0) sec Sodium (137-145) mmol/L Potassium (3.5-5.1) mmol/L Chloride (98-107) mmol/L Carbon Dioxide (22-30) mmol/L Anion Gap mmol/L BUN (9-20) mg/dL Creatinine (0.66-1.25) mg/dL Est GFR (CKD-EPI)AfAm (>60 ml/min/1.73 sqM) Est GFR (CKD-EPI)NonAf (>60 ml/min/1.73 sqM) Glucose (74-99) mg/dL Plasma Lactic Acid [place] (0.7-2.0) mmol/L Calcium (8.4-10.2) mg/dL Total Bilirubin (0.2-1.3) mg/dL AST (17-59) U/L ALT (21-72) U/L Alkaline Phosphatase (38-126) U/L Total Protein (6.3-8.2) g/dL Albumin (3.5-5.0) g/dL - Radiology Data Radiology results: image reviewed (Abdominal x-ray shows no acute changes. Chest x-ray shows no acute findings.) Critical Care Time Critical Care Time: Yes Total Critical Care Time: 31 Disposition Clinical Impression: Rupture of bowel, History of intestine transplant Disposition: OTHER INSTITUTION NOT DEFINED Condition: Critical Is patient prescribed a controlled substance at d/c from ED?: No Referrals: Ras Zhao MD [Primary Care Provider] - 1-2 days - Out of Hospital Transfer - Req. Specs Out of Hospital Transfer - Requested Specifics: Other Emergency Center
[2018-01-22] MEDS ORDERED: SODIUM CHLORIDE 0.9% 500 ML 500 ML IV SCH (22:15)
[2018-01-22] MEDS ORDERED: ONDANSETRON 4 MG/2 ML VIAL IVP STA (22:16)
[2018-01-22 22:25] LABS: Anisocytosis Slight; Basophils # (A) 0.1 k/uL (0-0.2); Basophils % (A) 1 %; Eosinophils # (A) 0.1 k/uL (0-0.7); Eosinophils % (A) 1 %; HCT 32.2 % (39.0-53.0); HGB 8.4 gm/dL (13.0-17.5); Hypochromasia Marked; Lymphocytes # (A) 2.3 k/uL (1.0-4.8); Lymphocytes % (A) 20 %; MCHC 26.1 g/dL (31.0-37.0); MCV 87.9 fL (80.0-100.0); Mean Platelet Volume 7.2; Monocytes # (A) 0.8 k/uL (0-1.0); Monocytes % (A) 7 %; Neutrophils # (A) 8.1 k/uL (1.3-7.7); Neutrophils % (A) 69 %; Platelet Count 161 k/uL (150-450); Poikilocytosis Moderate; RBC 3.67 m/uL (4.30-5.90); RDW 17.2 % (11.5-15.5); WBC 11.6 k/uL (3.8-10.6)
[2018-01-22] MEDS ORDERED: metroNIDAZOLE-NS PMX 500 MG in SALINE 1 100ML.BAG IVPB STA (22:25)
--- NOTE | 2018-01-22 22:29 | XR ---
EXAMINATION TYPE: XR abdomen 1V DATE OF EXAM: 01/22/2018 COMPARISON: 08/20/2017 HISTORY: Abdominal pain TECHNIQUE: 2 views supine FINDINGS: There is 4 mm calcification over the left kidney. There is no sign of intestinal obstructio n or pneumoperitoneum. Fecal pattern is normal. There is no sign of a mass. IMPRESSION: Left side calcification is unchanged. Nonacute abdomen.
--- NOTE | 2018-01-22 22:31 | XR ---
EXAMINATION TYPE: XR chest 1V portable DATE OF EXAM: 01/22/2018 COMPARISON: 07/25/2017 HISTORY: COPD. Fever. TECHNIQUE: Single frontal view of the chest is obtained. FINDINGS: There is no heart failure nor confluent pneumonic infiltrate. Heart is enlarged. There are chest leads. Costophrenic angles are clear. IMPRESSION: No active cardiopulmonary disease. There is clearing of coarse lung markings compared to old exam.
[2018-01-22] MEDS ORDERED: SODIUM CHLORIDE 0.9% 1,000 ML IV STA ×2 (22:33)
[2018-01-22] MEDS ORDERED: SODIUM CHLORIDE 0.9% 600 ML IV STA (22:33)
[2018-01-22 22:34] LABS: ALT 19 U/L (21-72); AST 21 U/L (17-59); Albumin 3.1 g/dL (3.5-5.0); Alkaline Phosphatase 72 U/L (38-126); Anion Gap 11 mmol/L; Blood Urea Nitrogen 32 mg/dL (9-20); Calcium 8.5 mg/dL (8.4-10.2); Carbon Dioxide 17 mmol/L (22-30); Chloride 112 mmol/L (98-107); Glucose 80 mg/dL (74-99); Potassium 4.4 mmol/L (3.5-5.1); Sodium 140 mmol/L (137-145); Total Bilirubin <0.1 mg/dL (0.2-1.3); Total Protein 5.9 g/dL (6.3-8.2)
[2018-01-22 22:39] LABS: INR 1.5 (<1.2); Partial Thromboplastin Time 22.5 sec (22.0-30.0); Prothrombin Time 13.8 sec (9.0-12.0)
[2018-01-22] MEDS ORDERED: LORazepam 2 MG/ML INJ IV STA (22:41)
[2018-01-22] MEDS ORDERED: VANCOMYCIN 1,500 MG in SODIUM CHLORIDE 0.9% 250 ML IVPB ONE (23:00)
--- NOTE | 2018-01-22 23:23 | P.GSCN ---
History of Present Illness Consult date: 01/22/18 History of present illness: CHIEF COMPLAINT: Wound dehiscence HISTORY OF PRESENT ILLNESS: The patient is a 47 year old male with history pancreas small bowel transplant at [facility] more than 15-20 years ago. He has history of multiple wound complications including wound dehiscence last was 12/12/2017, 6 weeks ago. According to family members, he has multiple revisions of this wound including attempted closures. He was hospitalized at [facility] and discharged 1 week ago. After eating dinner with his family, he had subsequent discharge from his wound of enteric contents, hence his presentation to the emergency room. He has multiple medical comorbidities including he chronically takes immunosuppressants and anticoagulation. PAST MEDICAL HISTORY: See list. PAST SURGICAL HISTORY: See list. MEDICATIONS: See list. ALLERGIES: See list. SOCIAL HISTORY: No illicit drug use FAMILY HISTORY: No reports of Crohn's disease or inflammatory bowel disease REVIEW OF ORGAN SYSTEMS: CONSTITUTIONAL: No fevers or chills HEENT: No troubles with vision or hearing. No reports of dysphagia. ENDOCRINE: No reports of thyroid disorders. No diabetes. Pancreatic insufficiency chronic adrenal suppression with chronic steroid use and immunosuppression. CARDIOVASCULAR: No recent heart attack. No recent chest pain. RESPIRATORY: Has shortness of breath and asthma. GASTROINTESTINAL: See above. A recent history of multiple abdominal surgeries including colostomy operation. NEURO: No reports of recent stroke or seizure disorders. Has chronic pain PSYCH: No suicidal ideation. Has depression. HEMATOLOGIC: He is on chronic anticoagulation. Past history of vascular graft thrombosis. LYMPHATIC: The patient denies any lumps and bumps around the neck. GENITOURINARY: Denies any blood in urine or increased urinary frequency. MUSCULOSKELETAL: Has back pain, stiffness and joint arthritis. SKIN: No skin cancer or rash per PHYSICAL EXAM: VITAL SIGNS: Currently stable. GENERAL: Well-developed in mild distress. HEENT: No sclera icterus. Extraocular movements grossly intact. Moist buccal mucosa. Head is atraumatic, normocephalic. Hears conversational speech. No nasal drainage. NECK: Supple without lymphadenopathy. CHEST: Non-labored respirations and equal bilateral excursions. CARDIOVASCULAR: Tachycardic with regular rate and regular rhythm Palpable 2+ radial pulses. ABDOMEN: Soft. Nondistended. Ostomy pink patent with stool along the right lower quadrant. Occlusive dressing of foam tape across the mid abdomen acting as a compressive device. Photographic images reviewed demonstrating 2 cm area of necrosis along the mid wound. MUSCULOSKELETAL: No clubbing, cyanosis or edema. NEUROLOGIC: No focal or lateralizing signs. Cranial nerves II through XII grossly intact. PSYCH: Appropriate affect. Alert and oriented to person, place and time. SKIN: Well perfused. Good skin turgor. ASSESSMENT: 1. Acute wound dehiscence of chronic surgical wound 2. History of small bowel pancreas transplant 3. Immunosuppressive therapy 4. Chronic steroid use 5. History of multiple abdominal wall surgeries with complicated chronic surgical wound 6. Colostomy status, right lower quadrant PLAN: 1. Discussion with ER provider confirms patient will be sent to [facility] by helicopter. 2. Surgical intervention pending at accepting tertiary care center Past Medical History Past Medical History: Atrial Fibrillation, COPD, Deep Vein Thrombosis (DVT), GERD/Reflux, Pneumonia, Sleep Apnea/CPAP/BIPAP Additional Past Medical History / Comment(s): Pt had recent admission to [facility] with pneumonia. 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 History of Any Multi-Drug Resistant Organisms: MRSA Year Discovered:: 05/29/17 MDRO Source:: BRON[place] WASH Additional Past Surgical History / Comment(s): Multivisceral organ transplant including bowel, pancreas, and stomach at [facility]-follows thru [facility], left knee arthrotomy, EGD, colonoscopy, ERCP with insertion of a pancreatic duct stent. colostomy bag Past Anesthesia/Blood Transfusion Reactions: No Reported Reaction Additional Past Anesthesia/Blood Transfusion Reaction / Comm: STATES R/T TO MULTIPLE SX HE REQUIRES A LOT OF MEDICATION for anesthesia. He has had multiple blood transfusions without reaction. Past Psychological History: Anxiety, Depression Smoking Status: Light tobacco smoker Past Alcohol Use History: None Reported Past Drug Use History: None Reported - Past Family History Mother History Unknown: Yes Additional Family Medical History / Comment(s): pt is adopted, does not know any hx Father History Unknown: Yes Additional Family Medical History / Comment(s): pt is adopted, does not know any hx Medications and Allergies Home Medications Medication Instructions Recorded Confirmed Type Calcium Citrate/Vitamin D3 1 tab PO BID 09/02/13 01/22/18 History [Calcium Citrate - Vit D3 Tab] Ferrous Gluconate 325 mg PO BID 09/02/13 01/22/18 History Multivitamin [Men's Multi-Vitamin] 1 tab PO QAM 09/02/13 01/22/18 History Sertraline [Zoloft] 100 mg PO QAM 09/02/13 01/22/18 History Tacrolimus [Prograf] 4 mg PO BID 09/02/13 01/22/18 History Sulfamethoxazole/Trimethoprim 0.5 tab PO MOWEFR 08/02/16 01/22/18 History [Bactrim DS 800-160 mg] Albuterol Sulfate [Proair Hfa] 2 puff INHALATION RT-Q6H PRN 12/19/16 01/22/18 History traZODone HCL 100 mg PO HS 12/19/16 01/22/18 History Sucralfate [Carafate] 1 gm PO BID 03/23/17 01/22/18 History Budesonide/Formoterol Fumarate 2 puff INHALATION RT-BID 05/17/17 01/22/18 History [Symbicort 160-4.5 Mcg Inhaler] Methadone [Dolophine] 10 mg PO QAM 05/17/17 01/22/18 History Pyridoxine [Vitamin B-6] 50 mg PO MOWEFR 05/17/17 01/22/18 History QUEtiapine [SEROquel] 25 mg PO BID 07/23/17 01/22/18 History Copper Gluconate 2mg 2 mg PO BID 12/12/17 01/22/18 History Flecainide Acetate [Tambocor] 150 mg PO Q12H 12/12/17 01/22/18 History Gabapentin [Neurontin] 400 mg PO TID 12/12/17 01/22/18 History Hydrocortisone [Cortef] 30 mg PO BID 12/12/17 01/22/18 History Nystatin 100,000 Unit/ml Susp 500,000 unit PO QID 12/12/17 01/22/18 History [Mycostatin Oral Susp] clonazePAM [Klonopin ODT Wafer] 0.25 mg PO HS 12/12/17 01/22/18 History HYDROcodone/APAP 10-325MG [[place] 1 tab PO Q6HR PRN 01/10/18 01/22/18 History 10-325] Pantoprazole Sodium [Protonix] 40 mg PO BID 01/10/18 01/22/18 History Warfarin [Coumadin] 2.5 mg PO HS 01/10/18 01/22/18 History Calcium Carbonate [Tums] 500 mg PO QID 01/22/18 01/22/18 History Cholecalciferol [Vitamin D3] 5,000 unit PO MOWEFR 01/22/18 01/22/18 History Doxycycline Monohydrate [Monodox] 100 mg PO BID 01/22/18 01/22/18 History Ipratropium [place] [Atrovent Hfa] 2 puff INHALATION RT-QID PRN 01/22/18 History Magnesium Oxide [Mag-Ox] 500 mg PO BID 01/22/18 01/22/18 History Methadone [Dolophine] 5 mg PO HS 01/22/18 01/22/18 History Sod Phos Di, [place]/K Phos [place] 250 mg PO ACHS 01/22/18 01/22/18 History [K-Phos Neutral Tablet] Allergies Allergy/AdvReac Type Severity Reaction Status Date / Time aspirin Allergy GI Verified 01/22/18 22:08 BLEEDING , ABDOMINAL PAIN heparin AdvReac abdominal Verified 01/22/18 22:08 pain , GI bleeding ketorolac tromethamine AdvReac migraines Verified 01/22/18 22:08 [From Toradol] morphine AdvReac Itching Verified 01/22/18 22:08 Surgical - Exam Vital Signs Temp Pulse Resp BP Pulse Ox 98.4 F 123 H 16 142/114 97 01/22/18 21:50 01/22/18 21:50 01/22/18 21:50 01/22/18 21:50 01/22/18 21:50 Results - Labs 01/22/18 21:56 01/22/18 21:56 Abnormal Lab Results - Last 24 Hours (Table) 01/22/18 01/22/1801/22/18 Range/Units 21:56 21:56 21:56 WBC 11.6 H (3.8-10.6) k/uL RBC 3.67 L (4.30-5.90) m/uL Hgb 8.4 L (13.0-17.5) gm/dL Hct 32.2 L (39.0-53.0) % MCH 23.0 L (25.0-35.0) pg MCHC 26.1 L (31.0-37.0) g/dL RDW 17.2 H (11.5-15.5) % Neutrophils # 8.1 H (1.3-7.7) k/uL PT (9.0-12.0) sec INR (<1.2) Chloride 112 H (98-107) mmol/L Carbon Dioxide 17 L (22-30) mmol/L BUN 32 H (9-20) mg/dL Creatinine 1.64 H (0.66-1.25) mg/dL Plasma Lactic Acid Barrie 4.1 H* (0.7-2.0) mmol/L Total Bilirubin <0.1 L (0.2-1.3) mg/dL ALT 19 L (21-72) U/L Total Protein 5.9 L (6.3-8.2) g/dL Albumin 3.1 L (3.5-5.0) g/dL 01/22/18 Range/Units 21:56 WBC (3.8-10.6) k/uL RBC (4.30-5.90) m/uL Hgb (13.0-17.5) gm/dL Hct (39.0-53.0) % MCH (25.0-35.0) pg MCHC (31.0-37.0) g/dL RDW (11.5-15.5) % Neutrophils # (1.3-7.7) k/uL PT 13.8 H (9.0-12.0) sec INR 1.5 H (<1.2) Chloride (98-107) mmol/L Carbon Dioxide (22-30) mmol/L BUN (9-20) mg/dL Creatinine (0.66-1.25) mg/dL Plasma Lactic Acid Barrie (0.7-2.0) mmol/L Total Bilirubin (0.2-1.3) mg/dL ALT (21-72) U/L Total Protein (6.3-8.2) g/dL Albumin (3.5-5.0) g/dL Diabetes panel 01/22/18 Range/Units 21:56 Sodium 140 (137-145) mmol/L Potassium 4.4 (3.5-5.1) mmol/L Chloride 112 H (98-107) mmol/L Carbon Dioxide 17 L (22-30) mmol/L BUN 32 H (9-20) mg/dL Creatinine 1.64 H (0.66-1.25) mg/dL Glucose 80 (74-99) mg/dL Calcium 8.5 (8.4-10.2) mg/dL AST 21 (17-59) U/L ALT 19 L (21-72) U/L Alkaline Phosphatase 72 (38-126) U/L Total Protein 5.9 L (6.3-8.2) g/dL Albumin 3.1 L (3.5-5.0) g/dL Calcium panel 01/22/18 Range/Units 21:56 Calcium 8.5 (8.4-10.2) mg/dL Albumin 3.1 L (3.5-5.0) g/dL Pituitary panel 01/22/18 Range/Units 21:56 Sodium 140 (137-145) mmol/L Potassium 4.4 (3.5-5.1) mmol/L Chloride 112 H (98-107) mmol/L Carbon Dioxide 17 L (22-30) mmol/L BUN 32 H (9-20) mg/dL Creatinine 1.64 H (0.66-1.25) mg/dL Glucose 80 (74-99) mg/dL Calcium 8.5 (8.4-10.2) mg/dL Adrenal panel 01/22/18 Range/Units 21:56 Sodium 140 (137-145) mmol/L Potassium 4.4 (3.5-5.1) mmol/L Chloride 112 H (98-107) mmol/L Carbon Dioxide 17 L (22-30) mmol/L BUN 32 H (9-20) mg/dL Creatinine 1.64 H (0.66-1.25) mg/dL Glucose 80 (74-99) mg/dL Calcium 8.5 (8.4-10.2) mg/dL Total Bilirubin <0.1 L (0.2-1.3) mg/dL AST 21 (17-59) U/L ALT 19 L (21-72) U/L Alkaline Phosphatase 72 (38-126) U/L Total Protein 5.9 L (6.3-8.2) g/dL Albumin 3.1 L (3.5-5.0) g/dL - Imaging CT scan - abdomen: image reviewed CT scan - pelvis: image reviewed Assessment and Plan (1) History of intestine transplant Current Visit: Yes Status: Acute Code(s): Z94.82 - INTESTINE TRANSPLANT STATUS SNOMED Code(s): 492760119 (2) Rupture of bowel Current Visit: Yes Status: Acute Code(s): K63.1 - PERFORATION OF INTESTINE ( NONTRAUMATIC) SNOMED Code(s): 854884463 (3) Atrial fibrillation Current Visit: No Status: Chronic Code(s): I48.91 - UNSPECIFIED ATRIAL FIBRILLATION SNOMED Code(s): 01202742 (4) History of organ transplantation Current Visit: No Status: Chronic Code(s): Z94.9 - TRANSPLANTED ORGAN AND TISSUE STATUS, UNSPECIFIED SNOMED Code(s): 011818619
--- NOTE | 2018-01-22 23:54 | CT ---
EXAMINATION TYPE: CT abdomen pelvis wo con DATE OF EXAM: 01/22/2018 COMPARISON: 08/18/2017 HISTORY: Prior on synapse, HX. OF MULTIBLE BOWEL OBSTRUCTION, GERD, STOMACH, SMALL BOWEL, DUODENUM, A ND PANCREAS TRANSPLANT. PT HAD RECEMT BOWEL DISECTION AND OSTOMY BAG AT [facility]. PT. STATES HE HEARD A POP AND FLUID BEGAN COMING OUT OF INCISION CT DLP: 886.90 mGycm Automated exposure control for dose reduction was used. TECHNIQUE: Helical acquisition of images was performed from the lung bases through the pelvis. FINDINGS: There is mild subsegmental atelectasis at the left lung base. There is no pleural effusion. Liver emmett ws no focal defect. Stomach is large. There is small hiatal hernia. Spleen is absent. There is a larg e ventral hernia with dehiscence. There are surgical clips in the abdomen. There is right-sided ventr al hernia that contains fat. There is right-sided ileostomy or colostomy at this site. This could be a loop colostomy. Detailed surgical history would be helpful. There is retained fecal material in a s egment of apparent sigmoid colon that is somewhat dilated. The anatomy of the bowel is difficult to i dentify. I do not see dilated bowel to suggest mechanical bowel obstruction. There is no adrenal mass. Kidneys have normal size. There is no hydronephrosis. Ureters are not dilat ed. There is no ascites. Bladder distends smoothly. There is no evidence of a pelvic mass. There is n o inguinal hernia. There is narrowing of L4-5 disc space. I see no bony destructive process. There is no compression fra cture. Bony pelvis is intact. There is no mesenteric edema. There is no free fluid in the abdomen. IMPRESSION: VENTRAL HERNIA WITH DEHISCENCE. THERE IS A STOMA IN THE RIGHT MID ABDOMEN. THIS SURGERY IS NEW COMPAR ED TO OLD EXAM. I DO NOT SEE EVIDENCE FOR A MECHANICAL BOWEL OBSTRUCTION. THERE IS MILDLY DILATED LOO P OF BOWEL AND PROBABLY SIGMOID COLON IN THE MIDABDOMEN UNCHANGED COMPARED TO OLD EXAM. There is bowel at the site of the dehiscence very close to the surface.
[2018-01-23 00:11] VITALS: BP 124/57; PULSE 65
== END 2018-01-23 00:18 | disposition other institution (70) ==
LOC: EC 21:48
DX: K63.1 Perforation of intestine (nontraumatic) (principal); Z94.82 Intestine transplant status; I48.91 Unspecified atrial fibrillation; J44.9 Chronic obstructive pulmonary disease, unspecified; K21.9 Gastro-esophageal reflux disease without esophagitis; G47.33 Obstructive sleep apnea (adult) (pediatric); Z99.89 Dependence on other enabling machines and devices; D64.9 Anemia, unspecified; F32.9 Major depressive disorder, single episode, unspecified; F41.9 Anxiety disorder, unspecified; F17.200 Nicotine dependence, unspecified, uncomplicated; Z86.14 Personal history of Methicillin resistant Staphylococcus aureus infection; Z86.718 Personal history of other venous thrombosis and embolism; N18.3 Chronic kidney disease, stage 3 (moderate); Z79.01 Long term (current) use of anticoagulants; Z79.51 Long term (current) use of inhaled steroids; Z79.899 Other long term (current) drug therapy; Z88.5 Allergy status to narcotic agent; Z88.6 Allergy status to analgesic agent; Z88.8 Allergy status to other drugs, medicaments and biological substances; Z93.3 Colostomy status
CPT/HCPCS: 36415; 80053; 83605; 85025; 85610; 85730; 87040; 71045; 74018; 74176; 99291; 96365; 96366; 96368; 96375 ×3; 96361; J3370; J2060; J2405; J1170; J2543

== ENCOUNTER 2018-02-13 13:57 | Inpatient (IN) | payer MEDICARE, BC ==
[2018-02-13] MEDS ORDERED: SODIUM CHLORIDE 0.9% 1,000 ML IV STA (14:21)
--- NOTE | 2018-02-13 14:29 | ED ---
General Adult HPI - General Chief complaint: Weakness Stated complaint: trouble walking Time Seen by Provider: 02/13/18 14:09 Source: patient, family, RN notes reviewed Mode of arrival: wheelchair Limitations: no limitations - History of Present Illness Initial comments: Patient is a pleasant 47-year-old male presenting to the emergency Department with complaints of generalized weakness. Patient was in the emergency department less than 1 month ago. Patient did have leaking bowel contents and is transferred to [facility]. Mother patient states he was diagnosed with a fistula and he has had an additional ostomy bag placed. Patient is planned to have further surgery in approximately 2 weeks. Patient does have known history of previous stomach and pancreas and swollen chest and transplantation. Patient states he is nothing by mouth and is receiving TPN. Patient feels that he is likely dehydrated. Patient is feeling generally weak and lightheaded. Patient feels thirsty. Patient is also been fatigued. Patient states his blood pressure normally does run low, around 112/50. - Related Data Home Medications Medication Instructions Recorded Confirmed Calcium Citrate/Vitamin D3 1 tab PO BID 09/02/13 02/13/18 [Calcium Citrate - Vit D3 Tab] Ferrous Gluconate 325 mg PO BID 09/02/13 02/13/18 Multivitamin [Men's Multi-Vitamin] 1 tab PO QAM 09/02/13 01/22/18 Sertraline [Zoloft] 100 mg PO QAM 09/02/13 02/13/18 Tacrolimus [Prograf] 1 mg PO BID 09/02/13 02/13/18 Sulfamethoxazole/Trimethoprim 0.5 tab PO MOWEFR 08/02/16 02/13/18 [Bactrim DS 800-160 mg] Albuterol Sulfate [Proair Hfa] 2 puff INHALATION RT-Q6H PRN 12/19/16 02/13/18 traZODone HCL 100 mg PO HS 12/19/16 02/13/18 Sucralfate [Carafate] 1 gm PO BID 03/23/17 02/13/18 Budesonide/Formoterol Fumarate 2 puff INHALATION RT-BID 05/17/17 02/13/18 [Symbicort 160-4.5 Mcg Inhaler] Methadone [Dolophine] 10 mg PO QAM 05/17/17 02/13/18 Pyridoxine [Vitamin B-6] 50 mg PO MOWEFR 05/17/17 01/22/18 QUEtiapine [SEROquel] 25 mg PO BID 07/23/17 02/13/18 Copper Gluconate 2mg 2 mg PO BID 12/12/17 01/22/18 Flecainide Acetate [Tambocor] 150 mg PO Q12H 12/12/17 02/13/18 Gabapentin [Neurontin] 400 mg PO TID 12/12/17 02/13/18 Hydrocortisone [Cortef] 30 mg PO BID 12/12/17 02/13/18 Nystatin 100,000 Unit/ml Susp 500,000 unit PO QID 12/12/17 02/13/18 [Mycostatin Oral Susp] clonazePAM [Klonopin ODT Wafer] 0.25 mg PO HS 12/12/17 02/13/18 HYDROcodone/APAP 10-325MG [[place] 1 tab PO Q6HR PRN 01/10/18 02/13/18 10-325] Pantoprazole Sodium [Protonix] 40 mg PO BID 01/10/18 01/22/18 Warfarin [Coumadin] 2.5 mg PO HS 01/10/18 01/22/18 Calcium Carbonate [Tums] 500 mg PO QID 01/22/18 02/13/18 Cholecalciferol [Vitamin D3] 5,000 unit PO MOWEFR 01/22/18 02/13/18 Doxycycline Monohydrate [Monodox] 100 mg PO BID 01/22/18 01/22/18 Ipratropium [place] [Atrovent Hfa] 2 puff INHALATION RT-QID PRN 01/22/18 Magnesium Oxide [Mag-Ox] 500 mg PO BID 01/22/18 01/22/18 Methadone [Dolophine] 5 mg PO HS 01/22/18 02/13/18 Sod Phos Di, La[place]/K Phos [place] 250 mg PO ACHS 01/22/18 01/22/18 [K-Phos Neutral Tablet] Fondaparinux Sodium [Arixtra] 5 mg SQ DAILY 02/13/18 02/13/18 Allergies Allergy/AdvReac Type Severity Reaction Status Date / Time aspirin Allergy GI Verified 02/13/18 15:20 BLEEDING , ABDOMINAL PAIN heparin AdvReac abdominal Verified 02/13/18 15:20 pain , GI bleeding ketorolac tromethamine AdvReac migraines Verified 02/13/18 15:20 [From Toradol] morphine AdvReac Itching Verified 02/13/18 15:20 Review of Systems ROS Statement: Those systems with pertinent positive or pertinent negative responses have been documented in the HPI. ROS Other: All systems not noted in ROS Statement are negative. Constitutional: Denies: fever Eyes: Denies: eye pain ENT: Denies: ear pain Respiratory: Reports: cough (Occasional cough) Cardiovascular: Denies: chest pain Endocrine: Reports: fatigue Gastrointestinal: Denies: abdominal pain, nausea, vomiting Musculoskeletal: Denies: back pain Skin: Denies: rash Neurological: Denies: headache Past Medical History Past Medical History: Atrial Fibrillation, COPD, Deep Vein Thrombosis (DVT), GERD/Reflux, Pneumonia, Sleep Apnea/CPAP/BIPAP Additional Past Medical History / Comment(s): Pt had recent admission to [facility] with pneumonia. 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 History of Any Multi-Drug Resistant Organisms: MRSA Date of last positivie culture/infection: 05/29/17 MDRO Source:: BRONCH WASH Additional Past Surgical History / Comment(s): Multivisceral organ transplant including bowel, pancreas, and stomach at [facility]-follows thru [facility], left knee arthrotomy, EGD, colonoscopy, ERCP with insertion of a pancreatic duct stent. colostomy bag Past Anesthesia/Blood Transfusion Reactions: No Reported Reaction Additional Past Anesthesia/Blood Transfusion Reaction / Comment(s): STATES R/T TO MULTIPLE SX HE REQUIRES A LOT OF MEDICATION for anesthesia. He has had multiple blood transfusions without reaction. Past Psychological History: Anxiety, Depression Smoking Status: Former smoker Past Alcohol Use History: None Reported Past Drug Use History: None Reported - Past Family History Mother History Unknown: Yes Additional Family Medical History / Comment(s): pt is adopted, does not know any hx Father History Unknown: Yes Additional Family Medical History / Comment(s): pt is adopted, does not know any hx General Exam Limitations: no limitations General appearance: alert, in no apparent distress Head exam: Present: atraumatic Eye exam: Present: normal appearance, PERRL ENT exam: Present: mucous membranes dry Neck exam: Present: normal inspection Respiratory exam: Present: normal lung sounds bilaterally Cardiovascular Exam: Present: regular rate, normal rhythm GI/Abdominal exam: Present: soft, other (2 ostomy bags are present). Absent: distended, tenderness Extremities exam: Present: normal inspection Neurological exam: Present: alert Psychiatric exam: Present: normal affect, normal mood Skin exam: Present: normal color Course Vital Signs 02/13/18 02/13/18 14:02 14:40 Temperature 97.7 F Pulse Rate 96 Respiratory 24 Rate Blood Pressure 85/52 110/56 O2 Sat by Pulse 100 Oximetry EKG Findings - EKG Comments: EKG Findings:: Sinus rhythm at 73. For screening AV block with a IN of 220. QRS 100. QT 424. QTC 467. Normal axis. Normal QRS. No acute ST change. Medical Decision Making - Medical Decision Making Patient reevaluated and updated. Patient resting comfortably in bed. Patient denies having dyspnea. Case was discussed in detail with Dr. stout, who will admit for Dr. Zhao. Patient is not felt to meet sepsis criteria at this time. Abnormalities are related to dehydration and patient's multiple medical problems. Patient is on vancomycin for the past several weeks without new identifiable infection - Lab Data Result diagrams: 02/13/18 14:21 02/13/18 14:21 Lab Results 02/13/18 02/13/18 02/13/18 Range/Units 14:21 14:21 14:21 WBC 13.9 H (3.8-10.6) k/uL RBC 4.27 L (4.30-5.90) m/uL Hgb 10.3 L (13.0-17.5) gm/dL Hct 34.8 L (39.0-53.0) % MCV 81.5 D (80.0-100.0) fL MCH 24.0 L (25.0-35.0) pg MCHC 29.5 L (31.0-37.0) g/dL RDW 17.5 H (11.5-15.5) % Plt Count 238 (150-450) k/uL Neutrophils % 76 % Lymphocytes % 12 % Monocytes % 8 % Eosinophils % 1 % Basophils % 0 % Neutrophils # 10.6 H (1.3-7.7) k/uL Lymphocytes # 1.7 (1.0-4.8) k/uL Monocytes # 1.2 H (0-1.0) k/uL Eosinophils # 0.2 (0-0.7) k/uL Basophils # 0.0 (0-0.2) k/uL Manual Slide Review Performed Large Platelets Present Hypochromasia Marked Poikilocytosis Slight Anisocytosis Slight Microcytosis Slight Target Cells Present Fragmented RBCs Present PT (9.0-12.0) sec INR (<1.2) APTT (22.0-30.0) sec Sodium 141 (137-145) mmol/L Potassium 3.5 (3.5-5.1) mmol/L Chloride 105 (98-107) mmol/L Carbon Dioxide 25 (22-30) mmol/L Anion Gap 11 mmol/L BUN 49 H (9-20) mg/dL Creatinine 1.77 H (0.66-1.25) mg/dL Est GFR (CKD-EPI)AfAm 51 (>60 ml/min/1.73 sqM) Est GFR (CKD-EPI)NonAf 44 (>60 ml/min/1.73 sqM) Glucose 118 H (74-99) mg/dL Plasma Lactic Acid Barrie (0.7-2.0) mmol/L Calcium 9.8 (8.4-10.2) mg/dL Phosphorus 4.1 (2.5-4.5) mg/dL Magnesium 1.9 (1.6-2.3) mg/dL Total Bilirubin 0.3 (0.2-1.3) mg/dL AST 28 (17-59) U/L ALT 41 (21-72) U/L Alkaline Phosphatase 127 H (38-126) U/L Total Creatine Kinase <20 L (55-170) U/L CK-MB (CK-2) 1.1 (0.0-2.4) ng/mL CK-MB (CK-2) Rel Index Troponin I 0.016 (0.000-0.034) ng/mL Total Protein 6.5 (6.3-8.2) g/dL Albumin 3.4 L (3.5-5.0) g/dL TSH 1.320 (0.465-4.680) mIU/L Free T4 1.09 (0.78-2.19) ng/dL Free T3 pg/mL 6.9 H (2.8-5.3) pg/ml Vancomycin Trough ug/mL 02/13/18 02/13/18 02/13/18 Range/Units 14:21 14:21 14:40 WBC (3.8-10.6) k/uL RBC (4.30-5.90) m/uL Hgb (13.0-17.5) gm/dL Hct (39.0-53.0) % MCV (80.0-100.0) fL MCH (25.0-35.0) pg MCHC (31.0-37.0) g/dL RDW (11.5-15.5) % Plt Count (150-450) k/uL Neutrophils % % Lymphocytes % % Monocytes % % Eosinophils % % Basophils % % Neutrophils # (1.3-7.7) k/uL Lymphocytes # (1.0-4.8) k/uL Monocytes # (0-1.0) k/uL Eosinophils # (0-0.7) k/uL Basophils # (0-0.2) k/uL Manual Slide Review Large Platelets Hypochromasia Poikilocytosis Anisocytosis Microcytosis Target Cells Fragmented RBCs PT 9.8 (9.0-12.0) sec INR 1.0 (<1.2) APTT 25.0 (22.0-30.0) sec Sodium (137-145) mmol/L Potassium (3.5-5.1) mmol/L Chloride (98-107) mmol/L Carbon Dioxide (22-30) mmol/L Anion Gap mmol/L BUN (9-20) mg/dL Creatinine (0.66-1.25) mg/dL Est GFR (CKD-EPI)AfAm (>60 ml/min/1.73 sqM) Est GFR (CKD-EPI)NonAf (>60 ml/min/1.73 sqM) Glucose (74-99) mg/dL Plasma Lactic Acid Barrie 2.8 H* (0.7-2.0) mmol/L Calcium (8.4-10.2) mg/dL Phosphorus (2.5-4.5) mg/dL Magnesium (1.6-2.3) mg/dL Total Bilirubin (0.2-1.3) mg/dL AST (17-59) U/L ALT (21-72) U/L Alkaline Phosphatase (38-126) U/L Total Creatine Kinase (55-170) U/L CK-MB (CK-2) (0.0-2.4) ng/mL CK-MB (CK-2) Rel Index Troponin I (0.000-0.034) ng/mL Total Protein (6.3-8.2) g/dL Albumin (3.5-5.0) g/dL TSH (0.465-4.680) mIU/L Free T4 (0.78-2.19) ng/dL Free T3 pg/mL (2.8-5.3) pg/ml Vancomycin Trough 18.3 ug/mL - Radiology Data Radiology results: image reviewed (Chest x-ray shows no acute process, correlate for pulmonary arterial hypertension) Disposition Clinical Impression: Dehydration Disposition: ADMITTED IP TO THIS HOSP Referrals: Ras Zhao MD [Primary Care Provider] - 1-2 days Decision Time: 16:04
[2018-02-13 14:51] LABS: Albumin 3.4 g/dL (3.5-5.0); Prothrombin Time 9.8 sec (9.0-12.0); Total Protein 6.5 g/dL (6.3-8.2)
[2018-02-13 14:55] LABS: Anisocytosis Slight; Basophils % (A) 0 %; Eosinophils # (A) 0.2 k/uL (0-0.7); Eosinophils % (A) 1 %; HCT 34.8 % (39.0-53.0); HGB 10.3 gm/dL (13.0-17.5); Hypochromasia Marked; Lymphocytes # (A) 1.7 k/uL (1.0-4.8); Lymphocytes % (A) 12 %; MCHC 29.5 g/dL (31.0-37.0); Mean Platelet Volume 12.3; Microcytosis Slight; Monocytes # (A) 1.2 k/uL (0-1.0); Monocytes % (A) 8 %; Neutrophils # (A) 10.6 k/uL (1.3-7.7); Neutrophils % (A) 76 %; Platelet Count 238 k/uL (150-450); Poikilocytosis Slight; RBC 4.27 m/uL (4.30-5.90); RDW 17.5 % (11.5-15.5); WBC 13.9 k/uL (3.8-10.6)
[2018-02-13 14:56] LABS: MCV 81.5 fL (80.0-100.0)
[2018-02-13 15:09] LABS: T4, Free (Free Thyroxine) 1.09 ng/dL (0.78-2.19)
--- NOTE | 2018-02-13 15:14 | XR ---
EXAMINATION TYPE: XR chest 2V DATE OF EXAM: 02/13/2018 COMPARISON: Prior chest x-ray dated 01/22/2018 HISTORY: Weakness and dehydration, abnormal chest x-ray TECHNIQUE: Frontal and lateral views of the chest are obtained on 4 images. FINDINGS: There is a central venous catheter via a right jugular approach, distal tip is overlying t he region of the cavoatrial junction. There is no pneumothorax or pleural effusion. Pulmonary artery appears prominently possibly due to pulmonary artery hypertension. Heart appears enlarged and stable. IMPRESSION: No acute cardiopulmonary process. Correlate for pulmonary artery hypertension.
[2018-02-13 15:25] LABS: Large Platelets Present
[2018-02-13 15:26] LABS: RBC Fragments Present; Target Cells Present
[2018-02-13 15:28] LABS: Calcium 9.8 mg/dL (8.4-10.2); Magnesium 1.9 mg/dL (1.6-2.3); Phosphorus 4.1 mg/dL (2.5-4.5); Potassium 3.5 mmol/L (3.5-5.1); Total Bilirubin 0.3 mg/dL (0.2-1.3)
[2018-02-13 15:44] LABS: Creatine Kinase <20 U/L (55-170)
[2018-02-13 15:57] LABS: Creatine Kinase MB 1.1 ng/mL (0.0-2.4); Troponin I 0.016 ng/mL (0.000-0.034)
[2018-02-13] MEDS ORDERED: VANCOMYCIN IV PER PHARMACY 1 EACH MISC MISCELLANE PRN (16:00)
[2018-02-13] MEDS ORDERED: NALOXONE 0.4 MG/ML 1 ML VIAL IV PRN (16:04)
[2018-02-13] MEDS ORDERED: VANCOMYCIN 1,750 MG in SODIUM CHLORIDE 0.9% 500 ML 500 ML IVPB STA (16:41)
[2018-02-13] MEDS: HYDROmorphone 1 MG/ML 1 ML SYRINGE IVP PRN ×2 (19:56→23:47)
[2018-02-13] MEDS: PANTOPRAZOLE 40 MG/10 ML VIAL IV SCH (20:02)
[2018-02-13] MEDS: SODIUM CHLORIDE 0.9% 1,000 ML IV SCH (20:02)
[2018-02-13] MEDS ORDERED: VANCOMYCIN 1,750 MG in SODIUM CHLORIDE 0.9% 500 ML 500 ML IVPB ONE (20:30)
[2018-02-13 20:55] LABS: Appearance,Urine Clear (Clear); Bacteria,Urine Rare /hpf; Bilirubin,Urine Negative (Negative); Blood,Urine Negative (Negative); Color,Urine Yellow; Glucose,Urine (UA) Negative (Negative); Granular Casts,Urine 5 /lpf (0); Hyaline Casts,Urine 8 /lpf (0-2); Ketones,Urine Negative (Negative); Leukocyte Esterase,Urine Negative (Negative); Mucus,Urine Occasional /hpf; Nitrite,Urine Negative (Negative); PH, Urine 5.5 (5.0-8.0); Protein,Urine 1+ (Negative); RBC,Urine 1 /hpf (0-5); Squamous Epithelial Cell,Urine <1 /hpf (0-4); Urobilinogen,Urine <2.0 mg/dL (<2.0); WBC,Urine 2 /hpf (0-5)
[2018-02-13] MEDS ORDERED: SODIUM CHLORIDE 0.9% 1,000 ML IV ONE (21:27)
[2018-02-13] MEDS ORDERED: ANIDULAFUNGIN 200 MG in SODIUM CHLORIDE 0.9% 200 ML IVPB ONE (22:00)
[2018-02-13] MEDS ORDERED: LORazepam 2 MG/ML INJ IV PRN (22:20)
[2018-02-13] MEDS: LORazepam 2 MG/ML INJ IV PRN (22:43)
[2018-02-13] MEDS: OCTREOTIDE 200 MCG in SODIUM CHLORIDE 0.9% 100 ML IVPB SCH (22:56)
[2018-02-13] MEDS ORDERED: HYDROcodone/APAP 10-325MG 1 EACH TAB PO PRN (22:56)
--- NOTE | 2018-02-13 23:50 | P.CONS ---
History of Present Illness - Reason for Consult Consult date: 02/13/18 - Chief Complaint Weakness and dehydration - History of Present Illness 47-year-old male well known to the service regarding his history of his multi organ transplant in 2002. He has had many complications regarding his transplants but more prudent is that during this past summer he's been having increasing difficulties with his abdomen. Apparently there was evidence of [id number] in significant inflammation of the small bowel. He constantly underwent explorative laparotomy with lysis of adhesions and placement of an ileostomy. The patient has had significant difficulties with the abdominal cavity since that point in time with the development of significant fistula enlargement of drainage through the anterior abdominal wall. He's been following the [facility] where he recently was admitted with evidence of MRSA infection and fungal infection. He is receiving vancomycin therapy and micafungin. Patient was started feel poorly increasing weakness evidence of significant dehydration and consequently presented to the emergency center. There was evidence of dehydration with acute renal failure and the patient was admitted. Due to the many complex infection issues the ID consultation was requested. The patient does feel poorly is anxious to get home. He has been receiving TPN to try to allow healing of the fistulas and rest his gastrointestinal tract. Also receiving the outpatient intravenous antibiotic therapy for the significant infection. Sandostatin has also been started to try to reduce the amount of drainage through the fistula tracts. The patient is due back at the [facility] on February 24. He's been hospitalized and was continuously since the middle of summer. Review of Systems Patient feels poorly HEENT:Denies headache or acute visual change. Recent difficulties with his sinuses have improved. Ears have also improved. Denies neck stiffness Lungs: Denies significant shortness of breath, cough, sputum production, or hemoptysis. Cardiovascular: Denies significant shortness of breath, chest pain, chest wall pain, orthopnea, dyspnea on exertion, syncope Gastrointestinal: As per the HPI chronic abdominal pain drainage sinus tracts little output from his ileostomy at this time Musculoskeletal: denies significant myalgias or arthralgias. No new joint swelling. Denies new back pain. Skin: Denies new rash or lesions. No new ulcers or wounds are related.. Neuro: Denies headache or visual change. Denies any new onset weakness or difficulty with ambulation. Denies falls or seizures. Psychiatric: No acute change Endocrine: Chronic fatigue weight is stable with TPN Past Medical History Past Medical History: Atrial Fibrillation, COPD, Deep Vein Thrombosis (DVT), GERD/Reflux, Pneumonia, Sleep Apnea/CPAP/BIPAP Additional Past Medical History / Comment(s): Pt had recent admission to [facility] with pneumonia. 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 History of Any Multi-Drug Resistant Organisms: MRSA Year Discovered:: 05/29/17 MDRO Source:: BRONCH WASH Past Surgical History: Cholecystectomy Additional Past Surgical History / Comment(s): multiple stomach sxMultivisceral organ transplant including bowel, pancreas, and stomach at [facility]-follows thru [facility],spleen removed left knee arthrotomy, EGD, colonoscopy, ERCP with insertion of a pancreatic duct stent- since removed . colostomy bag, and "fistulas that drain into a bag" Past Anesthesia/Blood Transfusion Reactions: No Reported Reaction Additional Past Anesthesia/Blood Transfusion Reaction / Comm: STATES R/T TO MULTIPLE SX HE REQUIRES A LOT OF MEDICATION for anesthesia. He has had multiple blood transfusions without reaction. Additional Psychological History / Comment(s): lives in the family home with his . Medically disabled. No experience. No extensive travel. Receives his medical care currently at the [facility] Smoking Status: Current some day smoker - Past Family History Mother History Unknown: Yes Additional Family Medical History / Comment(s): pt is adopted, does not know any hx Father History Unknown: Yes Additional Family Medical History / Comment(s): pt is adopted, does not know any hx Medications and Allergies Home Medications and Allergies Comment(s): Current Medications Hydrocodone Bitart/Acetaminophen (Pillow 10) 1 each PO Q6HR PRN PRN Reason: Pain Budesonide/Formoterol Fumarate (Symbicort 160-4.5 Mcg Inhaler) 2 puff INHALATION RT-BID [facility] Calcium Carbonate/Glycine (Tums) 500 mg PO QID [facility] Cholecalciferol (Vitamin D3) 5,000 unit PO MOWEFR [facility] Flecainide Acetate (Tambocor) 150 mg PO Q12H [facility] Fondaparinux (Arixtra) 5 mg SQ DAILY [facility] Gabapentin (Neurontin) 400 mg PO TID [facility] Hydrocortisone Sodium Succinate (Solu-Cortef) 50 mg IV Q8HR [facility] Hydromorphone HCl (Dilaudid) 1 mg IVP Q3HR PRN PRN Reason: Severe Pain Last Admin: 02/13/18 19:56 Dose: 1 mg Hydromorphone HCl (Dilaudid) 0.5 mg IVP Q3HR PRN PRN Reason: Moderate Pain Sodium Chloride (Saline 0.9%) 1,000 mls @ 100 mls/hr IV .Q10H STA Stop: 02/14/18 00:20 Last Admin: 02/13/18 14:47 Dose: 100 mls/hr Sodium Chloride (Saline 0.9%) 1,000 mls @ 125 mls/hr IV .Q8H [facility] Last Admin: 02/13/18 20:02 Dose: 125 mls/hr Octreotide Acetate 200 mcg/ (Sodium Chloride) 101 mls @ 200 mls/hr IVPB DAILY [facility] Last Admin: 02/13/18 22:56 Dose: 200 mls/hr Anidulafungin 200 mg/ Sodium (Chloride) 200 mls @ 84 mls/hr IVPB ONCE ONE Stop: 02/14/18 00:22 Last Admin: 02/13/18 22:55 Dose: 84 mls/hr Anidulafungin 100 mg/ Sodium (Chloride) 100 mls @ 84 mls/hr IVPB HS [facility] Lorazepam (Ativan) 0.5 mg IV Q6HR PRN PRN Reason: Anxiety Last Admin: 02/13/18 22:43 Dose: 0.5 mg Methadone HCl (Dolophine) 5 mg PO HS [facility] Methadone HCl (Dolophine) 10 mg PO QAM [facility] Multivitamins (Theragran) 1 each PO QAM [facility] Naloxone HCl (Narcan) 0.2 mg IV Q2M PRN PRN Reason: Opioid Reversal Nystatin (Mycostatin Oral Susp) 500,000 unit PO QID [facility] Pantoprazole Sodium (Protonix) 40 mg IV DAILY [facility] Last Admin: 02/13/18 20:02 Dose: 40 mg Quetiapine Fumarate (Seroquel) 25 mg PO BID [facility] Sertraline HCl (Zoloft) 100 mg PO QAM [facility] Sucralfate (Carafate) 1 gm PO BID [facility] Tacrolimus (Prograf) 1 mg PO BID [facility] Trazodone HCl (Desyrel) 100 mg PO [facility] Home Medications Medication Instructions Recorded Confirmed Type Calcium Citrate/Vitamin D3 1 tab PO BID 09/02/13 02/13/18 History [Calcium Citrate - Vit D3 Tab] Ferrous Gluconate 325 mg PO BID 09/02/13 02/13/18 History Multivitamin [Men's Multi-Vitamin] 1 tab PO QAM 09/02/13 02/13/18 History Sertraline [Zoloft] 100 mg PO QAM 09/02/13 02/13/18 History Tacrolimus [Prograf] 1 mg PO BID 09/02/13 02/13/18 History Sulfamethoxazole/Trimethoprim 0.5 tab PO MOWEFR 08/02/16 02/13/18 History [Bactrim DS 800-160 mg] Albuterol Sulfate [Proair Hfa] 2 puff INHALATION RT-Q6H PRN 12/19/16 02/13/18 History traZODone HCL 100 mg PO HS 12/19/16 02/13/18 History Sucralfate [Carafate] 1 gm PO BID 03/23/17 02/13/18 History Budesonide/Formoterol Fumarate 2 puff INHALATION RT-BID 05/17/17 02/13/18 History [Symbicort 160-4.5 Mcg Inhaler] Methadone [Dolophine] 10 mg PO QAM 05/17/17 02/13/18 History QUEtiapine [SEROquel] 25 mg PO BID 07/23/17 02/13/18 History Flecainide Acetate [Tambocor] 150 mg PO Q12H 12/12/17 02/13/18 History Gabapentin [Neurontin] 400 mg PO TID 12/12/17 02/13/18 History Hydrocortisone [Cortef] 30 mg PO BID 12/12/17 02/13/18 History Nystatin 100,000 Unit/ml Susp 500,000 unit PO QID 12/12/17 02/13/18 History [Mycostatin Oral Susp] clonazePAM [Klonopin ODT Wafer] 0.25 mg PO HS 12/12/17 02/13/18 History HYDROcodone/APAP 10-325MG [Pillow 1 tab PO Q6HR PRN 01/10/18 02/13/18 History 10-325] Calcium Carbonate [Tums] 500 mg PO QID 01/22/18 02/13/18 History Cholecalciferol [Vitamin D3] 5,000 unit PO MOWEFR 01/22/18 02/13/18 History Ipratropium [place] [Atrovent Hfa] 2 puff INHALATION RT-QID PRN 01/22/18 History Methadone [Dolophine] 5 mg PO HS 01/22/18 02/13/18 History Fondaparinux Sodium [Arixtra] 5 mg SQ DAILY 02/13/18 02/13/18 History Mycamine 100mg 100 mg IV DAILY 02/13/18 02/13/18 History Vancomycin 1.5gm Iv 1.5 gm IV DAILY 02/13/18 02/13/18 History Allergies Allergy/AdvReac Type Severity Reaction Status Date / Time aspirin Allergy GI Verified 02/13/18 15:20 BLEEDING , ABDOMINAL PAIN heparin AdvReac abdominal Verified 02/13/18 15:20 pain , GI bleeding ketorolac tromethamine AdvReac migraines Verified 02/13/18 15:20 [From Toradol] morphine AdvReac Itching Verified 02/13/18 15:20 Physical Exam Vitals: Vital Signs Temp Pulse Pulse Resp BP BP Pulse Ox 02/13/18 20:00 96.7 F L 68 18 117/51 98 02/13/18 18:39 98.7 F 73 19 114/68 98 02/13/18 17:00 67 25 H 103/72 97 02/13/18 16:00 71 19 102/62 91 L 02/13/18 15:00 98/59 90 L 02/13/18 14:40 110/56 02/13/18 14:15 110/56 96 02/13/18 14:02 97.7 F 96 24 85/52 100 Intake and Output 02/13/18 02/13/18 02/14/18 14:59 22:59 06:59 Intake Total 1400 Output Total 310 Balance 1090 Intake: Intake, IV Titration 1400 Amount Sodium Chloride 0.9% 1, 400 000 ml @ 100 mls/hr IV . Q10H STA Rx#:[id number] Sodium Chloride 0.9% 1, 1000 000 ml @ 500 mls/hr IV . Q2H ONE Rx#:[id number] Output: Drainage 310 Abdomen 310 Other: # Voids 2 Weight 91.172 kg 47-year-old male continues to feel poorly feeling weak and ill at home HEENT: Anicteric conjunctiva are pink and moist nasal mucosa grossly intact without significant lesions, there is no thrush. Neck: The neck is supple without significant lymphadenopathy or thyromegaly. Lungs: Good bilateral air entry without significant crackles or wheezing. There is no significant bronchial sounds. There is no egophony or dullness. Heart: Regular rate and rhythm with an audible S1-S2, no S3 no S4. There is no significant murmur click or rub, PMI was nondisplaced. Abdomen: Few bowel sounds are noted. Scant drainage in the ileostomy bag. The midline ostomy is covering the multiple fistulas and has more drainage than the ileostomy itself. Distinct tenderness in the epigastrium is noted which he relates is not new. Is also some tenderness in this near suprapubic area. No palpable masses in the abdomen is not rigid. Extremities: Left upper extremities evidence of the extensive swelling from the prior DVT, right upper extremity without acute change. Lower extremities with trace edema. IV access right anterior chest wall intact. Neuro: Awake alert oriented to person place and time. There are no acute new gross focal sensory motor deficits. Results CBC & Chem 7: 02/13/18 14:21 02/13/18 14:21 Labs: Abnormal Lab Results - Last 24 Hours (Table) 02/13/18 02/13/18 02/13/18 Range/Units 14:21 14:21 14:21 WBC 13.9 H (3.8-10.6) k/uL RBC 4.27 L (4.30-5.90) m/uL Hgb 10.3 L (13.0-17.5) gm/dL Hct 34.8 L (39.0-53.0) % MCH 24.0 L (25.0-35.0) pg MCHC 29.5 L (31.0-37.0) g/dL RDW 17.5 H (11.5-15.5) % Neutrophils # 10.6 H (1.3-7.7) k/uL Monocytes # 1.2 H (0-1.0) k/uL BUN 49 H (9-20) mg/dL Creatinine 1.77 H (0.66-1.25) mg/dL Glucose 118 H (74-99) mg/dL Plasma Lactic Acid Barrie (0.7-2.0) mmol/L Alkaline Phosphatase 127 H (38-126) U/L Total Creatine Kinase <20 L (55-170) U/L Albumin 3.4 L (3.5-5.0) g/dL Free T3 pg/mL 6.9 H (2.8-5.3) pg/ml Urine Protein (Negative) Urine Bacteria (None) /hpf Hyaline Casts (0-2) /lpf Urine Mucus (None) /hpf 02/13/18 02/13/18 Range/Units 14:21 20:45 WBC (3.8-10.6) k/uL RBC (4.30-5.90) m/uL Hgb (13.0-17.5) gm/dL Hct (39.0-53.0) % MCH (25.0-35.0) pg MCHC (31.0-37.0) g/dL RDW (11.5-15.5) % Neutrophils # (1.3-7.7) k/uL Monocytes # (0-1.0) k/uL BUN (9-20) mg/dL Creatinine (0.66-1.25) mg/dL Glucose (74-99) mg/dL Plasma Lactic Acid Barrie 2.8 H* (0.7-2.0) mmol/L Alkaline Phosphatase (38-126) U/L Total Creatine Kinase (55-170) U/L Albumin (3.5-5.0) g/dL Free T3 pg/mL (2.8-5.3) pg/ml Urine Protein 1+ H (Negative) Urine Bacteria Rare H (None) /hpf Hyaline Casts 8 H (0-2) /lpf Urine Mucus Occasional H (None) /hpf Laboratory Results WBC 13.9 k/uL (3.8-10.6) H 02/13/18 14:21 RBC 4.27 m/uL (4.30-5.90) L 02/13/18 14:21 Hgb 10.3 gm/dL (13.0-17.5) L 02/13/18 14:21 Hct 34.8 % (39.0-53.0) L 02/13/18 14:21 MCV 81.5 fL (80.0-100.0) D 02/13/18 14:21 MCH 24.0 pg (25.0-35.0) L 02/13/18 14:21 MCHC 29.5 g/dL (31.0-37.0) L 02/13/18 14:21 RDW 17.5 % (11.5-15.5) H 02/13/18 14:21 Plt Count 238 k/uL (150-450) 02/13/18 14:21 Neutrophils % 76 % 02/13/18 14:21 Lymphocytes % 12 % 02/13/18 14:21 Monocytes % 8 % 02/13/18 14:21 Eosinophils % 1 % 02/13/18 14: Basophils % 0 % 02/13/18 14:21 Neutrophils # 10.6 k/uL (1.3-7.7) H 02/13/18 14:21 Lymphocytes # 1.7 k/uL (1.0-4.8) 02/13/18 14:21 Monocytes # 1.2 k/uL (0-1.0) H 02/13/18 14:21 Eosinophils # 0.2 k/uL (0-0.7) 02/13/18 14: Basophils # 0.0 k/uL (0-0.2) 02/13/18 14:21 Manual Slide Review Performed 02/13/18 14:21 Large Platelets Present 02/13/18 14:21 Hypochromasia Marked 02/13/18 14:21 Poikilocytosis Slight 02/13/18 14:21 Anisocytosis Slight 02/13/18 14:21 Microcytosis Slight 02/13/18 14:21 Target Cells Present 02/13/18 14:21 Fragmented RBCs Present 02/13/18 14:21 PT 9.8 sec (9.0-12.0) 02/13/18 14:21 INR 1.0 (<1.2) 02/13/18 14:21 APTT 25.0 sec (22.0-30.0) 02/13/18 14:21 Sodium 141 mmol/L (137-145) 02/13/18 14:21 Potassium 3.5 mmol/L (3.5-5.1) 02/13/18 14:21 Chloride 105 mmol/L (98-107) 02/13/18 14:21 Carbon Dioxide 25 mmol/L (22-30) 02/13/18 14:21 Anion Gap 11 mmol/L 02/13/18 14:21 BUN 49 mg/dL (9-20) H 02/13/18 14:21 Creatinine 1.77 mg/dL (0.66-1.25) H 02/13/18 14:21 Est GFR (CKD-EPI)AfAm 51 (>60 ml/min/1.73 sqM) 02/13/18 14:21 Est GFR (CKD-EPI)NonAf 44 (>60 ml/min/1.73 sqM) 02/13/18 14:21 Glucose 118 mg/dL (74-99) H 02/13/18 14:21 Lactic Ac Sepsis Rflx Y 02/13/18 15:21 Plasma Lactic Acid Barrie 1.8 mmol/L (0.7-2.0) 02/13/18 19:40 Calcium 9.8 mg/dL (8.4-10.2) 02/13/18 14:21 Phosphorus 4.1 mg/dL (2.5-4.5) 02/13/18 14:21 Magnesium 1.9 mg/dL (1.6-2.3) 02/13/18 14:21 Total Bilirubin 0.3 mg/dL (0.2-1.3) 02/13/18 14:21 AST 28 U/L (17-59) 02/13/18 14:21 ALT 41 U/L (21-72) 02/13/18 14:21 Alkaline Phosphatase 127 U/L (38-126) H 02/13/18 14:21 Total Creatine Kinase <20 U/L (55-170) L 02/13/18 14:21 CK-MB (CK-2) 1.1 ng/mL (0.0-2.4) 02/13/18 14:21 CK-MB (CK-2) Rel Index 02/13/18 14:21 Troponin I 0.016 ng/mL (0.000-0.034) 02/13/18 14:21 Total Protein 6.5 g/dL (6.3-8.2) 02/13/18 14:21 Albumin 3.4 g/dL (3.5-5.0) L 02/13/18 14:21 TSH 1.320 mIU/L (0.465-4.680) 02/13/18 14:21 Free T4 1.09 ng/dL (0.78-2.19) 02/13/18 14: Free T3 pg/mL 6.9 pg/ml (2.8-5.3) H 02/13/18 14:21 Urine Color Yellow 02/13/18 20:45 Urine Appearance Clear (Clear) 02/13/18 20:45 Urine pH 5.5 (5.0-8.0) 02/13/18 20:45 Ur Specific [place] 1.020 (1.001-1.035) 02/13/18 20:45 Urine Protein 1+ (Negative) H 02/13/18 20:45 Urine Glucose (UA) Negative (Negative) 02/13/18 20:45 Urine Ketones Negative (Negative) 02/13/18 20:45 Urine Blood Negative (Negative) 02/13/18 20:45 Urine Nitrite Negative (Negative) 02/13/18 20:45 Urine Bilirubin Negative (Negative) 02/13/18 20:45 Urine Urobilinogen <2.0 mg/dL (<2.0) 02/13/18 20:45 Ur Leukocyte Esterase Negative (Negative) 02/13/18 20:45 Urine RBC 1 /hpf (0-5) 02/13/18 20:45 Urine WBC 2 /hpf (0-5) 02/13/18 20:45 Ur Squamous Epith Cells <1 /hpf (0-4) 02/13/18 20:45 Urine Bacteria Rare /hpf (None) H 02/13/18 20:45 Hyaline Casts 8 /lpf (0-2) H 02/13/18 20:45 Granular Casts 5 /lpf (0) 02/13/18 20:45 Urine Mucus Occasional /hpf (None) H 02/13/18 20:45 Vancomycin Trough 18.3 ug/mL 02/13/18 14:40 Assessment and Plan (1) Dehydration Current Visit: Yes Status: Acute Code(s): E86.0 - DEHYDRATION SNOMED Code( s): 91818484 (2) Acute renal failure Current Visit: Yes Status: Acute Code(s): N17.9 - ACUTE KIDNEY FAILURE, UNSPECIFIED SNOMED Code(s): 84636860 (3) Encounter for aftercare following multiple organ transplant Current Visit: No Status: Acute Code(s): Z48.288 - ENCOUNTER FOR AFTERCARE FOLLOWING MULTIPLE ORGAN TRANSPLANT SNOMED Code(s): 275165302 (4) MRSA (methicillin resistant Staphylococcus aureus) infection Narrative/Plan: 47-year-old male who has a known history of a multiorgan transplant was recently been cared for at the [facility] and several events with several hospitalizations regarding his increasing difficulties intra- abdominally. He has developed [id number] disease to the small bowel transplant and has now required ileostomy placement and exporter laparotomies with lysis of adhesions. 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 He has a ostomy pouch in place together the drainage. Is currently taking only medications by mouth he is not eating, utilizing TPN for his nutrition to try to rest his gut. Sandostatin has recently been added to try to improve his fistula formation. He follows up with the [facility] on February 24. There is evidence of acute renal failure occurring at this time and constantly vancomycin therapy is stopped. We'll check levels in the morning. If they become subtherapeutic we'll then initiate daptomycin therapy for the treatment of MRSA infection of the abdominal area. He was on micafungin, this is transitioned to Eraxis due to our formulary issues. Wound care will be with the ostomy pouch which the can bring from home to be reapplied to the abdominal wall. We'll give him further fluids over his creatinine will rapidly improve and then we can work with the transplant center for his transition to home potentially transitioning vancomycin to daptomycin for his home therapy. Current Visit: Yes Status: Acute Code(s): A49.02 - METHICILLIN RESIS STAPH INFECTION, UNSP SITE SNOMED Code(s): 526420630
[2018-02-14] MEDS: METHADONE 10 MG TAB PO SCH ×3 (00:05→20:42)
[2018-02-14] MEDS: QUEtiapine 25 MG TAB PO SCH ×3 (00:07→20:43)
[2018-02-14] MEDS: GABAPENTIN 400 MG CAP PO SCH ×4 (00:07→21:36)
[2018-02-14] MEDS: FLECAINIDE 50 MG TAB PO SCH ×3 (00:07→23:57)
[2018-02-14] MEDS: TACROLIMUS 1 MG CAP PO SCH ×3 (00:08→20:42)
[2018-02-14] MEDS: traZODone HCL 100 MG TAB PO SCH ×2 (00:08→20:42)
[2018-02-14] MEDS: HYDROCORTISONE SUCCINATE 100 MG/2 ML VIAL IV SCH ×4 (00:10→23:58)
[2018-02-14] MEDS: SODIUM CHLORIDE 0.9% 1,000 ML IV SCH ×4 (00:11→18:16)
[2018-02-14] MEDS: HYDROmorphone 1 MG/ML 1 ML SYRINGE IVP PRN ×5 (03:57→20:38)
[2018-02-14 06:29] LABS: Anisocytosis Slight; Basophils % (A) 0 %; Eosinophils # (A) 0.1 k/uL (0-0.7); Eosinophils % (A) 1 %; HCT 31.1 % (39.0-53.0); HGB 8.9 gm/dL (13.0-17.5); Hypochromasia Marked; Lymphocytes # (A) 1.4 k/uL (1.0-4.8); Lymphocytes % (A) 11 %; MCH 23.7 pg (25.0-35.0); MCHC 28.6 g/dL (31.0-37.0); Mean Platelet Volume 7.1; Monocytes # (A) 0.7 k/uL (0-1.0); Monocytes % (A) 5 %; Neutrophils # (A) 10.8 k/uL (1.3-7.7); Neutrophils % (A) 83 %; Platelet Count 152 k/uL (150-450); Poikilocytosis Slight; RBC 3.75 m/uL (4.30-5.90); RDW 17.5 % (11.5-15.5); WBC 13.1 k/uL (3.8-10.6)
[2018-02-14 06:42] LABS: Calcium 8.6 mg/dL (8.4-10.2); Potassium 4.5 mmol/L (3.5-5.1)
[2018-02-14 07:01] LABS: Large Platelets Present
[2018-02-14 07:05] LABS: Howell-Jolly Bodies Present; RBC Fragments Present; Target Cells Present
--- NOTE | 2018-02-14 07:31 | HP ---
HISTORY AND PHYSICAL DATE OF ADMISSION: 02/13/2018 DATE OF SERVICE: 02/13/2018 PRESENTING COMPLAINT: Weak, tired. HISTORY OF PRESENTING COMPLAINT: This is a 47-year-old patient with rather extensive and complicated abdominal history. Family doctor is Dr. Zhao. The patient had a multivisceral transplant in [place] that included mesenteric vein graft followed by mesenteric graft thrombosis and some subsequent gastroparesis. The patient is on anticoagulation. Patient also did have intestinal tract obstruction from congenital defect. The patient also chronic stable conditions include adrenal insufficiency, chronic anemia. Patient also had 4- organ transplant in 2002 including small bowel, pancreas, duodenum and stomach in [place]. The patient also had valvular cardiac surgery done. Patient a few weeks ago started having bowel dehiscence and abdomen will have to be opened up, was keeping with dressings. The patient presented to the ER on 01/22/2018 and from the fistulas in the abdomen all food that he was eating started to pour out. The patient was airlifted and moved to [facility]. The patient then had further surgery done now has a drainage bag over the fistula and has also a separate ileostomy bag. The patient's bag is getting emptied 4 or 5 times at least. The patient was discharged from [place] about 2 to 3 days ago. Patient is able to keep food down, but is getting weak, tired and dehydrated easily to the point he gets dizzy and sometimes go down on his legs. The patient was found to be in renal failure in the ER. The patient also has been on antibiotics including vancomycin and micafungin. Dr. Suárez was consulted who did switch the patient to IV antifungals and also octreotide. Denies any fever and chills. REVIEW OF SYSTEMS: CONSTITUTIONAL: Weak, tired, dizzy. HEENT: None. RESPIRATORY: Occasionally short of breath. CARDIOVASCULAR: None. GASTROINTESTINAL: As above. GENITOURINARY: None. MUSCULOSKELETAL: None. DERMATOLOGICAL: Chronic skin changes. HEMATOLOGICAL: None. LYMPHATIC: None. PSYCHIATRY: Anxiety. NEUROLOGICAL: Some numbness and tingling. PAST MEDICAL HISTORY: Atrial fibrillation, COPD, GERD, congenital defect of intestinal tract with obstruction including multivisceral organ transplant including small bowel, pancreas, duodenum and stomach at the [facility] in 2002, mesenteric vein graft with thrombosis, gastritis, gastroparesis, adrenal insufficiency, chronic anemia. Additional surgery including left knee surgical repair after a barbed-wire fence incident, heart surgery for a valve. SOCIAL HISTORY: The patient lives with significant other. Had smoked for many years up until recently. The patient quit drinking alcohol in 2015. FAMILY HISTORY: Patient is adopted. HOME MEDICATIONS: 1. Vancomycin 1.5 grams IV daily. 2. Mycamine 100 mg IV daily. 3. Men's multivitamin 1 tablet p.o. daily. 4. Klonopin 0.25 q.h.s. 5. Trazodone 100 mg q.h.s. 6. Methadone 5 mg q.h.s. 7. Arixtra 5 mg subcutaneous daily. 8. Prograf 1 mg p.o. b.i.d. 9. Bactrim DS 0.5 tablet p.o. Saturday, Saturday and Saturday. 10.Carafate 1 gram p.o. b.i.d. 11.Zoloft 100 mg p.o. daily. 12.Seroquel 25 mg b.i.d. 13.Nystatin 500,000 units p.o. q.i.d. 14.Methadone 10 mg in the morning. 15.Atrovent HFA 2 puffs q.i.d. p.r.n. 16.Cortef 30 mg p.o. b.i.d. 17.[place] 10 1 tablet q.6 p.r.n. 18.Neurontin 400 mg p.o. t.i.d. 19.Tambocor 150 mg p.o. q.12. 20.Ferrous gluconate 325 p.o. b.i.d. 21.Vitamin D3, 5000 units p.o. Saturday, Saturday and Saturday. 22.Tums 500 mg p.o. q.i.d. 23.Calcium, vitamin D3 one tablet p.o. b.i.d. 24.Symbicort 160/4.5 two puffs b.i.d. 25.ProAir 2 puffs q.6 p.r.n. ALLERGIES: Allergies to ASPIRIN, HEPARIN, TORADOL, MORPHINE. PHYSICAL EXAMINATION: On examination, vital signs on presentation: Temperature 97.7, pulse 96, respiration 24, blood pressure 85/52, pulse ox 100% on room air. GENERAL APPEARANCE: Average build, lying in bed, tired appearing. EYES: Pupils equal. Conjunctivae normal. HENT: External appearance of nose and ears normal. Oral cavity dry. NECK: JVD not raised. Mass not palpable. RESPIRATORY: Effort increased. LUNGS: Decreased breath sounds. CARDIOVASCULAR: First and second sounds normal. No edema. ABDOMEN: Has got scars in place. A bag over the fistula site and the ileostomy site. Liver and spleen not palpable. Mild tenderness. No guarding or rigidity. LYMPHATIC: No lymph node palpable in neck or axillae. PSYCHIATRY: Alert and oriented x3. Mood and affect slightly anxious appearing. NEUROLOGICAL: Pupils equal. Cranial nerves grossly intact. Power and sensation grossly intact. INVESTIGATIONS: White count 13.9, hemoglobin 10.3. Potassium 3.5. BUN 49, creatinine 1.77. Lactic acid 2.8. TSH 1.3. The patient's BUN and creatinine was 32 and 1.64 on 01/22/2018 and it was 20 and 0.98 on 01/10/2018. ASSESSMENT: 1. Acute renal failure likely prerenal from high-output abdominal fistula. 2. Chronic obstructive pulmonary disease in an ex-smoker. 3. Four organ transplant in 2002 including small bowel, pancreas, duodenum, stomach being followed at [facility]. 4. Multiple abdominal fistulas, now with a drainage bag in place. 5. Gastroesophageal reflux disease. 6. Chronic gastroparesis. 7. Chronic mesenteric vein thrombosis, for which patient is on anticoagulations. 8. Immunosuppressed state. 9. Chronic kidney disease stage III. PLAN: Patient's home medications are resumed. Will consult ID, General Surgery, Nephrology. The patient will be aggressively hydrated. Vancomycin has been discontinued. Care was discussed with the patient. Prognosis is guarded. MMODL / IJN: [id number] /
[2018-02-14] MEDS: MULTIVITAMINS, THERA 1 EACH TAB PO SCH (08:20)
[2018-02-14] MEDS: SERTRALINE 100 MG TAB PO SCH (08:20)
[2018-02-14] MEDS: CALCIUM CARBONATE 500 MG CHEWABLE PO SCH ×4 (08:20→21:36)
[2018-02-14] MEDS: SUCRALFATE 1 GM TAB PO SCH ×2 (08:20→20:42)
[2018-02-14] MEDS: FONDAPARINUX 2.5 MG/0.5 ML SYRINGE SQ SCH (08:21)
[2018-02-14] MEDS: NYSTATIN 100,000 UNIT/ML SUSP 500,000 UNIT/5 ML CUP PO SCH ×4 (08:21→21:36)
[2018-02-14] MEDS: PANTOPRAZOLE 40 MG/10 ML VIAL IV SCH (08:23)
[2018-02-14] MEDS ORDERED: VITAMIN D3 PO SCH (09:00)
[2018-02-14] MEDS ORDERED: CALCIUM CITRATE PO SCH (09:00)
[2018-02-14] MEDS ORDERED: FERROUS GLUCONATE 325 MG PO SCH (09:00)
[2018-02-14] MEDS: SYMBICORT 160-4.5 MCG INHALER INHALATION SCH ×2 (09:03→21:13)
[2018-02-14] MEDS: OCTREOTIDE 200 MCG in SODIUM CHLORIDE 0.9% 100 ML IVPB SCH (10:22)
[2018-02-14 11:44] LABS: Glucose,Whole Blood 132 mg/dL (75-99)
--- NOTE | 2018-02-14 11:45 | P.NPCON ---
History of Present Illness - Reason for Consult acute renal failure - History of Present Illness Reason for consultation: Acute kidney injury History of present illness: Patient is a 47-year-old male seen in consultation for acute kidney injury. His baseline creatinine is 1 and was elevated at 1.77 on admission. He is currently maintained on normal saline at 1 25 mL an hour. Creatinine is down to 1.51 today. Patient presented to the hospital with generalized weakness. Patient states he was unable to stand. Patient underwent multiple bowel surgeries earlier this year and is maintained on TPN. He is not able to tolerate oral intake at this time. Admits to good urine output. No hematuria or dysuria. Denies use of NSAIDs. Denies any personal or family history of renal disease. Patient was hypotensive with systolic blood pressure in the 80s on admission and is better now. TPN will be resumed today. Patient also has history of intestine, duodenum and pancreatic transplant. He is maintained on Prograf. Vital signs are stable. General: The patient appeared well nourished and normally developed. HEENT: Head exam is unremarkable. Neck is without jugular venous distension. LUNGS: Lungs are clear to auscultation and percussion. Breath sounds decreased. HEART: Rate and Rhythm are regular. First and second heart sounds normal. No murmurs, rubs or gallops. ABDOMEN: Abdominal exam reveals normal bowel sounds. Ostomy noted. EXTREMITITES: No clubbing, cyanosis, or edema. Past Medical History Past Medical History: Atrial Fibrillation, COPD, Deep Vein Thrombosis (DVT), GERD/Reflux, Pneumonia, Sleep Apnea/CPAP/BIPAP Additional Past Medical History / Comment(s): Pt had recent admission to [facility] with pneumonia. 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 History of Any Multi-Drug Resistant Organisms: MRSA Date of last positivie culture/infection: 05/29/17 MDRO Source:: [place] Past Surgical History: Cholecystectomy Additional Past Surgical History / Comment(s): multiple stomach sxMultivisceral organ transplant including bowel, pancreas, and stomach at [facility]-follows thru [facility],spleen removed left knee arthrotomy, EGD, colonoscopy, ERCP with insertion of a pancreatic duct stent- since removed . colostomy bag, and "fistulas that drain into a bag" Past Anesthesia/Blood Transfusion Reactions: No Reported Reaction Additional Past Anesthesia/Blood Transfusion Reaction / Comment(s): STATES R/T TO MULTIPLE SX HE REQUIRES A LOT OF MEDICATION for anesthesia. He has had multiple blood transfusions without reaction. Additional Psychological History / Comment(s): lives in the family home with his . Medically disabled. No experience. No extensive travel. Receives his medical care currently at the [facility] Smoking Status: Current some day smoker - Past Family History Mother History Unknown: Yes Additional Family Medical History / Comment(s): pt is adopted, does not know any hx Father History Unknown: Yes Additional Family Medical History / Comment(s): pt is adopted, does not know any hx Medications and Allergies Home Medications Medication Instructions Recorded Confirmed Type RX: Calcium Citrate/Vitamin D3 1 tab PO BID 09/02/13 02/13/18 History [Calcium Citrate - Vit D3 Tab] RX: Ferrous Gluconate 325 mg PO BID 09/02/13 02/13/18 History RX: Multivitamin [Men's 1 tab PO QAM 09/02/13 02/13/18 History Multi-Vitamin] RX: Sertraline [Zoloft] 100 mg PO QAM 09/02/13 02/13/18 History RX: Tacrolimus [Prograf] 1 mg PO BID 09/02/13 02/13/18 History RX: Sulfamethoxazole/Trimethoprim 0.5 tab PO MOWEFR 08/02/16 02/13/18 History [Bactrim DS 800-160 mg] RX: Albuterol Sulfate [Proair Hfa] 2 puff INHALATION RT-Q6H PRN 12/19/16 History RX: traZODone HCL 100 mg PO HS 12/19/16 02/13/18 History RX: Sucralfate [Carafate] 1 gm PO BID 03/23/17 02/13/18 History RX: Budesonide/Formoterol Fumarate 2 puff INHALATION RT-BID 05/17/17 02/13/18 History [Symbicort 160-4.5 Mcg Inhaler] RX: Methadone [Dolophine] 10 mg PO QAM 05/17/17 02/13/18 History RX: QUEtiapine [SEROquel] 25 mg PO BID 07/23/17 02/13/18 History Flecainide Acetate [Tambocor] 150 mg PO Q12H 12/12/17 02/13/18 History Gabapentin [Neurontin] 400 mg PO TID 12/12/17 02/13/18 History Hydrocortisone [Cortef] 30 mg PO BID 12/12/17 02/13/18 History RX: Nystatin 100,000 Unit/ml Susp 500,000 unit PO QID 12/12/17 02/13/18 History [Mycostatin Oral Susp] clonazePAM [Klonopin ODT Wafer] 0.25 mg PO HS 12/12/17 02/13/18 History HYDROcodone/APAP 10-325MG [[place] 1 tab PO Q6HR PRN 01/10/18 02/13/18 History 10-325] Calcium Carbonate [Tums] 500 mg PO QID 01/22/18 02/13/18 History Cholecalciferol [Vitamin D3] 5,000 unit PO MOWEFR 01/22/18 02/13/18 History Ipratropium [place] [Atrovent Hfa] 2 puff INHALATION RT-QID PRN 01/22/18 History Methadone [Dolophine] 5 mg PO HS 01/22/18 02/13/18 History Fondaparinux Sodium [Arixtra] 5 mg SQ DAILY 02/13/18 02/13/18 History Mycamine 100mg 100 mg IV DAILY 02/13/18 02/13/18 History Vancomycin 1.5gm Iv 1.5 gm IV DAILY 02/13/18 02/13/18 History Allergies Allergy/AdvReac Type Severity Reaction Status Date / Time aspirin Allergy GI Verified 02/13/18 15:20 BLEEDING , ABDOMINAL PAIN heparin AdvReac abdominal Verified 02/13/18 15:20 pain , GI bleeding ketorolac tromethamine AdvReac migraines Verified 02/13/18 15:20 [From Toradol] morphine AdvReac Itching Verified 02/13/18 15:20 Physical Exam Vitals: Vital Signs Temp Pulse Pulse Pulse Resp BP BP 02/14/18 09:07 02/14/18 08:50 78 18 02/14/18 05:31 97.5 F L 71 18 125/59 02/14/18 00:00 18 02/13/18 20:00 96.7 F L 68 18 117/51 02/13/18 18:39 98.7 F 73 19 114/68 02/13/18 17:00 67 25 H 103/72 02/13/18 16:00 71 19 102/62 02/13/18 15:00 98/59 02/13/18 14:40 110/56 02/13/18 14:15 110/56 02/13/18 14:02 97.7 F 96 24 85/52 Pulse Ox 02/14/18 09:07 96 02/14/18 08:50 02/14/18 05:31 98 02/14/18 00:00 02/13/18 20:00 98 02/13/18 18:39 98 02/13/18 17:00 97 02/13/18 16:00 91 L 02/13/18 15:00 90 L 02/13/18 14:40 02/13/18 14:15 96 02/13/18 14:02 100 Intake and Output 02/13/18 02/14/18 02/14/18 22:59 06:59 14:59 Intake Total 1400 1700 Output Total 310 900 600 Balance 1090 800 -600 Intake: Intake, IV Titration 1400 1700 Amount Anidulafungin 100 mg In 100 Sodium Chloride 0.9% 100 ml @ 84 mls/hr IVPB HS GUY Rx#:[id number] Octreotide 200 mcg In 100 Sodium Chloride 0.9% 100 ml @ 200 mls/hr IVPB DAILY GUY Rx#:[id number] Sodium Chloride 0.9% 1, 400 000 ml @ 100 mls/hr IV . Q10H STA Rx#:[id number] Sodium Chloride 0.9% 1, 1500 000 ml @ 125 mls/hr IV . Q8H GUY Rx#:[id number] Sodium Chloride 0.9% 1, 1000 000 ml @ 500 mls/hr IV . Q2H ONE Rx#:[id number] Output: Drainage 310 300 150 Abdomen 310 300 150 Urine 600 450 Other: Voiding Method Urinal Urinal # Voids 2 2 1 Weight 91.172 kg Results - Lab Results Most recent lab results Calcium 8.6 mg/dL (8.4-10.2) 02/14/18 06:15 Phosphorus 4.1 mg/dL (2.5-4.5) 02/13/18 14:21 Magnesium 1.9 mg/dL (1.6-2.3) 02/13/18 14:21 02/14/18 06:15 02/14/18 06:15 Assessment and Plan Plan: Assessment: 1. Nonoliguric acute kidney injury mostly prerenal secondary to hypotension and intravascular volume depletion from high output from ostomy improving with IV hydration. I do note Bactrim and his home medications which can also falsely increase creatinine by impairing its secretion. Creatinine was 1.77 on admission and is 1.51 today. Baseline creatinine is near 1. 2. Lactic acidosis secondary to hypoperfusion. Improved with IV hydration. 3. Hypotension from intravascular volume depletion. Improved. 4. History of small bowel, pancreatic and duodenal transplant. Maintain on Prograf. 5. Anemia. Rule out iron deficiency. Plan: Maintain normal saline at 125 mL an hour. I will decrease the rate of IV fluids to 50 mL an hour once TPN resumed. Check iron studies. Avoid nephrotoxins. Repeat electrolytes in the morning. Thank you for the consultation. I will continue to follow the patient with you during his hospital stay.
[2018-02-14] MEDS ORDERED: MVI, ADULT NO.4 WITH VIT K 10 ML, TRACE (CONC-1ML/DOSE) 1 ML in AMINO ACID 5%-D15W+LYTE... IV ONE ×3 (12:00)
[2018-02-14 13:58] LABS: Ionized Calcium 5.5 mg/dL (4.5-5.3)
[2018-02-14 14:16] LABS: Magnesium 1.5 mg/dL (1.6-2.3); Phosphorus 3.6 mg/dL (2.5-4.5)
--- NOTE | 2018-02-14 14:56 | P.GSCN ---
History of Present Illness Consult date: 02/14/18 Reason for Consult: Abdominal pain History of present illness: 47-year-old male who has history of multi-organ transplant done in 2002. Patient has had many complications regarding his transplants. Patient history has been obtained from reviewing prior computerized records. Patient stated that he spent once [facility] recently and was just discharged within 48 hours. He stated when he got home his TPN that he been receiving to allow healing of a fistula and [facility] gastrointestinal track there was a delay in getting it started. Patient had poor oral intake and that getting dehydrated stated that he was awakened could not get out of bed. Patient to a complex infection issues been followed by ID Dr. Suárez. Patient states he is scheduled to go back to [facility] February 24. Patient recently underwent exploratory laparotomy lysis of adhesions and a placement of an ileostomy. Patient reportedly has significant fistula enlargements with drainage to the anterior abdominal wall. As mentioned the patient was seen at [facility] spent 2 months there according to the patient and had evidence of MRSA infection and a fungal infection. Patient was admitted this admission with dehydration and acute renal failure patient has seen Dr. Ortega in the past. He should states all of his surgical procedures have always been done at [facility] currently patient is resting in bed appears in no acute distress and is currently denying abdominal discomfort Review of Systems Essentially unremarkable except as mentioned in the present Past Medical History Past Medical History: Atrial Fibrillation, COPD, Deep Vein Thrombosis (DVT), GERD/Reflux, Pneumonia, Sleep Apnea/CPAP/BIPAP Additional Past Medical History / Comment(s): Pt had recent admission to [facility] with pneumonia. 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 History of Any Multi-Drug Resistant Organisms: MRSA Year Discovered:: 05/29/17 MDRO Source:: BRONCH WASH Past Surgical History: Cholecystectomy Additional Past Surgical History / Comment(s): multiple stomach sxMultivisceral organ transplant including bowel, pancreas, and stomach at [facility]-follows thru [facility],spleen removed left knee arthrotomy, EGD, colonoscopy, ERCP with insertion of a pancreatic duct stent- since removed . colostomy bag, and "fistulas that drain into a bag" Past Anesthesia/Blood Transfusion Reactions: No Reported Reaction Additional Past Anesthesia/Blood Transfusion Reaction / Comm: STATES R/T TO MULTIPLE SX HE REQUIRES A LOT OF MEDICATION for anesthesia. He has had multiple blood transfusions without reaction. Additional Psychological History / Comment(s): lives in the family home with his . Medically disabled. No experience. No extensive travel. Receives his medical care currently at the [facility] Smoking Status: Current some day smoker - Past Family History Mother History Unknown: Yes Additional Family Medical History / Comment(s): pt is adopted, does not know any hx Father History Unknown: Yes Additional Family Medical History / Comment(s): pt is adopted, does not know any hx Medications and Allergies Home Medications Medication Instructions Recorded Confirmed Type Calcium Citrate/Vitamin D3 1 tab PO BID 09/02/13 02/13/18 History [Calcium Citrate - Vit D3 Tab] Ferrous Gluconate 325 mg PO BID 09/02/13 02/13/18 History Multivitamin [Men's Multi-Vitamin] 1 tab PO QAM 09/02/13 02/13/18 History Sertraline [Zoloft] 100 mg PO QAM 09/02/13 02/13/18 History Tacrolimus [Prograf] 1 mg PO BID 09/02/13 02/13/18 History Sulfamethoxazole/Trimethoprim 0.5 tab PO MOWEFR 08/02/16 02/13/18 History [Bactrim DS 800-160 mg] Albuterol Sulfate [Proair Hfa] 2 puff INHALATION RT-Q6H PRN 12/19/16 02/13/18 History traZODone HCL 100 mg PO HS 12/19/16 02/13/18 History Sucralfate [Carafate] 1 gm PO BID 03/23/17 02/13/18 History Budesonide/Formoterol Fumarate 2 puff INHALATION RT-BID 05/17/17 02/13/18 History [Symbicort 160-4.5 Mcg Inhaler] Methadone [Dolophine] 10 mg PO QAM 05/17/17 02/13/18 History QUEtiapine [SEROquel] 25 mg PO BID 07/23/17 02/13/18 History Flecainide Acetate [Tambocor] 150 mg PO Q12H 12/12/17 02/13/18 History Gabapentin [Neurontin] 400 mg PO TID 12/12/17 02/13/18 History Hydrocortisone [Cortef] 30 mg PO BID 12/12/17 02/13/18 History Nystatin 100,000 Unit/ml Susp 500,000 unit PO QID 12/12/17 02/13/18 History [Mycostatin Oral Susp] clonazePAM [Klonopin ODT Wafer] 0.25 mg PO HS 12/12/17 02/13/18 History HYDROcodone/APAP 10-325MG [[place] 1 tab PO Q6HR PRN 01/10/18 02/13/18 History 10-325] Calcium Carbonate [Tums] 500 mg PO QID 01/22/18 02/13/18 History Cholecalciferol [Vitamin D3] 5,000 unit PO MOWEFR 01/22/18 02/13/18 History Ipratropium [place] [Atrovent Hfa] 2 puff INHALATION RT-QID PRN 01/22/18 History Methadone [Dolophine] 5 mg PO HS 01/22/18 02/13/18 History Fondaparinux Sodium [Arixtra] 5 mg SQ DAILY 02/13/18 02/13/18 History Mycamine 100mg 100 mg IV DAILY 02/13/18 02/13/18 History Vancomycin 1.5gm Iv 1.5 gm IV DAILY 02/13/18 02/13/18 History Allergies Allergy/AdvReac Type Severity Reaction Status Date / Time aspirin Allergy GI Verified 02/13/18 15:20 BLEEDING , ABDOMINAL PAIN heparin AdvReac abdominal Verified 02/13/18 15:20 pain , GI bleeding ketorolac tromethamine AdvReac migraines Verified 02/13/18 15:20 [From Toradol] morphine AdvReac Itching Verified 02/13/18 15:20 Surgical - Exam Vital Signs Temp Pulse Resp BP Pulse Ox 97.7 F 96 24 85/52 100 02/13/18 14:02 02/13/18 14:02 02/13/18 14:02 02/13/18 14:02 02/13/18 14:02 Physical exam 47-year-old male resting in bed appearing in no acute distress is denying any abdominal pain states is anxious to be discharged to spend 2 months at [facility] hospitalized Lungs anterior and posterior adequate air movement bilaterally Heart S1-S2 audible and regular Abdomen an ileostomy moderate amount of stool drainage to the anterior wall dark drainage noted in the bag soft nondistended no tenderness noted Extremities trace pedal edema Results - Labs 02/14/18 06:15 02/14/18 06:15 Abnormal Lab Results - Last 24 Hours (Table) 02/13/18 02/13/18 02/13/18 Range/Units 14:21 14:21 14:21 WBC 13.9 H (3.8-10.6) k/uL RBC 4.27 L (4.30-5.90) m/uL Hgb 10.3 L (13.0-17.5) gm/dL Hct 34.8 L (39.0-53.0) % MCH 24.0 L (25.0-35.0) pg MCHC 29.5 L (31.0-37.0) g/dL RDW 17.5 H (11.5-15.5) % Neutrophils # 10.6 H (1.3-7.7) k/uL Monocytes # 1.2 H (0-1.0) k/uL Chloride (98-107) mmol/L BUN 49 H (9-20) mg/dL Creatinine 1.77 H (0.66-1.25) mg/dL Glucose 118 H (74-99) mg/dL POC Glucose (mg/dL) (75-99) mg/dL Plasma Lactic Acid Barrie (0.7-2.0) mmol/L Ionized Calcium Hany (4.5-5.3) mg/dL Magnesium (1.6-2.3) mg/dL Alkaline Phosphatase 127 H (38-126) U/L Total Creatine Kinase <20 L (55-170) U/L Albumin 3.4 L (3.5-5.0) g/dL Triglycerides (<150) mg/dL Amylase (30-110) U/L Free T3 pg/mL 6.9 H (2.8-5.3) pg/ml Urine Protein (Negative) Urine Bacteria (None) /hpf Hyaline Casts (0-2) /lpf Urine Mucus (None) /hpf 02/13/18 02/13/18 02/14/18 Range/Units 14:21 20:45 06:15 WBC (3.8-10.6) k/uL RBC (4.30-5.90) m/uL Hgb (13.0-17.5) gm/dL Hct (39.0-53.0) % MCH (25.0-35.0) pg MCHC (31.0-37.0) g/dL RDW (11.5-15.5) % Neutrophils # (1.3-7.7) k/uL Monocytes # (0-1.0) k/uL Chloride 110 H (98-107) mmol/L BUN 39 H (9-20) mg/dL Creatinine 1.51 H (0.66-1.25) mg/dL Glucose 150 H (74-99) mg/dL POC Glucose (mg/dL) (75-99) mg/dL Plasma Lactic Acid Barrie 2.8 H* (0.7-2.0) mmol/L Ionized Calcium Hany (4.5-5.3) mg/dL Magnesium (1.6-2.3) mg/dL Alkaline Phosphatase (38-126) U/L Total Creatine Kinase (55-170) U/L Albumin (3.5-5.0) g/dL Triglycerides (<150) mg/dL Amylase 112 H (30-110) U/L Free T3 pg/mL (2.8-5.3) pg/ml Urine Protein 1+ H (Negative) Urine Bacteria Rare H (None) /hpf Hyaline Casts 8 H (0-2) /lpf Urine Mucus Occasional H (None) /hpf 02/14/18 02/14/18 02/14/18 Range/Units 06:15 11:42 11:43 WBC 13.1 H (3.8-10.6) k/uL RBC 3.75 L (4.30-5.90) m/uL Hgb 8.9 L (13.0-17.5) gm/dL Hct 31.1 L (39.0-53.0) % MCH 23.7 L (25.0-35.0) pg MCHC 28.6 L (31.0-37.0) g/dL RDW 17.5 H (11.5-15.5) % Neutrophils # 10.8 H (1.3-7.7) k/uL Monocytes # (0-1.0) k/uL Chloride (98-107) mmol/L BUN (9-20) mg/dL Creatinine (0.66-1.25) mg/dL Glucose (74-99) mg/dL POC Glucose (mg/dL) 132 H (75-99) mg/dL Plasma Lactic Acid Barrie (0.7-2.0) mmol/L Ionized Calcium Hany 5.5 H (4.5-5.3) mg/dL Magnesium 1.5 L (1.6-2.3) mg/dL Alkaline Phosphatase (38-126) U/L Total Creatine Kinase (55-170) U/L Albumin 3.0 L (3.5-5.0) g/dL Triglycerides 153 H (<150) mg/dL Amylase (30-110) U/L Free T3 pg/mL (2.8-5.3) pg/ml Urine Protein (Negative) Urine Bacteria (None) /hpf Hyaline Casts (0-2) /lpf Urine Mucus (None) /hpf Diabetes panel 02/13/18 02/14/18 02/14/18 Range/Units 14:21 06:15 11:42 Sodium 141 141 (137-145) mmol/L Potassium 3.5 4.5 (3.5-5.1) mmol/L Chloride 105 110 H (98-107) mmol/L Carbon Dioxide 25 25 (22-30) mmol/L BUN 49 H 39 H (9-20) mg/dL Creatinine 1.77 H 1.51 H (0.66-1.25) mg/dL Glucose 118 H 150 H (74-99) mg/dL Calcium 9.8 8.6 (8.4-10.2) mg/dL AST 28 (17-59) U/L ALT 41 (21-72) U/L Alkaline Phosphatase 127 H (38-126) U/L Total Protein 6.5 (6.3-8.2) g/dL Albumin 3.4 L 3.0 L (3.5-5.0) g/dL Triglycerides 153 H (<150) mg/dL Thyroid panel 02/13/18 Range/Units 14:21 TSH 1.320 (0.465-4.680) mIU/L Calcium panel 02/13/18 02/14/18 02/14/18 Range/Units 14:21 06:15 11:42 Calcium 9.8 8.6 (8.4-10.2) mg/dL Ionized Calcium Hany 5.5 H (4.5-5.3) mg/dL Phosphorus 4.1 3.6 (2.5-4.5) mg/dL Albumin 3.4 L 3.0 L (3.5-5.0) g/dL Pituitary panel 02/13/18 02/14/18 Range/Units 14:21 06:15 Sodium 141 141 (137-145) mmol/L Potassium 3.5 4.5 (3.5-5.1) mmol/L Chloride 105 110 H (98-107) mmol/L Carbon Dioxide 25 25 (22-30) mmol/L BUN 49 H 39 H (9-20) mg/dL Creatinine 1.77 H 1.51 H (0.66-1.25) mg/dL Glucose 118 H 150 H (74-99) mg/dL Calcium 9.8 8.6 (8.4-10.2) mg/dL TSH 1.320 (0.465-4.680) mIU/L Adrenal panel 02/13/18 02/14/18 02/14/18 Range/Units 14:21 06:15 11:42 Sodium 141 141 (137-145) mmol/L Potassium 3.5 4.5 (3.5-5.1) mmol/L Chloride 105 110 H (98-107) mmol/L Carbon Dioxide 25 25 (22-30) mmol/L BUN 49 H 39 H (9-20) mg/dL Creatinine 1.77 H 1.51 H (0.66-1.25) mg/dL Glucose 118 H 150 H (74-99) mg/dL Calcium 9.8 8.6 (8.4-10.2) mg/dL Total Bilirubin 0.3 (0.2-1.3) mg/dL AST 28 (17-59) U/L ALT 41 (21-72) U/L Alkaline Phosphatase 127 H (38-126) U/L Total Protein 6.5 (6.3-8.2) g/dL Albumin 3.4 L 3.0 L (3.5-5.0) g/dL Assessment and Plan Assessment: Impression History of multiorgan transplant bowel and pancreas 2002 Present on admission dehydration poor oral intake Acute renal failure History of MRSA infection History of multiple wound complications including wound dehiscence last on November 21 Colostomy right lower quadrant Present on admission hypotensive resolving Plan No surgical intervention planned at this time patient is to continue to follow- up February 24 with the [facility] as planned defer to the consultants to address medical issues as they arise Resume TPN as ordered repeat labs in the morning IV fluid per nephrology's recommendations We'll follow with you Surgical consultation note dictated for dr hever dale on behalf of Dr. Marin The above impression and plan of care have been discussed and directed by signing physician. Summer Quintana nurse practitioner acting as scribe for signing physician.
[2018-02-14] MEDS: FAT EMULSION 20% 250 ML in EMPTY BAG 1 BAG IV SCH (16:33)
[2018-02-14] MEDS: DAPTOmycin 500 MG in SODIUM CHLORIDE 0.9% 50 ML IVPB SCH (18:14)
[2018-02-14] MEDS ORDERED: VANCOMYCIN 1,750 MG in SODIUM CHLORIDE 0.9% 500 ML 500 ML IVPB SCH (20:30)
[2018-02-14] MEDS: ANIDULAFUNGIN 100 MG in SODIUM CHLORIDE 0.9% 100 ML IVPB SCH (20:42)
[2018-02-14 21:37] LABS: Iron Saturation 6.61 (15.00-50.00)
[2018-02-14] MEDS: LORazepam 2 MG/ML INJ IV PRN (21:37)
--- NOTE | 2018-02-14 22:13 | PN ---
PROGRESS NOTE DATE OF SERVICE: 02/14/2018 PRESENTING COMPLAINT: Weak and tired. INTERVAL HISTORY: This is a patient with a rather extensive and complicated medical history, including a 4-organ transplant in 2002 with multiple complications recently. The patient just returned from [facility] following an ostomy with a fistula. Now admitted with acute renal failure from high-output ileostomy and fistula. The patient is n.p.o., getting TPN through a Rowell catheter. REVIEW OF SYSTEMS: Done for constitutional, cardiovascular, GI, pulmonary; relevant findings as above. CURRENT MEDICATIONS: Reviewed. They include anidulafungin and IV daptomycin, octreotide. PHYSICAL EXAMINATION: Afebrile, pulse 71, respiration 18, blood pressure 125/59, pulse ox 98% on room air. GENERAL APPEARANCE: Lying in bed, tired-appearing. EYES: Pupils equal. Conjunctivae normal. HEENT: External appearance of nose and ears normal. Oral cavity dry. NECK: JVD not raised. Mass not palpable. RESPIRATORY: Effort increased. LUNGS: Decreased breath sounds. CARDIOVASCULAR: First and second sounds normal. No edema. ABDOMEN: Ileostomy bag and and a bag over the fistula site. Chest wall has a Rowell catheter. PSYCHIATRY: Alert and oriented x3. Mood and affect a bit anxious-appearing. INVESTIGATIONS: White count 13.1, hemoglobin 8.9, platelets 252. Potassium 4.5, BUN 39, creatinine 1.51, magnesium 1.5. Ionized calcium is 5.5, albumin 3.0. ASSESSMENT: 1. Acute renal failure, likely prerenal, from high-output abdominal fistula and ileostomy. 2. Chronic obstructive pulmonary disease in an ex-smoker. 3. Four-organ transplant in 2002, including small bowel, pancreas, duodenum, stomach, being followed at [facility]. 4. Multiple abdominal fistulas, now with a drainage bag in place from [facility]. 5. Gastroesophageal reflux disease. 6. Chronic gastroparesis. 7. Chronic mesenteric vein thrombosis, for which patient is on anticoagulation. 8. Immunosuppressed state. 9. Chronic kidney disease, stage III. 10.Several electrolyte abnormalities, including hypocalcemia, hypomagnesemia. 11.Total parenteral nutrition feeding through a Rowell catheter. Patient remains n.p.o. PLAN: Patient's antibiotics are changed to anidulafungin, IV daptomycin. Tube feeding is being . I&O are strictly being followed. Patient is being followed by multiple consultants. Prognosis guarded. MMODL / IJN: [id number] /
[2018-02-14] MEDS ORDERED: CHOLECALCIFEROL 1,000 UNIT TAB PO SCH (22:56)
--- NOTE | 2018-02-14 23:02 | P.PN ---
Subjective Progress Note Date: 02/14/18 47-year-old male well known to the service regarding his history of his multi organ transplant in 2002. He has had many complications regarding his transplants but more prudent is that during this past summer he's been having increasing difficulties with his abdomen. Apparently there was evidence of abein-ardnru-hlwf in significant inflammation of the small bowel. He constantly underwent explorative laparotomy with lysis of adhesions and placement of an ileostomy. The patient has had significant difficulties with the abdominal cavity since that point in time with the development of significant fistula enlargement of drainage through the anterior abdominal wall. He's been following the [facility] where he recently was admitted with evidence of MRSA infection and fungal infection. He is receiving vancomycin therapy and micafungin. Patient was started feel poorly increasing weakness evidence of significant dehydration and consequently presented to the emergency center. There was evidence of dehydration with acute renal failure and the patient was admitted. Due to the many complex infection issues the ID consultation was requested. The patient does feel poorly is anxious to get home. He has been receiving TPN to try to allow healing of the fistulas and rest his gastrointestinal tract. Also receiving the outpatient intravenous antibiotic therapy for the significant infection. Sandostatin has also been started to try to reduce the amount of drainage through the fistula tracts. The patient is due back at the [facility] on February 24. He's been hospitalized and was continuously since the middle of summer. 02/14/2018 the patient is feeling slightly better today. He is receiving TPN. For Sandostatin infusion has been given. He is denying intermittent difficulties such as fevers or chills.. He's done well with hydration and has adequate urinary output. Pain is well controlled. Objective - Vital Signs Vital signs: Vital Signs Temp 97.5 F L 02/14/18 05:31 Pulse 78 02/14/18 08:50 Resp 18 02/14/18 08:50 BP 125/59 02/14/18 05:31 Pulse Ox 96 02/14/18 09:07 Intake & Output 02/14/18 02/14/18 02/15/18 06:59 18:59 06:59 Intake Total 3100 Output Total 1210 600 Balance 1890 -600 Weight 88.5 kg Intake: Intake, IV Titration 3100 Amount Anidulafungin 100 mg In 100 Sodium Chloride 0.9% 100 ml @ 84 mls/hr IVPB HS GUY Rx#:[id number] Octreotide 200 mcg In 100 Sodium Chloride 0.9% 100 ml @ 200 mls/hr IVPB DAILY GUY Rx#:[id number] Sodium Chloride 0.9% 1, 400 000 ml @ 100 mls/hr IV . Q10H STA Rx#:[id number] Sodium Chloride 0.9% 1, 1500 000 ml @ 125 mls/hr IV . Q8H GUY Rx#:[id number] Sodium Chloride 0.9% 1, 1000 000 ml @ 500 mls/hr IV . Q2H ONE Rx#:[id number] Output: Drainage 610 150 Abdomen 610 150 Urine 600 450 Other: Voiding Method Urinal Urinal # Voids 2 1 - Exam 47-year-old male continues to feel poorly feeling weak and ill at home HEENT: Anicteric conjunctiva are pink and moist nasal mucosa grossly intact without significant lesions, there is no thrush. Neck: The neck is supple without significant lymphadenopathy or thyromegaly. Lungs: Good bilateral air entry without significant crackles or wheezing. There is no significant bronchial sounds. There is no egophony or dullness. Heart: Regular rate and rhythm with an audible S1-S2, no S3 no S4. There is no significant murmur click or rub, PMI was nondisplaced. Abdomen: Few bowel sounds are noted. Scant drainage in the ileostomy bag. The midline ostomy is covering the multiple fistulas and has more drainage than the ileostomy itself. Distinct tenderness in the epigastrium is noted which he relates is not new. Is also some tenderness in this near suprapubic area. No palpable masses in the abdomen is not rigid. Extremities: Left upper extremities evidence of the extensive swelling from the prior DVT, right upper extremity without acute change. Lower extremities with trace edema. IV access right anterior chest wall intact. Neuro: Awake alert oriented to person place and time. There are no acute new gross focal sensory motor deficits. - Labs CBC & Chem 7: 02/14/18 06:15 02/14/18 06:15 Labs: Abnormal Lab Results - Last 24 Hours (Table) 02/14/18 02/14/18 02/14/18 Range/Units 06:15 06:15 11:42 WBC 13.1 H (3.8-10.6) k/uL RBC 3.75 L (4.30-5.90) m/uL Hgb 8.9 L (13.0-17.5) gm/dL Hct 31.1 L (39.0-53.0) % MCH 23.7 L (25.0-35.0) pg MCHC 28.6 L (31.0-37.0) g/dL RDW 17.5 H (11.5-15.5) % Neutrophils # 10.8 H (1.3-7.7) k/uL Chloride 110 H (98-107) mmol/L BUN 39 H (9-20) mg/dL Creatinine 1.51 H (0.66-1.25) mg/dL Glucose 150 H (74-99) mg/dL POC Glucose (mg/dL) (75-99) mg/dL Ionized Calcium Hany 5.5 H (4.5-5.3) mg/dL Magnesium 1.5 L (1.6-2.3) mg/dL Iron (65-175) ug/dL Iron Saturation (15.00-50.00) Ferritin (22.0-322.0) ng/mL Albumin 3.0 L (3.5-5.0) g/dL Triglycerides 153 H (<150) mg/dL Amylase 112 H (30-110) U/L 02/14/18 02/14/18 Range/Units 11:43 11:50 WBC (3.8-10.6) k/uL RBC (4.30-5.90) m/uL Hgb (13.0-17.5) gm/dL Hct (39.0-53.0) % MCH (25.0-35.0) pg MCHC (31.0-37.0) g/dL RDW (11.5-15.5) % Neutrophils # (1.3-7.7) k/uL Chloride (98-107) mmol/L BUN (9-20) mg/dL Creatinine (0.66-1.25) mg/dL Glucose (74-99) mg/dL POC Glucose (mg/dL) 132 H (75-99) mg/dL Ionized Calcium Hany (4.5-5.3) mg/dL Magnesium (1.6-2.3) mg/dL Iron 24 L (65-175) ug/dL Iron Saturation 6.61 L (15.00-50.00) Ferritin 14.7 L (22.0-322.0) ng/mL Albumin (3.5-5.0) g/dL Triglycerides (<150) mg/dL Amylase (30-110) U/L Laboratory Results WBC 13.1 k/uL (3.8-10.6) H 02/14/18 06:15 RBC 3.75 m/uL (4.30-5.90) L 02/14/18 06:15 Hgb 8.9 gm/dL (13.0-17.5) L 02/14/18 06:15 Hct 31.1 % (39.0-53.0) L 02/14/18 06:15 MCV 83.0 fL (80.0-100.0) 02/14/18 06:15 MCH 23.7 pg (25.0-35.0) L 02/14/18 06:15 MCHC 28.6 g/dL (31.0-37.0) L 02/14/18 06:15 RDW 17.5 % (11.5-15.5) H 02/14/18 06:15 Plt Count 152 k/uL (150-450) 02/14/18 06:15 Neutrophils % 83 % 02/14/18 06:15 Lymphocytes % 11 % 02/14/18 06:15 Monocytes % 5 % 02/14/18 06:15 Eosinophils % 1 % 02/14/18 06:15 Basophils % 0 % 02/14/18 06:15 Neutrophils # 10.8 k/uL (1.3-7.7) H 02/14/18 06:15 Lymphocytes # 1.4 k/uL (1.0-4.8) 02/14/18 06:15 Monocytes # 0.7 k/uL (0-1.0) 02/14/18 06:15 Eosinophils # 0.1 k/uL (0-0.7) 02/14/18 06:15 Basophils # 0.0 k/uL (0-0.2) 02/14/18 06:15 Manual Slide Review Performed 02/14/18 06:15 Large Platelets Present 02/14/18 06:15 Hypochromasia Marked 02/14/18 06:15 Poikilocytosis Slight 02/14/18 06:15 Anisocytosis Slight 02/14/18 06:15 Microcytosis Slight 02/13/18 14:21 Target Cells Present 02/14/18 06:15 Ross-Norco Bodies Present 02/14/18 06:15 Fragmented RBCs Present 02/14/18 06:15 PT 9.8 sec (9.0-12.0) 02/13/18 14:21 INR 1.0 (<1.2) 02/13/18 14:21 APTT 25.0 sec (22.0-30.0) 02/13/18 14:21 Sodium 141 mmol/L (137-145) 02/14/18 06:15 Potassium 4.5 mmol/L (3.5-5.1) 02/14/18 06:15 Chloride 110 mmol/L (98-107) H 02/14/18 06:15 Carbon Dioxide 25 mmol/L (22-30) 02/14/18 06:15 Anion Gap 6 mmol/L 02/14/18 06:15 BUN 39 mg/dL (9-20) H 02/14/18 06:15 Creatinine 1.51 mg/dL (0.66-1.25) H 02/14/18 06:15 Est GFR (CKD-EPI)AfAm 62 (>60 ml/min/1.73 sqM) 02/14/18 06:15 Est GFR (CKD-EPI)NonAf 54 (>60 ml/min/1.73 sqM) 02/14/18 06:15 Glucose 150 mg/dL (74-99) H 02/14/18 06:15 POC Glucose (mg/dL) 132 mg/dL (75-99) H 02/14/18 11:43 POC Glu [place] Opener ID Jarod Canela 02/14/18 11:43 Lactic Ac Sepsis Rflx Y 02/13/18 15:21 Plasma Lactic Acid Barrie 1.8 mmol/L (0.7-2.0) 02/13/18 19:40 Calcium 8.6 mg/dL (8.4-10.2) 02/14/18 06:15 Ionized Calcium Hany 5.5 mg/dL (4.5-5.3) H 02/14/18 11:42 Phosphorus 3.6 mg/dL (2.5-4.5) 02/14/18 11:42 Magnesium 1.5 mg/dL (1.6-2.3) L 02/14/18 11:42 Iron 24 ug/dL (65-175) L 02/14/18 11:50 TIBC 363 ug/dL (228-460) 02/14/18 11:50 Iron Saturation 6.61 (15.00-50.00) L 02/14/18 11:50 Ferritin 14.7 ng/mL (22.0-322.0) L 02/14/18 11:50 Total Bilirubin 0.3 mg/dL (0.2-1.3) 02/13/18 14:21 AST 28 U/L (17-59) 02/13/18 14:21 ALT 41 U/L (21-72) 02/13/18 14:21 Alkaline Phosphatase 127 U/L (38-126) H 02/13/18 14:21 Total Creatine Kinase <20 U/L (55-170) L 02/13/18 14:21 CK-MB (CK-2) 1.1 ng/mL (0.0-2.4) 02/13/18 14:21 CK-MB (CK-2) Rel Index 02/13/18 14:21 Troponin I 0.016 ng/mL (0.000-0.034) 02/13/18 14:21 Total Protein 6.5 g/dL (6.3-8.2) 02/13/18 14:21 Albumin 3.0 g/dL (3.5-5.0) L 02/14/18 11:42 Triglycerides 153 mg/dL (<150) H 02/14/18 11:42 Amylase 112 U/L (30-110) H 02/14/18 06:15 Lipase 123 U/L (23-300) 02/14/18 06:15 TSH 1.320 mIU/L (0.465-4.680) 02/13/18 14:21 Free T4 1.09 ng/dL (0.78-2.19) 02/13/18 14:21 Free T3 pg/mL 6.9 pg/ml (2.8-5.3) H 02/13/18 14:21 Urine Color Yellow 02/13/18 20:45 Urine Appearance Clear (Clear) 02/13/18 20:45 Urine pH 5.5 (5.0-8.0) 02/13/18 20:45 Ur Specific [place] 1.020 (1.001-1.035) 02/13/18 20:45 Urine Protein 1+ (Negative) H 02/13/18 20:45 Urine Glucose (UA) Negative (Negative) 02/13/18 20:45 Urine Ketones Negative (Negative) 02/13/18 20:45 Urine Blood Negative (Negative) 02/13/18 20:45 Urine Nitrite Negative (Negative) 02/13/18 20:45 Urine Bilirubin Negative (Negative) 02/13/18 20:45 Urine Urobilinogen <2.0 mg/dL (<2.0) 02/13/18 20:45 Ur Leukocyte Esterase Negative (Negative) 02/13/18 20:45 Urine RBC 1 /hpf (0-5) 02/13/18 20:45 Urine WBC 2 /hpf (0-5) 02/13/18 20:45 Ur Squamous Epith Cells <1 /hpf (0-4) 02/13/18 20:45 Urine Bacteria Rare /hpf (None) H 02/13/18 20:45 Hyaline Casts 8 /lpf (0-2) H 02/13/18 20:45 Granular Casts 5 /lpf (0) 02/13/18 20:45 Urine Mucus Occasional /hpf (None) H 02/13/18 20:45 Vancomycin Trough 18.3 ug/mL 02/13/18 14:40 Random Vancomycin 11.0 ug/mL 02/14/18 06:15 Assessment and Plan (1) Dehydration Current Visit: Yes Status: Acute Code(s): E86.0 - DEHYDRATION SNOMED Code( s): 37039119 (2) Acute renal failure Current Visit: Yes Status: Acute Code(s): N17.9 - ACUTE KIDNEY FAILURE, UNSPECIFIED SNOMED Code(s): 25491258 (3) Encounter for aftercare following multiple organ transplant Current Visit: No Status: Acute Code(s): Z48.288 - ENCOUNTER FOR AFTERCARE FOLLOWING MULTIPLE ORGAN TRANSPLANT SNOMED Code(s): 672534316 (4) MRSA (methicillin resistant Staphylococcus aureus) infection Narrative/Plan: 47-year-old male who has a known history of a multiorgan transplant was recently been cared for at the [facility] and several events with several hospitalizations regarding his increasing difficulties intra- abdominally. He has developed eltfb-fxarqy-uxwe disease to the small bowel transplant and has now required ileostomy placement and exporter laparotomies with lysis of adhesions. 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 He has a ostomy pouch in place together the drainage. Is currently taking only medications by mouth he is not eating, utilizing TPN for his nutrition to try to rest his gut. Sandostatin has recently been added to try to improve his fistula formation. He follows up with the [facility] on February 24. There is evidence of acute renal failure occurring at this time and constantly vancomycin therapy is stopped. We'll check levels in the morning. If they become subtherapeutic we'll then initiate daptomycin therapy for the treatment of MRSA infection of the abdominal area. He was on micafungin, this is transitioned to Eraxis due to our formulary issues. Wound care will be with the ostomy pouch which the can bring from home to be reapplied to the abdominal wall. We'll give him further fluids over his creatinine will rapidly improve and then we can work with the transplant center for his transition to home potentially transitioning vancomycin to daptomycin for his home therapy. 02/14/2018 patient is feeling better today. TPN is started. First dose of Sandostatin as been given. The abdominal wall fistula seems to be having at least decrease drainage. No new pain. Antibiotic therapy will not be with daptomycin given at the Vanco trough was 11. Continue the Eraxis for antifungal therapy. We'll need input from the transplant center the time of discharge to ensure they agree with the course of antibiotic therapy antimicrobial therapy at discharge. Current Visit: Yes Status: Acute Code(s): A49.02 - METHICILLIN RESIS STAPH INFECTION, UNSP SITE SNOMED Code(s): 721374024
[2018-02-15] MEDS: HYDROmorphone 1 MG/ML 1 ML SYRINGE IVP PRN ×6 (01:23→20:10)
[2018-02-15 01:52] LABS: Glucose,Whole Blood 227 mg/dL (75-99)
[2018-02-15 06:14] LABS: Glucose,Whole Blood 160 mg/dL (75-99)
[2018-02-15 06:40] LABS: Anisocytosis Slight; HCT 29.5 % (39.0-53.0); Hypochromasia Marked; MCHC 30.5 g/dL (31.0-37.0); MCV 81.9 fL (80.0-100.0); Mean Platelet Volume 12.9; Platelet Count 231 k/uL (150-450); Poikilocytosis Slight; RDW 17.4 % (11.5-15.5); WBC 11.1 k/uL (3.8-10.6)
[2018-02-15 06:42] LABS: Ionized Calcium 5.4 mg/dL (4.5-5.3)
[2018-02-15 06:51] LABS: Calcium 8.8 mg/dL (8.4-10.2); Magnesium 1.4 mg/dL (1.6-2.3); Phosphorus 2.8 mg/dL (2.5-4.5); Potassium 3.7 mmol/L (3.5-5.1)
[2018-02-15 07:06] LABS: Monocytes # (M) 1.11 k/uL (0-1.0); Neutrophils # (M) 8.99 k/uL (1.3-7.7); Neutrophils % (M) 81 %; Nucleated Red Blood Cells 0 /100 WBC (0-0); RBC Fragments Present; Total Cells Counted 100
[2018-02-15 07:07] LABS: Large Platelets Present; Target Cells Present
[2018-02-15] MEDS: SYMBICORT 160-4.5 MCG INHALER INHALATION SCH ×2 (08:41→20:19)
[2018-02-15] MEDS: HYDROCORTISONE SUCCINATE 100 MG/2 ML VIAL IV SCH ×3 (09:08→23:59)
[2018-02-15] MEDS: CALCIUM CARBONATE 500 MG CHEWABLE PO SCH ×4 (09:09→22:45)
[2018-02-15] MEDS: GABAPENTIN 400 MG CAP PO SCH ×3 (09:09→22:45)
[2018-02-15] MEDS: MULTIVITAMINS, THERA 1 EACH TAB PO SCH (09:09)
[2018-02-15] MEDS: NYSTATIN 100,000 UNIT/ML SUSP 500,000 UNIT/5 ML CUP PO SCH ×4 (09:09→22:45)
[2018-02-15] MEDS: PANTOPRAZOLE 40 MG/10 ML VIAL IV SCH (09:10)
[2018-02-15] MEDS: QUEtiapine 25 MG TAB PO SCH ×2 (09:10→20:11)
[2018-02-15] MEDS: TACROLIMUS 1 MG CAP PO SCH ×2 (09:11→20:12)
[2018-02-15] MEDS: SUCRALFATE 1 GM TAB PO SCH ×2 (09:11→20:11)
[2018-02-15] MEDS: SERTRALINE 100 MG TAB PO SCH (09:11)
[2018-02-15] MEDS: FONDAPARINUX 2.5 MG/0.5 ML SYRINGE SQ SCH (09:13)
[2018-02-15] MEDS: METHADONE 10 MG TAB PO SCH ×2 (09:26→20:11)
--- NOTE | 2018-02-15 09:51 | P.PN ---
Progress Note - Text Progress Note Date: 02/15/18 The patient is resting comfortably in his bed. He denies any acute changes. On exam is lesser stable. His abdomen soft. Patient will continue just supportive care. He is scheduled see his transplant surgeons at the [facility] in the next 2 weeks.
[2018-02-15 11:22] LABS: Glucose,Whole Blood 127 mg/dL (75-99)
[2018-02-15] MEDS: OCTREOTIDE 200 MCG in SODIUM CHLORIDE 0.9% 100 ML IVPB SCH (12:11)
[2018-02-15] MEDS: FLECAINIDE 50 MG TAB PO SCH ×2 (12:24→22:45)
--- NOTE | 2018-02-15 14:15 | P.PN ---
Subjective Progress Note Date: 02/15/18 (Nephrology) Principal diagnosis: Acute kidney injury Seen and examined for the follow-up of acute kidney injury. Feels better today good urine output no nausea vomiting or diarrhea Objective - Vital Signs Vital signs: Vital Signs Temp 98.4 F 02/15/18 04:41 Pulse 63 02/15/18 04:41 Resp 16 02/15/18 04:41 BP 124/58 02/15/18 04:41 Pulse Ox 96 02/15/18 04:41 Intake & Output 02/14/18 02/15/18 02/15/18 18:59 06:59 18:59 Output Total 600 Balance -600 Weight 88.5 kg Output: Drainage 150 Abdomen 150 Urine 450 Other: Voiding Method Urinal Urinal # Voids 1 - Exam No acute distress S1-S2 heard Lungs clear Abdomen open wound VAC - Labs CBC & Chem 7: 02/15/18 06:13 02/15/18 06:13 Labs: Abnormal Lab Results - Last 24 Hours (Table) 02/14/18 02/14/18 02/15/18 Range/Units 11:42 11:50 01:32 WBC (3.8-10.6) k/uL RBC (4.30-5.90) m/uL Hgb (13.0-17.5) gm/dL Hct (39.0-53.0) % MCHC (31.0-37.0) g/dL RDW (11.5-15.5) % Neutrophils # (Manual) (1.3-7.7) k/uL Monocytes # (Manual) (0-1.0) k/uL BUN (9-20) mg/dL Glucose (74-99) mg/dL POC Glucose (mg/dL) 227 H (75-99) mg/dL Ionized Calcium Hany (4.5-5.3) mg/dL Magnesium 1.5 L (1.6-2.3) mg/dL Iron 24 L (65-175) ug/dL Iron Saturation 6.61 L (15.00-50.00) Ferritin 14.7 L (22.0-322.0) ng/mL Albumin 3.0 L (3.5-5.0) g/dL Triglycerides 153 H (<150) mg/dL 02/15/18 02/15/18 02/15/18 Range/Units 06:07 06:13 06:13 WBC 11.1 H (3.8-10.6) k/uL RBC 3.60 L (4.30-5.90) m/uL Hgb 9.0 L (13.0-17.5) gm/dL Hct 29.5 L (39.0-53.0) % MCHC 30.5 L (31.0-37.0) g/dL RDW 17.4 H (11.5-15.5) % Neutrophils # (Manual) 8.99 H (1.3-7.7) k/uL Monocytes # (Manual) 1.11 H (0-1.0) k/uL BUN 24 H (9-20) mg/dL Glucose 136 H (74-99) mg/dL POC Glucose (mg/dL) 160 H (75-99) mg/dL Ionized Calcium Hany 5.4 H (4.5-5.3) mg/dL Magnesium 1.4 L (1.6-2.3) mg/dL Iron (65-175) ug/dL Iron Saturation (15.00-50.00) Ferritin (22.0-322.0) ng/mL Albumin (3.5-5.0) g/dL Triglycerides (<150) mg/dL 02/15/18 Range/Units 11:20 WBC (3.8-10.6) k/uL RBC (4.30-5.90) m/uL Hgb (13.0-17.5) gm/dL Hct (39.0-53.0) % MCHC (31.0-37.0) g/dL RDW (11.5-15.5) % Neutrophils # (Manual) (1.3-7.7) k/uL Monocytes # (Manual) (0-1.0) k/uL BUN (9-20) mg/dL Glucose (74-99) mg/dL POC Glucose (mg/dL) 127 H (75-99) mg/dL Ionized Calcium Hany (4.5-5.3) mg/dL Magnesium (1.6-2.3) mg/dL Iron (65-175) ug/dL Iron Saturation (15.00-50.00) Ferritin (22.0-322.0) ng/mL Albumin (3.5-5.0) g/dL Triglycerides (<150) mg/dL Assessment and Plan Assessment: #1 nonoliguric acute kidney injury secondary to prerenal process, creatinine back to baseline #2 lactic acidosis secondary to hypoperfusion #3 hypotension secondary to volume depletion #4 anemia #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 #2 avoid nephrotoxic agents and hypotensive episodes #3 IV fluids can be discontinued
[2018-02-15] MEDS: FAT EMULSION 20% 250 ML in EMPTY BAG 1 BAG IV SCH (15:07)
[2018-02-15] MEDS: 1: MVI, ADULT NO.4 WITH VIT K 10 ML, TRACE (CONC-1ML/DOSE) 1 ML in AMINO ACID 5%-D15W+LY IV SCH ×3 (15:07)
[2018-02-15] MEDS: LORazepam 2 MG/ML INJ IV PRN ×2 (16:25→22:45)
[2018-02-15] MEDS: SODIUM CHLORIDE 0.9% 1,000 ML IV SCH (16:28)
[2018-02-15] MEDS: DAPTOmycin 500 MG in SODIUM CHLORIDE 0.9% 50 ML IVPB SCH (16:31)
[2018-02-15 16:52] LABS: Glucose,Whole Blood 194 mg/dL (75-99)
[2018-02-15] MEDS: traZODone HCL 100 MG TAB PO SCH (20:11)
[2018-02-15] MEDS: ANIDULAFUNGIN 100 MG in SODIUM CHLORIDE 0.9% 100 ML IVPB SCH (20:17)
[2018-02-15 23:58] LABS: Glucose,Whole Blood 159 mg/dL (75-99)
[2018-02-16] MEDS: HYDROmorphone 1 MG/ML 1 ML SYRINGE IVP PRN ×6 (01:37→23:17)
[2018-02-16] MEDS: 1: MVI, ADULT NO.4 WITH VIT K 10 ML, TRACE (CONC-1ML/DOSE) 1 ML in AMINO ACID 5%-D15W+LY IV SCH ×6 (04:50→20:19)
[2018-02-16] MEDS: LORazepam 2 MG/ML INJ IV PRN ×3 (04:50→20:05)
[2018-02-16 06:23] LABS: Anisocytosis Slight; Basophils % (A) 0 %; Eosinophils # (A) 0.1 k/uL (0-0.7); Eosinophils % (A) 1 %; HCT 29.5 % (39.0-53.0); HGB 8.7 gm/dL (13.0-17.5); Hypochromasia Marked; Lymphocytes # (A) 1.6 k/uL (1.0-4.8); Lymphocytes % (A) 14 %; MCH 24.3 pg (25.0-35.0); MCHC 29.7 g/dL (31.0-37.0); MCV 81.9 fL (80.0-100.0); Mean Platelet Volume 12.9; Monocytes # (A) 0.9 k/uL (0-1.0); Monocytes % (A) 8 %; Neutrophils % (A) 76 %; Platelet Count 230 k/uL (150-450); Poikilocytosis Slight; RDW 17.3 % (11.5-15.5); WBC 11.8 k/uL (3.8-10.6)
[2018-02-16 06:26] LABS: Glucose,Whole Blood 145 mg/dL (75-99)
[2018-02-16 06:30] LABS: Ionized Calcium 5.2 mg/dL (4.5-5.3)
[2018-02-16 06:45] LABS: Anion Gap 6 mmol/L; Blood Urea Nitrogen 21 mg/dL (9-20); Calcium 8.6 mg/dL (8.4-10.2); Carbon Dioxide 31 mmol/L (22-30); Chloride 105 mmol/L (98-107); Glucose 133 mg/dL (74-99); Magnesium 1.2 mg/dL (1.6-2.3); Phosphorus 3.2 mg/dL (2.5-4.5); Potassium 3.4 mmol/L (3.5-5.1); Sodium 142 mmol/L (137-145)
--- NOTE | 2018-02-16 06:57 | PN ---
PROGRESS NOTE DATE OF SERVICE: February 15, 2018. PRESENTING COMPLAINT: Weak and tired. INTERVAL HISTORY: This patient has rather extensive medical history including 2002 and recent complications including intestinal fistulas, presented with acute renal failure, high output ileostomy and fistula. The patient is getting feeding through a Rowell catheter/TPN. Feels more better today. REVIEW OF SYSTEMS: Done for constitutional, cardiovascular, GI, pulmonary; relevant findings as above. CURRENT MEDICATIONS: Reviewed that include IV antifungal, daptomycin, octreotide. PHYSICAL EXAMINATION: VITAL SIGNS: Temperature 98.4, pulse 72, respiratory 18, blood pressure 100/58, pulse ox 96% on room air. GENERAL APPEARANCE: Lying in bed, awake. EYES: Pupils equal. Conjunctivae normal. HEENT: External appearance of nose and ears normal. Oral cavity normal. NECK: JVD not raised. Mass not palpable. RESPIRATORY: Effort normal. LUNGS: Decreased breath sounds. CARDIOVASCULAR: 1st and 2nd sounds. No edema. ABDOMEN: Ileostomy bag in place and bag was over the fistula site, chest wall with Rowell catheter. PSYCHIATRY: Alert and oriented x3. Mood and affect slightly anxious-appearing. INVESTIGATIONS: White count 11.1, hemoglobin 9, creatinine down to 1.11. ASSESSMENT: 1. Acute renal failure likely prerenal from high output abdominal fistula and ileostomy with improvement. 2. Chronic obstructive pulmonary disease in an ex-smoker. 3. Four organ transplant 2002 including small-bowel, pancreas, duodenum and stomach, being followed at [facility], multiple abdominal fistulas, now with a drainage bag from [facility]. 4. Gastroesophageal reflux disease. 5. Chronic gastroparesis. 6. Chronic mesenteric vein thrombosis for which patient is on anticoagulation. 7. Immunosuppression state. 8. Chronic kidney disease stage 3. 9. Severe electrolyte abnormalities including hypocalcemia, hypomagnesemia. 10.TPN feedings through the Rowell catheter. PLAN: Continue with current patient antibiotics. The patient has also been on octreotide. We will cut back the dose of Solu-Cortef and see how the patient does with electrolytes. Follow. MMODL / IJN: [id number] /
[2018-02-16 07:01] LABS: Large Platelets Present; Target Cells Present
[2018-02-16 07:02] LABS: Ovalocytes Present; RBC Fragments Present
[2018-02-16 07:03] LABS: Howell-Jolly Bodies Present
[2018-02-16] MEDS: SYMBICORT 160-4.5 MCG INHALER INHALATION SCH ×2 (08:12→21:02)
[2018-02-16] MEDS: METHADONE 10 MG TAB PO SCH ×2 (08:36→20:02)
[2018-02-16] MEDS: CALCIUM CARBONATE 500 MG CHEWABLE PO SCH ×4 (08:37→23:06)
[2018-02-16] MEDS: GABAPENTIN 400 MG CAP PO SCH ×3 (08:37→23:06)
[2018-02-16] MEDS: FONDAPARINUX 2.5 MG/0.5 ML SYRINGE SQ SCH (08:37)
[2018-02-16] MEDS: HYDROCORTISONE SUCCINATE 100 MG/2 ML VIAL IV SCH ×3 (08:37→23:07)
[2018-02-16] MEDS: MULTIVITAMINS, THERA 1 EACH TAB PO SCH (08:38)
[2018-02-16] MEDS: QUEtiapine 25 MG TAB PO SCH ×2 (08:38→20:04)
[2018-02-16] MEDS: TACROLIMUS 1 MG CAP PO SCH ×2 (08:38→20:04)
[2018-02-16] MEDS: NYSTATIN 100,000 UNIT/ML SUSP 500,000 UNIT/5 ML CUP PO SCH ×4 (08:38→23:06)
[2018-02-16] MEDS: PANTOPRAZOLE 40 MG/10 ML VIAL IV SCH (08:38)
[2018-02-16] MEDS: SUCRALFATE 1 GM TAB PO SCH ×2 (08:38→20:03)
[2018-02-16] MEDS: SERTRALINE 100 MG TAB PO SCH (08:39)
[2018-02-16] MEDS ORDERED: Potassium Replacement Protocol 1 EACH MISC MISCELLANE PRN (09:54)
[2018-02-16] MEDS ORDERED: Magnesium Replacement Protocol 1 EACH MISC MISCELLANE PRN (09:56)
--- NOTE | 2018-02-16 10:05 | P.PN ---
Progress Note - Text Progress Note Date: 02/16/18 The patient's resting copies bed. He denies any significant abdominal pain. On exam is lesser stable. His evidence soft. Status post dehydration. Patient is had previous foregut transplant at [facility]. He is scheduled see his transplant doctors the next 10 days.
[2018-02-16 11:25] LABS: Glucose,Whole Blood 138 mg/dL (75-99)
[2018-02-16] MEDS: POTASSIUM CHLORIDE 20 MEQ in WATER FOR INJECTION 1 100ML.BAG IVPB SCH ×2 (11:27→13:32)
[2018-02-16] MEDS: MAGNESIUM SULFATE-D5W PMX 1 GM in DEXTROSE/WATER 1 100ML.BAG IVPB SCH ×3 (11:27→15:07)
[2018-02-16] MEDS: FLECAINIDE 50 MG TAB PO SCH ×2 (12:34→23:06)
[2018-02-16] MEDS: SODIUM CHLORIDE 0.9% 1,000 ML IV SCH (15:12)
[2018-02-16] MEDS: FAT EMULSION 20% 250 ML in EMPTY BAG 1 BAG IV SCH (15:59)
[2018-02-16 17:29] LABS: Glucose,Whole Blood 133 mg/dL (75-99)
[2018-02-16] MEDS: DAPTOmycin 500 MG in SODIUM CHLORIDE 0.9% 50 ML IVPB SCH (17:30)
[2018-02-16] MEDS: traZODone HCL 100 MG TAB PO SCH (20:03)
[2018-02-16] MEDS: ANIDULAFUNGIN 100 MG in SODIUM CHLORIDE 0.9% 100 ML IVPB SCH (20:04)
--- NOTE | 2018-02-16 21:20 | PN ---
PROGRESS NOTE DATE OF SERVICE: 02/16/2018. PRESENTING COMPLAINT: Tired. INTERVAL HISTORY: This patient has a rather extensive medical history including four-organ transplant in 2002, now with recent complications including intestinal fistula, presented with acute renal failure with a high output ileostomy and fistula. The patient is getting feeding through Rowell catheter. The patient is otherwise n.p.o. Feeling better. Renal function is improving. REVIEW OF SYSTEMS: The patient's octreotide was discontinued yesterday. REVIEW OF SYSTEMS: Done for constitutional, cardiovascular, GI, pulmonary; relevant findings as above. CURRENT MEDICATIONS: Reviewed, include IV antifungal, daptomycin, TPN. PHYSICAL EXAMINATION: Temperature 98, pulse 60, respirations 18, blood pressure 104/59, pulse ox 95% on room air. GENERAL APPEARANCE: Lying in bed, awake. EYES: Pupils equal. Conjunctivae normal. HEENT: External nose and ears normal. Oral cavity normal. NECK: JVD not raised. Mass not palpable. Respiratory effort normal. LUNGS: Decreased breath sounds. CARDIOVASCULAR: 1st and 2nd sounds. No edema. ABDOMEN: Soft. Minimal tenderness. Ileostomy in place and bag over the fistula site. Chest wall has a Rowell catheter. PSYCHIATRY: Alert and oriented x3. Mood and affect normal. INVESTIGATIONS: White count 11.8, hemoglobin 8.7, potassium 3.4. ASSESSMENT: 1. Acute renal failure, likely prerenal from high-output abdominal fistula and ileostomy, with near resolution. 2. Chronic obstructive pulmonary disease in an ex-smoker. 3. Four organ transplant in 2002 including small-bowel, pancreas, duodenum and stomach; being followed by [facility]. 4. Multiple abdomen fistulas, now with a drainage bag from [facility]. 5. Gastroesophageal reflux disease. 6. Chronic gastroparesis. 7. Chronic mesenteric vein thrombosis for which patient is on anticoagulation. 8. Immunosuppressed state. 9. Chronic kidney disease stage 3. 10.Severe electrolyte abnormalities including hypocalcemia and hypomagnesemia. 11.Total parenteral nutrition, feeding through the Rowell catheter. PLAN: Overall patient doing better. We will discontinue the IV fluids today and see how the patient does on current regimen. We will keep the patient on IV Cortef today. Also spoke to patient's transplant surgeon, Dr. Palacios, at telephone number [phone]. I did update him. He was quite satisfied with progress reported from here. MMODL / IJN: [id number] /
[2018-02-16 23:51] LABS: Glucose,Whole Blood 124 mg/dL (75-99)
[2018-02-17] MEDS: SODIUM CHLORIDE 0.9% 1,000 ML IV SCH (02:30)
[2018-02-17] MEDS: LORazepam 2 MG/ML INJ IV PRN ×3 (02:35→15:24)
[2018-02-17] MEDS: HYDROmorphone 1 MG/ML 1 ML SYRINGE IVP PRN ×4 (03:49→16:42)
[2018-02-17 06:22] LABS: Glucose,Whole Blood 151 mg/dL (75-99)
[2018-02-17 07:11] VITALS: RESP 18
[2018-02-17] MEDS: SYMBICORT 160-4.5 MCG INHALER INHALATION SCH (07:17)
[2018-02-17] MEDS: TACROLIMUS 1 MG CAP PO SCH (08:40)
[2018-02-17] MEDS: SUCRALFATE 1 GM TAB PO SCH (08:41)
[2018-02-17] MEDS: SERTRALINE 100 MG TAB PO SCH (08:41)
[2018-02-17] MEDS: QUEtiapine 25 MG TAB PO SCH (08:42)
[2018-02-17] MEDS: MULTIVITAMINS, THERA 1 EACH TAB PO SCH (08:42)
[2018-02-17] MEDS: NYSTATIN 100,000 UNIT/ML SUSP 500,000 UNIT/5 ML CUP PO SCH ×2 (08:42→12:41)
[2018-02-17] MEDS: FONDAPARINUX 2.5 MG/0.5 ML SYRINGE SQ SCH (08:42)
[2018-02-17] MEDS: GABAPENTIN 400 MG CAP PO SCH ×2 (08:42→16:31)
[2018-02-17] MEDS: HYDROCORTISONE SUCCINATE 100 MG/2 ML VIAL IV SCH ×2 (08:43→16:31)
[2018-02-17] MEDS: CALCIUM CARBONATE 500 MG CHEWABLE PO SCH ×2 (08:43→12:41)
[2018-02-17] MEDS: PANTOPRAZOLE 40 MG/10 ML VIAL IV SCH (08:47)
[2018-02-17] MEDS: METHADONE 10 MG TAB PO SCH (08:47)
--- NOTE | 2018-02-17 09:02 | P.PN ---
Subjective Patient is seen in follow-up for acute kidney injury. Renal function is improved. He is maintained on TPN. Denies nausea or vomiting. No active complaints at this time. Vital signs are stable. General: The patient appeared well nourished and normally developed. HEENT: Head exam is unremarkable. Neck is without jugular venous distension. LUNGS: Lungs are clear to auscultation and percussion. Breath sounds decreased. HEART: Rate and Rhythm are regular. First and second heart sounds normal. No murmurs, rubs or gallops. ABDOMEN: Abdominal exam reveals normal bowel sounds. Non-tender and non- distended. No evidence of peritonitis. EXTREMITITES: No clubbing, cyanosis, or edema. Objective - Vital Signs Vital signs: Vital Signs Temp 97.8 F 02/17/18 07:10 Pulse 66 02/17/18 07:10 Resp 18 02/17/18 07:10 BP 116/55 02/17/18 07:10 Pulse Ox 97 02/17/18 07:10 Intake & Output 02/16/18 02/17/18 02/17/18 18:59 06:59 18:59 Weight 89 kg Other: Voiding Method Urinal - Labs CBC & Chem 7: 02/16/18 06:14 02/16/18 06:14 Labs: Abnormal Lab Results - Last 24 Hours (Table) 02/16/18 02/16/18 02/16/18 Range/Units 11:23 17:27 23:49 POC Glucose (mg/dL) 138 H 133 H 124 H (75-99) mg/dL 02/17/18 Range/Units 06:20 POC Glucose (mg/dL) 151 H (75-99) mg/dL Assessment and Plan Plan: Assessment: 1. Nonoliguric acute kidney injury mostly prerenal secondary to hypotension and intravascular volume depletion from high output from ostomy improving with IV hydration. I do note Bactrim in his home medications which can also falsely increase creatinine by impairing its secretion. Creatinine was 1.77 on admission and was down to 1.01 as of yesterday. Baseline creatinine is near 1. 2. Lactic acidosis secondary to hypoperfusion. Improved with IV hydration. 3. Hypotension from intravascular volume depletion. Improved. 4. History of small bowel, pancreatic and duodenal transplant. Maintain on Prograf. 5. Anemia. Iron deficiency noted. 6. Hypokalemia secondary to hypomagnesemia and poor oral intake. Status post placement. 7. Hypomagnesemia from poor oral intake and GI losses. Status post placement. Plan: Maintain TPN. Check potassium and magnesium today. Ferrlecit 125 mg IV daily for 3 days. First dose today. Avoid nephrotoxins. Repeat electrolytes in the morning.
[2018-02-17] MEDS ORDERED: SODIUM FERRIC GLUCONAT-SUCROSE 125 MG in SODIUM CHLORIDE 0.9% 100 ML IVPB SCH (10:00)
[2018-02-17] MEDS: FLECAINIDE 50 MG TAB PO SCH (11:42)
[2018-02-17] MEDS: 1: MVI, ADULT NO.4 WITH VIT K 10 ML, TRACE (CONC-1ML/DOSE) 1 ML in AMINO ACID 5%-D15W+LY IV SCH ×3 (11:42)
[2018-02-17 12:20] LABS: Glucose,Whole Blood 160 mg/dL (75-99)
[2018-02-17 13:29] VITALS: BMI 25.2
[2018-02-17 14:29] LABS: Anion Gap 7 mmol/L; Blood Urea Nitrogen 22 mg/dL (9-20); Carbon Dioxide 29 mmol/L (22-30); Chloride 104 mmol/L (98-107); Glucose 154 mg/dL (74-99); Magnesium 1.6 mg/dL (1.6-2.3); Phosphorus 3.1 mg/dL (2.5-4.5); Potassium 3.8 mmol/L (3.5-5.1); Sodium 140 mmol/L (137-145)
[2018-02-17 14:34] LABS: Ionized Calcium 5.1 mg/dL (4.5-5.3)
--- NOTE | 2018-02-17 14:44 | CDI ---
Last Revision, March 2017 Documentation Clarification Form Date: 02/17/18 From: Rhina Monge RN Admit Date: 02/14/2018 11:45:00 AM Patient Name: Adrian Dubon Visit Number: [id number] ATTENTION: The Clinical Documentation Specialists (CDI) and [facility] Coding Staff appreciate your assistance in clarifying documentation. Please respond to the clarification below the line at the bottom and electronically sign. The CDI & [facility] Coding staff will review the response and follow-up if needed. Please note: Queries are made part of the Legal Health Record. If you have any questions, please contact the author of this message via ITS. Angel Lucas MD, Documentation history of COPD is located in the 02/[address] Suárez, 02/[address] Schneider, H&P 02/13, and the ED note. Pt. admitted with Dehydration History/Risk Factors: A FIB, COPD, . adrenal insufficiency, chronic anemia, CKD 3, immunosuppressed state Clinical Indicators: CXR: no acute cardiopulmonary process, correlate for pulmonary artery HTN. Vital Signs on admission:T 97.7, P 96, R 24, 85/52, 100% RA Lung and Respiratory Assessment: normal Treatment: Nebulizers: symbicort Antibiotics: Anidulafungin IVPB, Daptomycin IVPB, Vanco. IVPB In your professional opinion, can you please clarify if the above findings and treatment signify any of the following? Acute on Chronic Obstructive Asthma Acute on chronic bronchitis Emphysema Other condition, please specify Unable to determine MTDD
[2018-02-17 14:45] VITALS: BP 120/59; PULSE 71; TEMP 97.9
[2018-02-17] MEDS ORDERED: POTASSIUM CHLORIDE 10 MEQ in WATER FOR INJECTION 1 100ML.BAG IVPB ONE (15:00)
[2018-02-17] MEDS: MAGNESIUM SULFATE-D5W PMX 1 GM in DEXTROSE/WATER 1 100ML.BAG IVPB SCH ×2 (15:23→16:30)
[2018-02-17] MEDS: DAPTOmycin 500 MG in SODIUM CHLORIDE 0.9% 50 ML IVPB SCH (16:30)
[2018-02-17] MEDS: FAT EMULSION 20% 250 ML in EMPTY BAG 1 BAG IV SCH (16:31)
--- NOTE | 2018-02-17 22:02 | P.PN ---
Subjective Progress Note Date: 02/17/18 47-year-old male well known to the service regarding his history of his multi organ transplant in 2002. He has had many complications regarding his transplants but more prudent is that during this past summer he's been having increasing difficulties with his abdomen. Apparently there was evidence of [id number] in significant inflammation of the small bowel. He constantly underwent explorative laparotomy with lysis of adhesions and placement of an ileostomy. The patient has had significant difficulties with the abdominal cavity since that point in time with the development of significant fistula enlargement of drainage through the anterior abdominal wall. He's been following the [facility] where he recently was admitted with evidence of MRSA infection and fungal infection. He is receiving vancomycin therapy and micafungin. Patient was started feel poorly increasing weakness evidence of significant dehydration and consequently presented to the emergency center. There was evidence of dehydration with acute renal failure and the patient was admitted. Due to the many complex infection issues the ID consultation was requested. The patient does feel poorly is anxious to get home. He has been receiving TPN to try to allow healing of the fistulas and rest his gastrointestinal tract. Also receiving the outpatient intravenous antibiotic therapy for the significant infection. Sandostatin has also been started to try to reduce the amount of drainage through the fistula tracts. The patient is due back at the [facility] on February 24. He's been hospitalized and was continuously since the middle of summer. 02/14/2018 the patient is feeling slightly better today. He is receiving TPN. For Sandostatin infusion has been given. He is denying intermittent difficulties such as fevers or chills.. He's done well with hydration and has adequate urinary output. Pain is well controlled. 02/17/2018. The patient is feeling better today. The case is discussed with the hospitalist. He is denying difficulties. We'll need to have the wound ostomy nurse come to see him soon to change the large pouch on the midline of the abdomen which is utilized to collect the drainage from his fistula. He overall is feeling better. Having no difficulties with current antibiotic therapy. The hospitalist discontinued the Sandostatin. TPN has been restarted with the dietitian staff. He is feeling better than admission. Objective - Vital Signs Vital signs: Vital Signs Temp 97.9 F 02/17/18 12:35 Pulse 71 02/17/18 12:35 Resp 18 02/17/18 12:35 BP 120/59 02/17/18 12:35 Pulse Ox 92 L 02/17/18 12:35 Intake & Output 02/17/18 02/17/18 02/18/18 06:59 18:59 06:59 Intake Total 1000 Output Total 400 Balance 1000 -400 Weight 89 kg 89 kg Intake: Intake, IV Titration 1000 Amount Amino Acid 5%-D15w+Lytes* 1000 E* 1,000 ml @ 70 mls/hr IV .BY DURATION GUY Rx#: [id number] Output: Urine 400 Other: Voiding Method Urinal Urinal - Exam 47-year-old male continues to feel poorly feeling weak and ill at home HEENT: Anicteric conjunctiva are pink and moist nasal mucosa grossly intact without significant lesions, there is no thrush. Neck: The neck is supple without significant lymphadenopathy or thyromegaly. Lungs: Good bilateral air entry without significant crackles or wheezing. There is no significant bronchial sounds. There is no egophony or dullness. Heart: Regular rate and rhythm with an audible S1-S2, no S3 no S4. There is no significant murmur click or rub, PMI was nondisplaced. Abdomen: Few bowel sounds are noted. Scant drainage in the ileostomy bag. The midline ostomy is covering the multiple fistulas and has more drainage than the ileostomy itself. Distinct tenderness in the epigastrium is noted which he relates is not new. Is also some tenderness in this near suprapubic area. No palpable masses in the abdomen is not rigid. Extremities: Left upper extremities evidence of the extensive swelling from the prior DVT, right upper extremity without acute change. Lower extremities with trace edema. IV access right anterior chest wall intact. Neuro: Awake alert oriented to person place and time. There are no acute new gross focal sensory motor deficits. - Labs CBC & Chem 7: 02/16/18 06:14 02/17/18 13:59 Labs: Abnormal Lab Results - Last 24 Hours (Table) 02/16/18 02/17/18 02/17/18 Range/Units 23:49 06:20 12:19 BUN (9-20) mg/dL Glucose (74-99) mg/dL POC Glucose (mg/dL) 124 H 151 H 160 H (75-99) mg/dL 02/17/18 Range/Units 13:59 BUN 22 H (9-20) mg/dL Glucose 154 H (74-99) mg/dL POC Glucose (mg/dL) (75-99) mg/dL Laboratory Results WBC 11.8 k/uL (3.8-10.6) H 02/16/18 06:14 RBC 3.60 m/uL (4.30-5.90) L 02/16/18 06:14 Hgb 8.7 gm/dL (13.0-17.5) L 02/16/18 06:14 Hct 29.5 % (39.0-53.0) L 02/16/18 06:14 MCV 81.9 fL (80.0-100.0) 02/16/18 06:14 MCH 24.3 pg (25.0-35.0) L 02/16/18 06:14 MCHC 29.7 g/dL (31.0-37.0) L 02/16/18 06:14 RDW 17.3 % (11.5-15.5) H 02/16/18 06:14 Plt Count 230 k/uL (150-450) 02/16/18 06:14 Neutrophils % 76 % 02/16/18 06:14 Neutrophils % (Manual) 81 % 02/15/18 06:13 Lymphocytes % 14 % 02/16/18 06:14 Lymphocytes % (Manual) 9 % 02/15/18 06:13 Monocytes % 8 % 02/16/18 06:14 Monocytes % (Manual) 10 % 02/15/18 06:13 Eosinophils % 1 % 02/16/18 06:14 Basophils % 0 % 02/16/18 06:14 Neutrophils # 9.0 k/uL (1.3-7.7) H 02/16/18 06:14 Neutrophils # (Manual) 8.99 k/uL (1.3-7.7) H 02/15/18 06:13 Lymphocytes # 1.6 k/uL (1.0-4.8) 02/16/18 06:14 Lymphocytes # (Manual) 1.00 k/uL (1.0-4.8) 02/15/18 06:13 Monocytes # 0.9 k/uL (0-1.0) 02/16/18 06:14 Monocytes # (Manual) 1.11 k/uL (0-1.0) H 02/15/18 06:13 Eosinophils # 0.1 k/uL (0-0.7) 02/16/18 06:14 Basophils # 0.0 k/uL (0-0.2) 02/16/18 06:14 Nucleated RBCs 0 /100 WBC (0-0) 02/15/18 06:13 Manual Slide Review Performed 02/16/18 06:14 Large Platelets Present 02/16/18 06:14 Hypochromasia Marked 02/16/18 06:14 Poikilocytosis Slight 02/16/18 06:14 Anisocytosis Slight 02/16/18 06:14 Microcytosis Slight 02/13/18 14:21 Target Cells Present 02/16/18 06:14 Ovalocytes Present 02/16/18 06:14 [place] Bodies Present 02/16/18 06:14 Fragmented RBCs Present 02/16/18 06:14 PT 9.8 sec (9.0-12.0) 02/13/18 14:21 INR 1.0 (<1.2) 02/13/18 14:21 APTT 25.0 sec (22.0-30.0) 02/13/18 14:21 Sodium 140 mmol/L (137-145) 02/17/18 13:59 Potassium 3.8 mmol/L (3.5-5.1) 02/17/18 13:59 Chloride 104 mmol/L (98-107) 02/17/18 13:59 Carbon Dioxide 29 mmol/L (22-30) 02/17/18 13:59 Anion Gap 7 mmol/L 02/17/18 13:59 BUN 22 mg/dL (9-20) H 02/17/18 13:59 Creatinine 1.02 mg/dL (0.66-1.25) 02/17/18 13:59 Est GFR (CKD-EPI)AfAm >90 (>60 ml/min/1.73 sqM) 02/17/18 13:59 Est GFR (CKD-EPI)NonAf 86 (>60 ml/min/1.73 sqM) 02/17/18 13:59 Glucose 154 mg/dL (74-99) H 02/17/18 13:59 POC Glucose (mg/dL) 160 mg/dL (75-99) H 02/17/18 12:19 POC Glu [employer] Clerk ID Sanna Gillespie 02/17/18 12:19 Lactic Ac Sepsis Rflx Y 02/13/18 15:21 Plasma Lactic Acid Barrie 1.8 mmol/L (0.7-2.0) 02/13/18 19:40 Calcium 9.0 mg/dL (8.4-10.2) 02/17/18 13:59 Ionized Calcium Hany 5.1 mg/dL (4.5-5.3) 02/17/18 13:59 Phosphorus 3.1 mg/dL (2.5-4.5) 02/17/18 13:59 Magnesium 1.6 mg/dL (1.6-2.3) 02/17/18 13:59 Iron 24 ug/dL (65-175) L 02/14/18 11:50 TIBC 363 ug/dL (228-460) 02/14/18 11:50 Iron Saturation 6.61 (15.00-50.00) L 02/14/18 11:50 Ferritin 14.7 ng/mL (22.0-322.0) L 02/14/18 11:50 Total Bilirubin 0.3 mg/dL (0.2-1.3) 02/13/18 14:21 AST 28 U/L (17-59) 02/13/18 14:21 ALT 41 U/L (21-72) 02/13/18 14:21 Alkaline Phosphatase 127 U/L (38-126) H 02/13/18 14:21 Total Creatine Kinase <20 U/L (55-170) L 02/13/18 14:21 CK-MB (CK-2) 1.1 ng/mL (0.0-2.4) 02/13/18 14:21 CK-MB (CK-2) Rel Index 02/13/18 14:21 Troponin I 0.016 ng/mL (0.000-0.034) 02/13/18 14:21 Total Protein 6.5 g/dL (6.3-8.2) 02/13/18 14:21 Albumin 3.0 g/dL (3.5-5.0) L 02/14/18 11:42 Triglycerides 153 mg/dL (<150) H 02/14/18 11:42 Amylase 112 U/L (30-110) H 02/14/18 06:15 Lipase 123 U/L (23-300) 02/14/18 06:15 TSH 1.320 mIU/L (0.465-4.680) 02/13/18 14:21 Free T4 1.09 ng/dL (0.78-2.19) 02/13/18 14:21 Free T3 pg/mL 6.9 pg/ml (2.8-5.3) H 02/13/18 14:21 Urine Color Yellow 02/13/18 20:45 Urine Appearance Clear (Clear) 02/13/18 20:45 Urine pH 5.5 (5.0-8.0) 02/13/18 20:45 Ur Specific [place] 1.020 (1.001-1.035) 02/13/18 20:45 Urine Protein 1+ (Negative) H 02/13/18 20:45 Urine Glucose (UA) Negative (Negative) 02/13/18 20:45 Urine Ketones Negative (Negative) 02/13/18 20:45 Urine Blood Negative (Negative) 02/13/18 20:45 Urine Nitrite Negative (Negative) 02/13/18 20:45 Urine Bilirubin Negative (Negative) 02/13/18 20:45 Urine Urobilinogen <2.0 mg/dL (<2.0) 02/13/18 20:45 Ur Leukocyte Esterase Negative (Negative) 02/13/18 20:45 Urine RBC 1 /hpf (0-5) 02/13/18 20:45 Urine WBC 2 /hpf (0-5) 02/13/18 20:45 Ur Squamous Epith Cells <1 /hpf (0-4) 02/13/18 20:45 Urine Bacteria Rare /hpf (None) H 02/13/18 20:45 Hyaline Casts 8 /lpf (0-2) H 02/13/18 20:45 Granular Casts 5 /lpf (0) 02/13/18 20:45 Urine Mucus Occasional /hpf (None) H 02/13/18 20:45 Vancomycin Trough 18.3 ug/mL 02/13/18 14:40 Random Vancomycin 11.0 ug/mL 02/14/18 06:15 Assessment and Plan (1) Dehydration Status: Acute Code(s): E86.0 - DEHYDRATION SNOMED Code(s): 92485489 (2) Acute renal failure Status: Acute Code(s): N17.9 - ACUTE KIDNEY FAILURE, UNSPECIFIED SNOMED Code (s): 81211040 (3) Encounter for aftercare following multiple organ transplant Status: Acute Code(s): Z48.288 - ENCOUNTER FOR AFTERCARE FOLLOWING MULTIPLE ORGAN TRANSPLANT SNOMED Code(s): 419540175 (4) MRSA (methicillin resistant Staphylococcus aureus) infection Narrative/Plan: 47-year-old male who has a known history of a multiorgan transplant was recently been cared for at the [facility] and several events with several hospitalizations regarding his increasing difficulties intra- abdominally. He has developed wqkea-[id number] disease to the small bowel transplant and has now required ileostomy placement and exporter laparotomies with lysis of adhesions. 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 He has a ostomy pouch in place together the drainage. Is currently taking only medications by mouth he is not eating, utilizing TPN for his nutrition to try to rest his gut. Sandostatin has recently been added to try to improve his fistula formation. He follows up with the [facility] on February 24. There is evidence of acute renal failure occurring at this time and constantly vancomycin therapy is stopped. We'll check levels in the morning. If they become subtherapeutic we'll then initiate daptomycin therapy for the treatment of MRSA infection of the abdominal area. He was on micafungin, this is transitioned to Eraxis due to our formulary issues. Wound care will be with the ostomy pouch which the can bring from home to be reapplied to the abdominal wall. We'll give him further fluids over his creatinine will rapidly improve and then we can work with the transplant center for his transition to home potentially transitioning vancomycin to daptomycin for his home therapy. 02/14/2018 patient is feeling better today. TPN is started. First dose of Sandostatin as been given. The abdominal wall fistula seems to be having at least decrease drainage. No new pain. Antibiotic therapy will not be with daptomycin given at the Vanco trough was 11. Continue the Eraxis for antifungal therapy. We'll need input from the transplant center the time of discharge to ensure they agree with the course of antibiotic therapy antimicrobial therapy at discharge. 02/17/2018 Has now had marked improvement of his status. No fevers or chills. Abdominal pain is improved. TPN has been restarted and is tolerating that well without difficulties. Sandostatin has been started amount of drainage out of the abdominal fistula seems to be improved. The case is discussed with the hospitalist. He desire to stop the Sandostatin. I suggest that the family calls the [facility] after his discharge to confirm medications associated with his TPN. Antibiotic therapy is with [place] and will be with daptomycin until he is seen at the [facility] and continue his antifungal which is Mycamune at home. He can be followed up in infectious disease clinic locally if directed per the [facility]. Status: Acute Code(s): A49.02 - METHICILLIN RESIS STAPH INFECTION, UNSP SITE SNOMED Code(s): 621267401
--- NOTE | 2018-02-18 00:45 | DS ---
DISCHARGE SUMMARY DATE OF ADMISSION: 02/13/2018. DATE OF DISCHARGE: February 17, 2018. FINAL DIAGNOSES: 1. Acute renal failure likely prerenal from high-output abdominal fistula and ileostomy. 2. Chronic obstructive pulmonary disease in an ex-smoker. 3. Four organ transplant 2002 including small-bowel, pancreas, duodenum and stomach being followed at [facility]. 4. Multiple abdominal fistulas, now with a drainage bag from [facility]. 5. Gastroesophageal reflux disease. 6. Chronic gastroparesis. 7. Chronic mesenteric vein thrombosis for which patient is on anticoagulation. 8. Immunosuppressed state. 9. Severe electrolyte abnormalities including hypocalcemia, hypomagnesemia. 10.TPN feeding through the [place] catheter. CONSULTATION: and Dr. Schneider from Nephrology, Dr. Mortensen from General surgery. Dr. Suárez from Infectious Disease. HOSPITAL COURSE: A 47-year-old patient, rather extensive medical history. Patient had multivessel transplant in [place] in 2002 that included small bowel, pancreas, duodenum and stomach. Subsequently patient had a mesenteric vein graft thrombosis for which patient has been on anticoagulation. Subsequently, the patient presented to the ER on January 22, 2018 with abdomen that was spurting food. The patient was transferred to [facility]. The patient had further surgery done and separate bag placed in the fistula. The patient came home from [facility] about 2-3 days ago. The patient was getting dehydrated and found to be in renal failure in the ER. Creatinine was up to 1.77, by the time of discharge did come to 1.02. The patient had been on octreotide that was stopped 48 hours before and patient did well off the same. The patient also given well 24 hours off the fluids to which she did well. Today the patient's discharge was coordinated. It was discussed with Dr. Suárez, the case management associate, Naresh, and the patient. Discharge was coordinated. I also spoke to transplant team, according to Dr. Nair yesterday. EXAMINATION TODAY: Temperature 97.9, pulse 71, respiratory 18, blood pressure 120/59, pulse ox 92 percent on room air. Abdomen: Ileostomy bag, the bag over the fistula and he has got a Row[place] catheter. Lungs decreased breath sounds. LABS: Potassium 3.8, BUN 22, creatinine 1.08. Care was discussed in detail with the patient. Questions were answered. Home infusion also being coordinated. Discussion and discharge planning more than 35 minutes. The patient does not have any chronic kidney disease, all felt to be acute. DISCHARGE MEDICATIONS: 1. Calcium citrate, vitamin D3 one tablet p.o. b.i.d. 2. Ferrous gluconate 325 p.o. b.i.d. 3. Men's multivitamin 1 tablet p.o. daily. 4. Zoloft 100 mg p.o. daily. 5. Prograf 1 mg p.o. b.i.d. 6. Bactrim DS half a tablet Saturday, Saturday and Saturday. 7. ProAir 2 puffs q.6h p.r.n. 8. Trazodone 100 mg p.o. q.h.s. 9. Carafate 1 g p.o. b.i.d. 10.Symbicort 160/4.5, 2 puffs b.i.d. 11.Methadone 10 mg in the morning. 12.Seroquel 25 mg b.i.d. 13.Flecainide 150 mg q.12h. 14.Neurontin 400 mg p.o. t.i.d. 15.Cortef 30 mg p.o. b.i.d. 16.Nystatin 131231 units p.o. q.i.d. 17.Klonopin 0.25 p.o. q.h.s. 18.Mead 10 1 tablet q.6h p.r.n. 19.Tums 500 mg p.o. q.i.d. 20.Vitamin D3 5000 units p.o. Saturday, Saturday and Saturday. 21.Atrovent HFA 2 puffs q.i.d. p.r.n. 22.Methadone 5 mg p.o. q.h.s. 23.Mycamine 100 mg IV daily. 24.Arixtra 5 mg subcu daily. 25.Daptomycin 100 mg IV daily for 14 more days. The patient has got a [facility] followup on February 24. Follow up with Dr. Zhao in 3 days. Labs, CMP, CBC, magnesium weekly. Discussion and discharge planning more than [address] Zhao. MMODL / IJN: [id number] /
== END 2018-02-17 18:00 | disposition home health service (06) | DRG 682 ==
LOC: EC 13:57 → 4MS4W 16:04 → 3NMEDONC 16:14 → OBSVTOIN 02-14 11:45 → 3NMEDONC 02-17 10:36
PROVIDERS: ADMIT Hospitalist; ATTEND Hospitalist
PROC: 3E0436Z Introduction of Nutritional Substance into Central Vein, Percutaneous Approach (ICD-10-PCS; principal; 2018-02-14)
DX: N17.9 Acute kidney failure, unspecified (principal); I81 Portal vein thrombosis; E27.40 Unspecified adrenocortical insufficiency; E87.2 Acidosis; K63.2 Fistula of intestine; Z94.82 Intestine transplant status; Z94.83 Pancreas transplant status; N18.3 Chronic kidney disease, stage 3 (moderate); I95.9 Hypotension, unspecified; E83.42 Hypomagnesemia; E83.51 Hypocalcemia; I48.0 Paroxysmal atrial fibrillation; K31.84 Gastroparesis; E86.0 Dehydration; D50.9 Iron deficiency anemia, unspecified; E87.6 Hypokalemia; G47.33 Obstructive sleep apnea (adult) (pediatric); J44.9 Chronic obstructive pulmonary disease, unspecified; K21.9 Gastro-esophageal reflux disease without esophagitis; F32.9 Major depressive disorder, single episode, unspecified; F41.9 Anxiety disorder, unspecified; G89.29 Other chronic pain; M54.9 Dorsalgia, unspecified; E86.9 Volume depletion, unspecified; Z79.01 Long term (current) use of anticoagulants; Z79.51 Long term (current) use of inhaled steroids; Z79.899 Other long term (current) drug therapy; Z86.14 Personal history of Methicillin resistant Staphylococcus aureus infection; Z93.2 Ileostomy status; Z88.6 Allergy status to analgesic agent; Z88.5 Allergy status to narcotic agent; Z88.8 Allergy status to other drugs, medicaments and biological substances; Z86.718 Personal history of other venous thrombosis and embolism; Z87.01 Personal history of pneumonia (recurrent); Z87.891 Personal history of nicotine dependence; Z94.89 Other transplanted organ and tissue status
CPT/HCPCS: 36415; 71046; 80048; 80053; 80202; 81001; 82040; 82150; 82330; 82550; 82553; 82728; 83540; 83550; 83605; 83690; 83735; 84100; 84439; 84443; 84478; 84481; 84484; 85025; 85610; 85730; 93005; 96360; 96361; 99285

== ENCOUNTER → 2018-03-19 | Outpatient (CLI) | payer MEDICARE, BC ==
[2018-03-19 15:15] LABS: Anisocytosis Slight; Basophils % (A) 0 %; Eosinophils % (A) 0 %; HCT 30.2 % (39.0-53.0); HGB 8.8 gm/dL (13.0-17.5); Hypochromasia Marked; Lymphocytes # (A) 1.2 k/uL (1.0-4.8); Lymphocytes % (A) 9 %; MCH 24.2 pg (25.0-35.0); MCHC 29.2 g/dL (31.0-37.0); MCV 82.9 fL (80.0-100.0); Mean Platelet Volume 11.9; Microcytosis Slight; Monocytes # (A) 0.8 k/uL (0-1.0); Monocytes % (A) 6 %; Neutrophils # (A) 11.4 k/uL (1.3-7.7); Neutrophils % (A) 83 %; Platelet Count 323 k/uL (150-450); Poikilocytosis Slight; RBC 3.64 m/uL (4.30-5.90); RDW 18.1 % (11.5-15.5); WBC 13.7 k/uL (3.8-10.6)
[2018-03-19 16:28] LABS: Hypochromasia (M) Present; Poikilocytosis (M) Present
[2018-03-19 16:29] LABS: Large Platelets Present
[2018-03-19 18:26] LABS: Albumin 3.7 g/dL (3.80-4.90); Albumin/Globulin Ratio 2.06 (1.20-2.10); Anion Gap 7.8 mmol/L (4.00-12.00); Calcium 8.9 mg/dL (8.7-10.3); Carbon Dioxide 27.2 mmol/L (21.6-31.8); Globulin 1.8 g/dL (2.1-3.7); Magnesium 1.6 mg/dL (1.5-2.4); Phosphorus 3.5 mg/dL (2.4-5.1); Potassium 4.3 mmol/L (3.5-5.5); Total Bilirubin 0.2 mg/dL (0.3-1.2); Total Protein 5.5 g/dL (6.2-8.2)
[2018-03-20 14:12] LABS: Tacrolimus (FK506) 5.1 ng/mL (5.0-20.0)
== END ==
LOC: LABWHC1 13:18
PROVIDERS: ATTEND Physician Assistant
DX: D89.9 Disorder involving the immune mechanism, unspecified (principal); Z94.82 Intestine transplant status; Z51.81 Encounter for therapeutic drug level monitoring; Z79.01 Long term (current) use of anticoagulants
CPT/HCPCS: 36415; 80053; 80197; 83735; 84100; 85025; 87497

== ENCOUNTER → 2018-03-26 | Outpatient (CLI) | payer MEDICARE, BC | END | disposition home or self-care (01) | LOC: LABWHC1 12:17 | PROVIDERS: ATTEND Nurse Practitioner Adult Health | DX: D64.9 Anemia, unspecified (principal); Z94.82 Intestine transplant status | CPT/HCPCS: 86850; 86900; 86901; 86920 ==

== ENCOUNTER → 2018-05-16 | Outpatient (CLI) | payer MEDICARE, BC ==
[2018-05-16 13:58] LABS: Anisocytosis Slight; Basophils % (A) 0 %; Eosinophils % (A) 0 %; HCT 39.2 % (39.0-53.0); HGB 11.8 gm/dL (13.0-17.5); Hypochromasia Marked; Lymphocytes # (A) 1.5 k/uL (1.0-4.8); Lymphocytes % (A) 11 %; MCH 28.3 pg (25.0-35.0); MCV 94.4 fL (80.0-100.0); Mean Platelet Volume 14.2; Monocytes # (A) 0.8 k/uL (0-1.0); Monocytes % (A) 6 %; Neutrophils # (A) 10.6 k/uL (1.3-7.7); Neutrophils % (A) 81 %; Platelet Count 185 k/uL (150-450); RBC 4.16 m/uL (4.30-5.90); RDW 18.6 % (11.5-15.5); WBC 13.2 k/uL (3.8-10.6)
[2018-05-16 14:43] LABS: Ovalocytes Present; Polychromasia Present; Target Cells Present
[2018-05-16 14:45] LABS: Large Platelets Present
[2018-05-16 14:46] LABS: RBC Fragments Present
[2018-05-16 18:59] LABS: ALT 49 U/L (10-49); AST 24 U/L (14-35); Albumin/Globulin Ratio 1.74 (1.20-2.10); Alkaline Phosphatase 149 U/L (41-126); Calcium 9.1 mg/dL (8.7-10.3); Carbon Dioxide 25.3 mmol/L (21.6-31.8); Chloride 101 mmol/L (96-109); Creatine Kinase <20 U/L (35-257); Globulin 2.3 g/dL (1.6-3.3); Glucose 154 mg/dL (70-110); Magnesium 2.2 mg/dL (1.5-2.4); Potassium 3.6 mmol/L (3.5-5.5); Sodium 142 mmol/L (135-145); Total Bilirubin 0.2 mg/dL (0.3-1.2); Total Protein 6.3 g/dL (6.2-8.2)
== END ==
LOC: LABWHC1 13:20
PROVIDERS: ATTEND Transplant Surgery
DX: Z51.81 Encounter for therapeutic drug level monitoring (principal); Z79.01 Long term (current) use of anticoagulants; Z94.82 Intestine transplant status
CPT/HCPCS: 36415; 80053; 80197; 82550; 83735; 84100; 85025

== ENCOUNTER 2018-05-17 03:55 | Inpatient (IN) | payer MEDICARE, BC ==
[2018-05-17 04:50] LABS: Anisocytosis Slight; Basophils % (A) 0 %; Eosinophils # (A) 0.1 k/uL (0-0.7); Eosinophils % (A) 0 %; HCT 36.1 % (39.0-53.0); HGB 10.7 gm/dL (13.0-17.5); Hypochromasia Marked; Lymphocytes # (A) 2.4 k/uL (1.0-4.8); Lymphocytes % (A) 17 %; MCH 27.2 pg (25.0-35.0); MCHC 29.5 g/dL (31.0-37.0); Mean Platelet Volume 13.4; Monocytes # (A) 1.1 k/uL (0-1.0); Monocytes % (A) 8 %; Neutrophils % (A) 71 %; Platelet Count 173 k/uL (150-450); RBC 3.93 m/uL (4.30-5.90); RDW 18.5 % (11.5-15.5)
--- NOTE | 2018-05-17 04:58 | ED ---
Abdominal Pain HPI - General Chief Complaint: Abdominal Pain Stated Complaint: Abd Pain Time Seen by Provider: 05/17/18 04:14 Source: patient, family Mode of arrival: wheelchair Limitations: no limitations - History of Present Illness Initial Comments: This patient is 48-year-old man, status post for organ transplant, (stomach, duodenum, small intestine, pancreas) who presents with complaint of severe upper abdominal pain. He indicates the epigastric area. He states that it is just an aching pain. He states it is similar to previous episode of pancreatitis that he has had area he rates it as severe, constant, and without worsening or relieving factors. He also has had some nausea and retching, but states that he is currently on TPN so has not had any real vomiting. Patient does relate that he had been released from [facility] the past week. 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 He is scheduled to have further revision of his surgery next week. MD Complaint: abdominal pain Onset/Timin -: hour(s) Location: epigastric Radiation: none Migration to: no migration Severity: severe Quality: aching Consistency: constant Improves With: nothing Worsens With: nothing Associated Symptoms: nausea - Related Data Home Medications Medication Instructions Recorded Confirmed Ferrous Gluconate 325 mg PO BID 09/02/13 05/17/18 Sertraline [Zoloft] 100 mg PO DAILY 09/02/13 05/17/18 Tacrolimus [Prograf] 1 mg PO BID 09/02/13 05/17/18 Sulfamethoxazole/Trimethoprim 0.5 tab PO MOWEFR 08/02/16 05/17/18 [Bactrim DS 800-160 mg] Albuterol Sulfate [Proair Hfa] 2 puff INHALATION RT-Q6H PRN 12/19/16 05/17/18 traZODone HCL 100 mg PO HS 12/19/16 05/17/18 Sucralfate [Carafate] 1 gm PO BID 03/23/17 05/17/18 Budesonide/Formoterol Fumarate 2 puff INHALATION RT-BID 05/17/17 05/17/18 [Symbicort 160-4.5 Mcg Inhaler] Methadone [Dolophine] 10 mg PO QAM 05/17/17 05/17/18 QUEtiapine [SEROquel] 25 mg PO DAILY 07/23/17 05/17/18 Flecainide Acetate [Tambocor] 150 mg PO Q12H 12/12/17 05/17/18 Gabapentin [Neurontin] 400 mg PO TID 12/12/17 05/17/18 Hydrocortisone [Cortef] 30 mg PO BID 12/12/17 05/17/18 Nystatin 100,000 Unit/ml Susp 500,000 unit PO QID 12/12/17 05/17/18 [Mycostatin Oral Susp] clonazePAM [Klonopin ODT Wafer] 0.25 mg PO HS 12/12/17 05/17/18 HYDROcodone/APAP 10-325MG [Jay 1 tab PO TID PRN 01/10/18 05/17/18 10-325] Calcium Carbonate [Tums] 500 mg PO QID 01/22/18 05/17/18 Cholecalciferol [Vitamin D3] 5,000 unit PO MOWEFR 01/22/18 05/17/18 Ipratropium [place] [Atrovent Hfa] 2 puff INHALATION RT-BID PRN 01/22/18 Methadone [Dolophine] 5 mg PO HS 01/22/18 05/17/18 Fondaparinux Sodium [Arixtra] 5 mg SQ DAILY 02/13/18 05/17/18 Metoprolol Tartrate 12.5 mg PO BID 05/17/18 05/17/18 Pantoprazole [Protonix] 40 mg PO BID 05/17/18 05/17/18 Sertraline [Zoloft] 50 mg PO HS 05/17/18 05/17/18 Allergies Allergy/AdvReac Type Severity Reaction Status Date / Time aspirin Allergy GI Verified 05/17/18 07:36 BLEEDING , ABDOMINAL PAIN heparin AdvReac abdominal Verified 05/17/18 07:36 pain , GI bleeding ketorolac tromethamine AdvReac migraines Verified 05/17/18 07:36 [From Toradol] morphine AdvReac Itching Verified 05/17/18 07:36 Review of Systems ROS Statement: Those systems with pertinent positive or pertinent negative responses have been documented in the HPI. ROS Other: All systems not noted in ROS Statement are negative. Constitutional: Denies: fever, chills, weakness Respiratory: Denies: cough, dyspnea Cardiovascular: Denies: chest pain, palpitations, syncope Gastrointestinal: Reports: abdominal pain, nausea. Denies: vomiting, diarrhea, constipation, melena, hematochezia Genitourinary: Denies: dysuria, hematuria Musculoskeletal: Denies: back pain Skin: Denies: rash Neurological: Denies: headache Past Medical History Past Medical History: Atrial Fibrillation, COPD, Deep Vein Thrombosis (DVT), GERD/Reflux, Pneumonia, Sleep Apnea/CPAP/BIPAP Additional Past Medical History / Comment(s): Pt had recent admission to [facility] with pneumonia. 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 History of Any Multi-Drug Resistant Organisms: C-DIFF, MRSA Date of last positivie culture/infection: 05/11/18 MDRO Source:: stool Past Surgical History: Bowel Resection, Cholecystectomy Additional Past Surgical History / Comment(s): multiple stomach sxMultivisceral organ transplant including bowel, pancreas, and stomach at [facility]-follows thru [facility],spleen removed left knee arthrotomy, EGD, colonoscopy, ERCP with insertion of a pancreatic duct stent- since removed . colostomy bag, and "fistulas that drain into a bag" X4 Past Anesthesia/Blood Transfusion Reactions: No Reported Reaction Additional Past Anesthesia/Blood Transfusion Reaction / Comment(s): STATES R/T TO MULTIPLE SX HE REQUIRES A LOT OF MEDICATION for anesthesia. He has had multiple blood transfusions without reaction. Past Psychological History: Anxiety, Depression Smoking Status: Current some day smoker Past Alcohol Use History: None Reported Past Drug Use History: None Reported - Past Family History Mother History Unknown: Yes Additional Family Medical History / Comment(s): pt is adopted, does not know any hx Father History Unknown: Yes Additional Family Medical History / Comment(s): pt is adopted, does not know any hx General Exam Limitations: no limitations General appearance: alert, in no apparent distress Head exam: Present: atraumatic, normocephalic Eye exam: Present: normal appearance. Absent: scleral icterus, conjunctival injection ENT exam: Present: mucous membranes dry Neck exam: Present: normal inspection Respiratory exam: Present: normal lung sounds bilaterally. Absent: respiratory distress, wheezes, rales, rhonchi, stridor, chest wall tenderness Cardiovascular Exam: Present: regular rate, normal rhythm, normal heart sounds. Absent: systolic murmur, diastolic murmur, rubs, gallop GI/Abdominal exam: Present: soft, tenderness (Epigastric), diminished bowel sounds. Absent: distended, guarding, rebound, rigid, mass Extremities exam: Present: normal inspection, normal capillary refill. Absent: pedal edema, calf tenderness Back exam: Present: normal inspection. Absent: CVA tenderness (R), CVA tenderness (L) Neurological exam: Present: alert Skin exam: Present: warm, dry, intact, normal color. Absent: rash Course Vital Signs 05/17/18 05/17/18 05/17/18 04:03 06:08 07:30 Temperature 98.3 F 98.5 F Pulse Rate 61 69 Respiratory 2 L 18 Rate Blood Pressure 124/74 138/65 143/78 O2 Sat by Pulse 98 96 97 Oximetry 05/17/18 08:00 Temperature Pulse Rate 64 Respiratory 18 Rate Blood Pressure 134/72 O2 Sat by Pulse 97 Oximetry Medical Decision Making - Medical Decision Making Patient is a 48-year-old man with abdominal pain and appears to have pancreatitis on the labs and found on the computed tomography scan of abdomen. At this point there does not appear to be new abdominal fistula or abscess. The patient is having some relief with IV analgesia. We will admit patient for further symptom control and GI rest as well as hydration. - Lab Data Result diagrams: 05/17/18 04:30 05/17/18 04:30 Lab Results 05/17/18 05/17/18 05/17/18 Range/Units 04:30 04:30 04:30 WBC 14.0 H (3.8-10.6) k/uL RBC 3.93 L (4.30-5.90) m/uL Hgb 10.7 L (13.0-17.5) gm/dL Hct 36.1 L (39.0-53.0) % MCV 92.0 (80.0-100.0) fL MCH 27.2 (25.0-35.0) pg MCHC 29.5 L (31.0-37.0) g/dL RDW 18.5 H (11.5-15.5) % Plt Count 173 (150-450) k/uL Neutrophils % 71 % Lymphocytes % 17 % Monocytes % 8 % Eosinophils % 0 % Basophils % 0 % Neutrophils # 10.0 H (1.3-7.7) k/uL Lymphocytes # 2.4 (1.0-4.8) k/uL Monocytes # 1.1 H (0-1.0) k/uL Eosinophils # 0.1 (0-0.7) k/uL Basophils # 0.0 (0-0.2) k/uL Hypochromasia Marked Anisocytosis Slight Sodium 138 (137-145) mmol/L Potassium 3.9 (3.5-5.1) mmol/L Chloride 102 (98-107) mmol/L Carbon Dioxide 28 (22-30) mmol/L Anion Gap 8 mmol/L BUN 56 H (9-20) mg/dL Creatinine 1.08 (0.66-1.25) mg/dL Est GFR (CKD-EPI)AfAm >90 (>60 ml/min/1.73 sqM) Est GFR (CKD-EPI)NonAf 80 (>60 ml/min/1.73 sqM) Glucose 62 L (74-99) mg/dL Plasma Lactic Acid Barrie 1.7 (0.7-2.0) mmol/L Calcium 8.6 (8.4-10.2) mg/dL Total Bilirubin 0.3 (0.2-1.3) mg/dL AST 27 (17-59) U/L ALT 57 (21-72) U/L Alkaline Phosphatase 123 (38-126) U/L Total Protein 6.0 L (6.3-8.2) g/dL Albumin 3.3 L (3.5-5.0) g/dL Amylase 448 H* (30-110) U/L Lipase 2276 H (23-300) U/L Disposition Clinical Impression: Abdominal pain, Pancreatitis, Enterocutaneous fistula Disposition: ADMITTED IP TO THIS [facility] Condition: Fair
[2018-05-17 05:02] LABS: ALT 57 U/L (21-72); AST 27 U/L (17-59); Albumin 3.3 g/dL (3.5-5.0); Alkaline Phosphatase 123 U/L (38-126); Anion Gap 8 mmol/L; Blood Urea Nitrogen 56 mg/dL (9-20); Calcium 8.6 mg/dL (8.4-10.2); Carbon Dioxide 28 mmol/L (22-30); Chloride 102 mmol/L (98-107); Glucose 62 mg/dL (74-99); Potassium 3.9 mmol/L (3.5-5.1); Sodium 138 mmol/L (137-145); Total Bilirubin 0.3 mg/dL (0.2-1.3)
[2018-05-17] MEDS ORDERED: HYDROmorphone 1 MG/ML 1 ML SYRINGE IVP STA ×2 (05:20→05:44)
[2018-05-17 06:09] VITALS: RESP 18
[2018-05-17 06:12] LABS: Amylase 448 U/L (30-110); Lipase 2276 U/L (23-300)
--- NOTE | 2018-05-17 07:35 | CT ---
EXAM: CT Abdomen and Pelvis Without Intravenous Contrast CLINICAL HISTORY: Bowel resection, Cholecystectomy, Mutivisceral organ transplant- Bowel, Pancreas, Stomach. Splenectomy, Colostomy, Fistulas that drain into bag x 4. TECHNIQUE: Axial computed tomography images of the abdomen and pelvis without intravenous contrast. CTDI is 8.37 mGy and DLP is 490.3. mGy-cm. This CT exam was performed using one or more of the following dose reduction techniques: automated exposure control, adjustment of the mA and/or kV according to patient size, and/or use of iterative reconstruction technique. COMPARISON: 01/22/2018. FINDINGS: Lung bases: Mild linear atelectasis and/or scarring involving the left lower lobe. ABDOMEN: Liver: No focal defect. Gallbladder and bile ducts: Unremarkable. No calcified stones. No ductal dilation. Pancreas: Peripancreatic fat stranding/inflammatory changes are seen suggesting acute pancreatitis. No ductal dilation. Spleen: Status post splenectomy. Adrenals: Unremarkable. No mass. Kidneys and ureters: Probable 9 mm cyst in the midpole the left kidney. No obstructing stones. No hydronephrosis. Stomach and bowel: Evaluation is limited without the use of oral and IV contrast. Right-sided ostomy. Patient appears to be status post partial colectomy. Retained fecal material and a segment of sigmoid colon is again seen, improved since prior study. PELVIS: Appendix: See above. Bladder: Unremarkable. No stones. Reproductive: Prostatomegaly, measuring up to 5 cm in greatest transverse dimension. ABDOMEN and PELVIS: Intraperitoneal space: Foci of air adjacent to the anterior aspect of the liver, likely represent air within small bowel loops interposed between the anterior liver and the anterior abdominal wall.. No free air. No significant fluid collection. Bones/joints: No acute fracture. No dislocation. Soft tissues: Anterior abdominal wall dehiscence with small bowel loops tethered to the anterior abdominal wall with findings suggestive of enterocutaneous fistulas. Vasculature: Postoperative changes involving the aorta. No abdominal aortic aneurysm. Lymph nodes: Mildly prominent peripancreatic lymph nodes, likely reactive. Mildly prominent retroperitoneal lymph nodes, likely reactive. IMPRESSION: 1. Anterior abdominal wall dehiscence with small bowel loops tethered to the anterior abdominal wall with findings suggestive of enterocutaneous fistulas. Correlate clinically. 2. Peripancreatic fat stranding/inflammatory changes are seen suggesting acute pancreatitis. 3. Right-sided ostomy. Correlate with patient's surgical history. 4. Postoperative changes involving the aorta. Correlate with surgical history. [employer] 05/17/18 07:04 Call Doctor Regarding Other, called on 05/17 07: 04 (-05:00)
[2018-05-17] MEDS ORDERED: NALOXONE 0.4 MG/ML 1 ML VIAL IV PRN (07:36)
[2018-05-17] MEDS ORDERED: HYDROmorphone 1 MG/ML 1 ML SYRINGE IVP PRN ×2 (07:36→09:45)
[2018-05-17] MEDS ORDERED: ONDANSETRON 4 MG/2 ML VIAL IVP PRN (07:36)
[2018-05-17] MEDS: SODIUM CHLORIDE 0.9% 1,000 ML IV SCH ×3 (08:16→22:44)
[2018-05-17 08:50] LABS: Appearance,Urine Clear (Clear); Bilirubin,Urine Negative (Negative); Blood,Urine Negative (Negative); Color,Urine Yellow; Glucose,Urine (UA) 1+ (Negative); Ketones,Urine Negative (Negative); Leukocyte Esterase,Urine Negative (Negative); Mucus,Urine Rare /hpf; Nitrite,Urine Negative (Negative); PH, Urine 5.5 (5.0-8.0); Protein,Urine 1+ (Negative); RBC,Urine <1 /hpf (0-5); Specific Gravity,Urine 1.023 (1.001-1.035); Urobilinogen,Urine <2.0 mg/dL (<2.0); WBC,Urine 1 /hpf (0-5)
[2018-05-17] MEDS ORDERED: PANTOPRAZOLE 40 MG/10 ML VIAL IV SCH (09:00)
[2018-05-17 09:08] VITALS: BMI 27.3
[2018-05-17] MEDS ORDERED: IPRATROPIUM 0.5 MG/2.5 ML NEBU INHALATION PRN (09:39)
[2018-05-17] MEDS ORDERED: ALBUTEROL NEBULIZED 2.5 MG/3 ML INHALATION PRN (09:39)
[2018-05-17] MEDS ORDERED: SERTRALINE 100 MG TAB PO SCH (09:45)
[2018-05-17] MEDS ORDERED: FONDAPARINUX 2.5 MG/0.5 ML SYRINGE SQ SCH (09:45)
[2018-05-17] MEDS ORDERED: METHADONE 10 MG TAB PO SCH ×2 (09:45→21:00)
[2018-05-17] MEDS ORDERED: METHADONE 10 MG TAB PO ONE (11:30)
[2018-05-17] MEDS ORDERED: HYDROmorphone 2 MG/ML 1 ML SYRINGE IVP PRN (11:58)
[2018-05-17] MEDS ORDERED: LORazepam 2 MG/ML INJ ONE (16:27)
[2018-05-17] MEDS ORDERED: SYMBICORT 160-4.5 MCG INHALER INHALATION SCH (20:00)
[2018-05-17] MEDS ORDERED: clonazePAM 0.5 MG TAB PO SCH (21:00)
[2018-05-17] MEDS ORDERED: SERTRALINE 50 MG TAB PO SCH (21:00)
[2018-05-17] MEDS ORDERED: SUCRALFATE 1 GM TAB PO SCH (21:00)
[2018-05-17] MEDS ORDERED: PANTOPRAZOLE 40 MG TABLET PO SCH (21:00)
[2018-05-17] MEDS ORDERED: traZODone HCL 100 MG TAB PO SCH (21:00)
[2018-05-17] MEDS: TACROLIMUS 1 MG CAP PO SCH ×2 (21:16→23:09)
[2018-05-17] MEDS: METOPROLOL TARTRATE 12.5 MG TAB PO SCH ×2 (21:16→21:31)
[2018-05-17] MEDS: GABAPENTIN 400 MG CAP PO SCH ×3 (21:16→22:44)
[2018-05-17] MEDS: HYDROCORTISONE 10 MG TAB PO SCH ×2 (21:16→21:31)
[2018-05-17] MEDS: FERROUS SULFATE 325 MG TAB PO SCH ×2 (21:17→21:19)
[2018-05-17] MEDS: FLECAINIDE 50 MG TAB PO SCH ×2 (21:17→21:31)
[2018-05-17] MEDS: CALCIUM CARBONATE 500 MG CHEWABLE PO SCH ×3 (21:18→22:40)
[2018-05-17] MEDS: NYSTATIN 100000 UNIT/ML PO SCH ×3 (21:18→22:40)
[2018-05-17] MEDS: [UNRECOGNIZED DRUG - OTHER] PO SCH ×3 (21:18→22:40)
[2018-05-17] MEDS: HYDROmorphone 2 MG/ML 1 ML SYRINGE IVP PRN (21:33)
[2018-05-17] MEDS ORDERED: LORazepam 2 MG/ML INJ IV PRN (21:34)
[2018-05-17 23:31] VITALS: BP 104/62; PULSE 79; TEMP 98
[2018-05-18] MEDS ORDERED: TACROLIMUS 1 MG CAP PO ONE
[2018-05-18] MEDS: HYDROmorphone 2 MG/ML 1 ML SYRINGE IVP PRN (00:24)
[2018-05-18] MEDS ORDERED: HYDROmorphone 2 MG/ML 1 ML SYRINGE IVP STA (01:08)
--- NOTE | 2018-05-18 03:47 | HP ---
HISTORY AND PHYSICAL DATE OF ADMISSION: 05/17/2018 DATE OF SERVICE: 05/17/2018 PRESENTING COMPLAINT: Increasing abdominal pain. HISTORY OF PRESENTING COMPLAINT: This is a 48-year-old patient, well known to me from prior visits. His family doctor is Dr. Zhao. The patient had a multivisceral transplant in [place] that included mesenteric vein graft followed by mesenteric graft thrombosis and some subsequent gastroparesis. The patient has been on anticoagulation. The patient also had an intestinal tract obstruction from congenital defect. The patient also has got adrenal insufficiency, chronic anemia and also had a 4-organ transplant in 2002 including small-bowel, pancreas, duodenum and stomach in [place]. The patient also had a valvular cardiac surgery done. The patient in the past has had bowel dehiscence and abdomen had to be opened up and he was having dressing changes. The patient also back in January of last year was found to have fistulas in the abdomen and the food that he was eating was pouring out. The patient was airlifted and moved to [facility]. The patient subsequently had surgery done there, has a drainage bag with a fistula and also has a separate ileostomy bag. The patient was just discharged from [facility] a week ago where he was there present for aspiration pneumonia and also had a bag placed over his fistula. The patient gets TPN at all times and is pretty much only allowed some ice chips by mouth. The patient last night presented with increasing severe abdominal pain, now found to have acute pancreatitis, admitted for the same from the ER. some nausea, no vomiting. No fever. No chills. When I saw the patient this morning, patient's mother is present. Hospital computer system had been down since morning limiting some of the access to information. REVIEW OF SYSTEMS: CONSTITUTIONAL: Tired. HEENT: None. RESPIRATORY: None. CARDIOVASCULAR: None. GASTROINTESTINAL: As above. GENITOURINARY: None. MUSCULOSKELETAL: None. DERMATOLOGICAL: Chronic skin changes HEMATOLOGIC: None. LYMPHATIC: None. PSYCHIATRY: Anxiety. NEUROLOGICAL: Numbness and tingling. PAST MEDICAL HISTORY: Atrial fibrillation, COPD, GERD, congenital defect of intestinal tract obstruction including multi-vessel organ transplant including small bowel, pancreas, duodenum and stomach in [place] in 2002 with enteric vein graft thrombosis, gastritis, gastroparesis, adrenal insufficiency, chronic anemia, left knee surgical repair after a barbwire fence incident, heart surgery for a valve. SOCIAL HISTORY: Patient lives with significant other. Has smoked for many years up until recently. Quit drinking alcohol in 2016. FAMILY HISTORY: Patient is adopted. HOME MEDICATIONS: 1. Prograf 1 mg p.o. b.i.d. 2. Trazodone 100 mg p.o. q.h.s. 3. Bactrim DS half a tab p.o. Saturday, Saturday and Saturday. 4. Symbicort 160/4.5, 2 puffs b.i.d. 5. Zoloft 50 mg q.h.s., 100 mg a day. 6. Seroquel 25 mg a day. 7. Protonix 40 mg b.i.d. 8. Mycostatin 1000 units p.o. q.i.d. 9. ProAir 2 puffs q.6h p.r.n. 10.Metoprolol 12.5 p.o. b.i.d. 11.Methadone 5 mg q.h.s., 10 mg in the morning. 12.Hydrocortisone 30 mg p.o. b.i.d. 13.Wells 10, 1 tablet p.o. t.i.d. p.r.n. 14.Klonopin 0.25 p.o. q.h.s. 15.Carafate 1 g p.o. b.i.d. 16.Neurontin 400 mg p.o. t.i.d. 17.Arixtra 5 mg subcu daily. 18.Tambocor 50 mg q.12. 19.Iron 325 p.o. b.i.d. 20.Vitamin D3 5000 units p.o. Saturday, Saturday, Saturday. 21.Atrovent HFA 2 puffs b.i.d. p.r.n. 22.Tums 500 mg p.o. q.i.d. ALLERGIES: ASPIRIN, HEPARIN, TORADOL, MORPHINE. PHYSICAL EXAMINATION: Vital signs on presentation, temperature 98.3 pulse 61, respiration 18, blood pressure 130/65, pulse ox 96% on room air. GENERAL APPEARANCE: Uncomfortable, lying in bed. EYES: Pupils equal. Conjunctivae normal. HEENT: External appearance of ears and nose normal. Oral cavity normal. NECK: JVD not raised. Mass not palpable. Respiratory effort normal. LUNGS: Slightly decreased breath sounds. CARDIOVASCULAR: 1st and 2nd sounds normal. No edema. ABDOMEN: Multiple scars. Has a bag over the fistula site and also has got ileostomy. Liver and spleen not palpable. Tenderness. No guarding or rigidity. LYMPHATIC: No lymph node in neck or axillae. PSYCHIATRY: Alert and oriented x3. Mood and affect, the patient is anxious, uncomfortable. NEUROLOGICAL: Pupils equal. Cranial nerves grossly intact. Power and sensation grossly intact. INVESTIGATIONS: White count 14, hemoglobin 10.7, platelets 173, potassium 3.9, BUN 56, creatinine 1.08. Amylase 448, lipase 2276. ASSESSMENT: 1. Acute severe pancreatitis. 2. Chronic obstructive pulmonary disease in an ex-smoker. 3. Four organ transplant in 2002 including small-bowel, pancreas, duodenum and stomach, being followed by [facility]. 4. Multiple abdominal fistula, has got a drainage bag. 5. Gastroesophageal reflux disease. 6. Chronic gastroparesis. 7. Chronic mesenteric vein thrombosis for which patient is on anticoagulation. 8. Immunosuppressed state. 9. Chronic kidney disease stage 3. PLAN: Patient's home medications will be resumed. IV pain medication Dilaudid was started. Methadone was continued. The patient remained on ice chips. TPN is to be continued. Care was discussed with the mother at the bedside. The patient wanted more pain medicines. I did tell him he is already on methadone and did not want to give him too much Dilaudid. He is already on 1.1 mg q3, will increase it to 1.5. Also, then I talked to the physician syrup mixer assistant, Ilana, from [facility] who is on the team of the transplant physician, Dr. Mack, whose telephone number is [phone] and Ilana's telephone number on which I spoke to her was [phone]. Based on the picture she informed me that she thinks patient may be having a pancreatic rejection. Did give the patient 2 g of IV Solu-Medrol, 5 mg of tacrolimus that was late afternoon and another 12 mg at midnight. Will draw levels tomorrow morning and give the patient 5 mg tacrolimus twice a day depending on further picture. Also, arrangements will be made to get the patient to [facility] and I spoke to the case management associate in charge to start coordinating the same. This was conveyed to the patient. MMODL / IJN: [id number] /
[2018-05-18] MEDS ORDERED: TACROLIMUS 1 MG CAP PO SCH (09:00)
[2018-05-18] MEDS ORDERED: QUEtiapine 25 MG TAB PO SCH (09:00)
--- NOTE | 2018-05-19 00:43 | DS ---
DISCHARGE SUMMARY DATE OF SERVICE: 05/17/2018. DATE OF DISCHARGE/TRANSFER: 05/18/2018. FINAL DIAGNOSES: 1. 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 2. Chronic obstructive pulmonary disease. 3. Four organ transplant in 2002 including small-bowel, pancreas, duodenum and stomach. 4. Multiple abdominal fistulae. 5. Gastroesophageal reflux disease. 6. Chronic gastroparesis. 7. Chronic mesenteric vein thrombosis, patient is on anticoagulation. 8. Immunosuppressed state. 9. Chronic kidney disease stage III. HOSPITAL COURSE: Please refer to my H and P from yesterday for more details. Patient presented with increasing abdominal pain, acute pancreatitis. I spoke to the transplant team, they think this is a pancreatic rejection. Arrangements are being made for patient to be transferred. The patient was given an extra dose of Cellcept and high dose of steroids. Arrangements were made for patient to be transferred. On examination, abdomen tender. Ileostomy and drainage plug in place. Psych AO x3. DISPOSITION: [facility] under care of the transplant team. Accepting physician is Dr. Mack, whose telephone number is [phone]. No change in medications. MMODL / IJN: [id number] /
[2018-05-19] MEDS ORDERED: SULFAMETHOX-TMP 400-80MG 1 EACH TAB PO SCH (09:00)
[2018-05-19] MEDS ORDERED: CHOLECALCIFEROL 1,000 UNIT TAB PO SCH (12:00)
== END 2018-05-18 01:15 | disposition short-term general hospital (02) | DRG 438 ==
LOC: EC 03:55 → 4SSUR 07:37
PROVIDERS: ADMIT Hospitalist; ATTEND Hospitalist
DX: K85.90 Acute pancreatitis without necrosis or infection, unspecified (principal); I81 Portal vein thrombosis; E27.40 Unspecified adrenocortical insufficiency; K63.2 Fistula of intestine; Z94.82 Intestine transplant status; Z94.83 Pancreas transplant status; T86.890 Other transplanted tissue rejection; D64.9 Anemia, unspecified; F17.200 Nicotine dependence, unspecified, uncomplicated; G47.33 Obstructive sleep apnea (adult) (pediatric); I48.0 Paroxysmal atrial fibrillation; J44.9 Chronic obstructive pulmonary disease, unspecified; K21.9 Gastro-esophageal reflux disease without esophagitis; K31.84 Gastroparesis; N18.3 Chronic kidney disease, stage 3 (moderate); Z79.01 Long term (current) use of anticoagulants; Z79.51 Long term (current) use of inhaled steroids; Z93.3 Colostomy status; Z94.89 Other transplanted organ and tissue status; Z79.899 Other long term (current) drug therapy; Z88.6 Allergy status to analgesic agent; Z88.5 Allergy status to narcotic agent; Z88.8 Allergy status to other drugs, medicaments and biological substances; Z90.49 Acquired absence of other specified parts of digestive tract
CPT/HCPCS: 36415; 74176; 80053; 81001; 82150; 83605; 83690; 85025; 96374; 96376; 99285

== ENCOUNTER 2018-06-18 03:23 | Inpatient (IN) | payer MEDICARE, BC ==
[2018-06-18] MEDS ORDERED: SODIUM CHLORIDE 0.9% 1,000 ML IV STA (03:43)
[2018-06-18] MEDS ORDERED: ONDANSETRON 4 MG/2 ML VIAL IVP STA (03:43)
--- NOTE | 2018-06-18 03:51 | ED ---
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 Patient has had multiple complications including fistula formation, he also has an ostomy. Patient is currently on TPN and is planning for fistula surgery with [facility]. Patient reports that recently he has been having frequent bouts of pancreatitis. Most recent bout was May 17 for which she was admitted and treated. Patient reports that today's had burning epigastric abdominal pain identical in nature to previous episodes of pancreatitis. She his status post cholecystectomy. The suspect his pancreatitis is due to his transplant status. - Related Data Home Medications Medication Instructions Recorded Confirmed RX: Ferrous Gluconate 325 mg PO BID 09/02/13 05/17/18 RX: Sertraline [Zoloft] 100 mg PO DAILY 09/02/13 05/17/18 RX: Tacrolimus [Prograf] 1 mg PO BID 09/02/13 05/17/18 RX: Sulfamethoxazole/Trimethoprim 0.5 tab PO MOWEFR 08/02/16 05/17/18 [Bactrim DS 800-160 mg] RX: Albuterol Sulfate [Proair Hfa] 2 puff INHALATION RT-Q6H PRN 12/19/16 RX: traZODone HCL 100 mg PO HS 12/19/16 05/17/18 RX: Sucralfate [Carafate] 1 gm PO BID 03/23/17 05/17/18 RX: Budesonide/Formoterol Fumarate 2 puff INHALATION RT-BID 05/17/17 05/17/18 [Symbicort 160-4.5 Mcg Inhaler] RX: Methadone [Dolophine] 10 mg PO QAM 05/17/17 05/17/18 RX: QUEtiapine [SEROquel] 25 mg PO DAILY 07/23/17 05/17/18 RX: Flecainide Acetate [Tambocor] 150 mg PO Q12H 12/12/17 05/17/18 RX: Gabapentin [Neurontin] 400 mg PO TID 12/12/17 05/17/18 RX: Hydrocortisone [Cortef] 30 mg PO BID 12/12/17 05/17/18 RX: Nystatin 100,000 Unit/ml Susp 500,000 unit PO QID 12/12/17 05/17/18 [Mycostatin Oral Susp] RX: clonazePAM [Klonopin ODT Wafer] 0.25 mg PO HS 12/12/17 05/17/18 RX: HYDROcodone/APAP 10-325MG 1 tab PO TID PRN 01/10/18 05/17/18 [[place] 10-325] RX: Calcium Carbonate [Tums] 500 mg PO QID 01/22/18 05/17/18 RX: Cholecalciferol [Vitamin D3] 5,000 unit PO MOWEFR 01/22/18 05/17/18 RX: Ipratropium [place] [Atrovent 2 puff INHALATION RT-BID PRN 01/22/18 05/17/18 Hfa] RX: Methadone [Dolophine] 5 mg PO HS 01/22/18 05/17/18 RX: Fondaparinux Sodium [Arixtra] 5 mg SQ DAILY 02/13/18 05/17/18 Pantoprazole [Protonix] 40 mg PO BID 05/17/18 05/17/18 RX: Metoprolol Tartrate 12.5 mg PO BID 05/17/18 05/17/18 Sertraline [Zoloft] 50 mg PO HS 05/17/18 05/17/18 Allergies Allergy/AdvReac Type Severity Reaction Status Date / Time aspirin Allergy GI Verified 06/18/18 03:37 BLEEDING , ABDOMINAL PAIN heparin AdvReac abdominal Verified 06/18/18 03:37 pain , GI bleeding ketorolac tromethamine AdvReac migraines Verified 06/18/18 03:37 [From Toradol] morphine AdvReac Itching Verified 06/18/18 03:37 Review of Systems ROS Statement: Those systems with pertinent positive or pertinent negative responses have been documented in the HPI. ROS Other: All systems not noted in ROS Statement are negative. 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, chronic anemia, chronic back pain, paroxysmal atrial fibrillation, acid reflux, obstructive sleep apnea with bipap, previous hospitalization for GI bleeding, gastroparesis History of Any Multi-Drug Resistant Organisms: C-DIFF, MRSA Date of last positivie culture/infection: 05/11/18 MDRO Source:: stool Past Surgical History: Bowel Resection, Cholecystectomy Additional Past Surgical History / Comment(s): multiple stomach, Multivisceral organ transplant including bowel, pancreas, and stomach at [facility]-follows thru [facility],spleen removed, left knee arthrotomy, EGD, colonoscopy, ERCP with insertion of a pancreatic duct stent- since removed . ileostomy in october 2017, dehised x 2, repair of fistula, second fistula appeared may 01, 2018, pt currently has ostomy bag in which fistula drained into , colonized c-diff, MRSA in sputum a year ago Past Anesthesia/Blood Transfusion Reactions: No Reported Reaction Additional Past Anesthesia/Blood Transfusion Reaction / Comment(s): STATES R/T TO MULTIPLE SX HE REQUIRES A LOT OF MEDICATION for anesthesia. He has had multiple blood transfusions without reaction. Past Psychological History: Anxiety, Depression Smoking Status: Light tobacco smoker Past Alcohol Use History: Occasional Past Drug Use History: None Reported - Past Family History Mother History Unknown: Yes Additional Family Medical History / Comment(s): pt is adopted, does not know any hx Father History Unknown: Yes Additional Family Medical History / Comment(s): pt is adopted, does not know any hx General Exam - General Exam Comments Initial Comments: Physical Exam GENERAL: Chronically ill-appearing, appears uncomfortable HENT: Normocephalic, Atraumatic. EYES: PERRL, EOMI PULMONARY: Unlabored respirations. No audible rales rhonchi or wheezing was noted. CARDIOVASCULAR: Tachycardic, regular ABDOMEN: Soft, tenderness to palpation in the epigastrium Well-healed surgical scars Fissula to the abdominal wall with a ostomy bag in place psychosis straining Right lower quadrant ileostomy SKIN: Skin is clear with no lesions or rashes and otherwise unremarkable. : Deferred NEUROLOGIC: Patient is alert and oriented x3. Moving all extremities spontaneously MUSCULOSKELETAL: Normal extremities with adequate strength and full range of motion. No lower extremity swelling or edema. No calf tenderness. PSYCHIATRIC: Normal psychiatric evaluation. Limitations: no limitations Limitations: no limitations Course Vital Signs 06/18/18 03:34 Temperature 97.9 F Pulse Rate 100 Respiratory 20 Rate Blood Pressure 114/71 O2 Sat by Pulse 100 Oximetry Medical Decision Making - Medical Decision Making She was seen and evaluated history was obtained from the patient review of medical records Patient is high risk for recurrent pancreatitis as he does have a history of, he does have pancreas transplant any does have chronic TPN treatment Patient in acute pain Dilaudid was ordered as he has an adverse reaction to morphine Labs resulted with significant abnormalities including a lipase of greater than 3000 amylase of 720 10 lactic acid of 2.1. These are higher than previous visits. At this time I will plan to admit the patient for recurrent pancreatitis. IV fluids and when necessary pain medication, antiemetics and daily PPIs were ordered. Patient was updated on plan. - Lab Data Result diagrams: 06/18/18 03:50 06/18/18 03:50 Lab Results 06/18/18 06/18/18 06/18/18 Range/Units 03:50 03:50 03:50 WBC 13.3 H (3.8-10.6) k/uL RBC 4.33 (4.30-5.90) m/uL Hgb 11.8 L (13.0-17.5) gm/dL Hct 38.2 L (39.0-53.0) % MCV 88.2 (80.0-100.0) fL MCH 27.1 (25.0-35.0) pg MCHC 30.8 L (31.0-37.0) g/dL RDW 17.9 H (11.5-15.5) % Plt Count 163 (150-450) k/uL Sodium 140 (137-145) mmol/L Potassium 4.5 (3.5-5.1) mmol/L Chloride 104 (98-107) mmol/L Carbon Dioxide 27 (22-30) mmol/L Anion Gap 9 mmol/L BUN 52 H (9-20) mg/dL Creatinine 1.14 (0.66-1.25) mg/dL Est GFR (CKD-EPI)AfAm 87 (>60 ml/min/1.73 sqM) Est GFR (CKD-EPI)NonAf 75 (>60 ml/min/1.73 sqM) Glucose 67 L (74-99) mg/dL Plasma Lactic Acid [place] 2.1 H* (0.7-2.0) mmol/L Calcium 8.5 (8.4-10.2) mg/dL Total Bilirubin 0.3 (0.2-1.3) mg/dL AST 24 (17-59) U/L ALT 57 (21-72) U/L Alkaline Phosphatase 145 H (38-126) U/L Total Protein 6.0 L (6.3-8.2) g/dL Albumin 3.3 L (3.5-5.0) g/dL Amylase 721 H* (30-110) U/L Lipase 3662 H (23-300) U/L Disposition Clinical Impression: Pancreatitis of pancreas transplant Disposition: ADMITTED IP TO THIS HOSP Referrals: Ras Zhao MD [Primary Care Provider] - 1-2 days
[2018-06-18 04:05] LABS: Anisocytosis Slight; Basophils % (A) 0 %; Eosinophils # (A) 0.1 k/uL (0-0.7); Eosinophils % (A) 0 %; HCT 38.2 % (39.0-53.0); HGB 11.8 gm/dL (13.0-17.5); Hypochromasia Marked; Lymphocytes # (A) 1.8 k/uL (1.0-4.8); Lymphocytes % (A) 14 %; MCH 27.1 pg (25.0-35.0); MCHC 30.8 g/dL (31.0-37.0); MCV 88.2 fL (80.0-100.0); Mean Platelet Volume 11.5; Monocytes # (A) 0.9 k/uL (0-1.0); Monocytes % (A) 7 %; Neutrophils # (A) 10.1 k/uL (1.3-7.7); Neutrophils % (A) 76 %; Platelet Count 163 k/uL (150-450); RBC 4.33 m/uL (4.30-5.90); RDW 17.9 % (11.5-15.5); WBC 13.3 k/uL (3.8-10.6)
[2018-06-18 04:14] LABS: Albumin 3.3 g/dL (3.5-5.0); Calcium 8.5 mg/dL (8.4-10.2); Potassium 4.5 mmol/L (3.5-5.1); Total Bilirubin 0.3 mg/dL (0.2-1.3)
[2018-06-18] MEDS ORDERED: HYDROmorphone 1 MG/ML 1 ML SYRINGE IVP STA ×2 (04:19→06:00)
[2018-06-18] MEDS ORDERED: ONDANSETRON 4 MG/2 ML VIAL IVP PRN (04:24)
[2018-06-18] MEDS ORDERED: NALOXONE 0.4 MG/ML 1 ML VIAL IV PRN (04:24)
[2018-06-18] MEDS ORDERED: HYDROmorphone 0.5 MG/0.5 ML SYRINGE IVP PRN (04:24)
[2018-06-18 04:31] LABS: Large Platelets Present; Poikilocytosis (M) Present; Target Cells Present
[2018-06-18 04:32] LABS: Ovalocytes Present; RBC Fragments Present
[2018-06-18] MEDS: SODIUM CHLORIDE 0.9% 1,000 ML IV SCH ×6 (05:30→22:29)
[2018-06-18] MEDS ORDERED: LORazepam 2 MG/ML INJ IV STA (06:00)
[2018-06-18] MEDS ORDERED: SODIUM CHLORIDE 0.9% 2,000 ML IV ONE (06:03)
[2018-06-18] MEDS: HYDROmorphone 0.5 MG/0.5 ML SYRINGE IVP PRN ×5 (08:52→23:44)
[2018-06-18] MEDS: PANTOPRAZOLE 40 MG/10 ML VIAL IV SCH (09:01)
[2018-06-18] MEDS ORDERED: HYDROcodone/APAP 10-325MG 1 EACH TAB PO PRN (11:50)
[2018-06-18] MEDS ORDERED: IPRATROPIUM 0.5 MG/2.5 ML NEBU INHALATION PRN (11:50)
[2018-06-18] MEDS ORDERED: METOPROLOL TARTRATE 12.5 MG TAB PO PRN (11:50)
[2018-06-18] MEDS ORDERED: ALBUTEROL NEBULIZED 2.5 MG/3 ML INHALATION PRN (11:50)
[2018-06-18] MEDS ORDERED: HYDROCORTISONE 10 MG TAB PO SCH (12:00)
[2018-06-18] MEDS ORDERED: METHADONE 10 MG TAB PO SCH (12:00)
[2018-06-18] MEDS ORDERED: HYDROCORTISONE SUCCINATE 100 MG/2 ML VIAL IV SCH (12:19)
[2018-06-18] MEDS: CALCIUM CARBONATE 500 MG CHEWABLE PO SCH ×3 (14:03→22:26)
[2018-06-18] MEDS: FONDAPARINUX 2.5 MG/0.5 ML SYRINGE SQ SCH (14:03)
[2018-06-18] MEDS: CHOLECALCIFEROL 1,000 UNIT TAB PO SCH (14:04)
[2018-06-18] MEDS: HYDROCORTISONE SUCCINATE 100 MG/2 ML VIAL IV SCH ×2 (14:04→22:22)
[2018-06-18] MEDS: SULFAMETHOX-TMP 400-80MG 1 EACH TAB PO SCH ×2 (14:05→14:07)
[2018-06-18] MEDS: QUEtiapine 25 MG TAB PO SCH (14:05)
[2018-06-18] MEDS: GABAPENTIN 300 MG CAP PO SCH ×3 (14:05→22:26)
[2018-06-18] MEDS: FLECAINIDE 50 MG TAB PO SCH ×2 (14:06→23:51)
[2018-06-18] MEDS: TACROLIMUS 1 MG CAP PO SCH ×2 (14:07→22:25)
[2018-06-18] MEDS: SERTRALINE 100 MG TAB PO SCH (14:07)
[2018-06-18] MEDS: [UNRECOGNIZED DRUG - OTHER] PO SCH ×3 (16:38→22:30)
[2018-06-18] MEDS: NYSTATIN 100000 UNIT/ML PO SCH ×3 (16:38→22:30)
[2018-06-18 16:57] LABS: Magnesium 2.2 mg/dL (1.6-2.3); Phosphorus 4.2 mg/dL (2.5-4.5)
[2018-06-18 17:21] LABS: Glucose,Whole Blood 78 mg/dL (75-99)
[2018-06-18] MEDS ORDERED: TPN IV SCH (18:00)
[2018-06-18] MEDS: INSULIN ASPART (NovoLOG) 100 UNIT/ML VIAL SQ SCH ×2 (18:23→23:57)
[2018-06-18 18:28] LABS: Glucose,Whole Blood 96 mg/dL (75-99)
[2018-06-18] MEDS: SYMBICORT 160-4.5 MCG INHALER INHALATION SCH (19:07)
[2018-06-18] MEDS ORDERED: TPN PER PHARMACY MISCELLANE PRN (19:38)
[2018-06-18 20:37] LABS: Glucose,Whole Blood 84 mg/dL (75-99)
[2018-06-18] MEDS ORDERED: [UNRECOGNIZED DRUG - REMARK] IV SCH ×7 (21:00)
[2018-06-18] MEDS ORDERED: METHADONE 5 MG TAB PO SCH (21:00)
[2018-06-18] MEDS: FAT EMULSION 20% 250 ML in EMPTY BAG 1 BAG IV SCH (21:35)
[2018-06-18] MEDS: METOPROLOL TARTRATE 12.5 MG TAB PO SCH (22:05)
[2018-06-18] MEDS: clonazePAM 0.5 MG TAB PO SCH (22:23)
[2018-06-18] MEDS: SERTRALINE 50 MG TAB PO SCH (22:24)
[2018-06-18] MEDS: traZODone HCL 100 MG TAB PO SCH (22:25)
[2018-06-18 23:59] LABS: Glucose,Whole Blood 146 mg/dL (75-99)
[2018-06-19] MEDS: HYDROmorphone 0.5 MG/0.5 ML SYRINGE IVP PRN ×7 (02:56→23:47)
[2018-06-19] MEDS: SODIUM CHLORIDE IV SCH ×2 (03:56→09:27)
[2018-06-19] MEDS: MAGNESIUM SULFATE IV SCH ×2 (03:56→09:27)
[2018-06-19] MEDS: [UNRECOGNIZED DRUG - OTHER] IV SCH ×2 (03:56→09:27)
[2018-06-19] MEDS: INSULIN ASPART (NovoLOG) 100 UNIT/ML VIAL SQ SCH ×4 (05:44→23:46)
[2018-06-19] MEDS: HYDROCORTISONE SUCCINATE 100 MG/2 ML VIAL IV SCH ×3 (05:45→20:53)
[2018-06-19 05:53] LABS: Glucose,Whole Blood 155 mg/dL (75-99)
--- NOTE | 2018-06-19 06:13 | HP ---
HISTORY AND PHYSICAL DATE OF ADMISSION: 06/18/2018 DATE OF SERVICE: 06/18/2018 PRESENTING COMPLAINT: Abdominal pain. HISTORY OF PRESENTING COMPLAINT: This is a 48-year-old patient, well known to me from multiple prior admissions. The patient follows with Dr. Zhao, his family doctor. The patient had a multivisceral transplant in [place] including a mesenteric vein graft followed by mesenteric graft thrombosis and subsequent gastroparesis. The patient had been on anticoagulation. The patient also had intestinal tract obstruction from congenital defect. The patient has got adrenal insufficiency, chronic anemia and a 4-organ transplant in 2002 including small bowel, pancreas, duodenum and stomach in [place]. The patient also had a valvular cardiac surgery done. The patient in the past has had bowel dehiscence and abdomen had to be opened up and he is having dressing changes. The patient also in January last year found fistulas in the abdomen and food was coming out. The patient was then airlifted to [facility]. The patient had surgery done and a drainage bag was put for the fistula and also patient has got a separate ileostomy bag. The patient was admitted in April of this year and patient was moved back to [facility]. The patient also gets TPN. The patient was just 2 weeks ago at [facility] for 1 week of acute pancreatitis and was due to go back for further evaluation to see if surgery needs to be done. The patient now presents with nausea, vomiting, increasing abdominal pain, again has found to have an acute pancreatitis. Patient has been made n.p.o. except for p.o. medications. Earlier today nurse did receive a phone call from the transplant team at the [facility], they wanted the patient to get back there. When I spoke to the patient today, patient does not wish to go back there right now and keep his appointment. There are no fever or chills. REVIEW OF SYSTEMS: CONSTITUTIONAL: Tired. HEENT: None. RESPIRATORY: None. CARDIOVASCULAR: None. GASTROINTESTINAL: As above. GENITOURINARY: None. MUSCULOSKELETAL: None. DERMATOLOGICAL: Chronic skin changes. HEMATOLOGIC: None. LYMPHATIC: None. PSYCHIATRY: Anxiety. NEUROLOGICAL: Numbness and tingling. PAST MEDICAL HISTORY: Past medical history of atrial fibrillation, COPD, GERD, congenital defect of intestinal tract obstruction including multi-vessel organ transplant including small bowel, pancreas, duodenum and stomach in [place] in 2002 with mesenteric vein graft thrombosis, gastritis, gastroparesis, adrenal insufficiency, chronic anemia, left knee surgical repair after and a heart surgery for a valve. SOCIAL HISTORY: Lives with significant other. Smoked for many years up until recently. Quit drinking alcohol in 2016. FAMILY HISTORY: The patient is adopted. HOME MEDICATIONS: 1. Trazodone 200 mg q.h.s. 2. Klonopin 0.25 p.o. q.h.s. 3. TPN. 4. Prograf 5 mg b.i.d. 5. Bactrim DS half a tablet Saturday, Saturday and Saturday. 6. Carafate 1 gram p.o. b.i.d. 7. Zoloft 50 mg q.h.s., 100 mg p.o. daily. 8. Seroquel 25 mg daily. 9. Protonix 40 mg b.i.d. 10.Mycostatin p.o. Q.i.d. 11.Metoprolol 12.5 p.o. b.i.d. p.r.n. 12.Methadone 5 mg q.h.s. and 10 mg in the morning. 13.Atrovent HFA 2 puffs b.i.d. p.r.n. 14.Cortef 30 mg p.o. b.i.d. 15.[place] 10 one tablet p.o. t.i.d. p.r.n. 16.Gabapentin 600 mg p.o. t.i.d. 17.Arixtra 5 mg subcu daily. 18.Tambocor 150 mg p.o. q.12. 19.Iron 325 p.o. b.i.d. 20.Vitamin D3, 5000 units p.o. Saturday, Saturday and Saturday. 21.Tums 500 mg p.o. q.i.d. 22.Symbicort 160/4.5 two puffs b.i.d. 23.ProAir 2 puffs q.6 p.r.n. ALLERGIES: Allergies to ASPIRIN, HEPARIN, TORADOL, MORPHINE. PHYSICAL EXAMINATION: On examination, temperature 97.6, pulse 69, respirations 15, blood pressure 136/76, pulse ox 94% on room air. GENERAL APPEARANCE: Lying in bed, awake. EYES: Pupils equal. Conjunctivae normal. NECK: JVD not raised. Mass not palpable. RESPIRATORY: Effort normal. LUNGS: Diminished breath sounds. CARDIOVASCULAR: First and second sounds normal. No edema. ABDOMEN: Multiple scars. Has a bag over the fistula site and also ileostomy bag with liquid stools. Liver and spleen not palpable. Tenderness present. No guarding or rigidity. LYMPHATIC: No lymph nodes palpable in neck or axillae. PSYCHIATRY: Alert and oriented x3. Mood and affect anxious appearing. NEUROLOGICAL: Pupils equal. Cranial nerves grossly intact. Power and sensation grossly intact. INVESTIGATIONS: White count 13.3, hemoglobin 11.8. Potassium 4.5. BUN 52, creatinine 1.14. Lactic acid 2.1. Amylase 721, Lipase 3662. ASSESSMENT: 1. Acute severe recurrent pancreatitis. 2. Chronic obstructive pulmonary disease in an ex-smoker. 3. Four organ transplant 2002 including small bowel, pancreas, duodenum and stomach being followed by [facility]. 4. Multiple abdominal fistulas, got a drainage bag. 5. Gastroesophageal reflux disease. 6. Chronic gastroparesis. 7. Chronic mesenteric vein thrombosis for which patient is on anticoagulation. 8. Immunosuppressed state. 9. Chronic kidney disease stage 3. 10.Ileostomy bag. PLAN: Home medications are to continue. Patient has been made n.p.o. We will follow the pancreatic enzymes. The patient does not wish to go back to the [facility] right now, not before his scheduled appointment. He is waiting to see somebody at [facility] he states. The patient is n.p.o. given IV hydrocortisone 50 mg q.8. Care was discussed with the patient. Questions were answered. Consultation to General Surgery and GI also was done. MMODL / IJN: [id number] /
[2018-06-19 08:48] LABS: ALT 44 U/L (21-72); AST 25 U/L (17-59); Albumin 2.7 g/dL (3.5-5.0); Alkaline Phosphatase 115 U/L (38-126); Amylase 190 U/L (30-110); Anion Gap 3 mmol/L; Blood Urea Nitrogen 26 mg/dL (9-20); Calcium 8.1 mg/dL (8.4-10.2); Carbon Dioxide 30 mmol/L (22-30); Chloride 106 mmol/L (98-107); Glucose 124 mg/dL (74-99); Lipase 177 U/L (23-300); Magnesium 1.7 mg/dL (1.6-2.3); Potassium 4.5 mmol/L (3.5-5.1); Sodium 139 mmol/L (137-145); Total Bilirubin 0.2 mg/dL (0.2-1.3); Total Protein 5.2 g/dL (6.3-8.2)
[2018-06-19] MEDS: SYMBICORT 160-4.5 MCG INHALER INHALATION SCH ×2 (09:11→20:48)
[2018-06-19] MEDS: METOPROLOL TARTRATE 12.5 MG TAB PO SCH ×2 (10:20→20:48)
[2018-06-19] MEDS: CALCIUM CARBONATE 500 MG CHEWABLE PO SCH ×4 (10:21→20:56)
[2018-06-19] MEDS: QUEtiapine 25 MG TAB PO SCH (10:21)
[2018-06-19] MEDS: PANTOPRAZOLE 40 MG/10 ML VIAL IV SCH (10:21)
[2018-06-19] MEDS: SERTRALINE 100 MG TAB PO SCH (10:21)
[2018-06-19] MEDS: GABAPENTIN 300 MG CAP PO SCH ×3 (10:21→20:56)
[2018-06-19] MEDS: TACROLIMUS 1 MG CAP PO SCH ×2 (10:23→20:55)
[2018-06-19] MEDS: NYSTATIN 100000 UNIT/ML PO SCH ×4 (10:23→21:22)
[2018-06-19] MEDS: [UNRECOGNIZED DRUG - OTHER] PO SCH ×4 (10:23→21:22)
[2018-06-19] MEDS: FONDAPARINUX 2.5 MG/0.5 ML SYRINGE SQ SCH (10:23)
[2018-06-19] MEDS: FLECAINIDE 50 MG TAB PO SCH ×2 (11:39→23:46)
[2018-06-19 11:59] LABS: Glucose,Whole Blood 81 mg/dL (75-99)
[2018-06-19] MEDS: FONDAPARINUX 5 MG/0.4 ML SQ SCH (16:04)
[2018-06-19] MEDS: SODIUM CHLORIDE 0.9% 1,000 ML IV SCH (16:06)
[2018-06-19 18:32] LABS: Glucose,Whole Blood 122 mg/dL (75-99)
[2018-06-19] MEDS: clonazePAM 0.5 MG TAB PO SCH (20:53)
[2018-06-19] MEDS: SERTRALINE 50 MG TAB PO SCH (20:54)
[2018-06-19] MEDS: traZODone HCL 100 MG TAB PO SCH (20:56)
[2018-06-19] MEDS ORDERED: [UNRECOGNIZED DRUG - REMARK] IV SCH ×7 (21:00)
--- NOTE | 2018-06-19 22:00 | P.GSCN ---
History of Present Illness Consult date: 06/19/18 Reason for Consult: Pancreatitis History of present illness: 48-year-old male with a complex medical history. Patient underwent previous Pancreas and small bowel transplant in the past. Patient follows up for the majority of his medical Care through [facility]. Patient actually has an appointment next week with them to discuss reexploration and repair of enterocutaneous fistula. Patient has had pancreatitis in April and returns now with complaints of mid to upper abdominal pain. No alcohol use. No known gallstones. Patient feels better today. Encourage enzymes improving. Alkaline phosphatase slightly elevated. Review of Systems The patient denies any acute changes in his vision or hearing, no dysphagia or odynophagia, no chest pain or shortness of breath, no dysuria or hematuria, no headache, no runny nose, no rectal bleeding or melena, no unexplained weight loss 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 and the patient ultimately had multi-organ transplantation including the stomach, small bowel, duodenum and pancreas 2002, post operative complications including 2 dehisciences and developed fistula twice-has ileostomy and an abdominal wound drainage bag, recurrent pancreatitis, history of adrenal insufficiency maintained on Cortef, immunosuppressed, chronic mesenteric vein thrombosis, 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 History of Any Multi-Drug Resistant Organisms: C-DIFF, MRSA Year Discovered:: MRSA sputum 05/29/17 MDRO Source:: C-diff stool 05/11/18 Past Surgical History: Bowel Resection, Cholecystectomy Additional Past Surgical History / Comment(s): Multivisceral organ transplant including bowel, doudenum,pancreas, and stomach at [facility]- follows thru [facility],spleen removed, left knee arthrotomy, EGD, colonoscopy, ERCP with insertion of a pancreatic duct stent- since removed . ileostomy in october 2017, dehised x 2, repair of fistula, second fistula appeared may 01, 2018, pt currently has ostomy bag in which fistula drained into, colonized c-diff, MRSA in sputum a year ago, as infant valve surgery. Past Anesthesia/Blood Transfusion Reactions: No Reported Reaction Additional Past Anesthesia/Blood Transfusion Reaction / Comm: STATES R/T TO MULTIPLE SX HE REQUIRES A LOT OF MEDICATION for anesthesia. He has had multiple blood transfusions without reaction. Smoking Status: Light tobacco smoker - Past Family History Mother History Unknown: Yes Additional Family Medical History / Comment(s): pt is adopted, does not know any hx Father History Unknown: Yes Additional Family Medical History / Comment(s): pt is adopted, does not know any hx Medications and Allergies Home Medications Medication Instructions Recorded Confirmed Type Ferrous Gluconate 325 mg PO BID 09/02/13 06/18/18 History Sertraline [Zoloft] 100 mg PO DAILY 09/02/13 06/18/18 History Sulfamethoxazole/Trimethoprim 0.5 tab PO MOWEFR 08/02/16 06/18/18 History [Bactrim DS 800-160 mg] Albuterol Sulfate [Proair Hfa] 2 puff INHALATION RT-Q6H PRN 12/19/16 06/18/18 History traZODone HCL 200 mg PO HS 12/19/16 06/18/18 History Sucralfate [Carafate] 1 gm PO BID 03/23/17 06/18/18 History Budesonide/Formoterol Fumarate 2 puff INHALATION RT-BID 05/17/17 06/18/18 History [Symbicort 160-4.5 Mcg Inhaler] Methadone [Dolophine] 10 mg PO QAM 05/17/17 06/18/18 History QUEtiapine [SEROquel] 25 mg PO DAILY 07/23/17 06/18/18 History Flecainide Acetate [Tambocor] 150 mg PO Q12H 12/12/17 06/18/18 History Hydrocortisone [Cortef] 30 mg PO BID 12/12/17 06/18/18 History Nystatin 100,000 Unit/ml Susp 500,000 unit PO QID 12/12/17 06/18/18 History [Mycostatin Oral Susp] clonazePAM [Klonopin ODT Wafer] 0.25 mg PO HS 12/12/17 06/18/18 History HYDROcodone/APAP 10-325MG [[place] 1 tab PO TID PRN 01/10/18 06/18/18 History 10-325] Calcium Carbonate [Tums] 500 mg PO QID 01/22/18 06/18/18 History Cholecalciferol [Vitamin D3] 5,000 unit PO MOWEFR 01/22/18 06/18/18 History Ipratropium [place] [Atrovent Hfa] 2 puff INHALATION RT-BID PRN 01/22/18 History Methadone [Dolophine] 5 mg PO HS 01/22/18 06/18/18 History Fondaparinux Sodium [Arixtra] 5 mg SQ DAILY 02/13/18 06/18/18 History Metoprolol Tartrate 12.5 mg PO BID PRN 05/17/18 06/18/18 History Pantoprazole [Protonix] 40 mg PO BID 05/17/18 06/18/18 History Sertraline [Zoloft] 50 mg PO HS 05/17/18 06/18/18 History Gabapentin 600 mg PO TID 06/18/18 06/18/18 History Tacrolimus [Prograf] 5 mg PO BID 06/18/18 06/18/18 History Tpn 1 dose IV DAILY@1800 06/18/18 06/18/18 History Allergies Allergy/AdvReac Type Severity Reaction Status Date / Time aspirin Allergy GI Verified 06/18/18 03:37 BLEEDING , ABDOMINAL PAIN heparin AdvReac abdominal Verified 06/18/18 03:37 pain , GI bleeding ketorolac tromethamine AdvReac migraines Verified 06/18/18 03:37 [From Toradol] morphine AdvReac Itching Verified 06/18/18 03:37 Surgical - Exam Vital Signs Temp Pulse Resp BP Pulse Ox 97.9 F 100 20 114/71 100 06/18/18 03:34 06/18/18 03:34 06/18/18 03:34 06/18/18 03:34 06/18/18 03:34 Physical exam: General: Well-developed, well-nourished HEENT: Normocephalic, sclerae nonicteric Abdomen: Mild epigastric tenderness, mild distention, right-sided ileostomy noted, central abdominal wall enterocutaneous fistula noted Extremities: No edema Neuro: Alert and oriented Results - Labs 06/18/18 03:50 06/19/18 07:43 Abnormal Lab Results - Last 24 Hours (Table) 06/18/18 06/19/18 06/19/18 Range/Units 23:45 05:40 07:43 BUN 26 H (9-20) mg/dL Glucose 124 H (74-99) mg/dL POC Glucose (mg/dL) 146 H 155 H (75-99) mg/dL Calcium 8.1 L (8.4-10.2) mg/dL Total Protein 5.2 L (6.3-8.2) g/dL Albumin 2.7 L (3.5-5.0) g/dL Amylase 190 H (30-110) U/L 06/19/18 Range/Units 18:19 BUN (9-20) mg/dL Glucose (74-99) mg/dL POC Glucose (mg/dL) 122 H (75-99) mg/dL Calcium (8.4-10.2) mg/dL Total Protein (6.3-8.2) g/dL Albumin (3.5-5.0) g/dL Amylase (30-110) U/L Diabetes panel 06/19/18 Range/Units 07:43 Sodium 139 (137-145) mmol/L Potassium 4.5 (3.5-5.1) mmol/L Chloride 106 (98-107) mmol/L Carbon Dioxide 30 (22-30) mmol/L BUN 26 H (9-20) mg/dL Creatinine 0.89 (0.66-1.25) mg/dL Glucose 124 H (74-99) mg/dL Calcium 8.1 L (8.4-10.2) mg/dL AST 25 (17-59) U/L ALT 44 (21-72) U/L Alkaline Phosphatase 115 (38-126) U/L Total Protein 5.2 L (6.3-8.2) g/dL Albumin 2.7 L (3.5-5.0) g/dL Calcium panel 06/19/18 Range/Units 07:43 Calcium 8.1 L (8.4-10.2) mg/dL Ionized Calcium [place] 5.0 (4.5-5.3) mg/dL Phosphorus 3.0 (2.5-4.5) mg/dL Albumin 2.7 L (3.5-5.0) g/dL Pituitary panel 06/19/18 Range/Units 07:43 Sodium 139 (137-145) mmol/L Potassium 4.5 (3.5-5.1) mmol/L Chloride 106 (98-107) mmol/L Carbon Dioxide 30 (22-30) mmol/L BUN 26 H (9-20) mg/dL Creatinine 0.89 (0.66-1.25) mg/dL Glucose 124 H (74-99) mg/dL Calcium 8.1 L (8.4-10.2) mg/dL Adrenal panel 06/19/18 Range/Units 07:43 Sodium 139 (137-145) mmol/L Potassium 4.5 (3.5-5.1) mmol/L Chloride 106 (98-107) mmol/L Carbon Dioxide 30 (22-30) mmol/L BUN 26 H (9-20) mg/dL Creatinine 0.89 (0.66-1.25) mg/dL Glucose 124 H (74-99) mg/dL Calcium 8.1 L (8.4-10.2) mg/dL Total Bilirubin 0.2 (0.2-1.3) mg/dL AST 25 (17-59) U/L ALT 44 (21-72) U/L Alkaline Phosphatase 115 (38-126) U/L Total Protein 5.2 L (6.3-8.2) g/dL Albumin 2.7 L (3.5-5.0) g/dL Assessment and Plan (1) Acute pancreatitis Narrative/Plan: Patient doing better at this time. Etiology for this patient's pancreatitis unclear. Continue supportive care. Follow up with [facility] postdischarge. Current Visit: Yes Status: Acute Code(s): K85.90 - ACUTE PANCREATITIS WITHOUT NECROSIS OR INFECTION, UNSP SNOMED Code(s): 801882491
[2018-06-19 23:55] LABS: Glucose,Whole Blood 226 mg/dL (75-99)
[2018-06-20] MEDS ORDERED: SODIUM CHLORIDE IV SCH (03:00)
[2018-06-20] MEDS ORDERED: [UNRECOGNIZED DRUG - OTHER] IV SCH (03:00)
[2018-06-20] MEDS ORDERED: MAGNESIUM SULFATE IV SCH (03:00)
[2018-06-20] MEDS: HYDROmorphone 0.5 MG/0.5 ML SYRINGE IVP PRN ×6 (03:06→22:20)
[2018-06-20] MEDS: HYDROCORTISONE SUCCINATE 100 MG/2 ML VIAL IV SCH ×2 (05:44→17:54)
[2018-06-20] MEDS: INSULIN ASPART (NovoLOG) 100 UNIT/ML VIAL SQ SCH ×3 (05:57→18:04)
[2018-06-20 06:00] LABS: Glucose,Whole Blood 162 mg/dL (75-99)
[2018-06-20 08:13] LABS: Anion Gap 4 mmol/L; Blood Urea Nitrogen 26 mg/dL (9-20); Calcium 8.5 mg/dL (8.4-10.2); Carbon Dioxide 32 mmol/L (22-30); Chloride 105 mmol/L (98-107); Glucose 141 mg/dL (74-99); Magnesium 1.7 mg/dL (1.6-2.3); Phosphorus 2.7 mg/dL (2.5-4.5); Potassium 4.2 mmol/L (3.5-5.1); Sodium 141 mmol/L (137-145)
--- NOTE | 2018-06-20 08:27 | P.CONS ---
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 He has been following up with [facility] for several years. Recently he dveloped abdominla wall dehiscence fistulas and recently underwent surgical procedures enterocutaneous fistulas at [facility]. He's admitted with recurrent abdominal pain and elevated lipase 3662 and amylase 721 consisted with acute pancreatitis. LFTs normal. Pancreatitis enzymes have since resolved. He is in the process of trying to set up a more local tertiary followup possible with [facility] to ease travel burden to [facility]. Review of Systems Constitutional: Denies fever, chills, sweats, weight gain, or loss. HEENT: Negative for migraines, blurred vision or loss, earaches, drainage, tinnitus, oral mucosal lesions, dysphagia, or odynophagia. Cardiac: Denies chest pain or arrhythmia or palpitations.. Respiratory: Negative for shortness of breath, hemoptysis, cough, or sputum production. Gastrointestinal: See HPI for pertinent findings. Genitourinary: Negative for hematuria, urgency, frequency, polyuria, dysuria, or penile discharge. Musculoskeletal: Negative for muscle aches, swelling, arthritis, and arthralgias. Neurologic: Negative for stroke or TIA. Endocrine: Negative for thyroid problems. Skin: Negative for rash or itching. Psychiatric: History of anxiety depression. 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 History of Any Multi-Drug Resistant Organisms: C-DIFF, MRSA Year Discovered:: MRSA sputum 05/29/17 MDRO Source:: C-diff stool 05/11/18 Past Surgical History: Bowel Resection, Cholecystectomy Additional Past Surgical History / Comment(s): Multivisceral organ transplant including bowel, doudenum,pancreas, and stomach at [facility]- follows thru [facility],spleen removed, left knee arthrotomy, EGD, colonoscopy, ERCP with insertion of a pancreatic duct stent- since removed . ileostomy in october 2017, dehised x 2, repair of fistula, second fistula appeared may 01, 2018, pt currently has ostomy bag in which fistula drained into, colonized c-diff, MRSA in sputum a year ago, as valve surgery. Past Anesthesia/Blood Transfusion Reactions: No Reported Reaction Additional Past Anesthesia/Blood Transfusion Reaction / Comm: STATES R/T TO MULTIPLE SX HE REQUIRES A LOT OF MEDICATION for anesthesia. He has had multiple blood transfusions without reaction. Smoking Status: Light tobacco smoker - Past Family History Mother History Unknown: Yes Additional Family Medical History / Comment(s): pt is adopted, does not know any hx Father History Unknown: Yes Additional Family Medical History / Comment(s): pt is adopted, does not know any hx Medications and Allergies Home Medications Medication Instructions Recorded Confirmed Type Ferrous Gluconate 325 mg PO BID 09/02/13 06/18/18 History Sertraline [Zoloft] 100 mg PO DAILY 09/02/13 06/18/18 History Sulfamethoxazole/Trimethoprim 0.5 tab PO MOWEFR 08/02/16 06/18/18 History [Bactrim DS 800-160 mg] Albuterol Sulfate [Proair Hfa] 2 puff INHALATION RT-Q6H PRN 12/19/16 06/18/18 History traZODone HCL 200 mg PO HS 12/19/16 06/18/18 History Sucralfate [Carafate] 1 gm PO BID 03/23/17 06/18/18 History Budesonide/Formoterol Fumarate 2 puff INHALATION RT-BID 05/17/17 06/18/18 History [Symbicort 160-4.5 Mcg Inhaler] Methadone [Dolophine] 10 mg PO QAM 05/17/17 06/18/18 History QUEtiapine [SEROquel] 25 mg PO DAILY 07/23/17 06/18/18 History Flecainide Acetate [Tambocor] 150 mg PO Q12H 12/12/17 06/18/18 History Hydrocortisone [Cortef] 30 mg PO BID 12/12/17 06/18/18 History Nystatin 100,000 Unit/ml Susp 500,000 unit PO QID 12/12/17 06/18/18 History [Mycostatin Oral Susp] clonazePAM [Klonopin ODT Wafer] 0.25 mg PO HS 12/12/17 06/18/18 History HYDROcodone/APAP 10-325MG [[place] 1 tab PO TID PRN 01/10/18 06/18/18 History 10-325] Calcium Carbonate [Tums] 500 mg PO QID 01/22/18 06/18/18 History Cholecalciferol [Vitamin D3] 5,000 unit PO MOWEFR 01/22/18 06/18/18 History Ipratropium [place] [Atrovent Hfa] 2 puff INHALATION RT-BID PRN 01/22/18 History Methadone [Dolophine] 5 mg PO HS 01/22/18 06/18/18 History Fondaparinux Sodium [Arixtra] 5 mg SQ DAILY 02/13/18 06/18/18 History Metoprolol Tartrate 12.5 mg PO BID PRN 05/17/18 06/18/18 History Pantoprazole [Protonix] 40 mg PO BID 05/17/18 06/18/18 History Sertraline [Zoloft] 50 mg PO HS 05/17/18 06/18/18 History Gabapentin 600 mg PO TID 06/18/18 06/18/18 History Tacrolimus [Prograf] 5 mg PO BID 06/18/18 06/18/18 History Tpn 1 dose IV DAILY@1800 06/18/18 06/18/18 History Allergies Allergy/AdvReac Type Severity Reaction Status Date / Time aspirin Allergy GI Verified 06/18/18 03:37 BLEEDING , ABDOMINAL PAIN heparin AdvReac abdominal Verified 06/18/18 03:37 pain , GI bleeding ketorolac tromethamine AdvReac migraines Verified 06/18/18 03:37 [From Toradol] morphine AdvReac Itching Verified 06/18/18 03:37 Physical Exam Vitals: Vital Signs Temp Pulse Pulse Resp BP BP Pulse Ox 06/19/18 07:00 98.7 F 79 16 115/68 95 06/18/18 23:47 98.4 F 97 15 123/66 96 06/18/18 19:50 97.7 F 67 16 112/70 97 06/18/18 17:52 97.6 F 69 15 136/76 94 L 06/18/18 16:13 97.4 F L 96 20 134/69 92 L 06/18/18 15:55 97.8 F 69 18 115/63 96 Intake and Output 06/18/18 06/19/18 06/19/18 22:59 06:59 14:59 Intake Total 123.2 500 Output Total 1475 1300 250 Balance -1475 -1176.8 250 Intake: Intake, IV Titration 123.2 500 Amount Mvi, Adult No.4 with Vit 123.2 K 10 ml Trace (Conc-1Ml/ Dose) 1 ml Copper Chloride 0.4 mg Zinc Sulfate 5 mg Sodium Chloride 2.5MEQ/ml Vial 30 meq Magnesium Sulfate gm 0.5 gm In Amino Acid 5 %-D15w+Lytes*E* 1,000 ml @ 175 mls/hr IV .Q5H54M [facility] Rx#:[id number] Sodium Chloride 0.9% 1, 500 000 ml @ 50 mls/hr IV . Q20H [facility] Rx#:[id number] Output: Urine 1200 1100 Other 275 200 250 Other: Voiding Method Urinal Urinal # Voids 2 2 Weight 91.8 kg General appearance: The patient is alert, oriented, in no acute distress. HET: Head is normocephalic and atraumatic. Pupils are equal and reactive. Oropharynx is clear without lesions. Neck: Supple without lymphadenopathy. Trachea midline. Heart: S1 S2. Regular rate and rhythm. Lungs: No crackles or wheezes are heard. Abdomen: Soft, midline wound with ostomy with drainage. Right sided ostomy intact mildly tender, nondistended with bowel sounds. No peritoneal signs. No palpable organomegaly or masses. Extremities: Normal skin color and turgor. No cyanosis, rash, ulceration, clubbing, or edema. Radial and pedal pulses are 2/4 bilaterally. Neurological: No focal deficits. Strength and sensation are grossly intact. Results CBC & Chem 7: 06/20/18 07:40 06/20/18 07:30 Labs: Abnormal Lab Results - Last 24 Hours (Table) 06/18/18 06/19/18 06/19/18 Range/Units 23:45 05:40 07:43 BUN 26 H (9-20) mg/dL Glucose 124 H (74-99) mg/dL POC Glucose (mg/dL) 146 H 155 H (75-99) mg/dL Calcium 8.1 L (8.4-10.2) mg/dL Total Protein 5.2 L (6.3-8.2) g/dL Albumin 2.7 L (3.5-5.0) g/dL Amylase 190 H (30-110) U/L Assessment and Plan (1) Acute pancreatitis Narrative/Plan: Multiorgan transplant patient recent surgical repair of abdominal wall enterocutaneous fistulas presents with abdomianl pain secondary to acute pancreatitis with normalization of pancreatic enzymes. Complex surgical history requiring monitoring at tertiary center [facility]. Current Visit: Yes Status: Acute Code(s): K85.90 - ACUTE PANCREATITIS WITHOUT NECROSIS OR INFECTION, UNSP SNOMED Code(s): 409812596 Plan: 1. Supportive measures. 2. TPN as previously prescribed. 3. Patient is scheduled to f/u with [facility] in a few weeks. 4. No further workup from a GI standpoint. Thank you for this kind referral and the opportunity to participate in the care of your patient. This consultation was discussed with Dr. Willams. The impression and plan of care have been directed as dictated.
[2018-06-20 08:42] VITALS: RESP 16
[2018-06-20] MEDS: SYMBICORT 160-4.5 MCG INHALER INHALATION SCH ×2 (09:24→21:17)
[2018-06-20] MEDS: PANTOPRAZOLE 40 MG/10 ML VIAL IV SCH (11:00)
[2018-06-20] MEDS: QUEtiapine 25 MG TAB PO SCH (11:00)
[2018-06-20] MEDS: CALCIUM CARBONATE 500 MG CHEWABLE PO SCH ×4 (11:00→21:49)
[2018-06-20] MEDS: SERTRALINE 100 MG TAB PO SCH (11:00)
[2018-06-20] MEDS: GABAPENTIN 300 MG CAP PO SCH ×3 (11:00→21:49)
[2018-06-20] MEDS: FONDAPARINUX 5 MG/0.4 ML SQ SCH (11:01)
[2018-06-20] MEDS: METOPROLOL TARTRATE 12.5 MG TAB PO SCH ×2 (11:02→21:52)
--- NOTE | 2018-06-20 11:02 | PN ---
PROGRESS NOTE DATE OF SERVICE: 06/19/2018. PRESENTING COMPLAINT: Abdominal pain. INTERVAL HISTORY: This patient was seen by me yesterday. The patient is status post a 4 organ transplant, presented with recurrent acute severe pancreatitis. Still having significant pain though slightly better than before. Patient is on ice chips. Lying in bed. Mother at the bedside. No fever, no chills. Feeling tired and run down. Also getting TPN. Phone call was received from Dr. Mickey Beltre, telephone number , extension [phone]. But at this point, patient has decided not to get transferred and wait for his regular appointment. REVIEW OF SYSTEMS: Done for constitutional, cardiovascular, GI, pulmonary; relevant findings as above. CURRENT MEDICATIONS: Current medications are reviewed that include IV Solu-Cortef. PHYSICAL EXAMINATION: On examination, temperature 98.3, pulse 68, respiration 15, blood pressure 106/64, pulse ox 91% on room air. GENERAL APPEARANCE: Lying in bed, tired appearing, awake. EYES: Pupils equal. Conjunctivae pale. NECK: JVD unable to assess. Mass not palpable. RESPIRATORY: Effort normal. LUNGS: Diminished breath sounds. CARDIOVASCULAR: First and second sounds normal. No edema. ABDOMEN: Has got a bag over the fistula site and an ileostomy bag with liquid stools. Liver and spleen are not palpable. Less tenderness. No guarding or rigidity. Abdomen is soft. PSYCHIATRY: Alert and oriented x3. Mood and affect anxious appearing. INVESTIGATIONS: Amylase 190, lipase 177, potassium 4.5. ASSESSMENT: 1. Acute severe recurrent pancreatitis with some clinical and biochemical improvement. 2. Chronic obstructive pulmonary disease in an ex-smoker. 3. Four organ transplant in 2002 including small bowel, pancreas, duodenum and stomach being followed at [facility]. 4. Multiple abdominal fistulas with a drainage bag in place. 5. Gastroesophageal reflux disease. 6. Chronic gastroparesis. 7. Chronic mesenteric vein thrombosis for which patient is on anticoagulation. 8. Immunosuppressed state. 9. Chronic kidney disease stage 3 from nephrosclerosis. 10.Ileostomy bag. PLAN: Continue with medication and treatment plan. Patient is on clear liquids. The patient has been on ice chips, was advanced to clear liquids. Repeat labs in the morning. Will cut back the dose of hydrocortisone tomorrow. Care was discussed with the patient and at the bedside. Prognosis is guarded. MMODL / IJN: [id number] /
[2018-06-20] MEDS: TACROLIMUS 1 MG CAP PO SCH ×2 (11:04→21:50)
[2018-06-20 11:06] LABS: Anisocytosis Slight; Basophils % (A) 0 %; Eosinophils # (A) 0.1 k/uL (0-0.7); Eosinophils % (A) 1 %; HCT 36.9 % (39.0-53.0); HGB 11.2 gm/dL (13.0-17.5); Hypochromasia Marked; Lymphocytes # (A) 1.2 k/uL (1.0-4.8); Lymphocytes % (A) 12 %; MCH 27.8 pg (25.0-35.0); MCHC 30.3 g/dL (31.0-37.0); Mean Platelet Volume 12.9; Monocytes # (A) 0.9 k/uL (0-1.0); Monocytes % (A) 9 %; Neutrophils # (A) 7.4 k/uL (1.3-7.7); Neutrophils % (A) 76 %; Platelet Count 166 k/uL (150-450); RBC 4.01 m/uL (4.30-5.90); RDW 17.7 % (11.5-15.5); WBC 9.7 k/uL (3.8-10.6)
[2018-06-20 11:15] LABS: ALT 39 U/L (21-72); AST 22 U/L (17-59); Albumin 2.7 g/dL (3.5-5.0); Alkaline Phosphatase 112 U/L (38-126); Amylase 112 U/L (30-110); Lipase 110 U/L (23-300); Total Bilirubin 0.2 mg/dL (0.2-1.3); Total Protein 5.3 g/dL (6.3-8.2)
[2018-06-20 11:42] VITALS: BMI 25.8
--- NOTE | 2018-06-20 12:07 | P.PN ---
Subjective Progress Note Date: 06/20/18 Principal diagnosis: Abdominal pain pancreatitis Feels better. Abdominal pain improved. Pancreatic enzymes normalized. Tolerating clear liquids. Objective - Vital Signs Vital signs: Vital Signs Temp 97.5 F L 06/20/18 07:00 Pulse 67 06/20/18 07:00 Resp 16 06/20/18 07:00 BP 119/69 06/20/18 07:00 Pulse Ox 96 06/20/18 07:00 Intake & Output 06/19/18 06/20/18 06/20/18 18:59 06:59 18:59 Intake Total 500 699.733 Output Total 250 1650 Balance 250 -950.267 Weight 91.2 kg 91.2 kg Intake: Intake, IV Titration 500 699.733 Amount Mvi, Adult No.4 with Vit 99.733 K 10 ml Trace (Conc-1Ml/ Dose) 1 ml Copper Chloride 0.4 mg Zinc Sulfate 5 mg Sodium Chloride 2.5MEQ/ml Vial 30 meq Magnesium Sulfate gm 0.5 gm In Amino Acid 5 %-D15w+Lytes*E* 1,000 ml @ 175 mls/hr IV .Q5H54M [facility] Rx#:[id number] Sodium Chloride 0.9% 1, 500 600 000 ml @ 50 mls/hr IV . Q20H [facility] Rx#:[id number] Output: Urine 1400 Other 250 250 Other: Voiding Method Urinal # Voids 3 - Exam General appearance: The patient is alert, oriented, in no acute distress. HET: Head is normocephalic and atraumatic. Pupils are equal and reactive. Oropharynx is clear without lesions. Neck: Supple without lymphadenopathy. Trachea midline. Heart: S1 S2. Regular rate and rhythm. Lungs: No crackles or wheezes are heard. Abdomen: Soft, midline wound with ostomy with drainage. Right sided ostomy intact mildly tender, nondistended with bowel sounds. No peritoneal signs. No palpable organomegaly or masses. Extremities: Normal skin color and turgor. No cyanosis, rash, ulceration, clubbing, or edema. Radial and pedal pulses are 2/4 bilaterally. Neurological: No focal deficits. Strength and sensation are grossly intact. - Labs CBC & Chem 7: 06/20/18 07:40 06/20/18 07:30 Labs: Abnormal Lab Results - Last 24 Hours (Table) 06/19/18 06/19/18 06/20/18 Range/Units 18:19 23:40 05:48 RBC (4.30-5.90) m/uL Hgb (13.0-17.5) gm/dL Hct (39.0-53.0) % MCHC (31.0-37.0) g/dL RDW (11.5-15.5) % Carbon Dioxide (22-30) mmol/L BUN (9-20) mg/dL Glucose (74-99) mg/dL POC Glucose (mg/dL) 122 H 226 H 162 H (75-99) mg/dL Total Protein (6.3-8.2) g/dL Albumin (3.5-5.0) g/dL Amylase (30-110) U/L 06/20/18 06/20/18 Range/Units 07:30 07:40 RBC 4.01 L (4.30-5.90) m/uL Hgb 11.2 L (13.0-17.5) gm/dL Hct 36.9 L (39.0-53.0) % MCHC 30.3 L (31.0-37.0) g/dL RDW 17.7 H (11.5-15.5) % Carbon Dioxide 32 H (22-30) mmol/L BUN 26 H (9-20) mg/dL Glucose 141 H (74-99) mg/dL POC Glucose (mg/dL) (75-99) mg/dL Total Protein 5.3 L (6.3-8.2) g/dL Albumin 2.7 L (3.5-5.0) g/dL Amylase 112 H (30-110) U/L Assessment and Plan (1) Acute pancreatitis Narrative/Plan: Multiorgan transplant patient recent surgical repair of abdominal wall enterocutaneous fistulas presents with abdomianl pain secondary to acute pancreatitis with normalization of pancreatic enzymes. Complex surgical history requiring monitoring at tertiary center [facility]. Current Visit: Yes Status: Acute Code(s): K85.90 - ACUTE PANCREATITIS WITHOUT NECROSIS OR INFECTION, UNSP SNOMED Code(s): 219497333 Plan: 1. Supportive measures. 2. TPN as previously prescribed. 3. Patient is scheduled to f/u with [facility] in a few weeks. 4. No further workup from a GI standpoint. Assessment and plan a care discussed with Dr. Willams
[2018-06-20 12:14] LABS: Glucose,Whole Blood 102 mg/dL (75-99)
[2018-06-20] MEDS: SODIUM CHLORIDE 0.9% 1,000 ML IV SCH (12:52)
[2018-06-20] MEDS: FLECAINIDE 50 MG TAB PO SCH (14:03)
[2018-06-20] MEDS: MAGNESIUM SULFATE-D5W PMX 1 GM in DEXTROSE/WATER 1 100ML.BAG IVPB SCH ×2 (14:04→17:58)
[2018-06-20] MEDS: NYSTATIN 100000 UNIT/ML PO SCH ×4 (16:16→22:27)
[2018-06-20] MEDS: [UNRECOGNIZED DRUG - OTHER] PO SCH ×4 (16:16→22:27)
[2018-06-20 16:52] LABS: Glucose,Whole Blood 116 mg/dL (75-99)
--- NOTE | 2018-06-20 17:25 | P.PN ---
Subjective Progress Note Date: 06/20/18 Principal diagnosis: Pancreatitis Patient doing better today. Tolerating clear liquids. His amylase and lipase are much improved. No nausea or vomiting currently. Objective - Vital Signs Vital signs: Vital Signs Temp 98.1 F 06/20/18 14:28 Pulse 70 06/20/18 14:28 Resp 16 06/20/18 14:28 BP 90/56 06/20/18 14:28 Pulse Ox 96 06/20/18 14:28 Intake & Output 06/19/18 06/20/18 06/20/18 18:59 06:59 18:59 Intake Total 500 699.733 480 Output Total 250 1650 Balance 250 -950.267 480 Weight 91.2 kg 91.2 kg Intake: Intake, IV Titration 500 699.733 Amount Mvi, Adult No.4 with Vit 99.733 K 10 ml Trace (Conc-1Ml/ Dose) 1 ml Copper Chloride 0.4 mg Zinc Sulfate 5 mg Sodium Chloride 2.5MEQ/ml Vial 30 meq Magnesium Sulfate gm 0.5 gm In Amino Acid 5 %-D15w+Lytes*E* 1,000 ml @ 175 mls/hr IV .Q5H54M [facility] Rx#:[id number] Sodium Chloride 0.9% 1, 500 600 000 ml @ 50 mls/hr IV . Q20H [facility] Rx#:[id number] Oral 480 Output: Urine 1400 Other 250 250 Other: Voiding Method Urinal # Voids 3 2 - Exam Having: Soft, nondistended, minimal tenderness, ostomy and fistula noted - Labs CBC & Chem 7: 06/20/18 07:40 06/20/18 07:30 Labs: Abnormal Lab Results - Last 24 Hours (Table) 06/19/18 06/19/18 06/20/18 Range/Units 18:19 23:40 05:48 RBC (4.30-5.90) m/uL Hgb (13.0-17.5) gm/dL Hct (39.0-53.0) % MCHC (31.0-37.0) g/dL RDW (11.5-15.5) % Carbon Dioxide (22-30) mmol/L BUN (9-20) mg/dL Glucose (74-99) mg/dL POC Glucose (mg/dL) 122 H 226 H 162 H (75-99) mg/dL Total Protein (6.3-8.2) g/dL Albumin (3.5-5.0) g/dL Amylase (30-110) U/L 06/20/18 06/20/18 06/20/18 Range/Units 07:30 07:40 12:03 RBC 4.01 L (4.30-5.90) m/uL Hgb 11.2 L (13.0-17.5) gm/dL Hct 36.9 L (39.0-53.0) % MCHC 30.3 L (31.0-37.0) g/dL RDW 17.7 H (11.5-15.5) % Carbon Dioxide 32 H (22-30) mmol/L BUN 26 H (9-20) mg/dL Glucose 141 H (74-99) mg/dL POC Glucose (mg/dL) 102 H (75-99) mg/dL Total Protein 5.3 L (6.3-8.2) g/dL Albumin 2.7 L (3.5-5.0) g/dL Amylase 112 H (30-110) U/L 06/20/18 Range/Units 16:37 RBC (4.30-5.90) m/uL Hgb (13.0-17.5) gm/dL Hct (39.0-53.0) % MCHC (31.0-37.0) g/dL RDW (11.5-15.5) % Carbon Dioxide (22-30) mmol/L BUN (9-20) mg/dL Glucose (74-99) mg/dL POC Glucose (mg/dL) 116 H (75-99) mg/dL Total Protein (6.3-8.2) g/dL Albumin (3.5-5.0) g/dL Amylase (30-110) U/L Assessment and Plan (1) Acute pancreatitis Narrative/Plan: Will increase diet to full liquids. Possible discharge tomorrow. Current Visit: Yes Status: Acute Code(s): K85.90 - ACUTE PANCREATITIS WITHOUT NECROSIS OR INFECTION, UNSP SNOMED Code(s): 916700161
[2018-06-20 18:36] LABS: Glucose,Whole Blood 109 mg/dL (75-99)
[2018-06-20] MEDS: CHOLECALCIFEROL 1,000 UNIT TAB PO SCH (20:50)
[2018-06-20] MEDS ORDERED: [UNRECOGNIZED DRUG - REMARK] IV SCH ×7 (21:00)
[2018-06-20] MEDS: traZODone HCL 100 MG TAB PO SCH (21:49)
[2018-06-20] MEDS: clonazePAM 0.5 MG TAB PO SCH (21:50)
[2018-06-20] MEDS: SERTRALINE 50 MG TAB PO SCH (21:50)
[2018-06-20] MEDS: FAT EMULSION 20% 250 ML in EMPTY BAG 1 BAG IV SCH (21:51)
[2018-06-21 00:42] LABS: Glucose,Whole Blood 240 mg/dL (75-99)
[2018-06-21] MEDS: FLECAINIDE 50 MG TAB PO SCH ×2 (00:42→12:45)
[2018-06-21] MEDS: INSULIN ASPART (NovoLOG) 100 UNIT/ML VIAL SQ SCH ×3 (00:42→12:42)
[2018-06-21] MEDS: HYDROCORTISONE SUCCINATE 100 MG/2 ML VIAL IV SCH ×2 (00:42→08:59)
[2018-06-21] MEDS: HYDROmorphone 0.5 MG/0.5 ML SYRINGE IVP PRN ×5 (02:46→15:27)
[2018-06-21] MEDS ORDERED: SODIUM CHLORIDE IV SCH (03:00)
[2018-06-21] MEDS ORDERED: [UNRECOGNIZED DRUG - OTHER] IV SCH (03:00)
[2018-06-21] MEDS ORDERED: MAGNESIUM SULFATE IV SCH (03:00)
[2018-06-21 07:25] LABS: Calcium 8.7 mg/dL (8.4-10.2); Phosphorus 3.4 mg/dL (2.5-4.5); Potassium 4.1 mmol/L (3.5-5.1)
[2018-06-21 07:32] LABS: Glucose,Whole Blood 214 mg/dL (75-99)
[2018-06-21] MEDS: SYMBICORT 160-4.5 MCG INHALER INHALATION SCH (08:26)
[2018-06-21] MEDS: GABAPENTIN 300 MG CAP PO SCH (08:59)
[2018-06-21] MEDS: METOPROLOL TARTRATE 12.5 MG TAB PO SCH (08:59)
[2018-06-21] MEDS: SERTRALINE 100 MG TAB PO SCH (08:59)
[2018-06-21] MEDS: QUEtiapine 25 MG TAB PO SCH (08:59)
[2018-06-21] MEDS: PANTOPRAZOLE 40 MG/10 ML VIAL IV SCH (09:00)
[2018-06-21] MEDS: CALCIUM CARBONATE 500 MG CHEWABLE PO SCH ×3 (09:00→12:42)
[2018-06-21] MEDS: FONDAPARINUX 5 MG/0.4 ML SQ SCH (09:06)
--- NOTE | 2018-06-21 09:56 | P.PN ---
Subjective Progress Note Date: 06/21/18 Principal diagnosis: Pancreatitis Patient feels better today. He is asking for more to eat. Hoping to go home later today. Objective - Vital Signs Vital signs: Vital Signs Temp 98 F 06/21/18 08:54 Pulse 74 06/21/18 08:54 Resp 16 06/21/18 08:54 BP 107/63 06/21/18 08:54 Pulse Ox 96 06/21/18 08:54 Intake & Output 06/20/18 06/21/18 06/21/18 18:59 06:59 18:59 Intake Total 980 2900 Balance 980 2900 Weight 91.2 kg Intake: Intake, IV Titration 1900 Amount Magnesium Sulfate gm 0.5 450 gm Sodium Chloride 2.5MEQ /ml Vial 30 meq In Amino Acid 5%-D15w+Lytes*E* 1, 000 ml @ 175 mls/hr IV . Q5H48M [facility] Rx#:[id number] Magnesium Sulfate gm 0.5 950 gm Sodium Chloride 2.5MEQ /ml Vial 30 meq In Amino Acid 5%-D15w+Lytes*E* 1, 000 ml @ 175 mls/hr IV . Q5H48M [facility] Rx#:[id number] Magnesium Sulfate-D5w Pmx 100 1 gm In Dextrose/Water 1 100ml.bag @ 100 mls/hr IVPB Q1H [facility] Rx#: [id number] Sodium Chloride 0.9% 1, 400 000 ml @ 50 mls/hr IV . Q20H [facility] Rx#:[id number] Oral 980 1000 Other: Voiding Method Urinal Urinal # Voids 2 3 - Exam Abdomen: Soft, nondistended, mild epigastric tenderness, fistula and ostomy noted - Labs CBC & Chem 7: 06/20/18 07:40 06/21/18 06:20 Labs: Abnormal Lab Results - Last 24 Hours (Table) 06/20/18 06/20/18 06/20/18 Range/Units 07:30 07:40 12:03 RBC 4.01 L (4.30-5.90) m/uL Hgb 11.2 L (13.0-17.5) gm/dL Hct 36.9 L (39.0-53.0) % MCHC 30.3 L (31.0-37.0) g/dL RDW 17.7 H (11.5-15.5) % Carbon Dioxide 32 H (22-30) mmol/L BUN 26 H (9-20) mg/dL Glucose 141 H (74-99) mg/dL POC Glucose (mg/dL) 102 H (75-99) mg/dL Total Protein 5.3 L (6.3-8.2) g/dL Albumin 2.7 L (3.5-5.0) g/dL Amylase 112 H (30-110) U/L 06/20/18 06/20/18 06/21/18 Range/Units 16:37 18:21 00:31 RBC (4.30-5.90) m/uL Hgb (13.0-17.5) gm/dL Hct (39.0-53.0) % MCHC (31.0-37.0) g/dL RDW (11.5-15.5) % Carbon Dioxide (22-30) mmol/L BUN (9-20) mg/dL Glucose (74-99) mg/dL POC Glucose (mg/dL) 116 H 109 H 240 H (75-99) mg/dL Total Protein (6.3-8.2) g/dL Albumin (3.5-5.0) g/dL Amylase (30-110) U/L 06/21/18 06/21/18 Range/Units 06:20 07:21 RBC (4.30-5.90) m/uL Hgb (13.0-17.5) gm/dL Hct (39.0-53.0) % MCHC (31.0-37.0) g/dL RDW (11.5-15.5) % Carbon Dioxide (22-30) mmol/L BUN 32 H (9-20) mg/dL Glucose 159 H (74-99) mg/dL POC Glucose (mg/dL) 214 H (75-99) mg/dL Total Protein (6.3-8.2) g/dL Albumin (3.5-5.0) g/dL Amylase (30-110) U/L Assessment and Plan (1) Acute pancreatitis Narrative/Plan: Increase diet to soft. Possible discharge later today. Current Visit: Yes Status: Acute Code(s): K85.90 - ACUTE PANCREATITIS WITHOUT NECROSIS OR INFECTION, UNSP SNOMED Code(s): 576357732
[2018-06-21] MEDS: TACROLIMUS 1 MG CAP PO SCH (11:06)
[2018-06-21] MEDS: NYSTATIN 100000 UNIT/ML PO SCH ×2 (11:06→12:42)
[2018-06-21] MEDS: [UNRECOGNIZED DRUG - OTHER] PO SCH ×2 (11:06→12:42)
[2018-06-21] MEDS: SODIUM CHLORIDE 0.9% 1,000 ML IV SCH (11:08)
[2018-06-21 12:01] LABS: Glucose,Whole Blood 119 mg/dL (75-99)
--- NOTE | 2018-06-21 12:14 | PN ---
PROGRESS NOTE DATE OF SERVICE: 06/20/2018 PRESENTING COMPLAINT: Abdominal pain. INTERVAL HISTORY: This patient was seen by me yesterday. Computers were down; hence I could not dictate. Patient is status post four-organ transplant, presented with recurrent acute severe pancreatitis, much improved. Did tolerate clear liquids. Bags are having good output. Dose of steroid was cut back. The patient did sit up, out of bed. REVIEW OF SYSTEMS: Done for constitutional, cardiovascular, GI, pulmonary; relevant findings as above. CURRENT MEDICATIONS: Reviewed. They include IV Solu-Cortef. PHYSICAL EXAMINATION: Temperature 98.1, pulse 70, respiration 16, blood pressure 98/56, pulse ox 96% on room air. GENERAL APPEARANCE: Lying in bed, more awake. EYES: Pupils equal. Conjunctivae pale. NECK: JVD not raised. Mass not palpable. RESPIRATORY: Effort normal. LUNGS: Diminished breath sounds. CARDIOVASCULAR: First and second sounds normal. No edema. ABDOMEN: Has got a bag over the fistula site and ileostomy bag with liquid stools. Liver and spleen not palpable. Minimal tenderness. No guarding or rigidity. Abdomen is soft. PSYCHIATRY: Alert and oriented x3. Mood and affect less anxious-appearing. INVESTIGATIONS: White count 9.7, hemoglobin 11.2, potassium 4.2, BUN 26, creatinine 0.88. Lipase is normal. ASSESSMENT: 1. Acute severe recurrent pancreatitis with clinical and biochemical improvement. 2. Chronic obstructive pulmonary disease in an ex-smoker. 3. Four-organ transplant in 2002, including small bowel, pancreas, duodenum, stomach, being followed at [facility] and [facility]. 4. Multiple abdominal fistulas with drainage bag in place, being followed at [facility]. 5. Gastroesophageal reflux disease. 6. Chronic gastroparesis. 7. Chronic mesenteric vein thrombosis, for which patient is on anticoagulation. 8. Immunosuppressed state. 9. Chronic kidney disease, stage III, from nephrosclerosis. 10.Ileostomy bag. PLAN: Care was discussed at length. Will keep the patient on clear liquids. Patient should be able to be discharged tomorrow. He is due to go back to [facility] this coming Saturday. Care was also discussed with Dr. Linn. MMSILVIAL / CRISTELAN: [id number] /
[2018-06-21 14:41] VITALS: BP 122/76; PULSE 69; TEMP 98.1
[2018-06-21] MEDS ORDERED: [UNRECOGNIZED DRUG - REMARK] IV SCH ×7 (21:00)
--- NOTE | 2018-06-21 23:36 | DS ---
DISCHARGE SUMMARY DATE OF ADMISSION: June 18, 2018. DATE OF DISCHARGE: June 21, 2018. FINAL DIAGNOSES: 1. Acute severe recurrent pancreatitis, POA. 2. Chronic obstructive pulmonary disease in an ex-smoker. 3. 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 4. Multiple abdominal fistulas with drainage bags in place, being followed at [facility]. 5. Gastroesophageal reflux disease. 6. Chronic gastroparesis. 7. Chronic mesenteric vein thrombosis for which patient is on anticoagulation. 8. Immunosuppressed stage. 9. Chronic kidney disease stage 3 from nephrosclerosis. 10.Ileostomy bag. HOSPITAL COURSE: The patient was just at the [facility] for acute pancreatitis,there for a week, just home for a few days. Yet again presented for the same with acute abdominal pain. The patient's lipase is up to 3600. With conservative management, did come down. By the time of discharge, patient is tolerating a diet. The patient is put on stress dose of steroids. We were contacted from the transplant team from [facility], but the patient did not want to get transferred. The patient due to go back there on Saturday. Doing much better today. PHYSICAL EXAMINATION: Temperature 98.1, pulse 69, respiration 16, blood pressure 122/76. ABDOMEN: Soft, minimal tenderness ileostomy and fistula bag in place. Psych: AO x3. INVESTIGATION: White count 9.7, hemoglobin 11.2, potassium 4.2, creatinine 0.88. Lipase is normal. DISCHARGE MEDICATIONS: 1. Ferrous gluconate 325 p.o. b.i.d. 2. Zoloft 100 mg p.o. daily. 3. Bactrim DS half a tablet Saturday, Saturday and Saturday. 4. ProAir HFA 2 puffs q.6h. 5. Trazodone 200 mg q.h.s. 6. Carafate 1 g p.o. b.i.d. 7. Symbicort 160/4.5, 2 puffs b.i.d. 8. Methadone 10 mg p.o. daily. 9. Seroquel 25 mg p.o. daily. 10.Tambocor 150 mg p.o. q.12. 11.Cortef 30 mg p.o. b.i.d. 12.Mycostatin 500,000 units p.o. q.i.d. 13.Klonopin 0.25 p.o. q.h.s. 14.Mathews 10 1 tablet p.o. t.i.d. p.r.n. 15.Tums 500 mg p.o. q.i.d. 16.Vitamin D3 5000 units p.o. Saturday, Saturday and Saturday. 17.Atrovent HFA 2 puffs b.i.d. p.r.n. 18.Methadone 5 mg q.h.s. 19.Arixtra 5 mg subcu daily. 20.Metoprolol tartrate 12.5 p.o. b.i.d. p.r.n. 21.Protonix 40 mg p.o. b.i.d. 22.Zoloft 50 mg at bedtime. 23.Neurontin 600 mg t.i.d. 24.Prograf 5 mg p.o. b.i.d. 25.TPN to continue. FOLLOWUP: Follow up with Dr. Zhao in 3 days. The patient is due to leave for [facility] tomorrow. His is driving him. specialty infusion is involved. Copy to Dr. Zhao. MMODL / IJN: [id number] /
[2018-06-22] MEDS ORDERED: SODIUM CHLORIDE IV SCH (03:00)
[2018-06-22] MEDS ORDERED: MAGNESIUM SULFATE IV SCH (03:00)
[2018-06-22] MEDS ORDERED: [UNRECOGNIZED DRUG - OTHER] IV SCH (03:00)
[2018-06-22] MEDS ORDERED: [UNRECOGNIZED DRUG - REMARK] IV SCH ×7 (21:00)
[2018-06-23] MEDS ORDERED: MAGNESIUM SULFATE IV SCH (03:00)
[2018-06-23] MEDS ORDERED: [UNRECOGNIZED DRUG - OTHER] IV SCH (03:00)
[2018-06-23] MEDS ORDERED: SODIUM CHLORIDE IV SCH (03:00)
[2018-06-23] MEDS ORDERED: [UNRECOGNIZED DRUG - REMARK] IV SCH ×7 (21:00)
[2018-06-24] MEDS ORDERED: MAGNESIUM SULFATE IV SCH (03:00)
[2018-06-24] MEDS ORDERED: SODIUM CHLORIDE IV SCH (03:00)
[2018-06-24] MEDS ORDERED: [UNRECOGNIZED DRUG - OTHER] IV SCH (03:00)
== END 2018-06-21 16:09 | disposition home or self-care (01) | DRG 438 ==
LOC: EC 03:23 → 4MS4W 04:26 → 4SSUR 17:41
PROVIDERS: ADMIT Hospitalist; ATTEND Hospitalist
PROC: 3E0336Z Introduction of Nutritional Substance into Peripheral Vein, Percutaneous Approach (ICD-10-PCS; principal; 2018-06-19)
DX: T86.898 Other complications of other transplanted tissue (principal); K85.90 Acute pancreatitis without necrosis or infection, unspecified; I81 Portal vein thrombosis; Z94.82 Intestine transplant status; K63.2 Fistula of intestine; K86.1 Other chronic pancreatitis; D64.9 Anemia, unspecified; G47.33 Obstructive sleep apnea (adult) (pediatric); I12.9 Hypertensive chronic kidney disease with stage 1 through stage 4 chronic kidney disease, or unspecified chronic kidney disease; I48.0 Paroxysmal atrial fibrillation; K21.9 Gastro-esophageal reflux disease without esophagitis; N18.3 Chronic kidney disease, stage 3 (moderate); J44.9 Chronic obstructive pulmonary disease, unspecified; K31.84 Gastroparesis; F32.9 Major depressive disorder, single episode, unspecified; F41.9 Anxiety disorder, unspecified; Z94.89 Other transplanted organ and tissue status; Y83.0 Surgical operation with transplant of whole organ as the cause of abnormal reaction of the patient, or of later complication, without mention of misadventure at the time of the procedure; Z93.2 Ileostomy status; Z90.49 Acquired absence of other specified parts of digestive tract; Z79.899 Other long term (current) drug therapy; Z79.51 Long term (current) use of inhaled steroids; Z79.01 Long term (current) use of anticoagulants; Z88.5 Allergy status to narcotic agent; Z87.891 Personal history of nicotine dependence
CPT/HCPCS: 36415; 80048; 80053; 82150; 82330; 83605; 83690; 83735; 84100; 84478; 85025; 94640; 96361; 96372; 96374; 96375; 96376; 99285

== ENCOUNTER 2018-07-04 10:13 | Inpatient (IN) | payer MEDICARE, BC ==
[2018-07-04] MEDS ORDERED: HYDROmorphone 1 MG/ML 1 ML SYRINGE IVP STA ×2 (10:52→12:03)
[2018-07-04] MEDS ORDERED: PANTOPRAZOLE 40 MG/10 ML VIAL IVP STA (10:52)
[2018-07-04] MEDS ORDERED: ONDANSETRON 4 MG/2 ML VIAL IVP STA (10:52)
[2018-07-04] MEDS ORDERED: SODIUM CHLORIDE 0.9% 1,000 ML IV STA ×2 (10:52)
--- NOTE | 2018-07-04 11:16 | ED ---
Abdominal Pain HPI - General Chief Complaint: Abdominal Pain Stated Complaint: Pancreatitis Time Seen by Provider: 07/04/18 10:22 Source: patient Mode of arrival: wheelchair Limitations: no limitations - History of Present Illness MD Complaint: abdominal pain (epigastric) -: days(s) Location: periumbilical, epigastric Radiation: epigastric Migration to: bilateral flank Severity: moderate Severity scale (1-10): 7 Quality: stabbing, aching Consistency: constant Improves With: nothing Worsens With: eating Context: other (pancreatitis) Associated Symptoms: nausea, vomiting - Related Data Home Medications Medication Instructions Recorded Confirmed Ferrous Gluconate 325 mg PO BID 09/02/13 07/04/18 Sertraline [Zoloft] 100 mg PO DAILY 09/02/13 07/04/18 Sulfamethoxazole/Trimethoprim 0.5 tab PO MOWEFR 08/02/16 07/04/18 [Bactrim DS 800-160 mg] Albuterol Sulfate [Proair Hfa] 2 puff INHALATION RT-Q6H PRN 12/19/16 07/04/18 traZODone HCL 200 mg PO HS 12/19/16 07/04/18 Sucralfate [Carafate] 1 gm PO BID 03/23/17 07/04/18 Budesonide/Formoterol Fumarate 2 puff INHALATION RT-BID 05/17/17 07/04/18 [Symbicort 160-4.5 Mcg Inhaler] Methadone [Dolophine] 10 mg PO QAM 05/17/17 07/04/18 QUEtiapine [SEROquel] 25 mg PO DAILY 07/23/17 07/04/18 Flecainide Acetate [Tambocor] 150 mg PO Q12H 12/12/17 07/04/18 Hydrocortisone [Cortef] 30 mg PO BID 12/12/17 07/04/18 Nystatin 100,000 Unit/ml Susp 500,000 unit PO QID 12/12/17 07/04/18 [Mycostatin Oral Susp] clonazePAM [Klonopin ODT Wafer] 0.25 mg PO HS 12/12/17 07/04/18 HYDROcodone/APAP 10-325MG [[place] 1 tab PO TID PRN 01/10/18 07/04/18 10-325] Calcium Carbonate [Tums] 500 mg PO QID 01/22/18 07/04/18 Cholecalciferol [Vitamin D3] 5,000 unit PO MOWEFR 01/22/18 07/04/18 Ipratropium [place] [Atrovent Hfa] 2 puff INHALATION RT-BID PRN 01/22/18 07/04/18 Methadone [Dolophine] 5 mg PO HS 01/22/18 07/04/18 Fondaparinux Sodium [Arixtra] 5 mg SQ DAILY 02/13/18 07/04/18 Metoprolol Tartrate 12.5 mg PO BID PRN 05/17/18 07/04/18 Pantoprazole [Protonix] 40 mg PO BID 05/17/18 07/04/18 Sertraline [Zoloft] 50 mg PO HS 05/17/18 07/04/18 Gabapentin 600 mg PO TID 06/18/18 07/04/18 Tacrolimus [Prograf] 5 mg PO BID 06/18/18 07/04/18 Tpn 1 dose IV DAILY@1800 06/18/18 07/04/18 Allergies Allergy/AdvReac Type Severity Reaction Status Date / Time aspirin Allergy GI Verified 07/04/18 10:53 BLEEDING , ABDOMINAL PAIN heparin AdvReac abdominal Verified 07/04/18 10:53 pain , GI bleeding ketorolac tromethamine AdvReac migraines Verified 07/04/18 10:53 [From Toradol] morphine AdvReac Itching Verified 07/04/18 10:53 Review of Systems ROS Statement: Those systems with pertinent positive or pertinent negative responses have been documented in the HPI. ROS Other: All systems not noted in ROS Statement are negative. 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 and the patient ultimately had multi-organ transplantation including the stomach, small bowel, duodenum and pancreas 2002, post operative complications including 2 dehisciences and developed fistula twice-has ileostomy and an abdominal wound drainage bag, recurrent pancreatitis, history of adrenal insufficiency kevin ntained on Cortef, immunosuppressed, chronic mesenteric vein thrombosis, 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 History of Any Multi-Drug Resistant Organisms: C-DIFF, MRSA Date of last positivie culture/infection: MRSA sputum 05/29/17 MDRO Source:: C-diff stool 05/11/18 Past Surgical History: Bowel Resection, Cholecystectomy Additional Past Surgical History / Comment(s): Multivisceral organ transplant including bowel, doudenum,pancreas, and stomach at [facility]- follows thru [facility],spleen removed, left knee arthrotomy, EGD, colonoscopy, ERCP with insertion of a pancreatic duct stent- since removed . ileostomy in october 2017, dehised x 2, repair of fistula, second fistula appeared may 01, 2018, pt currently has ostomy bag in which fistula drained into, colonized c-diff, MRSA in sputum a year ago, as infant valve surgery. Past Anesthesia/Blood Transfusion Reactions: No Reported Reaction Additional Past Anesthesia/Blood Transfusion Reaction / Comment(s): STATES R/T TO MULTIPLE SX HE REQUIRES A LOT OF MEDICATION for anesthesia. He has had multiple blood transfusions without reaction. Past Psychological History: Anxiety, Depression Smoking Status: Current every day smoker Past Alcohol Use History: None Reported Past Drug Use History: None Reported - Past Family History Mother History Unknown: Yes Additional Family Medical History / Comment(s): pt is adopted, does not know any hx Father History Unknown: Yes Additional Family Medical History / Comment(s): pt is adopted, does not know any hx General Exam Limitations: no limitations General appearance: alert, in no apparent distress Head exam: Present: atraumatic, normocephalic, normal inspection Eye exam: Present: normal appearance, PERRL, EOMI. Absent: scleral icterus, conjunctival injection, periorbital swelling ENT exam: Present: normal exam, mucous membranes moist Neck exam: Present: normal inspection. Absent: tenderness, meningismus, lymphadenopathy Respiratory exam: Present: normal lung sounds bilaterally. Absent: respiratory distress, wheezes, rales, rhonchi, stridor Cardiovascular Exam: Present: regular rate, normal rhythm, normal heart sounds. Absent: systolic murmur, diastolic murmur, rubs, gallop, clicks GI/Abdominal exam: Present: distended, tenderness, normal bowel sounds. Absent: guarding, rebound, rigid Extremities exam: Present: normal inspection, full ROM, normal capillary refill. Absent: tenderness, pedal edema, joint swelling, calf tenderness Back exam: Present: normal inspection Neurological exam: Present: alert, oriented X3, CN II-XII intact Psychiatric exam: Present: normal affect, normal mood Skin exam: Present: warm, dry, intact, normal color. Absent: rash Course Vital Signs 07/04/18 10:17 Temperature 97.8 F Pulse Rate 89 Respiratory 18 Rate Blood Pressure 116/69 O2 Sat by Pulse 98 Oximetry - Reevaluation(s) Reevaluation #1: 07/04/18 12:34 medical record is reviewed Reevaluation #2: 07/04/18 12:34 patient continues with pain Reevaluation #3: 07/04/18 12:35 patient has pain controlled Reevaluation #4: 07/04/18 12:[address] Sen Duran, aware of patients stay and questions answered - Consultations Consultation #1: spoke w Sound Dr Goncalves re admission and is agreeable Medical Decision Making - Medical Decision Making 48 male to the ED for eval of pancreatitis, ok for admission for severe pancreatitis - Lab Data Result diagrams: 07/04/18 11:03 07/04/18 11:03 Lab Results 07/04/18 07/04/18 07/04/18 Range/Units 11:03 11:03 11:03 WBC 14.4 H (3.8-10.6) k/uL RBC 4.54 (4.30-5.90) m/uL Hgb 11.9 L (13.0-17.5) gm/dL Hct 39.9 (39.0-53.0) % MCV 87.7 (80.0-100.0) fL MCH 26.1 (25.0-35.0) pg MCHC 29.8 L (31.0-37.0) g/dL RDW 17.3 H (11.5-15.5) % Plt Count 201 (150-450) k/uL Neutrophils % 80 % Lymphocytes % 10 % Monocytes % 8 % Eosinophils % 0 % Basophils % 0 % Neutrophils # 11.5 H (1.3-7.7) k/uL Lymphocytes # 1.4 (1.0-4.8) k/uL Monocytes # 1.1 H (0-1.0) k/uL Eosinophils # 0.1 (0-0.7) k/uL Basophils # 0.0 (0-0.2) k/uL Hypochromasia Marked Anisocytosis Slight Sodium 138 (137-145) mmol/L Potassium 4.7 (3.5-5.1) mmol/L Chloride 100 (98-107) mmol/L Carbon Dioxide 27 (22-30) mmol/L Anion Gap 11 mmol/L BUN 64 H (9-20) mg/dL Creatinine 1.35 H (0.66-1.25) mg/dL Est GFR (CKD-EPI)AfAm 70 (>60 ml/min/1.73 sqM) Est GFR (CKD-EPI)NonAf 61 (>60 ml/min/1.73 sqM) Glucose 169 H (74-99) mg/dL Plasma Lactic Acid [place] 1.6 (0.7-2.0) mmol/L Calcium 8.9 (8.4-10.2) mg/dL Total Bilirubin 0.3 (0.2-1.3) mg/dL AST 29 (17-59) U/L ALT 40 (21-72) U/L Alkaline Phosphatase 180 H (38-126) U/L Troponin I (0.000-0.034) ng/mL Total Protein 6.3 (6.3-8.2) g/dL Albumin 3.4 L (3.5-5.0) g/dL Amylase 803 H* (30-110) U/L Lipase 3832 H (23-300) U/L Urine Color Urine Appearance (Clear) Urine pH (5.0-8.0) Ur Specific [place] (1.001-1.035) Urine Protein (Negative) Urine Glucose (UA) (Negative) Urine Ketones (Negative) Urine Blood (Negative) Urine Nitrite (Negative) Urine Bilirubin (Negative) Urine Urobilinogen (<2.0) mg/dL Ur Leukocyte Esterase (Negative) 07/04/18 07/04/18 Range/Units 11:03 11:03 WBC (3.8-10.6) k/uL RBC (4.30-5.90) m/uL Hgb (13.0-17.5) gm/dL Hct (39.0-53.0) % MCV (80.0-100.0) fL MCH (25.0-35.0) pg MCHC (31.0-37.0) g/dL RDW (11.5-15.5) % Plt Count (150-450) k/uL Neutrophils % % Lymphocytes % % Monocytes % % Eosinophils % % Basophils % % Neutrophils # (1.3-7.7) k/uL Lymphocytes # (1.0-4.8) k/uL Monocytes # (0-1.0) k/uL Eosinophils # (0-0.7) k/uL Basophils # (0-0.2) k/uL Hypochromasia Anisocytosis Sodium (137-145) mmol/L Potassium (3.5-5.1) mmol/L Chloride (98-107) mmol/L Carbon Dioxide (22-30) mmol/L Anion Gap mmol/L BUN (9-20) mg/dL Creatinine (0.66-1.25) mg/dL Est GFR (CKD-EPI)AfAm (>60 ml/min/1.73 sqM) Est GFR (CKD-EPI)NonAf (>60 ml/min/1.73 sqM) Glucose (74-99) mg/dL Plasma Lactic Acid [place] (0.7-2.0) mmol/L Calcium (8.4-10.2) mg/dL Total Bilirubin (0.2-1.3) mg/dL AST (17-59) U/L ALT (21-72) U/L Alkaline Phosphatase (38-126) U/L Troponin I <0.012 (0.000-0.034) ng/mL Total Protein (6.3-8.2) g/dL Albumin (3.5-5.0) g/dL Amylase (30-110) U/L Lipase (23-300) U/L Urine Color Yellow Urine Appearance Clear (Clear) Urine pH 5.0 (5.0-8.0) Ur Specific [place] 1.020 (1.001-1.035) Urine Protein Trace H (Negative) Urine Glucose (UA) Negative (Negative) Urine Ketones Negative (Negative) Urine Blood Negative (Negative) Urine Nitrite Negative (Negative) Urine Bilirubin Negative (Negative) Urine Urobilinogen <2.0 (<2.0) mg/dL Ur Leukocyte Esterase Negative (Negative) - Radiology Data Radiology results: report reviewed (XR kub is negative for acute disease), image reviewed Disposition Clinical Impression: Pancreatitis, Pancreatitis of pancreas transplant, Dehydration Disposition: ADMITTED IP TO THIS HOSP Condition: Fair Is patient prescribed a controlled substance at d/c from ED?: No Referrals: Ras Zhao MD [Primary Care Provider] - 1-2 days
[2018-07-04 11:28] LABS: Appearance,Urine Clear (Clear); Bilirubin,Urine Negative (Negative); Blood,Urine Negative (Negative); Color,Urine Yellow; Glucose,Urine (UA) Negative (Negative); Ketones,Urine Negative (Negative); Leukocyte Esterase,Urine Negative (Negative); Nitrite,Urine Negative (Negative); Protein,Urine Trace (Negative); Urobilinogen,Urine <2.0 mg/dL (<2.0)
[2018-07-04 11:31] LABS: Anisocytosis Slight; Basophils % (A) 0 %; Eosinophils # (A) 0.1 k/uL (0-0.7); Eosinophils % (A) 0 %; HCT 39.9 % (39.0-53.0); HGB 11.9 gm/dL (13.0-17.5); Hypochromasia Marked; Lymphocytes # (A) 1.4 k/uL (1.0-4.8); Lymphocytes % (A) 10 %; MCH 26.1 pg (25.0-35.0); MCHC 29.8 g/dL (31.0-37.0); MCV 87.7 fL (80.0-100.0); Mean Platelet Volume 12.3; Monocytes # (A) 1.1 k/uL (0-1.0); Monocytes % (A) 8 %; Neutrophils # (A) 11.5 k/uL (1.3-7.7); Neutrophils % (A) 80 %; Platelet Count 201 k/uL (150-450); RBC 4.54 m/uL (4.30-5.90); RDW 17.3 % (11.5-15.5); WBC 14.4 k/uL (3.8-10.6)
[2018-07-04 11:36] LABS: Albumin 3.4 g/dL (3.5-5.0); Calcium 8.9 mg/dL (8.4-10.2); Potassium 4.7 mmol/L (3.5-5.1); Total Bilirubin 0.3 mg/dL (0.2-1.3); Total Protein 6.3 g/dL (6.3-8.2)
[2018-07-04] MEDS ORDERED: HYDROmorphone 1 MG/ML 1 ML SYRINGE IVP PRN (12:26)
[2018-07-04] MEDS ORDERED: ONDANSETRON 4 MG/2 ML VIAL IVP PRN (12:26)
--- NOTE | 2018-07-04 12:34 | XR ---
EXAMINATION TYPE: XR abdomen acute w cxr DATE OF EXAM: 07/04/2018 COMPARISON: NONE HISTORY: Abdominal pain and chest pain. TECHNIQUE: Supine, upright, and left side down lateral decubitus views of the abdomen are obtained. FINDINGS: Chest: No focal consolidation, pleural effusion or pneumothorax. Cardiomediastinal silhouet te is upper limits of normal. Osseous structures are grossly intact. ABDOMEN: Air-fluid levels are seen within the upper abdomen. Surgical sutures are noted within the le ft mid abdomen. No dilated large or small bowel is seen. Degenerative changes are present at the lumb osacral junction. No suspicious calcification in the abdomen. IMPRESSION: 1. No acute intrathoracic process. 2. Abdominal ileus is suspected as few air-fluid levels are seen with no dilated bowel.
[2018-07-04] MEDS ORDERED: SULFAMETHOX-TMP 800-160MG 1 EACH TAB PO SCH (15:00)
[2018-07-04] MEDS ORDERED: ACETAMINOPHEN TAB 325 MG TAB PO PRN (15:03)
[2018-07-04] MEDS ORDERED: NALOXONE 0.4 MG/ML 1 ML VIAL IV PRN (15:03)
[2018-07-04] MEDS ORDERED: HYDROcodone/APAP 5-325MG 1 EACH TAB PO PRN (15:03)
[2018-07-04 15:38] VITALS: BMI 25.7
[2018-07-04] MEDS: HYDROmorphone 1 MG/ML 1 ML SYRINGE IVP PRN ×3 (15:38→22:06)
[2018-07-04] MEDS: CLOTRIMAZOLE TROCHE 10 MG TROCHE PO SCH ×3 (15:42→23:02)
[2018-07-04] MEDS: GABAPENTIN 300 MG CAP PO SCH ×2 (15:48→21:12)
[2018-07-04] MEDS ORDERED: IPRATROPIUM-ALBUTEROL 3 ML NEB INHALATION PRN (16:00)
--- NOTE | 2018-07-04 16:02 | P.HPIM ---
History of Present Illness H&P Date: 07/04/18 Chief Complaint: Acute pancreatitis 48-year-old male with significant PMH of COPD, atrial fibrillation, DVT, history of multivisceral organ transplant being seen at [facility] presents to the ED for abdominal pain. Patient reports that the pain started this morning. Pain is constant. Pain is 8 out of 10 in severity. Patient describes the pain as needlelike in quality. Pain does not radiate. Patient was previously admitted on 06/18/2018 for pancreatitis. Patient states that the pain is similar to that he experienced during his previous admission. He denies any nausea or vomiting at this time. Of note, patient complains of a frontal headache that is described as bandlike. He denies any lower extremity edema, fever, chills, cough, chest pain, shortness of breath, palpitations, changes in urination or bowel habits. Patient is currently on TPN. He does eat right does not absorb many nutrients through the gut, has colostomy that is usually full of watery diarrhea. In the ED, CBC showed a leukocytosis of 14.4. Patient was anemic with a hemoglobin of 11.9. CMP showed a BUN of 64, creatinine of 1.35. Glucose of 169. Alkaline phosphatase was 180. Initial troponin was less than 0.012. Amylase was 803 and lipase was 3832. Serum alcohol was negative. KUB showed abdominal ileus. Patient is admitted for pancreatitis. 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 History of Any Multi-Drug Resistant Organisms: C-DIFF, MRSA Date of last positivie culture/infection: MRSA sputum 05/29/17 MDRO Source:: C-diff stool 05/11/18 Past Surgical History: Bowel Resection, Cholecystectomy Additional Past Surgical History / Comment(s): Multivisceral organ transplant including bowel, doudenum,pancreas, and stomach at [facility]- follows thru [facility],spleen removed, left knee arthrotomy, EGD, colonoscopy, ERCP with insertion of a pancreatic duct stent- since removed . ileostomy in october 2017, dehised x 2, repair of fistula, second fistula appeared may 01, 2018, pt currently has ostomy bag in which fistula drained into, colonized c-diff, MRSA in sputum a year ago, as infant valve surgery, varghese catheter. Past Anesthesia/Blood Transfusion Reactions: No Reported Reaction Additional Past Anesthesia/Blood Transfusion Reaction / Comment(s): STATES R/T TO MULTIPLE SX HE REQUIRES A LOT OF MEDICATION for anesthesia. He has had multiple blood transfusions without reaction. Smoking Status: Light tobacco smoker - Past Family History Mother History Unknown: Yes Additional Family Medical History / Comment(s): pt is adopted, does not know any hx Father History Unknown: Yes Additional Family Medical History / Comment(s): Pt is adopted and knows no history. Medications and Allergies Home Medications Medication Instructions Recorded Confirmed Type Ferrous Gluconate 325 mg PO BID 09/02/13 07/04/18 History Sertraline [Zoloft] 100 mg PO DAILY 09/02/13 07/04/18 History Sulfamethoxazole/Trimethoprim 0.5 tab PO MOWEFR 08/02/16 07/04/18 History [Bactrim DS 800-160 mg] Albuterol Sulfate [Proair Hfa] 2 puff INHALATION RT-Q6H PRN 12/19/16 07/04/18 History traZODone HCL 200 mg PO HS 12/19/16 07/04/18 History Sucralfate [Carafate] 1 gm PO BID 03/23/17 07/04/18 History Budesonide/Formoterol Fumarate 2 puff INHALATION RT-BID 05/17/17 07/04/18 History [Symbicort 160-4.5 Mcg Inhaler] Methadone [Dolophine] 10 mg PO QAM 05/17/17 07/04/18 History QUEtiapine [SEROquel] 25 mg PO DAILY 07/23/17 07/04/18 History Flecainide Acetate [Tambocor] 150 mg PO Q12H 12/12/17 07/04/18 History Hydrocortisone [Cortef] 30 mg PO BID 12/12/17 07/04/18 History Nystatin 100,000 Unit/ml Susp 500,000 unit PO QID 12/12/17 07/04/18 History [Mycostatin Oral Susp] clonazePAM [Klonopin ODT Wafer] 0.25 mg PO HS 12/12/17 07/04/18 History HYDROcodone/APAP 10-325MG [[place] 1 tab PO TID PRN 01/10/18 07/04/18 History 10-325] Calcium Carbonate [Tums] 500 mg PO QID 01/22/18 07/04/18 History Cholecalciferol [Vitamin D3] 5,000 unit PO MOWEFR 01/22/18 07/04/18 History Ipratropium [place] [Atrovent Hfa] 2 puff INHALATION RT-BID PRN 01/22/18 07/04/18 History Methadone [Dolophine] 5 mg PO HS 01/22/18 07/04/18 History Fondaparinux Sodium [Arixtra] 5 mg SQ DAILY 02/13/18 07/04/18 History Metoprolol Tartrate 12.5 mg PO BID PRN 05/17/18 07/04/18 History Pantoprazole [Protonix] 40 mg PO BID 05/17/18 07/04/18 History Sertraline [Zoloft] 50 mg PO HS 05/17/18 07/04/18 History Gabapentin 600 mg PO TID 06/18/18 07/04/18 History Tacrolimus [Prograf] 5 mg PO BID 06/18/18 07/04/18 History Tpn 1 dose IV DAILY@1800 06/18/18 07/04/18 History Allergies Allergy/AdvReac Type Severity Reaction Status Date / Time aspirin Allergy GI Verified 07/04/18 10:53 BLEEDING , ABDOMINAL PAIN heparin AdvReac abdominal Verified 07/04/18 10:53 pain , GI bleeding ketorolac tromethamine AdvReac migraines Verified 07/04/18 10:53 [From Toradol] morphine AdvReac Itching Verified 07/04/18 10:53 Physical Exam Vitals: Vital Signs Temp Pulse Pulse Resp BP BP Pulse Ox 07/04/18 14:43 97.8 F 86 16 117/72 97 07/04/18 12:56 97.8 F 81 19 113/67 97 07/04/18 10:17 97.8 F 89 18 116/69 98 Intake and Output 07/04/18 07/04/18 07/04/18 06:59 14:59 22:59 Other: # Voids 1 Weight 90.718 kg General: [non toxic], [appears in distress from pain], [appears at stated age] Derm: [warm], [dry] Head: [atraumatic], [normocephalic], [symmetric] Eyes: [EOMI], [no lid lag], [anicteric sclera] Mouth: [no lip lesion], [mucus membranes moist] Cardiovascular: [S1S2 reg], [no murmur], [positive DP pulse bilateral], Lungs: [CTA bilateral], [no rhonchi, no rales] , [no accessory muscle use] Abdominal: [soft], [tenderness over the epigastric area without radiation], [no guarding], [no appreciable organomegaly], [colostomy bag intact] Ext: [no gross muscle atrophy], [no edema], [no contractures] Neuro: [no focal neuro deficits] Psych: [Alert], [oriented], [appropriate affect] Results CBC & Chem 7: 07/04/18 11:03 07/04/18 11:03 Labs: Abnormal Lab Results - Last 24 Hours (Table) 07/04/18 07/04/18 07/04/18 Range/Units 11:03 11:03 11:03 WBC 14.4 H (3.8-10.6) k/uL Hgb 11.9 L (13.0-17.5) gm/dL MCHC 29.8 L (31.0-37.0) g/dL RDW 17.3 H (11.5-15.5) % Neutrophils # 11.5 H (1.3-7.7) k/uL Monocytes # 1.1 H (0-1.0) k/uL BUN 64 H (9-20) mg/dL Creatinine 1.35 H (0.66-1.25) mg/dL Glucose 169 H (74-99) mg/dL Alkaline Phosphatase 180 H (38-126) U/L Albumin 3.4 L (3.5-5.0) g/dL Amylase 803 H* (30-110) U/L Lipase 3832 H (23-300) U/L Urine Protein Trace H (Negative) Thrombosis Risk Factor Assmnt - Choose All That Apply Each Factor Represents 1 point: Age 41-60 years Each Risk Factor Represents 2 Points: Patient confined to bed Each Risk Factor Represents 3 Points: 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 Acute pancreatitis 2. Atrial fibrillation 3. Acute kidney injury 4. COPD 5. History of multi-visceral organ transplant 6. History of DVT 7. DVT and GI prophylaxis 1. Unknown etiology, patient denies any alcohol use. Amylase 803, lipase 3832. T bili, AST and ALT are within normal limits. Alkaline phosphatase is slightly elevated at 180. KUB shows possible ileus. Will make patient nothing by mouth. Pain control with Dilaudid 2 mg IV every 3 hours. Zofran as needed for nausea or vomiting. Continue normal saline at 100 mL per hour. Protonix 40 mg IV daily. Will follow gastroenterology recommendations. 2. Rate controlled with metoprolol and Flecainide. Continue fondaparinux. Telemetry monitoring. 3. BUN 64, creatinine 1.35. Likely secondary to dehydration. Continue normal saline at 100 mL/h. Daily BMP. Consider additional workup if creatinine continues to trend up. 4. DuoNeb 4 times a day as needed for shortness of breath or wheezing. Oxygen per nasal cannula to maintain an O2 saturation greater than 92%. 5. Patient reports good follow-up at [facility]. Continue tacrolimus 5 mg by mouth twice a day. 6. Continue fondaparinux. We'll need to bring from home. 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 7. Continue fondaparinux. Protonix 40 g IV daily. Patient admitted for pancreatitis. He is pending clinical improvement. Gastroenterology on board.
[2018-07-04 17:21] LABS: Albumin 2.9 g/dL (3.5-5.0); Calcium 8.1 mg/dL (8.4-10.2)
[2018-07-04] MEDS: INSULIN ASPART (NovoLOG) 100 UNIT/ML VIAL SQ SCH ×2 (18:00→23:00)
[2018-07-04] MEDS ORDERED: diphenhydrAMINE 25 MG CAP PO STA (19:57)
[2018-07-04] MEDS ORDERED: [UNRECOGNIZED DRUG - OTHER] IV ONE (20:15)
[2018-07-04] MEDS ORDERED: PANTOPRAZOLE 40 MG TABLET PO SCH (21:00)
[2018-07-04] MEDS: FLECAINIDE 50 MG TAB PO SCH (21:10)
[2018-07-04] MEDS: TACROLIMUS 1 MG CAP PO SCH (21:10)
[2018-07-04] MEDS: traZODone HCL 100 MG TAB PO SCH (21:11)
[2018-07-04] MEDS: METHADONE 5 MG TAB PO SCH (21:12)
[2018-07-04] MEDS: HYDROCORTISONE 10 MG TAB PO SCH (21:12)
[2018-07-04] MEDS: SUCRALFATE 1 GM TAB PO SCH (21:12)
[2018-07-04] MEDS: FERROUS SULFATE 325 MG TAB PO SCH (21:12)
[2018-07-04] MEDS: SERTRALINE 50 MG TAB PO SCH (21:15)
[2018-07-04] MEDS: clonazePAM 0.5 MG TAB PO SCH (21:16)
[2018-07-04] MEDS: METOPROLOL TARTRATE 12.5 MG TAB PO SCH (21:45)
[2018-07-04] MEDS ORDERED: diphenhydrAMINE 50 MG/ML 1 ML VIAL IVP STA (22:46)
[2018-07-04 23:12] LABS: Glucose,Whole Blood 125 mg/dL (75-99)
[2018-07-05] MEDS: HYDROmorphone 1 MG/ML 1 ML SYRINGE IVP PRN ×8 (01:39→21:34)
[2018-07-05 05:31] LABS: Glucose,Whole Blood 169 mg/dL (75-99)
[2018-07-05] MEDS: CLOTRIMAZOLE TROCHE 10 MG TROCHE PO SCH ×4 (05:32→21:30)
[2018-07-05] MEDS: INSULIN ASPART (NovoLOG) 100 UNIT/ML VIAL SQ SCH ×3 (05:33→18:13)
[2018-07-05 09:00] LABS: Anisocytosis Slight; Basophils % (A) 0 %; Eosinophils # (A) 0.2 k/uL (0-0.7); Eosinophils % (A) 1 %; HCT 36.9 % (39.0-53.0); HGB 10.9 gm/dL (13.0-17.5); Hypochromasia Marked; Lymphocytes # (A) 1.4 k/uL (1.0-4.8); Lymphocytes % (A) 9 %; MCH 26.5 pg (25.0-35.0); MCHC 29.4 g/dL (31.0-37.0); Mean Platelet Volume 13.4; Monocytes % (A) 7 %; Neutrophils # (A) 11.6 k/uL (1.3-7.7); Neutrophils % (A) 81 %; Platelet Count 173 k/uL (150-450); RDW 17.2 % (11.5-15.5); WBC 14.4 k/uL (3.8-10.6)
[2018-07-05] MEDS ORDERED: ENOXAPARIN 40 MG/0.4 ML SYRINGE SQ SCH ×2 (09:00)
[2018-07-05] MEDS ORDERED: FONDAPARINUX SODIUM SQ SCH (09:00)
[2018-07-05 09:13] LABS: Ionized Calcium 4.9 mg/dL (4.5-5.3)
[2018-07-05 09:55] LABS: Albumin 2.9 g/dL (3.5-5.0); Anion Gap 7 mmol/L; Blood Urea Nitrogen 48 mg/dL (9-20); Calcium 8.2 mg/dL (8.4-10.2); Carbon Dioxide 26 mmol/L (22-30); Chloride 104 mmol/L (98-107); Glucose 165 mg/dL (74-99); Lipase 464 U/L (23-300); Phosphorus 4.3 mg/dL (2.5-4.5); Potassium 5.2 mmol/L (3.5-5.1); Sodium 137 mmol/L (137-145); Triglycerides 209 mg/dL (<150)
[2018-07-05 10:01] LABS: Amylase 351 U/L (30-110)
[2018-07-05] MEDS: METOPROLOL TARTRATE 12.5 MG TAB PO SCH ×3 (10:12→21:32)
[2018-07-05] MEDS: GABAPENTIN 300 MG CAP PO SCH ×3 (10:12→21:31)
[2018-07-05] MEDS: PANTOPRAZOLE 40 MG/10 ML VIAL IVP SCH (10:12)
[2018-07-05] MEDS: FERROUS SULFATE 325 MG TAB PO SCH ×2 (10:13→21:32)
[2018-07-05] MEDS: QUEtiapine 25 MG TAB PO SCH (10:13)
[2018-07-05] MEDS: SUCRALFATE 1 GM TAB PO SCH ×2 (10:13→21:32)
[2018-07-05] MEDS: METHADONE 10 MG TAB PO SCH (10:13)
[2018-07-05] MEDS: SERTRALINE 100 MG TAB PO SCH (10:13)
[2018-07-05] MEDS: TACROLIMUS 1 MG CAP PO SCH ×2 (10:14→21:32)
[2018-07-05] MEDS: FLECAINIDE 50 MG TAB PO SCH ×2 (10:14→21:32)
[2018-07-05] MEDS: HYDROCORTISONE 10 MG TAB PO SCH ×2 (10:14→21:32)
[2018-07-05] MEDS: diphenhydrAMINE 50 MG/ML 1 ML VIAL IVP PRN ×2 (11:31→21:33)
[2018-07-05 12:15] LABS: Glucose,Whole Blood 174 mg/dL (75-99)
--- NOTE | 2018-07-05 14:32 | P.PN ---
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 Patient was placed on standard therapy with IV Dilaudid, IV antiemetics with Zofran and started on IV fluids, he was made nothing by mouth except meds. With treatment the patient's lipase level trended down nicely O plan to advance his diet tomorrow. This patient does want to be discharged so that he can follow-up with [facility] on Saturday Patient mentioning some itchiness, diet advanced by GI to ice chips. Patient has no other complaints, reports abdominal discomfort is improving. No acute events overnight. Objective - Vital Signs Vital signs: Vital Signs Temp 97.9 F 07/05/18 07:00 Pulse 90 07/05/18 07:00 Resp 17 07/05/18 07:00 BP 133/77 07/05/18 07:00 Pulse Ox 97 07/05/18 07:00 Intake & Output 07/04/18 07/05/18 07/05/18 18:59 06:59 18:59 Intake Total 500 240 Output Total 300 Balance 500 240 -300 Weight 90.718 kg 90.718 kg Intake: Oral 500 240 Output: Urine/Stool Mix 300 Other: Voiding Method Urinal Urinal Urinal # Voids 1 2 2 # Bowel Movements 2 2 - Exam Constitutional: No acute distress, conversant, pleasant Eyes: Anicteric sclerae, moist conjunctiva, no lid-lag, PERRLA ENMT: NC/AT,Oropharynx clear, no erythema, exudates Neck:Supple, FROM, no masses, or JVD, No carotid bruits; No thyromegaly Lungs: Clear to auscultation, Clear to percussion, Normal respiratory effort, no accessory muscle use Cardiovascular: Heart regular in rate and rhythm, No murmurs, gallops, or rubs no peripheral edema Abdominal: No guarding, colostomy bag intact with significant liquid output Skin: Normal temperature, tone, texture, turgor, No induration No subcutaneous nodules, No rash, lesions, No ulcers Extremities:No digital cyanosis No clubbing, Pedal pulses intact and sym metrical Radial pulses intact and symmetrical Normal gait and station, No calf tenderness Psychiatric: Alert and oriented to person, place and time, Appropriate affect Intact judgement Neuro: Muscles Strength 5/5 in all 4 extremities, Sensation to light touch grossly present throughout, Cranial nerves II-XII grossly intact. No focal sensory deficits - Labs CBC & Chem 7: 07/05/18 08:06 07/05/18 08:06 Labs: Abnormal Lab Results - Last 24 Hours (Table) 07/04/18 07/04/18 07/05/18 Range/Units 16:44 22:59 05:20 WBC (3.8-10.6) k/uL RBC (4.30-5.90) m/uL Hgb (13.0-17.5) gm/dL Hct (39.0-53.0) % MCHC (31.0-37.0) g/dL RDW (11.5-15.5) % Neutrophils # (1.3-7.7) k/uL Potassium (3.5-5.1) mmol/L BUN (9-20) mg/dL Glucose (74-99) mg/dL POC Glucose (mg/dL) 125 H 169 H (75-99) mg/dL Calcium 8.1 L (8.4-10.2) mg/dL Albumin 2.9 L (3.5-5.0) g/dL Triglycerides (<150) mg/dL Amylase (30-110) U/L Lipase (23-300) U/L 07/05/18 07/05/18 07/05/18 Range/Units 08:06 08:06 12:03 WBC 14.4 H (3.8-10.6) k/uL RBC 4.10 L (4.30-5.90) m/uL Hgb 10.9 L (13.0-17.5) gm/dL Hct 36.9 L (39.0-53.0) % MCHC 29.4 L (31.0-37.0) g/dL RDW 17.2 H (11.5-15.5) % Neutrophils # 11.6 H (1.3-7.7) k/uL Potassium 5.2 H (3.5-5.1) mmol/L BUN 48 H (9-20) mg/dL Glucose 165 H (74-99) mg/dL POC Glucose (mg/dL) 174 H (75-99) mg/dL Calcium 8.2 L (8.4-10.2) mg/dL Albumin 2.9 L (3.5-5.0) g/dL Triglycerides 209 H (<150) mg/dL Amylase 351 H* (30-110) U/L Lipase 464 H (23-300) U/L Microbiology - Last 24 Hours (Table) 07/04/18 11:03 Urine Culture - Final Urine,Voided Assessment and Plan (1) Pancreatitis of transplanted pancreas Narrative/Plan: * Lipase trending down from 3800 range down to 460 * Continue current management ice chips nothing by mouth except meds, IV fluids, IV antiemetics with Zofran IV pain medication with Dilaudid * GI consulted awaiting for the recommendations will plan to continue TPN * Patient will follow-up with [facility] in a few days Current Visit: Yes Status: Acute Code(s): T86.898 - OTHER COMPLICATIONS OF OTHER TRANSPLANTED TISSUE; K85.90 - ACUTE PANCREATITIS WITHOUT NECROSIS OR INFECTION, UNSP SNOMED Code(s): 39629427 (2) Acute kidney injury Narrative/Plan: * Prerenal secondary to dehydration from acute pancreatitis * Creatinine back to baseline * Continue with IV fluids Current Visit: Yes Status: Resolved Code(s): N17.9 - ACUTE KIDNEY FAILURE, UNSPECIFIED SNOMED Code(s): 47959561 (3) Leukocytosis Narrative/Plan: * Continue to monitor closely as patient is on immunosuppressive therapy with P rograf due to his history of pancreatic transplant * likely secondary to acute pancreatitis but will check blood cultures, urinalysis was negative Current Visit: Yes Status: Acute Code(s): D72.829 - ELEVATED WHITE BLOOD CELL COUNT, UNSPECIFIED SNOMED Code(s): 419780308 (4) Atrial fibrillation Narrative/Plan: * Continue on flecainide and metoprolol * Current Visit: No Status: Chronic Code(s): I48.91 - UNSPECIFIED ATRIAL FIBRILLATION SNOMED Code(s): 64525396
[2018-07-05] MEDS: SODIUM CHLORIDE 0.9% 1,000 ML IV SCH (17:54)
[2018-07-05] MEDS ORDERED: [UNRECOGNIZED DRUG - REMARK] IV SCH ×13 (18:00→18:07)
[2018-07-05 18:12] LABS: Glucose,Whole Blood 108 mg/dL (75-99)
--- NOTE | 2018-07-05 19:44 | CONS ---
CONSULTATION DATE OF DICTATION: July 05, 2018. REQUESTING PHYSICIAN: Dr. Quintana. REASON FOR CONSULTATION: Acute pancreatitis. HISTORY OF PRESENT ILLNESS: The patient is a 48-year-old pleasant white male, known to me from his previous hospitalizations and office visits. He has history of multivisceral organ transplant in [place] in 2002, admitted to hospital with acute onset of severe epigastric pain and noted to have elevated amylase and lipase consistent with acute pancreatitis. He has been having epigastric pain that started about 3 days ago. The pain was very intense, associated with nausea but no emesis. He had similar attacks of pancreatitis in the past. Etiology remained undetermined. At one point it was thought it was related to moderate alcohol use but he quit drinking several months ago. 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 He remains on TPN for the last 3 months. He has a colostomy bag on the enterocutaneous fistula that drains approximately 1000 mL of secretions daily. PAST MEDICAL HISTORY: Also significant for atrial fibrillation, COPD, DVT, GERD, chronic renal insufficiency, sleep apnea. PAST SURGICAL HISTORY: Cholecystectomy, multivisceral organ transplant as mentioned above. MEDICATIONS: Include Bactrim, albuterol, trazodone, Carafate, Seroquel, Cortef, Tambocor, flecainide, Klonopin, [place], Tums, vitamin D3, Arixtra, Zoloft, Protonix, Prograf, gabapentin, and TPN. ALLERGIES: TO ASPIRIN, HEPARIN, TORADOL, MORPHINE. SOCIAL HISTORY: Remote history of smoking. Occasional alcohol use. FAMILY HISTORY: Unremarkable. REVIEW OF SYSTEMS: Cardiopulmonary: Denies any chest pain, shortness of breath. Genitourinary: No dysuria or hematuria. Musculoskeletal unremarkable. Skin unremarkable. Endocrine unremarkable. Psychiatric unremarkable. Neurology unremarkable. ENT/vision unremarkable. Constitutional: No recent weight loss. No fever, chills, night sweats. PHYSICAL EXAMINATION: He appears comfortable. No apparent distress. Vital signs stable. Blood pressure is 145/86, pulse rate 90, temperature 97.4. HEENT examination unremarkable. Conjunctivae pink. Sclerae anicteric. Oral cavity no lesions. Neck: No JVD or lymph node enlargement. Chest was clear to auscultation. HEART: Regular rate and rhythm. ABDOMEN: Soft. There was tenderness in the epigastric area. There was evidence of ileostomy in the right lower quadrant and a colostomy bag on the enterocutaneous fistula that is bilious secretions. Extremities: No pedal edema. Skin no rashes. NEUROLOGIC: Alert and oriented x3. No focal deficits. LABS: Done at the time of admission to the hospital: WBC 14.4, hemoglobin 11.9, platelets are normal. Basic metabolic panel is within normal limits. BUN 64, creatinine 1.35. AST, ALT, total bilirubin and alkaline phosphatase are normal. Amylase is 803, lipase is 3832. Today, amylase is down to 351, lipase is down to 464. IMPRESSION: 1. Acute recurrent pancreatitis, this being at least the 3rd or 4th episode in the last 3 years. The etiology remains unclear. In the past, he did have moderate amount of alcohol use which he quit drinking several months ago. 2. History of multivisceral organ transplant in 2002 for intestinal obstruction recently had wound dehiscence on the anterior abdominal wall requiring surgery with ileostomy repair of the enterocutaneous fistula at [facility]. In fact is scheduled for repeat surgery for fistula closure at [facility] next week. 3. Acute kidney injury, probably related to dehydration, which is gradually improving. 4. Atrial fibrillation on antiarrhythmic agents. RECOMMENDATIONS: 1. Continue with aggressive hydration. 2. Follow labs closely. 3. Keep him n.p.o. except for ice chips. 4. Repeat labs in the morning and will follow the patient closely during his hospital stay. Thank you for this consultation. MMODL / IJN: [id number] /
[2018-07-05] MEDS: clonazePAM 0.5 MG TAB PO SCH (21:30)
[2018-07-05] MEDS: SERTRALINE 50 MG TAB PO SCH (21:32)
[2018-07-05] MEDS: METHADONE 5 MG TAB PO SCH (21:33)
[2018-07-05] MEDS: traZODone HCL 100 MG TAB PO SCH (21:40)
[2018-07-06 00:20] LABS: Glucose,Whole Blood 157 mg/dL (75-99)
[2018-07-06] MEDS: CLOTRIMAZOLE TROCHE 10 MG TROCHE PO SCH ×3 (00:21→10:41)
[2018-07-06] MEDS: INSULIN ASPART (NovoLOG) 100 UNIT/ML VIAL SQ SCH ×3 (00:22→11:59)
[2018-07-06] MEDS: MAGNESIUM SULFATE IV SCH ×2 (00:49→05:06)
[2018-07-06] MEDS: [UNRECOGNIZED DRUG - OTHER] IV SCH ×2 (00:49→05:06)
[2018-07-06] MEDS: SODIUM CHLORIDE IV SCH ×2 (00:49→05:06)
[2018-07-06] MEDS: HYDROmorphone 1 MG/ML 1 ML SYRINGE IVP PRN ×2 (04:26→09:01)
[2018-07-06] MEDS: SODIUM CHLORIDE 0.9% 1,000 ML IV SCH ×2 (04:34→10:41)
[2018-07-06 05:57] LABS: Glucose,Whole Blood 150 mg/dL (75-99)
[2018-07-06 07:36] LABS: Anion Gap 4 mmol/L; Blood Urea Nitrogen 34 mg/dL (9-20); Calcium 8.2 mg/dL (8.4-10.2); Carbon Dioxide 27 mmol/L (22-30); Chloride 108 mmol/L (98-107); Glucose 192 mg/dL (74-99); Lipase 94 U/L (23-300); Potassium 4.9 mmol/L (3.5-5.1); Sodium 139 mmol/L (137-145); Triglycerides 80 mg/dL (<150)
[2018-07-06 07:43] VITALS: BP 156/70; PULSE 83; RESP 18; TEMP 97.9
[2018-07-06 07:53] LABS: Anisocytosis Slight; Basophils % (A) 0 %; Eosinophils # (A) 0.1 k/uL (0-0.7); Eosinophils % (A) 1 %; HCT 34.6 % (39.0-53.0); HGB 10.3 gm/dL (13.0-17.5); Hypochromasia Marked; Lymphocytes # (A) 1.2 k/uL (1.0-4.8); Lymphocytes % (A) 10 %; MCH 26.6 pg (25.0-35.0); MCHC 29.6 g/dL (31.0-37.0); MCV 89.8 fL (80.0-100.0); Mean Platelet Volume 12.9; Monocytes % (A) 9 %; Neutrophils % (A) 79 %; Platelet Count 179 k/uL (150-450); RBC 3.86 m/uL (4.30-5.90); RDW 17.3 % (11.5-15.5); WBC 11.4 k/uL (3.8-10.6)
[2018-07-06] MEDS: METOPROLOL TARTRATE 12.5 MG TAB PO SCH (08:59)
[2018-07-06] MEDS: SUCRALFATE 1 GM TAB PO SCH (08:59)
[2018-07-06] MEDS: PANTOPRAZOLE 40 MG/10 ML VIAL IVP SCH (08:59)
[2018-07-06] MEDS: FLECAINIDE 50 MG TAB PO SCH (09:00)
[2018-07-06] MEDS: TACROLIMUS 1 MG CAP PO SCH (09:00)
[2018-07-06] MEDS: SERTRALINE 100 MG TAB PO SCH (09:00)
[2018-07-06] MEDS: METHADONE 10 MG TAB PO SCH (09:00)
[2018-07-06] MEDS: FERROUS SULFATE 325 MG TAB PO SCH (09:00)
[2018-07-06] MEDS: GABAPENTIN 300 MG CAP PO SCH (09:00)
[2018-07-06] MEDS: HYDROCORTISONE 10 MG TAB PO SCH (09:00)
[2018-07-06] MEDS: QUEtiapine 25 MG TAB PO SCH (09:01)
[2018-07-06 11:45] LABS: Glucose,Whole Blood 173 mg/dL (75-99)
--- NOTE | 2018-07-06 11:45 | PN ---
PROGRESS NOTE DATE OF SERVICE: 07/06/2018. HISTORY: The patient is a 48-year-old pleasant white male with history of multivisceral organ transplant, recently underwent ileostomy and repair of the enterocutaneous fistula at [facility]. He was admitted to hospital with acute onset of severe epigastric pain and elevated amylase and lipase consistent with acute pancreatitis. Since being in the hospital, he has been doing much better. Abdominal pain is improving. No further episodes of nausea or vomiting. Requiring pain medications infrequently. He denies any fever, chills, or night sweats. PHYSICAL EXAMINATION: Appears comfortable, in no apparent distress. Vital signs is stable. Blood pressure 137/69, pulse rate 102, temperature 98.4. HEENT examination unremarkable. Conjunctivae pink. Sclerae anicteric. Oral cavity no lesions. Neck, no JVD or lymph node enlargement. Chest clear to auscultation. Heart has a regular rate and rhythm. Abdomen is soft. There was minimal tenderness in the epigastric area. There was drainage in the colostomy bag from the enterocutaneous fistula and the ileostomy bag appears to be intact. Extremities, no pedal edema skin no rashes. Neurologic, alert and oriented x3. No focal deficits. LABS: From today, lipase is 94, WBC 11.4, hemoglobin 10.3, and platelets are normal. IMPRESSION: 1. Acute recurrent pancreatitis of unclear etiology. Remote history of moderate alcohol use, which he quit drinking. 2. History of multivisceral organ transplant at [facility] in 2002 which included stomach, duodenum, small bowel and pancreas. 3. 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 He is scheduled for a repeat surgery early next week at [facility]. 4. History of ileostomy. RECOMMENDATIONS: 1. Continue with pain medications as needed. 2. We will start him on a low-fat diet. 3. If he is able to tolerate diet, he can be discharged home as the patient has an appointment at [facility] tomorrow. Thank you for this consultation. MMSILVIAL / CRISTELAN: [id number] /
--- NOTE | 2018-07-06 12:11 | P.DS ---
Providers Date of admission: 07/04/18 12:31 Expected date of discharge: 07/06/18 Attending physician: Casey Martinez MD Consults: 07/04/18 15:06 Consult Physician Routine Consulting Provider: Dandre Willams Consult Reason/Comments: Pancreatitis Do you want consulting provider notified?: Yes Primary care physician: Ras Zhao - Discharge Diagnosis(es) (1) Pancreatitis of transplanted pancreas Current Visit: Yes Status: Acute (2) Acute kidney injury Current Visit: Yes Status: Resolved (3) Leukocytosis Current Visit: Yes Status: Acute (4) Atrial fibrillation Current Visit: No Status: Chronic Hospital Course: The patient is a 48-year-old male with past medical history recurrent pancreatitis, 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 Patient was placed on standard therapy with IV Dilaudid, IV antiemetics with Zofran and started on IV fluids, he was made nothing by mouth except meds. With treatment the patient's lipase level trended down nicely and his diet was advanced. The patient was discharged home in stable condition with plans to follow-up at [facility] tomorrow for preoperative clearance. This discharge process took approximately 35 minutes. 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 with bilious secretions Patient Condition at Discharge: Good Plan - Discharge Summary Discharge Rx Participant: No New Discharge Prescriptions: Continue Sertraline [Zoloft] 100 mg PO DAILY Ferrous Gluconate 325 mg PO BID Sulfamethoxazole/Trimethoprim [Bactrim DS 800-160 mg] 0.5 tab PO MOWEFR traZODone HCL 200 mg PO HS Albuterol Sulfate [Proair Hfa] 2 puff INHALATION RT-Q6H PRN PRN Reason: Shortness Of Breath Sucralfate [Carafate] 1 gm PO BID Budesonide/Formoterol Fumarate [Symbicort 160-4.5 Mcg Inhaler] 2 puff INHALATION RT-BID Methadone [Dolophine] 10 mg PO QAM QUEtiapine [SEROquel] 25 mg PO DAILY Nystatin 100,000 Unit/ml Susp [Mycostatin Oral Susp] 500,000 unit PO QID Hydrocortisone [Cortef] 30 mg PO BID Flecainide Acetate [Tambocor] 150 mg PO Q12H clonazePAM [Klonopin ODT Wafer] 0.25 mg PO HS HYDROcodone/APAP 10-325MG [[place] 10-325] 1 tab PO TID PRN PRN Reason: Pain Calcium Carbonate [Tums] 500 mg PO QID Cholecalciferol [Vitamin D3] 5,000 unit PO MOWEFR Ipratropium [place] [Atrovent Hfa] 2 puff INHALATION RT-BID PRN PRN Reason: Shortness Of Breath Methadone [Dolophine] 5 mg PO HS Fondaparinux Sodium [Arixtra] 5 mg SQ DAILY Sertraline [Zoloft] 50 mg PO HS Pantoprazole [Protonix] 40 mg PO BID Tacrolimus [Prograf] 5 mg PO BID Gabapentin 600 mg PO TID Tpn 1 dose IV DAILY@1800 Discharge Medication List Ferrous Gluconate 325 mg PO BID 09/02/13 [History] Sertraline [Zoloft] 100 mg PO DAILY 09/02/13 [History] Sulfamethoxazole/Trimethoprim [Bactrim DS 800-160 mg] 0.5 tab PO MOWEFR 08/02/16 [History] Albuterol Sulfate [Proair Hfa] 2 puff INHALATION RT-Q6H PRN 12/19/16 [History] traZODone HCL 200 mg PO HS 12/19/16 [History] Sucralfate [Carafate] 1 gm PO BID 03/23/17 [History] Budesonide/Formoterol Fumarate [Symbicort 160-4.5 Mcg Inhaler] 2 puff INHALATION RT-BID 05/17/17 [History] Methadone [Dolophine] 10 mg PO QAM 05/17/17 [History] QUEtiapine [SEROquel] 25 mg PO DAILY 07/23/17 [History] Flecainide Acetate [Tambocor] 150 mg PO Q12H 12/12/17 [History] Hydrocortisone [Cortef] 30 mg PO BID 12/12/17 [History] Nystatin 100,000 Unit/ml Susp [Mycostatin Oral Susp] 500,000 unit PO QID 12/12/17 [History] clonazePAM [Klonopin ODT Wafer] 0.25 mg PO HS 12/12/17 [History] HYDROcodone/APAP 10-325MG [[place] 10-325] 1 tab PO TID PRN 01/10/18 [History] Calcium Carbonate [Tums] 500 mg PO QID 01/22/18 [History] Cholecalciferol [Vitamin D3] 5,000 unit PO MOWEFR 01/22/18 [History] Ipratropium [place] [Atrovent Hfa] 2 puff INHALATION RT-BID PRN 01/22/18 [History] Methadone [Dolophine] 5 mg PO HS 01/22/18 [History] Fondaparinux Sodium [Arixtra] 5 mg SQ DAILY 02/13/18 [History] Pantoprazole [Protonix] 40 mg PO BID 05/17/18 [History] Sertraline [Zoloft] 50 mg PO HS 05/17/18 [History] Gabapentin 600 mg PO TID 06/18/18 [History] Tacrolimus [Prograf] 5 mg PO BID 06/18/18 [History] Tpn 1 dose IV DAILY@1800 06/18/18 [History] Follow up Appointment(s)/Referral(s): Ras Zhao MD [Primary Care Provider] - 1-2 days
[2018-07-07] MEDS ORDERED: FAT EMULSION 20% 250 ML IV SCH (18:00)
== END 2018-07-06 12:45 | disposition home or self-care (01) | DRG 438 ==
LOC: EC 10:13 → 4SSUR 12:31
PROVIDERS: ADMIT Family Medicine; ATTEND Family Medicine
DX: T86.898 Other complications of other transplanted tissue (principal); K85.90 Acute pancreatitis without necrosis or infection, unspecified; I81 Portal vein thrombosis; E27.40 Unspecified adrenocortical insufficiency; K56.7 Ileus, unspecified; K63.2 Fistula of intestine; K86.1 Other chronic pancreatitis; N17.9 Acute kidney failure, unspecified; I82.722 Chronic embolism and thrombosis of deep veins of left upper extremity; Z94.82 Intestine transplant status; I48.0 Paroxysmal atrial fibrillation; K31.84 Gastroparesis; N18.3 Chronic kidney disease, stage 3 (moderate); D64.9 Anemia, unspecified; E86.0 Dehydration; F17.210 Nicotine dependence, cigarettes, uncomplicated; G47.33 Obstructive sleep apnea (adult) (pediatric); J44.9 Chronic obstructive pulmonary disease, unspecified; K21.9 Gastro-esophageal reflux disease without esophagitis; F32.9 Major depressive disorder, single episode, unspecified; F41.9 Anxiety disorder, unspecified; G89.29 Other chronic pain; M54.9 Dorsalgia, unspecified; L29.9 Pruritus, unspecified; R51 Headache; Z79.51 Long term (current) use of inhaled steroids; Z79.899 Other long term (current) drug therapy; Z93.2 Ileostomy status; Z93.3 Colostomy status; Z88.6 Allergy status to analgesic agent; Z88.5 Allergy status to narcotic agent; Z88.8 Allergy status to other drugs, medicaments and biological substances; Z87.01 Personal history of pneumonia (recurrent); Z86.14 Personal history of Methicillin resistant Staphylococcus aureus infection; Z90.49 Acquired absence of other specified parts of digestive tract; Y83.0 Surgical operation with transplant of whole organ as the cause of abnormal reaction of the patient, or of later complication, without mention of misadventure at the time of the procedure
CPT/HCPCS: 36415; 74022; 80048; 80053; 80320; 81003; 82040; 82150; 82310; 82330; 83605; 83690; 83735; 84100; 84478; 84484; 85025; 87040; 87086; 94640; 96361; 96374; 96376; 99285

== ENCOUNTER 2018-07-18 05:54 | Emergency (ER) | payer MEDICARE, BC ==
[2018-07-18 06:04] VITALS: TEMP 97.9
--- NOTE | 2018-07-18 06:04 | ED ---
General Adult HPI - General Stated complaint: Bleeding Post Varghese Replacement Time Seen by Provider: 07/18/18 06:03 Source: patient Mode of arrival: ambulatory Limitations: no limitations - History of Present Illness Initial comments: Adrian is a 48-year-old male with a very extensive street as documented below. Patient presents to the emergency department today for evaluation of bleeding from his Varghese insertion site. Yesterday patient was seen at the [facility] where he had his previous infected Varghese removed and a new one placed. Patient does report he had significant discomfort with the procedure and was advised that in the future he will have to have his Varghese's exchanged under anesthesia. Patient reports he was doing well upon discharge home. Patient reports he woke this morning and noted there was significant collection of blood under the Varghese site. He reports he used to Varghese last night without difficulty he was able to infuse his TPN without any complications. He is just worried about the bleeding from the insertion site. - Related Data Home Medications Medication Instructions Recorded Confirmed Ferrous Gluconate 325 mg PO BID 09/02/13 07/18/18 Sertraline [Zoloft] 100 mg PO DAILY 09/02/13 07/18/18 Sulfamethoxazole/Trimethoprim 0.5 tab PO MOWEFR 08/02/16 07/18/18 [Bactrim DS 800-160 mg] Albuterol Sulfate [Proair Hfa] 2 puff INHALATION RT-Q6H PRN 12/19/16 07/18/18 traZODone HCL 200 mg PO HS 12/19/16 07/18/18 Sucralfate [Carafate] 1 gm PO BID 03/23/17 07/18/18 Budesonide/Formoterol Fumarate 2 puff INHALATION RT-BID 05/17/17 07/18/18 [Symbicort 160-4.5 Mcg Inhaler] Methadone [Dolophine] 10 mg PO QAM 05/17/17 07/18/18 QUEtiapine [SEROquel] 25 mg PO DAILY 07/23/17 07/18/18 Flecainide Acetate [Tambocor] 150 mg PO Q12H 12/12/17 07/18/18 Hydrocortisone [Cortef] 30 mg PO BID 12/12/17 07/18/18 Nystatin 100,000 Unit/ml Susp 500,000 unit PO QID 12/12/17 07/18/18 [Mycostatin Oral Susp] clonazePAM [Klonopin ODT Wafer] 0.25 mg PO HS 12/12/17 07/18/18 HYDROcodone/APAP 10-325MG [[place] 1 tab PO TID PRN 01/10/18 07/18/18 10-325] Calcium Carbonate [Tums] 500 mg PO QID 01/22/18 07/18/18 Cholecalciferol [Vitamin D3] 5,000 unit PO MOWEFR 01/22/18 07/18/18 Ipratropium [place] [Atrovent Hfa] 2 puff INHALATION RT-BID PRN 01/22/18 07/18/18 Methadone [Dolophine] 5 mg PO HS 01/22/18 07/18/18 Fondaparinux Sodium [Arixtra] 5 mg SQ DAILY 02/13/18 07/18/18 Pantoprazole [Protonix] 40 mg PO BID 05/17/18 07/18/18 Sertraline [Zoloft] 50 mg PO HS 05/17/18 07/18/18 Gabapentin 600 mg PO TID 06/18/18 07/18/18 Tpn 1 dose IV DAILY@1800 06/18/18 07/18/18 Enoxaparin Sodium 80 mg SQ DIRECTED 07/18/18 07/18/18 Tacrolimus [Prograf] 2 mg PO BID 07/18/18 07/18/18 Allergies Allergy/AdvReac Type Severity Reaction Status Date / Time aspirin Allergy GI Verified 07/18/18 07:02 BLEEDING , ABDOMINAL PAIN heparin AdvReac abdominal Verified 07/18/18 07:02 pain , GI bleeding ketorolac tromethamine AdvReac migraines Verified 07/18/18 07:02 [From Toradol] morphine AdvReac Itching Verified 07/18/18 07:02 Review of Systems ROS Statement: Those systems with pertinent positive or pertinent negative responses have been documented in the HPI. ROS Other: All systems not noted in ROS Statement are negative. 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 blood clot in aortic graft History of Any Multi-Drug Resistant Organisms: C-DIFF, MRSA Date of last positivie culture/infection: MRSA sputum 05/29/17 MDRO Source:: C-diff stool 05/11/18 Past Surgical History: Bowel Resection, Cholecystectomy Additional Past Surgical History / Comment(s): Multivisceral organ transplant including bowel, doudenum,pancreas, and stomach at [facility]- follows thru [facility],spleen removed, left knee arthrotomy, EGD, colonoscopy, ERCP with insertion of a pancreatic duct stent- since removed . ileostomy in october 2017, dehised x 2, repair of fistula, second fistula appeared may 01, 2018, pt currently has ostomy bag in which fistula drained into, colonized c-diff, MRSA in sputum a year ago, as valve surgery, varghese catheter. Past Anesthesia/Blood Transfusion Reactions: No Reported Reaction Additional Past Anesthesia/Blood Transfusion Reaction / Comment(s): STATES R/T TO MULTIPLE SX HE REQUIRES A LOT OF MEDICATION for anesthesia. He has had multiple blood transfusions without reaction. Past Psychological History: Anxiety, Depression Smoking Status: Light tobacco smoker Past Alcohol Use History: None Reported Past Drug Use History: None Reported - Past Family History Mother History Unknown: Yes Additional Family Medical History / Comment(s): pt is adopted, does not know any hx Father History Unknown: Yes Additional Family Medical History / Comment(s): Pt is adopted and knows no history. General Exam - General Exam Comments Initial Comments: Physical Exam GENERAL: Medically ill appearing 48-year-old gentleman that appears uncomfortable upon initial evaluation HENT: Normocephalic, Atraumatic. EYES: PERRL, EOMI PULMONARY: Unlabored respirations. No audible rales rhonchi or wheezing was noted. CARDIOVASCULAR: There is a regular rate and rhythm without any murmurs gallops or rubs. ABDOMEN: Multiple well-healed surgical incisions Colostomy in left lower quadrant Ostomy bag over a bowel to skin fistula in the mid abdomen SKIN: There is a Varghese in place in the right upper chest, a incision lateral to the Varghese where previous line had been placed there is significant bruising around the site : Deferred NEUROLOGIC: Patient is alert and oriented x3. Moving all extremities spontaneously MUSCULOSKELETAL: Normal extremities with adequate strength and full range of motion. No lower e xtremity swelling or edema. No calf tenderness. PSYCHIATRIC: Normal psychiatric evaluation. Limitations: no limitations Limitations: no limitations Course Vital Signs 07/18/18 07/18/18 06:01 07:18 Temperature 97.9 F 97.9 F Pulse Rate 109 H 110 H Respiratory 20 18 Rate Blood Pressure 108/56 113/78 O2 Sat by Pulse 97 97 Oximetry Medical Decision Making - Medical Decision Making She was seen and evaluated history was obtained from the patient at bedside Patient with bleeding at his Varghese insertion site no sign patient does take Lovenox but held that yesterday evening and did not give any today prior to being evaluated X-ray was obtained to confirms Varghese in proper position. Central and dressing was taken down, blood clot at the insertion site of the Varghese was removed. There is no active bleeding. A new sterile Central and d ressing was placed. There is no active bleeding noted after cleaning and redressing the Varghese site. The site patient's comfortable with the plan for discharge home. Patient will contact his provider [facility] to inquire whether he should take his Lovenox today or not. All questions pertaining care were answered best my ability return parameters were discussed patient discharged home Disposition Clinical Impression: Visit for wound check Disposition: HOME SELF-CARE Condition: Stable Instructions (If sedation given, give patient instructions): Tunneled Central Lines in Adult (ED) Is patient prescribed a controlled substance at d/c from ED?: No Referrals: Ras Zhao MD [Primary Care Provider] - 1-2 days
[2018-07-18] MEDS ORDERED: HYDROmorphone 1 MG/ML 1 ML SYRINGE IM STA (06:12)
--- NOTE | 2018-07-18 06:34 | XR ---
EXAM: XR Chest, 1 View CLINICAL HISTORY: [place] line placement TECHNIQUE: Frontal view of the chest. COMPARISON: No relevant prior studies available. FINDINGS: Lungs: Right-sided catheter distal tip in good position at the junction superior vena cava and right atrium. No pneumothorax. Mild chronic interstitial changes. Heart: Unremarkable. No cardiomegaly. IMPRESSION: Right-sided catheter in good position distal tip junction superior vena cava and right atrium. No evidence of pneumothorax.
[2018-07-18 07:19] VITALS: BP 113/78; PULSE 110; RESP 18
== END 2018-07-18 07:20 | disposition home or self-care (01) ==
LOC: EC 05:54
DX: Z45.2 Encounter for adjustment and management of vascular access device (principal); I48.0 Paroxysmal atrial fibrillation; J44.9 Chronic obstructive pulmonary disease, unspecified; K21.9 Gastro-esophageal reflux disease without esophagitis; D64.9 Anemia, unspecified; F41.9 Anxiety disorder, unspecified; F32.9 Major depressive disorder, single episode, unspecified; F17.200 Nicotine dependence, unspecified, uncomplicated; G47.33 Obstructive sleep apnea (adult) (pediatric); Z99.89 Dependence on other enabling machines and devices; Z86.718 Personal history of other venous thrombosis and embolism; Z86.14 Personal history of Methicillin resistant Staphylococcus aureus infection; Z94.83 Pancreas transplant status; Z94.89 Other transplanted organ and tissue status; Z90.81 Acquired absence of spleen; Z93.2 Ileostomy status; Z79.51 Long term (current) use of inhaled steroids; Z79.891 Long term (current) use of opiate analgesic; Z79.52 Long term (current) use of systemic steroids; Z79.01 Long term (current) use of anticoagulants; Z79.899 Other long term (current) drug therapy; Z88.8 Allergy status to other drugs, medicaments and biological substances; Z88.6 Allergy status to analgesic agent; Z88.5 Allergy status to narcotic agent
CPT/HCPCS: 71045; 96372; 99283

== ENCOUNTER 2018-07-24 07:08 | Inpatient (IN) | payer MEDICARE, BC ==
[~2018-07-24 07:08] MED LIST changes: -VANCOMYCIN 1,250 MG in SODIUM CHLORIDE 0.9% 250 ML IVPB ONE; +[UNRECOGNIZED DRUG - REMARK] IV ONE
[2018-07-24] MEDS ORDERED: diphenhydrAMINE 50 MG/ML 1 ML VIAL IVP STA (07:29)
[2018-07-24] MEDS ORDERED: ONDANSETRON 4 MG/2 ML VIAL IVP STA (07:29)
[2018-07-24] MEDS ORDERED: HYDROmorphone 1 MG/ML 1 ML SYRINGE IVP STA (07:29)
[2018-07-24] MEDS ORDERED: SODIUM CHLORIDE 0.9% 500 ML 500 ML IV ONE (07:30)
--- NOTE | 2018-07-24 07:34 | ED ---
General Adult HPI - General Chief complaint: Abdominal Pain Stated complaint: pancreatitis Time Seen by Provider: 07/24/18 07:18 Source: patient, RN notes reviewed, old records reviewed Mode of arrival: wheelchair Limitations: no limitations - History of Present Illness Initial comments: 48-year-old male presenting with epigastric abdominal pain. Patient has recent history of recurrent pancreatitis. He has complicated medical and surgical history. Previous surgical history of multiple organ transplant. His been dealing with multiple abdominal surgeries, wound dehiscence, infection over the past several months. He is also had several episodes of pancreatitis. His previous surgical history of cholecystectomy. He's been seen both at [facility] and [facility] regarding his pancreatitis. He has had MRCP. The exact cause of his pancreatitis is not known according to the patient. He states that yesterday evening he developed severe epigastric pain consistent with his previous pancreatitis. Denies chest pain or dyspnea. Denies fever or chills. His had some nausea no significant vomiting. - Related Data Home Medications Medication Instructions Recorded Confirmed Ferrous Gluconate 325 mg PO BID 09/02/13 07/18/18 Sertraline [Zoloft] 100 mg PO DAILY 09/02/13 07/18/18 Sulfamethoxazole/Trimethoprim 0.5 tab PO MOWEFR 08/02/16 07/18/18 [Bactrim DS 800-160 mg] Albuterol Sulfate [Proair Hfa] 2 puff INHALATION RT-Q6H PRN 12/19/16 07/18/18 traZODone HCL 200 mg PO HS 12/19/16 07/18/18 Sucralfate [Carafate] 1 gm PO BID 03/23/17 07/18/18 Budesonide/Formoterol Fumarate 2 puff INHALATION RT-BID 05/17/17 07/18/18 [Symbicort 160-4.5 Mcg Inhaler] Methadone [Dolophine] 10 mg PO QAM 05/17/17 07/18/18 QUEtiapine [SEROquel] 25 mg PO DAILY 07/23/17 07/18/18 Flecainide Acetate [Tambocor] 150 mg PO Q12H 12/12/17 07/18/18 Hydrocortisone [Cortef] 30 mg PO BID 12/12/17 07/18/18 Nystatin 100,000 Unit/ml Susp 500,000 unit PO QID 12/12/17 07/18/18 [Mycostatin Oral Susp] clonazePAM [Klonopin ODT Wafer] 0.25 mg PO HS 12/12/17 07/18/18 HYDROcodone/APAP 10-325MG [[place] 1 tab PO TID PRN 01/10/18 07/18/18 10-325] Calcium Carbonate [Tums] 500 mg PO QID 01/22/18 07/18/18 Cholecalciferol [Vitamin D3] 5,000 unit PO MOWEFR 01/22/18 07/18/18 Ipratropium [place] [Atrovent Hfa] 2 puff INHALATION RT-BID PRN 01/22/18 07/18/18 Methadone [Dolophine] 5 mg PO HS 01/22/18 07/18/18 Fondaparinux Sodium [Arixtra] 5 mg SQ DAILY 02/13/18 07/18/18 Pantoprazole [Protonix] 40 mg PO BID 05/17/18 07/18/18 Sertraline [Zoloft] 50 mg PO HS 05/17/18 07/18/18 Gabapentin 600 mg PO TID 06/18/18 07/18/18 Tpn 1 dose IV DAILY@1800 06/18/18 07/18/18 Enoxaparin Sodium 80 mg SQ DIRECTED 07/18/18 07/18/18 Tacrolimus [Prograf] 2 mg PO BID 07/18/18 07/18/18 Allergies Allergy/AdvReac Type Severity Reaction Status Date / Time aspirin Allergy GI Verified 07/24/18 09:11 BLEEDING , ABDOMINAL PAIN heparin AdvReac abdominal Verified 07/24/18 09:11 pain , GI bleeding ketorolac tromethamine AdvReac migraines Verified 07/24/18 09:11 [From Toradol] morphine AdvReac Itching Verified 07/24/18 09:11 Review of Systems ROS Statement: Those systems with pertinent positive or pertinent negative responses have been documented in the HPI. ROS Other: All systems not noted in ROS Statement are negative. 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 blood clot in aortic graft History of Any Multi-Drug Resistant Organisms: C-DIFF, MRSA Date of last positivie culture/infection: MRSA sputum 05/29/17 MDRO Source:: C-diff stool 05/11/18 Past Surgical History: Bowel Resection, Cholecystectomy Additional Past Surgical History / Comment(s): Multivisceral organ transplant including bowel, doudenum,pancreas, and stomach at [facility]- follows thru [facility],spleen removed, left knee arthrotomy, EGD, colonoscopy, ERCP with insertion of a pancreatic duct stent- since removed . ileostomy in october 2017, dehised x 2, repair of fistula, second fistula appeared may 01, 2018, pt currently has ostomy bag in which fistula drained into, colonized c-diff, MRSA in sputum a year ago, as infant valve surgery, varghese catheter. Past Anesthesia/Blood Transfusion Reactions: No Reported Reaction Additional Past Anesthesia/Blood Transfusion Reaction / Comment(s): STATES R/T TO MULTIPLE SX HE REQUIRES A LOT OF MEDICATION for anesthesia. He has had multiple blood transfusions without reaction. Past Psychological History: Anxiety, Depression Smoking Status: Former smoker Past Alcohol Use History: None Reported Past Drug Use History: None Reported - Past Family History Mother History Unknown: Yes Additional Family Medical History / Comment(s): pt is adopted, does not know any hx Father History Unknown: Yes Additional Family Medical History / Comment(s): Pt is adopted and knows no history. General Exam Limitations: no limitations General appearance: alert, in no apparent distress Head exam: Present: atraumatic, normocephalic Eye exam: Present: normal appearance, PERRL ENT exam: Present: mucous membranes dry Neck exam: Present: normal inspection. Absent: tenderness, meningismus Respiratory exam: Present: normal lung sounds bilaterally. Absent: respiratory distress, wheezes, rales Cardiovascular Exam: Present: regular rate, normal rhythm GI/Abdominal exam: Present: soft, distended, tenderness (Epigastric tenderness), other (Mucus fistula, ostomy.). Absent: guarding, rebound Extremities exam: Present: normal inspection, normal capillary refill. Absent: pedal edema Back exam: Present: normal inspection, full ROM Neurological exam: Present: alert, oriented X3, CN II-XII intact. Absent: motor sensory deficit Psychiatric exam: Present: normal affect, normal mood Course Vital Signs 07/24/18 07/24/18 07:14 08:44 Temperature 97.7 F Pulse Rate 103 H 75 Respiratory 18 18 Rate Blood Pressure 103/69 108/70 O2 Sat by Pulse 98 97 Oximetry Medical Decision Making - Medical Decision Making 48-year-old male complicated medical and surgical history presenting with epigastric pain. Patient states symptoms are identical to previous recurrent pancreatitis. Patient has stable vitals, nonsurgical abdominal exam. Laboratory studies reveal leukocytosis 14.6 which does appear chronic for this patient. Hemoglobin stable at 11.3. He has significant elevation in amylase and lipase with lipase being 3140. Patient will be For IV hydration, and symptom control. Case discussed with admitting physician. - Lab Data Result diagrams: 07/24/18 07:45 07/24/18 07:45 Lab Results 07/24/18 07/24/18 07/24/18 Range/Units 07:45 07:45 07:45 WBC 14.6 H (3.8-10.6) k/uL RBC 4.43 (4.30-5.90) m/uL Hgb 11.3 L (13.0-17.5) gm/dL Hct 37.3 L (39.0-53.0) % MCV 84.1 (80.0-100.0) fL MCH 25.6 (25.0-35.0) pg MCHC 30.4 L (31.0-37.0) g/dL RDW 17.8 H (11.5-15.5) % Plt Count 163 (150-450) k/uL Neutrophils % 77 % Lymphocytes % 14 % Monocytes % 6 % Eosinophils % 1 % Basophils % 0 % Neutrophils # 11.2 H (1.3-7.7) k/uL Lymphocytes # 2.0 (1.0-4.8) k/uL Monocytes # 0.9 (0-1.0) k/uL Eosinophils # 0.1 (0-0.7) k/uL Basophils # 0.0 (0-0.2) k/uL Manual Slide Review Performed Large Platelets Present Hypochromasia Slight Poikilocytosis (manual Present Anisocytosis Slight Target Cells Present Fragmented RBCs Present PT (9.0-12.0) sec INR (<1.2) APTT (22.0-30.0) sec Sodium 138 (137-145) mmol/L Potassium 4.5 (3.5-5.1) mmol/L Chloride 107 (98-107) mmol/L Carbon Dioxide 22 (22-30) mmol/L Anion Gap 9 mmol/L BUN 68 H (9-20) mg/dL Creatinine 1.20 (0.66-1.25) mg/dL Est GFR (CKD-EPI)AfAm 81 (>60 ml/min/1.73 sqM) Est GFR (CKD-EPI)NonAf 70 (>60 ml/min/1.73 sqM) Glucose 142 H (74-99) mg/dL Plasma Lactic Acid [place] 1.3 (0.7-2.0) mmol/L Calcium 8.7 (8.4-10.2) mg/dL Total Bilirubin 0.6 (0.2-1.3) mg/dL AST 38 (17-59) U/L ALT 52 (21-72) U/L Alkaline Phosphatase 246 H (38-126) U/L Troponin I (0.000-0.034) ng/mL Total Protein 6.6 (6.3-8.2) g/dL Albumin 3.6 (3.5-5.0) g/dL Amylase 548 H* (30-110) U/L Lipase 3140 H (23-300) U/L 07/24/18 07/24/18 Range/Units 07:45 07:45 WBC (3.8-10.6) k/uL RBC (4.30-5.90) m/uL Hgb (13.0-17.5) gm/dL Hct (39.0-53.0) % MCV (80.0-100.0) fL MCH (25.0-35.0) pg MCHC (31.0-37.0) g/dL RDW (11.5-15.5) % Plt Count (150-450) k/uL Neutrophils % % Lymphocytes % % Monocytes % % Eosinophils % % Basophils % % Neutrophils # (1.3-7.7) k/uL Lymphocytes # (1.0-4.8) k/uL Monocytes # (0-1.0) k/uL Eosinophils # (0-0.7) k/uL Basophils # (0-0.2) k/uL Manual Slide Review Large Platelets Hypochromasia Poikilocytosis (manual Anisocytosis Target Cells Fragmented RBCs PT 9.8 (9.0-12.0) sec INR 0.9 (<1.2) APTT 23.3 (22.0-30.0) sec Sodium (137-145) mmol/L Potassium (3.5-5.1) mmol/L Chloride (98-107) mmol/L Carbon Dioxide (22-30) mmol/L Anion Gap mmol/L BUN (9-20) mg/dL Creatinine (0.66-1.25) mg/dL Est GFR (CKD-EPI)AfAm (>60 ml/min/1.73 sqM) Est GFR (CKD-EPI)NonAf (>60 ml/min/1.73 sqM) Glucose (74-99) mg/dL Plasma Lactic Acid [place] (0.7-2.0) mmol/L Calcium (8.4-10.2) mg/dL Total Bilirubin (0.2-1.3) mg/dL AST (17-59) U/L ALT (21-72) U/L Alkaline Phosphatase (38-126) U/L Troponin I <0.012 (0.000-0.034) ng/mL Total Protein (6.3-8.2) g/dL Albumin (3.5-5.0) g/dL Amylase (30-110) U/L Lipase (23-300) U/L Disposition Clinical Impression: Pancreatitis of pancreas transplant, Pancreatitis Disposition: ADMITTED IP TO THIS [facility] Condition: Stable Is patient prescribed a controlled substance at d/c from ED?: No Referrals: Teto Zhao MD [REFERRING] - 1-2 days Decision to Admit Reason: Admit from EC Decision Date: 07/24/18 Decision Time: 09:17
[2018-07-24 08:35] LABS: Anisocytosis Slight; Basophils % (A) 0 %; Eosinophils # (A) 0.1 k/uL (0-0.7); Eosinophils % (A) 1 %; HCT 37.3 % (39.0-53.0); HGB 11.3 gm/dL (13.0-17.5); Hypochromasia Slight; INR 0.9 (<1.2); Lymphocytes % (A) 14 %; MCH 25.6 pg (25.0-35.0); MCHC 30.4 g/dL (31.0-37.0); MCV 84.1 fL (80.0-100.0); Mean Platelet Volume 14.4; Monocytes # (A) 0.9 k/uL (0-1.0); Monocytes % (A) 6 %; Neutrophils # (A) 11.2 k/uL (1.3-7.7); Neutrophils % (A) 77 %; Partial Thromboplastin Time 23.3 sec (22.0-30.0); Platelet Count 163 k/uL (150-450); Prothrombin Time 9.8 sec (9.0-12.0); RBC 4.43 m/uL (4.30-5.90); RDW 17.8 % (11.5-15.5); WBC 14.6 k/uL (3.8-10.6)
[2018-07-24 08:41] LABS: Albumin 3.6 g/dL (3.5-5.0); Calcium 8.7 mg/dL (8.4-10.2); Potassium 4.5 mmol/L (3.5-5.1); Total Bilirubin 0.6 mg/dL (0.2-1.3); Total Protein 6.6 g/dL (6.3-8.2)
[2018-07-24 09:05] LABS: Large Platelets Present; RBC Fragments Present
[2018-07-24 09:06] LABS: Poikilocytosis (M) Present; Target Cells Present
[2018-07-24] MEDS ORDERED: NALOXONE 0.4 MG/ML 1 ML VIAL IV PRN (09:14)
[2018-07-24] MEDS: SODIUM CHLORIDE 0.9% 1,000 ML IV SCH (09:42)
[2018-07-24] MEDS: HYDROmorphone 2 MG/ML 1 ML SYRINGE IVP PRN ×4 (10:39→20:46)
[2018-07-24] MEDS: diphenhydrAMINE 50 MG/ML 1 ML VIAL IVP PRN ×2 (14:13→20:46)
--- NOTE | 2018-07-24 15:45 | P.HPIM ---
History of Present Illness H&P Date: 07/24/18 Chief Complaint: abdominal pain 48-year-old male with significant PMH of COPD, atrial fibrillation, DVT, history of multivisceral organ transplant being seen at [facility] presents the ED for abdominal pain. Patient reports epigastric pain that started around 7 PM yesterday. Patient states that he thought that this pain is related to indigestion and thought that he could sleep it off. He woke up again around 3 AM when the pain got worse, prompting him to come to the ED. Pain is constant. Pain is 10 out of 10 in severity, stabbing and sharp in nature. Patient reports that the pain radiates to the back occasionally. Patient reports multiple episodes of this pain in the past, related to his pancreatitis. He denies any nausea or vomiting. He denies any headache, lower extremity edema, fever, chills, cough, chest pain, shortness of breath, changes in urination. Of note, he sees a team of doctors at [facility] regarding his multivisceral organ transplant. States that he has a surgery scheduled for colostomy revision on August 08. Patient was previously admitted on 07/04/2018 for episode of pancreatitis. Patient reports being on TPN. Patient reports eating but does not absorb many nutrients through the gut, has colostomy. In the ED, CBC showed a leukocytosis of 14.6. Patient was also noted to be anemic with a hemoglobin of 11.3. CMP showed a BUNs of 68, glucose of 142. Lactic acid was negative. Troponin was less than 0.012. Amylase was 548, lipase 3140. Patient is admitted for symptomatic management of pancreatitis. 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 blood clot in aortic graft History of Any Multi-Drug Resistant Organisms: C-DIFF, MRSA Date of last positivie culture/infection: MRSA sputum 05/29/17 MDRO Source:: C-diff stool 05/11/18 Past Surgical History: Bowel Resection, Cholecystectomy Additional Past Surgical History / Comment(s): Multivisceral organ transplant including bowel, doudenum,pancreas, and stomach at [facility]- follows thru [facility],spleen removed, left knee arthrotomy, EGD, colonoscopy, ERCP with insertion of a pancreatic duct stent- since removed . ileostomy in october 2017, dehised x 2, repair of fistula, second fistula appeared may 01, 2018, pt currently has ostomy bag in which fistula drained into, colonized c-diff, MRSA in sputum a year ago, as valve surgery, varghese catheter. Past Anesthesia/Blood Transfusion Reactions: No Reported Reaction Additional Past Anesthesia/Blood Transfusion Reaction / Comment(s): STATES R/T TO MULTIPLE SX HE REQUIRES A LOT OF MEDICATION for anesthesia. He has had multiple blood transfusions without reaction. Past Psychological History: Anxiety, Depression Smoking Status: Former smoker Past Alcohol Use History: None Reported Past Drug Use History: None Reported - Past Family History Mother History Unknown: Yes Additional Family Medical History / Comment(s): pt is adopted, does not know any hx Father History Unknown: Yes Additional Family Medical History / Comment(s): Pt is adopted and knows no history. Medications and Allergies Home Medications Medication Instructions Recorded Confirmed Type Ferrous Gluconate 325 mg PO BID 09/02/13 07/24/18 History Sertraline [Zoloft] 100 mg PO DAILY 09/02/13 07/24/18 History Sulfamethoxazole/Trimethoprim 0.5 tab PO MOWEFR 08/02/16 07/24/18 History [Bactrim DS 800-160 mg] Albuterol Sulfate [Proair Hfa] 2 puff INHALATION RT-Q6H PRN 12/19/16 07/24/18 History traZODone HCL 200 mg PO HS 12/19/16 07/24/18 History Sucralfate [Carafate] 1 gm PO BID 03/23/17 07/24/18 History Budesonide/Formoterol Fumarate 2 puff INHALATION RT-BID 05/17/17 07/24/18 History [Symbicort 160-4.5 Mcg Inhaler] Methadone [Dolophine] 10 mg PO QAM 05/17/17 07/24/18 History QUEtiapine [SEROquel] 25 mg PO DAILY 07/23/17 07/24/18 History Flecainide Acetate [Tambocor] 150 mg PO Q12H 12/12/17 07/24/18 History Hydrocortisone [Cortef] 30 mg PO TID 12/12/17 07/24/18 History Nystatin 100,000 Unit/ml Susp 500,000 unit PO QID 12/12/17 07/24/18 History [Mycostatin Oral Susp] clonazePAM [Klonopin ODT Wafer] 0.25 mg PO HS 12/12/17 07/24/18 History HYDROcodone/APAP 10-325MG [[place] 1 tab PO TID PRN 01/10/18 07/24/18 History 10-325] Calcium Carbonate [Tums] 500 mg PO QID 01/22/18 07/24/18 History Cholecalciferol [Vitamin D3] 5,000 unit PO MOWEFR 01/22/18 07/24/18 History Ipratropium [place] [Atrovent Hfa] 2 puff INHALATION RT-BID PRN 01/22/18 07/24/18 History Methadone [Dolophine] 5 mg PO HS 01/22/18 07/24/18 History Pantoprazole [Protonix] 40 mg PO BID 05/17/18 07/24/18 History Sertraline [Zoloft] 50 mg PO HS 05/17/18 07/24/18 History Gabapentin 600 mg PO TID 06/18/18 07/24/18 History Tpn 1 dose IV DAILY@1800 06/18/18 07/24/18 History Enoxaparin Sodium 100 mg SQ BID 07/18/18 07/24/18 History Tacrolimus [Prograf] 4 mg PO QAM 07/18/18 07/24/18 History Tacrolimus [Prograf] 3 mg PO HS 07/24/18 07/24/18 History Allergies Allergy/AdvReac Type Severity Reaction Status Date / Time aspirin Allergy GI Verified 07/24/18 09:11 BLEEDING , ABDOMINAL PAIN heparin AdvReac abdominal Verified 07/24/18 09:11 pain , GI bleeding ketorolac tromethamine AdvReac migraines Verified 07/24/18 09:11 [From Toradol] morphine AdvReac Itching Verified 07/24/18 09:11 Physical Exam Vitals: Vital Signs Temp Pulse Pulse Resp BP BP Pulse Ox 07/24/18 14:41 97.0 F L 98 16 119/73 98 07/24/18 14:15 97.7 F 93 18 128/87 93 L 07/24/18 13:36 71 18 115/73 97 07/24/18 10:41 91 18 104/66 96 07/24/18 08:44 75 18 108/70 97 07/24/18 07:14 97.7 F 103 H 18 103/69 98 Intake and Output 07/24/18 07/24/18 07/24/18 06:59 14:59 22:59 Other: Weight 89.811 kg General: [non toxic], [no distress], [appears at stated age] Derm: [warm], [dry] Head: [atraumatic], [normocephalic], [symmetric] Eyes: [EOMI], [no lid lag], [anicteric sclera] Mouth: [no lip lesion], [mucus membranes moist] Cardiovascular: [S1S2 reg], [no murmur], [positive DP pulse bilateral] Lungs: [CTA bilateral], [no rhonchi, no rales] , [no accessory muscle use] Abdominal: [soft], [epigastric tenderness without rebound], [no guarding], [colostomy bag full of stool], [surgical scar, well-healed] Ext: [no gross muscle atrophy], [no edema], [no contractures] Neuro: [ CN II-XI grossly intact], [no focal neuro deficits] Psych: [Alert], [oriented], [appropriate affect] Results CBC & Chem 7: 07/24/18 07:45 07/24/18 07:45 Labs: Abnormal Lab Results - Last 24 Hours (Table) 07/24/18 07/24/18 Range/Units 07:45 07:45 WBC 14.6 H (3.8-10.6) k/uL Hgb 11.3 L (13.0-17.5) gm/dL Hct 37.3 L (39.0-53.0) % MCHC 30.4 L (31.0-37.0) g/dL RDW 17.8 H (11.5-15.5) % Neutrophils # 11.2 H (1.3-7.7) k/uL BUN 68 H (9-20) mg/dL Glucose 142 H (74-99) mg/dL Alkaline Phosphatase 246 H (38-126) U/L Amylase 548 H* (30-110) U/L Lipase 3140 H (23-300) U/L Thrombosis Risk Factor Assmnt - Choose All That Apply Any of the Below Risk Factors Present?: Yes Each Factor Represents 1 point: Age 41-60 years, Obesity (BMI >25) Thrombosis Risk Factor Assessment Total Risk Factor Score: 2 Thrombosis Risk Factor Assessment Level: Low Risk Assessment and Plan Assessment: Assessment and Plan 1. Acute pancreatitis 2. Atrial fibrillation 3. Elevated BUN 4. COPD 5. History of multivisceral organ transplant 6. History of DVT 1. Unknown etiology. Amylase 548, lipase 3140. T bili, AST and ALTs are within normal limits. Alkaline phosphatase is slightly elevated at 246. Will keep patient nothing by mouth. Pain control with Dilaudid 2 mg IV every 3 hours. Zofran as needed for nausea and vomiting. Continue normal saline at 100 mL/h. Protonix 40 mg IV daily. 2. Rate controlled with metoprolol and flecainide. Continue Lovenox. Telemetry monitoring. 3. BUN 68, creatinine within normal limits. Likely secondary to dehydration. Continue normal saline at 100 mL per hour. Daily BMP. 4. DuoNeb 4 times a day as needed for shortness of breath or wheezing. Oxygen per nasal cannula to maintain an O2 saturation greater than 92%. 5. Continue tacrolimus 5 mg by mouth twice a day. Needs good follow-up at [facility]. 6. Continue Lovenox. Patient admitted for pancreatitis. He is pending clinical improvement.
[2018-07-24] MEDS: HYDROCORTISONE 10 MG TAB PO SCH ×2 (16:07→20:37)
[2018-07-24] MEDS: GABAPENTIN 300 MG CAP PO SCH ×2 (16:07→20:36)
[2018-07-24 16:31] LABS: Ionized Calcium 5.2 mg/dL (4.5-5.3)
[2018-07-24 16:40] LABS: Magnesium 2.1 mg/dL (1.6-2.3); Phosphorus 4.1 mg/dL (2.5-4.5)
[2018-07-24 17:38] LABS: Glucose,Whole Blood 92 mg/dL (75-99)
[2018-07-24] MEDS ORDERED: TPN IV SCH (18:00)
[2018-07-24] MEDS ORDERED: [UNRECOGNIZED DRUG - REMARK] IV ONE ×7 (19:00)
[2018-07-24] MEDS: ENOXAPARIN 100 MG/ML SYRINGE SQ SCH (20:29)
[2018-07-24] MEDS: FLECAINIDE 50 MG TAB PO SCH (20:29)
[2018-07-24] MEDS: SERTRALINE 50 MG TAB PO SCH (20:35)
[2018-07-24] MEDS: METHADONE 5 MG TAB PO SCH ×2 (20:35→22:55)
[2018-07-24] MEDS: TACROLIMUS 1 MG CAP PO SCH (20:36)
[2018-07-24] MEDS: traZODone HCL 100 MG TAB PO SCH (20:36)
[2018-07-24] MEDS ORDERED: HYDROCORTISONE 10 MG TAB PO SCH (21:00)
[2018-07-24] MEDS ORDERED: MAGNESIUM SULFATE IV ONE (23:00)
[2018-07-24] MEDS ORDERED: SODIUM CHLORIDE IV ONE (23:00)
[2018-07-24] MEDS ORDERED: [UNRECOGNIZED DRUG - OTHER] IV ONE (23:00)
[2018-07-25 00:25] LABS: Glucose,Whole Blood 183 mg/dL (75-99)
[2018-07-25] MEDS: HYDROmorphone 2 MG/ML 1 ML SYRINGE IVP PRN ×8 (00:30→21:26)
[2018-07-25] MEDS: GABAPENTIN 300 MG CAP PO SCH ×4 (00:30→21:39)
[2018-07-25] MEDS: diphenhydrAMINE 50 MG/ML 1 ML VIAL IVP PRN ×4 (03:36→21:36)
[2018-07-25] MEDS: SODIUM CHLORIDE 0.9% 1,000 ML IV SCH ×3 (04:57→15:24)
[2018-07-25] MEDS ORDERED: [UNRECOGNIZED DRUG - OTHER] IV ONE (05:00)
[2018-07-25] MEDS ORDERED: MAGNESIUM SULFATE IV ONE (05:00)
[2018-07-25] MEDS ORDERED: SODIUM CHLORIDE IV ONE (05:00)
[2018-07-25 06:05] LABS: Glucose,Whole Blood 214 mg/dL (75-99)
[2018-07-25] MEDS ORDERED: FAT EMULSION 20% 250 ML IV SCH (09:00)
[2018-07-25 09:03] LABS: Amylase 266 U/L (30-110); Anion Gap 4 mmol/L; Blood Urea Nitrogen 47 mg/dL (9-20); Calcium 8.8 mg/dL (8.4-10.2); Carbon Dioxide 27 mmol/L (22-30); Chloride 107 mmol/L (98-107); Glucose 155 mg/dL (74-99); Lipase 635 U/L (23-300); Magnesium 2.2 mg/dL (1.6-2.3); Phosphorus 3.3 mg/dL (2.5-4.5); Potassium 5.1 mmol/L (3.5-5.1); Sodium 138 mmol/L (137-145)
[2018-07-25] MEDS: SERTRALINE 100 MG TAB PO SCH (09:27)
[2018-07-25] MEDS: SULFAMETHOX-TMP 800-160MG 1 EACH TAB PO SCH (09:27)
[2018-07-25] MEDS: FLECAINIDE 50 MG TAB PO SCH ×2 (09:27→21:40)
[2018-07-25] MEDS: TACROLIMUS 1 MG CAP PO SCH ×2 (09:27→21:41)
[2018-07-25] MEDS: METHADONE 10 MG TAB PO SCH (09:28)
[2018-07-25] MEDS: ENOXAPARIN 100 MG/ML SYRINGE SQ SCH ×2 (09:28→21:38)
[2018-07-25] MEDS: QUEtiapine 25 MG TAB PO SCH (09:28)
[2018-07-25] MEDS: HYDROCORTISONE 10 MG TAB PO SCH ×3 (09:28→21:40)
[2018-07-25] MEDS: PANTOPRAZOLE 40 MG TABLET PO SCH ×2 (10:00→15:26)
--- NOTE | 2018-07-25 16:38 | P.PN ---
Subjective Progress Note Date: 07/25/18 Principal diagnosis: Pancreatitis Patient was seen and examined. No acute events overnight. Patient continues to report 10/10 abdominal pain radiating to the back. He reports mild nausea but no vomiting. No fever or chills. He denies any chest pain, shortness of breath or palpitations. Objective - Vital Signs Vital signs: Vital Signs Temp 97.7 F 07/25/18 13:16 Pulse 86 07/25/18 13:16 Resp 16 07/25/18 13:16 BP 112/75 07/25/18 13:16 Pulse Ox 96 07/25/18 13:16 Intake & Output 07/24/18 07/25/18 07/25/18 18:59 06:59 18:59 Intake Total 1400 Output Total 150 850 Balance -150 550 Weight 89.811 kg Intake: IV 1400 Magnesium Sulfate gm 0.5 1400 gm Sodium Chloride 2.5MEQ /ml Vial 30 meq In Amino Acid 5%-D15w+Lytes*E* 1, 000 ml @ 175 mls/hr IV . Q5H48M ONE Rx#:[id number] Output: Urine 550 Stool 150 300 Other: Voiding Method Urinal - Exam General: [non toxic], [no distress], [appears at stated age] Derm: [warm], [dry] Head: [atraumatic], [normocephalic], [symmetric] Eyes: [EOMI], [no lid lag], [anicteric sclera] Mouth: [no lip lesion], [mucus membranes moist] Cardiovascular: [S1S2 reg], [no murmur], [positive DP pulse bilateral] Lungs: [CTA bilateral], [no rhonchi, no rales] , [no accessory muscle use] Abdominal: [soft], [epigastric tenderness without rebound], [no guarding], [colostomy bag full of stool], [surgical scar, well-healed] Ext: [no gross muscle atrophy], [no edema], [no contractures] Neuro: [no focal neuro deficits] Psych: [Alert], [oriented], [appropriate affect] - Labs CBC & Chem 7: 07/24/18 07:45 07/25/18 08:10 Labs: Abnormal Lab Results - Last 24 Hours (Table) 07/25/18 07/25/1819 Range/Units 00:24 06:04 08:10 BUN 47 H (9-20) mg/dL Glucose 155 H (74-99) mg/dL POC Glucose (mg/dL) 183 H 214 H (75-99) mg/dL Amylase 266 H (30-110) U/L Lipase 635 H (23-300) U/L Microbiology - Last 24 Hours (Table) 07/24/18 07:45 Blood Culture - Preliminary Blood No Growth after 24 hours Assessment and Plan Assessment: Assessment and Plan 1. Acute pancreatitis 2. Atrial fibrillation 3. Elevated BUN 4. COPD 5. History of multivisceral organ transplant 6. History of DVT 1. Unknown etiology. Amylase 548-266, lipase 3140-635. T bili, AST and ALTs are within normal limits. Alkaline phosphatase is slightly elevated at 246. Advance to CLD. Pain control with Dilaudid 2 mg IV every 3 hours. Zofran as needed for nausea and vomiting. Continue normal saline at 100 mL/h. Protonix 40 mg IV daily. 2. Rate controlled with metoprolol and flecainide. Continue Lovenox. Telemetry monitoring. 3. BUN 68-47, creatinine within normal limits. Likely secondary to dehydration. Continue normal saline at 100 mL per hour. Daily BMP. 4. DuoNeb 4 times a day as needed for shortness of breath or wheezing. Oxygen per nasal cannula to maintain an O2 saturation greater than 92%. 5. Continue tacrolimus 5 mg by mouth twice a day. Needs good follow-up at [facility]. 6. Continue Lovenox. Patient admitted for pancreatitis. He is pending clinical improvement. GI on board.
[2018-07-25 17:27] LABS: Glucose,Whole Blood 106 mg/dL (75-99)
[2018-07-25] MEDS ORDERED: [UNRECOGNIZED DRUG - REMARK] IV ONE ×7 (19:00)
[2018-07-25] MEDS: FAT EMULSION 20% 250 ML IV SCH (20:52)
[2018-07-25] MEDS: SERTRALINE 50 MG TAB PO SCH (21:39)
[2018-07-25] MEDS: METHADONE 5 MG TAB PO SCH (21:39)
[2018-07-25] MEDS: traZODone HCL 100 MG TAB PO SCH (21:40)
[2018-07-26] MEDS: HYDROmorphone 2 MG/ML 1 ML SYRINGE IVP PRN ×8 (00:20→21:40)
[2018-07-26 00:27] LABS: Glucose,Whole Blood 138 mg/dL (75-99)
[2018-07-26] MEDS ORDERED: [UNRECOGNIZED DRUG - OTHER] IV ONE (02:00)
[2018-07-26] MEDS ORDERED: SODIUM CHLORIDE IV ONE (02:00)
[2018-07-26] MEDS ORDERED: MAGNESIUM SULFATE IV ONE (02:00)
[2018-07-26] MEDS: SODIUM CHLORIDE 0.9% 1,000 ML IV SCH ×3 (02:48→23:06)
[2018-07-26] MEDS: diphenhydrAMINE 50 MG/ML 1 ML VIAL IVP PRN ×4 (03:04→21:38)
[2018-07-26 06:42] LABS: Glucose,Whole Blood 149 mg/dL (75-99)
[2018-07-26 07:17] LABS: Anion Gap 6 mmol/L; Blood Urea Nitrogen 36 mg/dL (9-20); Calcium 8.9 mg/dL (8.4-10.2); Carbon Dioxide 27 mmol/L (22-30); Chloride 105 mmol/L (98-107); Glucose 111 mg/dL (74-99); Magnesium 1.9 mg/dL (1.6-2.3); Potassium 4.4 mmol/L (3.5-5.1); Sodium 138 mmol/L (137-145)
--- NOTE | 2018-07-26 07:24 | P.CONS ---
History of Present Illness - Reason for Consult Consult date: 07/25/18 Pancreatitis Requesting physician: Casey Martinez - Chief Complaint Abdominal pain - History of Present Illness 48-year-old gentleman admitted with abdominal pain with an underlying extensive surgical history that includes multiorgan transplantation secondary to congen ital pseudo-obstructions performed at [facility] including the stomach small bowel duodenum and pancreas maintained on nightly TPN, as well as an additional underlying history of multiple episodes of pancreatitis, adrenal insufficiency, chronic mesenteric vein thrombosis, DVT left subclavian vein axillary and brachial cephalic, chronic anemia, chronic diarrhea, paroxysmal atrial fibrillation, sleep apnea, GI bleeds, chronic renal failure, gastroparesis, and pleurisy. She reports initially having some abdominal pain which he felt would go away. However the pain was constant stabbing and sharp in nature and persisted. He subsequently decided to present to the hospital for treatment as he is had numerous episodes of pancreatitis in the past. In discussion with the patient is unclear what has triggered the episodes of pancreatitis and the plan at this time is for continued evaluation at the [facility] in consideration for possible MRCP and/or ERCP. On presentation to the hospital laboratory evaluation was significant for a WBC count 14.6, hemoglobin 11.3, platelet count 163,000, INR 0.9, amylase 548 and lipase 3140. Review of Systems REVIEW OF SYSTEMS: CONSTITUTIONAL: Denies any fevers, chills, weight change or fatigue. CARDIOVASCULAR: Denies any chest pain, palpitations high or low blood pressures RESPIRATORY: Denies any shortness of breath, hemoptysis or cough. GENITOURINARY: No dysuria or hematuria. MUSCULOSKELETAL: No weakness reported. SKIN: Denies any new rashes or lesions, jaundice or pallor. PSYCHIATRIC: Denies any depression or anxiety. NEUROLOGY: Denies headache, denies any new focal deficits. EARS/NOSE/THROAT: No recent hearing change, congestion, nasal discharge or sore throat. EYES: No pain in eyes, discharge or change in vision. GASTROINTESTINAL: As per HPI. 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 blood clot in aortic graft History of Any Multi-Drug Resistant Organisms: C-DIFF, MRSA Year Discovered:: MRSA sputum 05/29/17 MDRO Source:: C-diff stool 05/11/18 Past Surgical History: Bowel Resection, Cholecystectomy Additional Past Surgical History / Comment(s): Multivisceral organ transplant i ncluding bowel, doudenum,pancreas, and stomach at [facility]- follows thru [facility],spleen removed, left knee arthrotomy, EGD, colonoscopy, ERCP with insertion of a pancreatic duct stent- since removed . ileostomy in october 2017, dehised x 2, repair of fistula, second fistula appeared may 01, 2018, pt currently has ostomy bag in which fistula drained into, colonized c-diff, MRSA in sputum a year ago, as valve surgery, varghese catheter. Past Anesthesia/Blood Transfusion Reactions: No Reported Reaction Additional Past Anesthesia/Blood Transfusion Reaction / Comm: STATES R/T TO MULTIPLE SX HE REQUIRES A LOT OF MEDICATION for anesthesia. He has had multiple blood transfusions without reaction. Past Psychological History: Anxiety, Depression Smoking Status: Former smoker Past Alcohol Use History: None Reported Past Drug Use History: None Reported - Past Family History Mother History Unknown: Yes Additional Family Medical History / Comment(s): pt is adopted, does not know any hx Father History Unknown: Yes Additional Family Medical History / Comment(s): Pt is adopted and knows no history. Medications and Allergies Home Medications Medication Instructions Recorded Confirmed Type Ferrous Gluconate 325 mg PO BID 09/02/13 07/24/18 History Sertraline [Zoloft] 100 mg PO DAILY 09/02/13 07/24/18 History Sulfamethoxazole/Trimethoprim 0.5 tab PO MOWEFR 08/02/16 07/24/18 History [Bactrim DS 800-160 mg] Albuterol Sulfate [Proair Hfa] 2 puff INHALATION RT-Q6H PRN 12/19/16 07/24/18 History traZODone HCL 200 mg PO HS 12/19/16 07/24/18 History Sucralfate [Carafate] 1 gm PO BID 03/23/17 07/24/18 History Budesonide/Formoterol Fumarate 2 puff INHALATION RT-BID 05/17/17 07/24/18 History [Symbicort 160-4.5 Mcg Inhaler] Methadone [Dolophine] 10 mg PO QAM 05/17/17 07/24/18 History QUEtiapine [SEROquel] 25 mg PO DAILY 07/23/17 07/24/18 History Flecainide Acetate [Tambocor] 150 mg PO Q12H 12/12/17 07/24/18 History Hydrocortisone [Cortef] 30 mg PO TID 12/12/17 07/24/18 History Nystatin 100,000 Unit/ml Susp 500,000 unit PO QID 12/12/17 07/24/18 History [Mycostatin Oral Susp] clonazePAM [Klonopin ODT [place]fer] 0.25 mg PO HS 12/12/17 07/24/18 History HYDROcodone/APAP 10-325MG [[place] 1 tab PO TID PRN 01/10/18 07/24/18 History 10-325] Calcium Carbonate [Tums] 500 mg PO QID 01/22/18 07/24/18 History Cholecalciferol [Vitamin D3] 5,000 unit PO MOWEFR 01/22/18 07/24/18 History Ipratropium [place] [Atrovent Hfa] 2 puff INHALATION RT-BID PRN 01/22/18 07/24/18 History Methadone [Dolophine] 5 mg PO HS 01/22/18 07/24/18 History Pantoprazole [Protonix] 40 mg PO BID 05/17/18 07/24/18 History Sertraline [Zoloft] 50 mg PO HS 05/17/18 07/24/18 History Gabapentin 600 mg PO TID 06/18/18 07/24/18 History Tpn 1 dose IV DAILY@1800 06/18/18 07/24/18 History Enoxaparin Sodium 100 mg SQ BID 07/18/18 07/24/18 History Tacrolimus [Prograf] 4 mg PO QAM 07/18/18 07/24/18 History Tacrolimus [Prograf] 3 mg PO HS 07/24/18 07/24/18 History Allergies Allergy/AdvReac Type Severity Reaction Status Date / Time aspirin Allergy GI Verified 07/24/18 09:11 BLEEDING , ABDOMINAL PAIN heparin AdvReac abdominal Verified 07/24/18 09:11 pain , GI bleeding ketorolac tromethamine AdvReac migraines Verified 07/24/18 09:11 [From Toradol] morphine AdvReac Itching Verified 07/24/18 09:11 Physical Exam Vitals: Vital Signs Temp Pulse Resp BP Pulse Ox 07/25/18 18:10 80 16 07/25/18 13:16 97.7 F 86 16 112/75 96 07/25/18 12:51 86 16 07/25/18 05:19 97.4 F L 95 18 145/82 98 07/24/18 21:16 97.0 F L 72 18 118/69 98 Intake and Output 07/25/18 07/25/18 07/25/18 06:59 14:59 22:59 Intake Total 1400 Output Total 850 Balance 550 Intake: IV 1400 Magnesium Sulfate gm 0.5 1400 gm Sodium Chloride 2.5MEQ /ml Vial 30 meq In Amino Acid 5%-D15w+Lytes*E* 1, 000 ml @ 175 mls/hr IV . Q5H48M ONE Rx#:[id number] Output: Urine 550 Stool 300 Other: Voiding Method Urinal Toilet General appearance: The patient is alert, oriented, in no acute distress. HET: Head is normocephalic and atraumatic. Pupils are equal and reactive. Oropharynx is clear without lesions. Neck: Supple without lymphadenopathy. Trachea midline. Heart: S1 S2. Regular rate and rhythm. Lungs: No crackles or wheezes are heard. Abdomen: Soft, midline wound with ostomy with drainage. Right sided ostomy intact mildly tender, nondistended with bowel sounds. No peritoneal signs. No palpable organomegaly or masses. Extremities: Normal skin color and turgor. No cyanosis, rash, ulceration, clubbing, or edema. Radial and pedal pulses are 2/4 bilaterally. Neurological: No focal deficits. Strength and sensation are grossly intact. Results CBC & Chem 7: 07/24/18 07:45 07/25/18 08:10 Labs: Abnormal Lab Results - Last 24 Hours (Table) 07/25/18 07/25/18 07/25/18 Range/Units 00:24 06:04 08:10 BUN 47 H (9-20) mg/dL Glucose 155 H (74-99) mg/dL POC Glucose (mg/dL) 183 H 214 H (75-99) mg/dL Amylase 266 H (30-110) U/L Lipase 635 H (23-300) U/L 07/25/18 Range/Units 17:26 BUN (9-20) mg/dL Glucose (74-99) mg/dL POC Glucose (mg/dL) 106 H (75-99) mg/dL Amylase (30-110) U/L Lipase (23-300) U/L Microbiology - Last 24 Hours (Table) 07/24/18 07:45 Blood Culture - Preliminary Blood No Growth after 24 hours Assessment and Plan (1) Acute pancreatitis Narrative/Plan: Acute recurrent pancreatitis of unknown etiology in a patient with a complicated history including multiorgan visceral transplant. Patient presenting with complaints of persistent sharp abdominal pain with associated elevation of lipa se of 448 and lipase 3140 on presentation. Current Visit: No Status: Acute Code(s): K85.90 - ACUTE PANCREATITIS WITHOUT NECROSIS OR INFECTION, UNSP SNOMED Code(s): 745339967 Plan: Supportive care Continue nutritional support with TPN Okay for liquids with abdominal pain improved Continue to monitor signs and symptoms Continue fluid hydration Continue pain control Patient is scheduled for follow-up with [facility] with discussion for future MRCP and/or ERCP for further evaluation No plans for endoscopic evaluation at this time Thank you for allowing us to participate in the care of the patient we will continue to follow
[2018-07-26] MEDS: QUEtiapine 25 MG TAB PO SCH (08:42)
[2018-07-26] MEDS: PANTOPRAZOLE 40 MG TABLET PO SCH ×2 (08:42→17:13)
[2018-07-26] MEDS: SERTRALINE 100 MG TAB PO SCH (08:42)
[2018-07-26] MEDS: ENOXAPARIN 100 MG/ML SYRINGE SQ SCH ×2 (08:43→21:43)
[2018-07-26] MEDS: TACROLIMUS 1 MG CAP PO SCH ×2 (08:43→21:44)
[2018-07-26] MEDS: FLECAINIDE 50 MG TAB PO SCH ×2 (08:44→21:44)
[2018-07-26] MEDS: HYDROCORTISONE 10 MG TAB PO SCH ×3 (08:44→21:44)
[2018-07-26] MEDS: GABAPENTIN 300 MG CAP PO SCH ×3 (08:45→20:27)
[2018-07-26] MEDS: METHADONE 10 MG TAB PO SCH (08:45)
[2018-07-26 11:58] LABS: Glucose,Whole Blood 109 mg/dL (75-99)
--- NOTE | 2018-07-26 15:28 | P.PN ---
Subjective Progress Note Date: 07/26/18 Principal diagnosis: Pancreatitis Patient seen and examined. No acute events overnight. Patient does complain of abdominal pain, unchanged from yesterday. Reports mild nausea but no vomiting. Tolerating clear liquid diet, but with decreased appetite. Denies any chest pain, shortness of breath or palpitations. No fever or chills. Objective - Vital Signs Vital signs: Vital Signs Temp 97.6 F 07/26/18 05:13 Pulse 88 07/26/18 05:13 Resp 16 07/26/18 05:13 BP 148/79 07/26/18 05:13 Pulse Ox 94 L 07/25/18 22:16 Intake & Output 07/25/18 07/26/18 07/26/18 18:59 06:59 18:59 Intake Total 1400 900 450 Output Total 850 600 200 Balance 550 300 250 Weight 89.811 kg Intake: IV 1400 Magnesium Sulfate gm 0.5 1400 gm Sodium Chloride 2.5MEQ /ml Vial 30 meq In Amino Acid 5%-D15w+Lytes*E* 1, 000 ml @ 175 mls/hr IV . Q5H48M ONE Rx#:[id number] Oral 900 450 Output: Urine 550 Stool 300 600 Other 200 Other: Voiding Method Toilet Toilet # Voids 2 400 # Bowel Movements 2 - Exam General: [non toxic], [no distress], [appears at stated age] Derm: [warm], [dry] Head: [atraumatic], [normocephalic], [symmetric] Eyes: [EOMI], [no lid lag], [anicteric sclera] Mouth: [no lip lesion], [mucus membranes moist] Cardiovascular: [S1S2 reg], [no murmur], [positive DP pulse bilateral] Lungs: [CTA bilateral], [no rhonchi, no rales] , [no accessory muscle use] Abdominal: [soft], [epigastric tenderness without rebound], [no guarding], [colostomy bag full of stool], [surgical scar, well-healed] Ext: [no gross muscle atrophy], [no edema], [no contractures] Neuro: [no focal neuro deficits] Psych: [Alert], [oriented], [appropriate affect] - Labs CBC & Chem 7: 07/24/18 07:45 07/26/18 06:20 Labs: Abnormal Lab Results - Last 24 Hours (Table) 07/25/18 07/26/18 07/26/18 Range/Units 17:26 00:03 06:20 BUN 36 H (9-20) mg/dL Glucose 111 H (74-99) mg/dL POC Glucose (mg/dL) 106 H 138 H (75-99) mg/dL 07/26/18 07/26/18 Range/Units 06:37 11:52 BUN (9-20) mg/dL Glucose (74-99) mg/dL POC Glucose (mg/dL) 149 H 109 H (75-99) mg/dL Microbiology - Last 24 Hours (Table) 07/24/18 07:45 Blood Culture - Preliminary Blood No Growth after 48 hours Assessment and Plan Assessment: Assessment and Plan 1. Acute pancreatitis 2. Atrial fibrillation 3. Elevated BUN 4. COPD 5. History of multivisceral organ transplant 6. History of DVT 1. Unknown etiology. Amylase 548-266, lipase 3140-635. T bili, AST and ALTs are within normal limits. Alkaline phosphatase is slightly elevated at 246. Advance to CLD. Pain control with Dilaudid 2 mg IV every 3 hours. Zofran as needed for nausea and vomiting. Continue normal saline at 100 mL/h. Protonix 40 mg IV daily. 2. Rate controlled with metoprolol and flecainide. Continue Lovenox. Telemetry monitoring. 3. BUN 68-47-36, creatinine within normal limits. Likely secondary to dehydration. Continue normal saline at 100 mL per hour. Daily BMP. 4. DuoNeb 4 times a day as needed for shortness of breath or wheezing. Oxygen per nasal cannula to maintain an O2 saturation greater than 92%. 5. Continue tacrolimus 5 mg by mouth twice a day. Needs good follow-up at [facility]. 6. Continue Lovenox. Patient admitted for pancreatitis. He is pending clinical improvement. GI on board.
[2018-07-26 17:28] LABS: Glucose,Whole Blood 109 mg/dL (75-99)
[2018-07-26] MEDS ORDERED: [UNRECOGNIZED DRUG - REMARK] IV ONE ×7 (19:00)
[2018-07-26] MEDS: clonazePAM 0.5 MG TAB PO SCH (20:28)
[2018-07-26] MEDS: SERTRALINE 50 MG TAB PO SCH (20:29)
[2018-07-26] MEDS: traZODone HCL 100 MG TAB PO SCH (20:29)
[2018-07-26] MEDS: METHADONE 5 MG TAB PO SCH (20:29)
[2018-07-27 00:23] LABS: Glucose,Whole Blood 178 mg/dL (75-99)
[2018-07-27] MEDS: HYDROmorphone 2 MG/ML 1 ML SYRINGE IVP PRN ×8 (01:13→22:25)
[2018-07-27] MEDS ORDERED: [UNRECOGNIZED DRUG - OTHER] IV ONE (02:00)
[2018-07-27] MEDS ORDERED: SODIUM CHLORIDE IV ONE (02:00)
[2018-07-27] MEDS ORDERED: MAGNESIUM SULFATE IV ONE (02:00)
[2018-07-27] MEDS: diphenhydrAMINE 50 MG/ML 1 ML VIAL IVP PRN ×4 (04:30→22:25)
[2018-07-27 06:00] LABS: Glucose,Whole Blood 205 mg/dL (75-99)
[2018-07-27 07:38] LABS: Amylase 122 U/L (30-110); Anion Gap 3 mmol/L; Blood Urea Nitrogen 31 mg/dL (9-20); Calcium 8.8 mg/dL (8.4-10.2); Carbon Dioxide 31 mmol/L (22-30); Chloride 106 mmol/L (98-107); Glucose 109 mg/dL (74-99); Lipase 177 U/L (23-300); Magnesium 1.8 mg/dL (1.6-2.3); Potassium 4.5 mmol/L (3.5-5.1); Sodium 140 mmol/L (137-145)
[2018-07-27] MEDS: PANTOPRAZOLE 40 MG TABLET PO SCH ×2 (07:52→16:38)
[2018-07-27] MEDS: QUEtiapine 25 MG TAB PO SCH (07:52)
[2018-07-27] MEDS: GABAPENTIN 300 MG CAP PO SCH ×3 (07:52→19:44)
[2018-07-27] MEDS: SERTRALINE 100 MG TAB PO SCH (07:52)
[2018-07-27] MEDS: METHADONE 10 MG TAB PO SCH (07:52)
[2018-07-27] MEDS: ENOXAPARIN 100 MG/ML SYRINGE SQ SCH ×2 (07:52→19:42)
[2018-07-27] MEDS: FLECAINIDE 50 MG TAB PO SCH ×2 (07:53→19:42)
[2018-07-27] MEDS: HYDROCORTISONE 10 MG TAB PO SCH ×3 (07:53→19:44)
[2018-07-27] MEDS: TACROLIMUS 1 MG CAP PO SCH ×2 (07:54→19:43)
[2018-07-27] MEDS: SODIUM CHLORIDE 0.9% 1,000 ML IV SCH ×2 (07:56→16:43)
[2018-07-27 11:53] LABS: Glucose,Whole Blood 121 mg/dL (75-99)
--- NOTE | 2018-07-27 12:52 | P.PN ---
Subjective Progress Note Date: 07/27/18 Principal diagnosis: pancreatitis Patient was seen and examined. No acute events overnight. Patient continues to complain of epigastric pain, 10 out of 10 in severity radiating to the back. Patient reports that the pain has not improved too much since admission. He is gone back to being nothing by mouth. He denies any nausea or vomiting. No fever or chills. Objective - Vital Signs Vital signs: Vital Signs Temp 98.3 F 07/27/18 05:00 Pulse 81 07/27/18 05:00 Resp 18 07/27/18 05:00 BP 131/71 07/27/18 05:00 Pulse Ox 97 07/27/18 05:00 Intake & Output 07/26/18 07/27/18 07/27/18 18:59 06:59 18:59 Intake Total 1610 850 Output Total 1600 900 500 Balance 10 -50 -500 Weight 89.811 kg Intake: Oral 1610 850 Output: Urine 900 400 Stool 1400 100 Other 200 Other: Voiding Method Toilet # Voids 2 3 1 # Bowel Movements 0 - Exam General: [non toxic], [no distress], [appears at stated age] Derm: [warm], [dry] Head: [atraumatic], [normocephalic], [symmetric] Eyes: [EOMI], [no lid lag], [anicteric sclera] Mouth: [no lip lesion], [mucus membranes moist] Cardiovascular: [S1S2 reg], [no murmur], [positive DP pulse bilateral] Lungs: [CTA bilateral], [no rhonchi, no rales] , [no accessory muscle use] Abdominal: [soft], [epigastric tenderness without rebound], [no guarding], [colostomy bag full of stool], [surgical scar, well-healed] Ext: [no gross muscle atrophy], [no edema], [no contractures] Neuro: [no focal neuro deficits] Psych: [Alert], [oriented], [appropriate affect] - Labs CBC & Chem 7: 07/24/18 07:45 07/27/18 07:10 Labs: Abnormal Lab Results - Last 24 Hours (Table) 07/26/18 07/27/18 07/27/18 Range/Units 17:17 00:18 05:51 Carbon Dioxide (22-30) mmol/L BUN (9-20) mg/dL Glucose (74-99) mg/dL POC Glucose (mg/dL) 109 H 178 H 205 H (75-99) mg/dL Amylase (30-110) U/L 07/27/18 07/27/18 Range/Units 07:10 11:50 Carbon Dioxide 31 H (22-30) mmol/L BUN 31 H (9-20) mg/dL Glucose 109 H (74-99) mg/dL POC Glucose (mg/dL) 121 H (75-99) mg/dL Amylase 122 H (30-110) U/L Microbiology - Last 24 Hours (Table) 07/24/18 07:45 Blood Culture - Preliminary Blood No Growth after 72 hours Assessment and Plan Assessment: Assessment and Plan 1. Acute pancreatitis 2. Atrial fibrillation 3. Elevated BUN 4. COPD 5. History of multivisceral organ transplant 6. History of DVT 1. Unknown etiology. Amylase 548-266-122, lipase 3886-882-[id number] normal limits. T bili, AST and ALTs are within normal limits. Alkaline phosphatase is slightly elevated at 246. NPO and advance diet as tolerated. Pain control with Dilaudid 2 mg IV every 3 hours. Zofran as needed for nausea and vomiting. Continue normal saline at 100 mL/h. Protonix 40 mg IV daily. follow GI recommendations. 2. Rate controlled with metoprolol and flecainide. Continue Lovenox. Telemetry monitoring. 3. BUN 68-47-36-31, creatinine within normal limits. Likely secondary to dehydration. Continue normal saline at 100 mL per hour. Daily BMP. 4. DuoNeb 4 times a day as needed for shortness of breath or wheezing. Oxygen per nasal cannula to maintain an O2 saturation greater than 92%. 5. Continue tacrolimus 5 mg by mouth twice a day. Needs good follow-up at [facility]. 6. Continue Lovenox. Patient admitted for pancreatitis. He is pending clinical improvement. GI on board.
[2018-07-27] MEDS ORDERED: ONDANSETRON 4 MG/2 ML VIAL IVP PRN (14:15)
[2018-07-27] MEDS: MAGNESIUM SULFATE-D5W PMX 1 GM in DEXTROSE/WATER 1 100ML.BAG IVPB SCH ×2 (14:50→16:08)
[2018-07-27 17:38] LABS: Glucose,Whole Blood 129 mg/dL (75-99)
[2018-07-27] MEDS ORDERED: [UNRECOGNIZED DRUG - REMARK] IV ONE ×7 (19:00)
[2018-07-27] MEDS: clonazePAM 0.5 MG TAB PO SCH (19:42)
[2018-07-27] MEDS: traZODone HCL 100 MG TAB PO SCH (19:43)
[2018-07-27] MEDS: METHADONE 5 MG TAB PO SCH (19:43)
[2018-07-27] MEDS: SERTRALINE 50 MG TAB PO SCH (19:43)
[2018-07-28 00:03] LABS: Glucose,Whole Blood 221 mg/dL (75-99)
[2018-07-28] MEDS: HYDROmorphone 2 MG/ML 1 ML SYRINGE IVP PRN ×8 (01:31→22:51)
[2018-07-28] MEDS ORDERED: SODIUM CHLORIDE IV ONE (02:00)
[2018-07-28] MEDS ORDERED: MAGNESIUM SULFATE IV ONE (02:00)
[2018-07-28] MEDS ORDERED: [UNRECOGNIZED DRUG - OTHER] IV ONE (02:00)
[2018-07-28] MEDS: diphenhydrAMINE 50 MG/ML 1 ML VIAL IVP PRN ×2 (04:43→10:35)
[2018-07-28] MEDS: SODIUM CHLORIDE 0.9% 1,000 ML IV SCH ×3 (04:43→22:51)
[2018-07-28 05:54] LABS: Glucose,Whole Blood 154 mg/dL (75-99)
[2018-07-28] MEDS: ENOXAPARIN 100 MG/ML SYRINGE SQ SCH ×2 (07:42→20:57)
[2018-07-28] MEDS: HYDROCORTISONE 10 MG TAB PO SCH ×3 (07:43→20:57)
[2018-07-28] MEDS: FLECAINIDE 50 MG TAB PO SCH ×2 (07:43→20:58)
[2018-07-28] MEDS: TACROLIMUS 1 MG CAP PO SCH ×2 (07:43→20:57)
[2018-07-28] MEDS: METHADONE 10 MG TAB PO SCH ×2 (07:44→20:58)
[2018-07-28] MEDS: GABAPENTIN 300 MG CAP PO SCH ×3 (07:44→20:57)
[2018-07-28] MEDS: SERTRALINE 100 MG TAB PO SCH (07:54)
[2018-07-28] MEDS: QUEtiapine 25 MG TAB PO SCH (07:54)
[2018-07-28] MEDS: PANTOPRAZOLE 40 MG TABLET PO SCH ×2 (07:54→16:19)
[2018-07-28 09:19] LABS: Anion Gap 5 mmol/L; Blood Urea Nitrogen 34 mg/dL (9-20); Calcium 8.5 mg/dL (8.4-10.2); Carbon Dioxide 30 mmol/L (22-30); Chloride 104 mmol/L (98-107); Glucose 131 mg/dL (74-99); Phosphorus 3.6 mg/dL (2.5-4.5); Potassium 4.5 mmol/L (3.5-5.1); Sodium 139 mmol/L (137-145)
[2018-07-28] MEDS: SULFAMETHOX-TMP 800-160MG 1 EACH TAB PO SCH (10:33)
[2018-07-28 11:55] LABS: Glucose,Whole Blood 151 mg/dL (75-99)
[2018-07-28] MEDS: diphenhydrAMINE 25 MG CAP PO PRN ×2 (16:19→22:51)
[2018-07-28 17:23] LABS: Glucose,Whole Blood 102 mg/dL (75-99)
[2018-07-28] MEDS ORDERED: [UNRECOGNIZED DRUG - REMARK] IV ONE ×7 (19:00)
[2018-07-28] MEDS: HYDROcodone/APAP 10-325MG 1 EACH TAB PO PRN (19:19)
[2018-07-28] MEDS: FAT EMULSION 20% 250 ML IV SCH (19:38)
[2018-07-28] MEDS: clonazePAM 0.5 MG TAB PO SCH (20:58)
[2018-07-28] MEDS: traZODone HCL 100 MG TAB PO SCH (20:58)
[2018-07-28] MEDS: SERTRALINE 50 MG TAB PO SCH (20:58)
[2018-07-28] MEDS: METHADONE 5 MG TAB PO SCH (20:59)
--- NOTE | 2018-07-28 23:02 | P.PN ---
Subjective Progress Note Date: 07/28/18 Principal diagnosis: Pancreatitis Patient seen lying in bed. Currently nothing by mouth. Currently reporting that her abdominal pain is slightly improved but still persistent. No nausea vomiting reported. Objective - Vital Signs Vital signs: Vital Signs Temp 98.4 F 07/28/18 20:31 Pulse 101 H 07/28/18 20:31 Resp 18 07/28/18 20:31 BP 133/76 07/28/18 20:31 Pulse Ox 91 L 07/28/18 20:31 Intake & Output 07/28/18 07/28/18 07/29/18 06:59 18:59 06:59 Output Total 1500 1150 Balance -1500 -1150 Weight 88.9 kg 88.9 kg Output: Urine 1500 950 Stool 200 Other: Voiding Method Toilet # Voids 1 - Exam On physical examination, patient appears comfortable in no apparent distress. HEAD: Normocephalic, atraumatic. EYES: No scleral icterus. No conjunctival injection. MOUTH: No lesions, tongue midline. NECK: Trachea midline, no gross abnormalities. CHEST: Clear to auscultation with no wheezing or rhonchi appreciated. HEART: Regular rate and rhythm. ABDOMEN: Soft, appears intact. Bowel sounds are positive. No organomegaly. No guarding or rigidity. EXTREMITIES: No pedal edema. SKIN: No rashes, no jaundice. NEUROLOGIC: Alert and oriented x3. No focal deficits. - Labs CBC & Chem 7: 07/24/18 07:45 07/28/18 08:35 Labs: Abnormal Lab Results - Last 24 Hours (Table) 07/28/18 07/28/18 07/28/18 Range/Units 00:02 05:53 08:35 BUN 34 H (9-20) mg/dL Glucose 131 H (74-99) mg/dL POC Glucose (mg/dL) 221 H 154 H (75-99) mg/dL 07/28/18 07/28/18 Range/Units 11:52 17:21 BUN (9-20) mg/dL Glucose (74-99) mg/dL POC Glucose (mg/dL) 151 H 102 H (75-99) mg/dL Microbiology - Last 24 Hours (Table) 07/24/18 07:45 Blood Culture - Preliminary Blood No Growth after 96 hours Assessment and Plan (1) Acute pancreatitis Narrative/Plan: Acute recurrent pancreatitis of unknown etiology in a patient with a complicated history including multiorgan visceral transplant. Patient presenting with complaints of persistent sharp abdominal pain with associated elevation of amylase and lipase on presentation which has trended down Current Visit: No Status: Acute Code(s): K85.90 - ACUTE PANCREATITIS WITHOUT NECROSIS OR INFECTION, UNSP SNOMED Code(s): 339719567 Plan: Supportive care Continue nutritional support with TPN Okay for liquids when abdominal pain improved Continue to monitor signs and symptoms Continue fluid hydration Continue pain control Patient is scheduled for follow-up with [facility] with discussion for future MRCP and/or ERCP for further evaluation No plans for endoscopic evaluation at this time If abdominal pain persists can consider repeat imaging of the abdomen Thank you for allowing us to participate in the care of the patient we will continue to follow
[2018-07-29 00:05] LABS: Glucose,Whole Blood 272 mg/dL (75-99)
--- NOTE | 2018-07-29 00:37 | PN ---
PROGRESS NOTE DATE OF SERVICE: 07/28/2018. PRESENTING COMPLAINT: Abdominal pain. INTERVAL HISTORY: This patient with multiple medical problems yet again presented with acute pancreatitis, getting his TPN lipids. Tolerated some clear liquids. Still having significant abdominal pain. CURRENT MEDICATIONS: Reviewed and include TPN, lipids and anti-rejection medications. PHYSICAL EXAMINATION: VITAL SIGNS: Temperature 98.5, pulse 102, respiratory 18, blood pressure 120/76, pulse ox 98 percent on room air. GENERAL APPEARANCE: Lying in bed, tired-appearing. EYES: Pupils equal. Conjunctivae normal. NECK: JVD not raised. Mass not palpable. RESPIRATORY: Effort normal. LUNGS: Diminished breath sounds. CARDIOVASCULAR: First and second sounds no edema. ABDOMEN: Some tenderness. No guarding, rigidity, has a ileostomy bag with some stool and a bag over the fistula site. PSYCHIATRY: Alert and oriented x3. Mood and affect anxious. INVESTIGATIONS: Potassium 4.5, BUN 34, creatinine 0.93. Accu-Cheks are noted. Amylase 122, lipase is 177. ASSESSMENT: 1. Acute severe recurrent pancreatitis with improvement, patient still having abdominal pain. 2. Chronic obstructive pulmonary disease in an ex-smoker. 3. Four organ transplant 2003 including small bowel, pancreas, duodenum, stomach being followed at [facility] and [facility]. 4. Multiple abdominal fistulas, a drainage bag in place, being followed by [facility]. 5. Gastroesophageal reflux disease. 6. Chronic gastroparesis. 7. Chronic mesenteric vein thrombosis, but the patient is on anticoagulation. 8. Immunosuppressed age. 9. Chronic kidney disease stage 3 from nephrosclerosis. 10.Ileostomy bag. Care was discussed with the patient. Continue current medication and treatment plan. Diet will be advanced as tolerated. Still having some pain, but the patient pancreatic numbers have come down. Prognosis is guarded. MMODL / IJN: [id number] /
[2018-07-29] MEDS: HYDROmorphone 2 MG/ML 1 ML SYRINGE IVP PRN ×7 (01:52→22:30)
[2018-07-29] MEDS ORDERED: SODIUM CHLORIDE IV ONE (02:00)
[2018-07-29] MEDS ORDERED: [UNRECOGNIZED DRUG - OTHER] IV ONE (02:00)
[2018-07-29] MEDS ORDERED: MAGNESIUM SULFATE IV ONE (02:00)
[2018-07-29] MEDS: HYDROcodone/APAP 10-325MG 1 EACH TAB PO PRN ×2 (03:31→14:15)
[2018-07-29] MEDS: diphenhydrAMINE 25 MG CAP PO PRN ×2 (05:00→11:56)
[2018-07-29 06:03] LABS: Glucose,Whole Blood 250 mg/dL (75-99)
[2018-07-29] MEDS: METHADONE 10 MG TAB PO SCH (08:14)
[2018-07-29] MEDS: ENOXAPARIN 100 MG/ML SYRINGE SQ SCH (08:14)
[2018-07-29] MEDS: PANTOPRAZOLE 40 MG TABLET PO SCH ×2 (08:14→16:54)
[2018-07-29] MEDS: FLECAINIDE 50 MG TAB PO SCH ×2 (08:15→22:31)
[2018-07-29] MEDS: GABAPENTIN 300 MG CAP PO SCH ×3 (08:15→20:36)
[2018-07-29] MEDS: SERTRALINE 100 MG TAB PO SCH (08:16)
[2018-07-29] MEDS: HYDROCORTISONE 10 MG TAB PO SCH ×3 (08:16→21:38)
[2018-07-29] MEDS: QUEtiapine 25 MG TAB PO SCH (08:16)
[2018-07-29] MEDS: TACROLIMUS 1 MG CAP PO SCH ×2 (08:17→21:40)
[2018-07-29 10:43] LABS: Anion Gap 8 mmol/L; Blood Urea Nitrogen 31 mg/dL (9-20); Calcium 8.9 mg/dL (8.4-10.2); Carbon Dioxide 32 mmol/L (22-30); Chloride 97 mmol/L (98-107); Glucose 152 mg/dL (74-99); Magnesium 1.7 mg/dL (1.6-2.3); Phosphorus 2.5 mg/dL (2.5-4.5); Sodium 137 mmol/L (137-145)
[2018-07-29 11:40] LABS: Glucose,Whole Blood 118 mg/dL (75-99)
--- NOTE | 2018-07-29 12:03 | P.PN ---
Subjective Progress Note Date: 07/29/18 Principal diagnosis: Pancreatitis Reports increased abdominal pain. Lipase normalized. Afebrile. BUN 31. CBC requested results pending. Midline ostomy bag with dark Coca-Cola colored fluid slightly blood tinged. Objective - Vital Signs Vital signs: Vital Signs Temp 99.6 F 07/29/18 09:41 Pulse 96 07/29/18 09:41 Resp 16 07/29/18 09:41 BP 122/69 07/29/18 09:41 Pulse Ox 94 L 07/29/18 09:41 Intake & Output 07/28/18 07/29/18 07/29/18 18:59 06:59 18:59 Intake Total 0 Output Total 1150 1250 200 Balance -1150 -1250 -200 Weight 88.9 kg Intake: Oral 0 Output: Urine 950 1250 Stool 200 200 Other: Voiding Method Toilet # Voids 1 - Exam General appearance: The patient is alert, oriented, in no acute distress. HET: Head is normocephalic and atraumatic. Pupils are equal and reactive. O ropharynx is clear without lesions. Neck: Supple without lymphadenopathy. Trachea midline. Heart: S1 S2. Regular rate and rhythm. Lungs: No crackles or wheezes are heard. Abdomen: Soft, moderate tenderness to the mid abdomen to ostomies right side with yellow stool midline ostomy with dark colored Coca-Cola fluid blood-tinged, nondistended with bowel sounds. No peritoneal signs. No palpable organomegaly or masses. Extremities: Normal skin color and turgor. No cyanosis, rash, ulceration, cl ubbing, or edema. Radial and pedal pulses are 2/4 bilaterally. Neurological: No focal deficits. Strength and sensation are grossly intact. - Labs CBC & Chem 7: 07/29/18 17:21 07/29/18 09:58 Labs: Abnormal Lab Results - Last 24 Hours (Table) 07/28/18 07/28/18 07/29/18 Range/Units 11:52 17:21 00:04 Chloride (98-107) mmol/L Carbon Dioxide (22-30) mmol/L BUN (9-20) mg/dL Glucose (74-99) mg/dL POC Glucose (mg/dL) 151 H 102 H 272 H (75-99) mg/dL 07/29/18 07/29/1819 Range/Units 06:01 09:58 11:28 Chloride 97 L (98-107) mmol/L Carbon Dioxide 32 H (22-30) mmol/L BUN 31 H (9-20) mg/dL Glucose 152 H (74-99) mg/dL POC Glucose (mg/dL) 250 H 118 H (75-99) mg/dL Microbiology - Last 24 Hours (Table) 07/24/18 07:45 Blood Culture - Preliminary Blood No Growth after 120 hours Assessment and Plan (1) Pancreatitis of transplanted pancreas Narrative/Plan: Acute recurrent pancreatitis of unknown etiology in a patient with a consultativ e surgical history including multiorgan visceral transplant. Still complaining of persistent sharp abdominal pain with resolution of lipase. Current Visit: Yes Status: Acute Code(s): T86.898 - OTHER COMPLICATIONS OF OTHER TRANSPLANTED TISSUE; K85.90 - ACUTE PANCREATITIS WITHOUT NECROSIS OR INFECTION, UNSP SNOMED Code(s): 57106483 Plan: 1. Midline ostomy with dark-colored Coca-Cola fluid with a mixture of blood will check CBC. We'll proceed with computed tomography scan abdomen and pelvis considering patient is still reporting moderate abdominal pain. Recommend general surgical consult. Patient is scheduled to follow up at [facility]. We'll continue to follow. Assessment and plan a care discussed with Dr. Willams
[2018-07-29] MEDS: IOPAMIDOL-300 CONTRAST 30 ML VIAL (ORAL USE) PO PRN ×2 (12:34→14:12)
[2018-07-29 13:07] LABS: Anisocytosis Slight; HCT 34.7 % (39.0-53.0); Hypochromasia Moderate; MCH 27.4 pg (25.0-35.0); MCHC 31.8 g/dL (31.0-37.0); MCV 86.2 fL (80.0-100.0); Mean Platelet Volume 14.5; Platelet Count 130 k/uL (150-450); RBC 4.03 m/uL (4.30-5.90); RDW 18.1 % (11.5-15.5); WBC 12.6 k/uL (3.8-10.6)
[2018-07-29 13:08] LABS: Anisocytosis Slight; Basophils % (A) 0 %; Eosinophils # (A) 0.1 k/uL (0-0.7); Eosinophils % (A) 0 %; HCT 37.3 % (39.0-53.0); HGB 11.4 gm/dL (13.0-17.5); Hypochromasia Moderate; Lymphocytes # (A) 1.5 k/uL (1.0-4.8); Lymphocytes % (A) 10 %; MCH 26.2 pg (25.0-35.0); MCHC 30.6 g/dL (31.0-37.0); MCV 85.5 fL (80.0-100.0); Mean Platelet Volume 16.4; Monocytes # (A) 1.5 k/uL (0-1.0); Monocytes % (A) 10 %; Neutrophils # (A) 11.8 k/uL (1.3-7.7); Neutrophils % (A) 78 %; Platelet Count 118 k/uL (150-450); RBC 4.36 m/uL (4.30-5.90); RDW 18.1 % (11.5-15.5); WBC 15.2 k/uL (3.8-10.6)
[2018-07-29] MEDS: MAGNESIUM SULFATE-D5W PMX 1 GM in DEXTROSE/WATER 1 100ML.BAG IVPB SCH ×2 (13:24→15:13)
[2018-07-29 13:53] LABS: Large Platelets Present; Target Cells Present
[2018-07-29 13:54] LABS: RBC Fragments Present
[2018-07-29 13:56] LABS: Howell-Jolly Bodies Present
[2018-07-29] MEDS: SODIUM CHLORIDE 0.9% 1,000 ML IV SCH ×2 (15:11→23:55)
--- NOTE | 2018-07-29 15:41 | CT ---
"EXAMINATION TYPE: CT abdomen pelvis w con DATE OF EXAM: 07/29/2018 COMPARISON: 05/17/2018 HISTORY: Abdominal pain. Follow up from surgery and ostomy for fistula per patient. CT DLP: 868.8 mGycm Automated exposure control for dose reduction was used. TECHNIQUE: Helical acquisition of images was performed from the lung bases through the pelvis. CONTRAST: Performed with Oral Contrast and with IV Contrast, patient injected with 100 mL of Isovue M300. FINDINGS: LUNG BASES: There is a 1 cm left basilar pulmonary nodule with elongated swirling of the vasculature emanating from its medial aspect. This is also contiguous with the pleural surface likely representin g round atelectasis however no calcified pleural plaque is seen and therefore short-term follow-up is recommended. This is increased from the previously seen left basal atelectasis on 05/17/2018. Pulmona ry vasculature is engorged. 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 PANCREAS: There is new marked pancreatic ductal dilatation. SPLEEN: Absent ADRENALS: No significant abnormality is seen. KIDNEYS: Mild right-sided ureteral dilatation may relate to vesicoureteral reflux during no distinct hydronephrosis is seen. 1.1 cm hypoattenuated right renal lesion likely represents a cyst with pseudo enhancement. Slightly lobulated Contour the kidneys is stable. FREE AIR: No free air is visualized. ADENOPATHY: No greater than 1 cm short axis lymph node in the abdomen or pelvis. URINARY BLADDER: Unremarkable. OSSEOUS STRUCTURES: Mild multilevel degenerative changes of the spine. These are most severe at L4-L 5. BOWEL: There is a mass that appears to be intraluminal at the ampulla of Vater favored to be within the gastric antrum and extending into the duodenum given the appearance on coronal series 7 image 24. This measures 4.3 x 2.7 x 4.1 cm area there is also eccentric wall thickening of the descending duod enum and gastric antrum measuring up to 1.3 cm at the lateral aspect. Diverting ostomy from subtotal colectomy is seen in the right lower quadrant. Postsurgical change or subcutaneous emphysema is noted within the left ventral subcutaneous tissues. Surgical sutures are se en of the gastric body and multifocally within small bowel from prior resection. OTHER: There is similar appearing chronic superior mesenteric distal occlusion with extensive mesente wilton collateralization and aneurysmal dilatation similar in caliber to the prior exams with eccentric mural plaquing. This measures up to 2.9 cm. IMPRESSION: 1. 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 This is favored to be gastric and duodenal although pancreatic or per iampullary mass is also possible. Less likely this could relate to interval development of a hematoma . Endoscopy is recommended for further evaluation. 2. 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 3. Mild right-sided ureteral dilatation mainly on the basis of ureterovesicular reflux as there is no eagle hydronephrosis or obstructing calculus. 4. Left basilar pulmonary nodule may represent round atelectasis or less likely true pulmonary nodule or continued follow-up is recommended. A Yellow level critical message alert has been initiated for Angel Swanson MD via the [employer] [facility] 0 | Critical Results System on 07/29/2018 3:39 PM. This message alert has been sent to Angel Swanson MD via the preferences provided by the clinician for the receipt of Radiology Critical Findings. Mess age ID [id number]."
[2018-07-29] MEDS: diphenhydrAMINE 50 MG/ML 1 ML VIAL IVP PRN ×2 (15:59→22:30)
[2018-07-29 18:08] LABS: Glucose,Whole Blood 176 mg/dL (75-99)
[2018-07-29 18:31] LABS: Anisocytosis Slight; HCT 36.3 % (39.0-53.0); HGB 11.3 gm/dL (13.0-17.5); Hypochromasia Marked; MCH 27.2 pg (25.0-35.0); MCHC 31.1 g/dL (31.0-37.0); MCV 87.4 fL (80.0-100.0); Mean Platelet Volume 15.2; Platelet Count 117 k/uL (150-450); RBC 4.15 m/uL (4.30-5.90); RDW 17.9 % (11.5-15.5); WBC 10.5 k/uL (3.8-10.6)
[2018-07-29] MEDS ORDERED: [UNRECOGNIZED DRUG - REMARK] IV ONE ×7 (19:00)
[2018-07-29] MEDS: METHADONE 5 MG TAB PO SCH (20:36)
[2018-07-29] MEDS: traZODone HCL 100 MG TAB PO SCH (20:36)
[2018-07-29] MEDS: SERTRALINE 50 MG TAB PO SCH (20:37)
[2018-07-29] MEDS: clonazePAM 0.5 MG TAB PO SCH (20:37)
[2018-07-29 23:51] LABS: Glucose,Whole Blood 227 mg/dL (75-99)
[2018-07-30] MEDS: INSULIN ASPART (NovoLOG) 100 UNIT/ML VIAL SQ SCH ×4 (00:02→17:44)
[2018-07-30] MEDS ORDERED: [UNRECOGNIZED DRUG - OTHER] IV ONE (02:00)
[2018-07-30] MEDS ORDERED: SODIUM CHLORIDE IV ONE (02:00)
[2018-07-30] MEDS ORDERED: MAGNESIUM SULFATE IV ONE (02:00)
[2018-07-30] MEDS: HYDROmorphone 2 MG/ML 1 ML SYRINGE IVP PRN ×7 (02:35→20:40)
[2018-07-30] MEDS: diphenhydrAMINE 50 MG/ML 1 ML VIAL IVP PRN ×3 (05:39→17:47)
--- NOTE | 2018-07-30 05:41 | PN ---
PROGRESS NOTE DATE OF SERVICE: 07/29/2018 PRESENTING COMPLAINT: Abdominal pain. INTERVAL HISTORY: Patient has multiple medical problems, status post four-organ transplant, presented with acute pancreatitis. Abdominal pain is somewhat better, but the patient had a blood through his ostomy back. Mother is at the bedside. Does feel weak and tired. REVIEW OF SYSTEMS: Done for constitutional, cardiovascular, GI, pulmonary; relevant findings as above. CURRENT MEDICATIONS: Current medications include TPN lipids and other medications. PHYSICAL EXAMINATION: On examination, temperature 99.6, pulse 105, respiration 16, blood pressure 106/59, pulse ox 92% on room air. GENERAL APPEARANCE: Lying in bed, tired appearing. EYES: Pupil equal. Conjunctivae pale, NECK: JVD unable to assess. Mass not palpable. RESPIRATORY: Effort increased. LUNGS: Decreased breath sounds. CARDIOVASCULAR: First and second sounds normal. No edema. ABDOMEN: Tenderness present. No guarding, rigidity. Has an ileostomy bag with some red liquid stool. Also bag over the fistula site. PSYCH: AO x3. Mood and affect anxious. INVESTIGATIONS: White count 10.5, hemoglobin 11.3, platelets 117. 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 ASSESSMENT: 1. Acute gastrointestinal bleed, not severe, cause unclear. 2. Acute severe recurrent pancreatitis with clinical and biochemical improvement, though patient is still having abdominal pain. 3. Chronic obstructive pulmonary disease in an ex-smoker. 4. Four-organ transplant in 2003 including small bowel, pancreas, duodenum, stomach, being followed at the [facility] and [facility]. 5. Multiple abdominal fistulas, drainage bag in place. 6. Gastroesophageal reflux disease. 7. Chronic gastroparesis. 8. Chronic mesenteric vein thrombosis. 9. Immunosuppressed stage. 10.Chronic kidney disease stage 3 from nephrosclerosis. 11.Ileostomy bag. PLAN: Initially talked to the patient and mother at length. The patient is ready for transfer as he knows nothing further can be done at this hospital. I then spoke to Dr. Willams at length from GI. He also has same opinion that patient will need further workup based on the clinical picture of his complicated care. I then spoke to [facility] to patient's transplant physician. At this point he suggested to hold off the Lovenox and keep the patient and see how the patient does in next 24 hours. Will DC the Lovenox. Follow CBC and keep a close eye. Overall prognosis remains guarded. About 45 minutes was spent today with over 25 to 30 minutes on discussion today. MMSILVIAL / IJN: [id number] /
[2018-07-30] MEDS: SODIUM CHLORIDE 0.9% 1,000 ML IV SCH ×2 (05:45→16:58)
[2018-07-30 06:02] LABS: Albumin 2.7 g/dL (3.5-5.0); Calcium 8.5 mg/dL (8.4-10.2); Magnesium 2.4 mg/dL (1.6-2.3); Potassium 4.2 mmol/L (3.5-5.1); Total Bilirubin 2.3 mg/dL (0.2-1.3); Total Protein 5.3 g/dL (6.3-8.2)
[2018-07-30 06:20] LABS: Glucose,Whole Blood 262 mg/dL (75-99)
[2018-07-30] MEDS: SERTRALINE 100 MG TAB PO SCH (08:00)
[2018-07-30] MEDS: QUEtiapine 25 MG TAB PO SCH (08:00)
[2018-07-30] MEDS: METHADONE 10 MG TAB PO SCH (08:00)
[2018-07-30] MEDS: GABAPENTIN 300 MG CAP PO SCH ×3 (08:00→20:39)
[2018-07-30] MEDS: PANTOPRAZOLE 40 MG TABLET PO SCH ×2 (08:00→16:57)
[2018-07-30] MEDS: FLECAINIDE 50 MG TAB PO SCH ×2 (08:00→20:40)
[2018-07-30] MEDS: HYDROCORTISONE 10 MG TAB PO SCH ×3 (08:00→20:40)
[2018-07-30] MEDS: SULFAMETHOX-TMP 800-160MG 1 EACH TAB PO SCH (08:00)
[2018-07-30] MEDS: TACROLIMUS 1 MG CAP PO SCH ×2 (08:01→21:16)
[2018-07-30 12:04] LABS: Glucose,Whole Blood 134 mg/dL (75-99)
--- NOTE | 2018-07-30 13:27 | P.PN ---
Subjective Progress Note Date: 07/30/18 Principal diagnosis: Pancreatitis Feels better today. Appears more jaundiced today. LFTs increased total bilirubin 2.3. AST 90. ALT 174. AP 534. Hemoglobin yesterday 11.3. Objective - Vital Signs Vital signs: Vital Signs Temp 97.8 F 07/30/18 12:41 Pulse 96 07/30/18 12:41 Resp 18 07/30/18 12:41 BP 107/68 07/30/18 12:41 Pulse Ox 94 L 07/30/18 12:41 Intake & Output 07/29/18 07/30/18 07/30/18 18:59 06:59 18:59 Intake Total 0 1500 Output Total 700 1300 900 Balance -700 200 -900 Intake: Intake, IV Titration 1300 Amount Sodium Chloride 0.9% 1, 1300 000 ml @ 100 mls/hr IV . Q10H GUY Rx#:[id number] Oral 0 200 Output: Gastric Drainage 100 Drainage 400 Left Upper Abdomen 400 Urine 800 700 Stool 700 200 Other: Voiding Method Toilet Toilet # Voids 1 - Exam General appearance: The patient is alert, oriented, in no acute distress. HET: Head is normocephalic and atraumatic. Pupils are equal and reactive. Oropharynx is clear without lesions. Neck: Supple without lymphadenopathy. Trachea midline. Heart: S1 S2. Regular rate and rhythm. Lungs: No crackles or wheezes are heard. Abdomen: Soft, moderate tenderness to the mid abdomen to ostomies right side with yellow stool midline ostomy with dark colored [employer] fluid no signif icant blood, nondistended with bowel sounds. No peritoneal signs. No palpable organomegaly or masses. Extremities: Normal skin color and turgor. No cyanosis, rash, ulceration, clubbing, or edema. Radial and pedal pulses are 2/4 bilaterally. Neurological: No focal deficits. Strength and sensation are grossly intact. - Labs CBC & Chem 7: 07/29/18 17:21 07/30/18 06:00 Labs: Abnormal Lab Results - Last 24 Hours (Table) 07/29/18 07/29/18 07/29/18 Range/Units 09:58 17:21 17:56 WBC 15.2 H (3.8-10.6) k/uL RBC 4.15 L (4.30-5.90) m/uL Hgb 11.4 L 11.3 L (13.0-17.5) gm/dL Hct 37.3 L 36.3 L (39.0-53.0) % MCHC 30.6 L (31.0-37.0) g/dL RDW 18.1 H 17.9 H (11.5-15.5) % Plt Count 118 L 117 L (150-450) k/uL Neutrophils # 11.8 H (1.3-7.7) k/uL Monocytes # 1.5 H (0-1.0) k/uL Sodium (137-145) mmol/L Carbon Dioxide (22-30) mmol/L BUN (9-20) mg/dL Glucose (74-99) mg/dL POC Glucose (mg/dL) 176 H (75-99) mg/dL Magnesium (1.6-2.3) mg/dL Total Bilirubin (0.2-1.3) mg/dL AST (17-59) U/L ALT (21-72) U/L Alkaline Phosphatase (38-126) U/L Total Protein (6.3-8.2) g/dL Albumin (3.5-5.0) g/dL 07/29/18 07/30/18 07/30/18 Range/Units 23:48 06:00 06:09 WBC (3.8-10.6) k/uL RBC (4.30-5.90) m/uL Hgb (13.0-17.5) gm/dL Hct (39.0-53.0) % MCHC (31.0-37.0) g/dL RDW (11.5-15.5) % Plt Count (150-450) k/uL Neutrophils # (1.3-7.7) k/uL Monocytes # (0-1.0) k/uL Sodium 136 L (137-145) mmol/L Carbon Dioxide 32 H (22-30) mmol/L BUN 40 H (9-20) mg/dL Glucose 235 H (74-99) mg/dL POC Glucose (mg/dL) 227 H 262 H (75-99) mg/dL Magnesium 2.4 H (1.6-2.3) mg/dL Total Bilirubin 2.3 H (0.2-1.3) mg/dL AST 98 H (17-59) U/L ALT 174 H (21-72) U/L Alkaline Phosphatase 534 H (38-126) U/L Total Protein 5.3 L (6.3-8.2) g/dL Albumin 2.7 L (3.5-5.0) g/dL 07/30/18 Range/Units 11:53 WBC (3.8-10.6) k/uL RBC (4.30-5.90) m/uL Hgb (13.0-17.5) gm/dL Hct (39.0-53.0) % MCHC (31.0-37.0) g/dL RDW (11.5-15.5) % Plt Count (150-450) k/uL Neutrophils # (1.3-7.7) k/uL Monocytes # (0-1.0) k/uL Sodium (137-145) mmol/L Carbon Dioxide (22-30) mmol/L BUN (9-20) mg/dL Glucose (74-99) mg/dL POC Glucose (mg/dL) 134 H (75-99) mg/dL Magnesium (1.6-2.3) mg/dL Total Bilirubin (0.2-1.3) mg/dL AST (17-59) U/L ALT (21-72) U/L Alkaline Phosphatase (38-126) U/L Total Protein (6.3-8.2) g/dL Albumin (3.5-5.0) g/dL Microbiology - Last 24 Hours (Table) 07/24/18 07:45 Blood Culture - Final Blood No Growth after 144 hours - Imaging and Cardiology CT scan - abdomen: report reviewed (Dr. Willams) Assessment and Plan (1) Pancreatitis of transplanted pancreas Narrative/Plan: Acute recurrent pancreatitis of unknown etiology in a patient with a consultative surgical history including multiorgan visceral transplant. CT abd omen and pelvis reported new marked intrahepatic extra hepatic pancreatic ductal dilatation secondary to an obstructing mass at the ampulla levator this is here to be gastric and duodenal although pancreatic or periampullary mass also possible. Less likely hematoma. Current Visit: Yes Status: Acute Code(s): T86.898 - OTHER COMPLICATIONS OF OTHER TRANSPLANTED TISSUE; K85.90 - ACUTE PANCREATITIS WITHOUT NECROSIS OR IN FECTION, UNSP SNOMED Code(s): 87668086 (2) Elevated liver enzymes Current Visit: Yes Status: Acute Code(s): R74.8 - ABNORMAL LEVELS OF OTHER SERUM ENZYMES SNOMED Code(s): 857346496 Plan: 1. CT was discussed with patient by Dr. Willams. Dr. Swanson has spoken with [facility] Lovenox has been discontinued and he was advised to observe for now 24 hours. Continue to monitor CBC CMP on a daily basis. No plans for endoscopic intervention at this time. Recommend to transfer to [facility] and or available tertiary center secondary to his complicated surgical/transplant history. Assessment and plan of care discussed with Dr. Willams
[2018-07-30 17:52] LABS: Glucose,Whole Blood 214 mg/dL (75-99)
[2018-07-30] MEDS: FAT EMULSION 20% 250 ML IV SCH (18:55)
[2018-07-30] MEDS ORDERED: [UNRECOGNIZED DRUG - REMARK] IV ONE ×7 (19:00)
[2018-07-30] MEDS: traZODone HCL 100 MG TAB PO SCH (20:39)
[2018-07-30] MEDS: SERTRALINE 50 MG TAB PO SCH (20:39)
[2018-07-30] MEDS: METHADONE 5 MG TAB PO SCH (20:39)
[2018-07-30] MEDS: clonazePAM 0.5 MG TAB PO SCH (20:40)
[2018-07-31 00:11] LABS: Glucose,Whole Blood 338 mg/dL (75-99)
[2018-07-31 00:13] LABS: Glucose,Whole Blood 470 mg/dL (75-99)
[2018-07-31] MEDS: HYDROmorphone 2 MG/ML 1 ML SYRINGE IVP PRN ×8 (00:15→22:58)
[2018-07-31] MEDS: diphenhydrAMINE 50 MG/ML 1 ML VIAL IVP PRN ×4 (00:15→19:56)
[2018-07-31] MEDS: INSULIN ASPART (NovoLOG) 100 UNIT/ML VIAL SQ SCH ×5 (00:15→23:49)
[2018-07-31] MEDS ORDERED: SODIUM CHLORIDE IV ONE (02:00)
[2018-07-31] MEDS ORDERED: [UNRECOGNIZED DRUG - OTHER] IV ONE (02:00)
[2018-07-31] MEDS ORDERED: MAGNESIUM SULFATE IV ONE (02:00)
[2018-07-31] MEDS: SODIUM CHLORIDE 0.9% 1,000 ML IV SCH ×3 (02:09→23:49)
[2018-07-31 06:08] LABS: Glucose,Whole Blood 346 mg/dL (75-99)
--- NOTE | 2018-07-31 06:19 | PN ---
PROGRESS NOTE DATE OF SERVICE: 07/30/2018 PRESENTING COMPLAINT: Abdominal pain. INTERVAL HISTORY: Patient is status post four-organ transplant, presented with acute pancreatitis. Also had some bleeding through the fistula bag, not the ostomy bag. Feeling better today. Has been up in the hallway. There is still some dark output through the fistula bag. REVIEW OF SYSTEMS: Done for constitutional, cardiovascular, GI, pulmonary; relevant findings as above. Patient did tolerate some clear liquid diet. CURRENT MEDICATIONS: Current medications are reviewed. PHYSICAL EXAMINATION: On examination, temperature 97.8, pulse 96, respiration 18, blood pressure 107/68, pulse ox 94% on room air. GENERAL APPEARANCE: Lying in bed, appears better. EYES: Pupils equal. Conjunctivae pale. NECK: JVD not raised. Mass not palpable. RESPIRATORY: Effort increased. LUNGS: Decreased breath sounds. CARDIOVASCULAR: First and second sounds normal. Minimal edema. ABDOMEN: Less tenderness. No guarding or rigidity. Ileostomy bag is present and also the bag over the fistula has some dark liquid stool. PSYCH: AO x3. Mood and affect less anxious today. INVESTIGATIONS: Potassium 4.2, BUN 40, creatinine 1.19. AST 98, ALT 174. Albumin 2.7. ASSESSMENT: 1. Acute gastrointestinal bleed seems to be stabilizing cause unclear. 2. Acute severe recurrent pancreatitis with clinical and biochemical improvement. Abdominal pain is getting better. 3. Chronic obstructive pulmonary disease in an ex-smoker. 4. Four-organ transplant in 2002 including small bowel, pancreas, duodenum, stomach being followed at [facility] and [facility]. 5. Multiple abdominal fistulas, drainage bag in place. 6. Gastroesophageal reflux disease. 7. Chronic gastroparesis. 8. Chronic mesenteric vein thrombosis. 9. Immunosuppressed state. 10.Chronic kidney disease stage 3 from nephrosclerosis. 11.Ileostomy bag. PLAN: Lovenox was held yesterday. The patient has shown clinical improvement. Did talk with the patient and mother at length. I am hoping the patient can probably be discharged home in the next 24 to 48 hours. If deteriorate then patient will be transferred to [facility]. The patient has an appointment coming up next Saturday. If he does happen to go home in the next 2 or 3 days then patient should be able to keep up his appointment at [facility]. Repeat labs in the morning. MMODL / IJN: [id number] /
[2018-07-31] MEDS: METHADONE 10 MG TAB PO SCH (08:07)
[2018-07-31] MEDS: PANTOPRAZOLE 40 MG TABLET PO SCH ×2 (08:44→16:45)
[2018-07-31] MEDS: HYDROCORTISONE 10 MG TAB PO SCH ×3 (08:44→21:36)
[2018-07-31] MEDS: FLECAINIDE 50 MG TAB PO SCH ×2 (08:44→21:36)
[2018-07-31] MEDS: GABAPENTIN 300 MG CAP PO SCH ×3 (08:44→21:36)
[2018-07-31] MEDS: QUEtiapine 25 MG TAB PO SCH (08:45)
[2018-07-31] MEDS: SERTRALINE 100 MG TAB PO SCH (08:45)
[2018-07-31] MEDS: TACROLIMUS 1 MG CAP PO SCH ×2 (08:46→21:37)
[2018-07-31 10:54] LABS: Anisocytosis Slight; HCT 34.4 % (39.0-53.0); HGB 10.2 gm/dL (13.0-17.5); Hypochromasia Marked; MCH 26.7 pg (25.0-35.0); MCHC 29.5 g/dL (31.0-37.0); MCV 90.5 fL (80.0-100.0); Mean Platelet Volume 15.2; RDW 18.3 % (11.5-15.5); WBC 10.7 k/uL (3.8-10.6)
[2018-07-31 11:24] VITALS: BMI 25.4
--- NOTE | 2018-07-31 11:42 | P.PN ---
Subjective Progress Note Date: 07/31/18 Principal diagnosis: Pancreatitis Feels better today. Requesting diet advancement to soft diet. Afebrile. 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 White count 10.7. He will in 10.2. CMP pending. Objective - Vital Signs Vital signs: Vital Signs Temp 97.8 F 07/31/18 05:10 Pulse 69 07/31/18 10:13 Resp 20 07/31/18 10:13 BP 149/70 07/31/18 05:10 Pulse Ox 97 07/31/18 05:10 Intake & Output 07/30/18 07/31/18 07/31/18 18:59 06:59 18:59 Intake Total 870 200 Output Total 1775 1200 Balance -905 -1000 Weight 89.7 kg 89.7 kg Intake: Oral 870 200 Output: Urine 975 1200 Stool 800 Other: Voiding Method Urinal # Voids 1 - Exam General appearance: The patient is alert, oriented, in no acute distress. HET: Head is normocephalic and atraumatic. Pupils are equal and reactive. Oropharynx is clear without lesions. Neck: Supple without lymphadenopathy. Trachea midline. Heart: S1 S2. Regular rate and rhythm. Lungs: No crackles or wheezes are heard. Abdomen: Soft, moderate tenderness to the mid abdomen to ostomies right side with yellow stool midline ostomy with movie theater manager colored fluid no significant blood, nondistended with bowel sounds. No peritoneal signs. No palpable organomegaly or masses. Extremities: Normal skin color and turgor. No cyanosis, rash, ulceration, clubbing, or edema. Radial and pedal pulses are 2/4 bilaterally. Neurological: No focal deficits. Strength and sensation are grossly intact. - Labs CBC & Chem 7: 07/31/18 09:51 07/30/18 06:00 Labs: Abnormal Lab Results - Last 24 Hours (Table) 07/30/18 07/30/18 07/31/18 Range/Units 11:53 17:05 00:01 WBC (3.8-10.6) k/uL RBC (4.30-5.90) m/uL Hgb (13.0-17.5) gm/dL Hct (39.0-53.0) % MCHC (31.0-37.0) g/dL RDW (11.5-15.5) % POC Glucose (mg/dL) 134 H 214 H 470 H (75-99) mg/dL 07/31/18 07/31/18 07/31/18 Range/Units 00:08 05:55 09:51 WBC 10.7 H (3.8-10.6) k/uL RBC 3.80 L (4.30-5.90) m/uL Hgb 10.2 L (13.0-17.5) gm/dL Hct 34.4 L (39.0-53.0) % MCHC 29.5 L (31.0-37.0) g/dL RDW 18.3 H (11.5-15.5) % POC Glucose (mg/dL) 338 H 346 H (75-99) mg/dL Microbiology - Last 24 Hours (Table) 07/24/18 07:45 Blood Culture - Final Blood No Growth after 144 hours Assessment and Plan (1) Pancreatitis of transplanted pancreas Narrative/Plan: Acute recurrent pancreatitis of unknown etiology in a patient with a consultative surgical history including multiorgan visceral transplant. CT abdomen and pelvis reported new marked intrahepatic extra hepatic pancreatic ductal dilatation secondary to an obstructing mass at the ampulla levator this is here to be gastric and duodenal although pancreatic or periampullary mass also possible. Less likely hematoma. Current Visit: Yes Status: Acute Code(s): T86.898 - OTHER COMPLICATIONS OF OTHER TRANSPLANTED TISSUE; K85.90 - ACUTE PANCREATITIS WITHOUT NECROSIS OR INFECTION, UNSP SNOMED Code(s): 89232803 (2) Elevated liver enzymes Current Visit: Yes Status: Acute Code(s): R74.8 - ABNORMAL LEVELS OF OTHER SERUM ENZYMES SNOMED Code(s): 475508843 Plan: 1. Continue to monitor CBC CMP on a daily basis. Advance to soft diet. No plans for endoscopic intervention at this time. Recommend to transfer to [facility] and or available tertiary center secondary to his complicated surgical/transplant history if clinical condition worsens. Patient has a scheduled plan a [facility] September 06. Assessment and plan of care discussed with Dr. Willams
[2018-07-31 12:11] LABS: Glucose,Whole Blood 154 mg/dL (75-99)
[2018-07-31 12:19] LABS: Lymphocytes # (M) 0.75 k/uL (1.0-4.8); Monocytes # (M) 0.43 k/uL (0-1.0); Neutrophils # (M) 9.52 k/uL (1.3-7.7); Neutrophils % (M) 89 %; Nucleated Red Blood Cells 0 /100 WBC (0-0); Poikilocytosis (M) Present; Target Cells Present; Total Cells Counted 100
[2018-07-31 12:20] LABS: Howell-Jolly Bodies Present
[2018-07-31 12:22] LABS: Platelet Count 106 k/uL (150-450)
[2018-07-31 13:38] LABS: ALT 141 U/L (21-72); AST 41 U/L (17-59); Albumin 2.9 g/dL (3.5-5.0); Alkaline Phosphatase 441 U/L (38-126); Anion Gap 4 mmol/L; Blood Urea Nitrogen 43 mg/dL (9-20); Carbon Dioxide 30 mmol/L (22-30); Chloride 106 mmol/L (98-107); Glucose 131 mg/dL (74-99); Phosphorus 3.8 mg/dL (2.5-4.5); Potassium 4.7 mmol/L (3.5-5.1); Sodium 140 mmol/L (137-145); Total Protein 5.6 g/dL (6.3-8.2)
[2018-07-31 17:17] LABS: Glucose,Whole Blood 160 mg/dL (75-99)
[2018-07-31] MEDS ORDERED: [UNRECOGNIZED DRUG - REMARK] IV ONE ×7 (19:00)
[2018-07-31] MEDS: traZODone HCL 100 MG TAB PO SCH (21:36)
[2018-07-31] MEDS: SERTRALINE 50 MG TAB PO SCH (21:37)
[2018-07-31] MEDS: METHADONE 5 MG TAB PO SCH (21:37)
[2018-07-31] MEDS: clonazePAM 0.5 MG TAB PO SCH (21:41)
--- NOTE | 2018-07-31 23:04 | PN ---
PROGRESS NOTE DATE OF SERVICE: July 31, 2018. PRESENTING COMPLAINT: Abdominal pain. INTERVAL HISTORY: The patient with a 4 organ transplant, presented with acute pancreatitis which settled down and developed a leak to the fistula bag. Continues to feel better. Has been up in the hallway. Did tolerate a liquid diet. Overall feeling better. Mother at the bedside. REVIEW OF SYSTEMS: Done for costal cardiovascular, GI, pulmonary and relevant findings as above. CURRENT MEDICATIONS: Reviewed. PHYSICAL EXAMINATION: VITAL SIGNS: Temperature 98, pulse 87, respiratory rate 18, blood pressure 98/56. Pulse ox 95% on room air. GENERAL APPEARANCE: Lying in bed, awake. EYES: Pupil equal. Conjunctivae pale. NECK: JVD not raised. Mass not palpable. RESPIRATORY: Effort increased. LUNGS: Decreased breath sounds. CARDIOVASCULAR: 1st and 2nd sounds normal. Minimal edema. ABDOMEN: Mild tenderness soft. No guarding or rigidity. Ileostomy bag is present and liquid stool in the fistula bag. PSYCH: AO x3. Mood and affect normal. INVESTIGATIONS: White count 10.7, hemoglobin 10.2, platelets 106, potassium 4.7 BUN 43, creatinine 1.01. Accu-Cheks are noted. ASSESSMENT: 1. Acute gastrointestinal bleed from the fistula bag seems to have stabilized. 2. Acute severe recurrent pancreatitis with clinical and biochemical improvement. Abdominal pain much improved. 3. Chronic obstructive pulmonary disease in an ex-smoker. 4. Four organ transplant 2003 including small bowel, pancreas, duodenum, stomach being followed at [facility] in [facility]. 5. Multiple abdominal fistulas draining bag in place. 6. Gastroesophageal reflux disease. 7. Chronic gastroparesis. 8. Chronic mesenteric vein thrombosis. 9. Immunosuppressed state. 10.Chronic kidney disease stage 3 from nephrosclerosis. 11.Ileostomy bag. PLAN: Care was discussed with the patient and mother. Looking at patient probably going home tomorrow if everything remains stable. Also spoke to the coordinator from [facility] and given an update. If patient remains stable, patient can go home and then he can follow up on Saturday. If anything is to change in the meantime or he still needs to proceed to the [facility]. This also discussed with Fannie from the GI time. Total time spent today was about 45 minutes with over 30 minutes of discussion. MMODL / IJN: [id number] /
[2018-07-31 23:45] LABS: Glucose,Whole Blood 234 mg/dL (75-99)
[2018-08-01] MEDS ORDERED: SODIUM CHLORIDE IV ONE (02:00)
[2018-08-01] MEDS ORDERED: MAGNESIUM SULFATE IV ONE (02:00)
[2018-08-01] MEDS ORDERED: [UNRECOGNIZED DRUG - OTHER] IV ONE (02:00)
[2018-08-01] MEDS: diphenhydrAMINE 50 MG/ML 1 ML VIAL IVP PRN ×3 (02:09→14:25)
[2018-08-01] MEDS: HYDROmorphone 2 MG/ML 1 ML SYRINGE IVP PRN ×5 (02:09→14:21)
[2018-08-01] MEDS: INSULIN ASPART (NovoLOG) 100 UNIT/ML VIAL SQ SCH ×2 (05:58→13:38)
[2018-08-01 06:03] LABS: Glucose,Whole Blood 235 mg/dL (75-99)
[2018-08-01] MEDS: SODIUM CHLORIDE 0.9% 1,000 ML IV SCH (07:24)
[2018-08-01] MEDS: METHADONE 10 MG TAB PO SCH (07:26)
[2018-08-01] MEDS: FLECAINIDE 50 MG TAB PO SCH (07:26)
[2018-08-01] MEDS: TACROLIMUS 1 MG CAP PO SCH (07:26)
[2018-08-01] MEDS: SERTRALINE 100 MG TAB PO SCH (07:27)
[2018-08-01] MEDS: HYDROCORTISONE 10 MG TAB PO SCH (07:27)
[2018-08-01] MEDS: PANTOPRAZOLE 40 MG TABLET PO SCH (07:27)
[2018-08-01] MEDS: QUEtiapine 25 MG TAB PO SCH (07:27)
[2018-08-01] MEDS: GABAPENTIN 300 MG CAP PO SCH (07:27)
[2018-08-01] MEDS: SULFAMETHOX-TMP 800-160MG 1 EACH TAB PO SCH (08:17)
--- NOTE | 2018-08-01 09:35 | P.PN ---
Subjective Progress Note Date: 08/01/18 Principal diagnosis: Pancreatitis Feels well. LFTs improving bilirubin normalized. Tolerating diet. Afebrile. Minimal abdominal discomfort. Objective - Vital Signs Vital signs: Vital Signs Temp 98.8 F 08/01/18 05:00 Pulse 91 08/01/18 05:00 Resp 18 08/01/18 05:00 BP 137/72 08/01/18 05:00 Pulse Ox 95 08/01/18 05:00 Intake & Output 07/31/18 08/01/18 08/01/18 18:59 06:59 18:59 Output Total 150 750 900 Balance -150 -750 -900 Weight 89.7 kg Output: Urine 350 600 Stool 150 400 300 Other: Voiding Method Urinal Urinal # Voids 1 # Bowel Movements 1 - Exam General appearance: The patient is alert, oriented, in no acute distress. HET: Head is normocephalic and atraumatic. Pupils are equal and reactive. Oropharynx is clear without lesions. Neck: Supple without lymphadenopathy. Trachea midline. Heart: S1 S2. Regular rate and rhythm. Lungs: No crackles or wheezes are heard. Abdomen: Soft, moderate tenderness to the mid abdomen to ostomies right side with yellow stool midline ostomy with brown colored fluid no blood , nondistended with bowel sounds. No peritoneal signs. No palpable organomegaly or masses. Extremities: Normal skin color and turgor. No cyanosis, rash, ulceration, cl ubbing, or edema. Radial and pedal pulses are 2/4 bilaterally. Neurological: No focal deficits. Strength and sensation are grossly intact. - Labs CBC & Chem 7: 07/31/18 09:51 07/31/18 09:51 Labs: Abnormal Lab Results - Last 24 Hours (Table) 07/31/18 07/31/18 07/31/18 Range/Units 09:51 09:51 11:47 WBC 10.7 H (3.8-10.6) k/uL RBC 3.80 L (4.30-5.90) m/uL Hgb 10.2 L (13.0-17.5) gm/dL Hct 34.4 L (39.0-53.0) % MCHC 29.5 L (31.0-37.0) g/dL RDW 18.3 H (11.5-15.5) % Plt Count 106 L (150-450) k/uL Neutrophils # (Manual) 9.52 H (1.3-7.7) k/uL Lymphocytes # (Manual) 0.75 L (1.0-4.8) k/uL BUN 43 H (9-20) mg/dL Glucose 131 H (74-99) mg/dL POC Glucose (mg/dL) 154 H (75-99) mg/dL ALT 141 H (21-72) U/L Alkaline Phosphatase 441 H (38-126) U/L Total Protein 5.6 L (6.3-8.2) g/dL Albumin 2.9 L (3.5-5.0) g/dL 07/31/18 07/31/18 08/01/18 Range/Units 17:06 23:44 05:54 WBC (3.8-10.6) k/uL RBC (4.30-5.90) m/uL Hgb (13.0-17.5) gm/dL Hct (39.0-53.0) % MCHC (31.0-37.0) g/dL RDW (11.5-15.5) % Plt Count (150-450) k/uL Neutrophils # (Manual) (1.3-7.7) k/uL Lymphocytes # (Manual) (1.0-4.8) k/uL BUN (9-20) mg/dL Glucose (74-99) mg/dL POC Glucose (mg/dL) 160 H 234 H 235 H (75-99) mg/dL ALT (21-72) U/L Alkaline Phosphatase (38-126) U/L Total Protein (6.3-8.2) g/dL Albumin (3.5-5.0) g/dL Assessment and Plan (1) Pancreatitis of transplanted pancreas Narrative/Plan: Acute recurrent pancreatitis of unknown etiology in a patient with a consultative surgical history including multiorgan visceral transplant. CT abdomen and pelvis reported new marked intrahepatic extra hepatic pancreatic ductal dilatation secondary to an obstructing mass at the ampulla levator this is here to be gastric and duodenal although pancreatic or periampullary mass also possible. Less likely hematoma. Current Visit: Yes Status: Acute Code(s): T86.898 - OTHER COMPLICATIONS OF OTHER TRANSPLANTED TISSUE; K85.90 - ACUTE PANCREATITIS WITHOUT NECROSIS OR INFECTION, UNSP SNOMED Code(s): 26454095 (2) Elevated liver enzymes Current Visit: Yes Status: Acute Code(s): R74.8 - ABNORMAL LEVELS OF OTHER SERUM ENZYMES SNOMED Code(s): 345138781 Plan: 1. Agreeable for discharge. Follow-up with [facility] next week. Assessment and plan of care discussed with Dr. Willams
[2018-08-01 10:14] LABS: ALT 111 U/L (21-72); AST 32 U/L (17-59); Albumin 2.9 g/dL (3.5-5.0); Alkaline Phosphatase 387 U/L (38-126); Anion Gap 4 mmol/L; Blood Urea Nitrogen 33 mg/dL (9-20); Calcium 8.7 mg/dL (8.4-10.2); Carbon Dioxide 33 mmol/L (22-30); Chloride 104 mmol/L (98-107); Glucose 134 mg/dL (74-99); Magnesium 1.6 mg/dL (1.6-2.3); Phosphorus 2.9 mg/dL (2.5-4.5); Potassium 4.4 mmol/L (3.5-5.1); Sodium 141 mmol/L (137-145); Total Bilirubin 0.8 mg/dL (0.2-1.3); Total Protein 5.6 g/dL (6.3-8.2)
[2018-08-01 10:16] LABS: Anisocytosis Slight; Basophils % (A) 0 %; Eosinophils # (A) 0.1 k/uL (0-0.7); Eosinophils % (A) 1 %; HCT 33.5 % (39.0-53.0); Hypochromasia Marked; Lymphocytes # (A) 1.7 k/uL (1.0-4.8); Lymphocytes % (A) 16 %; MCH 26.8 pg (25.0-35.0); MCHC 29.8 g/dL (31.0-37.0); MCV 89.9 fL (80.0-100.0); Mean Platelet Volume 16.9; Monocytes # (A) 1.1 k/uL (0-1.0); Monocytes % (A) 11 %; Neutrophils # (A) 7.4 k/uL (1.3-7.7); Neutrophils % (A) 70 %; RBC 3.73 m/uL (4.30-5.90); RDW 18.2 % (11.5-15.5); WBC 10.5 k/uL (3.8-10.6)
[2018-08-01] MEDS: MAGNESIUM SULFATE-D5W PMX 1 GM in DEXTROSE/WATER 1 100ML.BAG IVPB SCH ×2 (11:10→12:23)
[2018-08-01 11:18] LABS: Glucose,Whole Blood 176 mg/dL (75-99)
[2018-08-01 11:54] LABS: Large Platelets Present
[2018-08-01 11:55] LABS: Crenated RBC Present; Ovalocytes Present; Platelet Count 114 k/uL (150-450); RBC Fragments Present; Target Cells Present
[2018-08-01 12:57] VITALS: BP 118/71; PULSE 71; RESP 20; TEMP 97.8
[2018-08-01] MEDS ORDERED: [UNRECOGNIZED DRUG - REMARK] IV ONE ×7 (19:00)
[2018-08-02] MEDS ORDERED: SODIUM CHLORIDE IV ONE (02:00)
[2018-08-02] MEDS ORDERED: [UNRECOGNIZED DRUG - OTHER] IV ONE (02:00)
[2018-08-02] MEDS ORDERED: MAGNESIUM SULFATE IV ONE (02:00)
--- NOTE | 2018-08-03 17:22 | DS ---
DISCHARGE SUMMARY DATE OF ADMISSION: 07/24/2018 DATE OF DISCHARGE: 08/01/2018 FINAL DIAGNOSES: 1. Acute severe recurrent pancreatitis with both clinical and biochemical improvement. 2. Acute gastrointestinal bleed, exact site unknown with bloody dark stools out of the fistula bag, resolved. 3. Chronic obstructive pulmonary disease in an ex-smoker. 4. Four organ transplant in 2002 including small bowel, pancreas, duodenum, stomach being followed at [facility] and [facility]. 5. Multiple abdominal fistulas with [address] 6. Gastroesophageal reflux disease. 7. Chronic gastroparesis. 8. Chronic mesenteric vein thrombosis. 9. Immunosuppressed state. 10.Chronic kidney disease stage 3 from nephrosclerosis. 11.Ileostomy bag. HOSPITAL COURSE: This patient with multiorgan transplant yet again presented with acute pancreatitis. The patient's pain did improve. Patient also was putting out blood from his fistula bag. Did talk to the transplant team at [facility]. They suggested to hold off the Lovenox which was done and patient was having brown stool out of the fistula bag before discharge. The patient is to remain n.p.o. The patient was restarted back on Lovenox upon discharge, was told to watch for more drainage. Patient was told to follow up with the transplant team on Saturday and this was conveyed to them via phone. Patient does get his TPN lipids feeding. Discussion and discharge planning more than 35 minutes. PHYSICAL EXAMINATION: Temperature 97.8, pulse 71, respiratory rate 20, blood pressure 118/71, pulse ox 95% on room air. ABDOMEN: Soft. Mild tenderness. No guarding or rigidity. Brown stool in the fistula bag. INVESTIGATIONS: White count 10.5, hemoglobin 10.0. Potassium 4.4. BUN 33, creatinine 0.79. DISCHARGE MEDICATIONS: 1. Ferrous sulfate 325 mg p.o. b.i.d. 2. Zoloft 100 mg p.o. daily. 3. ProAir HFA 2 puffs q.6 p.r.n. 4. Trazodone 200 mg q.h.s. 5. Carafate 1 g p.o. b.i.d. 6. Symbicort 160/4.5, 2 puffs b.i.d. 7. Methadone 10 mg p.o. daily. 8. Seroquel 25 mg p.o. daily. 9. Flecainide 150 mg q.12. 10.Cortef 30 mg p.o. t.i.d. 11.Klonopin 0.25 mg p.o. q.h.s. 12.Madison 10 1 tablet p.o. t.i.d. p.r.n. 13.Tums 500 mg p.o. q.i.d. 14.Vitamin D3 5000 units p.o. Saturday, Saturday and Saturday. 15.Atrovent HFA 2 puffs b.i.d. p.r.n. 16.Methadone 5 mg p.o. at bedtime. 17.Protonix 40 mg p.o. b.i.d. 18.Zoloft 50 mg at bedtime. 19.Neurontin 600 mg t.i.d. 20.TPN. 21.Lovenox 100 mg subcu b.i.d. 22.Prograf 4 mg in the morning, 3 mg at evening. FOLLOWUP: Follow up with Dr. Tevin Zhao in [facility] on 08/07/2018. Patient to follow up with transplant team appointment upcoming Saturday. [facility] to continue. CBC and BMP in 3 days. Diet: Patient is to remain n.p.o. Copy to Dr. Tevin Zhao [facility]. MMODL / IJN: [id number] /
== END 2018-08-01 15:09 | disposition home health service (06) | DRG 438 ==
LOC: EC 07:08 → 4MS4W 09:14
PROVIDERS: ADMIT Hospitalist; ATTEND Hospitalist
PROC: 3E0436Z Introduction of Nutritional Substance into Central Vein, Percutaneous Approach (ICD-10-PCS; principal; 2018-07-24)
DX: T86.898 Other complications of other transplanted tissue (principal); K85.90 Acute pancreatitis without necrosis or infection, unspecified; I81 Portal vein thrombosis; Z94.82 Intestine transplant status; K92.2 Gastrointestinal hemorrhage, unspecified; E27.40 Unspecified adrenocortical insufficiency; K86.1 Other chronic pancreatitis; Z94.83 Pancreas transplant status; Z94.89 Other transplanted organ and tissue status; I48.0 Paroxysmal atrial fibrillation; K31.84 Gastroparesis; N18.3 Chronic kidney disease, stage 3 (moderate); E86.0 Dehydration; K86.81 Exocrine pancreatic insufficiency; I12.9 Hypertensive chronic kidney disease with stage 1 through stage 4 chronic kidney disease, or unspecified chronic kidney disease; J44.9 Chronic obstructive pulmonary disease, unspecified; G47.33 Obstructive sleep apnea (adult) (pediatric); D64.9 Anemia, unspecified; F32.9 Major depressive disorder, single episode, unspecified; F41.9 Anxiety disorder, unspecified; G89.29 Other chronic pain; M54.9 Dorsalgia, unspecified; K21.9 Gastro-esophageal reflux disease without esophagitis; K52.9 Noninfective gastroenteritis and colitis, unspecified; Z93.2 Ileostomy status; Z86.718 Personal history of other venous thrombosis and embolism; Z99.89 Dependence on other enabling machines and devices; Z90.81 Acquired absence of spleen; Z86.14 Personal history of Methicillin resistant Staphylococcus aureus infection; Z86.19 Personal history of other infectious and parasitic diseases; Z90.49 Acquired absence of other specified parts of digestive tract; Z87.891 Personal history of nicotine dependence; Z79.51 Long term (current) use of inhaled steroids; Z79.01 Long term (current) use of anticoagulants; Z79.899 Other long term (current) drug therapy; Z87.01 Personal history of pneumonia (recurrent); Z88.5 Allergy status to narcotic agent; Z88.8 Allergy status to other drugs, medicaments and biological substances; Y83.0 Surgical operation with transplant of whole organ as the cause of abnormal reaction of the patient, or of later complication, without mention of misadventure at the time of the procedure
CPT/HCPCS: 36415; 74177; 80048; 80053; 82150; 82272; 82330; 83605; 83690; 83735; 84100; 84478; 84484; 85025; 85027; 85610; 85730; 86850; 86900; 86901; 87040; 96374; 96375; 96376; 99285

== ENCOUNTER 2018-11-11 05:07 | Inpatient (IN) | payer MEDICARE, BC ==
[2018-11-11] MEDS ORDERED: SODIUM CHLORIDE 0.9% 2,000 ML IV STA (05:32)
[2018-11-11] MEDS ORDERED: HYDROmorphone 1 MG/ML 1 ML SYRINGE IVP STA ×3 (05:54→07:18)
--- NOTE | 2018-11-11 05:54 | ED ---
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 Patient recently spent 90 days at the [facility], he is currently home and managing his symptoms with a plan to return to the [facility] for removal of a majority of his bowel due to the multiple abdominal wall fistulas. Patient reports that overnight he developed severe epigastric abdominal pain consistent with previous episodes of pancreatitis. Pain is in the epigastrium, stabbing, severe associated with nausea but no vomiting. - Related Data Home Medications Medication Instructions Recorded Confirmed Ferrous Gluconate 325 mg PO BID 09/02/13 11/11/18 Sertraline [Zoloft] 150 mg PO DAILY 09/02/13 11/11/18 Albuterol Sulfate [Proair Hfa] 2 puff INHALATION RT-Q6H PRN 12/19/16 11/11/18 traZODone HCL 100 mg PO HS 12/19/16 11/11/18 Budesonide/Formoterol Fumarate 2 puff INHALATION RT-BID 05/17/17 11/11/18 [Symbicort 160-4.5 Mcg Inhaler] Methadone [Dolophine] 10 mg PO QAM 05/17/17 11/11/18 clonazePAM [Klonopin ODT Wafer] 0.25 mg PO HS 12/12/17 11/11/18 HYDROcodone/APAP 10-325MG [[place] 1 tab PO Q4H PRN 01/10/18 11/11/18 10-325] Methadone [Dolophine] 5 mg PO HS 01/22/18 11/11/18 Gabapentin 1,200 mg PO TID 06/18/18 11/11/18 Tacrolimus [Prograf] 2 mg PO BID 07/18/18 11/11/18 Baclofen 5mg/Ml Liquid 10 mg PO TID 11/11/18 11/11/18 Ergocalciferol [Vitamin D2] 50,000 unit PO MOWEFR 11/11/18 11/11/18 Hydrocortisone Sodium Succ 0.4 ml IV Q8H 11/11/18 11/11/18 Metoprolol Tartrate [Lopressor] 12.5 mg PO BID 11/11/18 11/11/18 Nystatin 100,000 Unit/ml Susp 500,000 unit PO QID 11/11/18 11/11/18 [Mycostatin Oral Susp] QUEtiapine [SEROquel] 50 mg PO HS 11/11/18 11/11/18 Sulfamethox-Tmp 800-160Mg [Bactrim 0.5 tab PO MOWEFR 11/11/18 11/11/18 DS 800-160 mg] Allergies Allergy/AdvReac Type Severity Reaction Status Date / Time aspirin Allergy GI Verified 11/11/18 07:52 BLEEDING , ABDOMINAL PAIN heparin AdvReac abdominal Verified 11/11/18 07:52 pain , GI bleeding ketorolac tromethamine AdvReac migraines Verified 11/11/18 07:52 [From Toradol] morphine AdvReac Itching Verified 11/11/18 07:52 Review of Systems ROS Statement: Those systems with pertinent positive or pertinent negative responses have been documented in the HPI. ROS Other: All systems not noted in ROS Statement are negative. 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 and the patient ultimately had multi-organ transplantation including the stomach, small bowel, duodenum and pancreas 2002, post operative complications including 2 d ehisciences and developed fistula twice-has ileostomy and an abdominal wound drainage bag, recurrent pancreatitis, history of adrenal insufficiency maintained on Cortef, immunosuppressed, chronic mesenteric vein thrombosis, 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 blood clot in aortic graft History of Any Multi-Drug Resistant Organisms: C-DIFF, ESBL, MRSA Date of last positivie culture/infection: MRSA sputum 05/29/17 MDRO Source:: C-diff stool 05/11/18 colonized Past Surgical History: Bowel Resection, Cholecystectomy Additional Past Surgical History / Comment(s): Multivisceral organ transplant including bowel, doudenum,pancreas, and stomach at [facility]- follows thru [facility],spleen removed, left knee arthrotomy, EGD, colonoscopy, ERCP with insertion of a pancreatic duct stent- since removed . ileostomy in october 2017, dehised x 2, repair of fistula, second fistula appeared may 01, 2018, pt currently has ostomy bag in which fistula drained into, colonized c-diff, MRSA in sputum a year ago, as infant valve surgery, varghese catheter. fistulas returned after attempted repair. Past Anesthesia/Blood Transfusion Reactions: No Reported Reaction Additional Past Anesthesia/Blood Transfusion Reaction / Comment(s): STATES R/T TO MULTIPLE SX HE REQUIRES A LOT OF MEDICATION for anesthesia. He has had multiple blood transfusions without reaction. Past Psychological History: Anxiety, Depression Smoking Status: Former smoker Past Alcohol Use History: None Reported Past Drug Use History: None Reported - Past Family History Mother History Unknown: Yes Additional Family Medical History / Comment(s): pt is adopted, does not know any hx Father History Unknown: Yes Additional Family Medical History / Comment(s): Pt is adopted and knows no history. General Exam - General Exam Comments Initial Comments: Physical Exam GENERAL: Chronically ill-appearing, pale HENT: Normocephalic, Atraumatic. EYES: PERRL, EOMI PULMONARY: Unlabored respirations. No audible rales rhonchi or wheezing was noted. CARDIOVASCULAR: There is a regular rate and rhythm without any murmurs gallops or rubs. ABDOMEN: Multiple surgical incisions on the abdomen Multiple draining fistulas, there is a very large fistula bag draining fecal material and succus Also noted draining from the previous PEG tube site SKIN: Abdominal wall fistulas as noted : Deferred NEUROLOGIC: Patient is alert and oriented x3. Moving all extremities spontaneously MUSCULOSKELETAL: Normal extremities with adequate strength and full range of motion. No lower extremity swelling or edema. No calf tenderness. PSYCHIATRIC: Appropriate situational depression Limitations: no limitations Course Vital Signs 11/11/18 11/11/18 11/11/18 05:17 06:15 08:06 Temperature 98.1 F Pulse Rate 108 H 105 H 103 H Pulse Rate [ Pulse Oximetery ] Respiratory 16 20 17 Rate Blood Pressure 114/77 111/70 115/66 Blood Pressure [Right Arm] O2 Sat by Pulse 98 96 94 L Oximetry 11/11/18 11/11/18 13:48 15:11 Temperature 97.7 F Pulse Rate Pulse Rate [ 73 Pulse Oximetery ] Respiratory 16 16 Rate Blood Pressure Blood Pressure 121/73 [Right Arm] O2 Sat by Pulse 98 Oximetry Medical Decision Making - Medical Decision Making The patient was seen and evaluated, history is obtained from the patient, I'm very familiar with this patient's course as I seen him multiple times in the emergency department Labs were ordered and is very high tolerance for narcotics as he has been on chronic narcotics in the past, 1 mg IV Dilaudid was ordered as well as IV fluids Labs resulted with elevated lipase level consistent with acute on chronic pancreatitis Patient care was discussed with admitting physician who requested a computed tomography scan of the abdomen be obtained prior to admission due to the fact that if the patient does have a surgical abdomen he will need to be transferred to the [facility]. Computed tomography scan was obtained with multiple significant abnormalities none are acute he does not have an acute surgical abdomen. Patient care was then discussed again with the admitting physician who accepts admission for acute on chronic pancreatitis. - Lab Data Result diagrams: 11/11/18 06:13 11/11/18 06:13 Lab Results 11/11/18 11/11/18 11/11/18 Range/Units 06:13 06:13 06:13 WBC 12.5 H (3.8-10.6) k/uL RBC 3.71 L (4.30-5.90) m/uL Hgb 9.7 L (13.0-17.5) gm/dL Hct 31.0 L (39.0-53.0) % MCV 83.7 (80.0-100.0) fL MCH 26.1 (25.0-35.0) pg MCHC 31.1 (31.0-37.0) g/dL RDW 19.7 H (11.5-15.5) % Plt Count 238 (150-450) k/uL Neutrophils % 81 % Lymphocytes % 9 % Monocytes % 7 % Eosinophils % 0 % Basophils % 0 % Neutrophils # 10.2 H (1.3-7.7) k/uL Lymphocytes # 1.2 (1.0-4.8) k/uL Monocytes # 0.9 (0-1.0) k/uL Eosinophils # 0.1 (0-0.7) k/uL Basophils # 0.0 (0-0.2) k/uL Hypochromasia Moderate Poikilocytosis Moderate Anisocytosis Slight Microcytosis Slight Sodium 139 (137-145) mmol/L Potassium 4.2 (3.5-5.1) mmol/L Chloride 110 H (98-107) mmol/L Carbon Dioxide 19 L (22-30) mmol/L Anion Gap 10 mmol/L BUN 60 H (9-20) mg/dL Creatinine 0.88 (0.66-1.25) mg/dL Est GFR (CKD-EPI)AfAm >90 (>60 ml/min/1.73 sqM) Est GFR (CKD-EPI)NonAf >90 (>60 ml/min/1.73 sqM) Glucose 81 (74-99) mg/dL Plasma Lactic Acid Barrie 0.8 (0.7-2.0) mmol/L Calcium 8.9 (8.4-10.2) mg/dL Total Bilirubin 0.5 (0.2-1.3) mg/dL AST 34 (17-59) U/L ALT 38 (21-72) U/L Alkaline Phosphatase 254 H (38-126) U/L Total Protein 5.6 L (6.3-8.2) g/dL Albumin 2.7 L (3.5-5.0) g/dL Lipase 2014 H (23-300) U/L Urine Color Urine Appearance (Clear) Urine pH (5.0-8.0) Ur Specific Bent (1.001-1.035) Urine Protein (Negative) Urine Glucose (UA) (Negative) Urine Ketones (Negative) Urine Blood (Negative) Urine Nitrite (Negative) Urine Bilirubin (Negative) Urine Urobilinogen (<2.0) mg/dL Ur Leukocyte Esterase (Negative) Urine RBC (0-5) /hpf Urine WBC (0-5) /hpf Urine WBC Clumps (None) /hpf Urine Bacteria (None) /hpf 11/11/18 Range/Units 06:13 WBC (3.8-10.6) k/uL RBC (4.30-5.90) m/uL Hgb (13.0-17.5) gm/dL Hct (39.0-53.0) % MCV (80.0-100.0) fL MCH (25.0-35.0) pg MCHC (31.0-37.0) g/dL RDW (11.5-15.5) % Plt Count (150-450) k/uL Neutrophils % % Lymphocytes % % Monocytes % % Eosinophils % % Basophils % % Neutrophils # (1.3-7.7) k/uL Lymphocytes # (1.0-4.8) k/uL Monocytes # (0-1.0) k/uL Eosinophils # (0-0.7) k/uL Basophils # (0-0.2) k/uL Hypochromasia Poikilocytosis Anisocytosis Microcytosis Sodium (137-145) mmol/L Potassium (3.5-5.1) mmol/L Chloride (98-107) mmol/L Carbon Dioxide (22-30) mmol/L Anion Gap mmol/L BUN (9-20) mg/dL Creatinine (0.66-1.25) mg/dL Est GFR (CKD-EPI)AfAm (>60 ml/min/1.73 sqM) Est GFR (CKD-EPI)NonAf (>60 ml/min/1.73 sqM) Glucose (74-99) mg/dL Plasma Lactic Acid Barrie (0.7-2.0) mmol/L Calcium (8.4-10.2) mg/dL Total Bilirubin (0.2-1.3) mg/dL AST (17-59) U/L ALT (21-72) U/L Alkaline Phosphatase (38-126) U/L Total Protein (6.3-8.2) g/dL Albumin (3.5-5.0) g/dL Lipase (23-300) U/L Urine Color Yellow Urine Appearance Cloudy (Clear) Urine pH 5.5 (5.0-8.0) Ur Specific Bent 1.018 (1.001-1.035) Urine Protein 1+ H (Negative) Urine Glucose (UA) Negative (Negative) Urine Ketones Negative (Negative) Urine Blood Trace H (Negative) Urine Nitrite Negative (Negative) Urine Bilirubin Negative (Negative) Urine Urobilinogen <2.0 (<2.0) mg/dL Ur Leukocyte Esterase Large H (Negative) Urine RBC 3 (0-5) /hpf Urine WBC >182 H (0-5) /hpf Urine WBC Clumps Many H (None) /hpf Urine Bacteria Many H (None) /hpf Disposition Clinical Impression: Pancreatitis Disposition: ADMITTED IP TO THIS HOSP Condition: Serious
[2018-11-11 06:26] LABS: Anisocytosis Slight; Basophils % (A) 0 %; Eosinophils # (A) 0.1 k/uL (0-0.7); Eosinophils % (A) 0 %; HGB 9.7 gm/dL (13.0-17.5); Hypochromasia Moderate; Lymphocytes # (A) 1.2 k/uL (1.0-4.8); Lymphocytes % (A) 9 %; MCH 26.1 pg (25.0-35.0); MCHC 31.1 g/dL (31.0-37.0); MCV 83.7 fL (80.0-100.0); Mean Platelet Volume 12.2; Microcytosis Slight; Monocytes # (A) 0.9 k/uL (0-1.0); Monocytes % (A) 7 %; Neutrophils # (A) 10.2 k/uL (1.3-7.7); Neutrophils % (A) 81 %; Platelet Count 238 k/uL (150-450); Poikilocytosis Moderate; RBC 3.71 m/uL (4.30-5.90); RDW 19.7 % (11.5-15.5); WBC 12.5 k/uL (3.8-10.6)
[2018-11-11 06:30] LABS: Appearance,Urine Cloudy (Clear); Bacteria,Urine Many /hpf; Bilirubin,Urine Negative (Negative); Blood,Urine Trace (Negative); Color,Urine Yellow; Glucose,Urine (UA) Negative (Negative); Ketones,Urine Negative (Negative); Leukocyte Esterase,Urine Large (Negative); Nitrite,Urine Negative (Negative); PH, Urine 5.5 (5.0-8.0); Protein,Urine 1+ (Negative); RBC,Urine 3 /hpf (0-5); Specific Gravity,Urine 1.018 (1.001-1.035); Urobilinogen,Urine <2.0 mg/dL (<2.0); WBC,Urine >182 /hpf (0-5)
[2018-11-11 06:34] LABS: ALT 38 U/L (21-72); AST 34 U/L (17-59); African American GFR (CKD) >90 (>60 ml/min/1.73 sqM); Albumin 2.7 g/dL (3.5-5.0); Alkaline Phosphatase 254 U/L (38-126); Anion Gap 10 mmol/L; Blood Urea Nitrogen 60 mg/dL (9-20); Calcium 8.9 mg/dL (8.4-10.2); Carbon Dioxide 19 mmol/L (22-30); Chloride 110 mmol/L (98-107); Glucose 81 mg/dL (74-99); Potassium 4.2 mmol/L (3.5-5.1); Sodium 139 mmol/L (137-145); Total Bilirubin 0.5 mg/dL (0.2-1.3); Total Protein 5.6 g/dL (6.3-8.2)
[2018-11-11] MEDS ORDERED: ONDANSETRON 4 MG/2 ML VIAL IVP STA (07:03)
[2018-11-11] MEDS ORDERED: HYDROmorphone 2 MG/ML 1 ML SYRINGE IVP STA (07:07)
[2018-11-11] MEDS ORDERED: NALOXONE 0.4 MG/ML 1 ML VIAL IV PRN ×2 (08:41→08:53)
[2018-11-11] MEDS ORDERED: ONDANSETRON 4 MG/2 ML VIAL IVP PRN (08:41)
--- NOTE | 2018-11-11 08:46 | CT ---
EXAMINATION TYPE: CT abdomen pelvis w con DATE OF EXAM: 11/11/2018 COMPARISON: Prior CT dated 07/29/2018 HISTORY: Abd pain CT DLP: 940.2 mGycm Automated exposure control for dose reduction was used. TECHNIQUE: Helical acquisition of images from the lung bases through the pelvis have been completed. CONTRAST: Performed without Oral Contrast and with IV Contrast, patient injected with 80 mL of Isovue 300. FINDINGS: Lack of oral contrast may compromise the exam LUNG BASES: Similar appearance, bandlike area of increased attenuation at the left lung base extends to the pleural surface posteriorly similar to prior exam, no pleural or pericardial effusion. AORTA: Question graft at the site of the inferior mesenteric artery, large vessel is present with karlene e eccentric luminal plaque, possible wall calcification similar to prior exam. Evidence of chronic suarez perior mesenteric artery occlusion again seen, stable truncated appearance with vacuum enhancement as on prior. LIVER/GB: There is some prominence of the central biliary ducts similar to prior exam, gallbladder is absent. Prominence in the region of the expected region of the splenoportal confluence is again seen , splenic vein and artery no longer seen. PANCREAS: By history there is been a pancreatic transplant, pancreas somewhat foreshortened, there is prominence of the pancreatic duct as on prior exam. Possible distal pancreatectomy. SPLEEN: Postsplenectomy ADRENALS: No significant interval change is seen. KIDNEYS: No significant interval change is seen. REPRODUCTIVE ORGANS: No significant abnormality is seen BOWEL: Postop changes are again noted. Anterior to the stomach difficult to exclude fistula to the sk in surface, axial image 22. Surgical suture is present associated with a loop of bowel in the lower a bdomen as on prior, mild distention with some dependent high attenuation possibly related to radiopaq ue medication. Multiple surgical sutures present along the anterior abdominal wall and within the upp er abdomen and bowel. There is an ostomy in the right lower quadrant containing bowel and fat. Multip le bowel loops appear to course towards the skin surface anteriorly. There is some inflammatory chinchilla e present within the mesenteric fat not seen and prior exam at the level of the aortic bifurcation le linette, axial images [id number] and 48 which is an interval finding, some postoperative changes to the small b owel at this level is noted extending towards the skin surface. Rectus musculature is not well-define d and is likely atrophic. Suspect the duodenum has been partially resected. Apparent stump is present in the right upper quadrant. Some possible inflammatory change present adjacent to the patient's inf erior mesenteric artery bypass the level of the calcification in an eccentric plaque towards the left upper quadrant has developed in the interval. FREE AIR: No Free Air visible. ASCITES: None visible. PELVIC ADENOPATHY: None visualized. RETROPERITONEAL ADENOPATHY: No Retroperitoneal Adenopathy visible. URINARY BLADDER: No significant abnormality is seen. OSSEOUS STRUCTURES: No significant abnormality is seen. IMPRESSION: EXTENSIVE POSTOPERATIVE FINDINGS SIMILAR TO PRIOR EXAM, SOME INTERVAL DEVELOPMENT OF INFLAMMATORY JONES NGE IN THE MESENTERIC FAT AND ADJACENT TO THE INFERIOR MESENTERIC ARTERY BYPASS DESCRIBED, SUSPECT ED INTERVAL SURGERY DESCRIBED, CORRELATE FOR PATIENT'S SURGICAL HISTORY. DIFFICULT TO EXCLUDE SEAN JOCELYN CUTANEOUS FISTULA, CORRELATE. LACK OF ORAL CONTRAST COULD COMPROMISE SENSITIVITY. THE MASS DESCRI BED IN THE PREVIOUS EXAM IN THE HEAD OF THE PANCREAS IS NOT SEEN WITH CERTAINTY. THERE IS SOME PERSIS TENT BILIARY DUCTAL DILATATION. Additional findings above.
[2018-11-11] MEDS: HYDROmorphone 1 MG/ML 1 ML SYRINGE IVP PRN ×4 (10:42→20:53)
[2018-11-11] MEDS: SODIUM CHLORIDE 0.9% 1,000 ML IV SCH ×2 (14:34→20:29)
[2018-11-11] MEDS ORDERED: ACETAMINOPHEN TAB 325 MG TAB PO PRN (15:20)
[2018-11-11] MEDS ORDERED: ALBUTEROL NEBULIZED 2.5 MG/3 ML INHALATION PRN (15:22)
--- NOTE | 2018-11-11 15:25 | P.HPIM ---
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 He presented to the ER with complaints of abdominal pain.laboratory analysis showed an elevated lipase of 2000. CT abdomen and pelvis was consistent with his chronic known changes but did not show any acute significant. He was started on IV fluids and Dilaudid in the ER. He was admitted for further monitoring. Patient seen and examined at bedside with his mother present. He states that last night he started having abdominal pain. Periumbilical and consistent with his prior episodes of pancreatitis. It came on suddenly. It was not associated with any nausea or vomiting. He did not have any radiation. He immediately came to the emergency department as he has had multiple bouts of recurrent pancreatitis. He reports that he is currently receiving TPN with lipids. His last lipid infusion was on Saturday for his once weekly. He recently spent [address] [facility] secondary to multiple fistulas. He currently has 6 fistula to the abdominal wall that are covered with an ileostomy bag and drainage tube, he does have an ostomy in his right lower quadrant. He has been on a clear liquid diet for the last 90 days. Plans are for return to the [facility] for repeat surgery to try to correct all of the fistula, if this is not successful patient will have to have repeat mul tiorgan transplant. he denies any recent cough,cold, fever, flu. He has not had any recent increa sed output from his ostomy. He denies any dysuria or urinary frequency. Review of Systems Pertinent positives and negatives as discussed in HPI, a complete review of systems was performed and all other systems are negative. 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 and the patient ultimately had multi-organ transplantation including the stomach, small bowel, duodenum and pancreas 2002, post operative complications including 2 dehiscience s and developed fistula twice-has ileostomy and an abdominal wound drainage bag, recurrent pancreatitis, history of adrenal insufficiency maintained on Cortef, immunosuppressed, chronic mesenteric vein thrombosis, 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 blood clot in aortic graft History of Any Multi-Drug Resistant Organisms: C-DIFF, ESBL, MRSA Date of last positivie culture/infection: MRSA sputum 05/29/17 MDRO Source:: C-diff stool 05/11/18 colonized Past Surgical History: Bowel Resection, Cholecystectomy Additional Past Surgical History / Comment(s): Multivisceral organ transplant including bowel, doudenum,pancreas, and stomach at [facility],spleen removed, left knee arthrotomy, EGD, colonoscopy, ERCP with insertion of a pancreatic duct stent- since removed . ileostomy in october 2017, dehised x 2, repair of fistula, second fistula appeared may 01, 2018, pt currently has ostomy bag in which fistula drained into, colonized c-diff, MRSA in sputum a year ago, as infant valve surgery, varghese catheter. fistulas returned after attempted repair. Trach. September 2018 bowel resection with fistula repair at [facility] Past Anesthesia/Blood Transfusion Reactions: No Reported Reaction Additional Past Anesthesia/Blood Transfusion Reaction / Comment(s): STATES R/T T O MULTIPLE SX HE REQUIRES A LOT OF MEDICATION for anesthesia. He has had multiple blood transfusions without reaction. Smoking Status: Former smoker Additional History: Lives with his significant other - Past Family History Mother History Unknown: Yes Additional Family Medical History / Comment(s): pt is adopted, does not know any hx Father History Unknown: Yes Additional Family Medical History / Comment(s): Pt is adopted and knows no history. Medications and Allergies Home Medications Medication Instructions Recorded Confirmed Type Ferrous Gluconate 325 mg PO BID 09/02/13 11/11/18 History Sertraline [Zoloft] 150 mg PO DAILY 09/02/13 11/11/18 History Albuterol Sulfate [Proair Hfa] 2 puff INHALATION RT-Q6H PRN 12/19/16 11/11/18 History traZODone HCL 100 mg PO HS 12/19/16 11/11/18 History Budesonide/Formoterol Fumarate 2 puff INHALATION RT-BID 05/17/17 11/11/18 History [Symbicort 160-4.5 Mcg Inhaler] Methadone [Dolophine] 10 mg PO QAM 05/17/17 11/11/18 History clonazePAM [Klonopin ODT Wafer] 0.25 mg PO HS 12/12/17 11/11/18 History HYDROcodone/APAP 10-325MG [[place] 1 tab PO Q4H PRN 01/10/18 11/11/18 History 10-325] Methadone [Dolophine] 5 mg PO HS 01/22/18 11/11/18 History Gabapentin 1,200 mg PO TID 06/18/18 11/11/18 History Tacrolimus [Prograf] 2 mg PO BID 07/18/18 11/11/18 History Baclofen 5mg/Ml Liquid 10 mg PO TID 11/11/18 11/11/18 History Ergocalciferol [Vitamin D2] 50,000 unit PO MOWEFR 11/11/18 11/11/18 History Hydrocortisone Sodium Succ 0.4 ml IV Q8H 11/11/18 11/11/18 History Metoprolol Tartrate [Lopressor] 12.5 mg PO BID 11/11/18 11/11/18 History Nystatin 100,000 Unit/ml Susp 500,000 unit PO QID 11/11/18 11/11/18 History [Mycostatin Oral Susp] QUEtiapine [SEROquel] 50 mg PO HS 11/11/18 11/11/18 History Sulfamethox-Tmp 800-160Mg [Bactrim 0.5 tab PO MOWEFR 11/11/18 11/11/18 History DS 800-160 mg] Allergies Allergy/AdvReac Type Severity Reaction Status Date / Time aspirin Allergy GI Verified 11/11/18 07:52 BLEEDING , ABDOMINAL PAIN heparin AdvReac abdominal Verified 11/11/18 07:52 pain , GI bleeding ketorolac tromethamine AdvReac migraines Verified 11/11/18 07:52 [From Toradol] morphine AdvReac Itching Verified 11/11/18 07:52 Physical Exam Osteopathic Statement: *. No significant issues noted on an osteopathic structural exam other than those noted in the History and Physical/Consult. Vitals: Vital Signs Temp Pulse Pulse Resp BP BP Pulse Ox 11/11/18 13:48 97.7 F 73 16 121/73 98 07/23/19 08:06 103 H 17 115/66 94 L 11/11/18 06:15 105 H 20 111/70 96 11/11/18 05:17 98.1 F 108 H 16 114/77 98 Intake and Output 11/10/18 11/11/18 11/11/18 22:59 06:59 14:59 Intake Total 540 Balance 540 Intake: Oral 540 Other: # Voids 1 Weight 88.451 kg General: non toxic, no distress, appears at stated age, normal weight Derm: mulitple open abdominal wounds, warm, dry Head: atraumatic, normocephalic, symmetric Eyes: EOMI, no lid lag, anicteric sclera, pupils equal round reactive to light ENT: Nose and ears atraumatic, no thrush, no pharyngeal erythema Neck: No thyromegaly, no cervical lymphadenopathy, trachea midline, supple Mouth: no lip lesion, mucus membranes moist Cardiovascular: S1S2 reg, no murmur, positive posterior tibial pulse bilateral, no edema, capillary refill less than 2 seconds Lungs: CTA bilateral, no rhonchi, no rales , no accessory muscle use Abdominal: soft, nontender to palpation, no guarding, no appreciable organomegaly, normal bowel sounds, 6 abdominal wall fistulas with ostomy bag in place over draining dark clear material Ext: no gross muscle atrophy, muscle strength 5 out of 5 in all 4 extremities grossly, no contractures, Neuro: CN II-XI grossly intact, light touch intact all 4 extremities, finger to nose within normal limits, Psych: Alert, oriented, appropriate affect Results CBC & Chem 7: 11/11/18 06:13 11/11/18 06:13 Labs: Abnormal Lab Results - Last 24 Hours (Table) 11/11/18 11/11/18 11/11/18 Range/Units 06:13 06:13 06:13 WBC 12.5 H (3.8-10.6) k/uL RBC 3.71 L (4.30-5.90) m/uL Hgb 9.7 L (13.0-17.5) gm/dL Hct 31.0 L (39.0-53.0) % RDW 19.7 H (11.5-15.5) % Neutrophils # 10.2 H (1.3-7.7) k/uL Chloride 110 H (98-107) mmol/L Carbon Dioxide 19 L (22-30) mmol/L BUN 60 H (9-20) mg/dL Alkaline Phosphatase 254 H (38-126) U/L Total Protein 5.6 L (6.3-8.2) g/dL Albumin 2.7 L (3.5-5.0) g/dL Lipase 2014 H (23-300) U/L Urine Protein 1+ H (Negative) Urine Blood Trace H (Negative) Ur Leukocyte Esterase Large H (Negative) Urine WBC >182 H (0-5) /hpf Urine WBC Clumps Many H (None) /hpf Urine Bacteria Many H (None) /hpf CT scan - abdomen: report reviewed CT scan - pelvis: report reviewed Thrombosis Risk Factor Assmnt - DVT/VTE Prophylaxis DVT/VTE Prophylaxis: Pharmacologic Prophylaxis ordered - Choose All That Apply Any of the Below Risk Factors Present?: Yes Each Factor Represents 1 point: Abnormal pulmonary function (COPD), Age 41-60 years Other Risk Factors: Yes Each Risk Factor Represents 2 Points: Major surgery, Patient confined to bed Each Risk Factor Represents 3 Points: History of DVT/PE Other congenital or acquired thrombophilia - If yes, enter type in comment: No Thrombosis Risk Factor Assessment Total Risk Factor Score: 9 Thrombosis Risk Factor Assessment Level: High Risk Assessment and Plan Assessment: recurrent acute pancreatitis -Patient feels appropriate to have clear liquid diet -Pain control -Antiemetics -Reorder home TPN, no lipids at this point in time 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 - continue with prograft/ steroids -Keep dressing in place Adrenal insufficiency - Continue with home IV hydrocortisone dosing - follow blood pressure P. A fib - metoprolol - no AC due to hx of GI bleed COPD without exacerbation - proair, symbicort Chronic malnutrition TPN dependent - TPN - ensure clear normocytic anemia, at baseline - follow CBC - hold iron until abd pain improved Hyperchloremic metabolic acidosis with dehydration - IVF Asymptomatic bacturia - no need for ABX at this time The patient is admitted with an anticipated greater than 2 midnight stay for evaluation of recurrent pancreatitis. Surrogate decision-maker: mother shelli or significant other Kylie CODE STATUS:Full, no prolonged mechanical ventilation DVT prophylaxis: SCDs, hx of GI bleed on heparin Discussed with: Patient, family, nursing, ED physician Anticipated discharge date: 2-[address]: home A total of 70 minutes was spent on the care of this complex patient more than 50% of the time was spent in counseling and care coordination.
[2018-11-11] MEDS ORDERED: BACLOFEN PO SCH (16:00)
[2018-11-11 16:08] VITALS: BMI 25.0
[2018-11-11 16:37] LABS: Glucose,Whole Blood 128 mg/dL (75-99)
[2018-11-11] MEDS: NYSTATIN 100,000 UNIT/ML SUSP 500,000 UNIT/5 ML CUP PO SCH ×2 (17:21→22:27)
[2018-11-11] MEDS: GABAPENTIN 400 MG CAP PO SCH ×2 (17:21→22:26)
[2018-11-11] MEDS: HYDROCORTISONE SUCCINATE 100 MG/2 ML VIAL IV SCH ×2 (17:23→23:54)
[2018-11-11] MEDS: BACLOFEN 10 MG TAB PO SCH ×2 (18:01→22:29)
[2018-11-11 18:14] LABS: Ionized Calcium 5.2 mg/dL (4.5-5.3)
[2018-11-11 18:22] LABS: Magnesium 1.8 mg/dL (1.6-2.3); Phosphorus 3.4 mg/dL (2.5-4.5)
[2018-11-11] MEDS ORDERED: MVI, ADULT NO.4 WITH VIT K 10 ML, TRACE (CONC-1ML/DOSE) 1 ML in AMINO ACID 5%-D15W+LYTE... IV ONE ×3 (19:00)
[2018-11-11] MEDS: SYMBICORT 160-4.5 MCG INHALER INHALATION SCH (19:20)
[2018-11-11 21:34] LABS: Glucose,Whole Blood 183 mg/dL (75-99)
[2018-11-11] MEDS: clonazePAM 0.5 MG TAB PO SCH (22:26)
[2018-11-11] MEDS: QUEtiapine 50 MG TAB PO SCH (22:26)
[2018-11-11] MEDS: METOPROLOL TARTRATE 12.5 MG TAB PO SCH (22:26)
[2018-11-11] MEDS: traZODone HCL 100 MG TAB PO SCH (22:26)
[2018-11-11] MEDS: METHADONE 5 MG TAB PO SCH (22:27)
[2018-11-11] MEDS: TACROLIMUS 1 MG CAP PO SCH (22:28)
[2018-11-12] MEDS ORDERED: AMINO ACID 5% IV ONE (01:30)
[2018-11-12] MEDS ORDERED: [UNRECOGNIZED DRUG - OTHER] IV ONE (01:30)
[2018-11-12] MEDS: HYDROmorphone 1 MG/ML 1 ML SYRINGE IVP PRN ×7 (01:45→22:36)
[2018-11-12 04:38] LABS: Anisocytosis Slight; HCT 30.1 % (39.0-53.0); HGB 8.8 gm/dL (13.0-17.5); Hypochromasia Marked; MCH 25.2 pg (25.0-35.0); MCHC 29.3 g/dL (31.0-37.0); MCV 86.1 fL (80.0-100.0); Mean Platelet Volume 12.1; Microcytosis Slight; Platelet Count 205 k/uL (150-450); Poikilocytosis Moderate; RDW 19.7 % (11.5-15.5); WBC 12.7 k/uL (3.8-10.6)
[2018-11-12 04:59] LABS: ALT 44 U/L (21-72); AST 38 U/L (17-59); African American GFR (CKD) >90 (>60 ml/min/1.73 sqM); Albumin 2.5 g/dL (3.5-5.0); Alkaline Phosphatase 237 U/L (38-126); Anion Gap 7 mmol/L; Blood Urea Nitrogen 32 mg/dL (9-20); Calcium 8.1 mg/dL (8.4-10.2); Carbon Dioxide 24 mmol/L (22-30); Chloride 109 mmol/L (98-107); Glucose 226 mg/dL (74-99); Magnesium 1.7 mg/dL (1.6-2.3); Phosphorus 3.2 mg/dL (2.5-4.5); Sodium 140 mmol/L (137-145); Total Bilirubin 0.4 mg/dL (0.2-1.3); Total Protein 5.3 g/dL (6.3-8.2)
[2018-11-12] MEDS: SODIUM CHLORIDE 0.9% 1,000 ML IV SCH ×2 (05:48→12:07)
[2018-11-12 07:17] LABS: Glucose,Whole Blood 195 mg/dL (75-99)
[2018-11-12] MEDS: SYMBICORT 160-4.5 MCG INHALER INHALATION SCH ×2 (07:21→18:55)
[2018-11-12] MEDS: SERTRALINE 100 MG TAB PO SCH (08:38)
[2018-11-12] MEDS: NYSTATIN 100,000 UNIT/ML SUSP 500,000 UNIT/5 ML CUP PO SCH ×4 (08:39→21:36)
[2018-11-12] MEDS: GABAPENTIN 400 MG CAP PO SCH ×3 (08:39→21:36)
[2018-11-12] MEDS: HYDROCORTISONE SUCCINATE 100 MG/2 ML VIAL IV SCH ×2 (08:40→16:11)
[2018-11-12] MEDS: METHADONE 10 MG TAB PO SCH (08:40)
[2018-11-12] MEDS: METOPROLOL TARTRATE 12.5 MG TAB PO SCH ×2 (08:41→21:36)
[2018-11-12] MEDS: BACLOFEN 10 MG TAB PO SCH ×3 (08:41→21:36)
[2018-11-12] MEDS: TACROLIMUS 1 MG CAP PO SCH ×2 (08:41→21:36)
[2018-11-12] MEDS ORDERED: SULFAMETHOX-TMP 800-160MG 1 EACH TAB PO SCH (09:00)
[2018-11-12] MEDS: MAGNESIUM SULFATE-D5W PMX 1 GM in DEXTROSE/WATER 1 100ML.BAG IVPB SCH ×2 (10:44→12:02)
[2018-11-12 11:53] LABS: Glucose,Whole Blood 170 mg/dL (75-99)
[2018-11-12] MEDS: INSULIN ASPART (NovoLOG) 100 UNIT/ML VIAL SQ SCH ×3 (12:15→21:38)
--- NOTE | 2018-11-12 12:44 | P.PN ---
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 He presented to the ER with complaints of abdominal pain.laboratory analysis showed an elevated lipase of 2000. CT abdomen and pelvis was consistent with his chron ic known changes but did not show any acute significant changes. He was started on IV fluids and Dilaudid in the ER. He was admitted for further monitoring.He recently spent 90 days to the [facility] secondary to multiple fistulas. He currently has 6 fistula to the abdominal wall that are covered with an ileostomy bag and drainage tube, he does have an ostomy in his right lower quadrant. He has been on a clear liquid diet for the last 90 days. Plans are for return to the [facility] for repeat surgery to try to correct all of the fistula, if this is not successful patient will have to have repeat multiorgan transplant. In the morning after admission his platelets improved. His pain was getting slightly better but not completely gone. Patient seen and examined at bedside. He states his pain is slightly improved from. He is not having any vomiting. He is not having any nausea. He is taking in small amounts of clear liquids. He denies any change in output from his ostomy site. No chest pain or shortness of breath. Objective - Vital Signs Vital signs: Vital Signs Temp 98.1 F 11/12/18 06:14 Pulse 68 11/12/18 06:14 Resp 17 11/12/18 08:00 BP 120/70 11/12/18 06:14 Pulse Ox 99 11/12/18 06:14 Intake & Output 11/11/18 11/12/18 11/12/18 18:59 06:59 18:59 Intake Total 540 100 Output Total 1600 3194 4339 Balance -2240 -8467 -2765 Weight 88.451 kg Intake: Oral 540 100 Output: Urine 1475 175 Stool 1600 2400 2500 Other: Voiding Method Urinal Urinal Urinal Diaper # Voids 2 - Exam General: ill appearing, no distress, appears at stated age Derm: warm, dry Head: atraumatic, normocephalic, symmetric Eyes: EOMI, no lid lag, anicteric sclera Mouth: no lip lesion, mucus membranes moist Cardiovascular: S1S2 reg, no murmur, positive posterior tibial pulse bilateral, Lungs: decreased bs bilateral, no rhonchi, no rales , no accessory muscle use Abdominal: soft, 6 abdominal wall fistulas with ostomy bag in place over draining dark clear material, +tender to palpation diffusely, no guarding, no appreciable organomegaly Ext: no gross muscle atrophy, no edema, no contractures Neuro: CN II-XI grossly intact, no focal neuro deficits Psych: Alert, oriented, appropriate affect - Labs CBC & Chem 7: 11/12/18 04:11 11/12/18 04:11 Labs: Abnormal Lab Results - Last 24 Hours (Table) 11/11/18 11/11/18 11/12/18 Range/Units 16:33 21:29 04:11 WBC 12.7 H (3.8-10.6) k/uL RBC 3.50 L (4.30-5.90) m/uL Hgb 8.8 L (13.0-17.5) gm/dL Hct 30.1 L (39.0-53.0) % MCHC 29.3 L (31.0-37.0) g/dL RDW 19.7 H (11.5-15.5) % Chloride (98-107) mmol/L BUN (9-20) mg/dL Glucose (74-99) mg/dL POC Glucose (mg/dL) 128 H 183 H (75-99) mg/dL Calcium (8.4-10.2) mg/dL Alkaline Phosphatase (38-126) U/L Total Protein (6.3-8.2) g/dL Albumin (3.5-5.0) g/dL Lipase (23-300) U/L 11/12/18 11/12/18 11/12/18 Range/Units 04:11 07:11 11:50 WBC (3.8-10.6) k/uL RBC (4.30-5.90) m/uL Hgb (13.0-17.5) gm/dL Hct (39.0-53.0) % MCHC (31.0-37.0) g/dL RDW (11.5-15.5) % Chloride 109 H (98-107) mmol/L BUN 32 H (9-20) mg/dL Glucose 226 H (74-99) mg/dL POC Glucose (mg/dL) 195 H 170 H (75-99) mg/dL Calcium 8.1 L (8.4-10.2) mg/dL Alkaline Phosphatase 237 H (38-126) U/L Total Protein 5.3 L (6.3-8.2) g/dL Albumin 2.5 L (3.5-5.0) g/dL Lipase 457 H (23-300) U/L Assessment and Plan Assessment: recurrent acute pancreatitis -clear liquid diet - IVF -Pain control -Antiemetics -home TPN, no lipids at this point in time 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 A fib - metoprolol - no AC due to hx of GI bleed COPD without exacerbation - proair, symbicort Chronic malnutrition TPN dependent - TPN - ensure clear normocytic anemia, at baseline - follow CBC - hold iron until abd pain improved Asymptomatic bacturia - no need for ABX at this time Hyperchloremic metabolic acidosis with dehydration, resolved DVT prophylaxis: SCDs, hx of GI bleed on heparin Discussed with: Patient, nursing Anticipated discharge date: 2-[address]: home A total of 35 minutes was spent on the care of this complex patient more than 50% of the time was spent in counseling and care coordination.
--- NOTE | 2018-11-12 16:13 | CDI ---
Documentation Clarification Form Date: 11/12/2018 3:47:47 PM From: Lora Meyers RN, CCDS Admit Date: 11/11/2018 8:53:00 AM Patient Name: Adrian Dubon Visit Number: [id number] Discharge Date: ATTENTION: The Clinical Documentation Specialists (CDI) and [facility] Coding Staff appreciate your assistance in clarifying documentation. Please respond to the clarification below the line at the bottom and electronically sign. The CDI & [facility] Coding staff will review the response and follow-up if needed. Please note: Queries are made part of the Legal Health Record. If you have any questions, please contact the author of this message via ITS. Dr. Jessica Lopez Chronic Malnutrition TPN dependent has been documented in the H&P and subsequent progress notes and further clarification is needed. History/Risk Factors: Chronic pancreatitis, Congenital defect of the intestinal, tract, Bowel transplant/development of multiple abdominal wall fistulas Clinical Indicators: 48-year-old male with history of multiple surgical procedures on the abdomen, multiple draining fistulas is on ongoing TPN for nutritional support. He presented with abdominal pain and elevated lipase level of 2014 was consistent with acute on chronic pancreatitis. Labs: Total Protein 5.6, Albumin 2.7 Current BMI: 25.0 Insufficient energy intake: Poor, 25-50% intake on clear liquid, Malabsorption Treatment: Dietary Consult: Yes TPN: Cyclic regimen Lab monitoring CBC, Lytes, Lipid panel per protocol Monitor diet tolerance, standing scale weight In your professional opinion, can you please further clarify if the findings of chronic malnutrition signify one of the following conditions? Mild Protein-Calorie Malnutrition Moderate Protein-Calorie Malnutrition Severe Protein-Calorie Malnutrition Other condition, please specify Unable to determine (Last Revision: October 2018) Severe protein calorie malnutrition MTDD
[2018-11-12 16:49] LABS: Glucose,Whole Blood 125 mg/dL (75-99)
[2018-11-12] MEDS ORDERED: MVI, ADULT NO.4 WITH VIT K 10 ML, TRACE (CONC-1ML/DOSE) 1 ML in AMINO ACID 5%-D15W+LYTE... IV ONE ×9 (19:00)
[2018-11-12 21:16] LABS: Glucose,Whole Blood 185 mg/dL (75-99)
[2018-11-12] MEDS: METHADONE 5 MG TAB PO SCH (21:36)
[2018-11-12] MEDS: traZODone HCL 100 MG TAB PO SCH (21:36)
[2018-11-12] MEDS: QUEtiapine 50 MG TAB PO SCH (21:36)
[2018-11-12] MEDS: clonazePAM 0.5 MG TAB PO SCH (21:37)
[2018-11-13] MEDS: HYDROCORTISONE SUCCINATE 100 MG/2 ML VIAL IV SCH ×2 (00:24→07:35)
[2018-11-13] MEDS: SODIUM CHLORIDE 0.9% 1,000 ML IV SCH ×4 (00:24→17:34)
[2018-11-13] MEDS: HYDROcodone/APAP 10-325MG 1 EACH TAB PO PRN ×2 (01:18→12:47)
[2018-11-13] MEDS ORDERED: AMINO ACID 5% IV ONE ×3 (01:30)
[2018-11-13] MEDS ORDERED: [UNRECOGNIZED DRUG - OTHER] IV ONE ×3 (01:30)
[2018-11-13] MEDS: HYDROmorphone 1 MG/ML 1 ML SYRINGE IVP PRN ×7 (02:28→20:31)
[2018-11-13] MEDS: SYMBICORT 160-4.5 MCG INHALER INHALATION SCH ×2 (07:32→19:33)
[2018-11-13] MEDS: GABAPENTIN 400 MG CAP PO SCH ×2 (07:36→16:17)
[2018-11-13] MEDS: METHADONE 10 MG TAB PO SCH (07:36)
[2018-11-13] MEDS: SERTRALINE 100 MG TAB PO SCH (07:37)
[2018-11-13] MEDS: METOPROLOL TARTRATE 12.5 MG TAB PO SCH (07:37)
[2018-11-13] MEDS: TACROLIMUS 1 MG CAP PO SCH (07:38)
[2018-11-13] MEDS: BACLOFEN 10 MG TAB PO SCH (07:38)
[2018-11-13] MEDS: NYSTATIN 100,000 UNIT/ML SUSP 500,000 UNIT/5 ML CUP PO SCH ×3 (07:38→17:35)
[2018-11-13] MEDS: INSULIN ASPART (NovoLOG) 100 UNIT/ML VIAL SQ SCH ×3 (07:42→16:44)
[2018-11-13 07:52] LABS: Glucose,Whole Blood 177 mg/dL (75-99)
[2018-11-13] MEDS ORDERED: SODIUM CHLORIDE 0.9% 1,000 ML IV ONE ×3 (09:41→14:00)
[2018-11-13] MEDS ORDERED: PANTOPRAZOLE 40 MG/10 ML VIAL IVP SCH (09:45)
[2018-11-13 10:15] LABS: African American GFR (CKD) >90 (>60 ml/min/1.73 sqM); Anion Gap 6 mmol/L; Blood Urea Nitrogen 40 mg/dL (9-20); Calcium 8.5 mg/dL (8.4-10.2); Carbon Dioxide 26 mmol/L (22-30); Chloride 110 mmol/L (98-107); Glucose 134 mg/dL (74-99); Magnesium 2.1 mg/dL (1.6-2.3); Phosphorus 3.4 mg/dL (2.5-4.5); Potassium 4.4 mmol/L (3.5-5.1); Sodium 142 mmol/L (137-145)
[2018-11-13 10:40] LABS: Glucose,Whole Blood 193 mg/dL (75-99)
--- NOTE | 2018-11-13 11:06 | CT ---
EXAMINATION TYPE: CT abdomen pelvis w con DATE OF EXAM: 11/13/2018 COMPARISON: CT abdomen and pelvis 2 days ago. HISTORY: Gross hematuria, hematemesis, multiple fistulas. CT DLP: 822.1 mGycm, Automated Exposure Control for Dose Reduction was Utilized. CONTRAST: CT scan of the abdomen and pelvis is performed without oral but with IV Contrast, patient injected wi th 100 mL of Isovue 300. FINDINGS: LUNG BASES: New small to tiny pericardial effusion anterior inferior aspect. Stable mild cardiomegaly . Persistent left basilar linear scarring and/or atelectasis. LIVER/GB: Persistent prominent left hepatic lobe with heterogeneous hypodense appearance of liver. Ga llbladder not visualized presumably surgically absent. Central biliary ducts are mildly prominent cor onal image 40 unchanged from prior. PANCREAS: Persistent bulkiness of the pancreatic head with ductal dilatation. SPLEEN: Spleen not seen presumed surgically absent. ADRENALS: No significant abnormality is seen. KIDNEYS: Symmetric cortical medullary uptake with delayed excretion. A few scattered small simple atif earing cysts bilaterally are redemonstrated. No new hydronephrosis. Bladder wall shows mild concentri c thickening similar to prior. There is a patent anterior superior sinus tract partially visualized m ay be connecting to adjacent small bowel loop. BOWEL: Body weight follow suboptimal secondary to lack of enteric contrast. There is debris filled st omach. There is fluid filled dilated duodenal sweep. Bowel immediately extends anterior to the right of midline. There are prominent fluid-filled bowel loops in the anterior abdomen with areas of wall t hickening extending to skin surface. Normal small bowel loops are in the anterior upper to mid abdome n. There are only a few nondilated bowel loops in the periphery of the lower abdomen and pelvis. Surg ical sutures are noted near focal prominent loop in the right upper pelvis. There is persistent sligh t mesenteric twisting of vessels seen best on axial image 41. Persistent right lower quadrant ostomy with collapsed bowel loop. PROSTATE/SEMINAL VESICLES: Scattered pelvic phleboliths. LYMPH NODES: No greater than 1cm abdominal or pelvic lymph nodes are appreciated. OSSEOUS STRUCTURES: Straightening of lumbar spine with moderate disc space narrowing and vacuum disc phenomenon L4-L5 level. OTHER: There is persistent suggestion of infrarenal abdominal aortic graft is ectatic course axial im age 34-containing large area of peripheral noncalcified plaque which abruptly tapers into smaller ves mazin extending centrally. No significant change from recent study. There is redemonstration of the anterior sutures through the skin surface into the intraperitoneal ca vity no axial image 47. Additional scattered sutures in the upper to mid abdomen are redemonstrated. IMPRESSION: 1. Must consider internal hernia as majority of dilated and prominent bowel is displaced anteriorly i nto the upper to mid abdomen with increasing distention and prominence and increasing wall thickening noted from prior. Consider nasogastric tube decompression. Bowel once again abuts the anterior abdom inal wall.
[2018-11-13 11:52] LABS: Glucose,Whole Blood 153 mg/dL (75-99)
[2018-11-13 12:03] LABS: Anisocytosis Moderate; HCT 24.3 % (39.0-53.0); HGB 7.4 gm/dL (13.0-17.5); Hypochromasia Marked; MCH 26.3 pg (25.0-35.0); MCHC 30.5 g/dL (31.0-37.0); MCV 86.5 fL (80.0-100.0); Microcytosis Slight; Platelet Count 217 k/uL (150-450); Poikilocytosis Moderate; RBC 2.81 m/uL (4.30-5.90); WBC 14.1 k/uL (3.8-10.6)
[2018-11-13 12:39] LABS: Band Neutrophils % 1 %; Lymphocytes # (M) 0.42 k/uL (1.0-4.8); Metamyelocytes # (M) 0.14 k/uL (0); Metamyelocytes % 1 %; Monocytes # (M) 0.56 k/uL (0-1.0); Myelocytes # (M) 0.14 k/uL (0); Myelocytes % 1 %; Neutrophils % (M) 91 %; Nucleated Red Blood Cells 0 /100 WBC (0-0); Total Cells Counted 200
[2018-11-13 12:41] LABS: RBC Fragments Present; Spherocytes Present
[2018-11-13 12:42] LABS: Large Platelets Present
--- NOTE | 2018-11-13 14:10 | P.CNPUL ---
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 The patient has had bouts of recurrent pancreatitis and at time of this current admission acute pancreatitis was again diagnosed. 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 His condition is been essentially followed up at the [facility]. The patient spent at least 90 days recently of the Coumadin clinic during which she had undergone 3 abdominal surgeries and he tells that the ultimate plan is to take off all of these fistulas and be considered for another chest ventilation at a later stage. He is on TPN for nutritional support. The patient arrived to [place] recently and he was about to go back to [facility] for further care. He is on long- term immunosuppression with Prograf and the patient has been taking Bactrim 3 times a week. I've taken care of on multiple occasions. He has multiple m edical problems and comorbidities in addition. At this point in time, the patient has blood or bloody material oozing from his enterococcus fistula multiple locations. He has a large bag, which is similar a colostomy bag over the anterior abdominal wall which is covering all of these fistulas. He got chest for to the intensive care unit because of ongoing bleed and hypotension. He is currently refusing to go back to the [facility]. Computed tomography scan of the abdomen that was done at time of admission showed postop findings with interval development of inflammatory changes in the mesenteric fat adjacent and inferior to the mesenteric artery. 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 Gastro cutaneous fistula was seen and this is at the site of a previous G-tube insertion. Addition, a repeat CAT scan was done today that showed again the fistulas that were present. There was debris's and the stomach. There was fluid filled dilated duodenal sweep. Bowel and immediately extends anterior to the right of the midline. There was prominent fluid-filled bowel loops in the anterior abdominal area with areas of wall thickening extending to the skin surface. The ostomy was collapsed. The patient did lose some blood during this current admission. His admission hemoglobin was at 9.7 and most recent hemoglobin is down to 7.4. He got moved to the intensive care unit and after arrival to the ICU he became slightly hypotensive and tachycardic and subsequently went into atrial fibrillation. His current rate is in the 120-140 range. His UA is abnormal. No positive blood cultures for now. He has a Varghese. He is receiving TPN overnight. White cell count is at 14.1. Review of Systems Constitutional: Reports anorexia, Reports chronic pain, Reports fatigue, Reports lethargy, Reports poor appetite, Reports weakness Eyes: bilateral tunnel vision/blind spots, denies as per HPI, denies blurred vision, denies bulging eye, denies decreased vision, denies diplopia, denies discharge, denies dry eye, denies irritation, denies itching, denies pain, denies photophobia, denies loss of peripheral vision, denies loss of vision Ears, nose, mouth and throat: Denies headache, Denies sore throat Breasts: absent: as per HPI, gynecomastia Cardiovascular: Reports decreased exercise tolerance, Reports dyspnea on exertion Respiratory: Reports dyspnea Gastrointestinal: Reports as per HPI, Reports abdominal pain, Reports indigestion Genitourinary: Reports as per HPI Musculoskeletal: Reports as per HPI, Reports atrophy, Reports gait dysfunction, Reports muscle weakness Musculoskeletal: absent: ankle pain, ankle stiffness, ankle swelling Integumentary: Reports as per HPI (Patient has intermittent fistula opening into the anterior abdominal wall and discussed earlier), Denies pruritus, Denies rash Neurological: Reports as per HPI Psychiatric: Reports anxiety Endocrine: Reports as per HPI Hematologic/Lymphatic: Reports as per HPI Allergic/Immunologic: Reports as per HPI 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 and the patient ultimately had multi-organ transplantation including the stomach, small bowel, duodenum and pancreas 2002, post operative complications including 2 dehisciences and developed fistula twice-has ileostomy and an abdominal wound drainage bag, recurrent pancreatitis, history of adrenal insufficiency maintained on Cortef, immunosuppressed, chronic mesenteric vein thrombosis, 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 blood clot in aortic graft History of Any Multi-Drug Resistant Organisms: C-DIFF, ESBL, MRSA Date of last positivie culture/infection: MRSA sputum 05/29/17 MDRO Source:: C-diff stool 05/11/18 colonized Past Surgical History: Bowel Resection, Cholecystectomy Additional Past Surgical History / Comment(s): Multivisceral organ transplant including bowel, doudenum,pancreas, and stomach at [facility] [place]- follows thru [facility],spleen removed, left knee arthrotomy, EGD, colonoscopy, ERCP with insertion of a pancreatic duct stent- since removed . ileostomy in october 2017, dehised x 2, repair of fistula, second fistula appeared may 01, 2018, pt currently has ostomy bag in which fistula drained into, colonized c-diff, MRSA in sputum a year ago, as valve surgery, varghese catheter. fistulas returned after attempted repair. Past Anesthesia/Blood Transfusion Reactions: No Reported Reaction Additional Past Anesthesia/Blood Transfusion Reaction / Comment(s): STATES R/T TO MULTIPLE SX HE REQUIRES A LOT OF MEDICATION for anesthesia. He has had multiple blood transfusions without reaction. Past Psychological History: Anxiety, Depression Smoking Status: Former smoker Past Alcohol Use History: None Reported Past Drug Use History: None Reported - Past Family History Mother History Unknown: Yes Additional Family Medical History / Comment(s): pt is adopted, does not know any hx Father History Unknown: Yes Additional Family Medical History / Comment(s): Pt is adopted and knows no history. Medications and Allergies Home Medications Medication Instructions Recorded Confirmed Type Ferrous Gluconate 325 mg PO BID 09/02/13 11/11/18 History Sertraline [Zoloft] 150 mg PO DAILY 09/02/13 11/11/18 History Albuterol Sulfate [Proair Hfa] 2 puff INHALATION RT-Q6H PRN 12/19/16 11/11/18 History traZODone HCL 100 mg PO HS 12/19/16 11/11/18 History Budesonide/Formoterol Fumarate 2 puff INHALATION RT-BID 05/17/17 11/11/18 History [Symbicort 160-4.5 Mcg Inhaler] Methadone [Dolophine] 10 mg PO QAM 05/17/17 11/11/18 History clonazePAM [Klonopin ODT Wafer] 0.25 mg PO HS 12/12/17 11/11/18 History HYDROcodone/APAP 10-325MG [[place] 1 tab PO Q4H PRN 01/10/18 11/11/18 History 10-325] Methadone [Dolophine] 5 mg PO HS 01/22/18 11/11/18 History Gabapentin 1,200 mg PO TID 06/18/18 11/11/18 History Tacrolimus [Prograf] 2 mg PO BID 07/18/18 11/11/18 History Baclofen 5mg/Ml Liquid 10 mg PO TID 11/11/18 11/11/18 History Ergocalciferol [Vitamin D2] 50,000 unit PO MOWEFR 11/11/18 11/11/18 History Hydrocortisone Sodium Succ 0.4 ml IV Q8H 11/11/18 11/11/18 History Metoprolol Tartrate [Lopressor] 12.5 mg PO BID 11/11/18 11/11/18 History Nystatin 100,000 Unit/ml Susp 500,000 unit PO QID 11/11/18 11/11/18 History [Mycostatin Oral Susp] QUEtiapine [SEROquel] 50 mg PO HS 11/11/18 11/11/18 History Sulfamethox-Tmp 800-160Mg [Bactrim 0.5 tab PO MOWEFR 11/11/18 11/11/18 History DS 800-160 mg] Allergies Allergy/AdvReac Type Severity Reaction Status Date / Time aspirin Allergy GI Verified 11/11/18 07:52 BLEEDING , ABDOMINAL PAIN heparin AdvReac abdominal Verified 11/11/18 07:52 pain , GI bleeding ketorolac tromethamine AdvReac migraines Verified 11/11/18 07:52 [From Toradol] morphine AdvReac Itching Verified 11/11/18 07:52 Physical Exam Vitals: Vital Signs Temp Pulse Resp BP BP Pulse Ox 11/13/18 09:53 98.2 F 91 16 101/53 95 11/13/18 08:00 18 11/13/18 06:00 98.0 F 85 18 121/78 97 11/12/18 21:00 98.5 F 90 18 114/70 96 11/12/18 15:29 17 Intake and Output 07/11/13/18 11/13/18 22:59 06:59 14:59 Intake Total 750 1000 480 Output Total 4850 4900 800 Balance -4100 -3900 -320 Intake: Oral 750 1000 480 Output: Urine 250 Stool 4600 4900 800 Other: Voiding Method Urinal Urinal Diaper Diaper # Voids 2 2 Physical Exam: The patient is awake and alert and the patient is not having any acute respiratory distress. Nevertheless on and off is having some abdominal pain. Head exam was generally normal. There was no scleral icterus or corneal arcus. Mucous membranes were moist. Neck was supple and without jugular venous distension, thyromegaly, or carotid bruits. Carotids were easily palpable bilaterally. There was no adenopathy. Lungs sounds are diminished bilaterally and the patient is an Varghese over the anterior chest area. Heart sounds are irregular and tachycardic consistent with atrial fibrillation and also cervical murmurs appreciated. Abdomen shows multiple enterocutaneous fistula over the anterior abdominal wall and there is a bloody output from the abdominal wall surface. The patient has also a gastrocutaneous fistula at the site of the previous G-tube insertion. There is also a ileostomy over the right lower quadrant of the abdomen that has put out only minimal amount over the past few days. No significant distention. Examination of the extremities revealed easily palpable radial, femoral and pedal pulses. There was no cyanosis, clubbing or edema. Examination of the skin revealed no evidence of significant rashes, suspicious appearing nevi or other concerning lesions. Abnormalities are mainly over the anterior abdominal wall as the patient has significant number of enterocutaneous fistulas. Psychiatric: Normal mood, affect, and normal mental status examination. Musculoskeletal: Normal range of motion, no weakness, no deformities Lymphatics: No lymphadenopathy was appreciated. Results - Laboratory Findings CBC and BMP: 11/13/18 09:22 11/13/18 09:22 Abnormal lab findings: Abnormal Labs 11/11/18 11/11/18 11/11/18 06:13 06:13 06:13 WBC 12.5 H RBC 3.71 L Hgb 9.7 L Hct 31.0 L MCHC RDW 19.7 H Neutrophils # 10.2 H Neutrophils # (Manual) Lymphocytes # (Manual) Metamyelocytes # (Man) Myelocytes # (Manual) Chloride 110 H Carbon Dioxide 19 L BUN 60 H Glucose POC Glucose (mg/dL) Calcium Alkaline Phosphatase 254 H Total Protein 5.6 L Albumin 2.7 L Lipase 2014 H Urine Protein 1+ H Urine Blood Trace H Ur Leukocyte Esterase Large H Urine WBC >182 H Urine WBC Clumps Many H Urine Bacteria Many H Crossmatch 11/11/18 11/11/18 11/12/18 16:33 21:29 04:11 WBC 12.7 H RBC 3.50 L Hgb 8.8 L Hct 30.1 L MCHC 29.3 L RDW 19.7 H Neutrophils # Neutrophils # (Manual) Lymphocytes # (Manual) Metamyelocytes # (Man) Myelocytes # (Manual) Chloride Carbon Dioxide BUN Glucose POC Glucose (mg/dL) 128 H 183 H Calcium Alkaline Phosphatase Total Protein Albumin Lipase Urine Protein Urine Blood Ur Leukocyte Esterase Urine WBC Urine WBC Clumps Urine Bacteria Crossmatch 11/12/18 11/12/18 11/12/18 04:11 07:11 11:50 WBC RBC Hgb Hct MCHC RDW Neutrophils # Neutrophils # (Manual) Lymphocytes # (Manual) Metamyelocytes # (Man) Myelocytes # (Manual) Chloride 109 H Carbon Dioxide BUN 32 H Glucose 226 H POC Glucose (mg/dL) 195 H 170 H Calcium 8.1 L Alkaline Phosphatase 237 H Total Protein 5.3 L Albumin 2.5 L Lipase 457 H Urine Protein Urine Blood Ur Leukocyte Esterase Urine WBC Urine WBC Clumps Urine Bacteria Crossmatch 11/12/18 11/12/18 11/13/18 16:47 21:13 07:31 WBC RBC Hgb Hct MCHC RDW Neutrophils # Neutrophils # (Manual) Lymphocytes # (Manual) Metamyelocytes # (Man) Myelocytes # (Manual) Chloride Carbon Dioxide BUN Glucose POC Glucose (mg/dL) 125 H 185 H 177 H Calcium Alkaline Phosphatase Total Protein Albumin Lipase Urine Protein Urine Blood Ur Leukocyte Esterase Urine WBC Urine WBC Clumps Urine Bacteria Crossmatch 11/13/18 11/13/18 11/13/18 09:22 09:22 10:37 WBC 14.1 H RBC 2.81 L Hgb 7.4 L Hct 24.3 L MCHC 30.5 L RDW 20.0 H Neutrophils # Neutrophils # (Manual) 12.90 H Lymphocytes # (Manual) 0.42 L Metamyelocytes # (Man) 0.14 H Myelocytes # (Manual) 0.14 H Chloride 110 H Carbon Dioxide BUN 40 H Glucose 134 H POC Glucose (mg/dL) 193 H Calcium Alkaline Phosphatase Total Protein Albumin Lipase Urine Protein Urine Blood Ur Leukocyte Esterase Urine WBC Urine WBC Clumps Urine Bacteria Crossmatch 11/13/18 11/13/18 10:51 11:50 WBC RBC Hgb Hct MCHC RDW Neutrophils # Neutrophils # (Manual) Lymphocytes # (Manual) Metamyelocytes # (Man) Myelocytes # (Manual) Chloride Carbon Dioxide BUN Glucose POC Glucose (mg/dL) 153 H Calcium Alkaline Phosphatase Total Protein Albumin Lipase Urine Protein Urine Blood Ur Leukocyte Esterase Urine WBC Urine WBC Clumps Urine Bacteria Crossmatch See Detail Assessment and Plan Plan: 1 acute GI bleeding as the patient has several enterocutaneous fistulas which are currently bleeding and output from the fistula is quite bloody and this is associated with some drop in hemoglobin and hemodynamic instability. Note that the patient is a recipient of a small bowel transplantation and the patient has developed complicated bowel disease, obstruction requiring multitude of surgeries and subsequent development of enterocutaneous fistula. The patient also has a Gastro cutaneous fistula and ileostomy in place. 2 recurrent pancreatitis with an acute pancreatic attack with elevated lipase and secondary abdominal pain. The patient is on TPN for nutritional support. He is also receiving IV fluids and pain management. I believe the patient is postcholecystectomy and the gallbladder was not seen on serial CAT scans done earlier. 3 hypotension secondary to blood loss and possibly GI bleeding 4 A. fib with rapid ventricular response 5. TPN for nutritional support 6 COPD 7 multivisceral organ transplantation including stomach small bowel and pancreas 8 chronic pancreatitis, requiring insertion of a pancreatic stent and the patient is currently up ectatic enzyme supplements 9 chronic immunosuppression maintain on a combination of Prograf 10 chronic adrenal insufficiency maintained on Cortef 11 previous hospitalization for GI bleed 12 gastroparesis 13 chronic renal failure 14 chronic anemia secondary to renal failure 15 previous exposure to MRSA Plan Transfer this patient to the intensive care unit. Cover the patient with broad- spectrum antibiotics including IV Merrem. Transfused with a unit of packed RBC. 2 L of bolus. Obtain cultures. Watch for any ongoing signs of bleeding. Monitor hemoglobin. TPN overnight. Continue immunosuppression for now. Stress dose hydrocortisone. I would like to transfer this patient back to [facility] for further evaluation and treatment of his enterocutaneous fistula.
[2018-11-13] MEDS ORDERED: HYDROmorphone 1 MG/ML 1 ML SYRINGE IVP STA (14:38)
[2018-11-13] MEDS ORDERED: MEROPENEM 1 GM in SODIUM CHLORIDE 0.9% 100 ML IVPB SCH (15:00)
[2018-11-13] MEDS ORDERED: DEXTROSE 5% IN WATER 100 ML with AMIODARONE 150 MG IV ONE (15:57)
[2018-11-13] MEDS ORDERED: HYDROCORTISONE SUCCINATE 100 MG/2 ML VIAL IV SCH (16:00)
[2018-11-13] MEDS ORDERED: OCTREOTIDE 500 MCG in SODIUM CHLORIDE 0.9% 250 ML IV SCH (16:00)
[2018-11-13] MEDS ORDERED: AMIODARONE 360 MG in DEXTROSE 5% IN WATER 200 ML IV ONE ×2 (16:09)
--- NOTE | 2018-11-13 16:12 | P.DS ---
Providers Date of admission: 11/11/18 08:53 Expected date of discharge: 11/13/18 Attending physician: Jessica Lopez DO Consults: 11/13/18 10:49 Consult Physician Urgent Consulting Provider: Brittany Daniels Consult Reason/Comments: GI bleed Do you want consulting provider notified?: Yes Consult Physician Urgent Consulting Provider: Dandre Willams Consult Reason/Comments: GI bleed Do you want consulting provider notified?: Yes Primary care physician: Ras Zhao [facility] Course: Discharge Diagnosis: GI bleed possibly secondary to gastric ulcers versus bleeding fistula Hypovolemic shock Internal hernia and acute pancreatitis Immunosuppression due to history of multiorgan transplant including the stomach, small bowel, and pancreas Multiple enterocutaneous fistulas Adrenal insufficiency Paroxysmal A. fib COPD without exacerbation Chronic malnutrition, TPN dependent Normocytic anemia Hyperchloremic metabolic acidosis Dehydration Asymptomatic bacteriuria, ?fistula formation Recent line placement Hospital Course: Patient is a 48-year-old male with a complex past medical history with multiple recurrent abdominal surgeries secondary to congenital defect including transplant of the pancreas, small bowel, and stomach in 2002 maintained on prograft. He presented to the ER with complaints of abdominal pain. Laboratory analysis showed an elevated lipase of 2000. CT abdomen and pelvis was consistent with his chronic known changes but did not show any acute significant. He was started on IV fluids and Dilaudid in the ER. He was admitted for further monitoring. He was continued on IVF his TPN was restarted without lipids. He was improving on 11/12. On the morning of 11/13 he had in i ncrease in pain and noted 2 additional fistulas formed. Offered transfer back to [facility] at that point in time, but patient denied. He then had an episode of vomiting up of bright red blood as well as increased bloody output from his multiple fistula sites. He was emergently transferred to the ICU and repeat blood counts were obtained. Patient's blood pressure and heart rate were stable and he was therefore taken for a stat CT abdomen and pelvis with IV contrast. This revealed internal hernia as majority of the dilated prominent follows displaced anteriorly into the upper and mid abdomen with increasing distention and prominent as well as increased wall thickening noted from prior. They recommended NG decompression. Patient refused NG tube. Patient was typed and screened. He then developed hypotension and tachycardia. There was concern for possible developing sepsis and he was started on Merrem. One unit of packed red blood cells ordered. He went into A. fib with RVR. He was given IV fluids. His heart rate improved and his blood pressure stabilized from a systolic of 60s systolic systolic of 107. He was still having increased abdominal pain as well as spitting up blood. Then after another discussion patient agreed with: [facility] for possible transfer. Case was discussed with who accepted the patient in transfer if hemodynamically stable. We also discussed starting octreotide and vasopressin gtt, which were ordered. He was paced on amio as well for A. flutter rate control. Patient remained awake, alert, and talking. He continued to request pain medications which were limited due to low blood pressures. He adamently refused nasogastric tube. Patient seen and examined at bedside. abdominal pain, nausea. Vital signs reviewed and stable. General: ill appearing, mild distress, appears at stated age Derm: warm, dry Head: atraumatic, normocephalic, symmetric Eyes: EOMI, no lid lag, anicteric sclera Mouth: no lip lesion, mucus membranes moist Cardiovascular: S1S2 tachy, no murmur, positive posterior tibial pulse bilateral, Lungs: CTA bilateral, no rhonchi, no rales , no accessory muscle use Abdominal: soft, +tender to palpation diffusely, no guarding, no appreciable organomegaly, multiple enterocutaneous fistulas covered with ostomy bag. Ext: no gross muscle atrophy, no edema, no contractures Neuro: CN II-XI grossly intact, no focal neuro deficits Psych: Alert, oriented, appropriate affect A total of 65 minutes of time were spent preparing this complex discharge summary . Patient Condition at Discharge: Serious Plan - Discharge Summary Discharge Rx Participant: No New Discharge Prescriptions: No Action Sertraline [Zoloft] 150 mg PO DAILY Ferrous Gluconate 325 mg PO BID traZODone HCL 100 mg PO HS Albuterol Sulfate [Proair Hfa] 2 puff INHALATION RT-Q6H PRN PRN Reason: Shortness Of Breath Budesonide/Formoterol Fumarate [Symbicort 160-4.5 Mcg Inhaler] 2 puff INHALATION RT-BID Methadone [Dolophine] 10 mg PO QAM clonazePAM [Klonopin ODT Wafer] 0.25 mg PO HS HYDROcodone/APAP 10-325MG [[place] 10-325] 1 tab PO Q4H PRN PRN Reason: Pain Methadone [Dolophine] 5 mg PO HS Gabapentin 1,200 mg PO TID Tacrolimus [Prograf] 2 mg PO BID QUEtiapine [SEROquel] 50 mg PO HS Sulfamethox-Tmp 800-160Mg [Bactrim DS 800-160 mg] 0.5 tab PO MOWEFR Nystatin 100,000 Unit/ml Susp [Mycostatin Oral Susp] 500,000 unit PO QID Metoprolol Tartrate [Lopressor] 12.5 mg PO BID Hydrocortisone Sodium Succ 0.4 ml IV Q8H Ergocalciferol [Vitamin D2] 50,000 unit PO MOWEFR Baclofen 5mg/Ml Liquid 10 mg PO TID Discharge Medication List Ferrous Gluconate 325 mg PO BID 09/02/13 [History] Sertraline [Zoloft] 150 mg PO DAILY 09/02/13 [History] Albuterol Sulfate [Proair Hfa] 2 puff INHALATION RT-Q6H PRN 12/19/16 [History] traZODone HCL 100 mg PO HS 12/19/16 [History] Budesonide/Formoterol Fumarate [Symbicort 160-4.5 Mcg Inhaler] 2 puff INHALATION RT-BID 05/17/17 [History] Methadone [Dolophine] 10 mg PO QAM 05/17/17 [History] clonazePAM [Klonopin ODT Wafer] 0.25 mg PO HS 12/12/17 [History] HYDROcodone/APAP 10-325MG [[place] 10-325] 1 tab PO Q4H PRN 01/10/18 [History] Methadone [Dolophine] 5 mg PO HS 01/22/18 [History] Gabapentin 1,200 mg PO TID 06/18/18 [History] Tacrolimus [Prograf] 2 mg PO BID 07/18/18 [History] Baclofen 5mg/Ml Liquid 10 mg PO TID 11/11/18 [History] Ergocalciferol [Vitamin D2] 50,000 unit PO MOWEFR 11/11/18 [History] Hydrocortisone Sodium Succ 0.4 ml IV Q8H 11/11/18 [History] Metoprolol Tartrate [Lopressor] 12.5 mg PO BID 11/11/18 [History] Nystatin 100,000 Unit/ml Susp [Mycostatin Oral Susp] 500,000 unit PO QID 11/11/18 [History] QUEtiapine [SEROquel] 50 mg PO HS 11/11/18 [History] Sulfamethox-Tmp 800-160Mg [Bactrim DS 800-160 mg] 0.5 tab PO MOWEFR 11/11/18 [History] Follow up Appointment(s)/Referral(s): Ras Zhao MD [Primary Care Provider] - 1-2 days [facility], [NON-STAFF] -
[2018-11-13 16:40] LABS: Glucose,Whole Blood 144 mg/dL (75-99)
[2018-11-13 16:52] VITALS: TEMP 97.5
[2018-11-13] MEDS: SODIUM CHLORIDE 0.9% 50 ML with VASOPRESSIN 20 UNIT IVPB SCH ×4 (17:26→20:33)
[2018-11-13 18:30] LABS: Anisocytosis Slight; HCT 23.2 % (39.0-53.0); HGB 7.1 gm/dL (13.0-17.5); Hypochromasia Marked; MCH 26.2 pg (25.0-35.0); MCHC 30.4 g/dL (31.0-37.0); MCV 86.2 fL (80.0-100.0); Mean Platelet Volume 12.6; Platelet Count 171 k/uL (150-450); Poikilocytosis Moderate; RDW 19.3 % (11.5-15.5); WBC 15.8 k/uL (3.8-10.6)
[2018-11-13 18:40] LABS: ALT 53 U/L (21-72); AST 31 U/L (17-59); African American GFR (CKD) >90 (>60 ml/min/1.73 sqM); Albumin 2.1 g/dL (3.5-5.0); Alkaline Phosphatase 208 U/L (38-126); Anion Gap 6 mmol/L; Blood Urea Nitrogen 42 mg/dL (9-20); Calcium 7.3 mg/dL (8.4-10.2); Carbon Dioxide 24 mmol/L (22-30); Chloride 112 mmol/L (98-107); Glucose 157 mg/dL (74-99); Potassium 4.3 mmol/L (3.5-5.1); Sodium 142 mmol/L (137-145); Total Bilirubin 0.4 mg/dL (0.2-1.3); Total Protein 4.4 g/dL (6.3-8.2)
[2018-11-13 18:56] LABS: Prothrombin Time 10.9 sec (9.0-12.0)
[2018-11-13] MEDS ORDERED: MVI, ADULT NO.4 WITH VIT K 10 ML, TRACE (CONC-1ML/DOSE) 1 ML in AMINO ACID 5%-D15W+LYTE... IV ONE ×3 (19:00)
[2018-11-13 19:08] LABS: Partial Thromboplastin Time 21.6 sec (22.0-30.0)
[2018-11-13 20:55] VITALS: BP 103/71; PULSE 115; RESP 18
[2018-11-13] MEDS ORDERED: AMIODARONE 300 MG in DEXTROSE 5% IN WATER 250 ML IV SCH ×2 (22:00)
[2018-11-14] MEDS ORDERED: AMINO ACID 5% IV ONE (01:30)
[2018-11-14] MEDS ORDERED: [UNRECOGNIZED DRUG - OTHER] IV ONE (01:30)
== END 2018-11-13 20:30 | disposition short-term general hospital (02) | DRG 438 ==
LOC: EC 05:07 → 3NMEDONC 08:53 → 4MS4W 12:15 → 2SICU 11-13 09:57
PROVIDERS: ADMIT Internal Medicine; ATTEND Internal Medicine
PROC: 30233N1 Transfusion of Nonautologous Red Blood Cells into Peripheral Vein, Percutaneous Approach (ICD-10-PCS; principal; 2018-11-13)
DX: T86.898 Other complications of other transplanted tissue (principal); K85.90 Acute pancreatitis without necrosis or infection, unspecified; E43 Unspecified severe protein-calorie malnutrition; R57.1 Hypovolemic shock; K25.0 Acute gastric ulcer with hemorrhage; A41.9 Sepsis, unspecified organism; K63.2 Fistula of intestine; Z94.82 Intestine transplant status; E87.2 Acidosis; E27.40 Unspecified adrenocortical insufficiency; I48.92 Unspecified atrial flutter; I95.9 Hypotension, unspecified; K31.84 Gastroparesis; N18.3 Chronic kidney disease, stage 3 (moderate); D64.9 Anemia, unspecified; K46.9 Unspecified abdominal hernia without obstruction or gangrene; F41.9 Anxiety disorder, unspecified; F32.9 Major depressive disorder, single episode, unspecified; Z93.2 Ileostomy status; E86.0 Dehydration; G47.33 Obstructive sleep apnea (adult) (pediatric); J44.9 Chronic obstructive pulmonary disease, unspecified; K21.9 Gastro-esophageal reflux disease without esophagitis; Z53.20 Procedure and treatment not carried out because of patient's decision for unspecified reasons; Z79.51 Long term (current) use of inhaled steroids; Z79.899 Other long term (current) drug therapy; Z87.891 Personal history of nicotine dependence; Z93.3 Colostomy status; Z88.6 Allergy status to analgesic agent; Z86.14 Personal history of Methicillin resistant Staphylococcus aureus infection; Z86.19 Personal history of other infectious and parasitic diseases; Z90.89 Acquired absence of other organs; Z90.49 Acquired absence of other specified parts of digestive tract; Z99.89 Dependence on other enabling machines and devices; Z87.01 Personal history of pneumonia (recurrent); Z98.890 Other specified postprocedural states; Z68.25 Body mass index [BMI] 25.0-25.9, adult
CPT/HCPCS: 36415; 74177; 80048; 80053; 80197; 81001; 82330; 83605; 83690; 83735; 84100; 84478; 85025; 85027; 85610; 85730; 86850; 86900; 86901; 86920; 94640; 96361; 96374; 96375; 96376; 99285

== ENCOUNTER 2018-11-20 10:19 | Emergency (ER) | payer MEDICARE, BC ==
[2018-11-20 10:31] VITALS: BP 92/53; PULSE 66; RESP 16; TEMP 98
--- NOTE | 2018-11-20 12:17 | ED ---
Recheck HPI - General Chief Complaint: Recheck/Abnormal Lab/Rx Stated Complaint: Clogged rowell Time Seen by Provider: 11/20/18 11:10 Source: patient, RN notes reviewed Mode of arrival: wheelchair Limitations: no limitations - History of Present Illness Initial Comments: This is a 48-year-old male with a history of pancreatitis who does get TPN infusions through a Rowell catheter who states he read report of his Rowell is clogged up. He was sent for evaluation and for medication on clogged. He denies any fevers chills nausea vomiting sweats chest pain from his breath or other symptoms. The patient states the catheter is relatively new - Related Data Home Medications Medication Instructions Recorded Confirmed Ferrous Gluconate 325 mg PO BID 09/02/13 11/20/18 Sertraline [Zoloft] 150 mg PO DAILY 09/02/13 11/20/18 Albuterol Sulfate [Proair Hfa] 2 puff INHALATION RT-Q6H PRN 12/19/16 11/20/18 traZODone HCL 100 mg PO HS 12/19/16 11/20/18 Budesonide/Formoterol Fumarate 2 puff INHALATION RT-BID 05/17/17 11/20/18 [Symbicort 160-4.5 Mcg Inhaler] Methadone [Dolophine] 10 mg PO QAM 05/17/17 11/20/18 clonazePAM [Klonopin ODT Wafer] 0.25 mg PO HS 12/12/17 11/20/18 HYDROcodone/APAP 10-325MG [[place] 1 tab PO Q4H PRN 01/10/18 11/20/18 10-325] Methadone [Dolophine] 5 mg PO HS 01/22/18 11/20/18 Gabapentin 1,200 mg PO TID 06/18/18 11/20/18 Tacrolimus [Prograf] 3 mg SL BID 07/18/18 11/20/18 Ergocalciferol [Vitamin D2] 50,000 unit PO MOWEFR 11/11/18 11/20/18 Hydrocortisone Sodium Succ 0.4 ml IV Q8H 11/11/18 11/20/18 Metoprolol Tartrate [Lopressor] 12.5 mg PO BID PRN 11/11/18 11/20/18 Nystatin 100,000 Unit/ml Susp 500,000 unit PO QID 11/11/18 11/20/18 [Mycostatin Oral Susp] QUEtiapine [SEROquel] 50 mg PO HS 11/11/18 11/20/18 Sulfamethox-Tmp 800-160Mg [Bactrim 0.5 tab PO MOWEFR 11/11/18 11/20/18 DS 800-160 mg] Baclofen [Lioresal] 10 mg PO TID 11/20/18 11/20/18 Allergies Allergy/AdvReac Type Severity Reaction Status Date / Time aspirin Allergy GI Verified 11/20/18 10:59 BLEEDING , ABDOMINAL PAIN heparin AdvReac abdominal Verified 11/20/18 10:59 pain , GI bleeding ketorolac tromethamine AdvReac migraines Verified 11/20/18 10:59 [From Toradol] morphine AdvReac Itching Verified 11/20/18 10:59 Review of Systems ROS Statement: Those systems with pertinent positive or pertinent negative responses have been documented in the HPI. ROS Other: All systems not noted in ROS Statement are negative. 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 blood clot in aortic graft History of Any Multi-Drug Resistant Organisms: C-DIFF, ESBL, MRSA Date of last positivie culture/infection: MRSA sputum 05/29/17 MDRO Source:: C-diff stool 05/11/18 colonized Past Surgical History: Bowel Resection, Cholecystectomy Additional Past Surgical History / Comment(s): Multivisceral organ transplant including bowel, doudenum,pancreas, and stomach at [facility]- follows thru [facility],spleen removed, left knee arthrotomy, EGD, colonoscopy, ERCP with insertion of a pancreatic duct stent- since removed . ileostomy in october 2017, dehised x 2, repair of fistula, second fistula appeared may 01, 2018, pt currently has ostomy bag in which fistula drained into, colonized c-diff, MRSA in sputum a year ago, as valve surgery, rowell catheter. fistulas returned after attempted repair. Past Anesthesia/Blood Transfusion Reactions: No Reported Reaction Additional Past Anesthesia/Blood Transfusion Reaction / Comment(s): STATES R/T TO MULTIPLE SX HE REQUIRES A LOT OF MEDICATION for anesthesia. He has had multiple blood transfusions without reaction. Past Psychological History: Anxiety, Depression Smoking Status: Former smoker Past Alcohol Use History: None Reported Past Drug Use History: None Reported - Past Family History Mother History Unknown: Yes Additional Family Medical History / Comment(s): pt is adopted, does not know any hx Father History Unknown: Yes Additional Family Medical History / Comment(s): Pt is adopted and knows no history. General Exam - General Exam Comments Initial Comments: This is a well-developed well-nourished awake alert oriented times 3 male Limitations: no limitations General appearance: alert, in no apparent distress Head exam: Present: atraumatic, normocephalic, normal inspection Eye exam: Present: normal appearance, PERRL, EOMI. Absent: scleral icterus, conjunctival injection, periorbital swelling ENT exam: Present: normal exam, mucous membranes moist Neck exam: Present: normal inspection. Absent: tenderness, meningismus, lymphadenopathy Respiratory exam: Present: normal lung sounds bilaterally. Absent: respiratory distress, wheezes, rales, rhonchi, stridor Cardiovascular Exam: Present: regular rate, normal rhythm, normal heart sounds. Absent: systolic murmur, diastolic murmur, rubs, gallop, clicks GI/Abdominal exam: Present: soft, normal bowel sounds. Absent: distended, tenderness, guarding, rebound, rigid Extremities exam: Present: normal inspection, full ROM, normal capillary refill. Absent: tenderness, pedal edema, joint swelling, calf tenderness Back exam: Present: full ROM Neurological exam: Present: alert, oriented X3, CN II-XII intact Psychiatric exam: Present: normal affect, normal mood Skin exam: Present: warm, dry, intact, normal color. Absent: rash Course Vital Signs 08/01/19 10:28 Temperature 98.0 F Pulse Rate 66 Respiratory 16 Rate Blood Pressure 92/53 O2 Sat by Pulse 97 Oximetry Procedures - Procedures Initial comment: I was able to flush the catheter with saline using the TB syringe. He did flush freely. This is followed by 10 mL flush with saline. Nursing staff later instilled heparin. Patient tolerated this well Medical Decision Making - Medical Decision Making No further workup is indicated this time patient will be discharged with follow- up when necessary Disposition Clinical Impression: Rowell catheter dysfunction Disposition: HOME SELF-CARE Condition: Good Instructions (If sedation given, give patient instructions): Tunneled Central Lines in Adult (ED) Is patient prescribed a controlled substance at d/c from ED?: No Referrals: Ras Zhao MD [Primary Care Provider] - 1-2 days
== END 2018-11-20 12:23 | disposition home or self-care (01) ==
LOC: EC 10:19
DX: T82.49XA Other complication of vascular dialysis catheter, initial encounter (principal); K85.90 Acute pancreatitis without necrosis or infection, unspecified; F41.9 Anxiety disorder, unspecified; F32.9 Major depressive disorder, single episode, unspecified; J44.9 Chronic obstructive pulmonary disease, unspecified; G89.29 Other chronic pain; M54.9 Dorsalgia, unspecified; N18.3 Chronic kidney disease, stage 3 (moderate); G47.33 Obstructive sleep apnea (adult) (pediatric); Z79.51 Long term (current) use of inhaled steroids; Z79.891 Long term (current) use of opiate analgesic; Z79.899 Other long term (current) drug therapy; Z88.6 Allergy status to analgesic agent; Z88.5 Allergy status to narcotic agent; Z88.8 Allergy status to other drugs, medicaments and biological substances; Z87.891 Personal history of nicotine dependence; Z99.89 Dependence on other enabling machines and devices; Z94.82 Intestine transplant status; Z94.83 Pancreas transplant status; Z94.89 Other transplanted organ and tissue status; Z86.718 Personal history of other venous thrombosis and embolism; Z90.49 Acquired absence of other specified parts of digestive tract; Z98.890 Other specified postprocedural states; Z86.14 Personal history of Methicillin resistant Staphylococcus aureus infection
CPT/HCPCS: 99283; 96374; J1642

== ENCOUNTER 2018-11-20 18:26 | Inpatient (IN) | payer MEDICARE, BC ==
[2018-11-20] MEDS ORDERED: SODIUM CHLORIDE 0.9% 500 ML 500 ML IV STA (18:41)
[2018-11-20] MEDS ORDERED: HYDROmorphone 1 MG/ML 1 ML SYRINGE IVP STA ×2 (18:41→19:49)
[2018-11-20] MEDS ORDERED: ONDANSETRON 4 MG/2 ML VIAL IVP STA (18:41)
--- NOTE | 2018-11-20 18:47 | ED ---
Abdominal Pain HPI - General Chief Complaint: Abdominal Pain Stated Complaint: Abd.pain Time Seen by Provider: 11/20/18 18:33 Source: patient Mode of arrival: wheelchair Limitations: no limitations - History of Present Illness Initial Comments: Patient is a 48-year-old male with history of chronic pancreatitis presents emergency to the department with a chief complaint of a pancreatitis flare up. Patient reports occasional flareups of his pancreatitis symptoms for which he comes to the emergency department and gets the same treatment. Patient reports epigastric pain that is associated with nausea but no vomiting. Patient has a Varghese catheter and a PEG tube. Patient denies fever, night sweats or chills. Patient reports the pain is better when standing is slightly position. He reports his systolic blood pressure in 90s is his baseline. Patient denies chest pain, chest tightness, shortness of breath or headaches. Patient is marcie perdue at the [facility]. Patient has no other complaints. - Related Data Home Medications Medication Instructions Recorded Confirmed Ferrous Gluconate 325 mg PO BID 09/02/13 11/20/18 Sertraline [Zoloft] 150 mg PO DAILY 09/02/13 11/20/18 Albuterol Sulfate [Proair Hfa] 2 puff INHALATION RT-Q6H PRN 12/19/16 11/20/18 traZODone HCL 100 mg PO HS 12/19/16 11/20/18 Budesonide/Formoterol Fumarate 2 puff INHALATION RT-BID 05/17/17 11/20/18 [Symbicort 160-4.5 Mcg Inhaler] Methadone [Dolophine] 10 mg PO QAM 05/17/17 11/20/18 clonazePAM [Klonopin ODT Wafer] 0.25 mg PO HS 12/12/17 11/20/18 HYDROcodone/APAP 10-325MG [[place] 1 tab PO Q4H PRN 01/10/18 11/20/18 10-325] Methadone [Dolophine] 5 mg PO HS 01/22/18 11/20/18 Gabapentin 1,200 mg PO TID 06/18/18 11/20/18 Tacrolimus [Prograf] 3 mg SL BID 07/18/18 11/20/18 Ergocalciferol [Vitamin D2] 50,000 unit PO MOWEFR 11/11/18 11/20/18 Hydrocortisone Sodium Succ 0.4 ml IV Q8H 11/11/18 11/20/18 Metoprolol Tartrate [Lopressor] 12.5 mg PO BID PRN 11/11/18 11/20/18 Nystatin 100,000 Unit/ml Susp 500,000 unit PO QID 11/11/18 11/20/18 [Mycostatin Oral Susp] QUEtiapine [SEROquel] 50 mg PO HS 11/11/18 11/20/18 Sulfamethox-Tmp 800-160Mg [Bactrim 0.5 tab PO MOWEFR 11/11/18 11/20/18 DS 800-160 mg] Baclofen [Lioresal] 10 mg PO TID 11/20/18 11/20/18 Melatonin 3 mg PO HS 11/20/18 11/20/18 Vancomycin 1.25g/250ml 250 ml IV Q12H 11/20/18 11/20/18 Allergies Allergy/AdvReac Type Severity Reaction Status Date / Time morphine Allergy Itching Verified 11/20/18 19:15 aspirin AdvReac GI Verified 11/20/18 19:15 BLEEDING , ABDOMINAL PAIN heparin AdvReac abdominal Verified 11/20/18 19:15 pain , GI bleeding ketorolac tromethamine AdvReac migraines Verified 11/20/18 19:15 [From Toradol] Review of Systems ROS Statement: Those systems with pertinent positive or pertinent negative responses have been documented in the HPI. ROS Other: All systems not noted in ROS Statement are negative. 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 blood clot in aortic graft History of Any Multi-Drug Resistant Organisms: C-DIFF, ESBL, MRSA Date of last positivie culture/infection: MRSA sputum 05/29/17 MDRO Source:: C-diff stool 05/11/18 colonized Past Surgical History: Bowel Resection, Cholecystectomy Additional Past Surgical History / Comment(s): Multivisceral organ transplant including bowel, doudenum,pancreas, and stomach at [facility]- follows thru [facility],spleen removed, left knee arthrotomy, EGD, colonoscopy, ERCP with insertion of a pancreatic duct stent- since removed . ileostomy in october 2017, dehised x 2, repair of fistula, second fistula appeared may 01, 2018, pt currently has ostomy bag in which fistula drained into, colonized c-diff, MRSA in sputum a year ago, as infant valve surgery, varghese catheter. fistulas returned after attempted repair. Past Anesthesia/Blood Transfusion Reactions: No Reported Reaction Additional Past Anesthesia/Blood Transfusion Reaction / Comment(s): STATES R/T TO MULTIPLE SX HE REQUIRES A LOT OF MEDICATION for anesthesia. He has had multiple blood transfusions without reaction. Past Psychological History: Anxiety, Depression Smoking Status: Former smoker Past Alcohol Use History: None Reported Past Drug Use History: None Reported - Past Family History Mother History Unknown: Yes Additional Family Medical History / Comment(s): pt is adopted, does not know any hx Father History Unknown: Yes Additional Family Medical History / Comment(s): Pt is adopted and knows no history. General Exam Limitations: no limitations General appearance: alert, in no apparent distress Head exam: Present: atraumatic, normocephalic, normal inspection Eye exam: Present: normal appearance, PERRL, EOMI. Absent: scleral icterus, conjunctival injection Pupils: Present: normal accommodation ENT exam: Present: normal exam, normal oropharynx, mucous membranes moist, TM's normal bilaterally, normal external ear exam Neck exam: Present: normal inspection, full ROM Respiratory exam: Present: normal lung sounds bilaterally Cardiovascular Exam: Present: regular rate, normal rhythm, normal heart sounds GI/Abdominal exam: Present: soft, tenderness (Epigastric), normal bowel sounds, other (PEG tube). Absent: guarding, rebound Extremities exam: Present: normal inspection, full ROM Back exam: Present: normal inspection, full ROM Neurological exam: Present: alert, oriented X3 Psychiatric exam: Present: normal affect, normal mood Skin exam: Present: warm, intact, normal color Course Vital Signs 11/20/18 11/20/18 18:28 19:37 Temperature 98.1 F 98.5 F Pulse Rate 79 76 Respiratory 16 18 Rate Blood Pressure 91/56 94/56 O2 Sat by Pulse 98 98 Oximetry Medical Decision Making - Medical Decision Making Patient is a 48-year-old male with history of chronic pancreatitis presenting to emergency Department with a chief complaint of pancreatitis flareup. CBC is showing leukocytosis. Lipase is 900 which would be considered on the border for 3 times the upper limit of normal For pancreatitis. Patient is afebrile and hypotensive but states that is his baseline. Dr. Swanson spoke with the patient and is going to admit him for further management. Case was discussed with Dr. Mosquera was understanding and agreeable. - Lab Data Result diagrams: 11/20/18 18:00 11/20/18 18:00 Lab Results 11/20/18 11/20/18 11/20/18 Range/Units 18:00 18:00 18:00 WBC 15.9 H (3.8-10.6) k/uL RBC 3.52 L (4.30-5.90) m/uL Hgb 9.3 L (13.0-17.5) gm/dL Hct 30.0 L (39.0-53.0) % MCV 85.3 (80.0-100.0) fL MCH 26.4 (25.0-35.0) pg MCHC 31.0 (31.0-37.0) g/dL RDW 17.2 H (11.5-15.5) % Plt Count 251 (150-450) k/uL Hypochromasia Moderate Poikilocytosis Moderate Anisocytosis Slight Sodium 139 (137-145) mmol/L Potassium 3.2 L (3.5-5.1) mmol/L Chloride 105 (98-107) mmol/L Carbon Dioxide 26 (22-30) mmol/L Anion Gap 8 mmol/L BUN 48 H (9-20) mg/dL Creatinine 0.96 (0.66-1.25) mg/dL Est GFR (CKD-EPI)AfAm >90 (>60 ml/min/1.73 sqM) Est GFR (CKD-EPI)NonAf >90 (>60 ml/min/1.73 sqM) Glucose 157 H (74-99) mg/dL Calcium 8.2 L (8.4-10.2) mg/dL Total Bilirubin 0.4 (0.2-1.3) mg/dL AST 19 (17-59) U/L ALT 25 (21-72) U/L Alkaline Phosphatase 190 H (38-126) U/L Total Protein 4.9 L (6.3-8.2) g/dL Albumin 2.5 L (3.5-5.0) g/dL Amylase 262 H (30-110) U/L Lipase 900 H (23-300) U/L Disposition Clinical Impression: Pancreatitis Disposition: ADMITTED IP TO THIS HOSP Condition: Stable Instructions (If sedation given, give patient instructions): Pancreatitis (ED) Additional Instructions: Patient will be admitted for further management. Is patient prescribed a controlled substance at d/c from ED?: No Referrals: Ras Zhao MD [Primary Care Provider] - 1-2 days Time of Disposition: 20:28
[2018-11-20 18:57] LABS: Anisocytosis Slight; HGB 9.3 gm/dL (13.0-17.5); Hypochromasia Moderate; MCH 26.4 pg (25.0-35.0); MCV 85.3 fL (80.0-100.0); Mean Platelet Volume 12.3; Platelet Count 251 k/uL (150-450); Poikilocytosis Moderate; RBC 3.52 m/uL (4.30-5.90); RDW 17.2 % (11.5-15.5); WBC 15.9 k/uL (3.8-10.6)
[2018-11-20 19:10] LABS: ALT 25 U/L (21-72); AST 19 U/L (17-59); African American GFR (CKD) >90 (>60 ml/min/1.73 sqM); Albumin 2.5 g/dL (3.5-5.0); Alkaline Phosphatase 190 U/L (38-126); Anion Gap 8 mmol/L; Blood Urea Nitrogen 48 mg/dL (9-20); Calcium 8.2 mg/dL (8.4-10.2); Carbon Dioxide 26 mmol/L (22-30); Chloride 105 mmol/L (98-107); Glucose 157 mg/dL (74-99); Potassium 3.2 mmol/L (3.5-5.1); Sodium 139 mmol/L (137-145); Total Bilirubin 0.4 mg/dL (0.2-1.3); Total Protein 4.9 g/dL (6.3-8.2)
[2018-11-20 19:25] LABS: Amylase 262 U/L (30-110)
[2018-11-20] MEDS ORDERED: HYDROmorphone 1 MG/ML 1 ML SYRINGE IVP PRN (20:28)
[2018-11-20] MEDS ORDERED: NALOXONE 0.4 MG/ML 1 ML VIAL IV PRN (20:28)
[2018-11-20] MEDS ORDERED: ONDANSETRON 4 MG/2 ML VIAL IVP PRN (20:28)
[2018-11-20] MEDS: SODIUM CHLORIDE 0.9% 1,000 ML IV SCH (20:39)
[2018-11-20] MEDS ORDERED: METOPROLOL TARTRATE 25 MG TAB PO PRN (21:43)
[2018-11-20] MEDS ORDERED: VANCOMYCIN 1.25 GM/250 ML IV SCH (21:45)
[2018-11-20] MEDS: BACLOFEN 10 MG TAB PO SCH (23:04)
[2018-11-20] MEDS: MELATONIN 3 MG TABLET PO SCH (23:04)
[2018-11-20] MEDS: traZODone HCL 100 MG TAB PO SCH (23:04)
[2018-11-20] MEDS: GABAPENTIN 400 MG CAP PO SCH (23:16)
[2018-11-20] MEDS: HYDROCORTISONE SUCCINATE 100 MG/2 ML VIAL IV SCH (23:24)
[2018-11-20] MEDS: QUEtiapine 50 MG TAB PO SCH (23:53)
[2018-11-20] MEDS: TACROLIMUS 1 MG CAP PO SCH (23:53)
[2018-11-21] MEDS: clonazePAM 0.5 MG TAB PO SCH ×2 (00:19→20:14)
[2018-11-21] MEDS: HYDROmorphone 1 MG/ML 1 ML SYRINGE IVP PRN ×8 (01:08→23:15)
[2018-11-21] MEDS: NYSTATIN 100,000 UNIT/ML SUSP 500,000 UNIT/5 ML CUP PO SCH ×5 (02:23→22:07)
[2018-11-21] MEDS: VANCOMYCIN 1,250 MG in SODIUM CHLORIDE 0.9% 250 ML IVPB SCH ×2 (04:07→17:06)
[2018-11-21] MEDS: HYDROCORTISONE SUCCINATE 100 MG/2 ML VIAL IV SCH ×3 (06:04→22:07)
[2018-11-21 07:37] LABS: African American GFR (CKD) >90 (>60 ml/min/1.73 sqM); Anion Gap 5 mmol/L; Blood Urea Nitrogen 33 mg/dL (9-20); Calcium 7.7 mg/dL (8.4-10.2); Carbon Dioxide 30 mmol/L (22-30); Chloride 107 mmol/L (98-107); Glucose 158 mg/dL (74-99); Potassium 4.1 mmol/L (3.5-5.1); Sodium 142 mmol/L (137-145)
[2018-11-21 07:40] LABS: Anisocytosis Slight; Basophils % (A) 0 %; Eosinophils # (A) 0.1 k/uL (0-0.7); Eosinophils % (A) 1 %; HCT 30.2 % (39.0-53.0); HGB 9.3 gm/dL (13.0-17.5); Hypochromasia Marked; Lymphocytes # (A) 1.1 k/uL (1.0-4.8); Lymphocytes % (A) 5 %; MCH 27.3 pg (25.0-35.0); MCHC 30.7 g/dL (31.0-37.0); MCV 88.9 fL (80.0-100.0); Mean Platelet Volume 12.3; Monocytes % (A) 5 %; Neutrophils # (A) 17.4 k/uL (1.3-7.7); Neutrophils % (A) 87 %; Platelet Count 295 k/uL (150-450); Poikilocytosis Moderate; RDW 17.6 % (11.5-15.5); WBC 19.9 k/uL (3.8-10.6)
[2018-11-21] MEDS: SYMBICORT 160-4.5 MCG INHALER INHALATION SCH ×2 (09:21→21:46)
[2018-11-21 10:37] LABS: RBC Fragments Present
[2018-11-21 10:38] LABS: Polychromasia Present; Spherocytes Present
[2018-11-21 10:39] LABS: Large Platelets Present
[2018-11-21] MEDS: GABAPENTIN 400 MG CAP PO SCH ×3 (10:52→22:07)
[2018-11-21] MEDS: TACROLIMUS 1 MG CAP PO SCH ×2 (10:53→20:14)
[2018-11-21] MEDS: ERGOCALCIFEROL 50,000 UNIT CAP PO SCH (10:53)
[2018-11-21] MEDS: SERTRALINE 100 MG TAB PO SCH (10:53)
[2018-11-21] MEDS: SULFAMETHOX-TMP 800-160MG 1 EACH TAB PO SCH (10:53)
[2018-11-21] MEDS: BACLOFEN 10 MG TAB PO SCH ×3 (10:54→22:07)
[2018-11-21] MEDS: FERROUS GLUCONATE 325 MG PO SCH ×2 (13:34→21:03)
[2018-11-21 16:24] LABS: Ionized Calcium 4.9 mg/dL (4.5-5.3)
[2018-11-21 16:28] LABS: Albumin 2.4 g/dL (3.5-5.0); Magnesium 1.7 mg/dL (1.6-2.3); Phosphorus 3.2 mg/dL (2.5-4.5)
--- NOTE | 2018-11-21 17:10 | P.HPIM ---
History of Present Illness H&P Date: 11/20/18 Chief Complaint: Abdominal pain History of presenting complaint: This is a 48-year-old patient of Dr. Ras Zhao. Patient rather extensive complicated medical history. Patient had a multivisceral transplant in [place] including a mesenteric vein graft followed by presenting graft thrombosis and subsequent gastroparesis. Patient had been on anticoagulation. 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 The patient has gotten a little insufficiency, chronic anemia and for organ transplant in 2002 including small bowel, pancreas, duodenum and stomach in [place]. Patient also had valvular cardiac surgery done. Patient also had bowel does high since and abdomen had to be opened up with the same. Patient also developed multiple abdominal fistulas and food was coming out of the same. Patient was taken to [facility]. Patient's had multiple surgeries for the same. Including no having an ileostomy bag. Patient does get repeated attacks of pancreatitis.. Patient was in the hospital and discharge order week ago when his present with GI bleed. Initially patient did not want to be transferred to [facility] but then had to be transferred because he became unstable. Now yet again patient presents with increasing abdominal pain. He does get TPN and lipids throughout [place]. Patient is here with his and his mother. Refuses to get transferred to [facility]. Was to get treated here. Un derstanding well the surgeon said cannot do any surgical intervention on him. Patient also stated that he is supposed of organ transplant that is including his duodenum small bowel yet again. Had some nausea. No fever no chills. Being admitted for the same. 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 Also descending eccentric vein graft thrombosis, gastritis, gastroparesis, adrenal insufficiency, chronic anemia, left knee surgical repair, and heart surgery for eval. Patient has multiple abdominal fistulas. Social history: Lives with significant other. Smoked for many years. Not smoking anymore. Quit drinking alcohol in 2015 Family history: Patient is adopted Physical examination: VITAL SIGNS: 98.1, 69, 16, 91 x 56, 98% on room air GENERAL: BMI 25, laying in bed, tired appearing. EYES: Pupils equal. Conjunctiva palel. HEENT: External appearance of nose and ears normal, oral cavity dry. NECK: JVD not raised; masses not palpable. HEART: First and second heart sounds are normal; no edema. LUNGS: Respiratory rate increased, decreased breath sounds. ABDOMEN: Multiple abdominal wall fistulas with ostomy bag.. PSYCH: Alert and oriented x3; mood and affect anxiousl. NEUROLOGICAL: Cranial nerves grossly intact; no facial asymmetry, power and sensation grossly intact. LYMPHATICS: No lymph nodes palpable in the axilla and neck Investigations: White count 15.9 hemoglobin 9.3 platelets 251 Amylase 262 lipase 900 Assessment: Acute pancreatitis, POA -COPD in an ex-smoker -Fall been transplant in 2002 including the small bowel, pancreas, duodenum and stomach done at the [facility] -Multiple abdominal fistulas with ostomy bag being followed at [facility] -GERD -Chronic gastroparesis -Chronic venous intake vein thrombosis -Immunosuppressed age -Chronic kidney disease stage III from nephrosclerosis -Ileostomy Plan: Care was discussed with the patient's significant other the mother. She does not want to go back to [place] taken the present time will understanding that it could be more complications and his delicate condition and extensive and mild medical history. Patient was made nothing by mouth. TPN and lipids were held temporarily. Keep the patient nothing by mouth. IV pain medication to be given. In the meantime methadone will be held. Follow labs. Prognosis guarded. 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 and the patient ultimately had multi-organ transplantation including the stomach, small bowel, duodenum and pancreas 2002, post operative complications including 2 dehisciences and developed fistula twice-has ileostomy and an abdominal wound drainage bag, recurrent pancreatitis, history of adrenal insufficiency maintained on Cortef, immunosuppressed, chronic mesenteric vein thrombosis, 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 blood clot in aortic graft History of Any Multi-Drug Resistant Organisms: C-DIFF, ESBL, MRSA Date of last positivie culture/infection: MRSA sputum 05/29/17 MDRO Source:: C-diff stool 05/11/18 colonized Past Surgical History: Bowel Resection, Cholecystectomy Additional Past Surgical History / Comment(s): Multivisceral organ transplant including bowel, doudenum,pancreas, and stomach at [facility]- follows thru [facility],spleen removed, left knee arthrotomy, EGD, colonoscopy, ERCP with insertion of a pancreatic duct stent- since removed . ileostomy in october 2017, dehised x 2, repair of fistula, second fistula appeared may 01, 2018, pt currently has ostomy bag in which fistula drained into, colonized c-diff, MRSA in sputum a year ago, as infant valve surgery, [place] catheter. fistulas returned after attempted repair. Past Anesthesia/Blood Transfusion Reactions: No Reported Reaction Additional Past Anesthesia/Blood Transfusion Reaction / Comment(s): STATES R/T TO MULTIPLE SX HE REQUIRES A LOT OF MEDICATION for anesthesia. He has had multiple blood transfusions without reaction. Past Psychological History: Anxiety, Depression Additional Psychological History / Comment(s): lives in the family home with his significant other and 2 dogs. Medically disabled. No experience. No extensive travel. Receives his medical care currently at the [facility] Smoking Status: Former smoker Past Alcohol Use History: None Reported Additional Past Alcohol Use History / Comment(s): Started smoking about 1982(off and on) currently only a few ciggarettes a day Past Drug Use History: None Reported - Past Family History Mother History Unknown: Yes Additional Family Medical History / Comment(s): pt is adopted, does not know any hx Father History Unknown: Yes Additional Family Medical History / Comment(s): Pt is adopted and knows no history. Medications and Allergies Home Medications Medication Instructions Recorded Confirmed Type Ferrous Gluconate 325 mg PO BID 09/02/13 11/20/18 History Sertraline [Zoloft] 150 mg PO DAILY 09/02/13 11/20/18 History Albuterol Sulfate [Proair Hfa] 2 puff INHALATION RT-Q6H PRN 12/19/16 11/20/18 History traZODone HCL 100 mg PO HS 12/19/16 11/20/18 History Budesonide/Formoterol Fumarate 2 puff INHALATION RT-BID 05/17/17 11/20/18 History [Symbicort 160-4.5 Mcg Inhaler] Methadone [Dolophine] 10 mg PO QAM 05/17/17 11/20/18 History clonazePAM [Klonopin ODT Wafer] 0.25 mg PO HS 12/12/17 11/20/18 History HYDROcodone/APAP 10-325MG [[place] 1 tab PO Q4H PRN 01/10/18 11/20/18 History 10-325] Methadone [Dolophine] 5 mg PO HS 01/22/18 11/20/18 History Gabapentin 1,200 mg PO TID 06/18/18 11/20/18 History Tacrolimus [Prograf] 3 mg SL BID 07/18/18 11/20/18 History Ergocalciferol [Vitamin D2] 50,000 unit PO MOWEFR 11/11/18 11/20/18 History Hydrocortisone Sodium Succ 0.4 ml IV Q8H 11/11/18 11/20/18 History Metoprolol Tartrate [Lopressor] 12.5 mg PO BID PRN 11/11/18 11/20/18 History Nystatin 100,000 Unit/ml Susp 500,000 unit PO QID 11/11/18 11/20/18 History [Mycostatin Oral Susp] QUEtiapine [SEROquel] 50 mg PO HS 11/11/18 11/20/18 History Sulfamethox-Tmp 800-160Mg [Bactrim 0.5 tab PO MOWEFR 11/11/18 11/20/18 History DS 800-160 mg] Baclofen [Lioresal] 10 mg PO TID 11/20/18 11/20/18 History Melatonin 3 mg PO HS 11/20/18 11/20/18 History Vancomycin 1.25g/250ml 250 ml IV Q12H 11/20/18 11/20/18 History Allergies Allergy/AdvReac Type Severity Reaction Status Date / Time morphine Allergy Itching Verified 11/20/18 19:15 aspirin AdvReac GI Verified 11/20/18 19:15 BLEEDING , ABDOMINAL PAIN heparin AdvReac abdominal Verified 11/20/18 19:15 pain , GI bleeding ketorolac tromethamine AdvReac migraines Verified 11/20/18 19:15 [From Toradol] Physical Exam Vitals: Vital Signs Temp Pulse Pulse Resp BP BP Pulse Ox 11/21/18 08:25 91 18 11/21/18 07:00 97.7 F 91 18 101/65 99 11/21/18 02:26 98.0 F 100 20 110/71 93 L 11/20/18 22:45 98.4 F 96 18 91/57 99 11/20/18 22:01 98.5 F 96 18 103/50 96 11/20/18 21:56 98.6 F 96 18 103/50 96 11/20/18 20:40 98.5 F 95 103/52 96 11/20/18 19:37 98.5 F 76 18 94/56 98 11/20/18 18:28 98.1 F 79 16 91/56 98 Intake and Output 11/20/18 11/21/18 11/21/18 22:59 06:59 14:59 Intake Total 0 0 Output Total 5012 226 4396 Balance -1400 -920 -1120 Intake: Oral 0 0 Output: Urine 400 120 320 Stool 1000 800 800 Other: Voiding Method Urinal Weight 88.451 kg Results CBC & Chem 7: 11/21/18 06:50 11/21/18 06:50 Labs: Abnormal Lab Results - Last 24 Hours (Table) 11/20/18 11/20/18 11/20/18 Range/Units 18:00 18:00 18:00 WBC 15.9 H (3.8-10.6) k/uL RBC 3.52 L (4.30-5.90) m/uL Hgb 9.3 L (13.0-17.5) gm/dL Hct 30.0 L (39.0-53.0) % MCHC (31.0-37.0) g/dL RDW 17.2 H (11.5-15.5) % Potassium 3.2 L (3.5-5.1) mmol/L BUN 48 H (9-20) mg/dL Glucose 157 H (74-99) mg/dL Calcium 8.2 L (8.4-10.2) mg/dL Alkaline Phosphatase 190 H (38-126) U/L Total Protein 4.9 L (6.3-8.2) g/dL Albumin 2.5 L (3.5-5.0) g/dL Amylase 262 H (30-110) U/L Lipase 900 H (23-300) U/L 11/21/18 11/21/18 Range/Units 06:50 06:50 WBC 19.9 H (3.8-10.6) k/uL RBC 3.40 L (4.30-5.90) m/uL Hgb 9.3 L (13.0-17.5) gm/dL Hct 30.2 L (39.0-53.0) % MCHC 30.7 L (31.0-37.0) g/dL RDW 17.6 H (11.5-15.5) % Potassium (3.5-5.1) mmol/L BUN 33 H (9-20) mg/dL Glucose 158 H (74-99) mg/dL Calcium 7.7 L (8.4-10.2) mg/dL Alkaline Phosphatase (38-126) U/L Total Protein (6.3-8.2) g/dL Albumin (3.5-5.0) g/dL Amylase (30-110) U/L Lipase 511 H (23-300) U/L
--- NOTE | 2018-11-21 17:14 | P.PN ---
Progress Note - Text Progress Note Date: 11/21/18 Chief Complaint: Abdominal pain Interval history: This is a 48-year-old patient of Dr. Ras Zhao. Patient rather extensive complicated medical history. Patient had a multivisceral transplant in [place] including a mesenteric vein graft followed by presenting graft thrombosis and subsequent gastroparesis. Patient had been on anticoagulation. 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 The patient has gotten a little insufficiency, chronic anemia and for organ transplant in 2002 including small bowel, pancreas, duodenum and stomach in [place]. Patient also had valvular cardiac surgery done. Patient also had bowel does high since and abdomen had to be opened up with the same. Patient also developed multiple abdominal fistulas and food was coming out of the same. Patient was taken to [facility]. Patient's had multiple surgeries for the same. Including no having an ileostomy bag. Patient does get repeated attacks of pancreatitis.. Patient was in the hospital and discharge order week ago when his present with GI bleed. Initially patient did not want to be transferred to [facility] but then had to be transferred because he became unstable. Now yet again patient presents with increasing abdominal pain. He does get TPN and lipids throughout [place]. Patient is here with his and his mother. Refuses to get transferred to [facility]. Was to get treated here. Understanding well the surgeon said cannot do any surgical intervention on him. Patient also stated that he is supposed of organ transplant that is including his duodenum small bowel yet again. Had some nausea. No fever no chills. Being admitted for the same. Admitted with acute pancreatitis Today-laying in bed. Feels a bit better. Has been nothing by mouth. Requesting food. Getting IV pain medications. Ostomy is a working. Active Medications Baclofen (Lioresal) 10 mg PO TID [facility] Last Admin: 11/21/18 16:57 Dose: 10 mg Documented by: Budesonide/Formoterol Fumarate (Symbicort 160-4.5 Mcg Inhaler) 2 puff INHALATION RT-BID [facility] Last Admin: 11/21/18 09:21 Dose: 2 puff Documented by: Clonazepam (Klonopin) 0.25 mg PO HS [facility] Last Admin: 11/21/18 00:19 Dose: 0.25 mg Documented by: Ergocalciferol (Vitamin D2) 50,000 unit PO MoWeFr@0900 [facility] Last Admin: 11/21/18 10:53 Dose: 50,000 unit Documented by: Gabapentin (Neurontin) 1,200 mg PO TID [facility] Last Admin: 11/21/18 16:57 Dose: 1,200 mg Documented by: Hydrocortisone Sodium Succinate (Solu-Cortef) 20 mg IV Q8H [facility] Last Admin: 11/21/18 13:50 Dose: 20 mg Documented by: Hydromorphone HCl (Dilaudid) 2 mg IVP Q3HR PRN PRN Reason: Pain Last Admin: 11/21/18 17:06 Dose: 2 mg Documented by: Sodium Chloride (Saline 0.9%) 1,000 mls @ 75 mls/hr IV .[id number] [facility] Last Admin: 11/20/18 20:39 Dose: 75 mls/hr Documented by: Vancomycin HCl 1,250 mg/ (Sodium Chloride) 250 mls @ 125 mls/hr IVPB Q12H [facility] Last Admin: 11/21/18 17:06 Dose: 125 mls/hr Documented by: Parenteral Vitamin Supplement 10 ml/ Chromium/Copper/Manganese/Seleni/Zn 1 ml/Amino Ac/Electrol/Dextrose/Calcium 1,011 mls @ 0 mls/hr IV .Q0M ONE; Protocol Stop: 11/21/18 19:01 Amino Ac/Electrol/Dextrose/Calcium (Clinimix E 5%-D15% Solution) 1,000 mls @ 0 mls/hr IV .Q0M ONE; Protocol Stop: 11/22/18 01:31 Melatonin (Melatonin) 3 mg PO HS [facility] Last Admin: 11/20/18 23:04 Dose: 3 mg Documented by: Metoprolol Tartrate (Lopressor) 12.5 mg PO BID PRN PRN Reason: Blood Pressure - High Miscellaneous Information (Vancomycin Trough Due) 1 each MISCELLANE ONCE ONE Stop: 11/22/18 15:01 Naloxone HCl (Narcan) 0.2 mg IV Q2M PRN PRN Reason: Opioid Reversal Ferrous Gluconate [ Ferrous Gluconate] 325 Mg 325 mg PO BID [facility] Last Admin: 11/21/18 13:34 Dose: Not Given Documented by: Nystatin (Mycostatin Oral Susp) 500,000 unit PO QID [facility] Last Admin: 11/21/18 17:07 Dose: 500,000 unit Documented by: Ondansetron HCl (Zofran) 4 mg IVP Q8HR PRN PRN Reason: Nausea And Vomiting Quetiapine Fumarate (Seroquel) 50 mg PO [facility] Last Admin: 11/20/18 23:53 Dose: 50 mg Documented by: Sertraline HCl (Zoloft) 150 mg PO DAILY [facility] Last Admin: 11/21/18 10:53 Dose: 150 mg Documented by: Tacrolimus (Prograf) 3 mg PO BID [facility] Last Admin: 11/21/18 10:53 Dose: 3 mg Documented by: Trazodone HCl (Desyrel) 100 mg PO [facility] Last Admin: 11/20/18 23:04 Dose: 100 mg Documented by: Trimethoprim/Sulfamethoxazole (Bactrim Ds) 0.5 each PO MoWeFr@0900 [facility] Last Admin: 11/21/18 10:53 Dose: 0.5 each Documented by: Physical examination: VITAL SIGNS: 97.7, 91, 18, 101/65, 99% room air GENERAL: Laying in bed, less tired appearing. EYES: Pupils equal. Conjunctiva pale. HEENT: External appearance of nose and ears normal, oral cavity dry. NECK: JVD not raised; masses not palpable. HEART: First and second heart sounds are normal; no edema. LUNGS: Respiratory rate increased, decreased breath sounds. ABDOMEN: Multiple abdominal wall fistulas with ostomy bag., Ileostomy bag. PSYCH: Alert and oriented x3; mood and affect anxiousl. NEUROLOGICAL: Cranial nerves grossly intact; no facial asymmetry, power and sensation grossly intact. LYMPHATICS: No lymph nodes palpable in the axilla and neck Investigations: White count 19.9 hemoglobin 98.3 platelets 295 Potassium 4.1 creatinine 0.97 Lipase 511 Assessment: Acute pancreatitis, slow to respond POA -COPD in an ex-smoker -Fall been transplant in 2002 including the small bowel, pancreas, duodenum and stomach done at the [facility] -Multiple abdominal fistulas with ostomy bag being followed at [facility] -GERD -Chronic gastroparesis -Chronic venous intake vein thrombosis -Immunosuppressed age -Chronic kidney disease stage III from nephrosclerosis -Ileostomy Plan: Spoke to the dietitian. We'll start the TPN later tonight. Hold of lipids. Keep the patient nothing by mouth. Care was discussed with the patient. Repeat labs in the morning. IV fluids to continue. Prognosis guarded.
[2018-11-21] MEDS: SODIUM CHLORIDE 0.9% 1,000 ML IV SCH ×2 (18:52→22:13)
[2018-11-21] MEDS ORDERED: MVI, ADULT NO.4 WITH VIT K 10 ML, TRACE (CONC-1ML/DOSE) 1 ML in AMINO ACID 5%-D15W+LYTE... IV ONE ×3 (19:00)
[2018-11-21] MEDS: MELATONIN 3 MG TABLET PO SCH (20:14)
[2018-11-21] MEDS: traZODone HCL 100 MG TAB PO SCH (20:14)
[2018-11-21] MEDS: QUEtiapine 50 MG TAB PO SCH (20:14)
[2018-11-22] MEDS ORDERED: [UNRECOGNIZED DRUG - OTHER] IV ONE (01:30)
[2018-11-22] MEDS ORDERED: AMINO ACID 5% IV ONE (01:30)
[2018-11-22] MEDS: HYDROmorphone 1 MG/ML 1 ML SYRINGE IVP PRN ×7 (02:21→21:09)
[2018-11-22] MEDS: VANCOMYCIN 1,250 MG in SODIUM CHLORIDE 0.9% 250 ML IVPB SCH (05:03)
[2018-11-22] MEDS: HYDROCORTISONE SUCCINATE 100 MG/2 ML VIAL IV SCH ×3 (05:24→21:05)
[2018-11-22 07:14] LABS: Anisocytosis Slight; Basophils % (A) 0 %; Eosinophils % (A) 0 %; HCT 27.7 % (39.0-53.0); HGB 8.2 gm/dL (13.0-17.5); Hypochromasia Marked; Lymphocytes # (A) 0.9 k/uL (1.0-4.8); Lymphocytes % (A) 6 %; MCH 26.2 pg (25.0-35.0); MCHC 29.6 g/dL (31.0-37.0); MCV 88.5 fL (80.0-100.0); Mean Platelet Volume 12.1; Monocytes # (A) 1.1 k/uL (0-1.0); Monocytes % (A) 7 %; Neutrophils # (A) 12.9 k/uL (1.3-7.7); Neutrophils % (A) 86 %; Platelet Count 248 k/uL (150-450); Poikilocytosis Moderate; RBC 3.13 m/uL (4.30-5.90); RDW 17.2 % (11.5-15.5); WBC 15.1 k/uL (3.8-10.6)
[2018-11-22 07:19] LABS: African American GFR (CKD) >90 (>60 ml/min/1.73 sqM); Albumin 2.3 g/dL (3.5-5.0); Anion Gap 4 mmol/L; Blood Urea Nitrogen 36 mg/dL (9-20); Calcium 8.1 mg/dL (8.4-10.2); Carbon Dioxide 30 mmol/L (22-30); Chloride 107 mmol/L (98-107); Glucose 250 mg/dL (74-99); Magnesium 1.8 mg/dL (1.6-2.3); Phosphorus 3.1 mg/dL (2.5-4.5); Potassium 3.8 mmol/L (3.5-5.1); Sodium 141 mmol/L (137-145)
[2018-11-22 07:22] LABS: Ionized Calcium 5.2 mg/dL (4.5-5.3)
[2018-11-22] MEDS: SYMBICORT 160-4.5 MCG INHALER INHALATION SCH ×2 (07:38→19:15)
[2018-11-22] MEDS: GABAPENTIN 400 MG CAP PO SCH ×3 (08:37→21:05)
[2018-11-22] MEDS: BACLOFEN 10 MG TAB PO SCH ×3 (08:37→21:05)
[2018-11-22] MEDS: NYSTATIN 100,000 UNIT/ML SUSP 500,000 UNIT/5 ML CUP PO SCH ×4 (08:38→21:45)
[2018-11-22] MEDS: TACROLIMUS 1 MG CAP PO SCH ×2 (08:39→21:46)
[2018-11-22] MEDS: FERROUS GLUCONATE 325 MG PO SCH ×2 (08:40→21:06)
[2018-11-22] MEDS: SERTRALINE 100 MG TAB PO SCH (08:43)
[2018-11-22] MEDS ORDERED: POTASSIUM CHLORIDE 10 MEQ in WATER FOR INJECTION 1 100ML.BAG IVPB SCH (10:00)
[2018-11-22] MEDS ORDERED: MAGNESIUM SULFATE-D5W PMX 1 GM in DEXTROSE/WATER 1 100ML.BAG IVPB SCH (10:00)
[2018-11-22 12:26] LABS: Glucose,Whole Blood 156 mg/dL (75-99)
--- NOTE | 2018-11-22 12:53 | P.CNPUL ---
History of Present Illness Consult date: 11/22/18 Requesting physician: Angel Swanson Reason for consult: other (Critical care management) Chief complaint: Abdominal pain History of present illness: This is a very pleasant 48-year-old gentleman who follows with Dr. Zhao as his primary care physician. 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 He is also well-known to Dr. Daniels from previous admissions. He is a recipient of small bowel, stomach and pancreatic transplantation, who is coming in for another admission for abdominal pain. The patient has had bouts of recur rent pancreatitis and at time of this current admission acute pancreatitis was again diagnosed. He has multiple abdominal enterocutaneous fistulas. His condition is been essentially followed up at the [facility]. The patient spent at least 90 days recently at the [facility] during which he had undergone 3 abdominal surgeries and he tells that the ultimate plan is to take off all of these fistulas and be considered for another surgical intervention at a later stage. He will be in contact with the surgeon there on December 08 and probable surgery shortly thereafter. The plan is to possibly remove the entire small bowel. He is on TPN for nutritional support. After his last admission here just here in October with subsequent transfer to the [facility]. No interventions were performed then. He is on long-term immunosuppression with Prograf and the patient has been taking Bactrim 3 times a week. He presented here to the emergency room on 10/20/2018 with complaints of recurrent abdominal pain again felt to be in acute pancreatitis. Alk phos 190, amylase 262, lipase 900 improved to 511. He was to be receiving octreotide daily and was transferred here to the intensive care unit today 11/22/2018 as they're unable to infuse it on the floor. He is currently awake and alert in no acute distress. Abdominal pain is minimal. No shortness of breath cough or congestion. He's on room air. He is hemodynamically stable. No significant blood noted out of fistulas. His current hemoglobin is 8.2. Count 15.1. Creatinine 0.92. Glucose 156. He is currently on vancomycin. Review of Systems Review of Systems Constitutional: Reports anorexia, Reports chronic pain, Reports fatigue, Reports lethargy, Reports poor appetite, Reports weakness Eyes: bilateral tunnel vision/blind spots, denies as per HPI, denies blurred vision, denies bulging eye, denies decreased vision, denies diplopia, denies discharge, denies dry eye, denies irritation, denies itching, denies pain, denies photophobia, denies loss of peripheral vision, denies loss of vision Ears, nose, mouth and throat: Denies headache, Denies sore throat Breasts: absent: as per HPI, gynecomastia Cardiovascular: Reports decreased exercise tolerance, Reports dyspnea on exertion Respiratory: Reports dyspnea Gastrointestinal: Reports as per HPI, Reports abdominal pain, Reports indigestion Genitourinary: Reports as per HPI Musculoskeletal: Reports as per HPI, Reports atrophy, Reports gait dysfunction, Reports muscle weakness Musculoskeletal: absent: ankle pain, ankle stiffness, ankle swelling Integumentary: Reports as per HPI Patient has intermittent fistula opening into the anterior abdominal wall and discussed earlier, Denies pruritus, Denies rash Neurological: Reports as per HPI Psychiatric: Reports anxiety Endocrine: Reports as per HPI Hematologic/Lymphatic: Reports as per HPI Allergic/Immunologic: Reports as per HPI Past Medical History Past Medical History: Atrial Fibrillation, COPD, Deep Vein Thrombosis (DVT), G ERD/Reflux, Pneumonia, Renal Disease, Sleep Apnea/CPAP/BIPAP Additional Past Medical History / Comment(s): 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 and the patient ultimately had multi-organ transplantation including the stomach, small bowel, duodenum and pancreas 2002, post operative complications including 2 dehisciences and developed fistula twice-has ileostomy and an abdominal wound drainage bag, recurrent pancreatitis, history of adrenal insufficiency maintained on Cortef, immunosuppressed, chronic mesenteric vein thrombosis, 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 blood clot in aortic graft History of Any Multi-Drug Resistant Organisms: C-DIFF, ESBL, MRSA Date of last positivie culture/infection: MRSA sputum 05/29/17 MDRO Source:: C-diff stool 05/11/18 colonized Past Surgical History: Bowel Resection, Cholecystectomy Additional Past Surgical History / Comment(s): Multivisceral organ transplant including bowel, doudenum,pancreas, and stomach at [facility]- follows thru [facility],spleen removed, left knee arthrotomy, EGD, colonoscopy, ERCP with insertion of a pancreatic duct stent- since removed . ileostomy in october 2017, dehised x 2, repair of fistula, second fistula appeared may 01, 2018, pt currently has ostomy bag in which fistula drained into, colonized c-diff, MRSA in sputum a year ago, as infant valve surgery, varghese catheter. fistulas returned after attempted repair. Past Anesthesia/Blood Transfusion Reactions: No Reported Reaction Additional Past Anesthesia/Blood Transfusion Reaction / Comment(s): STATES R/T TO MULTIPLE SX HE REQUIRES A LOT OF MEDICATION for anesthesia. He has had multiple blood transfusions without reaction. Past Psychological History: Anxiety, Depression Additional Psychological History / Comment(s): lives in the family home with his significant other and 2 dogs. Medically disabled. No experience. No extensive travel. Receives his medical care currently at the [facility] Smoking Status: Former smoker Past Alcohol Use History: None Reported Additional Past Alcohol Use History / Comment(s): Started smoking about 1982(off and on) currently only a few ciggarettes a day Past Drug Use History: None Reported - Past Family History Mother History Unknown: Yes Additional Family Medical History / Comment(s): pt is adopted, does not know any hx Father History Unknown: Yes Additional Family Medical History / Comment(s): Pt is adopted and knows no history. Medications and Allergies Home Medications Medication Instructions Recorded Confirmed Type Ferrous Gluconate 325 mg PO BID 09/02/13 11/20/18 History Sertraline [Zoloft] 150 mg PO DAILY 09/02/13 11/20/18 History Albuterol Sulfate [Proair Hfa] 2 puff INHALATION RT-Q6H PRN 12/19/16 11/20/18 History traZODone HCL 100 mg PO HS 12/19/16 11/20/18 History Budesonide/Formoterol Fumarate 2 puff INHALATION RT-BID 05/17/17 11/20/18 History [Symbicort 160-4.5 Mcg Inhaler] Methadone [Dolophine] 10 mg PO QAM 05/17/17 11/20/18 History clonazePAM [Klonopin ODT Wafer] 0.25 mg PO HS 12/12/17 11/20/18 History HYDROcodone/APAP 10-325MG [[place] 1 tab PO Q4H PRN 01/10/18 11/20/18 History 10-325] Methadone [Dolophine] 5 mg PO HS 01/22/18 11/20/18 History Gabapentin 1,200 mg PO TID 06/18/18 11/20/18 History Tacrolimus [Prograf] 3 mg SL BID 07/18/18 11/20/18 History Ergocalciferol [Vitamin D2] 50,000 unit PO MOWEFR 11/11/18 11/20/18 History Hydrocortisone Sodium Succ 0.4 ml IV Q8H 11/11/18 11/20/18 History Metoprolol Tartrate [Lopressor] 12.5 mg PO BID PRN 11/11/18 11/20/18 History Nystatin 100,000 Unit/ml Susp 500,000 unit PO QID 11/11/18 11/20/18 History [Mycostatin Oral Susp] QUEtiapine [SEROquel] 50 mg PO HS 11/11/18 11/20/18 History Sulfamethox-Tmp 800-160Mg [Bactrim 0.5 tab PO MOWEFR 11/11/18 11/20/18 History DS 800-160 mg] Baclofen [Lioresal] 10 mg PO TID 11/20/18 11/20/18 History Melatonin 3 mg PO HS 11/20/18 11/20/18 History Vancomycin 1.25g/250ml 250 ml IV Q12H 11/20/18 11/20/18 History Allergies Allergy/AdvReac Type Severity Reaction Status Date / Time morphine Allergy Itching Verified 11/20/18 19:15 aspirin AdvReac GI Verified 11/20/18 19:15 BLEEDING , ABDOMINAL PAIN heparin AdvReac abdominal Verified 11/20/18 19:15 pain , GI bleeding ketorolac tromethamine AdvReac migraines Verified 11/20/18 19:15 [From Toradol] Physical Exam Vitals: Vital Signs Temp Pulse Resp BP BP Pulse Ox 11/22/18 08:00 93 16 11/22/18 07:00 97.7 F 93 16 122/76 98 11/22/18 02:00 98.0 F 91 18 111/61 98 11/21/18 19:15 98.0 F 80 16 120/75 97 11/21/18 16:00 18 11/21/18 15:00 97.7 F 84 18 95/58 99 Intake and Output 11/21/18 11/22/18 11/22/18 22:59 06:59 14:59 Output Total 1150 350 Balance -1150 -350 Output: Urine 450 350 Stool 700 Other: Voiding Method Urinal Urinal Physical Exam: Pleasant 48-year-old male patient, awake and alert and the patien t is not having any acute respiratory distress. He does complain on and off of having some abdominal pain. Head exam was generally normal. There was no scleral icterus or corneal arcus. Mucous membranes were moist. Neck was supple and without jugular venous distension, thyromegaly, or carotid bruits. Carotids were easily palpable bilaterally. There was no adenopathy. Lungs sounds are diminished bilaterally and the patient is an [place] over the anterior chest area. Heart sounds are irregular and tachycardic consistent with atrial fibrillation and also cervical murmurs appreciated. Abdomen shows multiple enterocutaneous fistula over the anterior abdominal wall and there is minimal bloody output from the abdominal wall surface. The patient has also a gastrocutaneous fistula at the site of the previous G-tube insertion. There is also a ileostomy over the right lower quadrant of the abdomen that has put out only minimal amount over the past few days. No significant distention. Examination of the extremities revealed easily palpable radial, femoral and pedal pulses. There was no cyanosis, clubbing or edema. Examination of the skin revealed no evidence of significant rashes, suspicious appearing nevi or other concerning lesions. Abnormalities are mainly over the anterior abdominal wall as the patient has significant number of enterocutaneous fistulas. Psychiatric: Normal mood, affect, and normal mental status examination. Musculoskeletal: Normal range of motion, no weakness, no deformities Lymphatics: No lymphadenopathy was appreciated. Results - Laboratory Findings CBC and BMP: 11/22/18 06:41 11/22/18 06:41 Abnormal lab findings: Abnormal Labs 11/20/18 11/20/18 11/20/18 18:00 18:00 18:00 WBC 15.9 H RBC 3.52 L Hgb 9.3 L Hct 30.0 L MCHC RDW 17.2 H Neutrophils # Lymphocytes # Monocytes # Potassium 3.2 L BUN 48 H Glucose 157 H Calcium 8.2 L Alkaline Phosphatase 190 H Total Protein 4.9 L Albumin 2.5 L Amylase 262 H Lipase 900 H 11/21/18 11/21/18 11/21/18 06:50 06:50 15:36 WBC 19.9 H RBC 3.40 L Hgb 9.3 L Hct 30.2 L MCHC 30.7 L RDW 17.6 H Neutrophils # 17.4 H Lymphocytes # Monocytes # Potassium BUN 33 H Glucose 158 H Calcium 7.7 L Alkaline Phosphatase Total Protein Albumin 2.4 L Amylase Lipase 511 H 11/22/18 11/22/18 06:41 06:41 WBC 15.1 H RBC 3.13 L Hgb 8.2 L Hct 27.7 L MCHC 29.6 L RDW 17.2 H Neutrophils # 12.9 H Lymphocytes # 0.9 L Monocytes # 1.1 H Potassium BUN 36 H Glucose 250 H Calcium 8.1 L Alkaline Phosphatase Total Protein Albumin 2.3 L Amylase Lipase Assessment and Plan Assessment: Impression: #1 Acute pancreatitis with elevated lipase which is recurrent and secondary abdominal pain. The patient is on TPN for nutritional support. He is status post cholecystectomy not noted on previous CAT scans. #2 Several enterocutaneous fistulas with a history of bleeding. The patient is to be on octreotide daily and was transferred here to the intensive care unit today for the same. Current hemoglobin 8.2. The patient is a recipient of a multiorgan transplantation including the small bowel with complicated bowel disease, multiple surgeries with the subsequent development of altered bowel enterocutaneous fistulas. There is also a gastrocutaneous fistula and ileostomy in place. #3 History of atrial fibrillation. #4 TPN for nutritional support. #5 Chronic obstructive pulmonary disease, currently inactive and stable. On Symbicort and pro-air in the outpatient setting. #6 Previous tobacco dependence. #7 Multiple visceral organ transplantation including stomach, small bowel and pancreas. #8 Chronic pancreatitis, requiring insertion of a pancreatic stent and the patient is currently on enzyme supplements. #9 Chronic immunosuppression maintained on Prograf. #10 Chronic adrenal insufficiency maintained on Cortef. #11 Previous hospitalizations for GI bleed including 11/11/2018 with subsequent transfer to [facility]. No interventions performed. #12 Gastroparesis. #13 Chronic renal failure. Near #14 Chronic anemia secondary to renal failure. #15 Previous history of MRSA. #16 Depression. Plan: The patient was seen and evaluated by Dr. Duarte. He is currently stable from the pulmonary and critical care standpoint. On room air. Continue Symbicort and albuterol. Hemodynamically stable. We will initiate his octreotide. Abdominal pain has improved. Lipase down to 232 today. Continue his vancomycin. Continue his Bactrim. We will continue to monitor him closely here in the intensive care unit another 24 hours. We will continue to follow make further recommendations based on his clinical status. I, the cosigning physician, performed a history & physical examination of the patient. Lungs sounds are clear. Maintaining good O2 saturations in the 90s on room air. I discussed the assessment and plan of care with my nurse practitioner, Zenobia Haney. I attest to the above consultation as dictated by her. Time with Patient: Greater than 30
[2018-11-22] MEDS: OCTREOTIDE 500 MCG in SODIUM CHLORIDE 0.9% 250 ML IV SCH ×2 (13:01→23:14)
[2018-11-22] MEDS: SODIUM CHLORIDE 0.9% 1,000 ML IV SCH (13:02)
[2018-11-22] MEDS ORDERED: HYDROmorphone 1 MG/ML 1 ML SYRINGE IVP PRN (13:32)
[2018-11-22] MEDS ORDERED: VANCOMYCIN TROUGH DUE 1 EACH MISC MISCELLANE ONE (15:00)
--- NOTE | 2018-11-22 15:04 | P.PN ---
Progress Note - Text Progress Note Date: 11/22/18 Chief Complaint: Abdominal pain Interval history: This is a 48-year-old patient of Dr. Ras Zhao. Patient rather extensive complicated medical history. Patient had a multivisceral transplant in [place] including a mesenteric vein graft followed by presenting graft thrombosis and subsequent gastroparesis. Patient had been on anticoagulation. 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 The patient has gotten a little insufficiency, chronic anemia and for organ transplant in 2002 including small bowel, pancreas, duodenum and stomach in [place]. Patient also had valvular cardiac surgery done. Patient also had bowel does high since and abdomen had to be opened up with the same. Patient also developed multiple abdominal fistulas and food was coming out of the same. Patient was taken to [facility]. Patient's had multiple surgeries for the same. Including no having an ileostomy bag. Patient does get repeated attacks of pancreatitis.. Patient was in the hospital and discharge order week ago when his present with GI bleed. Initially patient did not want to be transferred to [facility] but then had to be transferred because he became unstable. Now yet again patient presents with increasing abdominal pain. He does get TPN and lipids throughout [place]. Patient is here with his and his mother. Refuses to get transferred to [facility]. Was to get treated here. Understanding well the surgeon said cannot do any surgical intervention on him. Patient also stated that he is supposed of organ transplant that is including his duodenum small bowel yet again. Had some nausea. No fever no chills. Being admitted for the same. Admitted with acute pancreatitis Today-patient had to be moved to the ICU because patient also takes octreotide with his TPN. That can be only given in the ICU. Abdominal pain is somewhat better. He is ready to cut back on the Dilaudid. Review of systems: Was done for constitutional, cardiovascular, GI, pulmonary. relevant finding as above Active Medications Baclofen (Lioresal) 10 mg PO TID [facility] Last Admin: 11/22/18 08:37 Dose: 10 mg Documented by: Budesonide/Formoterol Fumarate (Symbicort 160-4.5 Mcg Inhaler) 2 puff INHALATION RT-BID [facility] Last Admin: 11/22/18 07:38 Dose: 2 puff Documented by: Clonazepam (Klonopin) 0.25 mg PO HS [facility] Last Admin: 11/21/18 20:14 Dose: 0.25 mg Documented by: Ergocalciferol (Vitamin D2) 50,000 unit PO MoWeFr@0900 [facility] Last Admin: 11/21/18 10:53 Dose: 50,000 unit Documented by: Gabapentin (Neurontin) 1,200 mg PO TID [facility] Last Admin: 11/22/18 08:37 Dose: 1,200 mg Documented by: Hydrocortisone Sodium Succinate (Solu-Cortef) 20 mg IV Q8H [facility] Last Admin: 11/22/18 14:41 Dose: 20 mg Documented by: Hydromorphone HCl (Dilaudid) 1 mg IVP Q3HR PRN PRN Reason: Mild to Moderate Pain Hydromorphone HCl (Dilaudid) 1.5 mg IVP Q3HR PRN PRN Reason: Severe Pain Last Admin: 11/22/18 14:41 Dose: 1.5 mg Documented by: Sodium Chloride (Saline 0.9%) 1,000 mls @ 75 mls/hr IV .[id number] [facility] Last Admin: 11/22/18 13:02 Dose: 75 mls/hr Documented by: Vancomycin HCl 1,250 mg/ (Sodium Chloride) 250 mls @ 125 mls/hr IVPB Q12H [facility] Last Admin: 11/22/18 05:03 Dose: 125 mls/hr Documented by: Parenteral Vitamin Supplement 10 ml/ Chromium/Copper/Manganese/Seleni/Zn 1 ml/Amino Ac/Electrol/Dextrose/Calcium 1,011 mls @ 0 mls/hr IV .Q0M ONE; Protocol Stop: 11/22/18 19:01 Amino Ac/Electrol/Dextrose/Calcium (Clinimix E 5%-D15% Solution) 1,000 mls @ 0 mls/hr IV .Q0M ONE; Protocol Stop: 11/23/18 01:31 Octreotide Acetate 500 mcg/ (Sodium Chloride) 250 mls @ 25 mls/hr IV .Q10H [facility] Last Admin: 11/22/18 13:01 Dose: 50 mcg/hr, 25 mls/hr Documented by: Melatonin (Melatonin) 3 mg PO HS [facility] Last Admin: 11/21/18 20:14 Dose: 3 mg Documented by: Metoprolol Tartrate (Lopressor) 12.5 mg PO BID PRN PRN Reason: Blood Pressure - High Naloxone HCl (Narcan) 0.2 mg IV Q2M PRN PRN Reason: Opioid Reversal Ferrous Gluconate [ Ferrous Gluconate] 325 Mg 325 mg PO BID [facility] Last Admin: 11/22/18 08:40 Dose: Not Given Documented by: Nystatin (Mycostatin Oral Susp) 500,000 unit PO QID [facility] Last Admin: 11/22/18 08:38 Dose: 500,000 unit Documented by: Ondansetron HCl (Zofran) 4 mg IVP Q8HR PRN PRN Reason: Nausea And Vomiting Quetiapine Fumarate (Seroquel) 50 mg PO [facility] Last Admin: 11/21/18 20:14 Dose: 50 mg Documented by: Sertraline HCl (Zoloft) 150 mg PO DAILY [facility] Last Admin: 11/22/18 08:43 Dose: 150 mg Documented by: Tacrolimus (Prograf) 3 mg PO BID [facility] Last Admin: 11/22/18 08:39 Dose: 3 mg Documented by: Trazodone HCl (Desyrel) 100 mg PO [facility] Last Admin: 11/21/18 20:14 Dose: 100 mg Documented by: Trimethoprim/Sulfamethoxazole (Bactrim Ds) 0.5 each PO MoWeFr@0900 [facility] Last Admin: 11/21/18 10:53 Dose: 0.5 each Documented by: Physical examination: VITAL SIGNS: 97.7, 93, 16, 122/76, 98% room air GENERAL: Laying in bed, more comfortable. EYES: Pupils equal. Conjunctiva pale. HEENT: External appearance of nose and ears normal, oral cavity dry. NECK: JVD not raised; masses not palpable. HEART: First and second heart sounds are normal; no edema. LUNGS: Respiratory rate increased, decreased breath sounds. ABDOMEN: Multiple abdominal wall fistulas with ostomy bag., Ileostomy bag. PSYCH: Alert and oriented x3; mood and affect anxiousl. NEUROLOGICAL: Cranial nerves grossly intact; no facial asymmetry, power and sensation grossly intact. Investigations: White count 15.1 hemoglobin 8.2 Lipase 232 Admission labs White count 19.9 hemoglobin 98.3 platelets 295 Potassium 4.1 creatinine 0.97 Lipase 511 Assessment: -Acute pancreatitis, improving POA -COPD in an ex-smoker -Fall been transplant in 2002 including the small bowel, pancreas, duodenum and stomach done at the [facility] -Multiple abdominal fistulas with ostomy bag being followed at [facility] -GERD -Chronic gastroparesis -Chronic venous intake vein thrombosis -Immunosuppressed age -Chronic kidney disease stage III from nephrosclerosis -Ileostomy Plan: Discussed with the patient. Dilaudid cut back to 1-1.5 mg every 3 hours. Was started on ice chips. Patient moved to the ICU because of takes IV octreotide. On TPN. We'll start the patient's lipids tonight.
[2018-11-22] MEDS ORDERED: VANCOMYCIN IV PER PHARMACY 1 EACH MISC MISCELLANE PRN (15:28)
[2018-11-22] MEDS ORDERED: MVI, ADULT NO.4 WITH VIT K 10 ML, TRACE (CONC-1ML/DOSE) 1 ML in AMINO ACID 5%-D15W+LYTE... IV ONE ×3 (19:00)
[2018-11-22] MEDS: MELATONIN 3 MG TABLET PO SCH (21:05)
[2018-11-22] MEDS: clonazePAM 0.5 MG TAB PO SCH (21:06)
[2018-11-22] MEDS: QUEtiapine 50 MG TAB PO SCH (21:45)
[2018-11-22] MEDS: traZODone HCL 100 MG TAB PO SCH (21:45)
[2018-11-23] MEDS: HYDROmorphone 1 MG/ML 1 ML SYRINGE IVP PRN ×7 (00:08→20:27)
[2018-11-23] MEDS ORDERED: AMINO ACID 5% IV ONE (01:30)
[2018-11-23] MEDS ORDERED: [UNRECOGNIZED DRUG - OTHER] IV ONE (01:30)
[2018-11-23] MEDS: SODIUM CHLORIDE 0.9% 1,000 ML IV SCH ×2 (02:38→15:07)
[2018-11-23 05:18] LABS: African American GFR (CKD) >90 (>60 ml/min/1.73 sqM); Albumin 2.4 g/dL (3.5-5.0); Anion Gap 4 mmol/L; Blood Urea Nitrogen 30 mg/dL (9-20); Calcium 8.1 mg/dL (8.4-10.2); Carbon Dioxide 33 mmol/L (22-30); Chloride 104 mmol/L (98-107); Glucose 383 mg/dL (74-99); Magnesium 1.5 mg/dL (1.6-2.3); Potassium 3.6 mmol/L (3.5-5.1); Sodium 141 mmol/L (137-145)
[2018-11-23 05:23] LABS: Vancomycin,Random 16.2 ug/mL
[2018-11-23] MEDS ORDERED: Magnesium Replacement Protocol 1 EACH MISC MISCELLANE PRN (05:23)
[2018-11-23] MEDS ORDERED: Potassium Replacement Protocol 1 EACH MISC MISCELLANE PRN (05:24)
[2018-11-23 05:27] LABS: Anisocytosis Slight; Basophils % (A) 0 %; Eosinophils % (A) 0 %; HCT 29.4 % (39.0-53.0); HGB 8.9 gm/dL (13.0-17.5); Hypochromasia Marked; Lymphocytes # (A) 1.1 k/uL (1.0-4.8); Lymphocytes % (A) 9 %; MCH 27.4 pg (25.0-35.0); MCHC 30.2 g/dL (31.0-37.0); MCV 90.8 fL (80.0-100.0); Mean Platelet Volume 12.4; Monocytes # (A) 1.2 k/uL (0-1.0); Monocytes % (A) 9 %; Neutrophils # (A) 10.4 k/uL (1.3-7.7); Neutrophils % (A) 80 %; Platelet Count 257 k/uL (150-450); Poikilocytosis Moderate; RBC 3.24 m/uL (4.30-5.90); RDW 17.6 % (11.5-15.5)
[2018-11-23 05:31] LABS: Ionized Calcium 4.9 mg/dL (4.5-5.3)
[2018-11-23] MEDS ORDERED: POTASSIUM CHLORIDE ER 20 MEQ TAB.ER PO SCH (06:00)
[2018-11-23] MEDS: POTASSIUM CHLORIDE 10 MEQ in WATER FOR INJECTION 1 100ML.BAG IVPB SCH ×2 (06:18→08:37)
[2018-11-23] MEDS: MAGNESIUM SULFATE-D5W PMX 1 GM in DEXTROSE/WATER 1 100ML.BAG IVPB SCH ×2 (06:18→08:37)
[2018-11-23] MEDS: HYDROCORTISONE SUCCINATE 100 MG/2 ML VIAL IV SCH ×3 (06:19→21:40)
[2018-11-23] MEDS ORDERED: INSULIN ASPART (NovoLOG) 100 UNIT/ML VIAL SQ SCH (06:30)
[2018-11-23 06:33] LABS: Glucose,Whole Blood 343 mg/dL (75-99)
[2018-11-23] MEDS: INSULIN ASPART (NovoLOG) 100 UNIT/ML VIAL SQ SCH ×4 (06:40→20:16)
[2018-11-23] MEDS: SYMBICORT 160-4.5 MCG INHALER INHALATION SCH ×2 (07:37→19:38)
[2018-11-23] MEDS: FERROUS GLUCONATE 325 MG PO SCH ×2 (08:28→20:17)
[2018-11-23] MEDS: GABAPENTIN 400 MG CAP PO SCH ×3 (08:37→21:40)
[2018-11-23] MEDS: TACROLIMUS 1 MG CAP PO SCH ×2 (08:38→20:19)
[2018-11-23] MEDS: BACLOFEN 10 MG TAB PO SCH ×3 (08:38→21:39)
[2018-11-23] MEDS: NYSTATIN 100,000 UNIT/ML SUSP 500,000 UNIT/5 ML CUP PO SCH ×4 (08:39→21:40)
[2018-11-23] MEDS: SERTRALINE 100 MG TAB PO SCH (08:39)
--- NOTE | 2018-11-23 10:19 | P.GSCN ---
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 blood clot in aortic graft History of Any Multi-Drug Resistant Organisms: C-DIFF, ESBL, MRSA Year Discovered:: MRSA sputum 05/29/17 MDRO Source:: C-diff stool 05/11/18 colonized Past Surgical History: Bowel Resection, Cholecystectomy Additional Past Surgical History / Comment(s): Multivisceral organ transplant including bowel, doudenum,pancreas, and stomach at [facility]- follows thru [facility],spleen removed, left knee arthrotomy, EGD, colonoscopy, ERCP with insertion of a pancreatic duct stent- since removed . ileostomy in october 2017, dehised x 2, repair of fistula, second fistula appeared may 01, 2018, pt currently has ostomy bag in which fistula drained into, colonized c-diff, MRSA in sputum a year ago, as infant valve surgery, varghese catheter. fistulas returned after attempted repair. Past Anesthesia/Blood Transfusion Reactions: No Reported Reaction Additional Past Anesthesia/Blood Transfusion Reaction / Comm: STATES R/T TO MULTIPLE SX HE REQUIRES A LOT OF MEDICATION for anesthesia. He has had multiple blood transfusions without reaction. Past Psychological History: Anxiety, Depression Additional Psychological History / Comment(s): lives in the family home with his significant other and 2 dogs. Medically disabled. No experience. No extensive travel. Receives his medical care currently at the [facility] Smoking Status: Former smoker Past Alcohol Use History: None Reported Additional Past Alcohol Use History / Comment(s): Started smoking about 1982(off and on) currently only a few ciggarettes a day Past Drug Use History: None Reported - Past Family History Mother History Unknown: Yes Additional Family Medical History / Comment(s): pt is adopted, does not know any hx Father History Unknown: Yes Additional Family Medical History / Comment(s): Pt is adopted and knows no history. Medications and Allergies Home Medications Medication Instructions Recorded Confirmed Type Ferrous Gluconate 325 mg PO BID 09/02/13 11/20/18 History Sertraline [Zoloft] 150 mg PO DAILY 09/02/13 11/20/18 History Albuterol Sulfate [Proair Hfa] 2 puff INHALATION RT-Q6H PRN 12/19/16 11/20/18 History traZODone HCL 100 mg PO HS 12/19/16 11/20/18 History Budesonide/Formoterol Fumarate 2 puff INHALATION RT-BID 05/17/17 11/20/18 History [Symbicort 160-4.5 Mcg Inhaler] Methadone [Dolophine] 10 mg PO QAM 05/17/17 11/20/18 History clonazePAM [Klonopin ODT Wafer] 0.25 mg PO HS 12/12/17 11/20/18 History HYDROcodone/APAP 10-325MG [Maurice 1 tab PO Q4H PRN 01/10/18 11/20/18 History 10-325] Methadone [Dolophine] 5 mg PO HS 01/22/18 11/20/18 History Gabapentin 1,200 mg PO TID 06/18/18 11/20/18 History Tacrolimus [Prograf] 3 mg SL BID 07/18/18 11/20/18 History Ergocalciferol [Vitamin D2] 50,000 unit PO MOWEFR 11/11/18 11/20/18 History Hydrocortisone Sodium Succ 0.4 ml IV Q8H 11/11/18 11/20/18 History Metoprolol Tartrate [Lopressor] 12.5 mg PO BID PRN 11/11/18 11/20/18 History Nystatin 100,000 Unit/ml Susp 500,000 unit PO QID 11/11/18 11/20/18 History [Mycostatin Oral Susp] QUEtiapine [SEROquel] 50 mg PO HS 11/11/18 11/20/18 History Sulfamethox-Tmp 800-160Mg [Bactrim 0.5 tab PO MOWEFR 11/11/18 11/20/18 History DS 800-160 mg] Baclofen [Lioresal] 10 mg PO TID 11/20/18 11/20/18 History Melatonin 3 mg PO HS 11/20/18 11/20/18 History Vancomycin 1.25g/250ml 250 ml IV Q12H 11/20/18 11/20/18 History Allergies Allergy/AdvReac Type Severity Reaction Status Date / Time morphine Allergy Itching Verified 11/20/18 19:15 aspirin AdvReac GI Verified 11/20/18 19:15 BLEEDING , ABDOMINAL PAIN heparin AdvReac abdominal Verified 11/20/18 19:15 pain , GI bleeding ketorolac tromethamine AdvReac migraines Verified 11/20/18 19:15 [From Toradol] Surgical - Exam Vital Signs Temp Pulse Resp BP Pulse Ox 98.1 F 79 16 91/56 98 11/20/18 18:28 11/20/18 18:28 11/20/18 18:28 11/20/18 18:28 11/20/18 18:28 Results - Labs 11/23/18 04:41 11/23/18 04:41 Abnormal Lab Results - Last 24 Hours (Table) 11/22/18 11/23/18 11/23/18 Range/Units 12:14 04:41 04:41 WBC 13.0 H (3.8-10.6) k/uL RBC 3.24 L (4.30-5.90) m/uL Hgb 8.9 L (13.0-17.5) gm/dL Hct 29.4 L (39.0-53.0) % MCHC 30.2 L (31.0-37.0) g/dL RDW 17.6 H (11.5-15.5) % Neutrophils # 10.4 H (1.3-7.7) k/uL Monocytes # 1.2 H (0-1.0) k/uL Carbon Dioxide 33 H (22-30) mmol/L BUN 30 H (9-20) mg/dL Glucose 383 H (74-99) mg/dL POC Glucose (mg/dL) 156 H (75-99) mg/dL Calcium 8.1 L (8.4-10.2) mg/dL Magnesium 1.5 L (1.6-2.3) mg/dL Albumin 2.4 L (3.5-5.0) g/dL 11/23/18 Range/Units 06:21 WBC (3.8-10.6) k/uL RBC (4.30-5.90) m/uL Hgb (13.0-17.5) gm/dL Hct (39.0-53.0) % MCHC (31.0-37.0) g/dL RDW (11.5-15.5) % Neutrophils # (1.3-7.7) k/uL Monocytes # (0-1.0) k/uL Carbon Dioxide (22-30) mmol/L BUN (9-20) mg/dL Glucose (74-99) mg/dL POC Glucose (mg/dL) 343 H (75-99) mg/dL Calcium (8.4-10.2) mg/dL Magnesium (1.6-2.3) mg/dL Albumin (3.5-5.0) g/dL Diabetes panel 11/23/18 Range/Units 04:41 Sodium 141 (137-145) mmol/L Potassium 3.6 (3.5-5.1) mmol/L Chloride 104 (98-107) mmol/L Carbon Dioxide 33 H (22-30) mmol/L BUN 30 H (9-20) mg/dL Creatinine 0.79 (0.66-1.25) mg/dL Glucose 383 H (74-99) mg/dL Calcium 8.1 L (8.4-10.2) mg/dL Albumin 2.4 L (3.5-5.0) g/dL Calcium panel 11/23/18 Range/Units 04:41 Calcium 8.1 L (8.4-10.2) mg/dL Ionized Calcium Hany 4.9 (4.5-5.3) mg/dL Phosphorus 3.0 (2.5-4.5) mg/dL Albumin 2.4 L (3.5-5.0) g/dL Pituitary panel 11/23/18 Range/Units 04:41 Sodium 141 (137-145) mmol/L Potassium 3.6 (3.5-5.1) mmol/L Chloride 104 (98-107) mmol/L Carbon Dioxide 33 H (22-30) mmol/L BUN 30 H (9-20) mg/dL Creatinine 0.79 (0.66-1.25) mg/dL Glucose 383 H (74-99) mg/dL Calcium 8.1 L (8.4-10.2) mg/dL Adrenal panel 11/23/18 Range/Units 04:41 Sodium 141 (137-145) mmol/L Potassium 3.6 (3.5-5.1) mmol/L Chloride 104 (98-107) mmol/L Carbon Dioxide 33 H (22-30) mmol/L BUN 30 H (9-20) mg/dL Creatinine 0.79 (0.66-1.25) mg/dL Glucose 383 H (74-99) mg/dL Calcium 8.1 L (8.4-10.2) mg/dL Albumin 2.4 L (3.5-5.0) g/dL
--- NOTE | 2018-11-23 11:00 | P.PN ---
Subjective Progress Note Date: 11/23/18 Principal diagnosis: acute pancreatitis This is a very pleasant 48-year-old gentleman who follows with Dr. Zhao as his primary care physician. 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 He is also well-known to Dr. Daniels from previous admissions. He is a recipient of small bowel, stomach and pancreatic transplantation, who is coming in for another admission for abdominal pain. The patient has had bouts of recurrent pancreatitis and at time of this current admission acute pancreatitis was again diagnosed. He has multiple abdominal enterocutaneous fistulas. His condition is been essentially followed up at the [facility]. The patient spent at least 90 days recently at the [facility] during which he had undergone 3 abdominal surgeries and he tells that the ultimate plan is to take off all of these fistulas and be considered for another surgical intervention at a later stage. He will be in contact with the surgeon there on December 08 and probable surgery shortly thereafter. The plan is to possibly remove the entire small bowel. He is on TPN for nutritional support. After his last admission here just here in October with subsequent transfer to the [facility]. No interventions were performed then. He is on long-term immunosuppression with Prograf and the patient has been taking Bactrim 3 times a week. He presented here to the emergency room on 10/20/2018 with complaints of recurrent abdominal pain again felt to be in acute pancreatitis. Alk phos 190, amylase 262, lipase 900 improved to 511. He was to be receiving octreotide daily and was transferred here to the intensive care unit today 11/22/2018 as they're unable to infuse it on the floor. He is currently awake and alert in no acute distress. Abdominal pain is minimal. No shortness of breath cough or mayte estion. He's on room air. He is hemodynamically stable. No significant blood noted out of fistulas. His current hemoglobin is 8.2. Count 15.1. Creatinine 0.92. Glucose 156. He is currently on vancomycin. Reevaluated today on 11/23/2018, patient remains in the ICU, he is doing much better, his abdominal pain is almost completely resolved. Patient denies any nausea vomiting, denies any fever or chills, remains on TPN for nutritional support asking to have popsicles today, and he usually eats that at home.WBC count is 13.0 today hemoglobin is 8.9. Electrodes are normal renal profile is normal blood sugar is a bit elevated at C4 3, and his lipase is significantly down to 165.no hemodynamic issues over the last 24 hours.and again his pain is basically resolved. Objective - Vital Signs Vital signs: Vital Signs Temp 98.6 F 11/23/18 04:00 Pulse 77 11/23/18 06:00 Resp 22 11/23/18 06:00 BP 115/68 11/23/18 06:00 Pulse Ox 92 L 11/23/18 06:00 Intake & Output 11/22/18 11/23/18 11/23/18 18:59 06:59 18:59 Intake Total 550 3298 313 Output Total 1575 2800 Balance -1025 498 313 Weight 83.9 kg Intake: IV 550 2988 313 Amino Acid 5%-D15w+Lytes* 963 E* 1,000 ml @ Per Protocol IV .Q0M ONE Rx#: [id number] Amino Acid 5%-D15w+Lytes* 700 263 E* 1,000 ml @ Per Protocol IV .Q0M ONE Rx#: [id number] Magnesium Sulfate-D5w Pmx 100 1 gm In Dextrose/Water 1 100ml.bag @ 100 mls/hr IVPB Q1H GUY Rx#: [id number] Octreotide 500 mcg In 100 300 50 Sodium Chloride 0.9% 250 ml @ 50 MCG/HR 25 mls/hr IV .Q10H GUY Rx#: [id number] Potassium Chloride 10 meq 100 In Water For Injection 1 100ml.bag @ 100 mls/hr IVPB Q1H GUY Rx#: [id number] Sodium Chloride 0.9% 1, 450 825 000 ml @ 75 mls/hr IV . [id number] GUY Rx#:[id number] Intake, IV Titration 250 Amount Octreotide 500 mcg In 250 Sodium Chloride 0.9% 250 ml @ 50 MCG/HR 25 mls/hr IV .Q10H GUY Rx#: [id number] Oral 60 Output: Urine 1575 2150 Stool 650 Other: Voiding Method Urinal Urinal # Bowel Movements 100 - Exam Physical Exam: Pleasant 48-year-old male patient, very pleasant, in no distress. Head exam atraumatic, normocephalic. Neck was supple and without jugular venous distension, thyromegaly, or carotid bruits. Carotids were easily palpable bilaterally. There was no adenopathy. Lungs symmetrical chest expansion, clear breath sounds bilaterally. Heart sounds are irregular and tachycardic consistent with atrial fibrillation . Abdomen shows multiple enterocutaneous fistula over the anterior abdominal wall and there is minimal bloody output from the abdominal wall surface. The patient has also a gastrocutaneous fistula at the site of the previous G-tube insertion. There is also a ileostomy over the right lower quadrant of the abdomen that has put out only minimal amount over the past few days. No significant distention. Examination of the extremities revealed easily palpable radial, femoral and pedal pulses. There was no cyanosis, clubbing or edema. Examination of the skin revealed no evidence of significant rashes, Psychiatric:normal mood and affect, normal mental status. Musculoskeletal:no weaknesses or deformities, range of motion is intact Lymphatics: No lymphadenopathy was appreciated. - Labs CBC & Chem 7: 11/23/18 04:41 11/23/18 04:41 Labs: Abnormal Lab Results - Last 24 Hours (Table) 11/22/18 11/23/18 11/23/18 Range/Units 12:14 04:41 04:41 WBC 13.0 H (3.8-10.6) k/uL RBC 3.24 L (4.30-5.90) m/uL Hgb 8.9 L (13.0-17.5) gm/dL Hct 29.4 L (39.0-53.0) % MCHC 30.2 L (31.0-37.0) g/dL RDW 17.6 H (11.5-15.5) % Neutrophils # 10.4 H (1.3-7.7) k/uL Monocytes # 1.2 H (0-1.0) k/uL Carbon Dioxide 33 H (22-30) mmol/L BUN 30 H (9-20) mg/dL Glucose 383 H (74-99) mg/dL POC Glucose (mg/dL) 156 H (75-99) mg/dL Calcium 8.1 L (8.4-10.2) mg/dL Magnesium 1.5 L (1.6-2.3) mg/dL Albumin 2.4 L (3.5-5.0) g/dL 11/23/18 Range/Units 06:21 WBC (3.8-10.6) k/uL RBC (4.30-5.90) m/uL Hgb (13.0-17.5) gm/dL Hct (39.0-53.0) % MCHC (31.0-37.0) g/dL RDW (11.5-15.5) % Neutrophils # (1.3-7.7) k/uL Monocytes # (0-1.0) k/uL Carbon Dioxide (22-30) mmol/L BUN (9-20) mg/dL Glucose (74-99) mg/dL POC Glucose (mg/dL) 343 H (75-99) mg/dL Calcium (8.4-10.2) mg/dL Magnesium (1.6-2.3) mg/dL Albumin (3.5-5.0) g/dL Assessment and Plan Assessment: #1 Acute pancreatitis ,improving, almost resolved. #2 Several enterocutaneous fistulas with a history of bleeding. Hemoglobin is 8.9 today, compared to 8.2 yesterday, remains on octreotide,at 50 micrograms per hour, hence will be kept in the ICU mostly because of that specific reason. #3 History of atrial fibrillation.Rate controlled. #4 TPN for nutritional support. #5 Chronic obstructive pulmonary disease, currently inactive and stable. on his usual bronchodilators. #6 Previous tobacco dependence. #7 Multiple visceral organ transplantation including stomach, small bowel and pancreas. #8 Chronic pancreatitis, requiring insertion of a pancreatic stent and the patient is currently on enzyme supplements. #9 Chronic immunosuppression maintained on Prograf. #10 Chronic adrenal insufficiency maintained on Cortef. #11 Previous hospitalizations for GI bleed including 11/11/2018 with subsequent transfer to [facility]. No interventions performed. #12 Gastroparesis. #13 Chronic renal failure. Near #14 Chronic anemia secondary to renal failure. #15 Previous history of MRSA. #16 Depression. Recommendation: Continue to monitor the patient in the ICU since he is on octreotide, continue to monitor daily hemoglobin, continue TPN, continue his usual meds for immunosuppression and his meds for any insufficiency, his pancreatitis seems to be improving almost resolved, consider discharge planning in the next 24 hours. Time with Patient: Less than 30
[2018-11-23] MEDS ORDERED: VANCOMYCIN 1,250 MG in SODIUM CHLORIDE 0.9% 250 ML IVPB ONE (12:00)
[2018-11-23 12:03] LABS: Glucose,Whole Blood 172 mg/dL (75-99)
--- NOTE | 2018-11-23 15:38 | P.PN ---
Progress Note - Text Progress Note Date: 11/23/18 Chief Complaint: Abdominal pain Interval history: This is a 48-year-old patient of Dr. Ras Zhao. Patient rather extensive complicated medical history. Patient had a multivisceral transplant in [place] including a mesenteric vein graft followed by presenting graft thrombosis and subsequent gastroparesis. Patient had been on anticoagulation. 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 The patient has gotten a little insufficiency, chronic anemia and for organ transplant in 2002 including small bowel, pancreas, duodenum and stomach in [place]. Patient also had valvular cardiac surgery done. Patient also had bowel does high since and abdomen had to be opened up with the same. Patient also developed multiple abdominal fistulas and food was coming out of the same. Patient was taken to [facility]. Patient's had multiple surgeries for the same. Including no having an ileostomy bag. Patient does get repeated attacks of pancreatitis.. Patient was in the hospital and discharge order week ago when his present with GI bleed. Initially patient did not want to be transferred to [facility] but then had to be transferred because he became unstable. Now yet again patient presents with increasing abdominal pain. He does get TPN and lipids throughout [place]. Patient is here with his and his mother. Refuses to get transferred to [facility]. Was to get treated here. Understanding well the surgeon said cannot do any surgical intervention on him. Patient also stated that he is supposed of organ transplant that is including his duodenum small bowel yet again. Had some nausea. No fever no chills. Being admitted for the same. Admitted with acute pancreatitis Today-Overall doing better. Getting his IV Dilaudid. Abdominal pain is better. Review of systems: Was done for constitutional, cardiovascular, GI, pulmonary. relevant finding as above Active Medications Baclofen (Lioresal) 10 mg PO TID COUNTS INCLUDE 234 BEDS AT THE [facility] Last Admin: 11/23/18 15:07 Dose: 10 mg Documented by: Budesonide/Formoterol Fumarate (Symbicort 160-4.5 Mcg Inhaler) 2 puff INHALATION RT-BID COUNTS INCLUDE 234 BEDS AT THE [facility] Last Admin: 11/23/18 07:37 Dose: 2 puff Documented by: Clonazepam (Klonopin) 0.25 mg PO HS COUNTS INCLUDE 234 BEDS AT THE [facility] Last Admin: 11/22/18 21:06 Dose: 0.25 mg Documented by: Ergocalciferol (Vitamin D2) 50,000 unit PO MoWeFr@0900 COUNTS INCLUDE 234 BEDS AT THE [facility] Last Admin: 11/21/18 10:53 Dose: 50,000 unit Documented by: Gabapentin (Neurontin) 1,200 mg PO TID COUNTS INCLUDE 234 BEDS AT THE [facility] Last Admin: 11/23/18 15:07 Dose: 1,200 mg Documented by: Hydrocortisone Sodium Succinate (Solu-Cortef) 20 mg IV Q8H COUNTS INCLUDE 234 BEDS AT THE [facility] Last Admin: 11/23/18 15:06 Dose: 20 mg Documented by: Hydromorphone HCl (Dilaudid) 1 mg IVP Q4HR PRN PRN Reason: Pain Sodium Chloride (Saline 0.9%) 1,000 mls @ 75 mls/hr IV .[id number] COUNTS INCLUDE 234 BEDS AT THE [facility] Last Admin: 11/23/18 15:07 Dose: 75 mls/hr Documented by: Octreotide Acetate 500 mcg/ (Sodium Chloride) 250 mls @ 25 mls/hr IV .Q10H COUNTS INCLUDE 234 BEDS AT THE [facility] Last Admin: 11/22/18 23:14 Dose: 50 mcg/hr, 25 mls/hr Documented by: Parenteral Vitamin Supplement 10 ml/ Chromium/Copper/Manganese/Seleni/Zn 1 ml/Potassium Chloride 20 meq/Magnesium Sulfate 1 gm/ Amino Ac/Electrol/Dextrose/Calcium 1,023 mls @ 0 mls/hr IV .Q0M ONE; Protocol Stop: 11/23/18 19:01 Potassium Chloride 20 meq/Magnesium Sulfate 1 gm/ Amino Ac/Electrol/Dextrose/Calcium 1,012 mls @ 0 mls/hr IV .Q0M ONE; Protocol Stop: 11/24/18 01:31 Insulin Aspart (Novolog) 0 unit SQ ACHS COUNTS INCLUDE 234 BEDS AT THE [facility]; Protocol Last Admin: 11/23/18 11:52 Dose: 4 unit Documented by: Melatonin (Melatonin) 3 mg PO HS COUNTS INCLUDE 234 BEDS AT THE [facility] Last Admin: 11/22/18 21:05 Dose: 3 mg Documented by: Metoprolol Tartrate (Lopressor) 12.5 mg PO BID PRN PRN Reason: Blood Pressure - High Miscellaneous Information (Pharmacy To Dose Iv Vancomycin) 0 each MISCELLANE DIRECTED PRN PRN Reason: PHARMACY PROTOCOL Miscellaneous Information (Magnesium Per Protocol) 1 each MISCELLANE DAILY PRN; Protocol PRN Reason: Per Protocol Miscellaneous Information (Potassium Per Protocol) 1 each MISCELLANE DAILY PRN; Protocol PRN Reason: Per Protocol Naloxone HCl (Narcan) 0.2 mg IV Q2M PRN PRN Reason: Opioid Reversal Ferrous Gluconate [ Ferrous Gluconate] 325 Mg 325 mg PO BID COUNTS INCLUDE 234 BEDS AT THE [facility] Last Admin: 11/23/18 08:28 Dose: Not Given Documented by: Nystatin (Mycostatin Oral Susp) 500,000 unit PO QID COUNTS INCLUDE 234 BEDS AT THE [facility] Last Admin: 11/23/18 15:06 Dose: 500,000 unit Documented by: Ondansetron HCl (Zofran) 4 mg IVP Q8HR PRN PRN Reason: Nausea And Vomiting Quetiapine Fumarate (Seroquel) 50 mg PO [facility] Last Admin: 11/22/18 21:45 Dose: 50 mg Documented by: Sertraline HCl (Zoloft) 150 mg PO DAILY COUNTS INCLUDE 234 BEDS AT THE [facility] Last Admin: 11/23/18 08:39 Dose: 150 mg Documented by: Tacrolimus (Prograf) 3 mg PO BID COUNTS INCLUDE 234 BEDS AT THE [facility] Last Admin: 11/23/18 08:38 Dose: 3 mg Documented by: Trazodone HCl (Desyrel) 100 mg PO [facility] Last Admin: 11/22/18 21:45 Dose: 100 mg Documented by: Trimethoprim/Sulfamethoxazole (Bactrim Ds) 0.5 each PO MoWeFr@0900 COUNTS INCLUDE 234 BEDS AT THE [facility] Last Admin: 11/21/18 10:53 Dose: 0.5 each Documented by: Physical examination: VITAL SIGNS: 98.5, 82, 16, 118/70, 95% room air GENERAL: Laying in bed, comfortable. EYES: Pupils equal. Conjunctiva pale. HEENT: External appearance of nose and ears normal, oral cavity dry. NECK: JVD not raised; masses not palpable. HEART: First and second heart sounds are normal; no edema. LUNGS: Respiratory rate increased, decreased breath sounds. ABDOMEN: Multiple abdominal wall fistulas with ostomy bag., Ileostomy bag. PSYCH: Alert and oriented x3; mood and affect anxiousl. Investigations: White count 13 bilirubin 8.9 potassium 3.6 creatinine 0.79 Admission labs White count 19.9 hemoglobin 98.3 platelets 295 Potassium 4.1 creatinine 0.97 Lipase 511 Assessment: -Acute pancreatitis, improving POA -COPD in an ex-smoker -Fall been transplant in 2002 including the small bowel, pancreas, duodenum and stomach done at the [facility] -Multiple abdominal fistulas with ostomy bag being followed at [facility] -[facility] -Chronic gastroparesis -Chronic venous intake vein thrombosis -Immunosuppressed age -Chronic kidney disease stage III from nephrosclerosis -Ileostomy Plan: We'll cut back the Dilaudid to 1 mg every 4. Patient is put on clear liquids. Will resume home dose of methadone starting tonight.
[2018-11-23 17:10] LABS: Glucose,Whole Blood 102 mg/dL (75-99)
[2018-11-23] MEDS ORDERED: MVI, ADULT NO.4 WITH VIT K 10 ML, TRACE (CONC-1ML/DOSE) 1 ML, POTASSIUM CHLORIDE 20 MEQ... IV ONE ×5 (19:00)
[2018-11-23] MEDS: OCTREOTIDE 500 MCG in SODIUM CHLORIDE 0.9% 250 ML IV SCH (19:10)
[2018-11-23] MEDS: METHADONE 5 MG TAB PO SCH (20:17)
[2018-11-23] MEDS: QUEtiapine 50 MG TAB PO SCH (20:18)
[2018-11-23] MEDS: clonazePAM 0.5 MG TAB PO SCH (20:18)
[2018-11-23] MEDS: MELATONIN 3 MG TABLET PO SCH (20:18)
[2018-11-23] MEDS: traZODone HCL 100 MG TAB PO SCH (20:19)
[2018-11-23 20:25] LABS: Glucose,Whole Blood 196 mg/dL (75-99)
[2018-11-24] MEDS: HYDROmorphone 1 MG/ML 1 ML SYRINGE IVP PRN ×7 (00:31→22:11)
[2018-11-24] MEDS: INSULIN ASPART (NovoLOG) 100 UNIT/ML VIAL SQ SCH ×4 (00:32→17:38)
[2018-11-24 00:37] LABS: Glucose,Whole Blood 367 mg/dL (75-99)
[2018-11-24] MEDS ORDERED: INSULIN ASPART (NovoLOG) 100 UNIT/ML VIAL SQ ONE (00:42)
[2018-11-24] MEDS ORDERED: MAGNESIUM SULFATE IV ONE (01:30)
[2018-11-24] MEDS ORDERED: POTASSIUM CHLORIDE IV ONE (01:30)
[2018-11-24] MEDS ORDERED: [UNRECOGNIZED DRUG - OTHER] IV ONE (01:30)
[2018-11-24 02:13] LABS: Glucose,Whole Blood 300 mg/dL (75-99)
[2018-11-24 04:53] LABS: Anisocytosis Slight; Basophils % (A) 0 %; Eosinophils % (A) 0 %; HCT 26.7 % (39.0-53.0); Hypochromasia Marked; Lymphocytes # (A) 1.1 k/uL (1.0-4.8); Lymphocytes % (A) 9 %; MCH 27.1 pg (25.0-35.0); MCHC 29.9 g/dL (31.0-37.0); MCV 90.9 fL (80.0-100.0); Mean Platelet Volume 12.4; Monocytes # (A) 1.7 k/uL (0-1.0); Monocytes % (A) 14 %; Neutrophils # (A) 9.6 k/uL (1.3-7.7); Neutrophils % (A) 75 %; Platelet Count 227 k/uL (150-450); Poikilocytosis Moderate; RBC 2.94 m/uL (4.30-5.90); RDW 17.5 % (11.5-15.5); WBC 12.7 k/uL (3.8-10.6)
[2018-11-24 05:12] LABS: Ionized Calcium 4.9 mg/dL (4.5-5.3)
[2018-11-24 05:19] LABS: African American GFR (CKD) >90 (>60 ml/min/1.73 sqM); Albumin 2.3 g/dL (3.5-5.0); Anion Gap 3 mmol/L; Blood Urea Nitrogen 36 mg/dL (9-20); Calcium 8.1 mg/dL (8.4-10.2); Carbon Dioxide 33 mmol/L (22-30); Chloride 101 mmol/L (98-107); Magnesium 2.8 mg/dL (1.6-2.3); Phosphorus 5.2 mg/dL (2.5-4.5); Potassium 5.9 mmol/L (3.5-5.1); Sodium 137 mmol/L (137-145)
[2018-11-24 05:24] LABS: Vancomycin,Random 14.6 ug/mL
[2018-11-24] MEDS: HYDROCORTISONE SUCCINATE 100 MG/2 ML VIAL IV SCH ×3 (05:26→22:09)
[2018-11-24] MEDS: SODIUM CHLORIDE 0.9% 1,000 ML IV SCH ×2 (05:28→22:23)
[2018-11-24] MEDS: OCTREOTIDE 500 MCG in SODIUM CHLORIDE 0.9% 250 ML IV SCH (05:28)
[2018-11-24 05:30] LABS: Glucose 737 mg/dL (74-99)
[2018-11-24 05:47] LABS: Glucose,Whole Blood 293 mg/dL (75-99)
[2018-11-24 06:04] LABS: Glucose 281 mg/dL (74-99)
[2018-11-24 06:24] LABS: ALT 27 U/L (21-72); AST 20 U/L (17-59); African American GFR (CKD) >90 (>60 ml/min/1.73 sqM); Albumin 2.3 g/dL (3.5-5.0); Alkaline Phosphatase 161 U/L (38-126); Anion Gap 4 mmol/L; Blood Urea Nitrogen 40 mg/dL (9-20); Calcium 8.1 mg/dL (8.4-10.2); Carbon Dioxide 34 mmol/L (22-30); Chloride 104 mmol/L (98-107); Sodium 142 mmol/L (137-145); Total Bilirubin 0.3 mg/dL (0.2-1.3); Total Protein 4.7 g/dL (6.3-8.2)
[2018-11-24 07:01] LABS: Glucose,Whole Blood 268 mg/dL (75-99)
[2018-11-24] MEDS: SYMBICORT 160-4.5 MCG INHALER INHALATION SCH ×2 (07:28→19:22)
[2018-11-24] MEDS: ERGOCALCIFEROL 50,000 UNIT CAP PO SCH (08:51)
[2018-11-24] MEDS: BACLOFEN 10 MG TAB PO SCH ×3 (08:51→22:10)
[2018-11-24] MEDS: METHADONE 10 MG TAB PO SCH (08:52)
[2018-11-24] MEDS: GABAPENTIN 400 MG CAP PO SCH ×3 (08:52→22:10)
[2018-11-24] MEDS: NYSTATIN 100,000 UNIT/ML SUSP 500,000 UNIT/5 ML CUP PO SCH ×4 (09:09→22:25)
[2018-11-24] MEDS: SERTRALINE 100 MG TAB PO SCH (09:09)
[2018-11-24] MEDS: SULFAMETHOX-TMP 800-160MG 1 EACH TAB PO SCH (09:10)
[2018-11-24] MEDS: TACROLIMUS 1 MG CAP PO SCH ×2 (09:11→22:10)
[2018-11-24 09:32] LABS: Magnesium 2.1 mg/dL (1.6-2.3); Phosphorus 3.4 mg/dL (2.5-4.5)
--- NOTE | 2018-11-24 09:58 | P.PN ---
Subjective Progress Note Date: 11/24/18 Principal diagnosis: Acute pancreatitis This is a very pleasant 48-year-old gentleman who follows with Dr. Zhao as his primary care physician. 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 He is also well-known to Dr. Daniels from previous admissions. He is a recipient of small bowel, stomach and pancreatic transplantation, who is coming in for another admission for abdominal pain. The patient has had bouts of recurrent pancreatitis and at time of this current admission acute pancreatitis was again diagnosed. He has multiple abdominal enterocutaneous fistulas. His condition is been essentially followed up at the [facility]. The patient spent at least 90 days recently at the [facility] during which he had undergone 3 abdominal surgeries and he tells that the ultimate plan is to take off all of these fistulas and be considered for another surgical intervention at a later stage. He will be in contact with the surgeon there on December 08 and probable surgery shortly thereafter. The plan is to possibly remove the entire small bowel. He is on TPN for nutritional support. After his last admission here just here in October with subsequent transfer to the [facility]. No interventions were performed then. He is on long-term immunosuppression with Prograf and the patient has been taking Bactrim 3 times a week. He presented here to the emergency room on 10/20/2018 with complaints of recurrent abdominal pain again felt to be in acute pancreatitis. Alk phos 190, amylase 262, lipase 900 improved to 511. He was to be receiving octreotide daily and was transferred here to the intensive care unit today 11/22/2018 as they're unable to infuse it on the floor. He is currently awake and alert in no acute distress. Abdominal pain is minimal. No shortness of breath cough or mayte estion. He's on room air. He is hemodynamically stable. No significant blood noted out of fistulas. His current hemoglobin is 8.2. Count 15.1. Creatinine 0.92. Glucose 156. He is currently on vancomycin. Reevaluated today on 11/23/2018, patient remains in the ICU, he is doing much better, his abdominal pain is almost completely resolved. Patient denies any nausea vomiting, denies any fever or chills, remains on TPN for nutritional support asking to have popsicles today, and he usually eats that at home.WBC count is 13.0 today hemoglobin is 8.9. Electrodes are normal renal profile is normal blood sugar is a bit elevated at C4 3, and his lipase is significantly down to 165.no hemodynamic issues over the last 24 hours.and again his pain is basically resolved. The patient is seen today 11/24/2017 in follow-up in the intensive care unit. He remains awake and alert in no acute distress. No significant abdominal pain this morning. No nausea vomiting. No acute bleeding. He is maintaining good O2 saturations in the 90s on room air. He's been afebrile. Hemodynamically stable. Count 12.7. Hemoglobin 8.0. Creatinine 0.75. Glucose 281. He remains on Symbicort, IV Solu-Cortef, octreotide, TPN. Antibiotics in the form of vancomycin and maintenance Bactrim. Objective - Vital Signs Vital signs: Vital Signs Temp 98.7 F 11/24/18 04:00 Pulse 78 11/24/18 09:00 Resp 12 11/24/18 09:00 BP 131/71 11/24/18 09:00 Pulse Ox 95 11/24/18 09:00 Intake & Output 11/23/18 11/24/18 11/24/18 18:59 06:59 18:59 Intake Total 1313 2875 422 Output Total 2850 3430 100 Balance -1537 -555 322 Weight 83.8 kg Intake: IV 1063 1750 247 Amino Acid 5%-D15w+Lytes* 263 1050 E* 1,000 ml @ Per Protocol IV .Q0M ONE Rx#: [id number] Octreotide 500 mcg In 50 550 100 Sodium Chloride 0.9% 250 ml @ 50 MCG/HR 25 mls/hr IV .Q10H [facility] Rx#: [id number] Sodium Chloride 0.9% 1, 750 150 147 000 ml @ 75 mls/hr IV . [id number] [facility] Rx#:[id number] Intake, IV Titration 250 1125 175 Amount Octreotide 500 mcg In 250 250 Sodium Chloride 0.9% 250 ml @ 50 MCG/HR 25 mls/hr IV .Q10H [facility] Rx#: [id number] Potassium Chloride 20 meq 875 175 Magnesium Sulfate gm 1 gm In Amino Acid 5%-D15w+ Lytes*E* 1,000 ml @ Per Protocol IV .Q0M [facility] Rx#: [id number] Output: Gastric Drainage 2500 2000 Urine 350 730 100 Stool 700 Other: Voiding Method Urinal Urinal - Exam Physical Exam: Pleasant 48-year-old male patient, in no distress. On room air. Head exam atraumatic, normocephalic. Neck was supple and without jugular venous distension, thyromegaly, or carotid bruits. Carotids were easily palpable bilaterally. There was no adenopathy. Lungs symmetrical chest expansion, clear breath sounds bilaterally. Heart sounds are irregular and tachycardic consistent with atrial fibrillation . Abdomen shows multiple enterocutaneous fistula over the anterior abdominal wall and there is minimal bloody output from the abdominal wall surface. The patient has also a gastrocutaneous fistula at the site of the previous G-tube insertion. There is also a ileostomy over the right lower quadrant of the abdomen that has put out only minimal amount over the past few days. No significant distention. Examination of the extremities revealed easily palpable radial, femoral and pedal pulses. There was no cyanosis, clubbing or edema. Examination of the skin revealed no evidence of significant rashes, Psychiatric:normal mood and affect, normal mental status. Musculoskeletal:no weaknesses or deformities, range of motion is intact Lymphatics: No lymphadenopathy was appreciated. - Labs CBC & Chem 7: 11/24/18 04:46 11/24/18 05:40 Labs: Abnormal Lab Results - Last 24 Hours (Table) 11/23/18 11/23/18 11/23/18 Range/Units 11:51 16:59 20:14 WBC (3.8-10.6) k/uL RBC (4.30-5.90) m/uL Hgb (13.0-17.5) gm/dL Hct (39.0-53.0) % MCHC (31.0-37.0) g/dL RDW (11.5-15.5) % Neutrophils # (1.3-7.7) k/uL Monocytes # (0-1.0) k/uL Potassium (3.5-5.1) mmol/L Carbon Dioxide (22-30) mmol/L BUN (9-20) mg/dL Glucose (74-99) mg/dL POC Glucose (mg/dL) 172 H 102 H 196 H (75-99) mg/dL Calcium (8.4-10.2) mg/dL Phosphorus (2.5-4.5) mg/dL Magnesium (1.6-2.3) mg/dL Alkaline Phosphatase (38-126) U/L Total Protein (6.3-8.2) g/dL Albumin (3.5-5.0) g/dL 11/24/18 11/24/18 11/24/18 Range/Units 00:26 02:01 04:46 WBC (3.8-10.6) k/uL RBC (4.30-5.90) m/uL Hgb (13.0-17.5) gm/dL Hct (39.0-53.0) % MCHC (31.0-37.0) g/dL RDW (11.5-15.5) % Neutrophils # (1.3-7.7) k/uL Monocytes # (0-1.0) k/uL Potassium 5.9 H (3.5-5.1) mmol/L Carbon Dioxide 33 H (22-30) mmol/L BUN 36 H (9-20) mg/dL Glucose 737 H* (74-99) mg/dL POC Glucose (mg/dL) 367 H 300 H (75-99) mg/dL Calcium 8.1 L (8.4-10.2) mg/dL Phosphorus 5.2 H (2.5-4.5) mg/dL Magnesium 2.8 H (1.6-2.3) mg/dL Alkaline Phosphatase (38-126) U/L Total Protein (6.3-8.2) g/dL Albumin 2.3 L (3.5-5.0) g/dL 11/24/18 11/24/18 11/24/18 Range/Units 04:46 05:36 05:40 WBC 12.7 H (3.8-10.6) k/uL RBC 2.94 L (4.30-5.90) m/uL Hgb 8.0 L (13.0-17.5) gm/dL Hct 26.7 L (39.0-53.0) % MCHC 29.9 L (31.0-37.0) g/dL RDW 17.5 H (11.5-15.5) % Neutrophils # 9.6 H (1.3-7.7) k/uL Monocytes # 1.7 H (0-1.0) k/uL Potassium (3.5-5.1) mmol/L Carbon Dioxide 34 H (22-30) mmol/L BUN 40 H (9-20) mg/dL Glucose 281 H (74-99) mg/dL POC Glucose (mg/dL) 293 H (75-99) mg/dL Calcium 8.1 L (8.4-10.2) mg/dL Phosphorus (2.5-4.5) mg/dL Magnesium (1.6-2.3) mg/dL Alkaline Phosphatase 161 H (38-126) U/L Total Protein 4.7 L (6.3-8.2) g/dL Albumin 2.3 L (3.5-5.0) g/dL 11/24/18 Range/Units 06:50 WBC (3.8-10.6) k/uL RBC (4.30-5.90) m/uL Hgb (13.0-17.5) gm/dL Hct (39.0-53.0) % MCHC (31.0-37.0) g/dL RDW (11.5-15.5) % Neutrophils # (1.3-7.7) k/uL Monocytes # (0-1.0) k/uL Potassium (3.5-5.1) mmol/L Carbon Dioxide (22-30) mmol/L BUN (9-20) mg/dL Glucose (74-99) mg/dL POC Glucose (mg/dL) 268 H (75-99) mg/dL Calcium (8.4-10.2) mg/dL Phosphorus (2.5-4.5) mg/dL Magnesium (1.6-2.3) mg/dL Alkaline Phosphatase (38-126) U/L Total Protein (6.3-8.2) g/dL Albumin (3.5-5.0) g/dL Assessment and Plan Assessment: Impression: #1 Acute pancreatitis with elevated lipase which is recurrent and secondary abdominal pain. The patient is on TPN for nutritional support. He is status po st cholecystectomy not noted on previous CAT scans. #2 Several enterocutaneous fistulas with a history of bleeding. The patient is to be on octreotide daily and was transferred here to the intensive care unit today for the same. Current hemoglobin 8.2. The patient is a recipient of a multiorgan transplantation including the small bowel with complicated bowel disease, multiple surgeries with the subsequent development of altered bowel enterocutaneous fistulas. There is also a gastrocutaneous fistula and ileostomy in place. #3 History of atrial fibrillation. #4 TPN for nutritional support. #5 Chronic obstructive pulmonary disease, currently inactive and stable. On Symbicort and pro-air in the outpatient setting. #6 Previous tobacco dependence. #7 Multiple visceral organ transplantation including stomach, small bowel and pancreas. #8 Chronic pancreatitis, requiring insertion of a pancreatic stent and the patient is currently on enzyme supplements. #9 Chronic immunosuppression maintained on Prograf. #10 Chronic adrenal insufficiency maintained on Cortef. #11 Previous hospitalizations for GI bleed including 11/11/2018 with subsequent transfer to [facility]. No interventions performed. #12 Gastroparesis. #13 Chronic renal failure. Near #14 Chronic anemia secondary to renal failure. #15 Previous history of MRSA. #16 Depression. Plan: The patient was seen and evaluated by Dr. Redmond. He is cleared for discharge from the pulmonary and critical care standpoint. Continue Symbicort and albuterol. Abdominal pain has improved. The plan is for him to follow-up with his surgeon out of [facility] on 11/07/2018. He follows with Dr. Daniels in our office as well. I, the cosigning physician, performed a history & physical examination of the patient. Lungs sounds are clear. Maintaining good O2 saturations in the 90s on room air. I discussed the assessment and plan of care with my nurse practitioner, Zenobia Haney. I attest to the above progress note as dictated by her.
[2018-11-24] MEDS: FERROUS GLUCONATE 325 MG PO SCH ×2 (11:00→20:00)
[2018-11-24 11:03] VITALS: BMI 23.7
[2018-11-24] MEDS: VANCOMYCIN 1,250 MG in SODIUM CHLORIDE 0.9% 250 ML IVPB SCH (11:03)
[2018-11-24 11:56] LABS: Glucose,Whole Blood 94 mg/dL (75-99)
[2018-11-24 11:59] LABS: Amylase 88 U/L (30-110)
--- NOTE | 2018-11-24 12:46 | P.PN ---
Subjective Progress Note Date: 11/24/18 CHIEF COMPLAINT: Abdominal fistula HISTORY OF PRESENT ILLNESS: Patient seen and examined this morning at the bedside. Patient reports he had increased abdominal pain overnight but it has improved this morning. TPN infusing. Tolerating clear liquid diet. PHYSICAL EXAM: VITAL SIGNS: Reviewed. GENERAL: Well-developed in no acute distress. HEENT: No sclera icterus. Extraocular movements grossly intact. Moist buccal mucosa. Head is atraumatic, normocephalic. ABDOMEN: Soft. Nondistended. Multiple enterocutaneous fistulas with large appliance noted. Ostomy to right side of abdomen with minimal stool output. NEUROLOGIC: Alert and oriented. Cranial nerves II through XII grossly intact. ASSESSMENT: 1. Acute on chronic pancreatitis 2. Multiple enterocutaneous fistulas PLAN: 1. Continue clear liquid. Continue TPN 2. Patient states he has a follow-up appointment with his surgeon at [facility] later this month and patient reports the plan is to remove his entire small bowel. Agreeable for patient to follow up at [facility]. No surgical intervention currently recommended. Nurse practitioner note has been reviewed by physician. Signing provider agrees with the documented findings, assessment, and plan of care. Objective - Vital Signs Vital signs: Vital Signs Temp 98.6 F 11/24/18 08:00 Pulse 86 11/24/18 11:00 Resp 13 11/24/18 11:00 BP 137/69 11/24/18 11:00 Pulse Ox 95 11/24/18 11:00 Intake & Output 11/23/18 11/24/18 11/24/18 18:59 06:59 18:59 Intake Total 1313 2875 872 Output Total 2850 3430 1350 Balance -1537 -555 -478 Weight 83.8 kg 83.8 kg Intake: IV 1063 1750 697 Amino Acid 5%-D15w+Lytes* 263 1050 E* 1,000 ml @ Per Protocol IV .Q0M [facility] Rx#: [id number] Octreotide 500 mcg In 50 550 150 Sodium Chloride 0.9% 250 ml @ 50 MCG/HR 25 mls/hr IV .Q10H [facility] Rx#: [id number] Sodium Chloride 0.9% 1, 750 150 297 000 ml @ 75 mls/hr IV . [id number] [facility] Rx#:[id number] Vancomycin 1,250 mg In 250 Sodium Chloride 0.9% 250 ml @ 125 mls/hr IVPB ONCE [facility] Rx#:[id number] Intake, IV Titration 250 1125 175 Amount Octreotide 500 mcg In 250 250 Sodium Chloride 0.9% 250 ml @ 50 MCG/HR 25 mls/hr IV .Q10H [facility] Rx#: [id number] Potassium Chloride 20 meq 875 175 Magnesium Sulfate gm 1 gm In Amino Acid 5%-D15w+ Lytes*E* 1,000 ml @ Per Protocol IV .Q0M [facility] Rx#: [id number] Output: Gastric Drainage 2500 2000 Urine 350 730 350 Stool 700 1000 Other: Voiding Method Urinal Urinal Urinal - Labs CBC & Chem 7: 11/24/18 04:46 11/24/18 05:40 Labs: Abnormal Lab Results - Last 24 Hours (Table) 11/23/18 11/23/18 11/24/18 Range/Units 16:59 20:14 00:26 WBC (3.8-10.6) k/uL RBC (4.30-5.90) m/uL Hgb (13.0-17.5) gm/dL Hct (39.0-53.0) % MCHC (31.0-37.0) g/dL RDW (11.5-15.5) % Neutrophils # (1.3-7.7) k/uL Monocytes # (0-1.0) k/uL Potassium (3.5-5.1) mmol/L Carbon Dioxide (22-30) mmol/L BUN (9-20) mg/dL Glucose (74-99) mg/dL POC Glucose (mg/dL) 102 H 196 H 367 H (75-99) mg/dL Calcium (8.4-10.2) mg/dL Phosphorus (2.5-4.5) mg/dL Magnesium (1.6-2.3) mg/dL Alkaline Phosphatase (38-126) U/L Total Protein (6.3-8.2) g/dL Albumin (3.5-5.0) g/dL 11/24/18 11/24/18 11/24/18 Range/Units 02:01 04:46 04:46 WBC 12.7 H (3.8-10.6) k/uL RBC 2.94 L (4.30-5.90) m/uL Hgb 8.0 L (13.0-17.5) gm/dL Hct 26.7 L (39.0-53.0) % MCHC 29.9 L (31.0-37.0) g/dL RDW 17.5 H (11.5-15.5) % Neutrophils # 9.6 H (1.3-7.7) k/uL Monocytes # 1.7 H (0-1.0) k/uL Potassium 5.9 H (3.5-5.1) mmol/L Carbon Dioxide 33 H (22-30) mmol/L BUN 36 H (9-20) mg/dL Glucose 737 H* (74-99) mg/dL POC Glucose (mg/dL) 300 H (75-99) mg/dL Calcium 8.1 L (8.4-10.2) mg/dL Phosphorus 5.2 H (2.5-4.5) mg/dL Magnesium 2.8 H (1.6-2.3) mg/dL Alkaline Phosphatase (38-126) U/L Total Protein (6.3-8.2) g/dL Albumin 2.3 L (3.5-5.0) g/dL 11/24/18 11/24/18 11/24/18 Range/Units 05:36 05:40 06:50 WBC (3.8-10.6) k/uL RBC (4.30-5.90) m/uL Hgb (13.0-17.5) gm/dL Hct (39.0-53.0) % MCHC (31.0-37.0) g/dL RDW (11.5-15.5) % Neutrophils # (1.3-7.7) k/uL Monocytes # (0-1.0) k/uL Potassium (3.5-5.1) mmol/L Carbon Dioxide 34 H (22-30) mmol/L BUN 40 H (9-20) mg/dL Glucose 281 H (74-99) mg/dL POC Glucose (mg/dL) 293 H 268 H (75-99) mg/dL Calcium 8.1 L (8.4-10.2) mg/dL Phosphorus (2.5-4.5) mg/dL Magnesium (1.6-2.3) mg/dL Alkaline Phosphatase 161 H (38-126) U/L Total Protein 4.7 L (6.3-8.2) g/dL Albumin 2.3 L (3.5-5.0) g/dL
--- NOTE | 2018-11-24 13:13 | XR ---
EXAMINATION TYPE: XR humerus LT DATE OF EXAM: 11/24/2018 COMPARISON: NONE HISTORY: Swelling and redness TECHNIQUE: 2 views submitted. FINDINGS: The osseous structures are intact and the joint spaces are preserved. IMPRESSION: 1. No acute fracture or dislocation.
--- NOTE | 2018-11-24 13:19 | US ---
"EXAMINATION TYPE: US venous doppler duplex UE LT DATE OF EXAM: 11/24/2018 COMPARISON: US 07/22/2017 CLINICAL HISTORY: fall, swelling, lumps, redness. ICU pt with left arm bruising, redness and pain s/p partial fall and aide grabbing pt's arm, known prev DVT left arm in 2018/ pt not on blood thinners x 2 weeks SIDE PERFORMED: LEFT Grayscale, color doppler, spectral doppler imaging performed of the deep veins of the upper extremiti es. There is normal flow, compressibility and vascular waveforms. Left Arm: +Non-occluding thrombus within left IJV, Subclavian vein difficult to visualize but no bloo d flow could be appreciated, non-occluding thrombus within left axillary vein/ Occluding thrombus within brachial and ulnar veins which is new when compared to previous/ left posterior arm where pt has redness and pain shows superficial thrombophlebitis within left basil ic vein IMPRESSION: 1. Positive incompletely occlusive thrombus in the left internal jugular vein, subclavian vein, axill leobardo vein, brachial vein, and ulnar vein (thrombus within the brachial and ulnar veins are new from th e prior). 2. Superficial venous thrombosis within the left basilic vein in the area of redness and pain. A Yellow level critical message alert has been initiated for Angel Swanson MD via the [employer] [facility] 0 | Critical Results System on 11/24/2018 1:16 PM. This message alert has been sent to Angel Swanson MD via the preferences provided by the clinician for the receipt of Radiology Critical Findings. Mess age ID [id number]."
[2018-11-24] MEDS: HYDROcodone/APAP 10-325MG 1 EACH TAB PO PRN (14:54)
[2018-11-24 17:46] LABS: Glucose,Whole Blood 169 mg/dL (75-99)
--- NOTE | 2018-11-24 18:39 | CONS ---
DATE OF CONSULTATION: 11/24/2018 This is a 48-year-old pleasant gentleman who has been admitted to the intensive care unit with multiple problems. I was consulted for DVT of the left arm. The patient has a history of DVT for the last 10 years and he has been on Coumadin and Lovenox on and off. The patient noticed some swelling in the left upper arm and the patient had an ultrasound done which showed there is a non-occluded clot in the internal jugular vein vein and subclavian vein, and there is a thrombus noted in the brachial vein and superficial thrombophlebitis of the left upper arm superficial vein, basilic vein and cephalic vein. The patient has a history of multiple surgeries done at [facility] and the patient has multiple fistulas due abdominal surgery which are enterocutaneous fistulas. There was some bleeding, but right now the patient has no evidence of any more bleeding. The patient is going to go back to [facility] for another surgical intervention for transplant of the small bowel and stomach. PHYSICAL EXAMINATION: Patient was seen in his room. NECK: Supple. CHEST: Clear. The patient has some redness noted on the left upper arm with no vascular compromise. Radial pulses are present which are consistent with new onset of superficial thrombophlebitis of the left arm. RECOMMENDATION: The patient is going home tomorrow and he will contact [facility]. I told him to send them the recent report of the ultrasound which was done at [facility]; and in the meantime, left arm elevation and warm soaks on the arm. 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 I have discussed the case with Dr. Swanson and Dr. Mortensen. MMODL / CRISTELAN: [id number] / CA
[2018-11-24] MEDS ORDERED: MVI, ADULT NO.4 WITH VIT K 10 ML, TRACE (CONC-1ML/DOSE) 1 ML, POTASSIUM CHLORIDE 20 MEQ... IV ONE ×5 (19:00)
[2018-11-24] MEDS: METHADONE 5 MG TAB PO SCH (20:02)
[2018-11-24] MEDS: MELATONIN 3 MG TABLET PO SCH (20:02)
[2018-11-24] MEDS: clonazePAM 0.5 MG TAB PO SCH (20:02)
--- NOTE | 2018-11-24 21:53 | P.PN ---
Progress Note - Text Progress Note Date: 11/24/18 Chief Complaint: Abdominal pain Interval history: This is a 48-year-old patient of Dr. Ras Zhao. Patient rather extensive complicated medical history. Patient had a multivisceral transplant in [place] including a mesenteric vein graft followed by presenting graft thrombosis and subsequent gastroparesis. Patient had been on anticoagulation. 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 The patient has gotten a little insufficiency, chronic anemia and for organ transplant in 2002 including small bowel, pancreas, duodenum and stomach in [place]. Patient also had valvular cardiac surgery done. Patient also had bowel does high since and abdomen had to be opened up with the same. Patient also developed multiple abdominal fistulas and food was coming out of the same. Patient was taken to [facility]. Patient's had multiple surgeries for the same. Including no having an ileostomy bag. Patient does get repeated attacks of pancreatitis.. Patient was in the hospital and discharge order week ago when his present with GI bleed. Initially patient did not want to be transferred to [facility] but then had to be transferred because he became unstable. Now yet again patient presents with increasing abdominal pain. He does get TPN and lipids throughout [place] line. Patient is here with his and his mother. Refuses to get transferred to [facility]. Was to get treated here. Understanding well the surgeon said cannot do any surgical intervention on him. Patient also stated that he is supposed of organ transplant that is including his duodenum small bowel yet again. Had some nausea. No fever no chills. Being admitted for the same. Admitted with acute pancreatitis Today-Acute pancreatitis, biochemically resolved. Patient's complaining more of pain in his fistulas. Wanted his Dilaudid to be increased. I did explain to the patient at length that if fistulas and giving a problem she needs to get transferred back to tertiary transplant center. Patient does not want the mao e.. I did explained to him at length that I cannot and guesswork give her more Dilaudid. What it awoke intra-abdominal complications. Specially no surgeon here P able to handle that. Patient is requesting the Dilaudid to be made every 3 hours from 4 hours and is finally agreed to go home tomorrow or get transferred to [facility] if pain is not better by tomorrow. Patient's mother was present at the bedside. Review of systems: Was done for constitutional, cardiovascular, GI, pulmonary. relevant finding as above Active Medications Hydrocodone Bitart/Acetaminophen (Humble 10) 1 each PO Q4HR PRN PRN Reason: Pain Last Admin: 11/24/18 14:54 Dose: 1 each Documented by: Baclofen (Lioresal) 10 mg PO TID [facility] Last Admin: 11/24/18 15:59 Dose: 10 mg Documented by: Budesonide/Formoterol Fumarate (Symbicort 160-4.5 Mcg Inhaler) 2 puff INHALATION RT-BID [facility] Last Admin: 11/24/18 19:22 Dose: 2 puff Documented by: Clonazepam (Klonopin) 0.25 mg PO HS [facility] Last Admin: 11/24/18 20:02 Dose: 0.25 mg Documented by: Ergocalciferol (Vitamin D2) 50,000 unit PO MoWeFr@0900 [facility] Last Admin: 11/24/18 08:51 Dose: 50,000 unit Documented by: Gabapentin (Neurontin) 1,200 mg PO TID [facility] Last Admin: 11/24/18 15:58 Dose: 1,200 mg Documented by: Hydrocortisone Sodium Succinate (Solu-Cortef) 20 mg IV Q8H [facility] Last Admin: 11/24/18 14:49 Dose: 20 mg Documented by: Hydromorphone HCl (Dilaudid) 1 mg IVP Q3HR PRN PRN Reason: Pain Last Admin: 11/24/18 19:08 Dose: 1 mg Documented by: Sodium Chloride (Saline 0.9%) 1,000 mls @ 75 mls/hr IV .[id number] [facility] Last Admin: 11/24/18 05:28 Dose: 75 mls/hr Documented by: Octreotide Acetate 500 mcg/ (Sodium Chloride) 250 mls @ 25 mls/hr IV .Q10H [facility] Last Admin: 11/24/18 05:28 Dose: 50 mcg/hr, 25 mls/hr Documented by: Vancomycin HCl 1,250 mg/ (Sodium Chloride) 250 mls @ 125 mls/hr IVPB Q24H [facility] Last Admin: 11/24/18 11:03 Dose: 125 mls/hr Documented by: Potassium Chloride 20 meq/Magnesium Sulfate 1 gm/ Amino Ac/Electrol/Dextrose/Calcium 1,012 mls @ 0 mls/hr IV .Q0M ONE; Protocol Stop: 11/25/18 01:31 Insulin Aspart (Novolog) 0 unit SQ Q6H [facility]; Protocol Last Admin: 11/24/18 17:38 Dose: 3 unit Documented by: Melatonin (Melatonin) 3 mg PO [facility] Last Admin: 11/24/18 20:02 Dose: 3 mg Documented by: Methadone HCl (Dolophine) 5 mg PO [facility] Last Admin: 11/24/18 20:02 Dose: 5 mg Documented by: Methadone HCl (Dolophine) 10 mg PO QAM [facility] Last Admin: 11/24/18 08:52 Dose: 10 mg Documented by: Metoprolol Tartrate (Lopressor) 12.5 mg PO BID PRN PRN Reason: Blood Pressure - High Miscellaneous Information (Magnesium Per Protocol) 1 each MISCELLANE DAILY PRN; Protocol PRN Reason: Per Protocol Miscellaneous Information (Potassium Per Protocol) 1 each MISCELLANE DAILY PRN; Protocol PRN Reason: Per Protocol Naloxone HCl (Narcan) 0.2 mg IV Q2M PRN PRN Reason: Opioid Reversal Ferrous Gluconate [ Ferrous Gluconate] 325 Mg 325 mg PO BID [facility] Last Admin: 11/24/18 20:00 Dose: Not Given Documented by: Nystatin (Mycostatin Oral Susp) 500,000 unit PO QID [facility] Last Admin: 11/24/18 17:32 Dose: 500,000 unit Documented by: Ondansetron HCl (Zofran) 4 mg IVP Q8HR PRN PRN Reason: Nausea And Vomiting Quetiapine Fumarate (Seroquel) 50 mg PO [facility] Last Admin: 11/23/18 20:18 Dose: 50 mg Documented by: Sertraline HCl (Zoloft) 150 mg PO DAILY [facility] Last Admin: 11/24/18 09:09 Dose: 150 mg Documented by: Tacrolimus (Prograf) 3 mg PO BID [facility] Last Admin: 11/24/18 09:11 Dose: 3 mg Documented by: Trazodone HCl (Desyrel) 100 mg PO [facility] Last Admin: 11/23/18 20:19 Dose: 100 mg Documented by: Trimethoprim/Sulfamethoxazole (Bactrim Ds) 0.5 each PO MoWeFr@0900 [facility] Last Admin: 11/24/18 09:10 Dose: 0.5 each Documented by: Physical examination: VITAL SIGNS: 98.3, 89, 14, 118/72, 95% room air GENERAL: Laying in bed, bit uncomfortable. EYES: Pupils equal. Conjunctiva pale. HEENT: External appearance of nose and ears normal, oral cavity dry. NECK: JVD not raised; masses not palpable. HEART: First and second heart sounds are normal; no edema. LUNGS: Respiratory rate increased, decreased breath sounds. ABDOMEN: Multiple abdominal wall fistulas with ostomy bag., Ileostomy bag. PSYCH: Alert and oriented x3; mood and affect anxiousl. Investigations: Potassium 4 creatinine 0.75 Accu-Cheks noted Amylase 88 lipase 128 Admission labs White count 19.9 hemoglobin 98.3 platelets 295 Potassium 4.1 creatinine 0.97 Lipase 511 Assessment: -Acute recurrent pancreatitis, biochemically improved POA -COPD in an ex-smoker -4 organ transplant in 2002 including the small bowel, pancreas, duodenum and stomach done at the [facility] -Multiple abdominal fistulas with ostomy bag being followed at [facility] -[facility] -Chronic gastroparesis -Chronic venous intake vein thrombosis -Immunosuppressed age -Chronic kidney disease stage III from nephrosclerosis -Ileostomy -Hypoalbuminemia likely a combination of acute phase reactant and mild protein calorie malnutrition Plan: Had a lengthy talk with The patient and mother at the bedside see above. Which is a Dilaudid frequence to every 3 hours. Humble also was also resumed. Plan is either to discharge home tomorrow or transferred to the tertiary center. Total time spent today was about 45 minutes with over 25 minutes in discussion also discussed with the nurse and the block and case maker
[2018-11-24] MEDS: QUEtiapine 50 MG TAB PO SCH (22:11)
[2018-11-24] MEDS: traZODone HCL 100 MG TAB PO SCH (22:12)
[2018-11-25 00:02] LABS: Glucose,Whole Blood 413 mg/dL (75-99)
[2018-11-25] MEDS ORDERED: INSULIN ASPART (NovoLOG) 100 UNIT/ML VIAL SQ ONE (00:03)
[2018-11-25] MEDS: INSULIN ASPART (NovoLOG) 100 UNIT/ML VIAL SQ SCH ×3 (00:06→12:20)
[2018-11-25] MEDS: HYDROmorphone 1 MG/ML 1 ML SYRINGE IVP PRN ×5 (01:17→13:51)
[2018-11-25] MEDS ORDERED: MAGNESIUM SULFATE IV ONE (01:30)
[2018-11-25] MEDS ORDERED: POTASSIUM CHLORIDE IV ONE (01:30)
[2018-11-25] MEDS: HYDROCORTISONE SUCCINATE 100 MG/2 ML VIAL IV SCH ×2 (01:30→09:49)
[2018-11-25] MEDS ORDERED: [UNRECOGNIZED DRUG - OTHER] IV ONE (01:30)
[2018-11-25] MEDS: OCTREOTIDE 500 MCG in SODIUM CHLORIDE 0.9% 250 ML IV SCH ×2 (01:47→11:02)
[2018-11-25 05:03] LABS: Anisocytosis Slight; Basophils % (A) 0 %; Eosinophils % (A) 0 %; HCT 26.2 % (39.0-53.0); HGB 8.4 gm/dL (13.0-17.5); Hypochromasia Marked; Lymphocytes # (A) 1.2 k/uL (1.0-4.8); Lymphocytes % (A) 7 %; MCH 28.2 pg (25.0-35.0); MCHC 32.1 g/dL (31.0-37.0); MCV 87.8 fL (80.0-100.0); Monocytes # (A) 1.9 k/uL (0-1.0); Monocytes % (A) 12 %; Neutrophils # (A) 13.1 k/uL (1.3-7.7); Neutrophils % (A) 80 %; Platelet Count 230 k/uL (150-450); Poikilocytosis Moderate; RBC 2.98 m/uL (4.30-5.90); RDW 17.4 % (11.5-15.5); WBC 16.4 k/uL (3.8-10.6)
[2018-11-25 05:18] LABS: ALT 32 U/L (21-72); AST 24 U/L (17-59); African American GFR (CKD) >90 (>60 ml/min/1.73 sqM); Albumin 2.5 g/dL (3.5-5.0); Alkaline Phosphatase 188 U/L (38-126); Amylase 99 U/L (30-110); Anion Gap 5 mmol/L; Blood Urea Nitrogen 38 mg/dL (9-20); Calcium 8.4 mg/dL (8.4-10.2); Carbon Dioxide 35 mmol/L (22-30); Chloride 104 mmol/L (98-107); Glucose 252 mg/dL (74-99); Magnesium 2.2 mg/dL (1.6-2.3); Phosphorus 3.2 mg/dL (2.5-4.5); Potassium 4.2 mmol/L (3.5-5.1); Sodium 144 mmol/L (137-145); Total Bilirubin 0.3 mg/dL (0.2-1.3); Total Protein 4.9 g/dL (6.3-8.2)
[2018-11-25 06:31] LABS: Glucose,Whole Blood 281 mg/dL (75-99)
[2018-11-25] MEDS: SYMBICORT 160-4.5 MCG INHALER INHALATION SCH (07:45)
[2018-11-25 08:38] VITALS: TEMP 98.1
[2018-11-25] MEDS: SODIUM CHLORIDE 0.9% 1,000 ML IV SCH (08:42)
[2018-11-25] MEDS: NYSTATIN 100,000 UNIT/ML SUSP 500,000 UNIT/5 ML CUP PO SCH ×2 (08:43→12:34)
[2018-11-25] MEDS: METHADONE 10 MG TAB PO SCH (08:43)
[2018-11-25] MEDS: FERROUS GLUCONATE 325 MG PO SCH (08:43)
[2018-11-25] MEDS: BACLOFEN 10 MG TAB PO SCH (08:43)
[2018-11-25] MEDS: GABAPENTIN 400 MG CAP PO SCH (08:43)
[2018-11-25] MEDS: SERTRALINE 100 MG TAB PO SCH (08:44)
[2018-11-25] MEDS: TACROLIMUS 1 MG CAP PO SCH (08:44)
[2018-11-25] MEDS: VANCOMYCIN 1,250 MG in SODIUM CHLORIDE 0.9% 250 ML IVPB SCH (09:49)
--- NOTE | 2018-11-25 10:00 | PN ---
PROGRESS NOTE DATE OF SERVICE: 11/25/2018 This is a 48-year-old male with a history of acute pancreatitis. The patient presented to the hospital with abdominal discomfort. He has a very significant past medical history. The patient currently has had multiple organ transplantations is in the abdomen including small bowel as well as pancreas. He does have a history of chronic atrial fibrillation, chronic TPN for nutritional support, COPD, previous tobacco from previous tobacco dependence, previous stomach, small bowel and pancreatic transplantation, chronic pancreatitis requiring enzyme replacement and pain management, chronic immunosuppressive therapy with Prograf and other medications, adrenal insufficiency, GI bleed, gastroparesis, chronic renal failure, chronic anemia, previous MRSA infection and chronic depression. The patient apparently was to be discharged yesterday but for months for some reason, was not discharged. The patient does get most of his care and certainly all of his organ transplantation care at the [facility]. The patient is currently mostly here for ongoing pain management. His pain medications were apparently adjusted yesterday by his primary care physician, Dr. Swanson. The patient denies any respiratory issues at this time. His hemodynamic status is stable. His blood pressure is stable. Denies any fever, chills, cough, wheezing, shortness of breath or phlegm production. Most of his life issues relate to abdominal discomfort and back pain. Current vital signs are reviewed. Temperature is 98, heart rate is 80, respiratory rate is 23, blood pressure 112/67 mean 82, room air saturation 96%. He appears in no acute distress. He does look chronically ill. He is pale. HEENT: Examination is grossly unremarkable. No supplemental oxygen noted. Mucous membranes are moist. NECK: Supple. Full range of motion. No adenopathy or thyromegaly. CARDIOVASCULAR: Examination reveals irregular rhythm and rate. It appears that he is in atrial fibrillation. This is a chronic problem for him. No distinct murmur noted. S1, S2 normal. LUNGS: Reveal mostly clear breath sounds. A few scattered mild rhonchi. No wheezes or crackles. ABDOMEN: Shows evidence of multiple enterocutaneous fistulas over the abdominal wall. There is also a gastric cutaneous fistula at the site of the previous G-tube insertion. There is an ileostomy over the right lower quadrant of the abdomen with minimal amount of drainage. EXTREMITIES: Reveal no cyanosis, clubbing, or significant edema. SKIN: Without any rash. NEUROLOGIC: Examination is brief but nonfocal. LAB DATA: Reviewed. White count is 16.4, hemoglobin 8.4, hematocrit 26.2, platelet count 230,000. Sodium, potassium , chloride normal. CO2 of 35, anion gap is 5, BUN and creatinine were 38 and 0.87. Albumin 2.5. Lipase is 121. Microbiologic studies are negative or pending. The patient had a Doppler study and it shows an incompletely occluded thrombus in the left internal jugular vein, subclavian vein, axillary vein, brachial vein and ulnar vein. He also has a superficial venous thrombosis within the left basilic vein. Apparently, [facility] is aware of these abnormalities. Medications are reviewed. Currently, he is still on octreotide at 50 mcg/hour, 0.9 at 10 mL an hour and TPN at 175 mL an hour. The rest of his medications remain about the same. ASSESSMENT: 1. Acute pancreatitis causing abdominal pain, which is reasonably well controlled. 2. Status post cholecystectomy. 3. 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 4. History of chronic atrial fibrillation. 5. History of chronic TPN for nutritional support. 6. Stable chronic obstructive pulmonary disease. 7. Previous tobacco dependence. 8. Status post stomach, small bowel and pancreatic transplantation. 9. History of chronic pancreatitis with chronic pain. 10.Pancreatic exocrine insufficiency with enzyme supplementation. 11.Chronic immunosuppression for previous organ transplantation. 12.Chronic adrenal insufficiency. 13.History of gastrointestinal bleed. 14.Gastroparesis. 15.Chronic renal failure. 16.History of anemia of chronic disease. 17.Previous history of methicillin-resistant Staphylococcus aureus infection. 18.Depression. PLAN: The patient apparently is to be discharged soon. I am not sure if that is today or tomorrow. Apparently his discharge was held because of pain. The patient may be transferred back to [facility]. From the pulmonary standpoint and the current hemodynamic standpoint, the patient is cleared for discharge. He is not requiring any supplemental oxygen. His blood pressure has been stable. His medications have been stable. Will continue to follow. Prognosis is very guarded. MMODL / IJN: [id number] /
[2018-11-25 12:30] LABS: Glucose,Whole Blood 133 mg/dL (75-99)
[2018-11-25] MEDS: HYDROcodone/APAP 10-325MG 1 EACH TAB PO PRN (12:34)
--- NOTE | 2018-11-25 13:19 | P.PN ---
Subjective Progress Note Date: 11/25/18 CHIEF COMPLAINT: Abdominal fistula HISTORY OF PRESENT ILLNESS: Patient seen and examined this morning at the bedside. Patient reports abdominal pain is controlled. TPN infusing. Tolerating clear liquid diet. PHYSICAL EXAM: VITAL SIGNS: Reviewed. GENERAL: Well-developed in no acute distress. HEENT: No sclera icterus. Extraocular movements grossly intact. Moist buccal mucosa. Head is atraumatic, normocephalic. ABDOMEN: Soft. Nondistended. Multiple enterocutaneous fistulas with large appliance noted. Ostomy to right side of abdomen with minimal stool output. NEUROLOGIC: Alert and oriented. Cranial nerves II through XII grossly intact. ASSESSMENT: 1. Acute on chronic pancreatitis 2. Multiple enterocutaneous fistulas PLAN: Patient states he has a follow-up appointment with his surgeon at [facility] later this month and patient reports the plan is to remove his entire sm all bowel. Agreeable for patient to follow up at [facility]. No surgical intervention currently recommended. Agreeable to discharge home today from surgical standpoint. Nurse practitioner note has been reviewed by physician. Signing provider agrees with the documented findings, assessment, and plan of care. Objective - Vital Signs Vital signs: Vital Signs Temp 98.1 F 11/25/18 08:00 Pulse 115 H 11/25/18 12:00 Resp 16 11/25/18 12:00 BP 100/66 11/25/18 12:00 Pulse Ox 92 L 11/25/18 12:00 Intake & Output 11/24/18 11/25/18 11/25/18 18:59 06:59 18:59 Intake Total 2172 2913 1816.25 Output Total 1600 3030 1500 Balance 572 -117 316.25 Weight 83.8 kg 83.9 kg 83.9 kg Intake: IV 1247 615 535 Octreotide 500 mcg In 325 300 150 Sodium Chloride 0.9% 250 ml @ 50 MCG/HR 25 mls/hr IV .[facility]10H [facility] Rx#: [id number] Sodium Chloride 0.9% 1, 672 315 385 000 ml @ 75 mls/hr IV . [id number] [facility] Rx#:[id number] Vancomycin 1,250 mg In 250 Sodium Chloride 0.9% 250 ml @ 125 mls/hr IVPB ONCE ONE Rx#:[id number] Intake, IV Titration 425 1838 481.25 Amount Octreotide 500 mcg In 250 231.25 Sodium Chloride 0.9% 250 ml @ 50 MCG/HR 25 mls/hr IV .Q10H [facility] Rx#: [id number] Potassium Chloride 20 meq 175 Magnesium Sulfate gm 1 gm In Amino Acid 5%-D15w+ Lytes*E* 1,000 ml @ Per Protocol IV .Q0M ONE Rx#: [id number] Potassium Chloride 20 meq 1838 Magnesium Sulfate gm 1 gm In Amino Acid 5%-D15w+ Lytes*E* 1,000 ml @ Per Protocol IV .Q0M ONE Rx#: [id number] Vancomycin 1,250 mg In 250 Sodium Chloride 0.9% 250 ml @ 125 mls/hr IVPB Q24H [facility] Rx#:[id number] Oral 500 460 800 Output: Urine 600 1030 400 Stool 1000 2000 1100 Other: Voiding Method Urinal Urinal Urinal - Labs CBC & Chem 7: 11/25/18 04:30 11/25/18 04:30 Labs: Abnormal Lab Results - Last 24 Hours (Table) 11/24/18 11/24/18 11/25/18 Range/Units 17:34 23:51 04:30 WBC 16.4 H (3.8-10.6) k/uL RBC 2.98 L (4.30-5.90) m/uL Hgb 8.4 L (13.0-17.5) gm/dL Hct 26.2 L (39.0-53.0) % RDW 17.4 H (11.5-15.5) % Neutrophils # 13.1 H (1.3-7.7) k/uL Monocytes # 1.9 H (0-1.0) k/uL Carbon Dioxide (22-30) mmol/L BUN (9-20) mg/dL Glucose (74-99) mg/dL POC Glucose (mg/dL) 169 H 413 H (75-99) mg/dL Alkaline Phosphatase (38-126) U/L Total Protein (6.3-8.2) g/dL Albumin (3.5-5.0) g/dL 11/25/18 11/25/18 11/25/18 Range/Units 04:30 06:19 12:18 WBC (3.8-10.6) k/uL RBC (4.30-5.90) m/uL Hgb (13.0-17.5) gm/dL Hct (39.0-53.0) % RDW (11.5-15.5) % Neutrophils # (1.3-7.7) k/uL Monocytes # (0-1.0) k/uL Carbon Dioxide 35 H (22-30) mmol/L BUN 38 H (9-20) mg/dL Glucose 252 H (74-99) mg/dL POC Glucose (mg/dL) 281 H 133 H (75-99) mg/dL Alkaline Phosphatase 188 H (38-126) U/L Total Protein 4.9 L (6.3-8.2) g/dL Albumin 2.5 L (3.5-5.0) g/dL
[2018-11-25 13:26] VITALS: PULSE 96
[2018-11-25 14:05] VITALS: BP 101/55; RESP 25
--- NOTE | 2018-11-25 15:17 | P.CNOR ---
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 He was admitted to the hospital for acute pancreatitis. Orthopedics was consulted for complaints of pain in the left shoulder. The patient states there was no trauma to the shoulde r, although he did have a fall about 1-2 weeks ago which he landed directly onto his right knee, and he required assistance from a friend to get off the ground. He states his friend grabbed his proximal arms and hoisted him off the floor, and he believes this is the area is he currently experiencing pain. He states his is not having pain in the shoulder joint, but there is a palpable mass that is painful to the touch of the proximal arm. He states he has chronic DVT of the left upper extremity. An ultrasound was ordered on 11/24/18, which revealed a thrombus in the left internal jugular vein, subclavian vein, axillary vein, brachial vein, and ulnar vein. There was also a superficial venous thrombosis within the left basilic vein in the area patient is experiencing erythema and tenderness. X-rays of the right humerus taken on 11/24/18 revealed no acute fractures. He denies pain with left shoulder, elbow range of motion. He notes he experiencing mild right knee pain after the fall, although this has since improved. He denies additional orthopedic complaints at the time of my exam. 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 blood clot in aortic graft History of Any Multi-Drug Resistant Organisms: C-DIFF, ESBL, MRSA Year Discovered:: MRSA sputum 05/29/17 MDRO Source:: C-diff stool 05/11/18 colonized Past Surgical History: Bowel Resection, Cholecystectomy Additional Past Surgical History / Comment(s): Multivisceral organ transplant including bowel, doudenum,pancreas, and stomach [facility],spleen removed, left knee arthrotomy, EGD, colonoscopy, ERCP with insertion of a pancreatic duct stent- since removed . ileostomy in october 2017, dehised x 2, repair of fistula, second fistula appeared may 01, 2018, pt currently has ostomy bag in which fistula drained into, colonized c-diff, MRSA in sputum a year ago, as infant valve surgery, varghese catheter. fistulas returned after attempted repair. Past Anesthesia/Blood Transfusion Reactions: No Reported Reaction Additional Past Anesthesia/Blood Transfusion Reaction / Comm: STATES R/T TO MULTIPLE SX HE REQUIRES A LOT OF MEDICATION for anesthesia. He has had multiple blood transfusions without reaction. Past Psychological History: Anxiety, Depression Additional Psychological History / Comment(s): lives in the family home with his significant other and 2 dogs. Medically disabled. No experience. No extensive travel. Receives his medical care currently at the [facility] Smoking Status: Former smoker Past Alcohol Use History: None Reported Additional Past Alcohol Use History / Comment(s): Started smoking about 1982(off and on) currently only a few ciggarettes a day Past Drug Use History: None Reported - Past Family History Mother History Unknown: Yes Additional Family Medical History / Comment(s): pt is adopted, does not know any hx Father History Unknown: Yes Additional Family Medical History / Comment(s): Pt is adopted and knows no histo ry. Medications and Allergies Home Medications Medication Instructions Recorded Confirmed Type Ferrous Gluconate 325 mg PO BID 09/02/13 11/20/18 History Sertraline [Zoloft] 150 mg PO DAILY 09/02/13 11/20/18 History Albuterol Sulfate [Proair Hfa] 2 puff INHALATION RT-Q6H PRN 12/19/16 11/20/18 History traZODone HCL 100 mg PO HS 12/19/16 11/20/18 History Budesonide/Formoterol Fumarate 2 puff INHALATION RT-BID 05/17/17 11/20/18 History [Symbicort 160-4.5 Mcg Inhaler] Methadone [Dolophine] 10 mg PO QAM 05/17/17 11/20/18 History clonazePAM [Klonopin ODT Wafer] 0.25 mg PO HS 12/12/17 11/20/18 History HYDROcodone/APAP 10-325MG [[place] 1 tab PO Q4H PRN 01/10/18 11/20/18 History 10-325] Methadone [Dolophine] 5 mg PO HS 01/22/18 11/20/18 History Gabapentin 1,200 mg PO TID 06/18/18 11/20/18 History Tacrolimus [Prograf] 3 mg SL BID 07/18/18 11/20/18 History Ergocalciferol [Vitamin D2 50,000 unit PO MOWEFR 11/11/18 11/20/18 History (DRISDOL)] Hydrocortisone Sodium Succ 0.4 ml IV Q8H 11/11/18 11/20/18 History Metoprolol Tartrate [Lopressor] 12.5 mg PO BID PRN 11/11/18 11/20/18 History Nystatin 100,000 Unit/ml Susp 500,000 unit PO QID 11/11/18 11/20/18 History [Mycostatin Oral Susp] QUEtiapine [SEROquel] 50 mg PO HS 11/11/18 11/20/18 History Sulfamethox-Tmp 800-160Mg [Bactrim 0.5 tab PO MOWEFR 11/11/18 11/20/18 History DS 800-160 mg] Baclofen [Lioresal] 10 mg PO TID 11/20/18 11/20/18 History Melatonin 3 mg PO HS 11/20/18 11/20/18 History Vancomycin 1.25g/250ml 250 ml IV Q12H 11/20/18 11/20/18 History Allergies Allergy/AdvReac Type Severity Reaction Status Date / Time morphine Allergy Itching Verified 11/20/18 19:15 aspirin AdvReac GI Verified 11/20/18 19:15 BLEEDING , ABDOMINAL PAIN heparin AdvReac abdominal Verified 11/20/18 19:15 pain , GI bleeding ketorolac tromethamine AdvReac migraines Verified 11/20/18 19:15 [From Toradol] Physical Examination On examination, the patient is sitting up in bed in no apparent distress. He is alert and orientated x3. His head is normocephalic and atraumatic. His breathing appears nonlabored. On inspection on the left shoulder, there are no open wounds or lacerations. There is no pain to palpation of the shoulder, humerus, elbow, forearm, or wrist. No pain with PROM of the shoulder. There is an area of the proximal arm with a palpable mass that with surrounding erythema, this area is tender to palpation. Patient has full active ROM of the shoulder without pain or issue. The left upper extremity is warm and well perfused with brisk capillary refill. Sensation is intact to light touch of the left upper extremity. On inspection of the right knee, there is a mild superficial abrasion of the anterior knee. This area is mildly tender to palpation. There is no knee effusion appreciated. No pain with PROM of the knee. The patient is able to perform a single leg raise without pain or issue. The right lower extremity is warm and well perfused with brisk capillary refill. Sensation is intact to light touch of the right lower extremity. Results Right humerus x-rays 11/24/18: No acute fractures or dislocations. Doppler US left upper extremity 11/24/18: Thrombus left internal jugular vein, subclavian vein, axillary vein, brachial vein, ulnar vein. Superficial venous thrombosis within left basilic vein in area of erythema and pain. - Labs Labs: Abnormal Lab Results - Last 24 Hours (Table) 11/24/18 11/24/18 11/25/18 Range/Units 17:34 23:51 04:30 WBC 16.4 H (3.8-10.6) k/uL RBC 2.98 L (4.30-5.90) m/uL Hgb 8.4 L (13.0-17.5) gm/dL Hct 26.2 L (39.0-53.0) % RDW 17.4 H (11.5-15.5) % Neutrophils # 13.1 H (1.3-7.7) k/uL Monocytes # 1.9 H (0-1.0) k/uL Carbon Dioxide (22-30) mmol/L BUN (9-20) mg/dL Glucose (74-99) mg/dL POC Glucose (mg/dL) 169 H 413 H (75-99) mg/dL Alkaline Phosphatase (38-126) U/L Total Protein (6.3-8.2) g/dL Albumin (3.5-5.0) g/dL 11/25/18 11/25/18 11/25/18 Range/Units 04:30 06:19 12:18 WBC (3.8-10.6) k/uL RBC (4.30-5.90) m/uL Hgb (13.0-17.5) gm/dL Hct (39.0-53.0) % RDW (11.5-15.5) % Neutrophils # (1.3-7.7) k/uL Monocytes # (0-1.0) k/uL Carbon Dioxide 35 H (22-30) mmol/L BUN 38 H (9-20) mg/dL Glucose 252 H (74-99) mg/dL POC Glucose (mg/dL) 281 H 133 H (75-99) mg/dL Alkaline Phosphatase 188 H (38-126) U/L Total Protein 4.9 L (6.3-8.2) g/dL Albumin 2.5 L (3.5-5.0) g/dL H & H 11/20/18 11/21/18 11/22/18 Range/Units 18:00 06:50 06:41 Hgb 9.3 L 9.3 L 8.2 L (13.0-17.5) gm/dL Hct 30.0 L 30.2 L 27.7 L (39.0-53.0) % 11/23/18 11/24/18 11/25/18 Range/Units 04:41 04:46 04:30 Hgb 8.9 L 8.0 L 8.4 L (13.0-17.5) gm/dL Hct 29.4 L 26.7 L 26.2 L (39.0-53.0) % Result Diagrams: 11/25/18 04:30 11/25/18 04:30 Assessment and Plan Assessment: Thrombus right upper extremity Right knee abrasion Plan: - The clinical and x-ray findings are discussed with the patient. No intervention is planned at this time. There is no shoulder pain at the time of my exam. - The patient appears to have pain originating from the area of the superficial thrombus. Dr. Shipley has been consulted, per primary team. - Patient may follow-up in the office on an outpatient basis, as needed. Patient discussed with Dr. Branham.
[2018-11-25] MEDS ORDERED: MVI, ADULT NO.4 WITH VIT K 10 ML, TRACE (CONC-1ML/DOSE) 1 ML, POTASSIUM CHLORIDE 20 MEQ... IV ONE ×5 (19:00)
--- NOTE | 2018-11-25 23:55 | P.DS ---
Providers Date of admission: 11/20/18 21:18 Expected date of discharge: 11/25/18 Attending physician: Angel Swanson Consults: 11/22/18 11:19 Consult Physician Routine Consulting Provider: Neto Duarte Consult Reason/Comments: ICU management Do you want consulting provider notified?: Yes 11/22/18 13:05 Consult Physician Routine Consulting Provider: Derick Mortensen Consult Reason/Comments: multiple abdominal fistula's Do you want consulting provider notified?: Yes 11/24/18 11:45 Consult Physician Routine Consulting Provider: Emmanuel Branham Consult Reason/Comments: fall Do you want consulting provider notified?: Yes 11/24/18 13:46 Consult Physician Routine Consulting Provider: Juan José Shipley Consult Reason/Comments: left arm dvt Do you want consulting provider notified?: Yes Primary care physician: Ras Zhao [facility] Course: Hospital course: This is a 48-year-old patient of Dr. Ras Zhao. Patient rather extensive complicated medical history. 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 Patient had been on anticoagulation. 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 The patient has gotten a little insufficiency, chronic anemia and for organ transplant in 2002 including small bowel, pancreas, duodenum and stomach in [place]. Patient also had valvular cardiac surgery done. Patient also had bowel does high since and abdomen had to be opened up with the same. Patient also developed multiple abdominal fistulas and food was coming out of the same. Patient was taken to [facility]. Patient's had multiple surgeries for the same. Including no having an ileostomy bag. Patient does get repeated attacks of pancreatitis.. Patient was in the hospital and discharge order week ago when his present with GI bleed. Initially patient did not want to be transferred to [facility] but then had to be transferred because he became unstable. Now yet again patient presents with increasing abdominal pain. He does get TPN and lipids throughout [place]. Patient is here with his and his mother. Refuses to get transferred to [facility]. Was to get treated here. Understanding well the surgeon said cannot do any surgical intervention on him. Patient also stated that he is supposed of organ transplant that is including his duodenum small bowel yet again. Had some nausea. No fever no chills. Being admitted for the same. Also patient has a venous Doppler. It shows some extension of the prior superficial in DVT. I did discuss the results with the patient at length. He does not want any further anticoagulation specially his had recent bleeds. Does also discussed with Dr. Edwards from vascular surgery. Admitted with acute pancreatitis. Patient's pancreatic enzymes did normalize. Patient still wanted IV Dilaudid. I did speak to them at length that if given his very complicated surgical history I cannot just keep giving him IV Dilaudid as it could be masking more problems with side the abdomen. This morning abdominal pain is much better. He is okay to go home. Discussed with the patient. Consultation: Dr. Duarte and colleagues from lab courier Dr. Mortensen from general surgery Dr. Willy Edwards from vascular surgery Physical examination: VITAL SIGNS: 96, 15, 105/59, 94% on room air GENERAL: Laying in bed, more comfortable. EYES: Pupils equal. Conjunctiva pale. HEENT: External appearance of nose and ears normal, oral cavity dry. NECK: JVD not raised; masses not palpable. HEART: First and second heart sounds are normal; no edema. LUNGS: Respiratory rate increased, decreased breath sounds. ABDOMEN: Multiple abdominal wall fistulas with ostomy bag., Ileostomy bag. Chronically tender. PSYCH: Alert and oriented x3; mood and affect anxiousl. Investigations: White count 16.4 hemoglobin 8.4 potassium 4.2 creatinine 0.87 Amylase 88 lipase 128 Doppler ultrasound of left upper extremity shows some new superficial and DVTs. Admission labs White count 19.9 hemoglobin 98.3 platelets 295 Potassium 4.1 creatinine 0.97 Lipase 511 Discharge diagnosis: -Acute recurrent pancreatitis, biochemically improved POA -COPD in an ex-smoker -4 organ transplant in 2002 including the small bowel, pancreas, duodenum and stomach done at the [facility] -Multiple abdominal fistulas with ostomy bag being followed at [place] -GERD -Chronic gastroparesis -Chronic venous intake vein thrombosis -Immunosuppressed age -Chronic kidney disease stage III from nephrosclerosis -Ileostomy -Hypoalbuminemia likely a combination of acute phase reactant and mild protein calorie malnutrition Disposition: Home Patient Condition at Discharge: Stable Plan - Discharge Summary New Discharge Prescriptions: Continue Sertraline [Zoloft] 150 mg PO DAILY Ferrous Gluconate 325 mg PO BID traZODone HCL 100 mg PO HS Albuterol Sulfate [Proair Hfa] 2 puff INHALATION RT-Q6H PRN PRN Reason: Shortness Of Breath Budesonide/Formoterol Fumarate [Symbicort 160-4.5 Mcg Inhaler] 2 puff INHALATION RT-BID Methadone [Dolophine] 10 mg PO QAM clonazePAM [Klonopin ODT Wafer] 0.25 mg PO HS HYDROcodone/APAP 10-325MG [[place] 10-325] 1 tab PO Q4H PRN PRN Reason: Pain Methadone [Dolophine] 5 mg PO HS Gabapentin 1,200 mg PO TID Tacrolimus [Prograf] 3 mg SL BID QUEtiapine [SEROquel] 50 mg PO HS Sulfamethox-Tmp 800-160Mg [Bactrim DS 800-160 mg] 0.5 tab PO MOWEFR Nystatin 100,000 Unit/ml Susp [Mycostatin Oral Susp] 500,000 unit PO QID Metoprolol Tartrate [Lopressor] 12.5 mg PO BID PRN PRN Reason: Blood Pressure - High Hydrocortisone Sodium Succ 0.4 ml IV Q8H Ergocalciferol [Vitamin D2 (DRISDOL)] 50,000 unit PO MOWEFR Baclofen [Lioresal] 10 mg PO TID Vancomycin 1.25g/250ml 250 ml IV Q12H Melatonin 3 mg PO HS No Action Roxicodone 5mg/5ml 5 mg PO DAILY PRN PRN Reason: Pain Discharge Medication List Ferrous Gluconate 325 mg PO BID 09/02/13 [History] Sertraline [Zoloft] 150 mg PO DAILY 09/02/13 [History] Albuterol Sulfate [Proair Hfa] 2 puff INHALATION RT-Q6H PRN 12/19/16 [History] traZODone HCL 100 mg PO HS 12/19/16 [History] Budesonide/Formoterol Fumarate [Symbicort 160-4.5 Mcg Inhaler] 2 puff INHALATION RT-BID 05/17/17 [History] Methadone [Dolophine] 10 mg PO QAM 05/17/17 [History] clonazePAM [Klonopin ODT Wafer] 0.25 mg PO HS 12/12/17 [History] HYDROcodone/APAP 10-325MG [[place] 10-325] 1 tab PO Q4H PRN 01/10/18 [History] Methadone [Dolophine] 5 mg PO HS 01/22/18 [History] Gabapentin 1,200 mg PO TID 06/18/18 [History] Tacrolimus [Prograf] 3 mg SL BID 07/18/18 [History] Ergocalciferol [Vitamin D2 (DRISDOL)] 50,000 unit PO MOWEFR 11/11/18 [History] Hydrocortisone Sodium Succ 0.4 ml IV Q8H 11/11/18 [History] Metoprolol Tartrate [Lopressor] 12.5 mg PO BID PRN 11/11/18 [History] Nystatin 100,000 Unit/ml Susp [Mycostatin Oral Susp] 500,000 unit PO QID 11/11/18 [History] QUEtiapine [SEROquel] 50 mg PO HS 11/11/18 [History] Sulfamethox-Tmp 800-160Mg [Bactrim DS 800-160 mg] 0.5 tab PO MOWEFR 11/11/18 [History] Baclofen [Lioresal] 10 mg PO TID 11/20/18 [History] Melatonin 3 mg PO HS 11/20/18 [History] Vancomycin 1.25g/250ml 250 ml IV Q12H 11/20/18 [History] Roxicodone 5mg/5ml 5 mg PO DAILY PRN 11/25/18 [History] Follow up Appointment(s)/Referral(s): Ras Zhao MD [Primary Care Provider] - 1-2 days [facility], [NON-STAFF] - As Needed Emmanuel Branham MD [Medical Doctor] - As Needed Patient Instructions/Handouts: Pancreatitis (ED) Activity/Diet/Wound Care/Special Instructions: Patient will be admitted for further management. home infusion/antibiotics as before Discharge Disposition: HOME SELF-CARE
[2018-11-26] MEDS ORDERED: MAGNESIUM SULFATE IV ONE (01:30)
[2018-11-26] MEDS ORDERED: [UNRECOGNIZED DRUG - OTHER] IV ONE (01:30)
[2018-11-26] MEDS ORDERED: POTASSIUM CHLORIDE IV ONE (01:30)
[2018-11-26] MEDS ORDERED: FAT EMULSION 20% 250 ML IV SCH (19:00)
== END 2018-11-25 14:50 | disposition home health service (06) | DRG 439 ==
LOC: EC 18:26 → 4SSUR 21:18 → 2SICU 11-22 12:09
PROVIDERS: ADMIT Hospitalist; ATTEND Hospitalist
PROC: 3E0336Z Introduction of Nutritional Substance into Peripheral Vein, Percutaneous Approach (ICD-10-PCS; principal; 2018-11-21)
DX: K85.90 Acute pancreatitis without necrosis or infection, unspecified (principal); E27.40 Unspecified adrenocortical insufficiency; E44.1 Mild protein-calorie malnutrition; K31.6 Fistula of stomach and duodenum; I82.612 Acute embolism and thrombosis of superficial veins of left upper extremity; I82.722 Chronic embolism and thrombosis of deep veins of left upper extremity; I82.C22 Chronic embolism and thrombosis of left internal jugular vein; Z94.82 Intestine transplant status; Z94.83 Pancreas transplant status; K86.1 Other chronic pancreatitis; K86.81 Exocrine pancreatic insufficiency; K31.84 Gastroparesis; I80.8 Phlebitis and thrombophlebitis of other sites; I48.0 Paroxysmal atrial fibrillation; N18.3 Chronic kidney disease, stage 3 (moderate); D63.1 Anemia in chronic kidney disease; F32.9 Major depressive disorder, single episode, unspecified; F41.9 Anxiety disorder, unspecified; G47.33 Obstructive sleep apnea (adult) (pediatric); I12.9 Hypertensive chronic kidney disease with stage 1 through stage 4 chronic kidney disease, or unspecified chronic kidney disease; J44.9 Chronic obstructive pulmonary disease, unspecified; K21.9 Gastro-esophageal reflux disease without esophagitis; S80.211A Abrasion, right knee, initial encounter; G89.29 Other chronic pain; M54.9 Dorsalgia, unspecified; R01.1 Cardiac murmur, unspecified; Z79.51 Long term (current) use of inhaled steroids; Z79.899 Other long term (current) drug therapy; Z79.891 Long term (current) use of opiate analgesic; Z86.14 Personal history of Methicillin resistant Staphylococcus aureus infection; Z90.49 Acquired absence of other specified parts of digestive tract; Z93.2 Ileostomy status; Z88.6 Allergy status to analgesic agent; Z88.5 Allergy status to narcotic agent; Z88.8 Allergy status to other drugs, medicaments and biological substances; Z87.891 Personal history of nicotine dependence; Z87.01 Personal history of pneumonia (recurrent); Z94.89 Other transplanted organ and tissue status
CPT/HCPCS: 36415; 80048; 80053; 80197; 80202; 82040; 82150; 82330; 83690; 83735; 84100; 85025; 85027; 87497; 94640; 96361; 96374; 96375; 96376; 99284

== ENCOUNTER 2018-11-25 19:57 | Emergency (ER) | payer MEDICARE, BC ==
[2018-11-25 20:00] VITALS: TEMP 98
[2018-11-25] MEDS ORDERED: PANTOPRAZOLE 40 MG/10 ML VIAL IVP STA (20:16)
[2018-11-25] MEDS ORDERED: ONDANSETRON 4 MG/2 ML VIAL IVP STA (20:16)
[2018-11-25] MEDS ORDERED: SODIUM CHLORIDE 0.9% 1,000 ML IV STA ×2 (20:16→21:25)
[2018-11-25] MEDS ORDERED: HYDROmorphone 1 MG/ML 1 ML SYRINGE IVP STA ×3 (20:16→22:13)
[2018-11-25 21:00] LABS: Anisocytosis Slight; Basophils % (A) 0 %; Eosinophils % (A) 0 %; HCT 26.5 % (39.0-53.0); HGB 8.4 gm/dL (13.0-17.5); Hypochromasia Marked; Lymphocytes # (A) 2.1 k/uL (1.0-4.8); Lymphocytes % (A) 14 %; MCH 27.2 pg (25.0-35.0); MCHC 31.9 g/dL (31.0-37.0); MCV 85.3 fL (80.0-100.0); Mean Platelet Volume 12.4; Monocytes # (A) 1.2 k/uL (0-1.0); Monocytes % (A) 8 %; Neutrophils % (A) 77 %; Platelet Count 215 k/uL (150-450); Poikilocytosis Moderate; RDW 17.1 % (11.5-15.5); WBC 15.5 k/uL (3.8-10.6)
[2018-11-25 21:11] LABS: ALT 31 U/L (21-72); AST 27 U/L (17-59); African American GFR (CKD) >90 (>60 ml/min/1.73 sqM); Albumin 2.5 g/dL (3.5-5.0); Alkaline Phosphatase 190 U/L (38-126); Amylase 134 U/L (30-110); Anion Gap 10 mmol/L; Blood Urea Nitrogen 43 mg/dL (9-20); Calcium 8.4 mg/dL (8.4-10.2); Carbon Dioxide 30 mmol/L (22-30); Chloride 104 mmol/L (98-107); Glucose 132 mg/dL (74-99); Potassium 3.4 mmol/L (3.5-5.1); Sodium 144 mmol/L (137-145); Total Bilirubin 0.4 mg/dL (0.2-1.3); Total Protein 5.1 g/dL (6.3-8.2)
[2018-11-25 21:14] LABS: INR 1.1 (<1.2); Partial Thromboplastin Time 22.5 sec (22.0-30.0); Prothrombin Time 11.4 sec (9.0-12.0)
--- NOTE | 2018-11-25 21:24 | ED ---
Abdominal Pain HPI - General Chief Complaint: Abdominal Pain Stated Complaint: pancreatitis Time Seen by Provider: 11/25/18 20:08 Source: patient Mode of arrival: wheelchair Limitations: no limitations - History of Present Illness Initial Comments: This 48-year-old white male presents with a complaint of some abdominal pain. He states that it is in his midepigastric region. He rates it as severe in nature. He does have a long-standing history of pancreatitis. He was just discharged from the hospital 6 hours ago. He was hospitalized for 5 days prior due to his pancreatitis and multiple other medical problems. He apparently does have a history of previous surgery removing part of his pancreas, stomach, and portions of the small intestine. 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 He also has an ostomy bag. He receives TPN every day. He apparently had some macaroni and cheese upon arrival at home and this may have causes pancreatitis to flare once again. He denies any fevers or chills. His been some nausea but no vomiting. No other complaints or modifying factors. - Related Data Home Medications Medication Instructions Recorded Confirmed Ferrous Gluconate 325 mg PO BID 09/02/13 11/25/18 Sertraline [Zoloft] 150 mg PO DAILY 09/02/13 11/25/18 Albuterol Sulfate [Proair Hfa] 2 puff INHALATION RT-Q6H PRN 12/19/16 11/25/18 traZODone HCL 100 mg PO HS 12/19/16 11/25/18 Budesonide/Formoterol Fumarate 2 puff INHALATION RT-BID 05/17/17 11/25/18 [Symbicort 160-4.5 Mcg Inhaler] Methadone [Dolophine] 10 mg PO QAM 05/17/17 11/25/18 clonazePAM [Klonopin ODT Wafer] 0.25 mg PO HS 12/12/17 11/25/18 HYDROcodone/APAP 10-325MG [[place] 1 tab PO Q4H PRN 01/10/18 11/25/18 10-325] Methadone [Dolophine] 5 mg PO HS 01/22/18 11/25/18 Gabapentin 1,200 mg PO TID 06/18/18 11/25/18 Tacrolimus [Prograf] 3 mg SL BID 07/18/18 11/25/18 Ergocalciferol [Vitamin D2 50,000 unit PO MOWEFR 11/11/18 11/25/18 (DRISDOL)] Hydrocortisone Sodium Succ 0.4 ml IV Q8H 11/11/18 11/25/18 Metoprolol Tartrate [Lopressor] 12.5 mg PO BID PRN 11/11/18 11/25/18 Nystatin 100,000 Unit/ml Susp 500,000 unit PO QID 11/11/18 11/25/18 [Mycostatin Oral Susp] QUEtiapine [SEROquel] 50 mg PO HS 11/11/18 11/25/18 Sulfamethox-Tmp 800-160Mg [Bactrim 0.5 tab PO MOWEFR 11/11/18 11/25/18 DS 800-160 mg] Baclofen [Lioresal] 10 mg PO TID 11/20/18 11/25/18 Melatonin 3 mg PO HS 11/20/18 11/25/18 Vancomycin 1.25g/250ml 250 ml IV Q12H 11/20/18 11/25/18 Roxicodone 5mg/5ml 5 mg PO DAILY PRN 11/25/18 11/25/18 Allergies Allergy/AdvReac Type Severity Reaction Status Date / Time morphine Allergy Itching Verified 11/25/18 20:30 aspirin AdvReac GI Verified 11/25/18 20:30 BLEEDING , ABDOMINAL PAIN heparin AdvReac abdominal Verified 11/25/18 20:30 pain , GI bleeding ketorolac tromethamine AdvReac migraines Verified 11/25/18 20:30 [From Toradol] Review of Systems ROS Statement: Those systems with pertinent positive or pertinent negative responses have been documented in the HPI. ROS Other: All systems not noted in ROS Statement are negative. 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 blood clot in aortic graft History of Any Multi-Drug Resistant Organisms: C-DIFF, ESBL, MRSA Date of last positivie culture/infection: MRSA sputum 05/29/17 MDRO Source:: C-diff stool 05/11/18 colonized Past Surgical History: Bowel Resection, Cholecystectomy Additional Past Surgical History / Comment(s): Multivisceral organ transplant including bowel, doudenum,pancreas, and stomach at [facility]- follows thru [facility],spleen removed, left knee arthrotomy, EGD, colonoscopy, ERCP with insertion of a pancreatic duct stent- since removed . ileostomy in october 2017, dehised x 2, repair of fistula, second fistula appeared may 01, 2018, pt currently has ostomy bag in which fistula drained into, colonized c-diff, MRSA in sputum a year ago, as valve surgery, varghese catheter. fistulas returned after attempted repair. Past Anesthesia/Blood Transfusion Reactions: No Reported Reaction Additional Past Anesthesia/Blood Transfusion Reaction / Comment(s): STATES R/T TO MULTIPLE SX HE REQUIRES A LOT OF MEDICATION for anesthesia. He has had multiple blood transfusions without reaction. Past Psychological History: Anxiety, Depression Smoking Status: Former smoker Past Alcohol Use History: None Reported Past Drug Use History: None Reported - Past Family History Mother History Unknown: Yes Additional Family Medical History / Comment(s): pt is adopted, does not know any hx Father History Unknown: Yes Additional Family Medical History / Comment(s): Pt is adopted and knows no history. General Exam - General Exam Comments Initial Comments: GENERAL: The patient is in a fair amount of distress and is groaning. VITAL SIGNS: Heart rate, blood pressure, respiratory rate reviewed as recorded in nurse's notes. EYES: Pupils are round and reactive. Extraocular movements are intact. No conjunctival / lid redness or swelling. ENT: No external evidence of injury, swelling, or ecchymosis. Airway is patent. Throat is clear. NECK: Nontender. No swelling or evidence of injury. No subcutaneous emphysema. Trachea is midline. No thyroid mass. HEART: Regular rate and rhythm. Good peripheral pulses. LUNGS/CHEST: Breath sounds clear and equal bilaterally. No rales, rhonchi, or wheezes. No ecchymosis, subcutaneous emphysema, or tenderness. ABDOMEN: Patient does have an ostomy bag present. There is tenderness in the midepigastric region primarily. There are multiple enterocutaneous fistulas throughout the abdomen with the surrounding bag collecting fluid from these sites. EXTREMITIES: No extremity tenderness. Normal muscle tone and function. No thoracolumbar tenderness. NEUROLOGIC: Sensation is grossly intact. Cranial nerve exam reveals face is symmetrical, tongue is midline, speech is clear. SKIN: No abrasions or ecchymosis is noted. No induration or masses noted. PSYCHIATRIC: Alert and oriented. Appropriate behavior and judgment. Limitations: no limitations Course Vital Signs 11/25/18 11/25/18 11/25/18 19:58 21:59 22:00 Temperature 98.0 F Pulse Rate 129 H 115 H 98 Respiratory 24 20 18 Rate Blood Pressure 97/65 111/63 124/64 O2 Sat by Pulse 98 96 95 Oximetry 11/26/18 00:47 Temperature Pulse Rate 103 H Respiratory 20 Rate Blood Pressure 111/70 O2 Sat by Pulse 95 Oximetry Medical Decision Making - Medical Decision Making The patient was seen and examined. All diagnostics are reviewed. An IV is established and he is thoroughly hydrated. He also sees Dilaudid and Zofran intravenously. He complains of continued pain and is requesting additional Dilaudid stating that it usually takes at least 2 mg and is unwilling to go to x-ray until he gets a second milligram of Dilaudid. A second milligram of Dilaudid is given intravenously. His laboratory is reviewed and this does show mild hypokalemia as well as anemia. There is mild elevation of his pancreatic enzymes. There is evidence of a leukocytosis. It appears that his failed outpatient treatment and will be required for further admission. He is quite tachycardic initially. The acute abdominal series does not show any acute abnormalities. There is evidence of a urinary tract infection and Rocephin is given intravenously. The patient also receives potassium replacement intravenou sly. A long discussion was held with Dr. Swanson and he relates that he is not interested in admitting the patient to our hospital and that he needs to go to [facility]. The case also was discussed with Dr. Mortensen and he also was not interested in admitting the patient to our hospital and feels as though he needs to go to [facility]. This is discussed with the patient and his . It is felt as though patient would need a computed tomography scan of his abdomen and pelvis at this time. The contrast cannot be given through his port and therefore an IV would need to be established. The nurse only is able to find an IV in his hand but he is refusing to have IV started in his hand. Therefore, a noncontrasted computed tomography scan is completed. The patient is quite insistent on pain medications and this is the only thing he is interested in every time I did discuss his care with him. He is given a third milligram of Dilaudid intravenously and then receives a fourth milligram. He is quite insistent on receiving more. The care is discussed with Dr. Mickey Palacios , transplant surgeon, from [facility]. He states that he does accept the patient for transfer. His number is [phone]. He recommends transferring the patient through the transfer center at [facility]. This is discussed with him at 1:20 AM. Appropriate transfer paperwork is completed. We are just awaiting for coordination of a hospital bed and EMS transport at this point and patient will likely facility as soon as possible. - Lab Data Result diagrams: 11/25/18 20:36 11/25/18 20:36 Lab Results 11/25/18 11/25/18 11/25/18 Range/Units 20:36 20:36 20:36 WBC 15.5 H (3.8-10.6) k/uL RBC 3.10 L (4.30-5.90) m/uL Hgb 8.4 L (13.0-17.5) gm/dL Hct 26.5 L (39.0-53.0) % MCV 85.3 (80.0-100.0) fL MCH 27.2 (25.0-35.0) pg MCHC 31.9 (31.0-37.0) g/dL RDW 17.1 H (11.5-15.5) % Plt Count 215 (150-450) k/uL Neutrophils % 77 % Lymphocytes % 14 % Monocytes % 8 % Eosinophils % 0 % Basophils % 0 % Neutrophils # 12.0 H (1.3-7.7) k/uL Lymphocytes # 2.1 (1.0-4.8) k/uL Monocytes # 1.2 H (0-1.0) k/uL Eosinophils # 0.0 (0-0.7) k/uL Basophils # 0.0 (0-0.2) k/uL Hypochromasia Marked Poikilocytosis Moderate Anisocytosis Slight PT 11.4 (9.0-12.0) sec INR 1.1 (<1.2) APTT 22.5 (22.0-30.0) sec Sodium 144 (137-145) mmol/L Potassium 3.4 L (3.5-5.1) mmol/L Chloride 104 (98-107) mmol/L Carbon Dioxide 30 (22-30) mmol/L Anion Gap 10 mmol/L BUN 43 H (9-20) mg/dL Creatinine 1.07 (0.66-1.25) mg/dL Est GFR (CKD-EPI)AfAm >90 (>60 ml/min/1.73 sqM) Est GFR (CKD-EPI)NonAf 81 (>60 ml/min/1.73 sqM) Glucose 132 H (74-99) mg/dL Calcium 8.4 (8.4-10.2) mg/dL Total Bilirubin 0.4 (0.2-1.3) mg/dL AST 27 (17-59) U/L ALT 31 (21-72) U/L Alkaline Phosphatase 190 H (38-126) U/L Total Protein 5.1 L (6.3-8.2) g/dL Albumin 2.5 L (3.5-5.0) g/dL Amylase 134 H (30-110) U/L Lipase 350 H (23-300) U/L Urine Color Urine Appearance (Clear) Urine pH (5.0-8.0) Ur Specific [place] (1.001-1.035) Urine Protein (Negative) Urine Glucose (UA) (Negative) Urine Ketones (Negative) Urine Blood (Negative) Urine Nitrite (Negative) Urine Bilirubin (Negative) Urine Urobilinogen (<2.0) mg/dL Ur Leukocyte Esterase (Negative) Urine RBC (0-5) /hpf Urine WBC (0-5) /hpf Urine WBC Clumps (None) /hpf Urine Bacteria (None) /hpf Urine Mucus (None) /hpf 11/25/18 Range/Units 22:02 WBC (3.8-10.6) k/uL RBC (4.30-5.90) m/uL Hgb (13.0-17.5) gm/dL Hct (39.0-53.0) % MCV (80.0-100.0) fL MCH (25.0-35.0) pg MCHC (31.0-37.0) g/dL RDW (11.5-15.5) % Plt Count (150-450) k/uL Neutrophils % % Lymphocytes % % Monocytes % % Eosinophils % % Basophils % % Neutrophils # (1.3-7.7) k/uL Lymphocytes # (1.0-4.8) k/uL Monocytes # (0-1.0) k/uL Eosinophils # (0-0.7) k/uL Basophils # (0-0.2) k/uL Hypochromasia Poikilocytosis Anisocytosis PT (9.0-12.0) sec INR (<1.2) APTT (22.0-30.0) sec Sodium (137-145) mmol/L Potassium (3.5-5.1) mmol/L Chloride (98-107) mmol/L Carbon Dioxide (22-30) mmol/L Anion Gap mmol/L BUN (9-20) mg/dL Creatinine (0.66-1.25) mg/dL Est GFR (CKD-EPI)AfAm (>60 ml/min/1.73 sqM) Est GFR (CKD-EPI)NonAf (>60 ml/min/1.73 sqM) Glucose (74-99) mg/dL Calcium (8.4-10.2) mg/dL Total Bilirubin (0.2-1.3) mg/dL AST (17-59) U/L ALT (21-72) U/L Alkaline Phosphatase (38-126) U/L Total Protein (6.3-8.2) g/dL Albumin (3.5-5.0) g/dL Amylase (30-110) U/L Lipase (23-300) U/L Urine Color Yellow Urine Appearance Cloudy (Clear) Urine pH 6.0 (5.0-8.0) Ur Specific [place] 1.024 (1.001-1.035) Urine Protein 1+ H (Negative) Urine Glucose (UA) 1+ H (Negative) Urine Ketones Negative (Negative) Urine Blood Small H (Negative) Urine Nitrite Negative (Negative) Urine Bilirubin Negative (Negative) Urine Urobilinogen <2.0 (<2.0) mg/dL Ur Leukocyte Esterase Large H (Negative) Urine RBC 12 H (0-5) /hpf Urine WBC >182 H (0-5) /hpf Urine WBC Clumps Many H (None) /hpf Urine Bacteria Many H (None) /hpf Urine Mucus Few H (None) /hpf Disposition Clinical Impression: Intractable abdominal pain, Nausea and vomiting, Pancreatitis, Sinus tachycardia, Enterovascular fistula, Hypokalemia, Chronic anemia, Failure of outpatient treatment, Urinary tract infection, History of organ transplantation Disposition: OTHER INSTITUTION NOT DEFINED Condition: Fair Is patient prescribed a controlled substance at d/c from ED?: No Time of Disposition: 01:50 - Out of Hospital Transfer - Req. Specs Out of Hospital Transfer - Requested Specifics: Telemetry Unit ([facility])
--- NOTE | 2018-11-25 21:49 | XR ---
EXAMINATION TYPE: XR abdomen acute w cxr, 4 views DATE OF EXAM: 11/25/2018 COMPARISON: 07/04/2018 HISTORY: Pain TECHNIQUE: 2 upright and 2 supine views FINDINGS: Chest: Right IJ catheter tip superimposed over the cavoatrial junction. No abnormal gas collections. There is no pulmonary edema. However, there is consolidative peribronchial retrocardiac opacity, whic h could correlate with a clinical diagnosis of left lower lobe bronchopneumonia. Abdomen and pelvis: Pigtail catheter superimposed over the right L2 transverse process. There is no evidence for pneumoperitoneum. The bowel gas pattern is unremarkable as there is air thro ughout nondilated small and large bowel. No sizeable air fluid levels. No mass effects are seen. No u nusual calcifications. IMPRESSION: 1) Chest findings as above. 2) No acute abdominal pelvic process.
[2018-11-25] MEDS ORDERED: POTASSIUM CHLORIDE 20 MEQ in WATER FOR INJECTION 1 100ML.BAG IVPB ONE (22:00)
[2018-11-25 22:28] LABS: Appearance,Urine Cloudy (Clear); Bacteria,Urine Many /hpf; Bilirubin,Urine Negative (Negative); Blood,Urine Small (Negative); Color,Urine Yellow; Glucose,Urine (UA) 1+ (Negative); Ketones,Urine Negative (Negative); Leukocyte Esterase,Urine Large (Negative); Mucus,Urine Few /hpf; Nitrite,Urine Negative (Negative); Protein,Urine 1+ (Negative); RBC,Urine 12 /hpf (0-5); Specific Gravity,Urine 1.024 (1.001-1.035); Urobilinogen,Urine <2.0 mg/dL (<2.0); WBC,Urine >182 /hpf (0-5)
[2018-11-26] MEDS ORDERED: HYDROmorphone 1 MG/ML 1 ML SYRINGE IVP STA ×2 (00:18→01:56)
--- NOTE | 2018-11-26 00:57 | CT ---
EXAM: CT Abdomen and Pelvis Without Intravenous Contrast CLINICAL HISTORY: Pain TECHNIQUE: Axial computed tomography images of the abdomen and pelvis without intravenous contrast. CTDI is 0.242, 0.242, 7.8 mGy and DLP is 506.2 mGy- cm. This CT exam was performed using one or more of the following dose reduction techniques: automated exposure control, adjustment of the mA and/or kV according to patient size, and/or use of iterative reconstruction technique. COMPARISON: CT abdomen and pelvis dated 05/17/2017 FINDINGS: Lung bases: Bibasilar atelectasis. Heart: Trace pericardial effusion. ABDOMEN: Liver: Unremarkable. Gallbladder and bile ducts: Gallbladder is surgically absent. Pancreas: Unremarkable. Spleen: Spleen is surgically absent. Adrenals: Unremarkable. Kidneys and ureters: Presumed small cysts within both kidneys. No hydronephrosis. Stomach and bowel: Postsurgical changes within the bowel with multiple suspected fistulas again noted to include the stomach and small bowel within the anterior abdominal wall. Suspect right lower quadrant ileostomy. No bowel obstruction. PELVIS: Appendix: Surgically absent. Bladder: Unremarkable. Reproductive: Unremarkable as visualized. ABDOMEN and PELVIS: Intraperitoneal space: Unremarkable. Bones/joints: Remote healed left-sided rib fractures. No dislocation. Soft tissues: Unremarkable. Vasculature: Infrarenal abdominal aortic graft is unchanged. No abdominal aortic aneurysm. Lymph nodes: Unremarkable. IMPRESSION: Postsurgical changes within the bowel with multiple suspected fistulas again noted to include the stomach and small bowel within the anterior abdominal wall. Suspect right lower quadrant ileostomy. No bowel obstruction.
[2018-11-26] MEDS ORDERED: LORazepam 2 MG/ML INJ IV STA (01:56)
[2018-11-26 06:40] VITALS: BP 111/67; PULSE 119; RESP 16
== END 2018-11-26 03:50 | disposition other institution (70) ==
LOC: EC 19:57
DX: K85.90 Acute pancreatitis without necrosis or infection, unspecified (principal); E87.6 Hypokalemia; D64.9 Anemia, unspecified; N39.0 Urinary tract infection, site not specified; K63.2 Fistula of intestine; R00.0 Tachycardia, unspecified; D72.829 Elevated white blood cell count, unspecified; I48.91 Unspecified atrial fibrillation; J44.9 Chronic obstructive pulmonary disease, unspecified; I48.0 Paroxysmal atrial fibrillation; F41.9 Anxiety disorder, unspecified; F32.9 Major depressive disorder, single episode, unspecified; G47.33 Obstructive sleep apnea (adult) (pediatric); Z99.89 Dependence on other enabling machines and devices; Z86.14 Personal history of Methicillin resistant Staphylococcus aureus infection; Z98.890 Other specified postprocedural states; Z90.49 Acquired absence of other specified parts of digestive tract; Z94.82 Intestine transplant status; Z94.83 Pancreas transplant status; Z87.891 Personal history of nicotine dependence; Z93.2 Ileostomy status; Z93.3 Colostomy status; Z79.51 Long term (current) use of inhaled steroids; Z79.891 Long term (current) use of opiate analgesic; Z79.52 Long term (current) use of systemic steroids; Z79.899 Other long term (current) drug therapy; Z88.5 Allergy status to narcotic agent; Z88.6 Allergy status to analgesic agent; Z88.8 Allergy status to other drugs, medicaments and biological substances; Z90.81 Acquired absence of spleen
CPT/HCPCS: 36415; 93005; 80053; 82150; 83690; 85025; 85610; 85730; 81001; 74022; 74176; 99285; 96365; 96367; 96366 ×3; 96375 ×4; 96376 ×3; 96361; J2060; J3480; J2405; J0696; J1170 ×2; C9113